=== PATIENT | male | born 1935 | race Caucasian/White ===

== ENCOUNTER 2018-03-28 13:15 | Inpatient (IN) | payer MEDICARE, BC, SELFPAY ==
[2018-03-28] VITALS (18 sets, daily range): BP systolic 99–141; BP diastolic 51–72; PULSE 57–84; RESP 14–21; TEMP 36.6–37; O2SAT 93–98; BMI 39.8; BMI 39.2
--- NOTE | 2018-03-28 13:38 | EKG12_ITS ---
Test Reason : Blood Pressure : / mmHG Vent. Rate : 065 BPM Atrial Rate : 065 BPM P-R Int : 202 ms QRS Dur : 102 ms QT Int : 420 ms P-R-T Axes : 031 -34 016 degrees QTc Int : 436 ms Normal sinus rhythm with sinus arrhythmia Left axis deviation Abnormal ECG Confirmed by STEVE PEOPLES, MINOR ([id number]), news editor ALEX LUCIO ([id number]) on 03/31/2018 2:48:25 PM Referred By: EMERALD Confirmed By:MINOR WILSON MD
--- NOTE | 2018-03-28 13:45 | RAD_ITS ---
STUDY: X-RAY CHEST REASON FOR EXAM: Male, 82 years old. Chest pain. Weakness. TECHNIQUE: Single AP portable view of the chest. COMPARISON: Comparison is made with prior study dated December 02, 2016. FINDINGS: Hyperinflation. Scattered calcified granulomas. There is no demonstrated pleural abnormality. There is mild cardiac enlargement. Normal mediastinum and joey. There is prominence of the pulmonary hilar arteries without peripheral pulmonary vascular congestion, suggesting pulmonary hypertension. There is atherosclerotic calcification of the aortic arch with tortuosity. There are diffuse degenerative changes of the visualized thoracic spine. Normal visualized ribs, clavicles, and shoulders. There is no demonstrated abnormality of the visualized soft tissue structures of the upper abdomen. RAD/Chest 1 View (Portable) IMPRESSION: Scattered calcified granulomas. Hyperinflation. Prominence of the pulmonary hilar arteries. Electronically Signed: Steve Wyatt MD at 13:59 EST Tel [phone], Service support ,
[2018-03-28] MEDS: Aspirin 81 MG TAB.CHEW 324 MG PO (13:55)
[2018-03-28 14:09] LABS: Hematocrit 24.3 % (40-54); Hemoglobin 7.6 g/dl (13.0-16.5); Mean Corp Hgb Conc 31.3 g/gl (32-36); Mean Corpuscular Hgb 31.9 pg (27.0-32.0); Mean Corpuscular Volume 102.1 fL (80-94); Mean Platelet Vol. 9.8 fl (6.2-12.0); Platelet Count 206 K/mm3 (150-450); RBC Distribution Width CV 16.1 % (11.6-14.6); RBC Distribution Width SD 57.4 fl (35.1-43.9); Red Blood Count 2.38 M/mm3 (4.6-6.2); White Blood Count 13.4 K/mm3 (4.4-11.0)
[2018-03-28 14:15] LABS: Differential Indicated MANUAL DIFF; POSITIVE COUNT YES; POSITIVE DIFFERENTIAL NO; POSITIVE MORPHOLOGY YES
[2018-03-28 14:17] LABS: Erythrocyte Sedimentation Rate 24 mm/hr (0-20)
[2018-03-28 14:24] LABS: Anion Gap 9 (5-15); BUN 54 mg/dL (7-18); BUN/Creat Ratio 31.8 RATIO (10-20); Calcium,Total 8.4 mg/dL (8.5-10.1); Chloride 113 mmol/L (98-107); EST Glomerular Filtration Rate 41 mL/min (>60); Est Glom Filt Rate - Afr Amer 50 mL/min (>60); Estimated Creatinine Clearance 39.62 ml/min; Glucose 134 mg/dL (74-106); Potassium 4.5 mmol/L (3.5-5.1); Sodium Level 141 mmol/L (136-145)
[2018-03-28 14:33] LABS: Eosinophil 2 % (0-5); Lymphocyte 13 % (19-41); Metamyelocyte 1 % (0-1); Monocyte 9 % (0-10); Neutrophil-Band 1 % (0-5); Neutrophil-Segmented 74 % (47-70); Total Cells Counted 100 (MANUAL DIFF)
[2018-03-28 14:34] LABS: Absolute Neutrophil Count 10.7 X10^3/uL (2.0-7.7); Hypochromasia 2+; Platelet Estimate ADEQUATE (ADEQ); Polychromasia RARE
[2018-03-28 14:35] LABS: Absolute Lymphocyte Count 1.74 X10^3/ul (0.83-4.51)
--- NOTE | 2018-03-28 15:04 | NURSING ---
DR CAMPBELL IN ER
--- NOTE | 2018-03-28 15:20 | NURSING ---
PCU ANEMIA, NSTEMI PAINTSIL
--- NOTE | 2018-03-28 15:25 | ED.VISSUMM ---
- ER Visit Summary Date of Service: 03/28/18 Chief Complaint: Chest pain History of Present Illness: The patient is a [address] Lovell. He reports that his chest pain that began 4 days ago. States that this only occurs at night when he lays down. Complains of a sharp pain to both sides of his chest that begins when he lays down. States pain is 7-10 at worst and is pain-free currently. States pain resolves when he gets up and sits in his recliner. Does report it makes him very short of breath. Patient does report that over the past 4 days he is also had dyspnea on exertion. However, he does not have chest pain with exertion. Patient states that this all began the day after he got a flu shot. States that since that time he has not felt well. He complains of generalized weakness. He reports that he had 2 days of diarrhea. He did not look at the stool. He does not know if it was black and tarry. He reports that he took Kaopectate and has not had diarrhea for the past 1-2 days. He reports he had a normal bowel movement today. Patient reports that his last colonoscopy was approximately [address] Saleh. States he gets colonoscopy every 5 years. He denies any source of blood loss. Is not had any nosebleeds or injuries. Does report he takes Advil twice a day for back pain. Physical Examination: Vitals: 98.1, 99/54, 84, 18, 93% room air which is not hypoxic. General: Well-nourished and well-developed. Head: Normocephalic atraumatic. Neck: Supple, no lymphadenopathy. No JVD. Nontender. Cardiovascular: Regular rate and rhythm. 2 out of 6 systolic murmur. Respiratory: No respiratory distress. Clear to auscultation bilaterally. No crackles. Abdominal: Soft, nontender, nondistended, normal bowel sounds. No guarding, rebound, or peritoneal signs. Back: Nontender. Extremities: Nontender, 1+ pitting edema of his lower extremity bilaterally. Skin: Normal color, no rash. Neurologic: Alert and oriented ?3. Cranial nerves II through XII are intact. Normal strength and sensation. Psych: Normal affect. Test Results: EKG is sinus at 65 with Q waves in leads III. Is essentially unchanged from November 2016. Troponin is 1.21. Chem-7 is more for chloride 113, CO2 of 19, BUN 54, creatinine 1.7, glucose 134, calcium 8.4. CBC is more for a white count of 13.4 with 74 segmented neutrophils and 13 lymphocytes. H&H is 7.6 and 24.3. His last hemoglobin was November 2016 at that time it was 12.4. ESR is 24. Chest x-ray shows chronic changes. Emergency Department Course and Treatment: Patient was initially treated with aspirin. When his labs returned I went in and talked with him about any source of blood loss and he does not know of any. Does report that his diarrhea was malodorous. He was given Protonix IV. Treatment Plan: Patient was discussed with Dr. Parker. At this time with the anemia as well as the atypical nature of this the patient will not be anticoagulated. He asked patient get an echocardiogram to rule out pericarditis/myocarditis and an effusion. The patient was also discussed with Dr. Kumar and Dr. Rodgers. He was typed and crossed for 2 units of packed red blood cells. He is resting comfortably. Disposition: Admitted in serious condition. Impression: 1. Anemia. 2. Non-ST elevation [place]. 3. Chronic renal insufficiency. 4. Critical care time 30 minutes. This note was generated with [employer] dictation software. It may contain incorrect words, spelling, and punctuation that were not noted in review of the chart prior to signing ED Disposition - Plan for ED Patient: Chief Complaint: Chest Pain Referrals: Alexandro Lovell MD [Primary Care Provider] -
--- NOTE | 2018-03-28 15:31 | ED.DCSUM_ITS ---
- ER Visit Summary Date of Service: 03/28/18 Chief Complaint: Chest pain History of Present Illness: The patient is a [address] Lovell. He reports that his chest pain that began 4 days ago. States that this only occurs at night when he lays down. Complains of a sharp pain to both sides of his chest that begins when he lays down. States pain is 7-10 at worst and is pain- free currently. States pain resolves when he gets up and sits in his recliner. Does report it makes him very short of breath. Patient does report that over the past 4 days he is also had dyspnea on exertion. However, he does not have chest pain with exertion. Patient states that this all began the day after he got a flu shot. States that since that time he has not felt well. He complains of generalized weakness. He reports that he had 2 days of diarrhea. He did not look at the stool. He does not know if it was black and tarry. He reports that he took Kaopectate and has not had diarrhea for the past 1-2 days. He reports he had a normal bowel movement today. Patient reports that his last colonoscopy was approximately [address] Saleh. States he gets colonoscopy every 5 years. He denies any source of blood loss. Is not had any nosebleeds or injuries. Does report he takes Advil twice a day for back pain. Physical Examination: Vitals: 98.1, 99/54, 84, 18, 93% room air which is not hypoxic. General: Well-nourished and well-developed. Head: Normocephalic atraumatic. Neck: Supple, no lymphadenopathy. No JVD. Nontender. Cardiovascular: Regular rate and rhythm. 2 out of 6 systolic murmur. Respiratory: No respiratory distress. Clear to auscultation bilaterally. No crackles. Abdominal: Soft, nontender, nondistended, normal bowel sounds. No guarding, rebound, or peritoneal signs. Back: Nontender. Extremities: Nontender, 1+ pitting edema of his lower extremity bilaterally. Skin: Normal color, no rash. Neurologic: Alert and oriented ?3. Cranial nerves II through XII are intact. Normal strength and sensation. Psych: Normal affect. Test Results: EKG is sinus at 65 with Q waves in leads III. Is essentially unchanged from November 2016. Troponin is 1.21. Chem-7 is more for chloride 113, CO2 of 19, BUN 54, creatinine 1.7, glucose 134, calcium 8.4. CBC is more for a white count of 13.4 with 74 segmented neutrophils and 13 lymphocytes. H&H is 7.6 and 24.3. His last hemoglobin was November 2016 at that time it was 12.4. ESR is 24. Chest x-ray shows chronic changes. Emergency Department Course and Treatment: Patient was initially treated with aspirin. When his labs returned I went in and talked with him about any source of blood loss and he does not know of any. Does report that his diarrhea was malodorous. He was given Protonix IV. Treatment Plan: Patient was discussed with Dr. Parker. At this time with the anemia as well as the atypical nature of this the patient will not be anticoagulated. He asked patient get an echocardiogram to rule out per icarditis/myocarditis and an effusion. The patient was also discussed with Dr. Kumar and Dr. Rodgers. He was typed and crossed for 2 units of packed red blood cells. He is resting comfortably. Disposition: Admitted in serious condition. Impression: 1. Anemia. 2. Non-ST elevation [place]. 3. Chronic renal insufficiency. 4. Critical care time 30 minutes. This note was generated with [employer] dictation software. It may contain incorrect words, spelling, and punctuation that were not noted in review of the chart prior to signing ED Disposition - Plan for ED Patient: Chief Complaint: Chest Pain Referrals: Alexandro Lovell MD [Primary Care Provider] -
--- NOTE | 2018-03-28 15:52 | HP.PCM_ITS ---
Problem List (1) GI bleed Status: Acute Qualifiers: GI bleed type/associated pathology: unspecified gastrointestinal hemorrhage type Qualified Code(s): K92.2 - Gastrointestinal hemorrhage, unspecified (2) Macrocytic anemia Status: Chronic (3) Osteoarthritis Status: Chronic Qualifiers: Osteoarthritis location: unspecified site Osteoarthritis type: unspecified Qualified Code(s): M19.90 - Unspecified osteoarthritis, unspecified site (4) Hypothyroidism Status: Chronic Qualifiers: Hypothyroidism type: unspecified Qualified Code(s): E03.9 - Hypothyroidism, unspecified (5) Gout Status: Chronic Qualifiers: Gout site: unspecified site Gout etiology: unspecified cause Chronicity: unspecified Qualified Code(s): M10.9 - Gout, unspecified (6) HTN (hypertension) Status: Chronic Qualifiers: Hypertension type: essential hypertension Qualified Code(s): I10 - Essential (primary) hypertension History of Present Illness Date of Admission: 03/28/18 Chief Complaint: Chest pain - 4 day. Fatigue - for some days The patient is a 82 year old M with past medical history of chronic back pain, on ibuprofen, hypothyroidism, hypertension who comes in with complaints of chest pain that has been going on for about 4 days. He attributes this to some flu shot today he had 4 days prior. He had generalized pain and diarrhea after the flu shot. Over the last 2 days, he has noticed melena stools. He admits to using ibuprofen 2 tablets 3 times a day for chronic back pain. He developed chest pain that started days ago, substernal, nonradiating, not associated with any symptom. He admits to feeling slightly lightheaded. He denied any history of cardiac conditions. No history of [place] or stents. Vitals in ED, temp 98.1F, HR 84, BP 99/54, RR 18, SpO2 98% on RA. Labs showed RBC count of 3.4, hemoglobin 7.6, MCV 102.1, platelet count 206, sodium 141, potassium 4.5, chloride 113, bicarbonate 19, BUN 54, creatinine 1.7, troponins were elevated at 1.210. EKG shows NSR, no acute ST-T changes. Cardiology consulted by ED. Past Medical History Past Medical History (Chronic Problems): Chronic Problems Macrocytic anemia (Chronic) Morbid obesity with BMI of 40.0-44.9, adult (Chronic) Osteoarthritis (Chronic) Hypothyroidism (Chronic) Gout (Chronic) HTN (hypertension) (Chronic) CKD (chronic kidney disease) stage 3, GFR 30-59 ml/min (Chronic) Allergies No Known Allergies Allergy (Verified 05/19/16 03:11) Home Medications: Ambulatory Orders Medication Instructions Recorded RX: Multivitamin [Daily Multiple 1 each PO DAILY 05/19/16 Vitamin] RX: Aspirin 650 mg PO DAILY 12/02/16 RX: Meclizine HCl [Antivert] 12.5 mg PO TID PRN PRN #30 tablet 12/03/16 Ibuprofen [Advil] 400 mg PO DAILY 03/28/18 Irbesartan 150 mg PO DAILY 03/28/18 Levothyroxine Sodium [Synthroid] 125 mcg PO DAILY 03/28/18 Oxaprozin [Daypro] 600 mg PO DAILY 03/28/18 RX: Allopurinol [Zyloprim] 300 mg PO DAILY 03/28/18 RX: Fluoxetine HCl 40 mg PO DAILY 03/28/18 Surgical History: - - Bilateral total hip repair, bilateral foot surgeries. Psychiatric History: No pertinent psych hx Smoking Status: Former smoker Tobacco Use: Non-smoker Alcohol: None Drugs: None - *Family History Maternal History Items: No pertinent history Paternal History Items: Cancer - Tobacco user, lung cancer diagnosis. Review of Systems Constitutional: Reports: Weakness. Denies: Anorexia, Chills, Fever, Malaise, Weight Change Eyes: Denies: Blurred vision, Conjunctivae Inflammation, Double vision, Pain, Redness HEENT: Denies: Difficulty Hearing, Difficulty Swallowing, Head Aches, Hearing Changes, Nasal bleeding, Nasal Congestion, Sinus Congestion, Sinus Drainage Cardiovascular: Reports: Chest Pain, Chest Pressure, Chest Tightness, Light Headedness. Denies: Orthopnea, Palpitations, Paroxysmal Noc. Dyspnea Respiratory: Reports: Shortness of Breath, Shortness of breath upon exertion. Denies: Cough, Shortness of breath at rest, Sputum production Gastrointestinal: Denies: Abdominal Pain, Constipation, Hematemesis, Hematochezia, Nausea, Melena, Vomiting Genitourinary: Denies: Dysuria, Frequency, Incontinence Musculoskeletal: Denies: Joint Pain, Joint stiffness, Joint swelling, Joint Tenderness Skin: Denies: Rash, Wounds Neurological: Denies: Difficulty swallowing, Focal weakness, Numbness, Tingling Psychiatric: Denies: Anxiety, Depression, Homicidal Ideations, Suicidal Ideations Hematologic/ Lymphatic: Denies: Easy Bruising, Easy Bleeding VTE Information - Inpt Only VTE Present on Admission: No VTE Pharm Prophylaxis ordered?: Yes Patient Problems: Active and Suspected Problems GI bleed (Acute) - Physical Exam General: Alert, Oriented x3, Cooperative, - - obese HEENT: Atraumatic, PERRLA, EOMI, Normocephalic Oral: Moist Mucosa Neck: Supple, No JVD, Negative Carotid Bruits Lungs: Clear to auscultation, Normal air movement Cardiovascular: Regular rate, Regular Rhythm, Normal S1, Normal S2, No murmurs Abdomen: Bowel Sounds Present, Soft, Non Tender, Non-Distended, No Hepato- splenomegaly Extremities: Edema - Trace bilateral edema Skin: No rashes, No breakdown Musculoskeletal: No Tenderness to Palpation of Joints or Extremities Lymphatic: No Cervical, Supraclavicular, or Inguinal Adenopathy Neurological: Cranial nerves II-XII grossly intact, Neuro grossly intact Psych/Mental Status: Normal Affect, Appropriate Vital Signs Temp Pulse Resp BP Pulse Ox 98.1 F 65 21 H 99/54 L 98 03/28/18 13:15 03/28/18 15:26 03/28/18 15:26 03/28/18 13:15 03/28/18 15:26 Oxygen Delivery Method Room Air Weight: 140.614 kg Body Mass Index (BMI) 39.8 Finger Stick Blood Glucose 119 Laboratory Tests Past 24 Hrs 03/28/18 03/28/18 03/28/18 13:50 13:50 15:00 WBC 13.4 H RBC 2.38 L Hgb 7.6 L Hct 24.3 L MCV 102.1 H MCH 31.9 MCHC 31.3 L RDW 16.1 H RDW Differential 57.4 H Plt Count 206 MPV 9.8 Neut % (Auto) Not Reportable Absolute Neuts (auto) 10.7 H Absolute Lymphs (auto) 1.74 Total Counted 100 Neutrophils % (Manual) 74 H Band Neutrophils % 1 Lymphocytes % (Manual) 13 L Monocytes % (Manual) 9 Eosinophils % (Manual) 2 Metamyelocytes % 1 Diff Path Review May foll Platelet Estimate ADEQUATE Polychromasia RARE Hypochromasia 2+ ESR 24 H Sodium 141 Potassium 4.5 Chloride 113 H Carbon Dioxide 19.0 L Anion Gap 9 BUN 54 H Creatinine 1.70 H Estim Creat Clear Calc 39.62 Est GFR (MDRD) Af Amer 50 L Est GFR (MDRD) Non-Af 41 L BUN/Creatinine Ratio 31.8 H Glucose 134 H Calcium 8.4 L Troponin I 1.210 H* Blood Type Pending Antibody Screen Pending Crossmatch See Detail Assessment/Plan All Active Problems GI bleed (Acute) Hyperkalemia (Acute) Sepsis (Acute) Cellulitis (Acute) 82 year old M with past medical history of chronic back pain, on ibuprofen, hypothyroidism, hypertension who comes in with complaints of chest pain that has been going on for days. 1. Acute chest pain/Acute NSTEMI, Type 2, no hx of cardiac disease, due to severe anemia, no acute ST-T changes Plan: Admit to PCU, monitor on telemetry, we will not anticoagulate or use aspirin or Plavix, cardiology consult, 2D echo, repeat EKG in a.m. 2. Severe symptomatic anemia, likely second to Acute GI bleed; patient admitted with hemoglobin of 7.6, last hemoglobin in [id number] 12.4, will transfuse 2 units of packed RBC, monitor H&H, general surgery consult 3. Acute GI bleed, likely secondary to upper GI, secondary to ibuprofen use, stable vitals,will continue on IV fluids, packed RBCs, IV PPI drip, general surgery consulted, EGD colonoscopy in a.m. 4. Chronic back pain, on ibuprofen, will continue on tylenol, oxycodone as needed for pain. 5. Hypertension, controlled, continue on home blood pressure medication with holding parameters 6. Hypothyroidism, on levothyroxine 7. Gout, on allopurinol 8. DVT prophylaxis with SCDs Code Visit Inpatient E&M: 68839 Init Hosp L3
--- NOTE | 2018-03-28 15:59 | ECHOCS_ITS ---
Reason For Study: CHEST PAIN Procedure This was a 2D Doppler, Color Flow transthoracic echocardiogram. Techncially difficult . Pt was unable to stay awake to work with breathing for improved imaging. Poor parasternal windows. The study was technically difficult. Contrast injection was performed. Exam performed portable in patient room. Left Ventricle Normal LV size. Mild concentric left ventricular hypertrophy. Segmental dysfunction with preserved ejection fraction (see wall motion). The estimated ejection fraction is 60 %. There is evidence of diastolic dysfunction. Infero-Basal: Hypokinetic. Right Ventricle Normal RV size. Normal systolic function. Atria The left atrium is mildly enlarged. Normal right atrium. No doppler evidence for ASD. Mitral Valve There is no mitral annular calcification. Normal mitral valve. Trivial mitral valve insufficiency. Tricuspid Valve Normal tricuspid valve. Mild tricuspid valve insufficiency. Right ventricular systolic pressure estimated to be 50 mmHg. Aortic Valve The aortic valve is not well visualized. Trisinus/trileaflet aortic valve. Mild focal aortic valve calcification. Aortic valve sclerosis / mild aortic valve stenosis. Trivial aortic valve insufficiency. Pulmonic Valve The pulmonic valve is not well visualized. Great Vessels The aortic root is not well visualized. Pericardium/Pleural No pericardial effusion. Medication Diluted definity 4ml given slow IV push to enhance endocardial definition. MMode/2D Measurements & Calculations LVIDd: 5.1 cm IVSd: 1.4 cm LVOT diam: 2.2 cm LVIDs: 3.7 cm LVPWd: 1.3 cm LVOT area: 3.9 cm2 RVDd: 4.3 cm FS: 28.7 % Ao root diam: 3.3 cm LAV(MOD-bp): 95.7 ml LVAd ap4: 50.9 cm2 LAV(MOD-bp) Indexed: 36.6 ml/m2 EDV(MOD-sp4): 195.8 ml LAV(MOD-sp2): 89.6 ml EDV(sp4-el): 215.2 ml LAV(MOD-sp4): 87.2 ml LVAs ap4: 26.3 cm2 ESV(MOD-sp4): 66.6 ml ESV(sp4-el): 72.8 ml EF(MOD-sp4): 66.0 % EF(sp4-el): 66.2 % SV(MOD-sp4): 129.2 ml SV(sp4-el): 142.4 ml LA A4 area: 27.8 cm2 LA dimension(2D): 4.3 cm RA A4 area: 20.7 cm2 Time Measurements MV dec time: 0.54 sec Doppler Measurements & Calculations MV E max lon: 49.1 cm/sec Lat Peak E' Lon: 9.9 cm/sec Med Peak E' Lon: 5.6 cm/sec MV A max lon: 95.2 cm/sec E/E' lat: 4.9 E/E' med: 8.8 MV E/A: 0.52 Ao V2 max: 234.2 cm/sec LV V1 max: 95.7 cm/sec SV(LVOT): 102.1 ml Ao max P.0 mmHg LV V1 max P.7 mmHg Ao V2 mean: 168.3 cm/sec LV V1 mean P.4 mmHg Ao mean P.5 mmHg LV V1 mean: 74.1 cm/sec Ao V2 VTI: 58.2 cm LV V1 VTI: 26.4 cm NAEEM(I,D): 1.8 cm2 NAEEM(V,D): 1.6 cm2 PA V2 max: 108.9 cm/sec TR max lon: 323.1 cm/sec TR max P.9 mmHg Interpretation Summary The study was technically difficult. Contrast injection was performed. Segmental dysfunction with preserved ejection fraction (see wall motion). The estimated ejection fraction is 60 %. Mild concentric left ventricular hypertrophy. The left atrium is mildly enlarged. Trivial mitral valve insufficiency. Mild tricuspid valve insufficiency. Aortic valve sclerosis / mild aortic valve stenosis. Trivial aortic valve insufficiency. Right ventricular systolic pressure estimated to be 50 mmHg. There is evidence of diastolic dysfunction. Ordering Physician: Nakita Kumar Referring Physician: ANTHONY GEORGE Performed By: Cierra Sosa, ERNESTINACS, RVT
--- NOTE | 2018-03-28 16:17 | EKG12_ITS ---
Test Reason : CP ADMISSION Blood Pressure : / mmHG Vent. Rate : 068 BPM Atrial Rate : 068 BPM P-R Int : 200 ms QRS Dur : 100 ms QT Int : 430 ms P-R-T Axes : 039 -34 005 degrees QTc Int : 457 ms Normal sinus rhythm Left axis deviation Low voltage QRS Abnormal ECG When compared with ECG of 28-MAR-2018 13:27, MANUAL COMPARISON REQUIRED, DATA IS UNCONFIRMED Confirmed by STEVE PEOPLES, MINOR ([id number]), make up editor ALEX LUCIO ([id number]) on 04/03/2018 2:06:49 PM Referred By: NURSE Confirmed By:MINOR WILSON MD
[2018-03-28] MEDS: 0.9% Normal Saline 1,000 ML 75 ML IV (17:06)
--- NOTE | 2018-03-28 17:29 | PCM.CONS.GEN ---
Reason for Consult Date of Consultation: 03/28/18 History of Present Illness: The patient is a 82 year old M presented to the ER due to chest pain. Patient states for the last 3-4 nights when he lays down he would have chest pain and last night was the worst. He got up and went to his recliner it lasted for about 15-20 minutes, patient also admits shortness of breath during this chest pain.. He has had a history of pleurisy which was greater than 10 years ago. Patient also admits that on Tuesday he had some diarrhea did take care of peptic x2 which resolved his diarrhea however he did have some black stool and his last bowel movement today was normal formed but black in color. Patient has been taking 2 ibuprofen with breakfast a total of 400 mg then Daypro which is another NSAID x2 at lunch and 2 extra strength aspirin at dinner for his back pain. Admit for the last 2 months he has had a decreased appetite but he does admit to eating 3 meals a day still just less at each meal. Patient denies ever having EGD in the past but admits to having a colonoscopy about 2-[address] Saleh and states it was negative. Denies any abdominal pain. Past Medical History Past Medical History (Chronic Problems): Chronic Problems Chronic renal insufficiency (Chronic) Morbid obesity with BMI of 40.0-44.9, adult (Chronic) Osteoarthritis (Chronic) Hypothyroidism (Chronic) Gout (Chronic) HTN (hypertension) (Chronic) CKD (chronic kidney disease) stage 3, GFR 30-59 ml/min (Chronic) Allergies No Known Allergies Allergy (Verified 05/19/16 03:11) Home Medications: Ambulatory Orders Medication Instructions Recorded RX: Multivitamin [Daily Multiple 1 each PO DAILY 05/19/16 Vitamin] RX: Aspirin 650 mg PO DAILY 12/02/16 RX: Meclizine HCl [Antivert] 12.5 mg PO TID PRN PRN #30 tablet 12/03/16 Ibuprofen [Advil] 400 mg PO DAILY 03/28/18 Irbesartan 150 mg PO DAILY 03/28/18 Levothyroxine Sodium [Synthroid] 125 mcg PO DAILY 03/28/18 Oxaprozin [Daypro] 600 mg PO DAILY 03/28/18 RX: Allopurinol [Zyloprim] 300 mg PO DAILY 03/28/18 RX: Fluoxetine HCl 40 mg PO DAILY 03/28/18 Surgical History: total hip arthroplasty, - - Bilateral total hip repair, bilateral foot surgeries. Psychiatric History: No pertinent psych hx Lives: Spouse/ Significant Other Smoking Status: Former smoker Tobacco Use: Cigarettes, Cigars, Pipe - *Family History Maternal History Items: No pertinent history Paternal History Items: Cancer - Tobacco user, lung cancer diagnosis. Review of Systems Constitutional: Denies: Anorexia, Chills, Fever HEENT: Denies: Difficulty Swallowing Cardiovascular: Denies: Chest Pain - Currently denies Respiratory: Denies: Shortness of Breath Gastrointestinal: Denies: Abdominal Pain, Nausea, Vomiting Musculoskeletal: Reports: Back Pain Psychiatric: Denies: Anxiety Hematologic/ Lymphatic: Denies: Easy Bruising, Easy Bleeding Patient Problems: Active and Suspected Problems GI bleed (Acute) NSTEMI (non-ST elevated myocardial infarction) (Acute) - Physical Exam General: Alert, Oriented x3, Cooperative, No apparent distress HEENT: Atraumatic Lungs: Normal air movement Cardiovascular: Regular rate Abdomen: Soft, Non Tender - No peritoneal signs, Non-Distended Extremities: No clubbing, No cyanosis Neurological: Cranial nerves II-XII grossly intact Psych/Mental Status: Normal Affect Vital Signs Temp Pulse Resp BP Pulse Ox 97.8 F 57 L 20 H 141/67 H 97 03/28/18 16:13 03/28/18 16:13 03/28/18 16:13 03/28/18 16:14 03/28/18 16:13 Oxygen Delivery Method Room Air Weight: 305 lb 5.443 oz Body Mass Index (BMI) 39.2 Finger Stick Blood Glucose 119 Laboratory Tests Past 24 Hrs 03/28/18 03/28/18 03/28/18 13:50 13:50 15:00 WBC 13.4 H RBC 2.38 L Hgb 7.6 L Hct 24.3 L MCV 102.1 H MCH 31.9 MCHC 31.3 L RDW 16.1 H RDW Differential 57.4 H Plt Count 206 MPV 9.8 Neut % (Auto) Not Reportable Absolute Neuts (auto) 10.7 H Absolute Lymphs (auto) 1.74 Total Counted 100 Neutrophils % (Manual) 74 H Band Neutrophils % 1 Lymphocytes % (Manual) 13 L Monocytes % (Manual) 9 Eosinophils % (Manual) 2 Metamyelocytes % 1 Diff Path Review May foll Platelet Estimate ADEQUATE Polychromasia RARE Hypochromasia 2+ ESR 24 H Sodium 141 Potassium 4.5 Chloride 113 H Carbon Dioxide 19.0 L Anion Gap 9 BUN 54 H Creatinine 1.70 H Estim Creat Clear Calc 39.62 Est GFR (MDRD) Af Amer 50 L Est GFR (MDRD) Non-Af 41 L BUN/Creatinine Ratio 31.8 H Glucose 134 H Calcium 8.4 L Troponin I 1.210 H* Blood Type A POSITIVE Antibody Screen NEGATIVE Crossmatch See Detail 03/28/18 16:38 WBC RBC Hgb Hct MCV MCH MCHC RDW RDW Differential Plt Count MPV Neut % (Auto) Absolute Neuts (auto) Absolute Lymphs (auto) Total Counted Neutrophils % (Manual) Band Neutrophils % Lymphocytes % (Manual) Monocytes % (Manual) Eosinophils % (Manual) Metamyelocytes % Diff Path Review Platelet Estimate Polychromasia Hypochromasia ESR Sodium Potassium Chloride Carbon Dioxide Anion Gap BUN Creatinine Estim Creat Clear Calc Est GFR (MDRD) Af Amer Est GFR (MDRD) Non-Af BUN/Creatinine Ratio Glucose Calcium Troponin I 1.180 H* Blood Type Antibody Screen Crossmatch Assessment/Plan All Active Problems GI bleed (Acute) NSTEMI (non-ST elevated myocardial infarction) (Acute) Macrocytic anemia (Acute) Hyperkalemia (Acute) Sepsis (Acute) Cellulitis (Acute) 82-year-old male with anemia, melena, elevated troponins 1. Patient is on clears until midnight and n.p.o., patient is getting 2 units packed red blood cells current hemoglobin was 7.6, continue PPI drip. I have offered the patient EGD for evaluation if anesthesia is okay with his elevated troponin which in talking to the hospitalist cardiology believes it may be a demand ischemia due to the anemia. I have explained the risks/benefits of the procedure and described the procedure. I have discussed the risks with the patient, including but not limited to: infection, bleeding, perforation of the GI tract requiring emergency surgery, inability to complete the procedure, injury to any internal organs, complications of anesthesia, etc. - the patient understands and agrees to proceed. I have answered all the patient's questions to the patient's satisfaction and the patient has no further questions. Nola Rodgers M.D. Pager: [phone] [facility] [address] [place] [address], Outpatient [place], [address] [place] [address] Office: [phone] Code Visit Inpatient E&M: 25975 Init Hosp L1
--- NOTE | 2018-03-28 17:33 | CON.PCM_ITS ---
Reason for Consult Date of Consultation: 03/28/18 History of Present Illness: The patient is a 82 year old M presented to the ER due to chest pain. Patient states for the last 3-4 nights when he lays down he would have chest pain and last night was the worst. He got up and went to his recliner it lasted for about 15-20 minutes, patient also admits shortness of breath during this chest pain.. He has had a history of pleurisy which was greater than 10 years ago. Patient also admits that on Tuesday he had some diarrhea did take care of peptic x2 which resolved his diarrhea however he did have some black stool and his last bowel movement today was normal formed but black in color. Patient has been erich ing 2 ibuprofen with breakfast a total of 400 mg then Daypro which is another NSAID x2 at lunch and 2 extra strength aspirin at dinner for his back pain. Admit for the last 2 months he has had a decreased appetite but he does admit to eating 3 meals a day still just less at each meal. Patient denies ever having EGD in the past but admits to having a colonoscopy about 2-[address] Saleh and states it was negative. Denies any abdominal pain. Past Medical History Past Medical History (Chronic Problems): Chronic Problems Chronic renal insufficiency (Chronic) Morbid obesity with BMI of 40.0-44.9, adult (Chronic) Osteoarthritis (Chronic) Hypothyroidism (Chronic) Gout (Chronic) HTN (hypertension) (Chronic) CKD (chronic kidney disease) stage 3, GFR 30-59 ml/min (Chronic) Allergies No Known Allergies Allergy (Verified 05/19/16 03:11) Home Medications: Ambulatory Orders Medication Instructions Recorded RX: Multivitamin [Daily Multiple 1 each PO DAILY 05/19/16 Vitamin] RX: Aspirin 650 mg PO DAILY 12/02/16 RX: Meclizine HCl [Antivert] 12.5 mg PO TID PRN PRN #30 tablet 12/03/16 Ibuprofen [Advil] 400 mg PO DAILY 03/28/18 Irbesartan 150 mg PO DAILY 03/28/18 Levothyroxine Sodium [Synthroid] 125 mcg PO DAILY 03/28/18 Oxaprozin [Daypro] 600 mg PO DAILY 03/28/18 RX: Allopurinol [Zyloprim] 300 mg PO DAILY 03/28/18 RX: Fluoxetine HCl 40 mg PO DAILY 03/28/18 Surgical History: total hip arthroplasty, - - Bilateral total hip repair, bilateral foot surgeries. Psychiatric History: No pertinent psych hx Lives: Spouse/ Significant Other Smoking Status: Former smoker Tobacco Use: Cigarettes, Cigars, Pipe - *Family History Maternal History Items: No pertinent history Paternal History Items: Cancer - Tobacco user, lung cancer diagnosis. Review of Systems Constitutional: Denies: Anorexia, Chills, Fever HEENT: Denies: Difficulty Swallowing Cardiovascular: Denies: Chest Pain - Currently denies Respiratory: Denies: Shortness of Breath Gastrointestinal: Denies: Abdominal Pain, Nausea, Vomiting Musculoskeletal: Reports: Back Pain Psychiatric: Denies: Anxiety Hematologic/ Lymphatic: Denies: Easy Bruising, Easy Bleeding Patient Problems: Active and Suspected Problems GI bleed (Acute) NSTEMI (non-ST elevated myocardial infarction) (Acute) - Physical Exam General: Alert, Oriented x3, Cooperative, No apparent distress HEENT: Atraumatic Lungs: Normal air movement Cardiovascular: Regular rate Abdomen: Soft, Non Tender - No peritoneal signs, Non-Distended Extremities: No clubbing, No cyanosis Neurological: Cranial nerves II-XII grossly intact Psych/Mental Status: Normal Affect Vital Signs Temp Pulse Resp BP Pulse Ox 97.8 F 57 L 20 H 141/67 H 97 03/28/18 16:13 03/28/18 16:13 03/28/18 16:13 03/28/18 16:14 03/28/18 16:13 Oxygen Delivery Method Room Air Weight: 305 lb 5.443 oz Body Mass Index (BMI) 39.2 Finger Stick Blood Glucose 119 Laboratory Tests Past 24 Hrs 03/28/18 03/28/18 03/28/18 13:50 13:50 15:00 WBC 13.4 H RBC 2.38 L Hgb 7.6 L Hct 24.3 L MCV 102.1 H MCH 31.9 MCHC 31.3 L RDW 16.1 H RDW Differential 57.4 H Plt Count 206 MPV 9.8 Neut % (Auto) Not Reportable Absolute Neuts (auto) 10.7 H Absolute Lymphs (auto) 1.74 Total Counted 100 Neutrophils % (Manual) 74 H Band Neutrophils % 1 Lymphocytes % (Manual) 13 L Monocytes % (Manual) 9 Eosinophils % (Manual) 2 Metamyelocytes % 1 Diff Path Review May foll Platelet Estimate ADEQUATE Polychromasia RARE Hypochromasia 2+ ESR 24 H Sodium 141 Potassium 4.5 Chloride 113 H Carbon Dioxide 19.0 L Anion Gap 9 BUN 54 H Creatinine 1.70 H Estim Creat Clear Calc 39.62 Est GFR (MDRD) Af Amer 50 L Est GFR (MDRD) Non-Af 41 L BUN/Creatinine Ratio 31.8 H Glucose 134 H Calcium 8.4 L Troponin I 1.210 H* Blood Type A POSITIVE Antibody Screen NEGATIVE Crossmatch See Detail 03/28/18 16:38 WBC RBC Hgb Hct MCV MCH MCHC RDW RDW Differential Plt Count MPV Neut % (Auto) Absolute Neuts (auto) Absolute Lymphs (auto) Total Counted Neutrophils % (Manual) Band Neutrophils % Lymphocytes % (Manual) Monocytes % (Manual) Eosinophils % (Manual) Metamyelocytes % Diff Path Review Platelet Estimate Polychromasia Hypochromasia ESR Sodium Potassium Chloride Carbon Dioxide Anion Gap BUN Creatinine Estim Creat Clear Calc Est GFR (MDRD) Af Amer Est GFR (MDRD) Non-Af BUN/Creatinine Ratio Glucose Calcium Troponin I 1.180 H* Blood Type Antibody Screen Crossmatch Assessment/Plan All Active Problems GI bleed (Acute) NSTEMI (non-ST elevated myocardial infarction) (Acute) Macrocytic anemia (Acute) Hyperkalemia (Acute) Sepsis (Acute) Cellulitis (Acute) 82-year-old male with anemia, melena, elevated troponins 1. Patient is on clears until midnight and n.p.o., patient is getting 2 units packed red blood cells current hemoglobin was 7.6, continue PPI drip. I have offered the patient EGD for evaluation if anesthesia is okay with his elevated troponin which in talking to the hospitalist cardiology believes it may be a demand ischemia due to the anemia. I have explained the risks/benefits of the procedure and described the procedure. I have discussed the risks with the patient, including but not limited to: infection, bleeding, perforation of the GI tract requiring emergency surgery, inability to complete the procedure, injury to any internal organs, complications of anesthesia, etc. - the patient understands and agrees to proceed. I have answered all the patient's questions to the patient's satisfaction and the patient has no further questions. Nola Rodgers M.D. Pager: [phone] [facility] [address] [place] [address], Outpatient [place], [address] [place] [address] Office: [phone] Code Visit Inpatient E&M: 16181 Init Hosp L1
--- NOTE | 2018-03-28 21:00 | CON.PCM_ITS ---
Problem List (1) NSTEMI (non-ST elevated myocardial infarction) Status: Acute (2) HTN (hypertension) Status: Chronic Qualifiers: Hypertension type: essential hypertension Qualified Code(s): I10 - Essential (primary) hypertension (3) Chronic renal insufficiency Status: Chronic (4) GI bleed Status: Acute Qualifiers: GI bleed type/associated pathology: unspecified gastrointestinal hemorrhage type Qualified Code(s): K92.2 - Gastrointestinal hemorrhage, unspecified (5) Macrocytic anemia Status: Acute Reason for Consult Date of Consultation: 03/28/18 History of Present Illness: The patient is a 82 year old white male who presents for evaluation of chest discomfort with subsequent findings of abnormal cardiac enzymes and anemia thought secondary to a GI bleed. The patient states he has a long-standing history of hypertension for which she has been medically treated. He notes he follows his blood pressures at home. He states they have been under good control. He also appears, based on his medical records, to have a history of chronic renal insufficiency. To the best of his knowledge she has no cardiovascular history. He states that recently he received his influenza a injection. Since that time he has not felt well. He states that he has developed chest discomfort which was more prominent when he was resting supine as opposed to sitting up. He notes he has become more short of breath and dyspneic. He has not had any obvious nausea, emesis, or diaphoresis. There is been no loss of consciousness. He denies any lower extremity peripheral pitting edema. He states [place] with his 2 sons. However, he notes recently he has become more short of breath and dyspneic when walking up an incline on his property. He states that it is not like him. He presented to the emergency department for further evaluation. He had an abnormal troponin I level. His ECG demonstrated sinus rhythm with borderline low voltage QRS and poor R wave progression. He was also noted to be anemic with a hemoglobin of 7.6. He states he does use nonsteroidal anti-inflammatory agents for his chronic back discomfort. He uses a combination of extra strength aspirin and ibuprofen multiple times a day. To the best of his knowledge she has had no cardiovascular testing in the past. At the present time he appears to be resting comfortably. He has had repeat troponin I levels which are decreasing. A repeat ECG demonstrated no significant change. He is receiving PRBCs. [] Past Medical History Allergies/Adverse Reactions: Allergies No Known Allergies Allergy (Verified 05/19/16 03:11) Home Medications: Ambulatory Orders Medication Instructions Recorded Multivitamin [Daily Multiple 1 each PO DAILY 05/19/16 Vitamin] Aspirin 650 mg PO DAILY 12/02/16 Meclizine HCl [Antivert] 12.5 mg PO TID PRN PRN #30 tablet 12/03/16 Allopurinol [Zyloprim] 300 mg PO DAILY 03/28/18 Fluoxetine HCl 40 mg PO DAILY 03/28/18 Ibuprofen [Advil] 400 mg PO DAILY 03/28/18 Irbesartan 150 mg PO DAILY 03/28/18 Levothyroxine Sodium [Synthroid] 125 mcg PO DAILY 03/28/18 Oxaprozin [Daypro] 600 mg PO DAILY 03/28/18 Past Medical History (Chronic Problems): Chronic Problems Chronic renal insufficiency (Chronic) Morbid obesity with BMI of 40.0-44.9, adult (Chronic) Osteoarthritis (Chronic) Hypothyroidism (Chronic) Gout (Chronic) HTN (hypertension) (Chronic) CKD (chronic kidney disease) stage 3, GFR 30-59 ml/min (Chronic) Surgical History: - - Bilateral total hip repair, bilateral foot surgeries. Psychiatric History: No pertinent psych hx - *Family History Maternal History Items: No pertinent history Paternal History Items: Cancer - Tobacco user, lung cancer diagnosis. Lives: Spouse/ Significant Other Smoking Status: Former smoker Tobacco Use: Non-smoker Alcohol: None Drugs: None Review of Systems - Review of Systems General: Denies: Fever, Night Sweats, Fatigue Cardiovascular: Reports: Chest Discomfort, Chest Discomfort at Rest, Shortness of Breath, Shortness of Breath with Exertion. Denies: Orthopnea, PND, Peripheral Edema, Palpitations, Lightheadedness, Dizziness, Near Syncope, Syncope Respiratory: Reports: Shortness of Breath. Denies: Cough, Sputum Production, Hemoptysis Gastrointestinal: Reports: Melena. Denies: Hematemesis, Hematochezia Genitourinary: Denies: Dysuria, Hematuria Skin: Denies: Rash Subjectve: This is an 82-year-old white male who appears to be resting comfortably at the moment in no acute distress. Objective: Vital Signs Temp Pulse Resp BP Pulse Ox 98 F 69 14 116/61 96 03/28/18 20:51 03/28/18 20:51 03/28/18 20:51 03/28/18 20:51 03/28/18 20:51 Oxygen Delivery Method Room Air Weight: 305 lb 5.443 oz Body Mass Index (BMI) 39.2 Finger Stick Blood Glucose 119 Intake and Output for Last 24 Hours 03/26/18 03/27/18 03/28/18 23:59 23:59 23:59 Intake Total 713 / 713 Balance 713 / 713 General: Awake, Alert, Oriented x 3, Cooperative, No Acute Distress, Obese HEENT: Atraumatic, Normocephalic, PERRL, EOMI, Sclera Non Icteric Oral: Moist Mucosa Neck: Supple, Good ROM, No JVD Lungs: Clear to auscultation Cardiovascular: Regular Rhythm, Normal S2 Vascular: No Carotid Bruits Abdomen: Bowel Sounds Present, Soft, Obese, - - Mild tenderness to palpation over the epigastric area Extremities: No Cyanosis, No Clubbing, No edema Neurological: No Focal Motor or Sensory Deficit Psych/Mental Status: Appropriate, Normal Affect 03/28/18 13:50: WBC 13.4 H, RBC 2.38 L, Hgb 7.6 L, Hct 24.3 L, MCV 102.1 H, MCH 31.9, MCHC 31.3 L, RDW 16.1 H, RDW Differential 57.4 H, Plt Count 206, MPV 9.8, Neut % (Auto) Not Reportable, Absolute Neuts (auto) 10.7 H, Total Counted 100, Neutrophils % (Manual) 74 H, Band Neutrophils % 1, Lymphocytes % (Manual) 13 L, Monocytes % (Manual) 9, Eosinophils % (Manual) 2, Metamyelocytes % 1 03/28/18 13:50: Sodium 141, Potassium 4.5, Chloride 113 H, Carbon Dioxide 19.0 L , Anion Gap 9, BUN 54 H, Creatinine 1.70 H, Est GFR (MDRD) Af Amer 50 L, Est GFR (MDRD) Non-Af 41 L, BUN/Creatinine Ratio 31.8 H, Glucose 134 H, Calcium 8.4 L, Troponin I 1.210 H* 03/28/18 16:38: Troponin I 1.180 H* 03/28/18 19:35: Troponin I 1.110 H* Rhythm: Sinus rhythm EKG: As noted above CXR: Preliminary evaluation: No acute cardiopulmonary disease process appreciated: Please see official report Assessment/Plan 1. Non-ST segment elevation LA The patient has chest discomfort. He has had abnormal troponin I levels. He has had no acute ECG changes. This is also in the setting of her recent influenza A vaccine as well as subsequent findings of anemia. The patient's chest discomfort has a positional component which may suggest a possible underlying pericarditis. On examination the patient does not have a pericardial friction rub at this time. He has had no acute ECG changes. At the same time the patient does need to be monitored for any obvious evidence of an acute coronary syndrome. However his cardiac enzymes, if not thought related to some underlying mild pericardial disease process, may be secondary to a type II event brought on by supply demand mismatch and myocardial ischemia secondary to his anemia. Thus at the present time he will continue to be monitored with cardiac telemetry monitoring, enzyme follow-up, and ECG follow-up. He will have an echocardiogram performed to evaluate his left ventricular wall motion and systolic function as well as his pericardial space. He may eventually need f urther evaluation for the possibility of underlying CAD with noninvasive or invasive studies. In the interim he will be treated medically as able. Ideally this would include agents such as aspirin in addition to nitrates as needed, beta-blockers, lipid- lowering agents, etc. However there is concern using agents such as aspirin and/or antiplatelet agents and her anticoagulants at this time secondary to concern of a GI bleed and subsequent anemia requiring PRBCs. Thus this would make it difficult to proceed with any invasive evaluation or care at this time barring some unforeseen urgent/emergent event. He will also received PRBCs which may benefit his oxygen carrying capacity and his cardiovascular status. 2. Hypertension The patient has a history of hypertension. He states it is been well controlled. His blood pressure will need to be followed. 3. Chronic renal insufficiency Patient has a history of chronic renal insufficiency. This may impact medical therapy and evaluation and care-especially if the patient required IV contrast mediated studies. 4. GI bleed There is concern based upon patient's symptoms and findings that he may have an underlying GI bleed. It is possible this could be an upper GI bleed secondary to his nonsteroidal anti-inflammatory use. 5. Anemia And the patient has anemia. This may be secondary to GI bleed. Based upon his symptoms, abnormal cardiac enzyme findings, etc. the patient is receiving PRBCs. Comment: The patient's case was discussed and reviewed with the patient, Dr. Kumar the [facility] staff, and Dr. Valdez of the [facility] emergency department staff. This note was generated with [employer] dictation software. It may contain incorrect words, spelling, and punctuation that were not noted in checking the note before signing.
[2018-03-28] MEDS: Metoprolol Tartrate 25 MG Tablet PO (22:22)
[2018-03-29] VITALS (21 sets, daily range): BP systolic 94–135; BP diastolic 49–75; PULSE 39–62; RESP 16–20; TEMP 36.4–37.6; O2SAT 91–95
--- NOTE | 2018-03-29 | IMM_PTH ---
PATIENT: HIRAM KRUEGER LOC: [facility] U#:[id number] AGE/SX: 82/M ROOM: [facility] RE03/28/[address]: Dr. Juan Das MD : [id number] BED: 1 DIS: 03/30/2018 SPEC #: [id number] RECD: 03/30/18 08:04 STATUS: YANG REMary #: [id number] ROSA: 03/29/18 00:[address]: Nola Rodgers DEPT: IMMUNOHISTOCHEMISTRY RECD BY: Anette Nix ENTERED: 03/30/18 08:04 SP TYPE: IMMUNO OTHR DR: MD Dr. Juan Galan MD Dr. Mark Elderbrock, MD Dr. Paul Moodispaw, MD Dr. Tamera Robotham, MD Tissues: Gastric mucous membrane Procedures: H Pylori (initial) Comments: @ Ordering doctor for H.PYLORI edited from to @ by FRANCISCO at 03/30/18 162 @ Submitting doctor edited from to @ by FRANCISCO at 03/30/18 1620 PHYSICIAN & [place] [id number] SPECIMEN INFORMATION: Tissue Source: A. Antral biopsy Clinical Info: Anemia, Melena Specimen Number: [id number] CPT code: 05551 METHODOLOGY: Deparaffinized sections of prefer/formalin-fixed tissue or PAP/DQ stained slides are incubated with monoclonal/polyclonal antibodies/oligonucleotide probes. Localization is made via biotin free immunoperoxidase method. Appropriate controls are performed and reacted as expected. Results on target cell population are indicated in the following table: RESULTS: ANTIBODY / CLONE RESULT H Pylori (polyclonal) negative These tests were developed and their performance characteristics determined by [facility]. They may not have been cleared or approved by the U.S. Food and Drug Administration. The FDA has determined that such clearance or approval is not necessary. INTERPRETATION: Antral biopsy: Negative for Helicobacter pylori. AM:librado 03/30/18
--- NOTE | 2018-03-29 01:53 | NURSING ---
Vitals that were documented at 0044 were done at 0144. Blood tubing flushing with normal saline now.
[2018-03-29 05:42] LABS: Hematocrit 27.1 % (40-54); Hemoglobin 8.7 g/dl (13.0-16.5); Mean Corp Hgb Conc 32.1 g/gl (32-36); Mean Corpuscular Hgb 31.8 pg (27.0-32.0); Mean Corpuscular Volume 98.9 fL (80-94); Platelet Count 176 K/mm3 (150-450); RBC Distribution Width CV 16.6 % (11.6-14.6); RBC Distribution Width SD 57.1 fl (35.1-43.9); Red Blood Count 2.74 M/mm3 (4.6-6.2); White Blood Count 9.1 K/mm3 (4.4-11.0)
[2018-03-29 05:44] LABS: Differential Indicated MANUAL DIFF; POSITIVE COUNT YES; POSITIVE DIFFERENTIAL NO; POSITIVE MORPHOLOGY YES
[2018-03-29 05:49] LABS: AST(SGOT) 23 U/L (15-37); Alanine Aminotransfer ALT/SGPT 17 U/L (16-61); Albumin, Serum 2.7 g/dL (3.2-5.0); Alkaline Phosphatase 40 U/L (45-117); Anion Gap 8 (5-15); BUN 44 mg/dL (7-18); BUN/Creat Ratio 27.5 RATIO (10-20); Bilirubin, Direct 0.12 mg/dL (0.00-0.30); Calcium,Total 8.2 mg/dL (8.5-10.1); Chloride 115 mmol/L (98-107); Cholesterol 203 mg/dL (200); EST Glomerular Filtration Rate 44 mL/min (>60); Est Glom Filt Rate - Afr Amer 54 mL/min (>60); Globulin 2.9 g/dL (2.2-4.2); Glucose 99 mg/dL (74-106); High Density Lipoprotein 31 mg/dL; Potassium 4.6 mmol/L (3.5-5.1); Protein, Total 5.6 g/dL (6.4-8.2); Sodium Level 143 mmol/L (136-145); Triglycerides 127 mg/dL; Very Low Density Lipoprotein 25 mg/dL (5-40)
--- NOTE | 2018-03-29 05:55 | EKG12_ITS ---
Test Reason : Blood Pressure : / mmHG Vent. Rate : 047 BPM Atrial Rate : 047 BPM P-R Int : 244 ms QRS Dur : 100 ms QT Int : 492 ms P-R-T Axes : 046 -29 017 degrees QTc Int : 435 ms Sinus bradycardia with 1st degree A-V block Otherwise normal ECG When compared with ECG of 28-MAR-2018 16:22, MANUAL COMPARISON REQUIRED, DATA IS UNCONFIRMED Confirmed by STEVE PEOPLES, MINOR ([id number]), makeup editor ALEX LUCIO ([id number]) on 04/03/2018 2:04:59 PM Referred By: Confirmed By:MINOR WILSON MD
--- NOTE | 2018-03-29 06:09 | NURSING ---
Report called to Rere in endoscopy at this time
[2018-03-29 06:29] LABS: Eosinophil 2 % (0-5); Lymphocyte 14 % (19-41); Monocyte 2 % (0-10); Neutrophil-Band 1 % (0-5); Neutrophil-Segmented 81 % (47-70); Platelet Estimate ADEQUATE (ADEQ); Red Cell Morphology NORM C+C NORMAL (NORM C&C); Total Cells Counted 100 (MANUAL DIFF)
[2018-03-29 06:30] LABS: Absolute Lymphocyte Count 1.27 X10^3/ul (0.83-4.51); Absolute Neutrophil Count 7.5 X10^3/uL (2.0-7.7); Lymphocyte # 1.27 X10^3/ul (4.0); Neutrophil # 7.46 X10^3/uL (2.7-7.7)
--- NOTE | 2018-03-29 07:30 | GASB_PTH ---
PATIENT: HIRAM KRUEGER LOC: [facility] U#:[id number] AGE/SX: 82/M ROOM: [facility] RE03/28/[address]: Dr. Juan Das MD : 1935 BED: 1 DIS: 03/30/2018 SPEC #: [id number] RECD: 03/29/18 11:33 STATUS: YANG REMary #: [id number] ROSA: 03/29/18 07:[address]: Nola Rodgers DEPT: SURGICAL PATHOLOGY RECD BY: Marlon Goldberg ENTERED: 03/29/18 12:51 SP TYPE: Gastric Bx OTHR DR: MD Dr. Juan Galan MD Dr. Mark Elderbrock, MD Dr. Paul Moodispaw, MD Dr. Tamera Robotham, MD Tissues: A - Gastric mucous membrane B - Stomach, NOS C - Gastric mucous membrane Procedures: Surgery Specimen Level IV Comments: @ Ordering doctor for SUNAMRATA edited from to @ by FRANCISCO at 03/30/181620 @ Submitting doctor edited from to @ by FRANCISCO at 03/30/181620 HEADER O[place] [place] DIAGNOSIS: Anemia, melena TISSUE SUBMITTED: A. Antral biopsy for H. Pylori, B. Body of the stomach biopsy, C. GE junction biopsy MICROSCOPIC DIAGNOSIS A. Gastric antrum, biopsy: Minimal chronic inflammation. B. Gastric body, biopsy: Minimal chronic inflammation. C. 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 No evidence of dysplasia. Mild chronic inflammation. AM:vibha 03/30/18 COMMENT The results of immunohistochemistry for Helicobacter pylori will be reported separately ([id number]). C. Alcian blue/PAS stain with matched control supports the above diagnosis. MICROSCOPIC DESCRIPTION Slides are reviewed. GROSS DESCRIPTION A. Received is one container labeled with the patient name and designated antral biopsy. The specimen consists of one irregular fragment of light evans soft tissue that measures 0.4 x 0.2 x 0.1 cm. The specimen is totally submitted in one cassette. B. Received is one container labeled with the patient name and designated body of the stomach biopsy. The specimen consists of one irregular fragment of light evans soft tissue that measures 0.5 x 0.2 x 0.1 cm. The specimen is totally submitted in one cassette. C. Received is one container labeled with the patient name and designated GE junction biopsy. The specimen consists of two irregular fragments of light evans soft tissue that in aggregate measure 0.4 x 0.2 x 0.1 cm. The specimen is totally submitted in one cassette. / SJ:sp 03/29/18 TC: 3 CPT: 83346x1, 30304d2
--- NOTE | 2018-03-29 07:58 | OP.ENDO_ITS ---
Patient Name: Nirmal Plaza Procedure Date: 03/29/2018 7:16 AM Date of : 1935 Age: 82 Procedure: Upper GI endoscopy Indications: Iron deficiency anemia due to suspected upper gastrointestinal bleeding, Melena Providers: Nola Rodgers MD Medicines: Monitored Anesthesia Care Patient Profile: This is an 82 year old male. Complications: No immediate complications. Procedure: Pre-Anesthesia Assessment: - Prior to the procedure, a History and Physical was performed, and patient medications and allergies were reviewed. The patient's tolerance of previous anesthesia was also reviewed. The risks and benefits of the procedure and the sedation options and risks were discussed with the patient. All questions were answered, and informed consent was obtained. Prior Anticoagulants: The patient has taken aspirin, last dose was 1 day prior to procedure. ASA Grade Assessment: II - A patient with mild systemic disease. After reviewing the risks and benefits, the patient was deemed in satisfactory condition to undergo the procedure. After obtaining informed consent, the endoscope was passed under direct vision. Throughout the procedure, the patient's blood pressure, pulse, and oxygen saturations were monitored continuously. The gastroscope was introduced through the mouth, and advanced to the second part of duodenum. The upper GI endoscopy was accomplished without difficulty. The patient tolerated the procedure well. Scope In: 7:40:06 AM Scope Out: 7:46:28 AM Total Procedure Duration Time 0 hours 6 minutes 22 seconds Findings: Multiple localized, diminutive non-bleeding erosions were found in the gastric body. There were no stigmata of recent bleeding. Biopsies were taken with a cold forceps for histology. Minimal inflammation characterized by erythema was found in the gastric antrum. Biopsies were taken with a cold forceps for Helicobacter pylori testing. Segmental mucosal changes characterized by erythema were found at the gastroesophageal junction. Biopsies were taken with a cold forceps for histology. The first portion of the duodenum and second portion of the duodenum were normal. No gross lesions were noted in the esophagus. Impression: - Non-bleeding erosive gastropathy. Biopsied. - Gastritis. Biopsied. - Erythematous mucosa in the gastroesophageal junction. Biopsied. - Normal first portion of the duodenum and second portion of the duodenum. - No gross lesions in esophagus. Recommendation: - Await pathology results. - [facility]. - Use sucralfate tablets 1 gram PO BID. -D/C with protonix 40 mg PO daily - Continue present medications. - No aspirin, ibuprofen, naproxen, or other non-steroidal anti-inflammatory drugs. Procedure Code(s): --- Professional --- 73099, Esophagogastroduodenoscopy, flexible, transoral; with biopsy, single or multiple Diagnosis Code(s): --- Professional --- K31.89, Other diseases of stomach and duodenum K29.70, Gastritis, unspecified, without bleeding D50.9, Iron deficiency anemia, unspecified K92.1, Melena (includes Hematochezia) CPT copyright 2017 [employer]. All rights reserved. The codes documented in this report are preliminary and upon inpatient coder review may be revised to meet current compliance requirements. MD Nola Junior MD 03/29/2018 7:57:48 AM This report has been signed electronically. Number of Addenda: 0 Note Initiated On: 03/29/2018 7:16 AM
[2018-03-29] MEDS: Multivitamins,Therapeutic Tablet 1 TABLET PO (09:56)
[2018-03-29] MEDS: Allopurinol 300 MG Tablet PO (09:56)
[2018-03-29] MEDS: Losartan Potassium 50 MG Tablet PO (09:56)
[2018-03-29] MEDS: Sucralfate 1 GM Tablet PO ×3 (09:56→22:26)
--- NOTE | 2018-03-29 11:29 | CASEMGMT ---
LÓPEZ BLACKWELL assessment: Face to Face with patient for initial transition planning/care coordination assessment. LÓPEZ BLACKWELL introduced self and role at [facility], pt voices understanding and consents to assessment at this time. Pt is sitting up in bed in no distress at this time. Pt is A/Ox4 at this time and answers all questions appropriately at this time. Care providers, pharmacy, and demographics verified/updated at this time. PCP: L[facility] Specialists: Pt states no current specialists. [facility]erred [facility]acy[facility] Insurance: [facility] A/B, [place] Prescription Benefit: MCR D Living Will/HPOA: Pt states has LW/HPOA and states , Clarissa Plaza, is HPOA. AD are not on file at [facility] at this time. LNOK: Clarissa Plaza, Living Arrangements: Pt states lives with in 1 story home and states no concerns at home at this time. Transportation: Pt states drives self and states no transportation concerns at this time. DME/HHC: Pt states does not have any current DME or need for any at this time. Pt states no hx of HHC or SNF in the past. 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 Pt states does not smoke or drink ETOH. Pt states no further concerns/needs at this time. CM to follow for any further discharge planning/needs. Advised pt to ask for CM if any further questions/concerns/needs arise, voices understanding. Plan: [place] L[place]PEZ BLACKWELL
--- NOTE | 2018-03-29 11:29 | PCM.PN.CARD ---
Subjectve: The patient states his chest discomfort is better. He appears comfortable lying supine. He has had no other acute symptoms that he admits to at this time. Objective: Vital Signs Temp Pulse Resp BP Pulse Ox 97.7 F L 58 L 18 118/54 L 95 03/29/18 09:44 03/29/18 10:59 03/29/18 09:44 03/29/18 09:44 03/29/18 09:44 Oxygen Delivery Method Room Air Weight: 308 lb 10.354 oz Body Mass Index (BMI) 39.2 Finger Stick Blood Glucose 119 Intake and Output for Last 24 Hours 03/27/18 03/28/18 03/29/18 23:59 23:59 23:59 Intake Total 713 / 713 2488.6 / 2488.6 Output Total 850 / 850 Balance 713 / 713 1638.6 / 1638.6 General: Awake, Alert, Oriented x 3, Cooperative, No Acute Distress, Obese HEENT: Atraumatic, Normocephalic, PERRL, EOMI, Sclera Non Icteric Neck: Supple, Good ROM, No JVD Lungs: Clear to auscultation Cardiovascular: Regular Rhythm, Normal S1, Normal S2 Murmur Murmur: Grade 2/6, Harsh, Mid Systolic, LLSB, [place] Vascular: No Carotid Bruits Abdomen: Bowel Sounds Present, Soft, Non Tender, Obese Extremities: No Cyanosis, No Clubbing, No edema Neurological: No Focal Motor or Sensory Deficit Psych/Mental Status: Appropriate, Normal Affect 03/28/18 13:50: WBC 13.4 H, RBC 2.38 L, Hgb 7.6 L, Hct 24.3 L, MCV 102.1 H, MCH 31.9, MCHC 31.3 L, RDW 16.1 H, RDW Differential 57.4 H, Plt Count 206, MPV 9.8, Neut % (Auto) Not Reportable, Absolute Neuts (auto) 10.7 H, Total Counted 100, Neutrophils % (Manual) 74 H, Band Neutrophils % 1, Lymphocytes % (Manual) 13 L, Monocytes % (Manual) 9, Eosinophils % (Manual) 2, Metamyelocytes % 1 03/28/18 13:50: Sodium 141, Potassium 4.5, Chloride 113 H, Carbon Dioxide 19.0 L, Anion Gap 9, BUN 54 H, Creatinine 1.70 H, Est GFR (MDRD) Af Amer 50 L, Est GFR (MDRD) Non-Af 41 L, BUN/Creatinine Ratio 31.8 H, Glucose 134 H, Calcium 8.4 L, Troponin I 1.210 H* 03/28/18 16:38: Troponin I 1.180 H* 03/28/18 19:35: Troponin I 1.110 H* 03/29/18 04:55: WBC 9.1, RBC 2.74 L, Hgb 8.7 L, Hct 27.1 L, MCV 98.9 H, MCH 31.8, MCHC 32.1, RDW 16.6 H, RDW Differential 57.1 H, Plt Count 176, MPV 10.0, Neut % (Auto) Not Reportable, Absolute Neuts (auto) 7.5, Total Counted 100, Neutrophils % (Manual) 81 H, Band Neutrophils % 1, Lymphocytes % (Manual) 14 L, Monocytes % (Manual) 2, Eosinophils % (Manual) 2 03/29/18 04:55: Sodium 143, Potassium 4.6, Chloride 115 H, Carbon Dioxide 20.0 L, Anion Gap 8, BUN 44 H, Creatinine 1.60 H, Est GFR (MDRD) Af Amer 54 L, Est GFR (MDRD) Non-Af 44 L, BUN/Creatinine Ratio 27.5 H, Glucose 99, Calcium 8.2 L, Total Bilirubin 0.30, Direct Bilirubin 0.12, Triglycerides 127, Cholesterol 203 H, LDL Cholesterol 147 H, VLDL Cholesterol 25, HDL Cholesterol 31 L Rhythm: Sinus rhythm EKG: Sinus rhythm; no acute ECG changes ECHO: Pending Medical Necessity - Tobacco Use Smoking Status: Former smoker Tobacco Use: Non-smoker Assessment/Plan 1. Non-ST segment elevation [place] The patient has chest discomfort. He has had abnormal troponin I levels. He has had no acute ECG changes. This is also in the setting of her recent influenza A vaccine as well as subsequent findings of anemia. The patient's chest discomfort has a positional component which may suggest a possible underlying pericarditis. At the same time the patient does need to be monitored for any obvious evidence of an acute coronary syndrome. However his cardiac enzymes, if not thought related to some underlying mild pericardial disease process, may be secondary to a type II event brought on by supply demand mismatch and myocardial ischemia secondary to his anemia. Thus at the present time he will continue to be monitored with cardiac telemetry monitoring, enzyme follow-up, and ECG follow-up. An echocardiogram to further evaluate his left ventricular wall motion and systolic function as well as his pericardial space is pending. In the interim he will be treated medically as able. Ideally this would include agents such as aspirin in addition to nitrates as needed, beta-blockers, lipid-lowering agents, etc. However there is concern using agents such as aspirin and/or antiplatelet agents and her anticoagulants at this time secondary to concern of a GI bleed and subsequent anemia requiring PRBCs. Thus this would make it difficult to proceed with any invasive evaluation or care at this time barring some unforeseen urgent/emergent event. He has received PRBCs. His hemoglobin has improved, however, it has not normalized. 2. Hypertension The patient has a history of hypertension. He states it is been well controlled. His blood pressure will need to be followed. 3. Chronic renal insufficiency Patient has a history of chronic renal insufficiency. This may impact medical therapy and evaluation and care-especially if the patient required IV contrast mediated studies. 4. GI bleed He did undergo EGD earlier this day. There were areas of erosions without active bleeding. At the present time an attempt is being made to avoid antiplatelet therapy/nonsteroidal anti-inflammatory therapy. 5. Anemia Again his anemia is concerning for an upper GI bleed. He has received PRBCs. His hemoglobin has improved but has not yet normalized. Comment: The patient's case was discussed and reviewed with the [facility] hospitalist staff. This note was generated with [employer] dictation software. It may contain incorrect words, spelling, and punctuation that were not noted in checking the note before signing.
--- NOTE | 2018-03-29 11:34 | PN.CARD_ITS ---
Subjectve: The patient states his chest discomfort is better. He appears comfortable lying supine. He has had no other acute symptoms that he admits to at this time. Objective: Vital Signs Temp Pulse Resp BP Pulse Ox 97.7 F L 58 L 18 118/54 L 95 03/29/18 09:44 03/29/18 10:59 03/29/18 09:44 03/29/18 09:44 03/29/18 09:44 Oxygen Delivery Method Room Air Weight: 308 lb 10.354 oz Body Mass Index (BMI) 39.2 Finger Stick Blood Glucose 119 Intake and Output for Last 24 Hours 03/27/18 03/28/18 03/29/18 23:59 23:59 23:59 Intake Total 713 / 713 2488.6 / 2488.6 Output Total 850 / 850 Balance 713 / 713 1638.6 / 1638.6 General: Awake, Alert, Oriented x 3, Cooperative, No Acute Distress, Obese HEENT: Atraumatic, Normocephalic, PERRL, EOMI, Sclera Non Icteric Neck: Supple, Good ROM, No JVD Lungs: Clear to auscultation Cardiovascular: Regular Rhythm, Normal S1, Normal S2 Murmur Murmur: Grade 2/6, Harsh, Mid Systolic, LLSB, [place] Vascular: No Carotid Bruits Abdomen: Bowel Sounds Present, Soft, Non Tender, Obese Extremities: No Cyanosis, No Clubbing, No edema Neurological: No Focal Motor or Sensory Deficit Psych/Mental Status: Appropriate, Normal Affect 03/28/18 13:50: WBC 13.4 H, RBC 2.38 L, Hgb 7.6 L, Hct 24.3 L, MCV 102.1 H, MCH 31.9, MCHC 31.3 L, RDW 16.1 H, RDW Differential 57.4 H, Plt Count 206, MPV 9.8, Neut % (Auto) Not Reportable, Absolute Neuts (auto) 10.7 H, Total Counted 100, Neutrophils % (Manual) 74 H, Band Neutrophils % 1, Lymphocytes % (Manual) 13 L, Monocytes % (Manual) 9, Eosinophils % (Manual) 2, Metamyelocytes % 1 03/28/18 13:50: Sodium 141, Potassium 4.5, Chloride 113 H, Carbon Dioxide 19.0 L , Anion Gap 9, BUN 54 H, Creatinine 1.70 H, Est GFR (MDRD) Af Amer 50 L, Est GFR (MDRD) Non-Af 41 L, BUN/Creatinine Ratio 31.8 H, Glucose 134 H, Calcium 8.4 L, Troponin I 1.210 H* 03/28/18 16:38: Troponin I 1.180 H* 03/28/18 19:35: Troponin I 1.110 H* 03/29/18 04:55: WBC 9.1, RBC 2.74 L, Hgb 8.7 L, Hct 27.1 L, MCV 98.9 H, MCH 31.8, MCHC 32.1, RDW 16.6 H, RDW Differential 57.1 H, Plt Count 176, MPV 10.0, Neut % (Auto) Not Reportable, Absolute Neuts (auto) 7.5, Total Counted 100, Neutrophils % (Manual) 81 H, Band Neutrophils % 1, Lymphocytes % (Manual) 14 L, Monocytes % (Manual) 2, Eosinophils % (Manual) 2 03/29/18 04:55: Sodium 143, Potassium 4.6, Chloride 115 H, Carbon Dioxide 20.0 L , Anion Gap 8, BUN 44 H, Creatinine 1.60 H, Est GFR (MDRD) Af Amer 54 L, Est GFR (MDRD) Non-Af 44 L, BUN/Creatinine Ratio 27.5 H, Glucose 99, Calcium 8.2 L, Total Bilirubin 0.30, Direct Bilirubin 0.12, Triglycerides 127, Cholesterol 203 H, LDL Cholesterol 147 H, VLDL Cholesterol 25, HDL Cholesterol 31 L Rhythm: Sinus rhythm EKG: Sinus rhythm; no acute ECG changes ECHO: Pending Medical Necessity - Tobacco Use Smoking Status: Former smoker Tobacco Use: Non-smoker Assessment/Plan 1. Non-ST segment elevation [place] The patient has chest discomfort. He has had abnormal troponin I levels. He has had no acute ECG changes. This is also in the setting of her recent influenza A vaccine as well as subsequent findings of anemia. The patient's chest discomfort has a positional component which may suggest a possible underlying pericarditis. At the same time the patient does need to be monitored for any obvious evidence of an acute coronary syndrome. However his cardiac enzymes, if not thought related to some underlying mild pericardial disease process, may be secondary to a type II event brought on by supply demand mismatch and myocardial ischemia secondary to his anemia. Thus at the present time he will continue to be monitored with cardiac telemetry monitoring, enzyme follow-up, and ECG follow-up. An echocardiogram to further evaluate his left ventricular wall motion and systolic function as well as his pericardial space is pending. In the interim he will be treated medically as able. Ideally this would include agents such as aspirin in addition to nitrates as needed, beta-blockers, lipid- lowering agents, etc. However there is concern using agents such as aspirin and/or antiplatelet agents and her anticoagulants at this time secondary to concern of a GI bleed and subsequent anemia requiring PRBCs. Thus this would make it difficult to proceed with any invasive evaluation or care at this time barring some unforeseen urgent/emergent event. He has received PRBCs. His hemoglobin has improved, however, it has not normalized. 2. Hypertension The patient has a history of hypertension. He states it is been well controlled. His blood pressure will need to be followed. 3. Chronic renal insufficiency Patient has a history of chronic renal insufficiency. This may impact medical therapy and evaluation and care-especially if the patient required IV contrast mediated studies. 4. GI bleed He did undergo EGD earlier this day. There were areas of erosions without active bleeding. At the present time an attempt is being made to avoid antiplatelet therapy/nonsteroidal anti-inflammatory therapy. 5. Anemia Again his anemia is concerning for an upper GI bleed. He has received PRBCs. His hemoglobin has improved but has not yet normalized. Comment: The patient's case was discussed and reviewed with the [facility] hospitalist staff. This note was generated with [employer] dictation software. It may contain incorrect words, spelling, and punctuation that were not noted in checking the note before signing.
--- NOTE | 2018-03-29 13:09 | PCM.PROGNOTE ---
<Katarzyna Falcon - Last Filed: 03/29/18 13:29> Patient Problems: Active and Suspected Problems GI bleed (Acute) NSTEMI (non-ST elevated myocardial infarction) (Acute) Subjective: Patient seen and examined. Denies further chest pain. Underwent EGD this morning which showed nonbleeding erosive gastropathy. Denies dizziness, lightheadedness. Denies shortness of breath. No current complaints. Wishes to return home as soon as possible. - Physical Exam General: Alert, Oriented x3, Cooperative, No apparent distress HEENT: Atraumatic, PERRLA, EOMI, Normocephalic Oral: Moist Mucosa Neck: Supple, No JVD, Negative Carotid Bruits Lungs: Clear to auscultation, Diminished Cardiovascular: Regular Rhythm, Normal S1, Normal S2, No murmurs, Bradycardic Abdomen: Bowel Sounds Present, Soft, Non Tender, Non-Distended, Obese Extremities: No clubbing, No cyanosis, No edema, Capillary Refill Less than 3 Seconds Skin: No rashes, No breakdown Musculoskeletal: No Tenderness to Palpation of Joints or Extremities Neurological: Cranial nerves II-XII grossly intact, Neuro grossly intact Psych/Mental Status: Normal Affect, Appropriate Vital Signs Temp Pulse Resp BP Pulse Ox 97.7 F L 58 L 18 118/54 L 95 03/29/18 09:44 03/29/18 10:59 03/29/18 09:44 03/29/18 09:44 03/29/18 09:44 Oxygen Delivery Method Room Air Weight: 308 lb 10.354 oz Body Mass Index (BMI) 39.2 Finger Stick Blood Glucose 119 Intake and Output for Last 24 Hours 03/27/18 03/28/18 03/29/18 23:59 23:59 23:59 Intake Total 713 / 713 3166.6 / 3166.6 Output Total 1200 / 1200 Balance 713 / 713 1966.6 / 1966.6 Laboratory Tests Past 24 Hrs 03/28/18 03/28/18 03/28/18 13:50 13:50 15:00 WBC 13.4 H RBC 2.38 L Hgb 7.6 L Hct 24.3 L MCV 102.1 H MCH 31.9 MCHC 31.3 L RDW 16.1 H RDW Differential 57.4 H Plt Count 206 MPV 9.8 Neut % (Auto) Not Reportable Absolute Neuts (auto) 10.7 H Absolute Lymphs (auto) 1.74 Total Counted 100 Neutrophils % (Manual) 74 H Band Neutrophils % 1 Lymphocytes % (Manual) 13 L Monocytes % (Manual) 9 Eosinophils % (Manual) 2 Metamyelocytes % 1 Diff Path Review May foll Platelet Estimate ADEQUATE RBC Morphology Polychromasia RARE Hypochromasia 2+ ESR 24 H Sodium 141 Potassium 4.5 Chloride 113 H Carbon Dioxide 19.0 L Anion Gap 9 BUN 54 H Creatinine 1.70 H Estim Creat Clear Calc 39.62 Est GFR (MDRD) Af Amer 50 L Est GFR (MDRD) Non-Af 41 L BUN/Creatinine Ratio 31.8 H Glucose 134 H Calcium 8.4 L Total Bilirubin Direct Bilirubin AST ALT Alkaline Phosphatase Troponin I 1.210 H* Total Protein Albumin Globulin Triglycerides Cholesterol LDL Cholesterol VLDL Cholesterol HDL Cholesterol Blood Type A POSITIVE Antibody Screen NEGATIVE Crossmatch See Detail 03/28/18 03/28/18 03/29/18 16:38 19:35 04:55 WBC 9.1 RBC 2.74 L Hgb 8.7 L Hct 27.1 L MCV 98.9 H MCH 31.8 MCHC 32.1 RDW 16.6 H RDW Differential 57.1 H Plt Count 176 MPV 10.0 Neut % (Auto) Not Reportable Absolute Neuts (auto) 7.5 Absolute Lymphs (auto) 1.27 Total Counted 100 Neutrophils % (Manual) 81 H Band Neutrophils % 1 Lymphocytes % (Manual) 14 L Monocytes % (Manual) 2 Eosinophils % (Manual) 2 Metamyelocytes % Diff Path Review May foll Platelet Estimate ADEQUATE RBC Morphology NORM C+C Polychromasia Hypochromasia ESR Sodium Potassium Chloride Carbon Dioxide Anion Gap BUN Creatinine Estim Creat Clear Calc Est GFR (MDRD) Af Amer Est GFR (MDRD) Non-Af BUN/Creatinine Ratio Glucose Calcium Total Bilirubin Direct Bilirubin AST ALT Alkaline Phosphatase Troponin I 1.180 H* 1.110 H* Total Protein Albumin Globulin Triglycerides Cholesterol LDL Cholesterol VLDL Cholesterol HDL Cholesterol Blood Type Antibody Screen Crossmatch 03/29/18 04:55 WBC RBC Hgb Hct MCV MCH MCHC RDW RDW Differential Plt Count MPV Neut % (Auto) Absolute Neuts (auto) Absolute Lymphs (auto) Total Counted Neutrophils % (Manual) Band Neutrophils % Lymphocytes % (Manual) Monocytes % (Manual) Eosinophils % (Manual) Metamyelocytes % Diff Path Review Platelet Estimate RBC Morphology Polychromasia Hypochromasia ESR Sodium 143 Potassium 4.6 Chloride 115 H Carbon Dioxide 20.0 L Anion Gap 8 BUN 44 H Creatinine 1.60 H Estim Creat Clear Calc 42.10 Est GFR (MDRD) Af Amer 54 L Est GFR (MDRD) Non-Af 44 L BUN/Creatinine Ratio 27.5 H Glucose 99 Calcium 8.2 L Total Bilirubin 0.30 Direct Bilirubin 0.12 AST 23 ALT 17 Alkaline Phosphatase 40 L Troponin I Total Protein 5.6 L Albumin 2.7 L Globulin 2.9 Triglycerides 127 Cholesterol 203 H LDL Cholesterol 147 H VLDL Cholesterol 25 HDL Cholesterol 31 L Blood Type Antibody Screen Crossmatch Medical Necessity - Tobacco Use Smoking Status: Former smoker Tobacco Use: Non-smoker Assessment/Plan All Active Problems GI bleed (Acute) NSTEMI (non-ST elevated myocardial infarction) (Acute) Macrocytic anemia (Acute) Hyperkalemia (Acute) Sepsis (Acute) Cellulitis (Acute) 1. NSTEMI-cardiology following. No EKG changes. Echocardiogram shows an EF of 60%, mild aortic valve stenosis, RVSP estimated to be 50 mmHg. No evidence of diastolic dysfunction. Begin statin. Started on metoprolol. Plan for stress test in a.m. NSTEMI possibly demand ischemia due to acute anemia, however rule out coronary disease. 2. Acute anemia suspected due to upper GI bleed-hemoglobin from PCP in 04.22. Hemoglobin on admission 7.6. Status post 2 units PRBC. Obtain iron studies. General surgery on consult. Patient underwent EGD which showed nonbleeding erosive gastropathy. Gastritis. Erythematous mucosa in the gastroesophageal junction. No gross lesions in esophagus. Biopsies sent for pathology. Surgery recommending sucralfate 1 g p.o. twice daily. Continue IV Protonix with plans for discharge on Protonix 40 mg p.o. daily. Although EGD showed no active bleed, suspect prior GI bleed from erosive gastritis given significant decline in hemoglobin compared to prior lab work. Patient instructed to discontinue aspirin, ibuprofen or other NSAIDS. Patient prior using daily NSAIDs for chronic back pain. Trend CBC. 3. Chronic kidney disease stage III-at baseline, trend BMP. 4. Hypertension-stable, continue losartan. 5. Chronic back pain-discussed with patient discontinuing NSAIDs. As needed Tylenol. Further pain management discussion with primary care physician. 6. Hypothyroidism-continue Synthroid regimen. 7. Gout-continue allopurinol regimen. 8. Morbid obesity-encourage diet and lifestyle modifications. Nutrition consult. DVT prophylaxis-SCDs. Pharmacologic prophylaxis contraindicated due to #2. This patient was seen by TATUM Fofana under the supervision of Dr. Das. <Juan Das E - Last Filed: 03/29/18 13:42> - Physical Exam Vital Signs Temp Pulse Resp BP Pulse Ox 97.7 F L 58 L 18 118/54 L 95 03/29/18 09:44 03/29/18 10:59 03/29/18 09:44 03/29/18 09:44 03/29/18 09:44 Oxygen Delivery Method Room Air Weight: 308 lb 10.354 oz Body Mass Index (BMI) 39.2 Finger Stick Blood Glucose 119 Intake and Output for Last 24 Hours 03/27/18 03/28/18 03/29/18 23:59 23:59 23:59 Intake Total 713 / 713 3166.6 / 3166.6 Output Total 1200 / 1200 Balance 713 / 713 1966.6 / 1966.6 Laboratory Tests Past 24 Hrs 03/28/18 03/28/18 03/28/18 13:50 13:50 15:00 WBC 13.4 H RBC 2.38 L Hgb 7.6 L Hct 24.3 L MCV 102.1 H MCH 31.9 MCHC 31.3 L RDW 16.1 H RDW Differential 57.4 H Plt Count 206 MPV 9.8 Neut % (Auto) Not Reportable Absolute Neuts (auto) 10.7 H Absolute Lymphs (auto) 1.74 Total Counted 100 Neutrophils % (Manual) 74 H Band Neutrophils % 1 Lymphocytes % (Manual) 13 L Monocytes % (Manual) 9 Eosinophils % (Manual) 2 Metamyelocytes % 1 Diff Path Review May foll Platelet Estimate ADEQUATE RBC Morphology Polychromasia RARE Hypochromasia 2+ ESR 24 H Sodium 141 Potassium 4.5 Chloride 113 H Carbon Dioxide 19.0 L Anion Gap 9 BUN 54 H Creatinine 1.70 H Estim Creat Clear Calc 39.62 Est GFR (MDRD) Af Amer 50 L Est GFR (MDRD) Non-Af 41 L BUN/Creatinine Ratio 31.8 H Glucose 134 H Calcium 8.4 L Total Bilirubin Direct Bilirubin AST ALT Alkaline Phosphatase Troponin I 1.210 H* Total Protein Albumin Globulin Triglycerides Cholesterol LDL Cholesterol VLDL Cholesterol HDL Cholesterol Blood Type A POSITIVE Antibody Screen NEGATIVE Crossmatch See Detail 03/28/18 03/28/18 03/29/18 16:38 19:35 04:55 WBC 9.1 RBC 2.74 L Hgb 8.7 L Hct 27.1 L MCV 98.9 H MCH 31.8 MCHC 32.1 RDW 16.6 H RDW Differential 57.1 H Plt Count 176 MPV 10.0 Neut % (Auto) Not Reportable Absolute Neuts (auto) 7.5 Absolute Lymphs (auto) 1.27 Total Counted 100 Neutrophils % (Manual) 81 H Band Neutrophils % 1 Lymphocytes % (Manual) 14 L Monocytes % (Manual) 2 Eosinophils % (Manual) 2 Metamyelocytes % Diff Path Review May foll Platelet Estimate ADEQUATE RBC Morphology NORM C+C Polychromasia Hypochromasia ESR Sodium Potassium Chloride Carbon Dioxide Anion Gap BUN Creatinine Estim Creat Clear Calc Est GFR (MDRD) Af Amer Est GFR (MDRD) Non-Af BUN/Creatinine Ratio Glucose Calcium Total Bilirubin Direct Bilirubin AST ALT Alkaline Phosphatase Troponin I 1.180 H* 1.110 H* Total Protein Albumin Globulin Triglycerides Cholesterol LDL Cholesterol VLDL Cholesterol HDL Cholesterol Blood Type Antibody Screen Crossmatch 03/29/18 04:55 WBC RBC Hgb Hct MCV MCH MCHC RDW RDW Differential Plt Count MPV Neut % (Auto) Absolute Neuts (auto) Absolute Lymphs (auto) Total Counted Neutrophils % (Manual) Band Neutrophils % Lymphocytes % (Manual) Monocytes % (Manual) Eosinophils % (Manual) Metamyelocytes % Diff Path Review Platelet Estimate RBC Morphology Polychromasia Hypochromasia ESR Sodium 143 Potassium 4.6 Chloride 115 H Carbon Dioxide 20.0 L Anion Gap 8 BUN 44 H Creatinine 1.60 H Estim Creat Clear Calc 42.10 Est GFR (MDRD) Af Amer 54 L Est GFR (MDRD) Non-Af 44 L BUN/Creatinine Ratio 27.5 H Glucose 99 Calcium 8.2 L Total Bilirubin 0.30 Direct Bilirubin 0.12 AST 23 ALT 17 Alkaline Phosphatase 40 L Troponin I Total Protein 5.6 L Albumin 2.7 L Globulin 2.9 Triglycerides 127 Cholesterol 203 H LDL Cholesterol 147 H VLDL Cholesterol 25 HDL Cholesterol 31 L Blood Type Antibody Screen Crossmatch Assessment/Plan Hospitalist note: I am seeing this patient in conjunction with Katarzyna Falcon. I independently seen and examined the patient. Progress note above, laboratory data and imaging studies reviewed and I concur with the above treatment and workup plan. Patient seen and examined. Reported mild abdominal discomfort after the upper EGD. Denied chest pain or shortness of breath. Denied nausea vomiting. Denies dizziness or lightheadedness. Apart from bradycardia, other vital signs are stable. - Physical Exam General: Alert, Oriented x3, Cooperative, No apparent distress. HEENT: Atraumatic, PERRLA, EOMI. Neck: Supple, No JVD, Negative Carotid Bruits, Trachea Midline, Thyroid Normal. Lungs: Clear to auscultation, Normal air movement, No rhonchi, No wheeze, No rales. Cardiovascular: Regular rate, Regular Rhythm, Normal S1, Normal S2, PMI Normal. Abdomen: Bowel Sounds Present, Soft, Non Tender, Non-Distended, No Hepato-splenomegaly. Extremities: No clubbing, No cyanosis, No edema Skin: No rashes, No breakdown Neurological: Neuro grossly intact Vital Signs are stable. Assessment and plan: #1 acute anemia: Attributed to possible upper GI bleed. Patient has been using Aleve and aspirin for arthritis for several months, high doses. Upper EGD revealed nonbleeding erosive gastropathy and gastritis. He received a total of 2 units of packed RBCs. Today's hemoglobin is 8.7 compensated. He is on IV Protonix drip. Iron studies are pending. Plan to continue same treatment, continue IV Protonix, transfuse if hemoglobin less than 8 g/dL. #2 acute non-ST elevation NE: Patient denies any more chest pain. EKG showed no acute ischemic changes. Troponin is elevated, trending down. 2D echocardiogram revealed normal ejection fraction. This could be due to demand ischemia secondary to anemia but underlying CAD cannot be ruled out. Cardiology on the case, recommended nuclear stress test tomorrow morning. He is on statins and beta-blockers as well as losartan. #3 other chronic medical problems: Stable, continue current medications. This note was generated with [employer] dictation software. It may contain incorrect words, spelling, and punctuation that were not noted in checking the note before signing. Code Visit Inpatient E&M: 47035 Subs Hosp L2
[2018-03-29 13:51] LABS: Ferritin 27 ng/mL (26-388); Iron 38 ug/dL (65-175); Iron Binding Capacity,Total 271 ug/dL (250-450)
--- NOTE | 2018-03-29 15:52 | CHAPLAIN ---
Type of Pastoral Visit _x__ Initial Visit ___ Follow-up Visit ___ On-call Visit ___ General Patient Visit ___ Spiritual Assessment ___ Family Conference ___ Bereavement ___ Rapid Response ___ Code Blue ___ Other (describe below) Pastoral Care Referral From _x__ Patient ___ Family ___ Nurse ___ Physician ___ Insurance Processor ___ Hassock Maker ___ Other (describe below) Sacrament/Intervention _x__ Active listening ___ Anointing ___ Restorationist ___ Bereavement ___ Communion _x__ Cristin exploration ___ _x__ Life review _x__ Prayer ___ Reconciliation ___ Sacrament of Sick ___ Supportive presence ___ Wedding ___ Other (describe below) Pastoral Comments
[2018-03-29] MEDS: Metoprolol Tartrate 25 MG Tablet 12.5 MG PO (22:26)
[2018-03-29] MEDS: Atorvastatin Calcium 40 MG Tablet PO (22:26)
[2018-03-29] MEDS: guaiFENesin 600 MG Tablet PO (22:27)
[2018-03-30] VITALS (8 sets, daily range): BP systolic 116–122; BP diastolic 57–70; PULSE 54–63; RESP 18; TEMP 36.8–37.3; O2SAT 94–97
[2018-03-30 05:52] LABS: Hematocrit 27.3 % (40-54); Hemoglobin 8.6 g/dl (13.0-16.5); Mean Corp Hgb Conc 31.5 g/gl (32-36); Mean Corpuscular Hgb 31.6 pg (27.0-32.0); Mean Corpuscular Volume 100.4 fL (80-94); Mean Platelet Vol. 9.8 fl (6.2-12.0); Platelet Count 166 K/mm3 (150-450); RBC Distribution Width CV 16.7 % (11.6-14.6); Red Blood Count 2.72 M/mm3 (4.6-6.2); White Blood Count 8.9 K/mm3 (4.4-11.0)
--- NOTE | 2018-03-30 05:55 | EKG12_ITS ---
Test Reason : AM EKG Blood Pressure : / mmHG Vent. Rate : 058 BPM Atrial Rate : 058 BPM P-R Int : 232 ms QRS Dur : 102 ms QT Int : 458 ms P-R-T Axes : 030 -37 029 degrees QTc Int : 449 ms Sinus bradycardia with 1st degree A-V block Left axis deviation Low voltage QRS Abnormal ECG No previous ECGs available Confirmed by STEVE PEOPLES, MINOR ([id number]), publishing editor ALEX LUCIO ([id number]) on 04/03/2018 1:46:47 PM Referred By: ADRIAN Confirmed By:MINOR WILSON MD
[2018-03-30 05:57] LABS: Anion Gap 9 (5-15); BUN 34 mg/dL (7-18); BUN/Creat Ratio 21.7 RATIO (10-20); Calcium,Total 8.5 mg/dL (8.5-10.1); Chloride 115 mmol/L (98-107); Creatinine, Serum 1.57 mg/dL (0.70-1.30); EST Glomerular Filtration Rate 45 mL/min (>60); Est Glom Filt Rate - Afr Amer 55 mL/min (>60); Glucose 104 mg/dL (74-106); Potassium 4.9 mmol/L (3.5-5.1); Sodium Level 143 mmol/L (136-145)
[2018-03-30 05:58] LABS: Differential Indicated MANUAL DIFF; POSITIVE COUNT YES; POSITIVE DIFFERENTIAL NO; POSITIVE MORPHOLOGY YES
[2018-03-30 06:15] LABS: International Normalized Ratio 1.2; Prothrombin Time (Protime)PT. 15.4 SECONDS (11.7-14.9)
[2018-03-30 06:16] LABS: Partial Thromboplast Time 29.2 Seconds (24.1-36.2)
[2018-03-30 06:34] LABS: Eosinophil 3 % (0-5); Lymphocyte 9 % (19-41); Metamyelocyte 1 % (0-1); Monocyte 4 % (0-10); Neutrophil-Band 1 % (0-5); Neutrophil-Segmented 81 % (47-70); Plasma Cell 1 %; Platelet Estimate ADEQUATE (ADEQ); Red Cell Morphology NORM C+C NORMAL (NORM C&C); Total Cells Counted 100 (MANUAL DIFF)
[2018-03-30 06:35] LABS: Absolute Neutrophil Count 7.2 X10^3/uL (2.0-7.7); Neutrophil # 7.23 X10^3/uL (2.7-7.7)
[2018-03-30] MEDS: Sucralfate 1 GM Tablet PO ×2 (06:50→11:16)
[2018-03-30] MEDS: Losartan Potassium 50 MG Tablet PO (06:50)
[2018-03-30] MEDS: Levothyroxine 125 MCG Tablet PO (06:50)
[2018-03-30 08:32] LABS: Pathologist Review Reviewed
[2018-03-30 08:51] LABS: Pathologist Review Reviewed
[2018-03-30] MEDS: Multivitamins,Therapeutic Tablet 1 TABLET PO (11:15)
[2018-03-30] MEDS: Metoprolol Tartrate 25 MG Tablet 12.5 MG PO (11:15)
[2018-03-30] MEDS: Allopurinol 300 MG Tablet PO (11:16)
[2018-03-30] MEDS: guaiFENesin 600 MG Tablet PO (11:17)
--- NOTE | 2018-03-30 11:30 | STRESSREP ---
Stress Test Report Date: 11/27/2017 Procedure: Pharmacologic stress nuclear imaging study Indications: Chest pain; abnormal cardiac enzymes; anemia secondary to GI bleed Consent: Per the patient Procedure: The patient underwent pharmacologic (Regadenoson) evaluation with a peak heart rate of 107 beats per minute (76 predicted maximal heart rate) and a peak blood pressure of 120/60 mmHg. The baseline ECG demonstrated sinus bradycardia; poor R wave progression. The peak pharmacologic ECG demonstrated no obvious ECG changes. There was a rare PVC during recovery. There was no complaint of chest discomfort during pharmacologic infusion or recovery. The examination was discontinued secondary to completion of protocol. Impression: 1. Pharmacologic (Regadenoson) evaluation 2. Peak pharmacologic ECG with no obvious ECG changes. 3. There was a rare PVC during recovery. 4. Nuclear images pending Myocardial perfusion imaging study: Technique: The patient was injected with 13.6 millicuries of technetium 99m Cardiolite and subsequently rest SPECT Cardiolite nuclear imaging was obtained in the horizontal long, vertical long, and short axis views. The patient underwent pharmacologic (Regadenoson) evaluation with a peak heart rate of 107 beats per minute (76 % percent predicted maximal heart rate) and a peak blood pressure of 120/60 mmHg. The patient was injected with 44.8 millicuries of technetium 99m Cardiolite and subsequently stress SPECT Cardiolite nuclear imaging was obtained in the horizontal long, vertical long, and short axis views. A gated Cardiolite study at peak stress was obtained. Interpretation: Rest and stress SPECT Cardiolite nuclear imaging status post realignment, normalization, re-attenuation correction, and used attenuation correction demonstrate the pre-attenuation correction images an area of diminished to absence of myocardial perfusion/tracer uptake in portions of the basal inferolateral segments which extend toward the mid inferolateral segments which appear to be somewhat more prominent following stress as opposed to rest as well as post-stress demonstrating extension of this area into the distal inferolateral segments. This post attenuation correction there is subtle diminished tracer uptake in the mid to distal lateral and lateral apical segments which appear to be either somewhat more prominent at rest as opposed to stress or without significant change between rest and stress. There are similar type changes on the resting and stress polar map images. There is end systolic thickening and brightening. The gated Cardiolite study demonstrates myocardial thickening and inward wall motion. The reported LVEF is 55 %. Impression: 1. Rest and stress SPECT currently nuclear imaging demonstrate pre-attenuation correction areas of diminished absence of tracer uptake in portions of the basal inferolateral segments which extend toward the mid inferolateral segments which appear to be somewhat more prominent following stress as opposed to rest as well as post stress demonstrating extension of this area into the distal inferolateral segments. However status post attenuation correction there is subtle decreased tracer uptake in portions of the mid to distal lateral and lateral apical segments which either appear to be somewhat more prominent at rest as opposed to stress or without significant change between rest and stress. The aforementioned findings are concerning for an area of possible previous myocardial injury/infarction involving portions of the inferior lateral segments as well as potentially an area of post stress associated myocardial ischemia. 2. The gated Cardiolite study reports an LVEF of 55 %. This note was generated with [employer] software. It may contain incorrect words, spelling, and punctuation that were not noted in checking the note before signing.
--- NOTE | 2018-03-30 12:31 | PCM.PN.SRG ---
Patient Problems: Active and Suspected Problems GI bleed (Acute) NSTEMI (non-ST elevated myocardial infarction) (Acute) Subjective: Patient's hemoglobin is 8.6 from 8.7., He has ordered lunch denies any abdominal pain still having some black stools. - Physical Exam General: Alert, Oriented x3, Cooperative, No apparent distress Lungs: Normal air movement Cardiovascular: Regular rate Abdomen: Soft, Non Tender, Non-Distended Extremities: No clubbing, No cyanosis, No edema Vital Signs Temp Pulse Resp BP Pulse Ox 98.2 F 62 18 116/62 97 03/30/18 11:12 03/30/18 11:27 03/30/18 11:12 03/30/18 11:15 03/30/18 11:12 Oxygen Delivery Method Room Air Weight: 310 lb 6.574 oz Body Mass Index (BMI) 39.2 Finger Stick Blood Glucose 119 Intake and Output for Last 24 Hours 03/28/18 03/29/18 03/30/18 23:59 23:59 23:59 Intake Total 713 / 713 3275.6 / 3275.6 240 / 240 Output Total 1950 / 1950 1125 / 1125 Balance 713 / 713 1325.6 / 1325.6 -885 / -885 Microbiology Past 72 Hours 03/29/18 16:00 Stool Occult Blood (SEBASTIEN) - Final Stool Occult Blood Positive Laboratory Tests Past 24 Hrs 03/28/18 03/29/18 03/29/18 13:50 04:55 04:55 WBC RBC Hgb Hct MCV MCH MCHC RDW RDW Differential Plt Count MPV Neut % (Auto) Absolute Neuts (auto) Absolute Lymphs (auto) Total Counted Neutrophils % (Manual) Band Neutrophils % Lymphocytes % (Manual) Monocytes % (Manual) Eosinophils % (Manual) Metamyelocytes % Plasma Cell % (Manual) Diff Path Review Reviewed Reviewed Platelet Estimate RBC Morphology PT INR APTT Sodium Potassium Chloride Carbon Dioxide Anion Gap BUN Creatinine Estim Creat Clear Calc Est GFR (MDRD) Af Amer Est GFR (MDRD) Non-Af BUN/Creatinine Ratio Glucose Calcium Iron 38 L TIBC 271 Iron Saturation 14.0 L Ferritin 27 03/30/18 03/30/18 03/30/18 05:10 05:10 05:10 WBC 8.9 RBC 2.72 L Hgb 8.6 L Hct 27.3 L MCV 100.4 H MCH 31.6 MCHC 31.5 L RDW 16.7 H RDW Differential 58.0 H Plt Count 166 MPV 9.8 Neut % (Auto) Not Reportable Absolute Neuts (auto) 7.2 Absolute Lymphs (auto) 0.80 L Total Counted 100 Neutrophils % (Manual) 81 H Band Neutrophils % 1 Lymphocytes % (Manual) 9 L Monocytes % (Manual) 4 Eosinophils % (Manual) 3 Metamyelocytes % 1 Plasma Cell % (Manual) 1 Diff Path Review May foll Platelet Estimate ADEQUATE RBC Morphology NORM C+C PT 15.4 H INR 1.2 APTT 29.2 Sodium 143 Potassium 4.9 Chloride 115 H Carbon Dioxide 19.0 L Anion Gap 9 BUN 34 H Creatinine 1.57 H Estim Creat Clear Calc 42.90 Est GFR (MDRD) Af Amer 55 L Est GFR (MDRD) Non-Af 45 L BUN/Creatinine Ratio 21.7 H Glucose 104 Calcium 8.5 Iron TIBC Iron Saturation Ferritin Medical Necessity - Tobacco Use Smoking Status: Former smoker Tobacco Use: Cigarettes, Cigars, Pipe Assessment/Plan All Active Problems GI bleed (Acute) NSTEMI (non-ST elevated myocardial infarction) (Acute) Macrocytic anemia (Acute) Hyperkalemia (Acute) Sepsis (Acute) Cellulitis (Acute) 82-year-old male with anemia, melena-punctate erosions seen in the body of the stomach on EGD nonbleeding, elevated troponins-secondary to demand ischemia 1. Okay to advance patient's diet. Recommend continuing Protonix for at least a month and the Carafate for at least 3 weeks after discharge. Also recommended avoiding aspirin or ibuprofen/Daypro. We will have the patient follow-up with me in office about 3 weeks. Patient is are agreeable with plan. Nola Rodgers M.D. Pager: [phone] [facility] [address] [place] [address], [facility], [address] [place] [id number] Office: [phone]
--- NOTE | 2018-03-30 12:34 | PN.SURG_ITS ---
Patient Problems: Active and Suspected Problems GI bleed (Acute) NSTEMI (non-ST elevated myocardial infarction) (Acute) Subjective: Patient's hemoglobin is 8.6 from 8.7., He has ordered lunch denies any abdominal pain still having some black stools. - Physical Exam General: Alert, Oriented x3, Cooperative, No apparent distress Lungs: Normal air movement Cardiovascular: Regular rate Abdomen: Soft, Non Tender, Non-Distended Extremities: No clubbing, No cyanosis, No edema Vital Signs Temp Pulse Resp BP Pulse Ox 98.2 F 62 18 116/62 97 03/30/18 11:12 03/30/18 11:27 03/30/18 11:12 03/30/18 11:15 03/30/18 11:12 Oxygen Delivery Method Room Air Weight: 310 lb 6.574 oz Body Mass Index (BMI) 39.2 Finger Stick Blood Glucose 119 Intake and Output for Last 24 Hours 03/28/18 03/29/18 03/30/18 23:59 23:59 23:59 Intake Total 713 / 713 3275.6 / 3275.6 240 / 240 Output Total 1950 / 1950 1125 / 1125 Balance 713 / 713 1325.6 / 1325.6 -885 / -885 Microbiology Past 72 Hours 03/29/18 16:00 Stool Occult Blood (SEBASTIEN) - Final Stool Occult Blood Positive Laboratory Tests Past 24 Hrs 03/28/18 03/29/18 03/29/18 13:50 04:55 04:55 WBC RBC Hgb Hct MCV MCH MCHC RDW RDW Differential Plt Count MPV Neut % (Auto) Absolute Neuts (auto) Absolute Lymphs (auto) Total Counted Neutrophils % (Manual) Band Neutrophils % Lymphocytes % (Manual) Monocytes % (Manual) Eosinophils % (Manual) Metamyelocytes % Plasma Cell % (Manual) Diff Path Review Reviewed Reviewed Platelet Estimate RBC Morphology PT INR APTT Sodium Potassium Chloride Carbon Dioxide Anion Gap BUN Creatinine Estim Creat Clear Calc Est GFR (MDRD) Af Amer Est GFR (MDRD) Non-Af BUN/Creatinine Ratio Glucose Calcium Iron 38 L TIBC 271 Iron Saturation 14.0 L Ferritin 27 03/30/18 03/30/18 03/30/18 05:10 05:10 05:10 WBC 8.9 RBC 2.72 L Hgb 8.6 L Hct 27.3 L MCV 100.4 H MCH 31.6 MCHC 31.5 L RDW 16.7 H RDW Differential 58.0 H Plt Count 166 MPV 9.8 Neut % (Auto) Not Reportable Absolute Neuts (auto) 7.2 Absolute Lymphs (auto) 0.80 L Total Counted 100 Neutrophils % (Manual) 81 H Band Neutrophils % 1 Lymphocytes % (Manual) 9 L Monocytes % (Manual) 4 Eosinophils % (Manual) 3 Metamyelocytes % 1 Plasma Cell % (Manual) 1 Diff Path Review May foll Platelet Estimate ADEQUATE RBC Morphology NORM C+C PT 15.4 H INR 1.2 APTT 29.2 Sodium 143 Potassium 4.9 Chloride 115 H Carbon Dioxide 19.0 L Anion Gap 9 BUN 34 H Creatinine 1.57 H Estim Creat Clear Calc 42.90 Est GFR (MDRD) Af Amer 55 L Est GFR (MDRD) Non-Af 45 L BUN/Creatinine Ratio 21.7 H Glucose 104 Calcium 8.5 Iron TIBC Iron Saturation Ferritin Medical Necessity - Tobacco Use Smoking Status: Former smoker Tobacco Use: Cigarettes, Cigars, Pipe Assessment/Plan All Active Problems GI bleed (Acute) NSTEMI (non-ST elevated myocardial infarction) (Acute) Macrocytic anemia (Acute) Hyperkalemia (Acute) Sepsis (Acute) Cellulitis (Acute) 82-year-old male with anemia, melena-punctate erosions seen in the body of the stomach on EGD nonbleeding, elevated troponins-secondary to demand ischemia 1. Okay to advance patient's diet. Recommend continuing Protonix for at least a month and the Carafate for at least 3 weeks after discharge. Also recommended avoiding aspirin or ibuprofen/Daypro. We will have the patient follow-up with me in office about 3 weeks. Patient is are agreeable with plan. Nola Rodgers M.D. Pager: [phone] [facility] [address] [place] [address], [facility], [address] [place] [id number] Office: [phone]
--- NOTE | 2018-03-30 13:40 | DCINST_ITS ---
- Discharge Diagnoses Current Active Problems: Current Active and Chronic Problems GI bleed (Acute) NSTEMI (non-ST elevated myocardial infarction) (Acute) Chronic renal insufficiency (Chronic) You will use the following diet at home:: Cardiac Your food should be the consistency of: Regular Your liquids should be the consistency of: Regular/Thin Discharge Activity: Return to Normal Activity Additional Instructions: No NSAIDS. Allergies/Adverse Reactions: Allergies No Known Allergies Allergy (Verified 05/19/16 03:11) Medications to take at Discharge Multivitamin [Daily Multiple Vitamin] 1 each PO DAILY 05/19/16 Meclizine HCl [Antivert] 12.5 mg PO TID PRN PRN #30 tablet 12/03/16 Allopurinol [Zyloprim] 300 mg PO DAILY 03/28/18 Fluoxetine HCl 40 mg PO DAILY 03/28/18 Levothyroxine Sodium [Synthroid] 125 mcg PO DAILY 03/28/18 Acetaminophen [Tylenol Tablet] 650 mg PO Q6H PRN PRN tablet 03/30/18 Atorvastatin Calcium [Lipitor] 40 mg PO QHS #30 tablet 03/30/18 Losartan Potassium [Cozaar] 50 mg PO DAILY #30 tablet 03/30/18 Metoprolol Tartrate [Lopressor (beta av)] 12.5 mg PO BID #60 tablet 03/30/18 Pantoprazole Sodium [Protonix] 40 mg PO BID #60 tablet 03/30/18 Pantoprazole Sodium [Protonix] 40 mg PO DAILY #30 tablet 03/30/18 Sucralfate [Carafate] 1 gm PO 1HR_ACHS #90 tablet 03/30/18 traMADol [Ultram] 50 mg PO TID PRN PRN #21 tablet 03/30/18 The following prescriptions were given: Atorvastatin Calcium [Lipitor] 40 mg PO QHS #30 tablet Losartan Potassium [Cozaar] 50 mg PO DAILY #30 tablet Metoprolol Tartrate [Lopressor (beta av)] 12.5 mg PO BID #60 tablet Pantoprazole Sodium [Protonix] 40 mg PO DAILY #30 tablet Sucralfate [Carafate] 1 gm PO 1HR_ACHS #90 tablet traMADol [Ultram] 50 mg PO TID PRN PRN #21 tablet PRN Reason: Moderate Pain (4-5/10) Orders to be completed after discharge: CBC-Complete Blood Cnt No Diff Time Frame: 1 Week, Location: Laboratory Primary Care Physician: Alexandro Lovell MD [Primary Care Provider] - Please follow up with your Primary Care Physician in: 1-2 weeks Test Results: Test results from this visit will be discussed in further detail at your follow- up appointment, if applicable. Please Follow Up With: Zac Parker MD When: 2 weeks Please Follow Up With: Nola Rodgers MD When: 3 weeks Proposed Discharge Date: 03/30/18
--- NOTE | 2018-03-30 14:12 | PCM.DC.SUM ---
<Fernie Booth - Last Filed: 03/30/18 14:14> Discharge Date and Diagnosis - Problem List Patient Problems: Active and Suspected Problems GI bleed (Acute) NSTEMI (non-ST elevated myocardial infarction) (Acute) Date of Admission: 03/28/18 Date of Discharge: 03/30/18 - Primary Discharge Diagnosis Active and Suspected Problems GI bleed (Acute) presumed upper 2/2 erosive gastritis NSTEMI (non-ST elevated myocardial infarction) (Acute) Acute blood loss anemia 2/2 GI bleed CKDIII HTN Chronic back pain Hypothyroidism Gout Morbid obesity - Secondary Discharge Diagnosis Chronic Problems Chronic renal insufficiency (Chronic) Morbid obesity with BMI of 40.0-44.9, adult (Chronic) Osteoarthritis (Chronic) Hypothyroidism (Chronic) Gout (Chronic) HTN (hypertension) (Chronic) CKD (chronic kidney disease) stage 3, GFR 30-59 ml/min (Chronic) Hospital Course and Treatment Imaging Results: 03/30/18 05:55 Nuclear Stress Test - Chemical [NM] AM (NON MEDS) Impression: 1. Rest and stress SPECT currently nuclear imaging demonstrate pre-attenuation correction areas of diminished absence of tracer uptake in portions of the basal inferolateral segments which extend toward the mid inferolateral segments which appear to be somewhat more prominent following stress as opposed to rest as well as post stress demonstrating extension of this area into the distal inferolateral segments. However status post attenuation correction there is subtle decreased tracer uptake in portions of the mid to distal lateral and lateral apical segments which either appear to be somewhat more prominent at rest as opposed to stress or without significant change between rest and stress. The aforementioned findings are concerning for an area of possible previous myocardial injury/infarction involving portions of the inferior lateral segments as well as potentially an area of post stress associated myocardial ischemia. 2. The gated Cardiolite study reports an LVEF of 55 %. RAD/Chest 1 View (Portable) IMPRESSION: Scattered calcified granulomas. Hyperinflation. Prominence of the pulmonary hilar arteries. Echo: Segmental dysfunction with preserved ejection fraction (see wall motion). The estimated ejection fraction is 60 %. Mild concentric left ventricular hypertrophy. The left atrium is mildly enlarged. Trivial mitral valve insufficiency. Mild tricuspid valve insufficiency. Aortic valve sclerosis / mild aortic valve stenosis. Trivial aortic valve insufficiency. Right ventricular systolic pressure estimated to be 50 mmHg. There is evidence of diastolic dysfunction. Consults: [place] - Gen Surg [place] - Cardiology Operations: None Procedures: 2-D Echocardiogram, EGD, Stress test Summary of Care Provided: Hospital course: The patient is a 82 year old M with past medical history of chronic back pain for which he is taking large doses of Daypro and ibuprofen and aspirin, history of hypothyroidism, gout, hyperlipidemia, who presented to the emergency room with fatigue, chest pain. He is found to have elevated troponin of 1.210 and significant anemia at 7.6. He had positive Hemoccult stool and was presumed to have a GI bleed. General surgery and cardiology were consulted for non-STEMI and acute blood loss anemia secondary to GI bleed. He underwent an EGD with Dr. Rodgers and was found to have erosive gastritis. This is felt to be secondary to his chronic NSAID use. Echocardiogram was obtained which demonstrated findings as above. Stress test was obtained and was equivocal. Cardiology felt that he would need to undergo a cardiac catheterization as an outpatient after he would be able to be started on antiplatelet agents. This is not an option at this time given his GI bleed. He was placed on Protonix 40 twice daily and Carafate. He will need to follow-up with Dr. mehran stafford in 3 weeks and will undergo a repeat EGD in 3-4 weeks. After that point he may be able to have a cardiac catheterization. He will follow up with Dr. Parker in 1-2 as an outpatient to arrange for this. He was discharged home in stable condition. He cannot have aspirin or Plavix, however he will be discharged on losartan, atorvastatin, and metoprolol. Please also follow-up with your PCP in 1-2 weeks. This patient was seen by Fernie Booth PA-C under the supervision of Doctor Das. [] Patient Problems: Active and Suspected Problems GI bleed (Acute) NSTEMI (non-ST elevated myocardial infarction) (Acute) - Physical Exam General: Alert, Oriented x3, Cooperative HEENT: Atraumatic, PERRLA, EOMI, Normocephalic Neck: Supple, No JVD, Negative Carotid Bruits Lungs: Clear to auscultation, Normal air movement Cardiovascular: Regular rate, No murmurs Abdomen: Bowel Sounds Present, Soft, Non Tender, Obese Extremities: No edema, Capillary Refill Less than 3 Seconds Skin: No rashes, No breakdown Musculoskeletal: No Tenderness to Palpation of Joints or Extremities Neurological: Cranial nerves II-XII grossly intact Psych/Mental Status: Normal Affect, Appropriate, Alert and oriented to time, place, person, mood and affect Vital Signs Temp Pulse Resp BP Pulse Ox 98.2 F 62 18 116/62 97 03/30/18 11:12 03/30/18 11:27 03/30/18 11:12 03/30/18 11:15 03/30/18 11:12 Oxygen Delivery Method Room Air Weight: 310 lb 6.574 oz Body Mass Index (BMI) 39.2 Finger Stick Blood Glucose 119 Intake and Output for Last 24 Hours 03/28/18 03/29/18 03/30/18 23:59 23:59 23:59 Intake Total 713 / 713 3275.6 / 3275.6 240 / 240 Output Total 1950 / 1950 1125 / 1125 Balance 713 / 713 1325.6 / 1325.6 -885 / -885 Microbiology Past 72 Hours 03/29/18 16:00 Stool Occult Blood (SEBASTIEN) - Final Stool Occult Blood Positive Laboratory Tests Past 24 Hrs 03/28/18 03/29/18 03/30/18 13:50 04:55 05:10 WBC 8.9 RBC 2.72 L Hgb 8.6 L Hct 27.3 L MCV 100.4 H MCH 31.6 MCHC 31.5 L RDW 16.7 H RDW Differential 58.0 H Plt Count 166 MPV 9.8 Neut % (Auto) Not Reportable Absolute Neuts (auto) 7.2 Absolute Lymphs (auto) 0.80 L Total Counted 100 Neutrophils % (Manual) 81 H Band Neutrophils % 1 Lymphocytes % (Manual) 9 L Monocytes % (Manual) 4 Eosinophils % (Manual) 3 Metamyelocytes % 1 Plasma Cell % (Manual) 1 Diff Path Review Reviewed Reviewed September foll Platelet Estimate ADEQUATE RBC Morphology NORM C+C PT INR APTT Sodium Potassium Chloride Carbon Dioxide Anion Gap BUN Creatinine Estim Creat Clear Calc Est GFR (MDRD) Af Amer Est GFR (MDRD) Non-Af BUN/Creatinine Ratio Glucose Calcium 03/30/18 03/30/18 05:10 05:10 WBC RBC Hgb Hct MCV MCH MCHC RDW RDW Differential Plt Count MPV Neut % (Auto) Absolute Neuts (auto) Absolute Lymphs (auto) Total Counted Neutrophils % (Manual) Band Neutrophils % Lymphocytes % (Manual) Monocytes % (Manual) Eosinophils % (Manual) Metamyelocytes % Plasma Cell % (Manual) Diff Path Review Platelet Estimate RBC Morphology PT 15.4 H INR 1.2 APTT 29.2 Sodium 143 Potassium 4.9 Chloride 115 H Carbon Dioxide 19.0 L Anion Gap 9 BUN 34 H Creatinine 1.57 H Estim Creat Clear Calc 42.90 Est GFR (MDRD) Af Amer 55 L Est GFR (MDRD) Non-Af 45 L BUN/Creatinine Ratio 21.7 H Glucose 104 Calcium 8.5 Discharge Diet: Low fat/ Low Cholesterol, 2000 mg Sodium Diet Discharge Activity: Return to Normal Activity Home Medications: Medications to take at Discharge Multivitamin [Daily Multiple Vitamin] 1 each PO DAILY 05/19/16 Meclizine HCl [Antivert] 12.5 mg PO TID PRN PRN #30 tablet 12/03/16 Allopurinol [Zyloprim] 300 mg PO DAILY 03/28/18 Fluoxetine HCl 40 mg PO DAILY 03/28/18 Levothyroxine Sodium [Synthroid] 125 mcg PO DAILY 03/28/18 Acetaminophen [Tylenol Tablet] 650 mg PO Q6H PRN PRN tablet 03/30/18 Atorvastatin Calcium [Lipitor] 40 mg PO QHS #30 tablet 03/30/18 Losartan Potassium [Cozaar] 50 mg PO DAILY #30 tablet 03/30/18 Metoprolol Tartrate [Lopressor (beta randa)] 12.5 mg PO BID #60 tablet 03/30/18 Pantoprazole Sodium [Protonix] 40 mg PO BID #60 tablet 03/30/18 Pantoprazole Sodium [Protonix] 40 mg PO DAILY #30 tablet 03/30/18 Sucralfate [Carafate] 1 gm PO 1HR_ACHS #90 tablet 03/30/18 traMADol [Ultram] 50 mg PO TID PRN PRN #21 tablet 03/30/18 Following Prescrptions Were Given to Patient: Atorvastatin Calcium [Lipitor] 40 mg PO QHS #30 tablet Losartan Potassium [Cozaar] 50 mg PO DAILY #30 tablet Metoprolol Tartrate [Lopressor (beta arnda)] 12.5 mg PO BID #60 tablet Pantoprazole Sodium [Protonix] 40 mg PO DAILY #30 tablet Pantoprazole Sodium [Protonix] 40 mg PO BID #60 tablet Sucralfate [Carafate] 1 gm PO 1HR_ACHS #90 tablet traMADol [Ultram] 50 mg PO TID PRN PRN #21 tablet PRN Reason: Moderate Pain (4-5/10) Other Amb Orders: CBC-Complete Blood Cnt No Diff Time Frame: 1 Week, Location: Laboratory Primary Care Physician: Alexandro Lovell MD [Primary Care Provider] - Please follow up with your Primary Care Physician in: 1-2 weeks Please Follow Up With: Zac Parker MD When: 2 weeks Please Follow Up With: Nola Rodgers MD When: 3 weeks Disposition: Home Minutes spent on discharge:: 40 Patient Condition:: Stable Medical Necessity - Tobacco Use Smoking Status: Former smoker Tobacco Use: Cigarettes, Cigars, Pipe Meaningful Use Info Meaningful Use Diagnoses (Choose all that apply): AMI - AMI Aspirin given w/in 24hrs of arrival?: No Reason no aspirin w/in 24hrs of arrival?: GI bleed ASA at discharge?: No Reason ASA not ordered:: Drug Interaction Statins at discharge?: Yes Dio/ARB at discharge?: Yes Beta Randa at discharge?: Yes Done w/ Acute TX measure.: Yes <PippaJuan E - Last Filed: 03/30/18 14:53> Discharge Date and Diagnosis - Primary Discharge Diagnosis Active and Suspected Problems GI bleed (Acute) NSTEMI (non-ST elevated myocardial infarction) (Acute) - Secondary Discharge Diagnosis Chronic Problems Chronic renal insufficiency (Chronic) Morbid obesity with BMI of 40.0-44.9, adult (Chronic) Osteoarthritis (Chronic) Hypothyroidism (Chronic) Gout (Chronic) HTN (hypertension) (Chronic) CKD (chronic kidney disease) stage 3, GFR 30-59 ml/min (Chronic) Hospital Course and Treatment Imaging Results: 03/30/18 05:55 Nuclear Stress Test - Chemical [NM] AM (NON MEDS) Summary of Care Provided: Hospitalist note: Discharge summary above reviewed and I agree with above discharge and treatment plan. Patient was admitted for weakness, fatigue and chest pain and he was found to have acute severe blood loss anemia secondary to GI bleed as well as acute non-ST elevation TX. On admission, patient was found to have hemoglobin of 7.6 g/dL. Patient stated that he has been using high-dose aspirin as well as multiple doses of ibuprofen every day for the last 3 months for arthritis and back pain. He received a total of 2 units of packed RBCs and his hemoglobin was 8.6 g/dL upon discharge. His platelet count, pro time and INR were normal. General surgery consulted and patient underwent upper EGD that revealed nonbleeding erosive gastropathy and gastritis, biopsies taken and were pending at the time of discharge. Patient was treated with IV Protonix drip and IV fluids as well as blood transfusion. On admission, patient complained of chest pain and he was found to have acute non-ST elevation TX. His troponin was elevated. 2D echocardiogram reviewed and revealed normal ejection fraction. Cardiology consulted and recommended nuclear stress test that was performed and revealed findings concerning for area of possible previous myocardial injury/infarction involving portions of the inferior lateral segment and potentially an area of stress associated myocardial ischemia. Cardiology recommended medical treatment at this time and cardiac catheterization in the near future after treatment for gastritis and erosive gastropathy that led to GI bleed and anemia. After blood transfusion, patient symptoms improved and he had no more weakness of dizzy spells. His vital signs remained stable. He was started on Protonix and Carafate. Patient discharged home in a stable medical condition, discharged on Protonix for 1 month, discharged on Carafate for 3 weeks, discharged on statins, losartan and metoprolol, no aspirin prescribed, order given to repeat CBC in 1 week, follow-up with PCP in 1-2 weeks, follow-up with cardiology in 2 weeks and follow-up with general surgery in 3 weeks for probable repeat upper EGD. Patient was started on tramadol for chronic back pain and arthritis, I recommended to avoid aspirin and NSAIDs at this time. - Physical Exam General: Alert, Oriented x3, Cooperative, No apparent distress. HEENT: Atraumatic, PERRLA, EOMI. Neck: Supple, No JVD, Negative Carotid Bruits, Trachea Midline, Thyroid Normal. Lungs: Clear to auscultation, Normal air movement, No rhonchi, No wheeze, No rales. Cardiovascular: Regular rate, Regular Rhythm, Normal S1, Normal S2, PMI Normal. Abdomen: Bowel Sounds Present, Soft, Non Tender, Non-Distended, No Hepato-splenomegaly. Extremities: No clubbing, No cyanosis, No edema Skin: No rashes, No breakdown Neurological: Neuro grossly intact Vital Signs stable. This note was generated with [employer] dictation software. It may contain incorrect words, spelling, and punctuation that were not noted in checking the note before signing. - Physical Exam Vital Signs Temp Pulse Resp BP Pulse Ox 98.2 F 62 18 116/62 97 03/30/18 11:12 03/30/18 11:27 03/30/18 11:12 03/30/18 11:15 03/30/18 11:12 Oxygen Delivery Method Room Air Weight: 310 lb 6.574 oz Body Mass Index (BMI) 39.2 Finger Stick Blood Glucose 119 Intake and Output for Last 24 Hours 03/28/18 03/29/18 03/30/18 23:59 23:59 23:59 Intake Total 713 / 713 3275.6 / 3275.6 240 / 240 Output Total 1950 / 1950 1125 / 1125 Balance 713 / 713 1325.6 / 1325.6 -885 / -885 Microbiology Past 72 Hours 03/29/18 16:00 Stool Occult Blood (SEBASTIEN) - Final Stool Occult Blood Positive Laboratory Tests Past 24 Hrs 03/28/18 03/29/18 03/30/18 13:50 04:55 05:10 WBC 8.9 RBC 2.72 L Hgb 8.6 L Hct 27.3 L MCV 100.4 H MCH 31.6 MCHC 31.5 L RDW 16.7 H RDW Differential 58.0 H Plt Count 166 MPV 9.8 Neut % (Auto) Not Reportable Absolute Neuts (auto) 7.2 Absolute Lymphs (auto) 0.80 L Total Counted 100 Neutrophils % (Manual) 81 H Band Neutrophils % 1 Lymphocytes % (Manual) 9 L Monocytes % (Manual) 4 Eosinophils % (Manual) 3 Metamyelocytes % 1 Plasma Cell % (Manual) 1 Diff Path Review Reviewed Reviewed May foll Platelet Estimate ADEQUATE RBC Morphology NORM C+C PT INR APTT Sodium Potassium Chloride Carbon Dioxide Anion Gap BUN Creatinine Estim Creat Clear Calc Est GFR (MDRD) Af Amer Est GFR (MDRD) Non-Af BUN/Creatinine Ratio Glucose Calcium 03/30/18 03/30/18 05:10 05:10 WBC RBC Hgb Hct MCV MCH MCHC RDW RDW Differential Plt Count MPV Neut % (Auto) Absolute Neuts (auto) Absolute Lymphs (auto) Total Counted Neutrophils % (Manual) Band Neutrophils % Lymphocytes % (Manual) Monocytes % (Manual) Eosinophils % (Manual) Metamyelocytes % Plasma Cell % (Manual) Diff Path Review Platelet Estimate RBC Morphology PT 15.4 H INR 1.2 APTT 29.2 Sodium 143 Potassium 4.9 Chloride 115 H Carbon Dioxide 19.0 L Anion Gap 9 BUN 34 H Creatinine 1.57 H Estim Creat Clear Calc 42.90 Est GFR (MDRD) Af Amer 55 L Est GFR (MDRD) Non-Af 45 L BUN/Creatinine Ratio 21.7 H Glucose 104 Calcium 8.5 Minutes spent on discharge:: 36 Patient Condition:: Stable Meaningful Use Info Meaningful Use Diagnoses (Choose all that apply): AMI - AMI Aspirin given w/in 24hrs of arrival?: No Reason no aspirin w/in 24hrs of arrival?: GI bleed ASA at discharge?: No Reason ASA not ordered:: Drug Interaction Statins at discharge?: Yes Dio/ARB at discharge?: Yes Beta Randa at discharge?: Yes Done w/ Acute TX measure.: Yes Code Visit Inpatient E&M: 53390 Disch Hosp
--- NOTE | 2018-03-30 20:00 | PN.CARD_ITS ---
Subjectve: The patient was evaluated earlier this day prior to and following his pharmacologic stress nuclear imaging study. He stated he was doing well with no recurrent chest discomfort or worsening shortness of breath/dyspnea. He noted overall he felt better compared to his arrival at the hospital. Objective: Vital Signs Temp Pulse Resp BP Pulse Ox 98.2 F 62 18 116/62 97 03/30/18 11:12 03/30/18 11:27 03/30/18 11:12 03/30/18 11:15 03/30/18 11:12 Oxygen Delivery Method Room Air Weight: 310 lb 6.574 oz Body Mass Index (BMI) 39.2 Finger Stick Blood Glucose 119 Intake and Output for Last 24 Hours 03/28/18 03/29/18 03/30/18 23:59 23:59 23:59 Intake Total 713 / 713 3275.6 / 3275.6 240 / 240 Output Total 1950 / 1950 1125 / 1125 Balance 713 / 713 1325.6 / 1325.6 -885 / -885 General: Awake, Alert, Oriented x 3, Cooperative, No Acute Distress, Ill Appearing, Obese HEENT: Atraumatic, Normocephalic, PERRL, EOMI, Sclera Non Icteric Oral: Moist Mucosa Neck: Supple, Good ROM, No JVD Lungs: Clear to auscultation Cardiovascular: Regular Rhythm, Normal S1, Normal S2 Vascular: No Carotid Bruits Abdomen: Bowel Sounds Present, Soft, Non Tender, Obese Extremities: No Cyanosis, No Clubbing Neurological: No Focal Motor or Sensory Deficit Psych/Mental Status: Appropriate, Normal Affect 03/30/18 05:10: WBC 8.9, RBC 2.72 L, Hgb 8.6 L, Hct 27.3 L, MCV 100.4 H, MCH 31.6, MCHC 31.5 L, RDW 16.7 H, RDW Differential 58.0 H, Plt Count 166, MPV 9.8, Neut % (Auto) Not Reportable, Absolute Neuts (auto) 7.2, Total Counted 100, Neutrophils % (Manual) 81 H, Band Neutrophils % 1, Lymphocytes % (Manual) 9 L, Monocytes % (Manual) 4, Eosinophils % (Manual) 3, Metamyelocytes % 1, Plasma Cell % (Manual) 1 03/30/18 05:10: Sodium 143, Potassium 4.9, Chloride 115 H, Carbon Dioxide 19.0 L , Anion Gap 9, BUN 34 H, Creatinine 1.57 H, Est GFR (MDRD) Af Amer 55 L, Est GFR (MDRD) Non-Af 45 L, BUN/Creatinine Ratio 21.7 H, Glucose 104, Calcium 8.5 03/30/18 05:10: PT 15.4 H, INR 1.2, APTT 29.2 Rhythm: Sinus rhythm Stress test: Please see official report Medical Necessity - Tobacco Use Smoking Status: Former smoker Tobacco Use: Cigarettes, Cigars, Pipe Assessment/Plan 1. Non-ST segment elevation [place] The patient has chest discomfort. He has had abnormal troponin I levels. He has had no acute ECG changes. This is also in the setting of her recent influenza A vaccine as well as subsequent findings of anemia. The patient's chest discomfort has a positional component which may suggest a possible underlying pericarditis. However the patient has not demonstrated an obvious pericardial friction rub or acute electrocardiographic findings. He has not required additional nonsteroidal or steroidal anti-inflammatory therapy and his symptoms have improved. He has undergone further evaluation with a pharmacologic stress nuclear imaging study. His nuclear images between his pre-attenuation and post attenuation images are concerning for potential area of previous myocardial injury with ass ociated myocardial ischemia. At the present time it was felt the patient would continue medical management. He is not an ideal candidate at this time based upon his GI bleeding process with additional agents such as aspirin, antiplatelet agents, or anticoagulants. He states he is to be reevaluated by general surgery with a repeat EGD prior to able to initiate such therapy. Once he is able to initiate such therapy then he should be considered for further evaluation with diagnostic cardiac catheterization barring unforeseen urgent/emergent events in the interim. 2. Hypertension The patient has a history of hypertension. He states it is been well controlled. His blood pressure will need to be followed. 3. Chronic renal insufficiency Patient has a history of chronic renal insufficiency. This may impact medical therapy and evaluation and care-especially if the patient required IV contrast mediated studies. 4. GI bleed He did undergo EGD earlier this day. There were areas of erosions without active bleeding. At the present time an attempt is being made to avoid antiplatelet therapy/nonsteroidal anti-inflammatory therapy. He is going to undergo future repeat EGD to reassess his GI bleeding status. 5. Anemia Again his anemia is concerning for an upper GI bleed. He has received PRBCs. His hemoglobin has improved but has not yet normalized. It would be beneficial if his hemoglobin improved prior to proceeding with additional invasive evaluation care from a cardiovascular standpoint. Comment: The patient's case was discussed and reviewed with the patient, his spouse, and the [facility] hospitalist staff. This note was generated with [employer] dictation software. It may contain incorrect words, spelling, and punctuation that were not noted in checking the note before signing.
[2018-03-31 10:07] LABS: Pathologist Review Reviewed
== END 2018-03-30 14:56 | disposition home or self-care (01) | DRG 377 ==
LOC: ED 15:13 → PCU 15:42
PROVIDERS: Internal Medicine Cardiovascular Disease; Nurse Practitioner Family; Surgery; Admitting Provider Internal Medicine; Emergency Provider Emergency Medicine; Family Provider Family Medicine; PCP Family Medicine; Visit Provider Hospitalist
PROC: 0DJ08ZZ Inspection of Upper Intestinal Tract, Via Natural or Artificial Opening Endoscopic (ICD-10-PCS; CPT 43235; principal; 2018-03-29 07:25)
DX: K29.61 Other gastritis with bleeding (principal); I21.4 Non-ST elevation (NSTEMI) myocardial infarction; D62 Acute posthemorrhagic anemia; E03.9 Hypothyroidism, unspecified; M10.9 Gout, unspecified; M54.9 Dorsalgia, unspecified; G89.29 Other chronic pain; E66.01 Morbid (severe) obesity due to excess calories; N18.3 Chronic kidney disease, stage 3 (moderate); I12.9 Hypertensive chronic kidney disease with stage 1 through stage 4 chronic kidney disease, or unspecified chronic kidney disease; Z68.39 Body mass index [BMI] 39.0-39.9, adult; M19.90 Unspecified osteoarthritis, unspecified site; Z87.891 Personal history of nicotine dependence; T39.315A Adverse effect of propionic acid derivatives, initial encounter
CPT/HCPCS: 36415; 71045; 78452; 80048; 80061; 80076; 82274; 82728; 83540; 83550; 84484; 85025; 85610; 85652; 85730; 86850; 86900; 86920; 86922; 88305; 88342; 93005; 93017; 93306; 97162; 97165; 97802; 99283; A9500; J7030; J7040; J7120; P9016; Q9957; A4216; C8929; J2785; J3490

== ENCOUNTER 2018-04-26 06:43 | Day surgery (SDC) | payer MEDICARE, BC, SELFPAY ==
[2018-04-21 09:18] VITALS: BMI 39.2
[2018-04-26 07:12] VITALS: BP 115/55; PULSE 65; RESP 18; TEMP 36.4; O2SAT 91; BMI 39.0
[2018-04-26 08:00] VITALS: BP 109/55; BP 115/55; PULSE 62; RESP 16; TEMP 36.4; O2SAT 96
--- NOTE | 2018-04-26 08:05 | OP.ENDO_ITS ---
04/26/2018 Zac Parker [address] [place], [place] [id number] Re : Upper GI endoscopy procedure for Nirmal Plaza Dear Dr. Parker This procedure was performed on Thursday, April 26, 2018. My impressions and recommendations are as follows: Impressions : - Normal examined duodenum. - Erythematous mucosa in the gastroesophageal junction. - No gross lesions in esophagus. - No specimens collected. Recommendations : - Discharge patient to home. - Continue present medications. - Use Protonix (pantoprazole) 40 mg PO daily. My findings are described in the full procedure note, which is enclosed. If I can be of further assistance, please feel free to contact me at Doctor phone number(s): , Work: . Sincerely, MD Nola Junior MD 04/26/2018 8:05:35 AM This report has been signed electronically.
[2018-04-26 08:10] VITALS: BP 104/55; BP 115/55; PULSE 65; RESP 16; O2SAT 93
[2018-04-26 08:15] VITALS: BP 115/55; BP 99/55; PULSE 70; RESP 16; O2SAT 93
[2018-04-26 08:20] VITALS: BP 115/51; BP 115/55; PULSE 62; RESP 16; TEMP 37.6; O2SAT 92
[2018-04-26 08:55] VITALS: BP 115/55
--- OUTSIDE RECORDS SUMMARY | 2018-06-12 02:14 | XMS RPT_ITS ---
:1935 Author Organization [facility] Support Name Relationship Address Phone S Unavailable Unavailable Unavailable KRUEGER, ULISES Unavailable [id number] + [place] [address] S Unavailable Unavailable Unavailable KRUEGER, ULISES Unavailable [address] + [place] [address] S Unavailable Unavailable Unavailable KRUEGER, ULISES Unavailable [address] + [place] [address] S Unavailable Unavailable Unavailable KRUEGER, ULISES Unavailable [address] + [place] [address] S Unavailable Unavailable Unavailable KRUEGER, ULISES Unavailable [address] + [place] [address] S Unavailable Unavailable Unavailable KRUEGER, ULISES Unavailable [address] + [place] [address] S Unavailable Unavailable Unavailable KRUEGER, ULISES Unavailable [address] + [place] [address] S Unavailable Unavailable Unavailable KRUEGER, ULISES Unavailable [address] + [place] [address] S Unavailable Unavailable Unavailable KRUEGER, ULISES Unavailable [address] + [place] [address] S Unavailable Unavailable Unavailable KRUEGER, ULISES Unavailable [address] + [place] [address] S Unavailable Unavailable Unavailable KRUEGER, ULISES Unavailable [address] + [place] [address] S Unavailable Unavailable Unavailable KRUEGER, ULISES Unavailable [address] + [place] [address] S Unavailable Unavailable Unavailable KRUEGER, ULISES Unavailable [address] + [place] [address] S Unavailable Unavailable Unavailable ULISES KRUEGER Unavailable [address] + [place] [address] S Unavailable Unavailable Unavailable ULISES KRUEGER Unavailable [address] + [place] [address] S Unavailable Unavailable Unavailable ULISES KRUEGER Unavailable [address] + [place] [address] NIRMAL KRUEGER Unavailable [address] + [place] [address] Care Team Providers Name Role Phone Robotham Nola Attending Unavailable Ashelfah, Ghasem Attending Unavailable [facility] Unavailable Paintsil, Luray Admitting Unavailable MoodispaZac stafford Consulting Unavailable Robotham, Nola Consulting Unavailable Pealr Valadez Attending Unavailable Anthony Lovell Referring Unavailable WillypaZac stafford Attending Unavailable Zac Parker Referring Unavailable [facility] Care Unavailable Zac Parker Attending Unavailable Zac Parker Referring Unavailable [facility] Unavailable Paintsil, Luray Admitting Unavailable Paintsil, Luray Attending Un[facility] Unavailable Zac Parker Consulting Unavailable Robotham, Nola Consulting Unavailable Paintsil, Luray Consulting Unavailable Paintsil, Luray Admitting Unavailable Zac Parker Attending Unavailable [facility] Care Unavailable Zac Parker Consulting Unavailable Robotham, Nola Consulting Unavailable Paintsil, Luray Consulting Unavailable Paintsil, Luray Admitting Unavailable [facility] Unavailable Zac Parker Consulting Unavailable Ashelfah, Ghasem Attending Unavailable Robotham, Nola Consulting Unavailable Ashelfah, Ghasem Consulting Unavailable Paintsil, Luray Admitting Unavailable Robotham, Nola Attending Unavailable [facility] Care Unavailable MoodZac rogers Consulting Unavailable Robotham, Nola Consulting Unavailable Ashelfah, Ghasem Consulting Unavailable Paintsil, Luray Admitting Unavailable Robotham, Nola Attending Unavailable [facility] Care Unavailable Zac Parker Consulting Unavailable Robotham, Nola Consulting Unavailable Ashelfah, Ghasem Consulting Unavailable Paintsil, Luray Admitting Unavailable Elderbrock, Anthony Primary Care Unavailable Moodispaw, Zac Consulting Unavailable Ashelfah, Ghasem Attending Unavailable Robotham, Nola Consulting Unavailable Ashelfah, Ghasem Consulting Unavailable Paintsil, Luray Admitting Unavailable Moodispaw, Zac Attending Unavailable Elderbrock, Anthony Primary Care Unavailable Moodispaw, Zac Consulting Unavailable Robotham, Nola Consulting Unavailable Ashelfah, Ghasem Consulting Unavailable Robotham, Nola Attending Unavailable Robotham, Nola Referring Unavailable Elderbrock, Anthony Primary Care Unavailable VickersPearl brooks Attending Unavailable Moodispaw, Zac Attending Unavailable Elderbrock, Anthony Referring Unavailable Moodispaw, Zac Attending Unavailable Ashelfah, Ghasem Referring Unavailable ELDERBROCK, ANTHONY Diamond Referring Unavailable ELDERBROCK, ANTHONY Diamond Attending Unavailable ELDERBROCK, ANTHONY Diamond Referring Unavailable ELDERBROCK, ANTHONY Diamond Attending Unavailable ELDERBROCK, ANTHONY Diamond Referring Unavailable TESTRAKE, TRINA Attending Unavailable ELDERBROCK, ANTHONY Diamond Referring Unavailable TESTRAKE, TRINA Referring Unavailable TESTRAKE, TRINA Attending Unavailable TESTRAKE, TRINA Referring Unavailable TESTRAKE, TRINA Referring Unavailable TESTRAKE, TRINA Referring Unavailable ELDERBROCK, ANTHONY Diamond Attending Unavailable ELDERBROCK, ANTHONY Diamond Referring Unavailable ELDERBROCK, ANTHONY Diamond Referring Unavailable JO, ZAC Naranjo Attending Unavailable ELDERBROCK, ANTHONY Diamond Referring Unavailable ELDERBROCK, ANTHONY Diamond Attending Unavailable ELDERBROCK, ANTHONY Diamond Referring Unavailable ELDERBROCK, ANTHONY Diamond Attending Unavailable ELDERBROCK, ANTHONY Diamond Referring Unavailable TESTRAKE, TRINA Attending Unavailable TESTRAKE, TRINA Referring Unavailable ELDERBROCK, ANTHONY Diamond Referring Unavailable TESTRAKE, TRINA Attending Unavailable TESTRAKE, TRINA Referring Unavailable LEESONANTHONY Attending Unavailable ELDERBROCK, ANTHONY Primary Care Unavailable LAHORRAADONAY Attending Unavailable Elderbrock, Anthony Diamond Referring Unavailable Elderbrock, Anthony Diamond Primary Care Unavailable LeesonAnthony Admitting Unavailable LeeAnthony dillon Attending Unavailable PROBLEMS PROBLEMS DATE TYPE CONDITION / CODE ATTENDING STATUS SOURCE Unknown R07.9 - Chest pain, Zac Parker Active [facility] 8 unspecified / Community R07.9(ICD-10) Hospital Repository Unknown I21.4 - Non-ST Zac Parker Active [place] 8 elevation (NSTEMI) Community myocardial infarction Hospital / I21.4(ICD-10) Repository Active Gastrointestinal NA Active [place] 8 hemorrhage, Clinic Main unspecified / [place] K92.2(ICD-10) Repository Active Adverse effect of NA Active [place] 8 other nonsteroidal Clinic Main anti-inflammatory [place] drugs (NSAID), Repository initial encounter / T39.395A(ICD-10) Active Pure NA Active [place] 8 hypercholesterolemia, Clinic Main unspecified / [place] E78.00(ICD-10) Repository Unknown I12.9 - Hypertensive Zac Parker Active [place] 8 chronic kidney Community disease with stage 1 Hospital through stage 4 Repository chronic kidney disease, or unspecified chronic kidney disease / I12.9(ICD-10) Unknown N18.3 - Chronic MoodisZac forrest Active [place] 8 kidney disease, stage Community 3 (moderate) / Hospital N18.3(ICD-10) Repository Active Morbid (severe) NA Active [place] 8 obesity due to excess Clinic Main calories / [place] E66.01(ICD-10) Repository Active Gout, unspecified / NA Active [place] 8 M10.9(ICD-10) Clinic Main [place] Repository Admitting Encounter for ANTHONY SERRATO Active [place] [address] diagnosis follow-up examination JHONOPHINGE Three after completed Repository treatment for conditions other than malignant neoplasm / Z09(ICD-10) Active Spinal stenosis, Active [place] 9 lumbar region without Clinic Main neurogenic [place] claudication / Repository M48.061(ICD-10) Active Non-pressure chronic NA Active [place] 8 ulcer of other part Clinic Main of left foot limited [place] to breakdown of skin Repository / L97.521(ICD-10) Active Anemia, unspecified / Active [place] 7 D64.9(ICD-10) Clinic Main [place] Repository Active Hypothyroidism, NA Active [place] 6 unspecified / Clinic Main E03.9(ICD-10) [place] Repository Active Other abnormal NA [facility] 5 glucose / Clinic Main R73.09(ICD-10) [place] Repository Active Essential (primary) NA Active [place] 8 hypertension / Clinic Main I10(ICD-10) [place] Repository PROCEDURES PROCEDURES No Procedure Records FoundRESULTS RESULTS CARDIOLOGY VISIT Observed: 05/11/2018 Status: F Source: [place] REPORT 4:22 PM [facility] REPOSITORY [facility] [address] [place] [address] OFFICE VISIT Date of Service: 05/10/18 MR#: [id number] Acct: [id number] Name: NIRMAL KRUEGER Rep #: [id number] : 1935 Provider: Pearl Valadez Age/Sex: 82/M Location: [facility] Status: Signed HPI HPI Chief Complaint: NSTEMI/Anemia Details: NIRMAL KRUEGER, is a 82 M who presents to the office today for an updated H AND P for a heart cath, this is scheduled for 05/30/18. The patient was evaluated in cardiovascular consultation on 03/28/2018 at [facility] for concerns of a non-ST segment elevation CO superimposed on hypertension, chronic renal insufficiency, a gastrointestinal bleeding process with associated anemia. He underwent noninvasive evaluation at that time which did include a transthoracic echocardiogram and a pharmacologic stress nuclear imaging study as he was not a candidate for diagnostic cardiac catheterization at that time based upon the inability to be placed on antiplatelet therapy/anticoagulant therapy based upon his gastrointestinal bleeding process and anemia pending further future follow-up GI evaluation/EGD results. He was released home from the hospital and presents today for outpatient cardiovascular follow-up. He underwent a f/u EGD which demonstrated an improved and he was cleared to undergo a heart cath. Pt sts that he does have intermediate episodes of SOB. This is not brought on any thing in particular. He does not have any chest pain/heaviness/tightness. He does sometimes have orthopnea. He does not have any near syncope/syncope. He does not have any palpitations. He does not have any edema. Intake Vital Signs05/10/18 Height 6 ft 2 in 05/10/18 Weight: 300 lb 05/10/18 Body Mass Index (BMI) 38.5 05/10/18 Blood Pressure 132/64 H H H 05/10/18 Blood Pressure Location Lt brachial Intake Visit Reasons: update H AND P Bus And Rail Operator Required: No Accompanied by: Is patient in pain?: No Allergies atorvastatin [From Lipitor] Adverse Reaction (Verified 05/10/18 09:52) MUSCLE PAIN Medications Multivitamin [Daily Multiple Vitamin] 1 ea PO DAILY 05/19/16 [History Confirmed 05/10/18] Meclizine HCl [Antivert] 12.5 mg PO TID PRN PRN #30 tab 12/03/16 [Rx Confirmed 05/10/18] Allopurinol [Zyloprim] 300 mg PO DAILY 03/28/18 [History Confirmed 05/10/18] Fluoxetine HCl 40 mg PO DAILY 03/28/18 [History Confirmed 05/10/18] Levothyroxine Sodium [Synthroid] 125 mcg PO DAILY 03/28/18 [History Confirmed 05/10/18] Metoprolol Tartrate [Lopressor (beta av)] 12.5 mg PO BID #60 tab 03/30/18 [Rx Confirmed 05/10/18] traMADol [Ultram] 50 mg PO TID PRN PRN #21 tab 03/30/18 [Rx Confirmed 05/10/18] losartan 50 mg tablet 50 mg PO DAILY #30 tab 04/21/18 [Rx Confirmed 05/10/18] pantoprazole 40 mg tablet,delayed release 40 mg PO DAILY #30 tab 04/21/18 [Rx Confirmed 05/10/18] aspirin 81 mg tablet,delayed release 81 mg PO DAILY #30 tab 05/10/18 [Rx Confirmed 05/10/18] clopidogrel 75 mg tablet 75 mg PO DAILY #30 tab 05/10/18 [Rx Confirmed 05/10/18] diclofenac epolamine 1.3 % transdermal 12 hour patch TRANSDERMAL 30 Days #30 ea 05/10/18 [History Confirmed 05/10/18] PFSH Medical History Essential hypertension (Chronic) GI bleed (Acute) NSTEMI (non-ST elevated myocardial infarction) (Acute) Chronic renal insufficiency (Chronic) Macrocytic anemia (Acute) Morbid obesity with BMI of 40.0-44.9, adult (Chronic) Osteoarthritis (Chronic) Hypothyroidism (Chronic) Gout (Chronic) Hyperkalemia (Acute) Sepsis (Acute) CKD (chronic kidney disease) stage 3, GFR 30-59 ml/min (Chronic) Cellulitis (Acute) HTN (hypertension) (Inactive) Surgical History History of bilateral hip replacements (Resolved) S/P bilateral foot surgery (Resolved) Family History Father Cancer Lung Social History Smoking Status: Former smoker alcohol intake: never substance use type: does not use ROS Const Const: Negative for weakness, fatigue, fever(s) or headache(s) Eyes Eyes: Negative for blind spots, loss of peripheral vision or transient loss of vision ENT ENT: Negative for headache(s), dizziness, tinnitus or Nosebleed/epistaxis Cardio Chest Pain: No Palpitations: No Edema: None Muscle aches with walking: None Resp Respiratory: Positive for SOB with activity; negative for SOB at rest, SOB orthopnea\SOB lying down or Cough GI GI: Negative nausea, vomiting, heartburn or vomiting blood/hematemesis : Negative for hematuria Musc Musc: Negative for muscle aches/ myalgia Neuro Neuro: Negative for weakness, headache(s), dizziness, near syncope, syncope, lightheadedness or orthostatic symptoms Saji Hematologic/Lymphatic: Negative for easy bleeding Endo Endo: Negative for fatigue Cardiology Exam Const Appearance: cooperative, healthy appearing, comfortable, no acute distress, well developed and well groomed Nutritional Appearance: obese Orientation: alert, awake and oriented x3 Head Head: normal to inspection, normocephalic and atraumatic Ears: hearing grossly normal bilaterally Nose: external nose normal Mouth: oral mucosae normal Teeth and gingiva: fair dentition Eyes Eyelids: eyelids normal Conjunctivae: conjunctivae normal Pupils: PERRL EOM: EOM intact bilaterally Neck Neck: normal visual inspection and full ROM Carotids: normal carotid upstroke Chest Chest inspection: normal inspection of the chest, symmetric chest movement and normal respiratory effort Auscultation: Bilateral: Clear to Auscultation Cardio Palpation: normal PMI Rhythm: regular rhythm Heart sounds: S1 normal and S2 normal GI GI: obese Neuro General: alert, awake and oriented x3 Skin Skin: no rashes or lesions noted Extremities Pulses: Normal: Right Radial Pulse, Left Radial Pulse Lower Extremity Edema: None: Bilateral Psych Psychological: normal affect Assessment AND Plan 1. NSTEMI (non-ST elevated myocardial infarction) I21.4 Plan Patient currently is not having any angina. It is okay for him now to start antiplatelet therapy. He will start this after his back injection. Patient was given instructions for his heart catheterization, he agrees with plan of care. The plan is to try a radial approach. For now patient will continue with aggressive medical management. We will follow up accordingly after his heart catheterization. 2. Essential hypertension I10 Plan Adequately controlled on current medications. Will not make any adjustments. Plan Detail Other Orders Orders: Other Medications New: Changed: To: clopidogrel take 4 pills on 05/24/18 then one a day af75 mg PO DAILY [address] that Additional Comments Thank you for allowing us to participate in patient's plan of care, if you have any questions please do not hesitate to call. This note was generated using a voice recognition system and there may be incorrect words, spelling or punctuation errors that were not noted when reviewing the office note prior to saving. Follow Up 05/10/18 (Keep as is) Coding Level of Care Code Off vis,est,level 3 Diagnoses NSTEMI (non-ST elevated myocardial infarction) I21.4 Essential hypertension I10 Coding Level of Care Code Off vis,est,level 3 Diagnoses NSTEMI (non-ST elevated myocardial infarction) I21.4 Essential hypertension I10 05/11/18 1622 <Electronically signed by Pearl WELSH> Date Pearl WELSH Cosign Signature: Date (if applicable) CC: Anthony Lovell MD CBC-COMPLETE BLOOD CNT Collected: 05/10/2018 Status: F Source: [place] NO DIFF 10:58 AM [facility] REPOSITORY TYPE CODE TESTS RESULT OUT OF RANGE REFERENCE UNITS LAB L100.1000 4.4-11.0 K/mm3 Normal WBC 8.5 LAB L100.1200 4.6-6.2 M/mm3 Low RBC 3.57 LAB L100.1300 13.0-16.5 g/dl Low HGB 10.5 LAB L100.1400 40-54 % Low HCT 34.3 LAB L100.1500 80-94 fL High MCV 96.1 LAB L100.1600 27.0-32.0 pg Normal MCH 29.4 LAB L100.1700 32-36 g/gl Low MCHC 30.6 LAB L100.1810 11.6-14.6 % High RDW CV 15.2 LAB L100.1820 35.1-43.9 fl High RDW SD 53.7 LAB L100.1900 150-450 K/mm3 Normal PLT 224 LAB L100.2000 6.2-12.0 fl Normal MPV 10.0 Performed By: #### L100.0500 #### [facility] [address] [place], [address] PROTHROMBIN TIME W/INR Collected: 05/10/2018 Status: F Source: [place] 10:58 AM [facility] REPOSITORY TYPE CODE TESTS RESULT OUT OF RANGE REFERENCE UNITS LAB L300.4150 11.7-14.9 SECONDS High PROTIME 15.1 LAB L300.4200 Normal INR 1.2 Performed By: #### L300.3900, L300.4310 #### [facility] [address] [facility] [address] PARTIAL THROMBOPLAST Collected: 05/10/2018 Status: F Source: [place] TIME 10:58 AM [facility] REPOSITORY TYPE CODE TESTS RESULT OUT OF RANGE REFERENCE UNITS LAB L300.4310 24.1-36.2 Seconds Normal PTT 28.2 Performed By: #### L300.3900, L300.4310 #### [facility] [address] [facility] [address] BASIC METABOLIC Collected: 05/10/2018 Status: F Source: [place] PROFILE (BMP) 10:58 AM [facility] REPOSITORY TYPE CODE TESTS RESULT OUT OF RANGE REFERENCE UNITS LAB L501.0100 74-106 mg/dL High GLU 123 Result Comment: Fasting Glucose result from 100 to 125 mg/dL suggests IMPAIRED HOMEOSTASIS per A.D.A. criteria. Please note revised GLUCOSE reference range effective 2017. LAB L501.1000 7-18 mg/dL High BUN 38 LAB L501.1100 0.70-1.30 mg/dL High CREAT,SERUM 1.40 Result Comment: The validity of the calculated GFR AND GFRAA in patients over 70 years has not been determined. Clinical correlation is essential. LAB L501.1110 >60 mL/min Low EST GFR 52 Result Comment: Non- GFR Calc LAB L501.1115 >60 mL/min Normal EST GFR - AA 63 Result Comment: GFR Calc LAB L501.1300 10-20 RATIO High BUN/CRE 27.1 LAB L501.2200 8.5-10.1 mg/dL CA Normal 9.0 LAB L501.5300 136-145 mmol/L NA Normal 144 LAB L501.5600 3.5-5.1 mmol/L K Normal 4.6 LAB L501.5900 98-107 mmol/L High CL 111 LAB L501.6100 21.0-32.0 mmol/L Normal CO2 25.0 LAB L501.6200 5-15 Normal GAP 8 Performed By: #### L500.2500 #### [facility] [address] [place], [address] 12 LEAD EKG PERFORMED Observed: 05/10/2018 Status: F Source: [place] [facility] 9:44 AM [facility] REPOSITORY [facility] [address] [place] [address] 12 Lead EKG performed by [facility] 05/10/18 0943 MR#: [id number] Acct: [id number] Name: NIRMAL KRUEGER Rep #: [id number] : 1935 82 From: Pearl WELSH Attending Dr: Pearl Valadez Status: DEP AMB Ordering Dr: Pearl Valadez Date: 05/10/18 Location: [facility] Sex: M C Admitted: [facility]/12 Lead EKG performed by [facility] ECG Report Interpretation Sinus Rhythm - occasional PAC Left axis deviationLeft anterior fascicular blockPoor R wave progression ABNORMAL Electronically signed on 05/11/2018 at 16:17 by Zac Parker Software Version [id number] 05/11/18 1620 Date Pearl WELSH CC: Anthony Lovell MD Date Dictated: 05/10/18942 Date Transcribed: 05/10/18942 Tap And Die Maker Technician: BERTHA Signed OPERATIVE REPORT - Observed: 04/26/2018 Status: F Source: [place] ENDOSCOPY 8:05 AM [facility] Medical Records Department [address] [place] [address] Operative Report - Endoscopy MR#: [id number] Acct: [id number] Name: NIRMAL KRUEGER Rep #: [id number] : 1935 82 From: Nola Rodgers MD PCP: Anthony Lovell MD Status: REG [facility] [place] 04/26/2018 Zac Parker [facility] [place] [id number] Re : Upper GI endoscopy procedure for Nirmal Krueger Dear Dr. Parker This procedure was performed on Thursday, April 26, 2018. My impressions and recommendations are as follows: Impressions : - Normal examined duodenum. - Erythematous mucosa in the gastroesophageal junction. - No gross lesions in esophagus. - No specimens collected. Recommendations : - Discharge patient to home. - Continue present medications. - Use Protonix (pantoprazole) 40 mg PO daily. My findings are described in the full procedure note, which is enclosed. If I can be of further assistance, please feel free to contact me at Doctor phone number(s): , Work: . Sincerely, MD Nola Junior MD 04/26/2018 8:05:35 AM This report has been signed electronically. 04/26/18804 Date Nola Rodgers MD Cosigner Signature: Date (if indicated) CC: Anthony Lovell MD; Zac Parker MD; Nola Rodgers MD Date Dictated: 04/26/18 0737 Date Transcribed: Tap And Die Maker Technician: DEE Signed KURTIS Observed: 04/24/2018 Status: COMPLETED Source: [place] 11:00 AM [facility] REPOSITORY Office Visit (PNMDNA) NIRMAL KRUEGER ([id number]) 1935 M Date Time Provider Department 04/24/18 11:00 AM ZAC JO PNPASCUAL During your visit today, we recorded the following information about you: Pulse Weight 69/minute 137.4 kg Zac Jo MD 04/24/2018 1:38 PM Signed [facility] Pain Management Department Date: April 24, 2018 - 10:55 AM Nirmal Krueger is seen in consultation requested by Dr. Anthony Lovell for an opinion regarding chronic lower back and bilateral lower extremity pain. My final recommendations will be communicated back to the requesting physician by way of shared medical record or via US mail. Chief Complaint: lower back pain and bilateral lower extremity pain SUBJECTIVE: Nirmal Krueger, is a 82 year old year old with no significant past medical history, who presents with lower back pain and bilateral lower extremity pain. The pain started 15 years ago, following with no precipitating event. The patient states that the pain is worsening. His pain is located in the bilateral and middle lumbar region and radiates down the posterior leg. The pain is described as aching. The pain intensity is rated 8. The pain is exacerbated by activity, standing, walking, arising from a sitting position, lifting and twisting and relieved by medications - NSAIDs. Symptoms interfere with physical activity, work, walking and lifting. Obtained by Selam Haider MA by interview I have reviewed, confirmed and edited the preliminary information with the patient: In addition the patient reports no additional concerns. Litigation: No. Prior pain treatment has included no specific interventions. He had relief from the following interventions: None. ALLERGIES Allergen Reactions - Lipitor [Atorvastat* Myalgia Caused Mental thoughts as well, per patient. - Nsaids (Non-Steroid* Other: See Comments GI bleed Current Medications: Pain medications reviewed and reconciled in the medication list: Yes. Current Outpatient Prescriptions: traMADol (ULTRAM) 50 mg tablet Take 1 tablet by mouth every 6 hours as needed for Pain for up to 30 days. tiZANidine (ZANAFLEX) 4 mg tablet Take 1 tablet by mouth every 8 hours as needed (back pain). losartan (COZAAR) 50 mg tablet Take 1 tablet by mouth once daily. metoprolol tartrate, short acting, (LOPRESSOR) 25 mg tablet Take 0.5 tablets by mouth twice daily. pantoprazole DR (PROTONIX) 40 mg tablet Take 1 tablet by mouth daily before breakfast. Take on empty stomach, 1/2 hr before meal. sucralfate (CARAFATE) 1 gram tablet Take 1 tablet by mouth before meals and at bedtime. atorvastatin (LIPITOR) 40 mg tablet Take 1 tablet by mouth daily at bedtime. For cholesterol. FLUoxetine HCl (PROZAC) 40 mg capsule Take 1 capsule by mouth once daily. levothyroxine (SYNTHROID) 125 mcg tablet Take 1 tablet by mouth once daily. colchicine (COLCRYS) 0.6 mg tablet Take 1 tablet by mouth once daily. allopurinol (ZYLOPRIM) 300 mg tablet Take 1 tablet by mouth once daily. irbesartan (AVAPRO) 150 mg tablet Take 1 tablet by mouth daily at bedtime. COMPOUNDED PRESCRIPTION Osteo Biflex COMPOUNDED PRESCRIPTION Vitamin B6 diclofenac (FLECTOR) 1.3 % topical patch Apply 1 Patch as directed once daily as needed. No current facility-administered medications for this visit. 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 Quit 06/24/1981. (cigars) Drug Use: Not on file Employer And Job Title: None on file Years Of Education Completed: Not specified Marital Status: REVIEW OF SYSTEMS: Constitutional: (-) Fever (-) Night Sweats (-) Weight Gain (-) Weight Loss (-) Fatigue Cardiovascular: (-) Chest Pain (-) Palpitations (-) Lightheadedness (-) Swelling of Ankles (-) Hx Heart Surgery Respiratory: (-) Shortness of Breath (-) Cough (-) Wheezing (-) Snoring Gastrointestinal: (-) Incontinence (-) Abdominal Pain (-) Diarrhea (-) Constipation (-) Nausea/Vomiting (-) Heart Burn Endocrine: (-) Thyroid Disorder (-) Diabetes Hematologic: (-) Prolonged Bleeding (-) Easy Bruising Genitourinary: (-) Incontinence (-) Frequency (-) Urinary Urgency Skin: (-) Rashes (-) Itching (-) Other Lesions Neurologic: (-) Headache (-) Double Vision (-) Confusion (-) Paralysis (-) Vertigo (-) Syncope Psychiatric: (-) Depression (-) Anxiety (-) Delusions (-) Hallucinations (-) Suicidal Thoughts Selam Haider MA OARRS Report reviewed: Yes Narcotic Agreement reviewed and signed?: N/A Baseline Urine Toxicology obtained: N/A Urine Panel: No results found for: UQCANN, UQBNZL, RYZ1IPC, UQAMPH, UQMAMP, UQBUPRE, UQNORBUP, UQMTHD, UQEDDP, UQTRAM, UQDTRM, UQFNTL, UQNFTL, UQCODE, UQMORP, UQDCDN, UQHCOD, UQOXYC, UQHMOR, UQOXYM, UQCREA, UQPH, UQSPGR, UQOXID, UQSPQ The pain panel was N/A I have reviewed, confirmed and edited the preliminary information with the patient: OBJECTIVE: PHYSICAL EXAMINATION: Pulse 69 Wt 303 lb (137.4kg) SpO2 90% Performed in conjunction with observation. The patient was alert and oriented x3. The patient was in no acute distress. Lungs: Clear to auscultation. CVR: Regular Rate. Neck: Supple. The range of motion was intact. Spurling's: negative Back: Range of motion of the trunk was limited. SLR: equivocal Facet Loading: positive with axial loading and extension. SI joint: bilateral PSIS tenderness. negative Sacral thrust. Extremities: no reported edema or erythema. Motor: 5/5 and symmetric Sensory: intact to light touch and sharp Gait: slow, intact. Medical record and diagnostic tests reviewed for today's visit: The [facility] EMR was reviewed during the visit IMAGING STUDIES: No new imaging studies were reviewed during this office visit., Plain radiographs were taken in the past and were reviewed with the patient during the visit. ASSESSMENT: (M51.36) DDD (degenerative disc disease), lumbar (primary encounter diagnosis) (M47.816) Lumbar spondylosis PLAN: 1. Had history of GI bleed due to NSAIDS. Recommend a trial of flector patch. 2. Pain interventional procedure recommended: lumbar L4-5 epidural injection 3. Has tried oral NSAIDS was effective but has had GI bleed and reduced absorption from Flector is safer alternative. Signed Prescriptions Disp Refills diclofenac (FLECTOR) 1.3 % topical patch 30 Patch 1 Sig: Apply 1 Patch as directed once daily as needed. 4. Counseled patient regarding the importance of activity modification and exercise. 5. Follow up:3 months The above plan and management options were discussed with patient. The patient is in agreement with the above and verbalized understanding. I have discussed and confirmed the above treatment plan with the patient. and I have reviewed the nurses notes and I am aware of the family/social history. Zac Jo MD April 24, 2018 cc: Anthony Lovell MD [address] [facility] [id number] Results of consultation to be transmitted via electronic medical record for those providers who practice within [facility] or with access to [employer] via MD Connect, or via letter. Referring Provider: ANTHONY LOVELL [[id number]] Allergies As of Date: 04/24/2018 Noted Allergy Reaction LIPITOR (ATORVASTATIN CALCIUM) 01/13/2017 17 - Myalgia Comments: Caused Mental thoughts as well, per patient. NSAIDS (NON-STEROIDAL ANTI-INFLAM*04/13/2018 14 - Other: See Comments Comments: GI bleed Date Reviewed: 04/24/2018 Reviewed by: Selam Haider MA - Fully Assessed Reason for Visit: New Patient [172] Low Back Pain [126] Bilateral Leg Pain [Other] Primary Visit Diagnosis:DDD (degenerative disc disease), lumbar [M51.36] Other Visit Diagnosis:Lumbar spondylosis [M47.816] Order(s):diclofenac (FLECTOR) 1.3 % topical patchApply 1 Patch as directed once daily as needed.Disp: 30 PatchRfl: 1 EPI LUMBAR OR SACRAL W/IMAGING [[id number]] Order #: [id number] FUTURE Prescriptions as of 04/24/2018 Sig: TRAMADOL 50 MG TABLET Take 1 tablet by mouth every * TIZANIDINE 4 MG TABLET Take 1 tablet by mouth every * LOSARTAN 50 MG TABLET Take 1 tablet by mouth once d* METOPROLOL TARTRATE 25 MG TAB* Take 0.5 tablets by mouth twi* PANTOPRAZOLE 40 MG TABLET,DEL* Take 1 tablet by mouth daily * SUCRALFATE 1 GRAM TABLET Take 1 tablet by mouth before* ATORVASTATIN 40 MG TABLET Take 1 tablet by mouth daily * FLUOXETINE 40 MG CAPSULE Take 1 capsule by mouth once * LEVOTHYROXINE 125 MCG TABLET Take 1 tablet by mouth once d* COLCHICINE 0.6 MG TABLET Take 1 tablet by mouth once d* ALLOPURINOL 300 MG TABLET Take 1 tablet by mouth once d* IRBESARTAN 150 MG TABLET Take 1 tablet by mouth daily * COMPOUNDED PRESCRIPTION Osteo Biflex COMPOUNDED PRESCRIPTION Vitamin B6 DICLOFENAC EPOLAMINE 1.3 % TR* Apply 1 Patch as directed onc* Problem List As Of Date 04/24/2018 Noted Resolved Hypothyroidism [E03.9] INVALID FOR* BENIGN HYPERTENSION [I10] INVALID FOR* GOUT NOS [M10.9] INVALID FOR* OSTEITIS DEFORMANS NOS [M88.9] INVALID FOR* PERIPH VASCULAR DIS NOS [I73.9] INVALID FOR* Spinal Stenosis of Lumbar Region [M48.061] INVALID FOR* Perirectal abscess [K61.1] INVALID FOR*02/08/2012 Cellulitis of buttock, left [L03.317] INVALID FOR*08/16/2016 Elevated glucose [R73.09] INVALID FOR* Anemia, unspecified [D64.9] INVALID FOR* CKD (chronic kidney disease) Stage 3, GFR 30-59*INVALID FOR* Obesity, Class III, BMI 40-49.9 (morbid obesity*INVALID FOR* Ulcer of toe of left foot, limited to breakdown*INVALID FOR* Prescriptions ordered this encounter Disp Refills Start End DICLOFENAC EPOLAMINE 1.3 % TRANSDERM* 30 P* 1 04/24/2018 05/24/2018 Route: TRANSDERM. Sig: Apply 1 Patch as directed once daily as needed. Encounter Status:Closed by ZAC JO MD on 04/24/18 PROGRESS Observed: 04/24/2018 Status: COMPLETED Source: [place] 10:55 AM [facility] REPOSITORY HNO ID: [id number] Author: Zac Jo Service: (none) Author Type: Physician Type: Progress Notes Filed: 04/24/2018 1:38 PM Note Text: [facility] Pain Management Department Date: April 24, 2018 - 10:55 AM Nirmal Krueger is seen in consultation requested by Dr. Anthony Lovell for an opinion regarding chronic lower back and bilateral lower extremity pain. My final recommendations will be communicated back to the requesting physician by way of shared medical record or via US mail. Chief Complaint: lower back pain and bilateral lower extremity pain SUBJECTIVE: Nirmal Krueger, is a 82 year old year old with no significant past medical history, who presents with lower back pain and bilateral lower extremity pain. The pain started 15 years ago, following with no precipitating event. The patient states that the pain is worsening. His pain is located in the bilateral and middle lumbar region and radiates down the posterior leg. The pain is described as aching. The pain intensity is rated 8. The pain is exacerbated by activity, standing, walking, arising from a sitting position, lifting and twisting and relieved by medications - NSAIDs. Symptoms interfere with physical activity, work, walking and lifting. Obtained by Selam Haider MA by interview I have reviewed, confirmed and edited the preliminary information with the patient: In addition the patient reports no additional concerns. Litigation: No. Prior pain treatment has included no specific interventions. He had relief from the following interventions: None. ALLERGIES Allergen Reactions - Lipitor [Atorvastat* Myalgia Caused Mental thoughts as well, per patient. - Nsaids (Non-Steroid* Other: See Comments GI bleed Current Medications: Pain medications reviewed and reconciled in the medication list: Yes. Current Outpatient Prescriptions: traMADol (ULTRAM) 50 mg tablet Take 1 tablet by mouth every 6 hours as needed for Pain for up to 30 days. tiZANidine (ZANAFLEX) 4 mg tablet Take 1 tablet by mouth every 8 hours as needed (back pain). losartan (COZAAR) 50 mg tablet Take 1 tablet by mouth once daily. metoprolol tartrate, short acting, (LOPRESSOR) 25 mg tablet Take 0.5 tablets by mouth twice daily. pantoprazole DR (PROTONIX) 40 mg tablet Take 1 tablet by mouth daily before breakfast. Take on empty stomach, 1/2 hr before meal. sucralfate (CARAFATE) 1 gram tablet Take 1 tablet by mouth before meals and at bedtime. atorvastatin (LIPITOR) 40 mg tablet Take 1 tablet by mouth daily at bedtime. For cholesterol. FLUoxetine HCl (PROZAC) 40 mg capsule Take 1 capsule by mouth once daily. levothyroxine (SYNTHROID) 125 mcg tablet Take 1 tablet by mouth once daily. colchicine (COLCRYS) 0.6 mg tablet Take 1 tablet by mouth once daily. allopurinol (ZYLOPRIM) 300 mg tablet Take 1 tablet by mouth once daily. irbesartan (AVAPRO) 150 mg tablet Take 1 tablet by mouth daily at bedtime. COMPOUNDED PRESCRIPTION Osteo Biflex COMPOUNDED PRESCRIPTION Vitamin B6 diclofenac (FLECTOR) 1.3 % topical patch Apply 1 Patch as directed once daily as needed. No current facility-administered medications for this visit. 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 Quit 06/24/1981. (cigars) Drug Use: Not on file Employer And Job Title: None on file Years Of Education Completed: Not specified Marital Status: REVIEW OF SYSTEMS: Constitutional: (-) Fever (-) Night Sweats (-) Weight Gain (-) Weight Loss (-) Fatigue Cardiovascular: (-) Chest Pain (-) Palpitations (-) Lightheadedness (-) Swelling of Ankles (-) Hx Heart Surgery Respiratory: (-) Shortness of Breath (-) Cough (-) Wheezing (-) Snoring Gastrointestinal: (-) Incontinence (-) Abdominal Pain (-) Diarrhea (-) Constipation (-) Nausea/Vomiting (-) Heart Burn Endocrine: (-) Thyroid Disorder (-) Diabetes Hematologic: (-) Prolonged Bleeding (-) Easy Bruising Genitourinary: (-) Incontinence (-) Frequency (-) Urinary Urgency Skin: (-) Rashes (-) Itching (-) Other Lesions Neurologic: (-) Headache (-) Double Vision (-) Confusion (-) Paralysis (-) Vertigo (-) Syncope Psychiatric: (-) Depression (-) Anxiety (-) Delusions (-) Hallucinations (-) Suicidal Thoughts Selam Haider MA OAS Report reviewed: Yes Narcotic Agreement reviewed and signed?: N/A Baseline Urine Toxicology obtained: N/A Urine Panel: No results found for: UQCANN, UQBNZL, QEL5HLG, UQAMPH, UQMAMP, UQBUPRE, UQNORBUP, UQMTHD, UQEDDP, UQTRAM, UQDTRM, UQFNTL, UQNFTL, UQCODE, UQMORP, UQDCDN, UQHCOD, UQOXYC, UQHMOR, UQOXYM, UQCREA, UQPH, UQSPGR, UQOXID, UQSPQ The pain panel was N/A I have reviewed, confirmed and edited the preliminary information with the patient: OBJECTIVE: PHYSICAL EXAMINATION: Pulse 69 Wt 303 lb (137.4kg) SpO2 90% Performed in conjunction with observation. The patient was alert and oriented x3. The patient was in no acute distress. Lungs: Clear to auscultation. CVR: Regular Rate. Neck: Supple. The range of motion was intact. Spurling's: negative Back: Range of motion of the trunk was limited. SLR: equivocal Facet Loading: positive with axial loading and extension. SI joint: bilateral PSIS tenderness. negative Sacral thrust. Extremities: no reported edema or erythema. Motor: 5/5 and symmetric Sensory: intact to light touch and sharp Gait: slow, intact. Medical record and diagnostic tests reviewed for today's visit: The [facility] EMR was reviewed during the visit IMAGING STUDIES: No new imaging studies were reviewed during this office visit., Plain radiographs were taken in the past and were reviewed with the patient during the visit. ASSESSMENT: (M51.36) DDD (degenerative disc disease), lumbar (primary encounter diagnosis) (M47.816) Lumbar spondylosis PLAN: 1. Had history of GI bleed due to NSAIDS. Recommend a trial of flector patch. 2. Pain interventional procedure recommended: lumbar L4-5 epidural injection 3. Has tried oral NSAIDS was effective but has had GI bleed and reduced absorption from Flector is safer alternative. Signed Prescriptions Disp Refills diclofenac (FLECTOR) 1.3 % topical patch 30 Patch 1 Sig: Apply 1 Patch as directed once daily as needed. 4. Counseled patient regarding the importance of activity modification and exercise. 5. Follow up:3 months The above plan and management options were discussed with patient. The patient is in agreement with the above and verbalized understanding. I have discussed and confirmed the above treatment plan with the patient. and I have reviewed the nurses notes and I am aware of the family/social history. Zac Jo MD April 24, 2018 cc: Anthony Lovell MD [address] [facility] [id number] Results of consultation to be transmitted via electronic medical record for those providers who practice within [facility] or with access to [employer] via MD Connect, or via letter. CARDIOLOGY VISIT Observed: 04/21/2018 Status: F Source: [place] [facility] 10:14 AM [facility] REPOSITORY [facility] [address] [place] [address]. [address] [place] [address] OFFICE VISIT Date of Service: 04/21/18 MR#: [id number] Acct: [id number] Name: NIRMAL KRUEGER Rep #: [id number] : 1935 Provider: Zac Parker MD Age/Sex: 82/M Location: [facility] Status: Signed HPI HPI Details: NIRMAL KUREGER, is a 82 M who presents to the office today for outpatient hospital follow-up. The patient was evaluated in cardiovascular consultation on 03/28/2018 at [facility] for concerns of a non-ST segment elevation CO superimposed on hypertension, chronic renal insufficiency, a gastrointestinal bleeding process with associated anemia. He underwent noninvasive evaluation at that time which did include a transthoracic echocardiogram and a pharmacologic stress nuclear imaging study as he was not a candidate for diagnostic cardiac catheterization at that time based upon the inability to be placed on antiplatelet therapy/anticoagulant therapy based upon his gastrointestinal bleeding process and anemia pending further future follow-up GI evaluation/EGD results. He was eventually released home from the hospital and presents today for outpatient cardiovascular follow-up. He notes overall that he has not been having ongoing chest discomfort. He has an element of chronic shortness of breath/dyspnea which he does not believe has significantly changed. He has had no obvious acute orthopnea or PND or worsening peripheral pitting edema. There has been no near syncope or syncope. He has not required additional cardiovascular therapy since discharge. He is pending upcoming EGD next week for reassessment of his gastrointestinal bleeding process and whether or not he can initiate antiplatelet/anticoagulant therapy if need be and proceed for further evaluation with diagnostic cardiac catheterization. Intake Vital Signs04/21/18 Height 6 ft 2 in 04/21/18 Weight: 306 lb 04/21/18 Body Mass Index (BMI) 39.2 04/21/18 Blood Pressure 132/64 H 04/21/18 Blood Pressure Location Lt brachial Intake Visit Reasons: NSTEMI [employer] Required: No Accompanied by: Is patient in pain?: No Allergies No Known Allergies Allergy (Verified 04/21/18 09:18) Medications Multivitamin [Daily Multiple Vitamin] 1 ea PO DAILY 05/19/16 [History Confirmed 04/21/18] Meclizine HCl [Antivert] 12.5 mg PO TID PRN PRN #30 tab 12/03/16 [Rx Confirmed 04/21/18] Allopurinol [Zyloprim] 300 mg PO DAILY 03/28/18 [History Confirmed 04/21/18] Fluoxetine HCl 40 mg PO DAILY 03/28/18 [History Confirmed 04/21/18] Levothyroxine Sodium [Synthroid] 125 mcg PO DAILY 03/28/18 [History Confirmed 04/21/18] Losartan Potassium [Cozaar] 50 mg PO DAILY #30 tab 03/30/18 [Rx Confirmed 04/21/18] Metoprolol Tartrate [Lopressor (beta av)] 12.5 mg PO BID #60 tab 03/30/18 [Rx Confirmed 04/21/18] Pantoprazole Sodium [Protonix] 40 mg PO DAILY #30 tab 03/30/18 [Rx Confirmed 04/21/18] Sucralfate [Carafate] 1 gm PO 1HR_ACHS #90 tab 03/30/18 [Rx Confirmed 04/21/18] traMADol [Ultram] 50 mg PO TID PRN PRN #21 tab 03/30/18 [Rx Confirmed 04/21/18] PFSH Medical History Essential hypertension (Chronic) GI bleed (Acute) NSTEMI (non-ST elevated myocardial infarction) (Acute) Chronic renal insufficiency (Chronic) Macrocytic anemia (Acute) Morbid obesity with BMI of 40.0-44.9, adult (Chronic) Osteoarthritis (Chronic) Hypothyroidism (Chronic) Gout (Chronic) Hyperkalemia (Acute) Sepsis (Acute) CKD (chronic kidney disease) stage 3, GFR 30-59 ml/min (Chronic) Cellulitis (Acute) HTN (hypertension) (Inactive) Surgical History History of bilateral hip replacements (Resolved) S/P bilateral foot surgery (Resolved) Family History Father Cancer Lung Social History Smoking Status: Former smoker alcohol intake: never substance use type: does not use ROS Const Const: Negative for fatigue, weakness, night sweats, excessive sweating, frequent falls, headache(s) or daytime sleepiness Eyes Eyes: Negative for loss of peripheral vision, transient loss of vision, blind spots, double vision or blurry vision ENT ENT: Negative for headache(s), dizziness, balance problems, Nosebleed/epistaxis, tongue swelling or lip swelling Cardio Chest Pain: No Palpitations: No Edema: None Muscle aches with walking: None Resp Respiratory: Positive for SOB at rest and SOB with activity; negative for SOB orthopnea\SOB lying down, Cough or paroxysmal nocturnal dyspnea GI GI: Negative nausea, vomiting, heartburn, black,tarry stools or bright, red blood in stools : Negative for hematuria Musc Musc: Negative for balance problems, muscle aches/ myalgia, muscle weakness or joint pain Skin Skin: Negative non-healing lesions, unusual bruising or rash Neuro Neuro: Negative for weakness, frequent falls, headache(s), double vision, dizziness, lightheadedness, orthostatic symptoms, blurry vision or lack of coordination Saji Hematologic/Lymphatic: Negative for easy bruising or easy bleeding Endo Endo: Negative for fatigue, excessive sweating, cold intolerance, heat intolerance, increased thirst/drinking or hair loss Psych Psych: Negative for anxiety or depression Allergy Allergy/Immunology: Negative for throat swelling, Negative for tongue swelling, Negative for hives, Negative for rash, Negative for lip swelling Cardiology Exam Const Appearance: cooperative, healthy appearing, comfortable, no acute distress, well developed and well groomed Nutritional Appearance: obese Orientation: alert, awake and oriented x3 Head Head: normal to inspection, normocephalic and atraumatic Ears: hearing grossly normal bilaterally Nose: external nose normal Mouth: oral mucosae normal Teeth and gingiva: fair dentition Eyes Eyelids: eyelids normal Conjunctivae: conjunctivae normal Pupils: PERRL EOM: EOM intact bilaterally Neck Neck: normal visual inspection and full ROM Carotids: normal carotid upstroke Chest Chest inspection: normal inspection of the chest, symmetric chest movement and normal respiratory effort Auscultation: Bilateral: Clear to Auscultation Cardio Palpation: normal PMI Rhythm: regular rhythm Heart sounds: S1 normal and S2 normal GI GI: obese, normal to inspection, soft and bowel sounds present Neuro General: alert, awake and oriented x3 Skin Skin: no rashes or lesions noted Extremities Pulses: Normal: Right Radial Pulse, Left Radial Pulse Lower Extremity Edema: None: Bilateral Psych Psychological: normal affect Supplemental Info Transthoracic echocardiogram: 1113 2018 Interpretation Summary The study was technically difficult. Contrast injection was performed. Segmental dysfunction with preserved ejection fraction (see wall motion). The estimated ejection fraction is 60 %. Mild concentric left ventricular hypertrophy. The left atrium is mildly enlarged. Trivial mitral valve insufficiency. Mild tricuspid valve insufficiency. Aortic valve sclerosis / mild aortic valve stenosis. Trivial aortic valve insufficiency. Right ventricular systolic pressure estimated to be 50 mmHg. There is evidence of diastolic dysfunction. Stress test: 03/30/2018 The patient underwent pharmacologic (Regadenoson) evaluation with a peak heart rate of 107 beats per minute (76 predicted maximal heart rate) and a peak blood pressure of 120/60 mmHg. The baseline ECG demonstrated sinus bradycardia; poor R wave progression. The peak pharmacologic ECG demonstrated no obvious ECG changes. There was a rare PVC during recovery. There was no complaint of chest discomfort during pharmacologic infusion or recovery. The examination was discontinued secondary to completion of protocol. Impression: 1. Pharmacologic (Regadenoson) evaluation 2. Peak pharmacologic ECG with no obvious ECG changes. 3. There was a rare PVC during recovery. 4. Nuclear images pending Myocardial perfusion imaging study: Technique: The patient was injected with 13.6 millicuries of technetium 99m Cardiolite and subsequently rest SPECT Cardiolite nuclear imaging was obtained in the horizontal long, vertical long, and short axis views. The patient underwent pharmacologic (Regadenoson) evaluation with a peak heart rate of 107 beats per minute (76 % percent predicted maximal heart rate) and a peak blood pressure of 120/60 mmHg. The patient was injected with 44.8 millicuries of technetium 99m Cardiolite and subsequently stress SPECT Cardiolite nuclear imaging was obtained in the horizontal long, vertical long, and short axis views. A gated Cardiolite study at peak stress was obtained. Interpretation: Rest and stress SPECT Cardiolite nuclear imaging status post realignment, normalization, re-attenuation correction, and used attenuation correction demonstrate the pre-attenuation correction images an area of diminished to absence of myocardial perfusion/tracer uptake in portions of the basal inferolateral segments which extend toward the mid inferolateral segments which appear to be somewhat more prominent following stress as opposed to rest as well as post-stress demonstrating extension of this area into the distal inferolateral segments. This post attenuation correction there is subtle diminished tracer uptake in the mid to distal lateral and lateral apical segments which appear to be either somewhat more prominent at rest as opposed to stress or without significant change between rest and stress. There are similar type changes on the resting and stress polar map images. There is end systolic thickening and brightening. The gated Cardiolite study demonstrates myocardial thickening and inward wall motion. The reported LVEF is 55 %. Impression: 1. Rest and stress SPECT currently nuclear imaging demonstrate pre-attenuation correction areas of diminished absence of tracer uptake in portions of the basal inferolateral segments which extend toward the mid inferolateral segments which appear to be somewhat more prominent following stress as opposed to rest as well as post stress demonstrating extension of this area into the distal inferolateral segments. However status post attenuation correction there is subtle decreased tracer uptake in portions of the mid to distal lateral and lateral apical segments which either appear to be somewhat more prominent at rest as opposed to stress or without significant change between rest and stress. The aforementioned findings are concerning for an area of possible previous myocardial injury/infarction involving portions of the inferior lateral segments as well as potentially an area of post stress associated myocardial ischemia. 2. The gated Cardiolite study reports an LVEF of 55 %. Assessment AND Plan 1. Non-ST elevation CO (NSTEMI) I21.4 Plan At the present time he appears to be without any new acute symptoms. He will continue his current medical management. Following his EGD consideration will be given, if he is stable from a gastrointestinal standpoint, to proceed with antiplatelet therapy and subsequent diagnostic cardiac catheterization. 2. Essential hypertension I10 Plan He has blood pressure appears to be recently well controlled. He will continue medical management and follow-up 3. Hyperlipidemia, unspecified hyperlipidemia type E78.5 Plan He does have a history of hyperlipidemia. He will continue medical management and follow-up as deemed appropriate. Ideally this would include statin therapy. However he states that he has been on statins twice and he cannot tolerate them based upon changes in his mental status and changes in his musculoskeletal discomfort levels. Thus he may need to be considered for non-statin therapy of his lipid profile Plan Detail Additional Comments Thank you for allowing me to participate in the care of your patient. Please don't hesitate to call if any issues arise. This note was generated using a voice recognition system and there may be incorrect words, spelling or punctuation that were not noted when reviewing the office note prior to saving. Follow Up 3 Months (PFM) Coding Level of Care Code Off vis,est,level 3 Diagnoses Non-ST elevation CO (NSTEMI) I21.4 Essential hypertension I10 Hyperlipidemia, unspecified hyperlipidemia type E78.5 Hyperlipidemia type: unspecified Coding Level of Care Code Off vis,est,level 3 Diagnoses Non-ST elevation CO (NSTEMI) I21.4 Essential hypertension I10 Hyperlipidemia, unspecified hyperlipidemia type E78.5 Hyperlipidemia type: unspecified 04/21/18 1014 <Electronically signed by Zac Parker MD> Date Zac Diop Signature: Date (if applicable) CC: Anthony Lovell MD; Nola Rodgers MD 12 LEAD ELECTROCARDIOGRAM Observed: 04/14/2018 Status: F Source: [place] 9:10 [facility] Cardiovascular Services [address] [place] [address] 12 Lead EKG 03/28/18 1622 MR#: [id number] Acct: [id number] Name: NIRMAL KRUEGER Rep #: [id number] : 1935 82 From: Rui Manzanares MD Attending Dr: Juan Das Status: DIS IN Ordering Dr: Nakita Kumar MD Date: 03/28/18 Location: [facility] Sex: M C Admitted: 03/28/18 Test Reason : CP ADMISSION Blood Pressure : / mmHG Vent. Rate : 068 BPM Atrial Rate : 068 BPM P-R Int : 200 ms QRS Dur : 100 ms QT Int : 430 ms P-R-T Axes : 039 -34 005 degrees QTc Int : 457 ms Normal sinus rhythm Left axis deviation Low voltage QRS Abnormal ECG When compared with ECG of 28-MAR-2018 13:27, MANUAL COMPARISON REQUIRED, DATA IS UNCONFIRMED Confirmed by RUI AMNZANARES MD ([id number]), film editor supervisor ALEX LUCIO ([id number]) on 04/03/2018 2:06:49 PM Referred By: NURSE Confirmed By:RUI MANZANARES MD 04/03/18 1406 Date Rui Manzanares MD CC: Nakita Kumar MD; Juan Das; Antohny Lovell MD Signed 12 LEAD ELECTROCARDIOGRAM Observed: 04/14/2018 Status: F Source: [place] 9:09 AM [facility] Cardiovascular Services [address] [place] [address] 12 Lead EKG 03/29/18 0506 MR#: [id number] Acct: [id number] Name: NIRMAL KRUEGER Rep #: [id number] : 1935 82 From: Rui Manzanares MD Attending Dr: Juan Das Status: DIS IN Ordering Dr: Zac Parker MD Date: 03/29/18 Location: [facility] Sex: M C Admitted: 03/28/18 Test Reason : Blood Pressure : / mmHG Vent. Rate : 047 BPM Atrial Rate : 047 BPM P-R Int : 244 ms QRS Dur : 100 ms QT Int : 492 ms P-R-T Axes : 046 -29 017 degrees QTc Int : 435 ms Sinus bradycardia with 1st degree A-V block Otherwise normal ECG When compared with ECG of 28-MAR-2018 16:22, MANUAL COMPARISON REQUIRED, DATA IS UNCONFIRMED Confirmed by RUI MANZANARES MD ([id number]), film editor supervisor ALEX LUCIO ([id number]) on 04/03/2018 2:04:59 PM Referred By: Confirmed By:RUI MANZANARES MD 04/03/18 1405 Date Rui Manzanares MD CC: Juan Das; Anthony Lovell MD; Zac Parker MD Signed 12 LEAD ELECTROCARDIOGRAM Observed: 04/14/2018 Status: F Source: [place] 9:08 AM [facility] Cardiovascular Services [address] [place] [address] 12 Lead EKG 03/30/18 0500 MR#: [id number] Acct: [id number] Name: NIRMAL KRUEGER Rep #: [id number] : 1935 82 From: Rui Manzanares MD Attending Dr: Juan Das Status: DIS IN Ordering Dr: Zac Parker MD Date: 03/30/18 Location: [facility] Sex: M C Admitted: 03/28/18 Test Reason : AM EKG Blood Pressure : / mmHG Vent. Rate : 058 BPM Atrial Rate : 058 BPM P-R Int : 232 ms QRS Dur : 102 ms QT Int : 458 ms P-R-T Axes : 030 -37 029 degrees QTc Int : 449 ms Sinus bradycardia with 1st degree A-V block Left axis deviation Low voltage QRS Abnormal ECG No previous ECGs available Confirmed by RUI MANZANARES MD ([id number]), film editor supervisor ALEX LUCIO ([id number]) on 04/03/2018 1:46:47 PM Referred By: ADRIAN Confirmed By:RUI MANZANARES MD 04/03/18 1346 Date Rui Manzanares MD CC: Juan Das; Anthony Lovell MD; Zac Parker MD Signed CBC AND DIFFERENTIAL Collected: 04/13/2018 Status: F Source: [place] 11:00 AM [facility] [place] REPOSITORY TYPE CODE TESTS RESULT OUT OF REFERENCE UNITS RANGE LAB WBC 3.70-11.00 k/uL WBC 8.01 LAB RBC 4.20-6.00 m/uL RBC 3.25 Low LAB HGB 13.0-17.0 g/dL Hemoglobin 10.3 Low LAB HCT 39.0-51.0 % Hematocrit 33.0 Low LAB MCV 80.0-100.0 fL MCV 101.5 High LAB MCH 26.0-34.0 pG MCH 31.7 LAB MCHC 30.5-36.0 g/dL MCHC 31.2 LAB RDWCV 11.5-15.0 % RDW-CV 14.9 LAB PLTCT 150-400 k/uL Platelet Count 213 LAB MPV 9.0-12.7 fL MPV 10.7 LAB ANEUT % Neut% 80.7 LAB AANEUT 1.45-7.50 k/uL Abs Neut 6.46 LAB ALYMP % Lymph% 9.6 LAB AALYMP 1.00-4.00 k/uL Abs Lymph 0.77 Low LAB AMONO % Surry% 2.6 LAB AAMONO <0.87 k/uL Abs Surry 0.21 LAB AEOS % Eosin% 3.5 LAB AAEOS <0.46 k/uL Abs Eosin 0.28 LAB ABASO % Baso% 0.9 LAB AABASO <0.11 k/uL Abs Baso 0.07 LAB AMETA % [place]% 0.9 LAB AMYELO % Myelo% 0.9 LAB APROMY % Promyl% 0.9 LAB LFTIMI Left Shift Present LAB GNTPLW Giant Platelets Occasional LAB POLIMI Polychromasia Slight LAB RBCMOR Red Cell Morph SEE COMMENT Result Comment: Unremarkable LAB PLTEST Platelet Platelet Estimate estimate adequate LAB DTYP DTYPE Manual Diff Performed By: #### CBCDIF #### [facility] [address] [place], [place] [address] PROGRESS Observed: 04/13/2018 Status: COMPLETED Source: [place] 10:07 AM [facility] REPOSITORY HNO ID: [id number] Author: Anthony Lovell Service: (none) Author Type: Physician Type: Progress Notes Filed: 04/14/2018 7:18 PM Note Text: TRANSITION CARE MANAGEMENT (TCM) INITIAL CONTACT Table Games Floor Supervisor Outreach ? Provider Action/FYI: While in [facility] patient was prescribed Tramadol.. Says he is taking 3 pills per day and has 11 pills left. He is requesting another prescription to get him through until 04/13 office visit. Samuel Joseph. Please call when addressed. Pt notified via [employer] that Tramadol has been called into [facility] in [place]. ? 14 day TCM: GI bleed, NSTEMI (Acute). Pt went to [facility] ER on 03/28/18 c/o chest pains that began 4 days prior, at night while lying down. Pain would resolve when he sat up in his recliner. Complained of generalized weakness, diarrhea for 2 days, not sure if stool was black and tarry, did not look at the stool. The diarrhea resolved after taking Kaopectate. Pt was given aspirin when he arrived at ER. Pt had EKG, CXR which showed chornic changes. Labs were done, showed abnormal troponin level and Hemoglobin was 7.6. Pt was asked if he had source of blood loss, but denied any that he was aware of. Pt was started on Protonix IV and was given 2 units of blood. Pt was admitted on 03/28/[address] Nola Rodgers, which showed multiple localized, diminutive non-bleeding erosions in gastric body, no stigmata of recent bleeding. Biopsies were taken to check for H-pylori. Pt was advised to used Sucralfate 1 gram tablets BID, and protonix 40 mg, avoid aspirin, ibuprofen, naproxen, or any other anti-inflammatory drugs. Pt was discharged on 03/30/18 with order to have CBC labs rechecked in 1 week and to follow up with PCP in 1-2 weeks, follow up with cardiology in 2 weeks and follow up with Gen. Surgeon in 3 weeks for probable repeat upper EGD. Pt was started on Carafate 1 gm, Protonix 40, Lipitor 40 mg, Cozaar 50 mg, Lopressor 25 mg, half tablet BID (12.5 mg), and Tramadol for chronic back pain and arthritis. ? ? Initial contact with patient post discharge, spoke to patient. Patient identified by name and . ? TRANSITION CARE MANAGEMENT INITIAL OUTREACH DOCUMENTATION: No flowsheet data found. ? SUMMARY: -Pt discharged from [facility] on 03/30/18. -Admitted for: GI Bleed; NSTEMI ? Do you have a hospital follow up appointment with your PCP? Appointment on 04/13/18 with PCP. Yes. Remind patient of appointment date, time, and location. If not within 14 calendar days of discharge - please reschedule accordingly. ? MEDICATIONS: Many patients have questions or concerns about their medications once they are home. Were you prescribed any new medications? Yes; losartan, metoprolol; pantoprazole; sucralfate; tramadol; atorvastatin ? Were you told to hold any medications? If yes, what are those medications? Daypro; NSAIDS, ASA Were any of your medications discontinued? If yes, what are those medications? Daypro; irbesartan and NSAIDS ? Do you have any questions about getting or taking your medications? No ? Your discharge instructions/After visit Summary (AVS) are important in guiding you through the recovery process. Is there anything I might help you understand? No ? Do you have all the necessary equipment and supplies at home? Yes ? Medical records from recent hospitalization: Records on PCP's desk to review for upcoming appt. Chief Complaint Patient presents with: Hospital Follow Up: TCM 14 day - [facility] admission HPI Nirmal Krueger is a 82 year old male who presents here today for a hospital follow up - 14 day TCM. Pt here today with his for a hospital follow up. Overall he reports that he is feeling better and stools are now back to normal. Will have another scope done by General Surgeon, Dr. Rodgers in the next week or so. Will be following up with Dr. Parker in the next few weeks as well. Denies any chest pain or dizziness. Does have sob which is normal for him. Back pain - With discontinuing NSAID's medications his back pain is not as well controlled. Pain mostly located on his left lower side. Was prescribed Tramadol 50 mg 1 tab po every 6 hours (4 per day) with some relief in symptoms. Has tried Tylenol OTC with no pain relief. Has been referred to Pain Management, no appt made at the time due to being in the hospital and addressing other issues. Lipids - Continuing to try and lose weight, since d/c has lost 4 lbs. Past medical history, appointments, medications, allergies reviewed. 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 - Unspecified hypothyroidism Previous Surgical History PAST SURGICAL HISTORY Procedure Laterality Date - COLONOSCOP W/ OR W/O [facility] SPEC 06/2003 Colonoscopy - COLONOSCOP W/ OR W/O [facility] SPEC 07/04/08 - COLONOSCOP W/ OR W/O [facility] SPEC 07/05/2013 Colonoscopy - PAST SURGICAL HISTORY OF foot times 2 - PAST SURGICAL HISTORY OF BIlateral hip surgery Family History FAMILY HISTORY Problem Relation Age of Onset - Colon Cancer Father Patient Allergies ALLERGIES Allergen Reactions - Lipitor [Atorvastat* Myalgia Caused Mental thoughts as well, per patient. - Nsaids (Non-Steroid* Other: See Comments GI bleed Current Medications Current Outpatient Prescriptions on File Prior to Visit: traMADol (ULTRAM) 50 mg tablet Take 1 tablet by mouth every 6 hours as needed for Pain for up to 15 days. losartan (COZAAR) 50 mg tablet Take 1 tablet by mouth once daily. metoprolol tartrate, short acting, (LOPRESSOR) 25 mg tablet Take 0.5 tablets by mouth twice daily. pantoprazole DR (PROTONIX) 40 mg tablet Take 1 tablet by mouth daily before breakfast. Take on empty stomach, 1/2 hr before meal. sucralfate (CARAFATE) 1 gram tablet Take 1 tablet by mouth before meals and at bedtime. atorvastatin (LIPITOR) 40 mg tablet Take 1 tablet by mouth daily at bedtime. For cholesterol. FLUoxetine HCl (PROZAC) 40 mg capsule Take 1 capsule by mouth once daily. levothyroxine (SYNTHROID) 125 mcg tablet Take 1 tablet by mouth once daily. colchicine (COLCRYS) 0.6 mg tablet Take 1 tablet by mouth once daily. allopurinol (ZYLOPRIM) 300 mg tablet Take 1 tablet by mouth once daily. irbesartan (AVAPRO) 150 mg tablet Take 1 tablet by mouth daily at bedtime. COMPOUNDED PRESCRIPTION Osteo Biflex COMPOUNDED PRESCRIPTION Vitamin B6 No current facility-administered medications on file prior to visit. 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 EXAM: BP 110/58 (BP Site: Left Arm, BP Position: Sitting, BP Cuff Size: Regular Adult) Pulse (!) 58 Resp 16 Wt (!) 137.9 kg (304 lb) BMI 39.03 kg/m? General Appearance: Well appearing, alert, in no acute distress, well-hydrated, well nourished. and Obese. Lungs: lungs clear to auscultation. No wheezing, rhonchi, rales. Heart: RRR without murmur, gallop, or rubs. No ectopy. Health Maintenance List DIABETES SCREEN due on 04/10/2021 DTAP,TDAP,TD(2 - Td) due on 05/25/2021 ADULT PREVNAR-13 Completed INFLUENZA Completed PNEUMOVAX AGE 65 AND OVER WITH 5YR LOOKBACK Completed Data reviewed [facility] Records ASSESSMENT/PLAN: 1. Hospital discharge follow-up - ICD9: V67.59, ICD10: Z09 (primary diagnosis) - 1 mo f/u 2. GI bleed due to NSAIDs - ICD9: 578.9, E935.8, ICD10: K92.2, T39.395A - D/c all NSAIDS, able to use Tylenol if needed. - Stable and doing well on regimen. 3. Anemia, unspecified type - ICD9: 285.9, ICD10: D64.9 - Check CBC today 4. Spinal stenosis, lumbar region, without neurogenic claudication - ICD9: 724.02, ICD10: M48.061 Chronic low back pain - Cont Tramadol 50 mg 1 tab po QID - Adding Flexeril 10 mg 1 tab po 1 mo f/u to check on Anemia and Back pain I agree with the Chief Complaint, ROS, and Past Histories independently gathered by the clinical biomedical equipment support specialist and the remaining scribed note accurately describes my personal service to the patient. Anthony Lovell MD The documentation for this note was completed by Suzanne Leblanc Ma acting as scribe for Anthony Lovell MD. April 13, 2018 10:18 AM. CNOV Observed: 04/13/2018 Status: COMPLETED Source: [place] 10:00 AM [facility] REPOSITORY Office Visit (FAMPWS) NIRMAL KRUEGER ([id number]) 1935 M Date Time Provider Department 04/13/18 10:00 AM ANTHONY LOVELLWS During your visit today, we recorded the following information about you: Pulse Respiration Blood pressure Weight 58/minute 16/minute 110/58 137.9 kg Anthony Lovell MD 04/14/2018 7:18 PM Signed TRANSITION CARE MANAGEMENT (TCM) INITIAL CONTACT Table Games Floor Supervisor Outreach ? Provider Action/FYI: While in [facility] patient was prescribed Tramadol.. Says he is taking 3 pills per day and has 11 pills left. He is requesting another prescription to get him through until 04/13 office visit. Samuel Joseph. Please call when addressed. Pt notified via eunice that Tramadol has been called into [facility] in [place]. ? 14 day TCM: GI bleed, NSTEMI (Acute). Pt went to [facility] ER on 03/28/18 c/o chest pains that began 4 days prior, at night while lying down. Pain would resolve when he sat up in his recliner. Complained of generalized weakness, diarrhea for 2 days, not sure if stool was black and tarry, did not look at the stool. The diarrhea resolved after taking Kaopectate. Pt was given aspirin when he arrived at ER. Pt had EKG, CXR which showed chornic changes. Labs were done, showed abnormal troponin level and Hemoglobin was 7.6. Pt was asked if he had source of blood loss, but denied any that he was aware of. Pt was started on Protonix IV and was given 2 units of blood. Pt was admitted on 03/28/[address] Nola Rodgers, which showed multiple localized, diminutive non-bleeding erosions in gastric body, no stigmata of recent bleeding. Biopsies were taken to check for H-pylori. Pt was advised to used Sucralfate 1 gram tablets BID, and protonix 40 mg, avoid aspirin, ibuprofen, naproxen, or any other anti-inflammatory drugs. Pt was discharged on 03/30/18 with order to have CBC labs rechecked in 1 week and to follow up with PCP in 1-2 weeks, follow up with cardiology in 2 weeks and follow up with Gen. Surgeon in 3 weeks for probable repeat upper EGD. Pt was started on Carafate 1 gm, Protonix 40, Lipitor 40 mg, Cozaar 50 mg, Lopressor 25 mg, half tablet BID (12.5 mg), and Tramadol for chronic back pain and arthritis. ? ? Initial contact with patient post discharge, spoke to patient. Patient identified by name and . ? TRANSITION CARE MANAGEMENT INITIAL OUTREACH DOCUMENTATION: No flowsheet data found. ? SUMMARY: -Pt discharged from [facility] on 03/30/18. -Admitted for: GI Bleed; NSTEMI ? Do you have a hospital follow up appointment with your PCP? Appointment on 04/13/18 with PCP. Yes. Remind patient of appointment date, time, and location. If not within 14 calendar days of discharge - please reschedule accordingly. ? MEDICATIONS: Many patients have questions or concerns about their medications once they are home. Were you prescribed any new medications? Yes; losartan, metoprolol; pantoprazole; sucralfate; tramadol; atorvastatin ? Were you told to hold any medications? If yes, what are those medications? Daypro; NSAIDS, ASA Were any of your medications discontinued? If yes, what are those medications? Daypro; irbesartan and NSAIDS ? Do you have any questions about getting or taking your medications? No ? Your discharge instructions/After visit Summary (AVS) are important in guiding you through the recovery process. Is there anything I might help you understand? No ? Do you have all the necessary equipment and supplies at home? Yes ? Medical records from recent hospitalization: Records on PCP's desk to review for upcoming appt. Chief Complaint Patient presents with: Hospital Follow Up: TCM 14 day - [facility] admission HPI Nirmal Krueger is a 82 year old male who presents here today for a hospital follow up - 14 day TCM. Pt here today with his for a hospital follow up. Overall he reports that he is feeling better and stools are now back to normal. Will have another scope done by General Surgeon, Dr. Rodgers in the next week or so. Will be following up with Dr. Parker in the next few weeks as well. Denies any chest pain or dizziness. Does have sob which is normal for him. Back pain - With discontinuing NSAID's medications his back pain is not as well controlled. Pain mostly located on his left lower side. Was prescribed Tramadol 50 mg 1 tab po every 6 hours (4 per day) with some relief in symptoms. Has tried Tylenol OTC with no pain relief. Has been referred to Pain Management, no appt made at the time due to being in the hospital and addressing other issues. Lipids - Continuing to try and lose weight, since d/c has lost 4 lbs. Past medical history, appointments, medications, allergies reviewed. 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 - Unspecified hypothyroidism Previous Surgical History PAST SURGICAL HISTORY Procedure Laterality Date - COLONOSCOP W/ OR W/O [facility] SPEC 06/2003 Colonoscopy - COLONOSCOP W/ OR W/O [facility] SPEC 07/04/08 - COLONOSCOP W/ OR W/O [facility] SPEC 07/05/2013 Colonoscopy - PAST SURGICAL HISTORY OF foot times 2 - PAST SURGICAL HISTORY OF BIlateral hip surgery Family History FAMILY HISTORY Problem Relation Age of Onset - Colon Cancer Father Patient Allergies ALLERGIES Allergen Reactions - Lipitor [Atorvastat* Myalgia Caused Mental thoughts as well, per patient. - Nsaids (Non-Steroid* Other: See Comments GI bleed Current Medications Current Outpatient Prescriptions on File Prior to Visit: traMADol (ULTRAM) 50 mg tablet Take 1 tablet by mouth every 6 hours as needed for Pain for up to 15 days. losartan (COZAAR) 50 mg tablet Take 1 tablet by mouth once daily. metoprolol tartrate, short acting, (LOPRESSOR) 25 mg tablet Take 0.5 tablets by mouth twice daily. pantoprazole DR (PROTONIX) 40 mg tablet Take 1 tablet by mouth daily before breakfast. Take on empty stomach, 1/2 hr before meal. sucralfate (CARAFATE) 1 gram tablet Take 1 tablet by mouth before meals and at bedtime. atorvastatin (LIPITOR) 40 mg tablet Take 1 tablet by mouth daily at bedtime. For cholesterol. FLUoxetine HCl (PROZAC) 40 mg capsule Take 1 capsule by mouth once daily. levothyroxine (SYNTHROID) 125 mcg tablet Take 1 tablet by mouth once daily. colchicine (COLCRYS) 0.6 mg tablet Take 1 tablet by mouth once daily. allopurinol (ZYLOPRIM) 300 mg tablet Take 1 tablet by mouth once daily. irbesartan (AVAPRO) 150 mg tablet Take 1 tablet by mouth daily at bedtime. COMPOUNDED PRESCRIPTION Osteo Biflex COMPOUNDED PRESCRIPTION Vitamin B6 No current facility-administered medications on file prior to visit. 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 EXAM: BP 110/58 (BP Site: Left Arm, BP Position: Sitting, BP Cuff Size: Regular Adult) Pulse (!) 58 Resp 16 Wt (!) 137.9 kg (304 lb) BMI 39.03 kg/m? General Appearance: Well appearing, alert, in no acute distress, well-hydrated, well nourished. and Obese. Lungs: lungs clear to auscultation. No wheezing, rhonchi, rales. Heart: RRR without murmur, gallop, or rubs. No ectopy. Health Maintenance List DIABETES SCREEN due on 04/10/2021 DTAP,TDAP,TD(2 - Td) due on 05/25/2021 ADULT PREVNAR-13 Completed INFLUENZA Completed PNEUMOVAX AGE 65 AND OVER WITH 5YR LOOKBACK Completed Data reviewed [facility] Records ASSESSMENT/PLAN: 1. Hospital discharge follow-up - ICD9: V67.59, ICD10: Z09 (primary diagnosis) - 1 mo f/u 2. GI bleed due to NSAIDs - ICD9: 578.9, E935.8, ICD10: K92.2, T39.395A - D/c all NSAIDS, able to use Tylenol if needed. - Stable and doing well on regimen. 3. Anemia, unspecified type - ICD9: 285.9, ICD10: D64.9 - Check CBC today 4. Spinal stenosis, lumbar region, without neurogenic claudication - ICD9: 724.02, ICD10: M48.061 Chronic low back pain - Cont Tramadol 50 mg 1 tab po QID - Adding Flexeril 10 mg 1 tab po 1 mo f/u to check on Anemia and Back pain I agree with the Chief Complaint, ROS, and Past Histories independently gathered by the clinical biomedical equipment support specialist and the remaining scribed note accurately describes my personal service to the patient. Anthony Lovell MD The documentation for this note was completed by Suzanne Leblanc Ma acting as scribe for Anthony Lovell MD. April 13, 2018 10:18 AM. Referring Provider: SELF [[id number]] Allergies As of Date: 04/13/2018 Noted Allergy Reaction LIPITOR (ATORVASTATIN CALCIUM) 01/13/2017 17 - Myalgia Comments: Caused Mental thoughts as well, per patient. NSAIDS (NON-STEROIDAL ANTI-INFLAM*04/13/2018 14 - Other: See Comments Comments: GI bleed Date Reviewed: 04/13/2018 Reviewed by: Suzanne Leblanc Ma - Fully Assessed Reason for Visit: Hospital Follow Up [177] Cmt: TCM 14 day - [facility] admission Reason For Visit History Recorded Primary Visit Diagnosis:Hospital discharge follow-up [Z09] Other Visit Diagnoses:GI bleed due to NSAIDs [K92.2, T39.395A] Anemia, unspecified type [D64.9] Spinal stenosis, lumbar region, without neurogenic claudication [M48.061] Order(s):CBC + DIFF [SQCBCDIF] Order #: [id number] FUTURE CONSULT TO PAIN MGT ANESTHESIA [19990821] Order #: [id number]: 1 traMADol (ULTRAM) 50 mg tabletTake 1 tablet by mouth every 6 hours as needed for Pain for up to 30 days.Disp: 120 tabletRfl: 0 tiZANidine (ZANAFLEX) 4 mg tabletTake 1 tablet by mouth every 8 hours as needed (back pain).Disp: 30 tabletRfl: 2 Prescriptions as of 04/13/2018 Sig: TRAMADOL 50 MG TABLET Take 1 tablet by mouth every * LOSARTAN 50 MG TABLET Take 1 tablet by mouth once d* METOPROLOL TARTRATE 25 MG TAB* Take 0.5 tablets by mouth twi* PANTOPRAZOLE 40 MG TABLET,DEL* Take 1 tablet by mouth daily * SUCRALFATE 1 GRAM TABLET Take 1 tablet by mouth before* ATORVASTATIN 40 MG TABLET Take 1 tablet by mouth daily * FLUOXETINE 40 MG CAPSULE Take 1 capsule by mouth once * LEVOTHYROXINE 125 MCG TABLET Take 1 tablet by mouth once d* COLCHICINE 0.6 MG TABLET Take 1 tablet by mouth once d* ALLOPURINOL 300 MG TABLET Take 1 tablet by mouth once d* IRBESARTAN 150 MG TABLET Take 1 tablet by mouth daily * COMPOUNDED PRESCRIPTION Osteo Biflex COMPOUNDED PRESCRIPTION Vitamin B6 TIZANIDINE 4 MG TABLET Take 1 tablet by mouth every * Medication notes this encounter OXAPROZIN 600 MG TABLET >> Suzanne Leblanc Ma 04/13/2018 10:03 AM discontinued due to GI bleed Problem List As Of Date 04/13/2018 Noted Resolved Hypothyroidism [E03.9] INVALID FOR* BENIGN HYPERTENSION [I10] INVALID FOR* GOUT NOS [M10.9] INVALID FOR* OSTEITIS DEFORMANS NOS [M88.9] INVALID FOR* PERIPH VASCULAR DIS NOS [I73.9] INVALID FOR* Spinal Stenosis of Lumbar Region [M48.061] INVALID FOR* Perirectal abscess [K61.1] INVALID FOR*02/08/2012 Cellulitis of buttock, left [L03.317] INVALID FOR*08/16/2016 Elevated glucose [R73.09] INVALID FOR* Anemia, unspecified [D64.9] INVALID FOR* CKD (chronic kidney disease) Stage 3, GFR 30-59*INVALID FOR* Obesity, Class III, BMI 40-49.9 (morbid obesity*INVALID FOR* Ulcer of toe of left foot, limited to breakdown*INVALID FOR* Prescriptions ordered this encounter Disp Refills Start End TRAMADOL 50 MG TABLET 120 * 0 04/13/2018 05/13/2018 Class: Print RX Route: ORAL Sig: Take 1 tablet by mouth every 6 hours as needed for Pain for up to 30 days. TIZANIDINE 4 MG TABLET 30 t* 2 04/13/2018 Route: ORAL Sig: Take 1 tablet by mouth every 8 hours as needed (back pain). Medications Discontinued During This Encounter oxaprozin (DAYPRO) 600 mg tablet 180 * 1 03/22/2018 04/13/2018 Route: ORAL Sig: Take 2 tablets by mouth once daily. Disc: Other traMADol (ULTRAM) 50 mg tablet 45 t* 0 04/03/2018 04/13/2018 Class: Call Rx Route: ORAL Sig: Take 1 tablet by mouth every 6 hours as needed for Pain for up to 15 days. Disc: Reason for discontinue is not on file. Disposition: Return in about 4 weeks (around 05/11/2018). Follow-up and Disposition History Recorded Encounter Status:Closed by ANTHONY LOVELL MD on 04/14/18 COMP METABOLIC PANEL Collected: 04/10/2018 Status: F Source: [place] 8:53 AM [facility] REPOSITORY TYPE CODE TESTS RESULT OUT OF REFERENCE UNITS RANGE LAB TP 6.3-8.0 g/dL Protein, Total 6.8 LAB ALB 3.9-4.9 g/dL Low Albumin 3.6 LAB CA 8.5-10.2 mg/dL Calcium, Total 9.6 LAB TBIL 0.2-1.3 mg/dL Bilirubin, Total 0.3 LAB ALKP 38-113 U/L Alkaline Phosphatase 61 LAB AST 14-40 U/L AST 24 LAB GLU 74-99 mg/dL Glucose High 133 Result Comment: The [place] Diabetes Association (ADA) provides guidance for cutoff values for fasting glucose and random glucose. The ADA defines fasting as no caloric intake for at least 8 hours. Fas ting plasma glucose results between 100 to 125 mg/dL indicate increased risk for diabetes (prediabetes). Fasting plasma glucose results greater than or equal to 126 mg/dL meet the criteria for diagnosis of diabetes. In the absence of unequivocal hyperglycemia, results should be confirmed by repeat testing. In a patient with classic symptoms of hyperglycemia or hyperglycemic crisis, random plasma glucose results greater than or equal to 200 mg/dL meet the criteria for diagnosis of diabetes. Reference: Standards of Medical Care in Diabetes 2016, [place] Diabetes Association. Diabetes Care. 2016.39(Suppl 1). LAB BUN 9-24 mg/dL BUN High 34 LAB CRET 0.73-1.22 mg/dL Creatinine High 1.70 LAB NA 136-144 mmol/L Sodium 141 LAB K 3.7-5.1 mmol/L Potassium 4.7 LAB CL 97-105 mmol/L Chloride High 107 LAB CO2 22-30 mmol/L Low CO2 20 LAB AGAP 9-18 mmol/L Anion Gap 14 LAB ALT 10-54 U/L ALT 18 LAB GFRAA eGFR- Amer. 47 LAB GFRNAA . eGFR-All Other Races 39 Result Comment: eGFR (Estimated GFR) Units of measure: mL/min/1.73 meters squared eGFR is derived from the reexpressed MDRD Study equation using the following parameters: serum creatinine, age, gender and race. The creatinine assay has been calibrated to be traceable to IDMS. An eGFR <60 mL/min/1.73m2 for >3 months is consistent with chronic kidney disease. Refer to KDOQI guidelines for clinical interpretation. In patients with unstable renal function, e.g. those with acute kidney injury, the eGFR may not accurately reflect actual GFR. Performed By: #### CMP, LIPB, TSH, HBA1C #### [facility] [address] [place], [place] [address] LIPID PANEL, BASIC Collected: 04/10/2018 Status: F Source: [place] 8:53 AM [facility] REPOSITORY TYPE CODE TESTS RESULT OUT OF REFERENCE UNITS RANGE LAB CHOL <200 mg/dL Cholesterol 184 Result Comment: <200 mg/dL, Desirable 200-239 mg/dL, Borderline high >239 mg/dL, High LAB TRIGLY <150 mg/dL Triglyceride 94 Result Comment: <150 mg/dL, Normal 150-199 mg/dL, Borderline high 200-499 mg/dL, High >499 mg/dL, Very high LAB HDL >39 mg/dL HDL-Cholesterol Low 36 Result Comment: 40-59 mg/dL, Acceptable >59 mg/dL, High: Negative risk factor for coronary heart disease <40 mg/dL, Low: Positive risk factor for coronary heart disease LAB LDL <100 mg/dL LDL-Cholesterol High 129 Result Comment: <100 mg/dL, Optimal 100-129 mg/dL, Near optimal/above optimal 130-159 mg/dL, Borderline high 160-189 mg/dL, High >189 mg/dL, Very high Secondary prevention optimal LDL Cholesterol levels are recommended to be < 70 mg/dL LAB NONHDL <130 mg/dL Non HDL High Cholesterol 148 Result Comment: <130 mg/dL, Optimal 130-159 mg/dL, Near optimal/above optimal 160-189 mg/dL, Borderline high 190-219 mg/dL, High >219 mg/dL, Very high Secondary prevention optimal non HDL Cholesterol levels are recommended to be < 100 mg/dL LAB FT hrs Fasting Time 10 LAB VLDL <30 mg/dL VLDL Cholesterol 19 LAB TCHDL <5.10 High TC:HDL Ratio 5.11 LAB LDLHDL <2.54 High LDL:HDL Ratio 3.58 Result Comment: Reference: 1. National Cholesterol Education Program ATP III Guideline At-A-Glance Quick Desk Reference: National Heart, Lung, and Blood [place]. National Institutes of Health. 2001: NIH Publication No. 01-3305. 2. An International Atherosclerosis Society position paper: global recommendations for the management of dyslipidemia: executive summary, Atherosclerosis. 2014: 232(2):410-413. Performed By: #### CMP, LIPB, TSH, HBA1C #### [facility] [address] [place] [address] TSH Collected: 04/10/2018 Status: F Source: [place] 8:53 AM [facility] REPOSITORY TYPE CODE TESTS RESULT OUT OF RANGE REFERENCE UNITS LAB TSH 0.400-5.500 uU/mL TSH 4.150 Performed By: #### CMP, LIPB, TSH, HBA1C #### [facility] [address] [address] HEMOGLOBIN A1C Collected: 04/10/2018 Status: F Source: [place] 8:53 AM [facility] REPOSITORY TYPE CODE TESTS RESULT OUT OF REFERENCE UNITS RANGE LAB HGBA1C 4.3-5.6 % Hemoglobin A1c 5.5 Result Comment: [place] Diabetes Association guidelines indicate that patients with HgbA1c in the range 5.7-6.4% are at increased risk for development of diabetes, and intervention by lifestyle modification may be beneficial. HgbA1c greater or equal to 6.5% is considered diagnostic of diabetes. LAB HBA0 mg/dL Est. Average Glucose 111 Result Comment: eAG: (Estimated average glucose) is a calculated value from HgbA1c and is merchandiser retail representative of the average blood glucose level in the last 2-3 month period. Performed By: #### CMP, LIPB, TSH, HBA1C #### [facility] [address] [address] PROGRESS Observed: 04/03/2018 Status: COMPLETED Source: [place] 12:15 PM [facility] REPOSITORY HNO ID: [id number] Author: Patricia Amos Ma Service: (none) Author Type: (none) Type: Progress Notes Filed: 04/03/2018 1:05 PM Note Text: The following prescriptions have been called to [facility] pharmacy 04/03/2018 at 12:15 PM by Patricia Amos Ma. I spoke with Mamadou in the pharmacy. Signed Prescriptions Disp Refills traMADol (ULTRAM) 50 mg tablet 45 tablet 0 Sig: Take 1 tablet by mouth every 6 hours as needed for Pain for up to 15 days. OSIEL Class: C-IV PROGRESS Observed: 04/03/2018 Status: COMPLETED Source: [place] 11:56 AM [facility] REPOSITORY HNO ID: [id number] Author: Anthony Lovell Service: (none) Author Type: Physician Type: Progress Notes Filed: 04/03/2018 1:05 PM Note Text: Noted OK for tramadol to call in as ordered Anthony Lovell MD PROGRESS Observed: 04/03/2018 Status: COMPLETED Source: [place] 11:21 AM [facility] REPOSITORY HNO ID: [id number] Author: Patricia Amos Ma Service: (none) Author Type: (none) Type: Progress Notes Filed: 04/03/2018 1:05 PM Note Text: TRANSITION CARE MANAGEMENT (TCM) INITIAL CONTACT Table Games Floor Supervisor Outreach Provider Action/FYI: While in [facility] patient was prescribed Tramadol.. Says he is taking 3 pills per day and has 11 pills left. He is requesting another prescription to get him through until 04/13 office visit. Samuel Anthonyeve. Please call when addressed. Pt notified via [employer] that Tramadol has been called into [facility] in [place]. 14 day TCM: GI bleed, NSTEMI (Acute). Pt went to [facility] ER on 03/28/18 c/o chest pains that began 4 days prior, at night while lying down. Pain would resolve when he sat up in his recliner. Complained of generalized weakness, diarrhea for 2 days, not sure if stool was black and tarry, did not look at the stool. The diarrhea resolved after taking Kaopectate. Pt was given aspirin when he arrived at ER. Pt had EKG, CXR which showed chornic changes. Labs were done, showed abnormal troponin level and Hemoglobin was 7.6. Pt was asked if he had source of blood loss, but denied any that he was aware of. Pt was started on Protonix IV and was given 2 units of blood. Pt was admitted on 03/28/[address] Nola Rodgers, which showed multiple localized, diminutive non-bleeding erosions in gastric body, no stigmata of recent bleeding. Biopsies were taken to check for H-pylori. Pt was advised to used Sucralfate 1 gram tablets BID, and protonix 40 mg, avoid aspirin, ibuprofen, naproxen, or any other anti-inflammatory drugs. Pt was discharged on 03/30/18 with order to have CBC labs rechecked in 1 week and to follow up with PCP in 1-2 weeks, follow up with cardiology in 2 weeks and follow up with Gen. Surgeon in 3 weeks for probable repeat upper EGD. Pt was started on Carafate 1 gm, Protonix 40, Lipitor 40 mg, Cozaar 50 mg, Lopressor 25 mg, half tablet BID (12.5 mg), and Tramadol for chronic back pain and arthritis. Initial contact with patient post discharge, spoke to patient. Patient identified by name and . TRANSITION CARE MANAGEMENT INITIAL OUTREACH DOCUMENTATION: No flowsheet data found. SUMMARY: -Pt discharged from [facility] on 03/30/18. -Admitted for: GI Bleed; NSTEMI Do you have a hospital follow up appointment with your PCP? Appointment on 04/13/18 with PCP. Yes. Remind patient of appointment date, time, and location. If not within 14 calendar days of discharge - please reschedule accordingly. MEDICATIONS: Many patients have questions or concerns about their medications once they are home. Were you prescribed any new medications? Yes; losartan, metoprolol; pantoprazole; sucralfate; tramadol; atorvastatin Were you told to hold any medications? If yes, what are those medications? Daypro; NSAIDS, ASA Were any of your medications discontinued? If yes, what are those medications? Daypro; irbesartan Do you have any questions about getting or taking your medications? No Your discharge instructions/After visit Summary (AVS) are important in guiding you through the recovery process. Is there anything I might help you understand? No Do you have all the necessary equipment and supplies at home? Yes Medical records from recent hospitalization: Records on PCP's desk to review for upcoming apptMeir LUNA Observed: 04/03/2018 Status: COMPLETED Source: [place] 12:00 AM [facility] REPOSITORY Patient Outreach (FAMPWS) NIRMAL KRUEGER ([id number]) 1935 M Date Time Provider Department 04/03/18 ANTHONY LOVELL FAMPWS During your visit today, we recorded the following information about you: Patricia Amos Ma 04/03/2018 1:05 PM Signed TRANSITION CARE MANAGEMENT (TCM) INITIAL CONTACT Table Games Floor Supervisor Outreach Provider Action/FYI: While in [facility] patient was prescribed Tramadol.. Says he is taking 3 pills per day and has 11 pills left. He is requesting another prescription to get him through until 04/13 office visit. Samuel Joseph. Please call when addressed. Pt notified via [employer] that Tramadol has been called into [facility] in [place]. 14 day TCM: GI bleed, NSTEMI (Acute). Pt went to [facility] ER on 03/28/18 c/o chest pains that began 4 days prior, at night while lying down. Pain would resolve when he sat up in his recliner. Complained of generalized weakness, diarrhea for 2 days, not sure if stool was black and tarry, did not look at the stool. The diarrhea resolved after taking Kaopectate. Pt was given aspirin when he arrived at ER. Pt had EKG, CXR which showed chornic changes. Labs were done, showed abnormal troponin level and Hemoglobin was 7.6. Pt was asked if he had source of blood loss, but denied any that he was aware of. Pt was started on Protonix IV and was given 2 units of blood. Pt was admitted on 03/28/[address] Nola Rodgers, which showed multiple localized, diminutive non-bleeding erosions in gastric body, no stigmata of recent bleeding. Biopsies were taken to check for H-pylori. Pt was advised to used Sucralfate 1 gram tablets BID, and protonix 40 mg, avoid aspirin, ibuprofen, naproxen, or any other anti-inflammatory drugs. Pt was discharged on 03/30/18 with order to have CBC labs rechecked in 1 week and to follow up with PCP in 1-2 weeks, follow up with cardiology in 2 weeks and follow up with Gen. Surgeon in 3 weeks for probable repeat upper EGD. Pt was started on Carafate 1 gm, Protonix 40, Lipitor 40 mg, Cozaar 50 mg, Lopressor 25 mg, half tablet BID (12.5 mg), and Tramadol for chronic back pain and arthritis. Initial contact with patient post discharge, spoke to patient. Patient identified by name and . TRANSITION CARE MANAGEMENT INITIAL OUTREACH DOCUMENTATION: No flowsheet data found. SUMMARY: -Pt discharged from [facility] on 03/30/18. -Admitted for: GI Bleed; NSTEMI Do you have a hospital follow up appointment with your PCP? Appointment on 04/13/18 with PCP. Yes. Remind patient of appointment date, time, and location. If not within 14 calendar days of discharge - please reschedule accordingly. MEDICATIONS: Many patients have questions or concerns about their medications once they are home. Were you prescribed any new medications? Yes; losartan, metoprolol; pantoprazole; sucralfate; tramadol; atorvastatin Were you told to hold any medications? If yes, what are those medications? Daypro; NSAIDS, ASA Were any of your medications discontinued? If yes, what are those medications? Daypro; irbesartan Do you have any questions about getting or taking your medications? No Your discharge instructions/After visit Summary (AVS) are important in guiding you through the recovery process. Is there anything I might help you understand? No Do you have all the necessary equipment and supplies at home? Yes Medical records from recent hospitalization: Records on PCP's desk to review for upcoming appt. Anthony Lovell MD 04/03/2018 1:05 PM Signed Noted OK for tramadol to call in as ordered MD Patricia Murillo Ma 04/03/2018 1:05 PM Signed The following prescriptions have been called to [facility] pharmacy 04/03/2018 at 12:15 PM by Patricia Amos Ma. I spoke with Mamadou in the pharmacy. Signed Prescriptions Disp Refills traMADol (ULTRAM) 50 mg tablet 45 tablet 0 Sig: Take 1 tablet by mouth every 6 hours as needed for Pain for up to 15 days. OSIEL Class: C-IV Allergies As of Date: 04/03/2018 Noted Allergy Reaction LIPITOR (ATORVASTATIN CALCIUM) 01/13/2017 17 - Myalgia Comments: Caused Mental thoughts as well, per patient. Date Reviewed: 03/22/2018 Reviewed by: Suzanne Leblanc Ma - Fully Assessed Reason for Visit: Transition Of Care [4074] Primary Visit Diagnosis:Spinal stenosis, lumbar region, without neurogenic claudication [M48.061] Order(s):traMADol (ULTRAM) 50 mg tabletTake 1 tablet by mouth every 6 hours as needed for Pain for up to 15 days.Disp: 45 tabletRfl: 0 Prescriptions as of 04/03/2018 Sig: TRAMADOL 50 MG TABLET Take 1 tablet by mouth every * LOSARTAN 50 MG TABLET Take 1 tablet by mouth once d* METOPROLOL TARTRATE 25 MG TAB* Take 0.5 tablets by mouth twi* PANTOPRAZOLE 40 MG TABLET,DEL* Take 1 tablet by mouth daily * SUCRALFATE 1 GRAM TABLET Take 1 tablet by mouth before* FLUOXETINE 40 MG CAPSULE Take 1 capsule by mouth once * LEVOTHYROXINE 125 MCG TABLET Take 1 tablet by mouth once d* ALLOPURINOL 300 MG TABLET Take 1 tablet by mouth once d* ATORVASTATIN 40 MG TABLET Take 1 tablet by mouth daily * OXAPROZIN 600 MG TABLET Take 2 tablets by mouth once * COLCHICINE 0.6 MG TABLET Take 1 tablet by mouth once d* IRBESARTAN 150 MG TABLET Take 1 tablet by mouth daily * COMPOUNDED PRESCRIPTION Osteo Biflex COMPOUNDED PRESCRIPTION Vitamin B6 Problem List As Of Date 04/03/2018 Noted Resolved Hypothyroidism [E03.9] INVALID FOR* BENIGN HYPERTENSION [I10] INVALID FOR* GOUT NOS [M10.9] INVALID FOR* OSTEITIS DEFORMANS NOS [M88.9] INVALID FOR* PERIPH VASCULAR DIS NOS [I73.9] INVALID FOR* Spinal Stenosis of Lumbar Region [M48.061] INVALID FOR* Perirectal abscess [K61.1] INVALID FOR*02/08/2012 Cellulitis of buttock, left [L03.317] INVALID FOR*08/16/2016 Elevated glucose [R73.09] INVALID FOR* Anemia, unspecified [D64.9] INVALID FOR* CKD (chronic kidney disease) Stage 3, GFR 30-59*INVALID FOR* Obesity, Class III, BMI 40-49.9 (morbid obesity*INVALID FOR* Ulcer of toe of left foot, limited to breakdown*INVALID FOR* Prescriptions ordered this encounter Disp Refills Start End TRAMADOL 50 MG TABLET 45 t* 0 04/03/2018 04/18/2018 Class: Call Rx Route: ORAL Sig: Take 1 tablet by mouth every 6 hours as needed for Pain for up to 15 days. Encounter Status:Closed by PATRICIA AMOS MA on 04/03/18 12 LEAD ELECTROCARDIOGRAM Observed: 03/31/2018 Status: F Source: [place] 2:48 PM [facility] Cardiovascular Services [address] [place] [address] 12 Lead EKG 03/28/18 1327 MR#: [id number] Acct: [id number] Name: NIRMAL KRUEGER Rep #: [id number] : 1935 82 From: Rui Manzanares MD Attending Dr: Juan Das Status: DIS IN Ordering Dr: Mehrdad Valdez MD Date: 03/28/18 Location: [facility] Sex: M C Admitted: 03/28/18 Test Reason : Blood Pressure : / mmHG Vent. Rate : 065 BPM Atrial Rate : 065 BPM P-R Int : 202 ms QRS Dur : 102 ms QT Int : 420 ms P-R-T Axes : 031 -34 016 degrees QTc Int : 436 ms Normal sinus rhythm with sinus arrhythmia Left axis deviation Abnormal ECG Confirmed by RUI MANZANARES MD ([id number]), film editor supervisor ALEX LUCIO ([id number]) on 03/31/2018 2:48:25 PM Referred By: EMERALD Confirmed By:RUI MANZANARES MD 03/31/18 1448 Date Rui Manzanares MD CC: Juan Das; Anthony Lovell MD; Mehrdad Valdez MD Signed DISCHARGE SUMMARY Observed: 03/30/2018 Status: F Source: [place] 2:53 PM [facility] Medical Records Department [address] [place] [id number] Discharge Summary 03/30/18 1412 MR#: [id number] Acct: [id number] Name: NIRMAL KRUEGER Rep #: [id number] : 1935 82 From: Fernie WELSH PCP: Anthony Lovell MD Status: ADM IN Y Location: [place] [id number] <Fernie Booth - Last Filed: 03/30/18 14:14> Discharge Date and Diagnosis - Problem List Patient Problems: Active and Suspected Problems GI bleed (Acute) NSTEMI (non-ST elevated myocardial infarction) (Acute) Date of Admission: 03/28/18 Date of Discharge: 03/30/18 - Primary Discharge Diagnosis Active and Suspected Problems GI bleed (Acute) presumed upper 2/2 erosive gastritis NSTEMI (non-ST elevated myocardial infarction) (Acute) Acute blood loss anemia 2/2 GI bleed CKDIII HTN Chronic back pain Hypothyroidism Gout Morbid obesity - Secondary Discharge Diagnosis Chronic Problems Chronic renal insufficiency (Chronic) Morbid obesity with BMI of 40.0-44.9, adult (Chronic) Osteoarthritis (Chronic) Hypothyroidism (Chronic) Gout (Chronic) HTN (hypertension) (Chronic) CKD (chronic kidney disease) stage 3, GFR 30-59 ml/min (Chronic) Hospital Course and Treatment Imaging Results: 03/30/18 05:55 Nuclear Stress Test - Chemical [NM] AM (NON MEDS) Impression: 1. Rest and stress SPECT currently nuclear imaging demonstrate pre-attenuation correction areas of diminished absence of tracer uptake in portions of the basal inferolateral segments which extend toward the mid inferolateral segments which appear to be somewhat more prominent following stress as opposed to rest as well as post stress demonstrating extension of this area into the distal inferolateral segments. However status post attenuation correction there is subtle decreased tracer uptake in portions of the mid to distal lateral and lateral apical segments which either appear to be somewhat more prominent at rest as opposed to stress or without significant change between rest and stress. The aforementioned findings are concerning for an area of possible previous myocardial injury/infarction involving portions of the inferior lateral segments as well as potentially an area of post stress associated myocardial ischemia. 2. The gated Cardiolite study reports an LVEF of 55 %. RAD/Chest 1 View (Portable) IMPRESSION: Scattered calcified granulomas. Hyperinflation. Prominence of the pulmonary hilar arteries. Echo: Segmental dysfunction with preserved ejection fraction (see wall motion). The estimated ejection fraction is 60 %. Mild concentric left ventricular hypertrophy. The left atrium is mildly enlarged. Trivial mitral valve insufficiency. Mild tricuspid valve insufficiency. Aortic valve sclerosis / mild aortic valve stenosis. Trivial aortic valve insufficiency. Right ventricular systolic pressure estimated to be 50 mmHg. There is evidence of diastolic dysfunction. Consults: [place] - Gen Surg [place] - Cardiology Operations: None Procedures: 2-D Echocardiogram, EGD, Stress test Summary of Care Provided: Hospital course: The patient is a 82 year old M with past medical history of chronic back pain for which he is taking large doses of Daypro and ibuprofen and aspirin, history of hypothyroidism, gout, hyperlipidemia, who presented to the emergency room with fatigue, chest pain. He is found to have elevated troponin of 1.210 and significant anemia at 7.6. He had positive Hemoccult stool and was presumed to have a GI bleed. General surgery and cardiology were consulted for non-STEMI and acute blood loss anemia secondary to GI bleed. He underwent an EGD with Dr. Rodgers and was found to have erosive gastritis. This is felt to be secondary to his chronic NSAID use. Echocardiogram was obtained which demonstrated findings as above. Stress test was obtained and was equivocal. Cardiology felt that he would need to undergo a cardiac catheterization as an outpatient after he would be able to be started on antiplatelet agents. This is not an option at this time given his GI bleed. He was placed on Protonix 40 twice daily and Carafate. He will need to follow-up with Dr. mehran stafford in 3 weeks and will undergo a repeat EGD in 3-4 weeks. After that point he may be able to have a cardiac catheterization. He will follow up with Dr. Parker in 1-2 as an outpatient to arrange for this. He was discharged home in stable condition. He cannot have aspirin or Plavix, however he will be discharged on losartan, atorvastatin, and metoprolol. Please also follow-up with your PCP in 1-2 weeks. This patient was seen by Fernie Booth PA-C under the supervision of Doctor Das. [] Patient Problems: Active and Suspected Problems GI bleed (Acute) NSTEMI (non-ST elevated myocardial infarction) (Acute) - Physical Exam General: Alert, Oriented x3, Cooperative HEENT: Atraumatic, PERRLA, EOMI, Normocephalic Neck: Supple, No JVD, Negative Carotid Bruits Lungs: Clear to auscultation, Normal air movement Cardiovascular: Regular rate, No murmurs Abdomen: Bowel Sounds Present, Soft, Non Tender, Obese Extremities: No edema, Capillary Refill Less than 3 Seconds Skin: No rashes, No breakdown Musculoskeletal: No Tenderness to Palpation of Joints or Extremities Neurological: Cranial nerves II-XII grossly intact Psych/Mental Status: Normal Affect, Appropriate, Alert and oriented to time, place, person, mood and affect Vital Signs Temp Pulse Resp BP Pulse Ox 98.2 F 62 18 116/62 97 03/30/18 11:12 03/30/18 11:27 03/30/18 11:12 03/30/18 11:15 03/30/18 11:12 Oxygen Delivery Method Room Air Weight: 310 lb 6.574 oz Body Mass Index (BMI) 39.2 Finger Stick Blood Glucose 119 Intake and Output for Last 24 Hours Intake Total 713 / 713 3275.6 / 3275.6 240 / 240 Output Total 1949 / 1949 1125 / 1125 Balance 713 / 713 1325.6 / 1325.6 -885 / -885 Microbiology Past 72 Hours 03/29/18 16:00 Stool Occult Blood (SEBASTIEN) - Final Stool Occult Blood Positive Laboratory Tests Past 24 Hrs WBC 8.9 RBC 2.72 L Hgb 8.6 L Hct 27.3 L MCV 100.4 H MCH 31.6 Discharge Diet: Low fat/ Low Cholesterol, 2000 mg Sodium Diet Discharge Activity: Return to Normal Activity Home Medications: Medications to take at Discharge Multivitamin [Daily Multiple Vitamin] 1 each PO DAILY 05/19/16 Meclizine HCl [Antivert] 12.5 mg PO TID PRN PRN #30 tablet 12/03/16 Allopurinol [Zyloprim] 300 mg PO DAILY 03/28/18 Fluoxetine HCl 40 mg PO DAILY 03/28/18 Levothyroxine Sodium [Synthroid] 125 mcg PO DAILY 03/28/18 Acetaminophen [Tylenol Tablet] 650 mg PO Q6H PRN PRN tablet 03/30/18 Atorvastatin Calcium [Lipitor] 40 mg PO QHS #30 tablet 03/30/18 Losartan Potassium [Cozaar] 50 mg PO DAILY #30 tablet 03/30/18 Metoprolol Tartrate [Lopressor (beta av)] 12.5 mg PO BID #60 tablet 03/30/18 Pantoprazole Sodium [Protonix] 40 mg PO BID #60 tablet 03/30/18 Pantoprazole Sodium [Protonix] 40 mg PO DAILY #30 tablet 03/30/18 Sucralfate [Carafate] 1 gm PO 1HR_ACHS #90 tablet 03/30/18 traMADol [Ultram] 50 mg PO TID PRN PRN #21 tablet 03/30/18 Following Prescrptions Were Given to Patient: Atorvastatin Calcium [Lipitor] 40 mg PO QHS #30 tablet Losartan Potassium [Cozaar] 50 mg PO DAILY #30 tablet Metoprolol Tartrate [Lopressor (beta av)] 12.5 mg PO BID #60 tablet Pantoprazole Sodium [Protonix] 40 mg PO DAILY #30 tablet Pantoprazole Sodium [Protonix] 40 mg PO BID #60 tablet Sucralfate [Carafate] 1 gm PO 1HR_ACHS #90 tablet traMADol [Ultram] 50 mg PO TID PRN PRN #21 tablet PRN Reason: Moderate Pain (4-5/10) Other Amb Orders: CBC-Complete Blood Cnt No Diff Time Frame: 1 Week, Location: Laboratory Primary Care Physician: Anthony Lovell MD [Primary Care Provider] - Please follow up with your Primary Care Physician in: 1-2 weeks Please Follow Up With: Zac Parker MD When: 2 weeks Please Follow Up With: Nola Rodgers MD When: 3 weeks Disposition: Home Minutes spent on discharge:: 40 Patient Condition:: Stable Medical Necessity - Tobacco Use Smoking Status: Former smoker Tobacco Use: Cigarettes, Cigars, Pipe Meaningful Use Info Meaningful Use Diagnoses (Choose all that apply): AMI - AMI Aspirin given w/in 24hrs of arrival?: No Reason no aspirin w/in 24hrs of arrival?: GI bleed ASA at discharge?: No Reason ASA not ordered:: Drug Interaction Statins at discharge?: Yes Dio/ARB at discharge?: Yes Beta Av at discharge?: Yes Done w/ Acute CO measure.: Yes <Juan Das E - Last Filed: 03/30/18 14:53> Discharge Date and Diagnosis - Primary Discharge Diagnosis Active and Suspected Problems GI bleed (Acute) NSTEMI (non-ST elevated myocardial infarction) (Acute) - Secondary Discharge Diagnosis Chronic Problems Chronic renal insufficiency (Chronic) Morbid obesity with BMI of 40.0-44.9, adult (Chronic) Osteoarthritis (Chronic) Hypothyroidism (Chronic) Gout (Chronic) HTN (hypertension) (Chronic) CKD (chronic kidney disease) stage 3, GFR 30-59 ml/min (Chronic) Hospital Course and Treatment Imaging Results: 03/30/18 05:55 Nuclear Stress Test - Chemical [NM] AM (NON MEDS) Summary of Care Provided: Hospitalist note: Discharge summary above reviewed and I agree with above discharge and treatment plan. Patient was admitted for weakness, fatigue and chest pain and he was found to have acute severe blood loss anemia secondary to GI bleed as well as acute non-ST elevation CO. On admission, patient was found to have hemoglobin of 7.6 g/dL. Patient stated that he has been using high-dose aspirin as well as multiple doses of ibuprofen every day for the last 3 months for arthritis and back pain. He received a total of 2 units of packed RBCs and his hemoglobin was 8.6 g/dL upon discharge. His platelet count, pro time and INR were normal. General surgery consulted and patient underwent upper EGD that revealed nonbleeding erosive gastropathy and gastritis, biopsies taken and were pending at the time of discharge. Patient was treated with IV Protonix drip and IV fluids as well as blood transfusion. On admission, patient complained of chest pain and he was found to have acute non-ST elevation CO. His troponin was elevated. 2D echocardiogram reviewed and revealed normal ejection fraction. Cardiology consulted and recommended nuclear stress test that was performed and revealed findings concerning for area of possible previous myocardial injury/infarction involving portions of the inferior lateral segment and potentially an area of stress associated myocardial ischemia. Cardiology recommended medical treatment at this time and cardiac catheterization in the near future after treatment for gastritis and erosive gastropathy that led to GI bleed and anemia. After blood transfusion, patient symptoms improved and he had no more weakness of dizzy spells. His vital signs remained stable. He was started on Protonix and Carafate. Patient discharged home in a stable medical condition, discharged on Protonix for 1 month, discharged on Carafate for 3 weeks, discharged on statins, losartan and metoprolol, no aspirin prescribed, order given to repeat CBC in 1 week, follow-up with PCP in 1-2 weeks, follow- up with cardiology in 2 weeks and follow-up with general surgery in 3 weeks for probable repeat upper EGD. Patient was started on tramadol for chronic back pain and arthritis, I recommended to avoid aspirin and NSAIDs at this time. - Physical Exam General: Alert, Oriented x3, Cooperative, No apparent distress. HEENT: Atraumatic, PERRLA, EOMI. Neck: Supple, No JVD, Negative Carotid Bruits, Trachea Midline, Thyroid Normal. Lungs: Clear to auscultation, Normal air movement, No rhonchi, No wheeze, No rales. Cardiovascular: Regular rate, Regular Rhythm, Normal S1, Normal S2, PMI Normal. Abdomen: Bowel Sounds Present, Soft, Non Tender, Non-Distended, No Hepato-splenomegaly. Extremities: No clubbing, No cyanosis, No edema Skin: No rashes, No breakdown Neurological: Neuro grossly intact Vital Signs stable. This note was generated with [email or web address] dictation software. It may contain incorrect words, spelling, and punctuation that were not noted in checking the note before signing. - Physical Exam Vital Signs Temp Pulse Resp BP Pulse Ox 98.2 F 62 18 116/62 97 03/30/18 11:12 03/30/18 11:27 03/30/18 11:12 03/30/18 11:15 03/30/18 11:12 Oxygen Delivery Method Room Air Weight: 310 lb 6.574 oz Body Mass Index (BMI) 39.2 Finger Stick Blood Glucose 119 Intake and Output for Last 24 Hours Intake Total 713 / 713 3275.6 / 3275.6 240 / 240 Output Total 1950 / 1950 1125 / 1125 Balance 713 / 713 1325.6 / 1325.6 -885 / -885 Microbiology Past 72 Hours 03/29/18 16:00 Stool Occult Blood (SEBASTIEN) - Final Stool Occult Blood Positive Laboratory Tests Past 24 Hrs WBC 8.9 RBC 2.72 L Hgb 8.6 L Hct 27.3 L MCV 100.4 H MCH 31.6 Minutes spent on discharge:: 36 Patient Condition:: Stable Meaningful Use Info Meaningful Use Diagnoses (Choose all that apply): AMI - AMI Aspirin given w/in 24hrs of arrival?: No Reason no aspirin w/in 24hrs of arrival?: GI bleed ASA at discharge?: No Reason ASA not ordered:: Drug Interaction Statins at discharge?: Yes Dio/ARB at discharge?: Yes Beta Av at discharge?: Yes Done w/ Acute CO measure.: Yes Code Visit Inpatient E AND M: [id number] Disch Hosp 03/30/18 1422 <Electronically signed by Fernie WELSH> Date Fernie WELSH 03/30/18 1453<Electronically signed by Juan Das MD> Cosigner Signature (if applicable): Date Juan Das MD CC: BLAISE Booth; Juan Das; Anthony Lovell MD; Zac Parker MD; Nola Rodgers MD Signed DISCHARGE INSTRUCTION Observed: 03/30/2018 Status: F Source: [place] 1:40 PM [facility] Medical Records Department [address] [place] [address] Instructions for Home/Discharge Instructions 03/30/18 1335 MR#: [id number] Acct: [id number] Name: NIRMAL KRUEGER Rep #: [id number] : 1935 82 From: Fernie WELSH PCP: Anthony Lovell MD Status: ADM IN - Discharge Diagnoses Current Active Problems: Current Active and Chronic Problems GI bleed (Acute) NSTEMI (non-ST elevated myocardial infarction) (Acute) Chronic renal insufficiency (Chronic) You will use the following diet at home:: Cardiac Your food should be the consistency of: Regular Your liquids should be the consistency of: Regular/Thin Discharge Activity: Return to Normal Activity Additional Instructions: No NSAIDS. Allergies/Adverse Reactions: Allergies No Known Allergies Allergy (Verified 05/19/16 03:11) Medications to take at Discharge Multivitamin [Daily Multiple Vitamin] 1 each PO DAILY 05/19/16 Meclizine HCl [Antivert] 12.5 mg PO TID PRN PRN #30 tablet 12/03/16 Allopurinol [Zyloprim] 300 mg PO DAILY 03/28/18 Fluoxetine HCl 40 mg PO DAILY 03/28/18 Levothyroxine Sodium [Synthroid] 125 mcg PO DAILY 03/28/18 Acetaminophen [Tylenol Tablet] 650 mg PO Q6H PRN PRN tablet 03/30/18 Atorvastatin Calcium [Lipitor] 40 mg PO QHS #30 tablet 03/30/18 Losartan Potassium [Cozaar] 50 mg PO DAILY #30 tablet 03/30/18 Metoprolol Tartrate [Lopressor (beta av)] 12.5 mg PO BID #60 tablet 03/30/18 Pantoprazole Sodium [Protonix] 40 mg PO BID #60 tablet 03/30/18 Pantoprazole Sodium [Protonix] 40 mg PO DAILY #30 tablet 03/30/18 Sucralfate [Carafate] 1 gm PO 1HR_ACHS #90 tablet 03/30/18 traMADol [Ultram] 50 mg PO TID PRN PRN #21 tablet 03/30/18 The following prescriptions were given: Atorvastatin Calcium [Lipitor] 40 mg PO QHS #30 tablet Losartan Potassium [Cozaar] 50 mg PO DAILY #30 tablet Metoprolol Tartrate [Lopressor (beta av)] 12.5 mg PO BID #60 tablet Pantoprazole Sodium [Protonix] 40 mg PO DAILY #30 tablet Sucralfate [Carafate] 1 gm PO 1HR_ACHS #90 tablet traMADol [Ultram] 50 mg PO TID PRN PRN #21 tablet PRN Reason: Moderate Pain (4-5/10) Orders to be completed after discharge: CBC-Complete Blood Cnt No Diff Time Frame: 1 Week, Location: Laboratory Primary Care Physician: Anthony Lovell MD [Primary Care Provider] - Please follow up with your Primary Care Physician in: 1-2 weeks Test Results: Test results from this visit will be discussed in further detail at your follow-up appointment, if applicable. Please Follow Up With: Zac Parker MD When: 2 weeks Please Follow Up With: Nola Rodgers MD When: 3 weeks Proposed Discharge Date: 03/30/18 03/30/18 1340 <Electronically signed by Fernie WELSH> Date Fernie WELSH CC: Anthony Lovell MD; Zac Parker MD; Nola Rodgers MD STRESS REPORT Observed: 03/30/2018 Status: F Source: [place] 11:43 AM [facility] [place] [address] MR#: [id number] Acct: [id number] Name: NIRMAL KRUEGER Rep #: [id number] : 1935 82 From: Zac Parker MD Primary Care: Anthony Lovell MD Status: ADM IN Ordering Dr: Sex: M C Stress Test Report Date: 11/27/2017 Procedure: Pharmacologic stress nuclear imaging study Indications: Chest pain; abnormal cardiac enzymes; anemia secondary to GI bleed Consent: Per the patient Procedure: The patient underwent pharmacologic (Regadenoson) evaluation with a peak heart rate of 107 beats per minute (76 predicted maximal heart rate) and a peak blood pressure of 120/60 mmHg. The baseline ECG demonstrated sinus bradycardia; poor R wave progression. The peak pharmacologic ECG demonstrated no obvious ECG changes. There was a rare PVC during recovery. There was no complaint of chest discomfort during pharmacologic infusion or recovery. The examination was discontinued secondary to completion of protocol. Impression: 1. Pharmacologic (Regadenoson) evaluation 2. Peak pharmacologic ECG with no obvious ECG changes. 3. There was a rare PVC during recovery. 4. Nuclear images pending Myocardial perfusion imaging study: Technique: The patient was injected with 13.6 millicuries of technetium 99m Cardiolite and subsequently rest SPECT Cardiolite nuclear imaging was obtained in the horizontal long, vertical long, and short axis views. The patient underwent pharmacologic (Regadenoson) evaluation with a peak heart rate of 107 beats per minute (76 % percent predicted maximal heart rate) and a peak blood pressure of 120/60 mmHg. The patient was injected with 44.8 millicuries of technetium 99m Cardiolite and subsequently stress SPECT Cardiolite nuclear imaging was obtained in the horizontal long, vertical long, and short axis views. A gated Cardiolite study at peak stress was obtained. Interpretation: Rest and stress SPECT Cardiolite nuclear imaging status post realignment, normalization, re-attenuation correction, and used attenuation correction demonstrate the pre-attenuation correction images an area of diminished to absence of myocardial perfusion/tracer uptake in portions of the basal inferolateral segments which extend toward the mid inferolateral segments which appear to be somewhat more prominent following stress as opposed to rest as well as post-stress demonstrating extension of this area into the distal inferolateral segments. This post attenuation correction there is subtle diminished tracer uptake in the mid to distal lateral and lateral apical segments which appear to be either somewhat more prominent at rest as opposed to stress or without significant change between rest and stress. There are similar type changes on the resting and stress polar map images. There is end systolic thickening and brightening. The gated Cardiolite study demonstrates myocardial thickening and inward wall motion. The reported LVEF is 55 %. Impression: 1. Rest and stress SPECT currently nuclear imaging demonstrate pre-attenuation correction areas of diminished absence of tracer uptake in portions of the basal inferolateral segments which extend toward the mid inferolateral segments which appear to be somewhat more prominent following stress as opposed to rest as well as post stress demonstrating extension of this area into the distal inferolateral segments. However status post attenuation correction there is subtle decreased tracer uptake in portions of the mid to distal lateral and lateral apical segments which either appear to be somewhat more prominent at rest as opposed to stress or without significant change between rest and stress. The aforementioned findings are concerning for an area of possible previous myocardial injury/infarction involving portions of the inferior lateral segments as well as potentially an area of post stress associated myocardial ischemia. 2. The gated Cardiolite study reports an LVEF of 55 %. This note was generated with [employer] software. It may contain incorrect words, spelling, and punctuation that were not noted in checking the note before signing. 03/30/18 1143 <Electronically signed by Zac Parker MD> Date Zac Parker MD CC: Juan Das; Anthony Lovell MD Date Dictated: 03/30/18 1130 Date Transcribed: 03/30/181129 Tap And Die Maker Technician: PM Signed BASIC METABOLIC Collected: 03/30/2018 Status: F Source: [place] PROFILE (BMP) 5:10 AM [facility] REPOSITORY TYPE CODE TESTS RESULT OUT OF RANGE REFERENCE UNITS LAB L501.0100 74-106 mg/dL Normal GLU 104 Result Comment: Fasting Glucose result from 100 to 125 mg/dL suggests IMPAIRED HOMEOSTASIS per A.D.A. criteria. Please note revised GLUCOSE reference range effective 2017. LAB L501.1000 7-18 mg/dL High BUN 34 LAB L501.1100 0.70-1.30 mg/dL High CREAT,SERUM 1.57 Result Comment: The validity of the calculated GFR AND GFRAA in patients over 70 years has not been determined. Clinical correlation is essential. LAB L501.1110 >60 mL/min Low EST GFR 45 Result Comment: Non- GFR Calc LAB L501.1115 >60 mL/min Low EST GFR - AA 55 Result Comment: GFR Calc LAB L501.1255 ml/min Normal Estimated CRCL 42.90 LAB L501.1300 10-20 RATIO High BUN/CRE 21.7 LAB L501.2200 8.5-10 mg/dL Normal .1 CA 8.5 LAB L501.5300 136-14 mmol/L Normal 5 NA 143 LAB L501.5600 3.5-5. mmol/L Normal 1 K 4.9 LAB L501.5900 98-107 mmol/L High CL 115 LAB L501.6100 21.0-3 mmol/L Low 2.0 CO2 19.0 LAB L501.6200 5-15 Normal GAP 9 Performed By: #### L500.2500 #### [facility] [address] [place], [address] CBC W/DIFF, AUTOMATED Collected: 03/30/2018 Status: C Source: [place] 5:10 AM [facility] REPOSITORY TYPE CODE TESTS RESULT OUT OF RANGE REFERENCE UNITS LAB L100.1000 4.4-11.0 K/mm3 Normal WBC 8.9 LAB L100.1200 4.6-6.2 M/mm3 Low RBC 2.72 LAB L100.1300 13.0-16.5 g/dl Low HGB 8.6 LAB L100.1400 40-54 % Low HCT 27.3 LAB L100.1500 80-94 fL High MCV 100.4 LAB L100.1600 27.0-32.0 pg Normal MCH 31.6 LAB L100.1700 32-36 g/gl Low MCHC 31.5 LAB L100.1810 11.6-14.6 % High RDW CV 16.7 LAB L100.1820 35.1-43.9 fl High RDW SD 58.0 LAB L100.1900 150-450 K/mm3 Normal PLT 166 LAB L100.2000 6.2-12.0 fl Normal MPV 9.8 LAB L100.3100 MANUAL DIFF Normal CELLS COUNTED 100 LAB L100.3200 47-70 % High 81 SEGS LAB L100.3300 0-5 % 1 Normal BAND LAB L100.3400 0-1 % 1 Normal META LAB L100.3800 19-41 % Low 9 LYMPH LAB L100.3900 0-10 % 4 Normal MONOCYTE LAB L100.4000 0-5 % 3 Normal EOS LAB L100.4200 % 1 Normal PLASMA CELL LAB L100.5500 ADEQ Normal PLT EST ADEQUATE LAB L100.7000 NORM C AND C NORMAL Normal RED CELL MORPH NORM C+C LAB L100.2620 2.0-7.7 X10 3/uL Normal Absolute Neut 7.2 LAB L100.2720 0.83-4.51 X10 3/ul Low Absolute Lymph 0.80 LAB L100.9900 Normal PATH REV Reviewed Result Comment: Neutrophilic left shift. Macrocytic anemia. Clinical correlation necessary. Loy Junior M.D. 03/31/18 Pathologist comment added AMENDED REPORT 03/31/18 1006 PATH REV previously reported as: September Performed By: #### L100.0100 #### [facility] [address] [place], [place], [address] PROTHROMBIN TIME W/INR Collected: 03/30/2018 Status: F Source: [place] 5:10 AM [facility] REPOSITORY TYPE CODE TESTS RESULT OUT OF RANGE REFERENCE UNITS LAB L300.4150 11.7-14.9 SECONDS High PROTIME 15.4 LAB L300.4200 Normal INR 1.2 Performed By: #### L300.3900, L300.4310 #### [facility] [address] [place], [address] PARTIAL THROMBOPLAST Collected: 03/30/2018 Status: F Source: [place] TIME 5:10 AM [facility] REPOSITORY TYPE CODE TESTS RESULT OUT OF RANGE REFERENCE UNITS LAB L300.4310 24.1-36.2 Seconds Normal PTT 29.2 Performed By: #### L300.3900, L300.4310 #### [facility] [address] [place], [address] Observed: 03/29/2018 Status: F Source: [place] STOOL OCCULT BLOOD 4:00 PM [facility] REPOSITORY STOB iFOB Normal Reference Range = Negative CRITICAL VALUE VERIFIED. CALLED TO AYDEN MERINO 03/29/18 Radha Vazquez. RESULTS READ BACK BY AYDEN . Occult Blood Positive ORGANISM 1: OCCULT BLOOD POSITIVE Performed By: #### M100.7900 #### [facility] [address] [place], [address] CONSULTATION Observed: 03/29/2018 Status: F Source: [place] 2:43 PM [facility] Medical Records Department [address] [place] [address] Consultation 03/28/18 1729 MR#: [id number] Acct: [id number] Name: NIRMAL KRUEGER Rep #: [id number] : 1935 82 From: Nola Rodgers MD PCP: Anthony Lovell MD Status: ADM IN Y Location: [place] [address] Reason for Consult Date of Consultation: 03/28/18 History of Present Illness: The patient is a 82 year old M presented to the ER due to chest pain. Patient states for the last 3-4 nights when he lays down he would have chest pain and last night was the worst. He got up and went to his recliner it lasted for about 15-20 minutes, patient also admits shortness of breath during this chest pain.. He has had a history of pleurisy which was greater than 10 years ago. Patient also admits that on Tuesday he had some diarrhea did take care of peptic x2 which resolved his diarrhea however he did have some black stool and his last bowel movement today was normal formed but black in color. Patient has been taking 2 ibuprofen with breakfast a total of 400 mg then Daypro which is another NSAID x2 at lunch and 2 extra strength aspirin at dinner for his back pain. Admit for the last 2 months he has had a decreased appetite but he does admit to eating 3 meals a day still just less at each meal. Patient denies ever having EGD in the past but admits to having a colonoscopy about 2-[address] Saleh and states it was negative. Denies any abdominal pain. Past Medical History Past Medical History (Chronic Problems): Chronic Problems Chronic renal insufficiency (Chronic) Morbid obesity with BMI of 40.0-44.9, adult (Chronic) Osteoarthritis (Chronic) Hypothyroidism (Chronic) Gout (Chronic) HTN (hypertension) (Chronic) CKD (chronic kidney disease) stage 3, GFR 30-59 ml/min (Chronic) Allergies No Known Allergies Allergy (Verified 05/19/16 03:11) Home Medications: Ambulatory Orders Medication Instructions Recorded RX: Multivitamin [Daily Multiple 1 each PO DAILY 05/19/16 Vitamin] RX: Aspirin 650 mg PO DAILY 12/02/16 Surgical History: total hip arthroplasty, - - Bilateral total hip repair, bilateral foot surgeries. Psychiatric History: No pertinent psych hx Lives: Spouse/ Significant Other Smoking Status: Former smoker Tobacco Use: Cigarettes, Cigars, Pipe - *Family History Maternal History Items: No pertinent history Paternal History Items: Cancer - Tobacco user, lung cancer diagnosis. Review of Systems Constitutional: Denies: Anorexia, Chills, Fever HEENT: Denies: Difficulty Swallowing Cardiovascular: Denies: Chest Pain - Currently denies Respiratory: Denies: Shortness of Breath Gastrointestinal: Denies: Abdominal Pain, Nausea, Vomiting Musculoskeletal: Reports: Back Pain Psychiatric: Denies: Anxiety Hematologic/ Lymphatic: Denies: Easy Bruising, Easy Bleeding Patient Problems: Active and Suspected Problems GI bleed (Acute) NSTEMI (non-ST elevated myocardial infarction) (Acute) - Physical Exam General: Alert, Oriented x3, Cooperative, No apparent distress HEENT: Atraumatic Lungs: Normal air movement Cardiovascular: Regular rate Abdomen: Soft, Non Tender - No peritoneal signs, Non-Distended Extremities: No clubbing, No cyanosis Neurological: Cranial nerves II-XII grossly intact Psych/Mental Status: Normal Affect Vital Signs Temp Pulse Resp BP Pulse Ox 97.8 F 57 L 20 H 141/67 H 97 03/28/18 16:13 03/28/18 16:13 03/28/18 16:13 03/28/18 16:14 03/28/18 16:13 Oxygen Delivery Method Room Air Weight: 305 lb 5.443 oz Body Mass Index (BMI) 39.2 Finger Stick Blood Glucose 119 Laboratory Tests Past 24 Hrs WBC 13.4 H RBC 2.38 L WBC RBC Hgb Hct MCV MCH MCHC RDW RDW Differential Plt Count Assessment/Plan All Active Problems GI bleed (Acute) NSTEMI (non-ST elevated myocardial infarction) (Acute) Macrocytic anemia (Acute) Hyperkalemia (Acute) Sepsis (Acute) Cellulitis (Acute) 82-year-old male with anemia, melena, elevated troponins 1. Patient is on clears until midnight and n.p.o., patient is getting 2 units packed red blood cells current hemoglobin was 7.6, continue PPI drip. I have offered the patient EGD for evaluation if anesthesia is okay with his elevated troponin which in talking to the hospitalist cardiology believes it may be a demand ischemia due to the anemia. I have explained the risks/benefits of the procedure and described the procedure. I have discussed the risks with the patient, including but not limited to: infection, bleeding, perforation of the GI tract requiring emergency surgery, inability to complete the procedure, injury to any internal organs, complications of anesthesia, etc. - the patient understands and agrees to proceed. I have answered all the patient's questions to the patient's satisfaction and the patient has no further questions. Nola Rodgers M.D. Pager: [phone] [facility] [address] [place] [address] [address] [place] [address] Office: [phone] Code Visit Inpatient E AND M: 48338 Init Hosp L1 03/29/18 1443 <Electronically signed by Nola Rodgers MD> Date Nola Rodgers MD Cosigner Signature (if applicable): Date CC: Anthony Lovell MD; Zac Parker MD; Nola Rodgers MD Signed ECHO, COMPLETE W/ Observed: 03/29/2018 Status: F Source: [place] CONTRAST 12:41 PM [facility] [address] [place] [address] Echo Complete W/ Contrast 03/29/18 0901 MR#: [id number] Acct: [id number] Name: NIRMAL KRUEGER Rep #: [id number] : 1935 82 From: Zac Parker MD Attending Dr: Juan Das Status: ADM IN Ordering Dr: Nakita Kumar MD Date: 03/28/18 Location: [facility] Sex: M C Admitted: 03/28/18 Reason For Study: CHEST PAIN Procedure This was a 2D Doppler, Color Flow transthoracic echocardiogram. Techncially difficult . Pt was unable to stay awake to work with breathing for improved imaging. Poor parasternal windows. The study was technically difficult. Contrast injection was performed. Exam performed portable in patient room. Left Ventricle Normal LV size. Mild concentric left ventricular hypertrophy. Segmental dysfunction with preserved ejection fraction (see wall motion). The estimated ejection fraction is 60 %. There is evidence of diastolic dysfunction. Infero-Basal: Hypokinetic. Right Ventricle Normal RV size. Normal systolic function. Atria The left atrium is mildly enlarged. Normal right atrium. No doppler evidence for ASD. Mitral Valve There is no mitral annular calcification. Normal mitral valve. Trivial mitral valve insufficiency. Tricuspid Valve Normal tricuspid valve. Mild tricuspid valve insufficiency. Right ventricular systolic pressure estimated to be 50 mmHg. Aortic Valve The aortic valve is not well visualized. Trisinus/trileaflet aortic valve. Mild focal aortic valve calcification. Aortic valve sclerosis / mild aortic valve stenosis. Trivial aortic valve insufficiency. Pulmonic Valve The pulmonic valve is not well visualized. Great Vessels The aortic root is not well visualized. Pericardium/Pleural No pericardial effusion. Medication Diluted definity 4ml given slow IV push to enhance endocardial definition. MMode/2D Measurements AND Calculations LVIDd: 5.1 cm IVSd: 1.4 cm LVOT diam: 2.2 cm LVIDs: 3.7 cm LVPWd: 1.3 cm LVOT area: 3.9 cm2 RVDd: 4.3 cm FS: 28.7 % Ao root diam: 3.3 cm LAV(MOD-bp): 95.7 ml LVAd ap4: 50.9 cm2 LAV(MOD-bp) Indexed: 36.6 ml/m2 EDV(MOD-sp4): 195.8 ml LAV(MOD-sp2): 89.6 ml EDV(sp4-el): 215.2 ml LAV(MOD-sp4): 87.2 ml LVAs ap4: 26.3 cm2 ESV(MOD-sp4): 66.6 ml ESV(sp4-el): 72.8 ml EF(MOD-sp4): 66.0 % EF(sp4-el): 66.2 % SV(MOD-sp4): 129.2 ml SV(sp4-el): 142.4 ml LA A4 area: 27.8 cm2 LA dimension(2D): 4.3 cm RA A4 area: 20.7 cm2 Time Measurements MV dec time: 0.54 sec Doppler Measurements AND Calculations MV E max hayder: 49.1 cm/sec Lat Peak E' Hayder: 9.9 cm/sec Med Peak E' Hayder: 5.6 cm/sec MV A max hayder: 95.2 cm/sec E/E' lat: 4.9 E/E' med: 8.8 MV E/A: 0.52 Ao V2 max: 234.2 cm/sec LV V1 max: 95.7 cm/sec SV(LVOT): 102.1 ml Ao max P.0 mmHg LV V1 max P.7 mmHg Ao V2 mean: 168.3 cm/sec LV V1 mean P.4 mmHg Ao mean P.5 mmHg LV V1 mean: 74.1 cm/sec Ao V2 VTI: 58.2 cm LV V1 VTI: 26.4 cm NAEEM(I,D): 1.8 cm2 NAEEM(V,D): 1.6 cm2 PA V2 max: 108.9 cm/sec TR max hayder: 323.1 cm/sec TR max P.9 mmHg Interpretation Summary The study was technically difficult. Contrast injection was performed. Segmental dysfunction with preserved ejection fraction (see wall motion). The estimated ejection fraction is 60 %. Mild concentric left ventricular hypertrophy. The left atrium is mildly enlarged. Trivial mitral valve insufficiency. Mild tricuspid valve insufficiency. Aortic valve sclerosis / mild aortic valve stenosis. Trivial aortic valve insufficiency. Right ventricular systolic pressure estimated to be 50 mmHg. There is evidence of diastolic dysfunction. Ordering Physician: Nakita Kumar Referring Physician: ANTHONY LOVELL Performed By: Cierra Sosa, ROXY, RVT 03/29/18 1240 Date Zac Parker MD CC: Nakita Kumar MD; Juan Das; Anthony Lovell MD Date Dictated: 03/29/18 0901 Date Transcribed: 03/29/18 1240 Tap And Die Maker Technician: Signed OPERATIVE REPORT - Observed: 03/29/2018 Status: F Source: [place] ENDOSCOPY 7:58 AM [facility] Medical Records Department [address] [place] [address] Operative Report - Endoscopy MR#: [id number] Acct: [id number] Name: NIRMAL KRUEGER Rep #: [id number] : 1935 82 From: Nola Rodgers MD PCP: Anthony Lovell MD Status: ADM IN Patient Name: Nirmal Krueger Procedure Date: 03/29/2018 7:16 AM Date of : 1935 Age: 82 Procedure: Upper GI endoscopy Indications: Iron deficiency anemia due to suspected upper gastrointestinal bleeding, Melena Providers: Nola Rodgers MD Medicines: Monitored Anesthesia Care Patient Profile: This is an 82 year old male. Complications: No immediate complications. Procedure: Pre-Anesthesia Assessment: - Prior to the procedure, a History and Physical was performed, and patient medications and allergies were reviewed. The patient's tolerance of previous anesthesia was also reviewed. The risks and benefits of the procedure and the sedation options and risks were discussed with the patient. All questions were answered, and informed consent was obtained. Prior Anticoagulants: The patient has taken aspirin, last dose was 1 day prior to procedure. ASA Grade Assessment: II - A patient with mild systemic disease. After reviewing the risks and benefits, the patient was deemed in satisfactory condition to undergo the procedure. After obtaining informed consent, the endoscope was passed under direct vision. Throughout the procedure, the patient's blood pressure, pulse, and oxygen saturations were monitored continuously. The gastroscope was introduced through the mouth, and advanced to the second part of duodenum. The upper GI endoscopy was accomplished without difficulty. The patient tolerated the procedure well. Scope In: 7:40:06 AM Scope Out: 7:46:28 AM Total Procedure Duration Time 0 hours 6 minutes 22 seconds Findings: Multiple localized, diminutive non-bleeding erosions were found in the gastric body. There were no stigmata of recent bleeding. Biopsies were taken with a cold forceps for histology. Minimal inflammation characterized by erythema was found in the gastric antrum. Biopsies were taken with a cold forceps for Helicobacter pylori testing. Segmental mucosal changes characterized by erythema were found at the gastroesophageal junction. Biopsies were taken with a cold forceps for histology. The first portion of the duodenum and second portion of the duodenum were normal. No gross lesions were noted in the esophagus. Impression: - Non-bleeding erosive gastropathy. Biopsied. - Gastritis. Biopsied. - Erythematous mucosa in the gastroesophageal junction. Biopsied. - Normal first portion of the duodenum and second portion of the duodenum. - No gross lesions in esophagus. Recommendation: - Await pathology results. - [facility]. - Use sucralfate tablets 1 gram PO BID. -D/C with protonix 40 mg PO daily - Continue present medications. - No aspirin, ibuprofen, naproxen, or other non-steroidal anti-inflammatory drugs. Procedure Code(s): --- Professional --- 92509, Esophagogastroduodenoscopy, flexible, transoral; with biopsy, single or multiple Diagnosis Code(s): --- Professional --- K31.89, Other diseases of stomach and duodenum K29.70, Gastritis, unspecified, without bleeding D50.9, Iron deficiency anemia, unspecified K92.1, Melena (includes Hematochezia) CPT copyright 2017 [employer]. All rights reserved. The codes documented in this report are preliminary and upon contact officer review may be revised to meet current compliance requirements. MD Nola Junior MD 03/29/2018 7:57:48 AM This report has been signed electronically. Number of Addenda: 0 Note Initiated On: 03/29/2018 7:16 AM 03/29/18 0757 Date Nola Rodriguez Signature: Date (if indicated) CC: Juan Das; Anthony Lovell MD; Zac Parker MD; Nola Rodgers MD Date Dictated: 03/29/18715 Date Transcribed: Tap And Die Maker Technician: DEE Signed GASTRIC BIOPSY Observed: 03/29/2018 Status: F Source: [place] 7:30 AM [facility] RE[facility] Patient: NIRMAL KRUEGER : 1935 (82/M) Acct Num: [id number] Phys: Juan Das Unit Num: [id number] Loc: [facility] [id number] Specimen: [id number] Received: 03/29/18 - 1133 Spec Type: Gastric Bx TISSUES 1 TISSUES: A. Gastric mucous membrane B. Stomach, NOS C. Gastric mucous membrane COMMENT The results of immunohistochemistry for Helicobacter pylori will be reported separately ([id number]). C. Alcian blue/PAS stain with matched control supports the above diagnosis. GROSS DESCRIPTION A. Received is one container labeled with the patient name and designated antral biopsy. The specimen consists of one irregular fragment of light evans soft tissue that measures 0.4 x 0.2 x 0.1 cm. The specimen is totally submitted in one cassette. B. Received is one container labeled with the patient name and designated body of the stomach biopsy. The specimen consists of one irregular fragment of light evans soft tissue that measures 0.5 x 0.2 x 0.1 cm. The specimen is totally submitted in one cassette. C. Received is one container labeled with the patient name and designated GE junction biopsy. The specimen consists of two irregular fragments of light evans soft tissue that in aggregate measure 0.4 x 0.2 x 0.1 cm. The specimen is totally submitted in one cassette. / SJ:sp 03/29/18 TC: 3 CPT: 24690q8, 42847i0 HEADER OPERATION: EGD ([facility] [place]) PRE-OP DIAGNOSIS: Anemia, melena TISSUE SUBMITTED: A. Antral biopsy for H. Pylori, B. Body of the stomach biopsy , C. GE junction biopsy MICROSCOPIC DESCRIPTION Slides are reviewed. MICROSCOPIC DIAGNOSIS A. Gastric antrum, biopsy: Minimal chronic inflammation. B. Gastric body, biopsy: Minimal chronic inflammation. C. 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 No evidence of dysplasia. Mild chronic inflammation. AM:sp 03/30/18 Signed Vik Sorto 03/30/18 <signature on file> Performed By: #### PGASB #### [facility] [address] [place], [address] CBC W/DIFF, AUTOMATED Collected: 03/29/2018 Status: C Source: [place] 4:55 AM [facility] REPOSITORY TYPE CODE TESTS RESULT OUT OF RANGE REFERENCE UNITS LAB L100.1000 4.4-11.0 K/mm3 Normal WBC 9.1 LAB L100.1200 4.6-6.2 M/mm3 Low RBC 2.74 LAB L100.1300 13.0-16.5 g/dl Low HGB 8.7 LAB L100.1400 40-54 % Low HCT 27.1 LAB L100.1500 80-94 fL High MCV 98.9 LAB L100.1600 27.0-32.0 pg Normal MCH 31.8 LAB L100.1700 32-36 g/gl Normal MCHC 32.1 LAB L100.1810 11.6-14.6 % High RDW CV 16.6 LAB L100.1820 35.1-43.9 fl High RDW SD 57.1 LAB L100.1900 150-450 K/mm3 Normal PLT 176 LAB L100.2000 6.2-12.0 fl Normal MPV 10.0 LAB L100.3100 MANUAL DIFF Normal CELLS COUNTED 100 LAB L100.3200 47-70 % High 81 SEGS LAB L100.3300 0-5 % 1 Normal BAND LAB L100.3800 19-41 % Low 14 LYMPH LAB L100.3900 0-10 % 2 Normal MONOCYTE LAB L100.4000 0-5 % 2 Normal EOS LAB L100.5500 ADEQ Normal PLT EST ADEQUATE LAB L100.7000 NORM C AND C NORMAL Normal RED CELL MORPH NORM C+C LAB L100.2620 2.0-7.7 X10 3/uL Normal Absolute Neut 7.5 LAB L100.2720 0.83-4.51 X10 3/ul Normal Absolute Lymph 1.27 LAB L100.9900 Normal PATH REV Reviewed Result Comment: Neutrophilic left shift. Macrocytic anemia. Clinical correlation necessary. Loy Junior M.D. 03/30/18 Pathologist comment added AMENDED REPORT 03/30/18 0850 PATH REV previously reported as: September Performed By: #### L100.0100 #### [facility] [address] [place], [place], [address] BASIC METABOLIC Collected: 03/29/2018 Status: F Source: [place] PROFILE (BMP) 4:55 AM [facility] REPOSITORY TYPE CODE TESTS RESULT OUT OF RANGE REFERENCE UNITS LAB L501.0100 74-106 mg/dL Normal GLU 99 Result Comment: Please note revised GLUCOSE reference range effective 2017. LAB L501.1000 7-18 mg/dL High BUN 44 LAB L501.1100 0.70-1.30 mg/dL High CREAT,SERUM 1.60 Result Comment: The validity of the calculated GFR AND GFRAA in patients over 70 years has not been determined. Clinical correlation is essential. LAB L501.1110 >60 mL/min Low EST GFR 44 Result Comment: Non- GFR Calc LAB L501.1115 >60 mL/min Low EST GFR - AA 54 Result Comment: GFR Calc LAB L501.1255 ml/min Normal Estimated CRCL 42.10 LAB L501.1300 10-20 RATIO High BUN/CRE 27.5 LAB L501.2200 8.5-10 mg/dL Low .1 CA 8.2 LAB L501.5300 136-14 mmol/L Normal 5 NA 143 LAB L501.5600 3.5-5. mmol/L Normal 1 K 4.6 LAB L501.5900 98-107 mmol/L High CL 115 LAB L501.6100 21.0-3 mmol/L Low 2.0 CO2 20.0 LAB L501.6200 5-15 Normal GAP 8 Performed By: #### L500.2500, L500.3400, L500.4100 #### [facility] [address] [place], [address] LIVER PROFILE Collected: 03/29/2018 Status: F Source: [place] 4:55 AM [facility] REPOSITORY TYPE CODE TESTS RESULT OUT OF RANGE REFERENCE UNITS LAB L501.1500 6.4-8.2 g/dL Low T PROT 5.6 LAB L501.1800 3.2-5.0 g/dL Low ALB 2.7 LAB L501.1950 2.2-4.2 g/dL Normal GLOB 2.9 LAB L501.4100 15-37 U/L Normal AST 23 LAB L501.4305 45-117 U/L Low ALK P 40 LAB L501.4405 16-61 U/L Normal ALT 17 LAB L501.4600 0.20-1.00 mg/dL Normal T BILI 0.30 LAB L501.4700 0.00-0.30 mg/dL Normal D BILI 0.12 Performed By: #### L500.2500, L500.3400, L500.4100 #### [facility] [address] [place], [address] LIPID PROFILE Collected: 03/29/2018 Status: F Source: [place] 4:55 [facility] TYPE CODE TESTS RESULT OUT OF RANGE REFERENCE UNITS LAB L501.4900 200 mg/dL High CHOL 203 Result Comment: <200 mg/dL Desirable 200-240 mg/dL Borderline >240 mg/dL High Risk LAB L501.5000 mg/dL Normal TRIG 127 Result Comment: The drugs N-Acetylcysteine and Metamizole may falsely depress this assay. Serum Triglycerides Reference Interval Normal <150 mg/dL Borderline high 150 - 199 mg/dL High 200 - 499 mg/dL Very High > or = 500 mg/dL LAB L501.6400 mg/dL Low HDL 31 Result Comment: The drugs N-Acetylcysteine and Metamizole may falsely depress this assay. Reference Range HDL <40 mg/dL Low HDL Cholesterol HDL >or= 60 mg/dL High HDL Cholesterol LAB L501.6500 0-130 mg/dL High LDL 147 LAB L501.6600 5-40 mg/dL Normal VLDL 25 Performed By: #### L500.2500, L500.3400, L500.4100 #### [facility] [address] [place], [address] IRON+IRON BINDING Collected: 03/29/2018 Status: F Source: [place] CAPACITY 4:55 AM [facility] REPOSITORY Order Comment: Comments: Add to this morning's labs Comments: add to this mornings labs TYPE CODE TESTS RESULT OUT OF RANGE REFERENCE UNITS LAB L503.6075 250-450 ug/dL TIBC Normal 271 LAB L503.6150 65-175 ug/dL Low IRON 38 LAB L503.6250 15.0-55.0 % Low IRON SATURATION 14.0 Performed By: #### L503.6030, L503.6550 #### [facility] [address] [place], [place], [address] FERRITIN Collected: 03/29/2018 Status: F Source: [place] 4:55 AM [facility] REPOSITORY Order Comment: Comments: Add to this morning's labs Comments: add to this mornings labs TYPE CODE TESTS RESULT OUT OF RANGE REFERENCE UNITS LAB L503.6550 26-388 ng/mL Normal FERRITIN 27 Performed By: #### L503.6030, L503.6550 #### [facility] [address] [place], [address] IMMUNOHISTOCHEMISTRY Observed: 03/29/2018 Status: F Source: [place] 12:00 AM [facility] REPOSITORY Patient: NIRMAL KRUEGER : 1935 (82/M) Acct Num: [id number] Phys: ShericesydneeJuan Unit Num: [id number] Loc: [facility] [id number] Specimen: [id number] Received: 03/30/18803 Spec Type: IMMUNO TISSUES 1 TISSUES: Gastric mucous membrane SPECIMEN INFORMATION: Tissue Source: A. Antral biopsy Clinical Info: Anemia, Melena Specimen Number: [id number] CPT code: 97389 METHODOLOGY: Deparaffinized sections of prefer/formalin-fixed tissue or PAP/DQ stained slides are incubated with monoclonal/polyclonal antibodies/oligonucleotide probes. Localization is made via biotin free immunoperoxidase method. Appropriate controls are performed and reacted as expected. Results on target cell population are indicated in the following table: RESULTS: ANTIBODY / CLONE RESULT H Pylori (polyclonal) negative These tests were developed and their performance characteristics determined by [facility]. They may not have been cleared or approved by the U.S. Food and Drug Administration. The FDA has determined that such clearance or approval is not necessary. INTERPRETATION: Antral biopsy: Negative for Helicobacter pylori. AM:librado 03/30/18 PHYSICIAN AND INSTITUTION [address] [address] Signed Vik Macario 03/30/18 <signature on file> Performed By: #### PIMM #### [facility] [address] [place] [address]. [place], [address] CONSULTATION Observed: 03/28/2018 Status: F Source: [place] 9:07 PM [facility] Medical Records Department [address] [place] [address] Consultation 03/28/182054 MR#: [id number] Acct: [id number] Name: NIRMAL KRUEGER Dara Rep #: [id number] : 1935 82 From: Zac Parker MD PCP: Anthony Lovell MD Status: ADM IN Location: [place] [address] Problem List (1) NSTEMI (non-ST elevated myocardial infarction) Status: Acute (2) HTN (hypertension) Status: Chronic Qualifiers: Hypertension type: essential hypertension Qualified Code(s): I10 - Essential (primary) hypertension (3) Chronic renal insufficiency Status: Chronic (4) GI bleed Status: Acute Qualifiers: GI bleed type/associated pathology: unspecified gastrointestinal hemorrhage type Qualified Code(s): K92.2 - Gastrointestinal hemorrhage, unspecified (5) Macrocytic anemia Status: Acute Reason for Consult Date of Consultation: 03/28/18 History of Present Illness: The patient is a 82 year old white male who presents for evaluation of chest discomfort with subsequent findings of abnormal cardiac enzymes and anemia thought secondary to a GI bleed. The patient states he has a long-standing history of hypertension for which she has been medically treated. He notes he follows his blood pressures at home. He states they have been under good control. He also appears, based on his medical records, to have a history of chronic renal insufficiency. To the best of his knowledge she has no cardiovascular history. He states that recently he received his influenza a injection. Since that time he has not felt well. He states that he has developed chest discomfort which was more prominent when he was resting supine as opposed to sitting up. He notes he has become more short of breath and dyspneic. He has not had any obvious nausea, emesis, or diaphoresis. There is been no loss of consciousness. He denies any lower extremity peripheral pitting edema. He states he is very [place] with his 2 sons. However, he notes recently he has become more short of breath and dyspneic when walking up an incline on his property. He states that it is not like him. He presented to the emergency department for further evaluation. He had an abnormal troponin I level. His ECG demonstrated sinus rhythm with borderline low voltage QRS and poor R wave progression. He was also noted to be anemic with a hemoglobin of 7.6. He states he does use nonsteroidal anti-inflammatory agents for his chronic back discomfort. He uses a combination of extra strength aspirin and ibuprofen multiple times a day. To the best of his knowledge she has had no cardiovascular testing in the past. At the present time he appears to be resting comfortably. He has had repeat troponin I levels which are decreasing. A repeat ECG demonstrated no significant change. He is receiving PRBCs. [] Past Medical History Allergies/Adverse Reactions: Allergies No Known Allergies Allergy (Verified 05/19/16 03:11) Home Medications: Ambulatory Orders Medication Instructions Recorded Multivitamin [Daily Multiple 1 each PO DAILY 05/19/16 Past Medical History (Chronic Problems): Chronic Problems Chronic renal insufficiency (Chronic) Morbid obesity with BMI of 40.0-44.9, adult (Chronic) Osteoarthritis (Chronic) Hypothyroidism (Chronic) Gout (Chronic) HTN (hypertension) (Chronic) CKD (chronic kidney disease) stage 3, GFR 30-59 ml/min (Chronic) Surgical History: - - Bilateral total hip repair, bilateral foot surgeries. Psychiatric History: No pertinent psych hx - *Family History Maternal History Items: No pertinent history Paternal History Items: Cancer - Tobacco user, lung cancer diagnosis. Lives: Spouse/ Significant Other Smoking Status: Former smoker Tobacco Use: Non-smoker Alcohol: None Drugs: None Review of Systems - Review of Systems General: Denies: Fever, Night Sweats, Fatigue Cardiovascular: Reports: Chest Discomfort, Chest Discomfort at Rest, Shortness of Breath, Shortness of Breath with Exertion. Denies: Orthopnea, PND, Peripheral Edema, Palpitations, Lightheadedness, Dizziness, Near Syncope, Syncope Respiratory: Reports: Shortness of Breath. Denies: Cough, Sputum Production, Hemoptysis Gastrointestinal: Reports: Melena. Denies: Hematemesis, Hematochezia Genitourinary: Denies: Dysuria, Hematuria Skin: Denies: Rash Subjectve: This is an 82-year-old white male who appears to be resting comfortably at the moment in no acute distress. Objective: Vital Signs Temp Pulse Resp BP Pulse Ox 98 F 69 14 116/61 96 03/28/18 20:51 03/28/18 20:51 03/28/18 20:51 03/28/18 20:51 03/28/18 20:51 Oxygen Delivery Method Room Air Weight: 305 lb 5.443 oz Body Mass Index (BMI) 39.2 Finger Stick Blood Glucose 119 Intake and Output for Last 24 Hours Intake Total 713 / 713 Balance 713 / 713 General: Awake, Alert, Oriented x 3, Cooperative, No Acute Distress, Obese HEENT: Atraumatic, Normocephalic, PERRL, EOMI, Sclera Non Icteric Oral: Moist Mucosa Neck: Supple, Good ROM, No JVD Lungs: Clear to auscultation Cardiovascular: Regular Rhythm, Normal S2 Vascular: No Carotid Bruits Abdomen: Bowel Sounds Present, Soft, Obese, - - Mild tenderness to palpation over the epigastric area Extremities: No Cyanosis, No Clubbing, No edema Neurological: No Focal Motor or Sensory Deficit Psych/Mental Status: Appropriate, Normal Affect 03/28/18 13:50: WBC 13.4 H, RBC 2.38 L, Hgb 7.6 L, Hct 24.3 L, MCV 102.1 H, MCH 31.9, MCHC 31.3 L, RDW 16.1 H, RDW Differential 57.4 H, Plt Count 206, MPV 9.8, Neut % (Auto) Not Reportable, Absolute Neuts (auto) 10.7 H, Total Counted 100, Neutrophils % (Manual) 74 H, Band Neutrophils % 1, Lymphocytes % (Manual) 13 L, Monocytes % (Manual) 9, Eosinophils % (Manual) 2, Metamyelocytes % 1 03/28/18 13:50: Sodium 141, Potassium 4.5, Chloride 113 H, Carbon Dioxide 19.0 L, Anion Gap 9, BUN 54 H, Creatinine 1.70 H, Est GFR (MDRD) Af Amer 50 L, Est GFR (MDRD) Non-Af 41 L, BUN/Creatinine Ratio 31.8 H, Glucose 134 H, Calcium 8.4 L, Troponin I 1.210 H* 03/28/18 16:38: Troponin I 1.180 H* 03/28/18 19:35: Troponin I 1.110 H* Rhythm: Sinus rhythm EKG: As noted above CXR: Preliminary evaluation: No acute cardiopulmonary disease process appreciated: Please see official report Assessment/Plan 1. Non-ST segment elevation CO The patient has chest discomfort. He has had abnormal troponin I levels. He has had no acute ECG changes. This is also in the setting of her recent influenza A vaccine as well as subsequent findings of anemia. The patient's chest discomfort has a positional component which may suggest a possible underlying pericarditis. On examination the patient does not have a pericardial friction rub at this time. He has had no acute ECG changes. At the same time the patient does need to be monitored for any obvious evidence of an acute coronary syndrome. However his cardiac enzymes, if not thought related to some underlying mild pericardial disease process, may be secondary to a type II event brought on by supply demand mismatch and myocardial ischemia secondary to his anemia. Thus at the present time he will continue to be monitored with cardiac telemetry monitoring, enzyme follow-up, and ECG follow-up. He will have an echocardiogram performed to evaluate his left ventricular wall motion and systolic function as well as his pericardial space. He may eventually need further evaluation for the possibility of underlying CAD with noninvasive or invasive studies. In the interim he will be treated medically as able. Ideally this would include agents such as aspirin in addition to nitrates as needed, beta-blockers, lipid-lowering agents, etc. However there is concern using agents such as aspirin and/or antiplatelet agents and her anticoagulants at this time secondary to concern of a GI bleed and subsequent anemia requiring PRBCs. Thus this would make it difficult to proceed with any invasive evaluation or care at this time barring some unforeseen urgent/emergent event. He will also received PRBCs which may benefit his oxygen carrying capacity and his cardiovascular status. 2. Hypertension The patient has a history of hypertension. He states it is been well controlled. His blood pressure will need to be followed. 3. Chronic renal insufficiency Patient has a history of chronic renal insufficiency. This may impact medical therapy and evaluation and care-especially if the patient required IV contrast mediated studies. 4. GI bleed There is concern based upon patient's symptoms and findings that he may have an underlying GI bleed. It is possible this could be an upper GI bleed secondary to his nonsteroidal anti-inflammatory use. 5. Anemia And the patient has anemia. This may be secondary to GI bleed. Based upon his symptoms, abnormal cardiac enzyme findings, etc. the patient is receiving PRBCs. Comment: The patient's case was discussed and reviewed with the patient, Dr. Kumar the [facility] staff, and Dr. Valdez of the [facility] emergency department staff. This note was generated with [employer]ist[employer] software. It may contain incorrect words, spelling, and punctuation that were not noted in checking the note before signing. 03/28/182106 <Electronically signed by Zac Parker MD> Date Zac Parker MD Cosigner Signature (if applicable): Date CC: Anthony Lovell MD; Zac Parker MD; Nola Rodgers MD Signed TROPONIN-I Collected: 03/28/2018 Status: F Source: [place] 7:35 PM [facility] REPOSITORY Order Comment: 'TROP' Serial specimen #1, #2 or #3: 3 TYPE CODE TESTS RESULT OUT OF RANGE REFERENCE UNITS LAB L501.4010 <0.045 ng/mL High alert 1.110 TROPONIN-I Result Comment: Critical Result(s) Called at: 20:37:17 03/28/2018 by: ALIA ABARCA RN IN U TROPONIN-I EXPECTED VALUES <0.045 Negative 0.045 - 0.590 Consistent with Cardiac Damage > OR = 0.600 Critical Value Not every elevated troponin is indicative of CO. These values should be used with clinical judgement in examining the patient's clinical picture for diagnosis. To establish a diagnosis of CO versus myocardial injury, there must be a demonstrated rise and/or fall in the troponin values, in addition to ischemic symptoms, EKG changes, new regional wall motion abnormality, and/or angiographical evidence. PLEASE NOTE: REFERENCE RANGES EDITED 17 Performed By: #### L501.4010 #### [facility] [address] [place], [address] HISTORY AND PHYSICAL Observed: 03/28/2018 Status: F Source: [place] EXAM 6:18 PM [facility] Medical Records Department [address] [place] [address] History and Physical 03/28/18 1552 MR#: [id number] Acct: [id number] Name: NIRMAL KRUEGER Rep #: [id number] : 1935 82 From: Nakita Kumar MD PCP: Liliya PEOPLES,Anthony Status: ADM IN Y Location: [place] [address] ADDENDUM by Nakita Kumar MD on 03/28/18 at 1818 Code Visit CODE STATUS: Full code Patient and the at the bedside with asked about his CODE STATUS. He said he had a paperwork and he was a DNR. I explained the differences between DNR CCA and DNR CC. He did not want to be kept alive if it was going to help. I explained that that was not how it works otherwise he would be full code. Patient upon discussion with his asked for further clarification - I simplified the meaning of DNR CCA and DNR CC and he wished to be DNR CCA. Paperwork was signed, DNR CCA was added in the orders. Patient later communicated to the nurse that he had thought about it further and discussed with the family and prefers to be a full code. This status was changed. 20 minutes was spent discussing patient's CODE STATUS. Procedures: 23848 Advncd Care Plan 30 Min 03/28/18 1818 <Electronically signed by Nakita Kumar MD> Date Nakita Kumar MD cc: Nakita Kumar MD; Anthony Lovell MD * Signed Problem List (1) GI bleed Status: Acute Qualifiers: GI bleed type/associated pathology: unspecified gastrointestinal hemorrhage type Qualified Code(s): K92.2 - Gastrointestinal hemorrhage, unspecified (2) Macrocytic anemia Status: Chronic (3) Osteoarthritis Status: Chronic Qualifiers: Osteoarthritis location: unspecified site Osteoarthritis type: unspecified Qualified Code(s): M19.90 - Unspecified osteoarthritis, unspecified site (4) Hypothyroidism Status: Chronic Qualifiers: Hypothyroidism type: unspecified Qualified Code(s): E03.9 - Hypothyroidism, unspecified (5) Gout Status: Chronic Qualifiers: Gout site: unspecified site Gout etiology: unspecified cause Chronicity: unspecified Qualified Code(s): M10.9 - Gout, unspecified (6) HTN (hypertension) Status: Chronic Qualifiers: Hypertension type: essential hypertension Qualified Code(s): I10 - Essential (primary) hypertension History of Present Illness Date of Admission: 03/28/18 Chief Complaint: Chest pain - 4 day. Fatigue - for some days The patient is a 82 year old M with past medical history of chronic back pain, on ibuprofen, hypothyroidism, hypertension who comes in with complaints of chest pain that has been going on for about 4 days. He attributes this to some flu shot today he had 4 days prior. He had generalized pain and diarrhea after the flu shot. Over the last 2 days, he has noticed melena stools. He admits to using ibuprofen 2 tablets 3 times a day for chronic back pain. He developed chest pain that started days ago, substernal, nonradiating, not associated with any symptom. He admits to feeling slightly lightheaded. He denied any history of cardiac conditions. No history of CO or stents. Vitals in ED, temp 98.1F, HR 84, BP 99/54, RR 18, SpO2 98% on RA. Labs showed RBC count of 3.4, hemoglobin 7.6, MCV 102.1, platelet count 206, sodium 141, potassium 4.5, chloride 113, bicarbonate 19, BUN 54, creatinine 1.7, troponins were elevated at 1.210. EKG shows NSR, no acute ST-T changes. Cardiology consulted by ED. Past Medical History Past Medical History (Chronic Problems): Chronic Problems Macrocytic anemia (Chronic) Morbid obesity with BMI of 40.0-44.9, adult (Chronic) Osteoarthritis (Chronic) Hypothyroidism (Chronic) Gout (Chronic) HTN (hypertension) (Chronic) CKD (chronic kidney disease) stage 3, GFR 30-59 ml/min (Chronic) Allergies No Known Allergies Allergy (Verified 05/19/16 03:11) Home Medications: Ambulatory Orders Medication Instructions Recorded RX: Multivitamin [Daily Multiple 1 each PO DAILY 05/19/16 Vitamin] RX: Aspirin 650 mg PO DAILY 12/02/16 Surgical History: - - Bilateral total hip repair, bilateral foot surgeries. Psychiatric History: No pertinent psych hx Smoking Status: Former smoker Tobacco Use: Non-smoker Alcohol: None Drugs: None - *Family History Maternal History Items: No pertinent history Paternal History Items: Cancer - Tobacco user, lung cancer diagnosis. Review of Systems Constitutional: Reports: Weakness. Denies: Anorexia, Chills, Fever, Malaise, Weight Change Eyes: Denies: Blurred vision, Conjunctivae Inflammation, Double vision, Pain, Redness HEENT: Denies: Difficulty Hearing, Difficulty Swallowing, Head Aches, Hearing Changes, Nasal bleeding, Nasal Congestion, Sinus Congestion, Sinus Drainage Cardiovascular: Reports: Chest Pain, Chest Pressure, Chest Tightness, Light Headedness. Denies: Orthopnea, Palpitations, Paroxysmal Noc. Dyspnea Respiratory: Reports: Shortness of Breath, Shortness of breath upon exertion. Denies: Cough, Shortness of breath at rest, Sputum production Gastrointestinal: Denies: Abdominal Pain, Constipation, Hematemesis, Hematochezia, Nausea, Melena, Vomiting Genitourinary: Denies: Dysuria, Frequency, Incontinence Musculoskeletal: Denies: Joint Pain, Joint stiffness, Joint swelling, Joint Tenderness Skin: Denies: Rash, Wounds Neurological: Denies: Difficulty swallowing, Focal weakness, Numbness, Tingling Psychiatric: Denies: Anxiety, Depression, Homicidal Ideations, Suicidal Ideations Hematologic/ Lymphatic: Denies: Easy Bruising, Easy Bleeding VTE Information - Inpt Only VTE Present on Admission: No VTE Pharm Prophylaxis ordered?: Yes Patient Problems: Active and Suspected Problems GI bleed (Acute) - Physical Exam General: Alert, Oriented x3, Cooperative, - - obese HEENT: Atraumatic, PERRLA, EOMI, Normocephalic Oral: Moist Mucosa Neck: Supple, No JVD, Negative Carotid Bruits Lungs: Clear to auscultation, Normal air movement Cardiovascular: Regular rate, Regular Rhythm, Normal S1, Normal S2, No murmurs Abdomen: Bowel Sounds Present, Soft, Non Tender, Non-Distended, No Hepato-splenomegaly Extremities: Edema - Trace bilateral edema Skin: No rashes, No breakdown Musculoskeletal: No Tenderness to Palpation of Joints or Extremities Lymphatic: No Cervical, Supraclavicular, or Inguinal Adenopathy Neurological: Cranial nerves II-XII grossly intact, Neuro grossly intact Psych/Mental Status: Normal Affect, Appropriate Vital Signs Temp Pulse Resp BP Pulse Ox 98.1 F 65 21 H 99/54 L 98 03/28/18 13:15 03/28/18 15:26 03/28/18 15:26 03/28/18 13:15 03/28/18 15:26 Oxygen Delivery Method Room Air Weight: 140.614 kg Body Mass Index (BMI) 39.8 Finger Stick Blood Glucose 119 Laboratory Tests Past 24 Hrs WBC 13.4 H RBC 2.38 L Assessment/Plan All Active Problems GI bleed (Acute) Hyperkalemia (Acute) Sepsis (Acute) Cellulitis (Acute) 82 year old M with past medical history of chronic back pain, on ibuprofen, hypothyroidism, hypertension who comes in with complaints of chest pain that has been going on for days. 1. Acute chest pain/Acute NSTEMI, Type 2, no hx of cardiac disease, due to severe anemia, no acute ST-T changes Plan: Admit to PCU, monitor on telemetry, we will not anticoagulate or use aspirin or Plavix, cardiology consult, 2D echo, repeat EKG in a.m. 2. Severe symptomatic anemia, likely second to Acute GI bleed; patient admitted with hemoglobin of 7.6, last hemoglobin in [id number] 12.4, will transfuse 2 units of packed RBC, monitor H AND H, general surgery consult 3. Acute GI bleed, likely secondary to upper GI, secondary to ibuprofen use, stable vitals,will continue on IV fluids, packed RBCs, IV PPI drip, general surgery consulted, EGD colonoscopy in a.m. 4. Chronic back pain, on ibuprofen, will continue on tylenol, oxycodone as needed for pain. 5. Hypertension, controlled, continue on home blood pressure medication with holding parameters 6. Hypothyroidism, on levothyroxine 7. Gout, on allopurinol 8. DVT prophylaxis with SCDs Code Visit Inpatient Rohan AND M: [id number] Init Hosp L3 03/28/18 1802 <Electronically signed by Nakita Kumar MD> Date Nakita Kumar MD Cosigner Signature: Date (if applicable) CC: Nakita Kumar MD; Anthony Lovell MD Signed EMERGENCY DEPARTMENT Observed: 03/28/2018 Status: F Source: [place] SUMMARY 4:46 PM [facility] Medical Records Department [address] [place] [address] Emergency Department Summary 03/28/18 1525 MR#: [id number] Acct: [id number] Name: NIRMAL KRUEGER Rep #: [id number] : 1935 82 From: Mehrdad Valdez MD PCP: Anthony Lovell MD Status: ADM IN - ER Visit Summary Date of Service: 03/28/18 Chief Complaint: Chest pain History of Present Illness: The patient is a [address] Lovell. He reports that his chest pain that began 4 days ago. States that this only occurs at night when he lays down. Complains of a sharp pain to both sides of his chest that begins when he lays down. States pain is 7-10 at worst and is pain-free currently. States pain resolves when he gets up and sits in his recliner. Does report it makes him very short of breath. Patient does report that over the past 4 days he is also had dyspnea on exertion. However, he does not have chest pain with exertion. Patient states that this all began the day after he got a flu shot. States that since that time he has not felt well. He complains of generalized weakness. He reports that he had 2 days of diarrhea. He did not look at the stool. He does not know if it was black and tarry. He reports that he took Kaopectate and has not had diarrhea for the past 1-2 days. He reports he had a normal bowel movement today. Patient reports that his last colonoscopy was approximately [address] Saleh. States he gets colonoscopy every 5 years. He denies any source of blood loss. Is not had any nosebleeds or injuries. Does report he takes Advil twice a day for back pain. Physical Examination: Vitals: 98.1, 99/54, 84, 18, 93% room air which is not hypoxic. General: Well-nourished and well-developed. Head: Normocephalic atraumatic. Neck: Supple, no lymphadenopathy. No JVD. Nontender. Cardiovascular: Regular rate and rhythm. 2 out of 6 systolic murmur. Respiratory: No respiratory distress. Clear to auscultation bilaterally. No crackles. Abdominal: Soft, nontender, nondistended, normal bowel sounds. No guarding, rebound, or peritoneal signs. Back: Nontender. Extremities: Nontender, 1+ pitting edema of his lower extremity bilaterally. Skin: Normal color, no rash. Neurologic: Alert and oriented 3. Cranial nerves II through XII are intact. Normal strength and sensation. Psych: Normal affect. Test Results: EKG is sinus at 65 with Q waves in leads III. Is essentially unchanged from November 2016. Troponin is 1.21. Chem-7 is more for chloride 113, CO2 of 19, BUN 54, creatinine 1.7, glucose 134, calcium 8.4. CBC is more for a white count of 13.4 with 74 segmented neutrophils and 13 lymphocytes. H AND H is 7.6 and 24.3. His last hemoglobin was November 2016 at that time it was 12.4. ESR is 24. Chest x-ray shows chronic changes. Emergency Department Course and Treatment: Patient was initially treated with aspirin. When his labs returned I went in and talked with him about any source of blood loss and he does not know of any. Does report that his diarrhea was malodorous. He was given Protonix IV. Treatment Plan: Patient was discussed with Dr. Parker. At this time with the anemia as well as the atypical nature of this the patient will not be anticoagulated. He asked patient get an echocardiogram to rule out pericarditis/myocarditis and an effusion. The patient was also discussed with Dr. Kumar and Dr. Rodgers. He was typed and crossed for 2 units of packed red blood cells. He is resting comfortably. Disposition: Admitted in serious condition. Impression: 1. Anemia. 2. Non-ST elevation CO. 3. Chronic renal insufficiency. 4. Critical care time 30 minutes. This note was generated with CrowdTwist[employer] software. It may contain incorrect words, spelling, and punctuation that were not noted in review of the chart prior to signing ED Disposition - Plan for ED Patient: Chief Complaint: Chest Pain Referrals: Anthony Lovell MD [Primary Care Provider] - What to do if you have Problems For any increased pain, shortness of breath, bleeding, nausea or vomiting, chest pain, or any unexpected problems, contact your Primary Care Provider. Call [facility] ([phone]) or report to the closest Emergency Room. Call 911 if necessary. 03/28/18 1646 <Electronically signed by Mehrdad Valdez MD> Date Mehrdad Valdez MD Cosigner Signature (If Indicated): Date CC: Anthony Lovell MD TROPONIN-I Collected: 03/28/2018 Status: F Source: [place] 4:38 PM [facility] REPOSITORY Order Comment: 'TROP' Serial specimen #1, #2 or #3: 2 TYPE CODE TESTS RESULT OUT OF RANGE REFERENCE UNITS LAB L501.4010 <0.045 ng/mL High alert 1.180 TROPONIN-I Result Comment: Critical Result(s) Called at: 17:20:58 03/28/2018 by: ALIA SY RN IN U TROPONIN-I EXPECTED VALUES <0.045 Negative 0.045 - 0.590 Consistent with Cardiac Damage > OR = 0.600 Critical Value Not every elevated troponin is indicative of CO. These values should be used with clinical judgement in examining the patient's clinical picture for diagnosis. To establish a diagnosis of CO versus myocardial injury, there must be a demonstrated rise and/or fall in the troponin values, in addition to ischemic symptoms, EKG changes, new regional wall motion abnormality, and/or angiographical evidence. PLEASE NOTE: REFERENCE RANGES EDITED 17 Performed By: #### L501.4010 #### [facility] [address] [place], [address] TYPE AND SCREEN Collected: 03/28/2018 Status: F Source: [place] 3:00 PM [facility] REPOSITORY Order Comment: CMV NEG? N Number of units to transfuse: 2 Reason for Ordering Blood: Chronic Is there symptomatic anemia? Y Are the blood/blood products to be transfused? Y Is the patient having/had surgery? N Has pt arrived? Y CMV NEG?* N Give When? When Ready Irradiated? N Leukodepleted? Y Reason for Type AND Screen/Red Cells: ANEMIA TYPE CODE TESTS RESULT OUT OF RANGE REFERENCE UNITS LAB B10.0800 A Normal BLOOD TYPE GEL POSITIVE LAB B100.4000 Normal Antibody NEGATIVE Screen Performed By: #### B101.7450 #### [facility] [address] [place], [address] RC Collected: 03/28/2018 Status: F Source: [place] 3:00 PM [facility] REPOSITORY TYPE CODE TESTS RESULT OUT OF REFERENCE UNITS RANGE LAB U100.0000 [id number] TRANSFUSED PRODUCT: T AND S with Crossmatch, Red Cells COUNT: 2 Performed By: #### U100.0000 #### [facility] - refer to report for specific site CBC W/DIFF, AUTOMATED Collected: 03/28/2018 Status: C Source: [place] 1:50 PM [facility] REPOS[facility]ORY TYPE CODE TESTS RESULT OUT OF REFERENCE UNITS RANGE LAB L100.1000 4.4-11.0 K/mm3 WBC High 13.4 LAB L100.1200 4.6-6.2 M/mm3 Low RBC 2.38 LAB L100.1300 13.0-16.5 g/dl Low HGB 7.6 LAB L100.1400 40-54 % Low HCT 24.3 LAB L100.1500 80-94 fL MCV High 102.1 LAB L100.1600 27.0-32.0 pg MCH Normal 31.9 LAB L100.1700 32-36 g/gl Low MCHC 31.3 LAB L100.1810 11.6-14.6 % RDW CV High 16.1 LAB L100.1820 35.1-43.9 fl RDW SD High 57.4 LAB L100.1900 150-450 K/mm3 PLT Normal 206 LAB L100.2000 6.2-12.0 fl MPV Normal 9.8 LAB L100.3100 MANUAL DIFF CELLS COUNTED Normal 100 LAB L100.3200 47-70 % SEGS High 74 LAB L100.3300 0-5 % BAND Normal 1 LAB L100.3400 0-1 % META Normal 1 LAB L100.3800 19-41 % Low LYMPH 13 LAB L100.3900 0-10 % MONOCYTE Normal 9 LAB L100.4000 0-5 % EOS Normal 2 LAB L100.5500 ADEQ PLT EST Normal ADEQUATE LAB L100.7500 POLYCHROMASIA Normal RARE LAB L100.7600 HYPOCHROMASIA Normal 2+ LAB L100.2620 2.0-7.7 X10 3/uL Absolute Neut High 10.7 LAB L100.2720 0.83-4.51 X10 3/ul Absolute Lymph Normal 1.74 LAB L100.9900 PATH REV Normal Reviewed Result Comment: Neutrophilic leukocytosis with left shift. Macrocytic anemia. Clinical correlation necessary. Loy Junior M.D. 03/30/18 Pathologist comment added AMENDED REPORT 03/30/18 0831 PATH REV previously reported as: September Performed By: #### L100.0100, L101.9900 #### [facility] [address] [place], [place], [address] ERYTHROCYTE SED RATE Collected: 03/28/2018 Status: F Source: [place] 1:50 PM [facility] TYPE CODE TESTS RESULT OUT OF RANGE REFERENCE UNITS LAB L102.0000 0-20 mm/hr High SED RATE 24 Performed By: #### L100.0100, L101.9900 #### [facility] [address] [place], [place], [address] BASIC METABOLIC Collected: 03/28/2018 Status: F Source: [place] PROFILE (BMP) 1:50 PM [facility]POS[facility] TYPE CODE TESTS RESULT OUT OF RANGE REFERENCE UNITS LAB L501.0100 74-106 mg/dL High GLU 134 Result Comment: Fasting Glucose result greater than or equal to 126 mg/dL suggests DIABETES MELLITUS per A.D.A. criteria. Please note revised GLUCOSE reference range effective 2017. LAB L501.1000 7-18 mg/dL High BUN 54 LAB L501.1100 0.70-1.30 mg/dL High CREAT,SERUM 1.70 Result Comment: The validity of the calculated GFR AND GFRAA in patients over 70 years has not been determined. Clinical correlation is essential. LAB L501.1110 >60 mL/min Low EST GFR 41 Result Comment: Non- GFR Calc LAB L501.1115 >60 mL/min Low EST GFR - AA 50 Result Comment: GFR Calc LAB L501.1255 ml/min Normal Estimated CRCL 39.62 LAB L501.1300 10-20 RATIO High BUN/CRE 31.8 LAB L501.2200 8.5-10 mg/dL Low .1 CA 8.4 LAB L501.5300 136-14 mmol/L Normal 5 NA 141 LAB L501.5600 3.5-5. mmol/L Normal 1 K 4.5 LAB L501.5900 98-107 mmol/L High CL 113 LAB L501.6100 21.0-3 mmol/L Low 2.0 CO2 19.0 LAB L501.6200 5-15 Normal GAP 9 Performed By: #### L500.2500, L501.4010 #### [facility] [address] [place], [address] TROPONIN-I Collected: 03/28/2018 Status: F Source: [place] 1:50 PM [facility] REPOSITORY TYPE CODE TESTS RESULT OUT OF RANGE REFERENCE UNITS LAB L501.4010 <0.045 ng/mL High alert 1.210 TROPONIN-I Result Comment: Critical Result(s) Called at: 14:24:52 03/28/2018 by: Susan Holguin TROPONIN-I EXPECTED VALUES <0.045 Negative 0.045 - 0.590 Consistent with Cardiac Damage > OR = 0.600 Critical Value Not every elevated troponin is indicative of CO. These values should be used with clinical judgement in examining the patient's clinical picture for diagnosis. To establish a diagnosis of CO versus myocardial injury, there must be a demonstrated rise and/or fall in the troponin values, in addition to ischemic symptoms, EKG changes, new regional wall motion abnormality, and/or angiographical evidence. PLEASE NOTE: REFERENCE RANGES EDITED 17 Performed By: #### L500.2500, L501.4010 #### [facility] [address] [place], [address] CHEST 1 VIEW Observed: 03/28/2018 Status: F Source: [place] (PORTABLE) 1:39 PM [facility] REPOSITORY [facility] Imaging Services [address] [place] [id number] Chest 1 View (Portable) MR#: [id number] Acct: [id number] Name: NIRMAL KRUEGER Rep #: [id number] : 1935 M 82 From: Steve Wyatt MD PCP: Anthony Lovell MD Status: PRE ER Study: Chest 1 View (Portable) Date of Exam: 03/28/18 Exam# [id number] Ordering Dr: Mehrdad Valdez MD STUDY: X-RAY CHEST REASON FOR EXAM: Male, 82 years old. Chest pain. Weakness. TECHNIQUE: Single AP portable view of the chest. COMPARISON: Comparison is made with prior study dated December 02, 2016. FINDINGS: Hyperinflation. Scattered calcified granulomas. There is no demonstrated pleural abnormality. There is mild cardiac enlargement. Normal mediastinum and joey. There is prominence of the pulmonary hilar arteries without peripheral pulmonary vascular congestion, suggesting pulmonary hypertension. There is atherosclerotic calcification of the aortic arch with tortuosity. There are diffuse degenerative changes of the visualized thoracic spine. Normal visualized ribs, clavicles, and shoulders. There is no demonstrated abnormality of the visualized soft tissue structures of the upper abdomen. RAD/Chest 1 View (Portable) IMPRESSION: Scattered calcified granulomas. Hyperinflation. Prominence of the pulmonary hilar arteries. Electronically Signed: Steve Wyatt MD at 13:59 EST Tel [phone], Service support , CC: Anthony Lovell MD; Mehrdad Valdez MD Tap And Die Maker Technician: Signed PROGRESS Observed: 03/22/2018 Status: COMPLETED Source: [place] 12:00 PM [facility] REPOSITORY HNO ID: [id number] Author: Anthony Lovell Service: (none) Author Type: Physician Type: Progress Notes Filed: 03/23/2018 2:39 PM Note Text: Chief Complaint Patient presents with: F/U 3 Month: Thyroid, Depression, Gout HPI Nirmal Krueger is a 82 year old male who presents here today for a 3 mo f/u. Pt here today for a 3 mo f/u and to review labs. Requests handicap placard today to use when he needs it. Depression - Doing well with current regimen of medication. Notes that he seems to get tired easily and not sure if its due to boredom. Currently taking Prozac 40 mg once daily. Gout - Stable with use of medication and having no flare-ups in quite some time. Currently taking Allopurinol 300 mg 1 tab po once daily and Colchicine prn for flare ups. Derm - has concern about spots on his arms and if they are anything to be worried about. Back - Chronic lower back pain with x-ray on 12/13/17 showing severe DJD and facet disease, but seeming to get worse. Pain gets worse when he has to walk for a little while or standing for a prolonged period the pain will radiate down into his legs. Has never f/u with pain management and doesn't want to start seeing one to get put on narcotics and getting high on them. Does at home exercises to help with balance. Wants to know if his current regimen is ok or if it will start effecting his kidneys. Currently taking Ibuprofen 2 tabs in the am, Daypro 600 mg 2 tabs at lunch and 2 extra strength Aspirin, but admits that 3 work better to control symptoms. Obese - Continues to try to lose weight. Has lost 15 lbs since November. Will try to reduce his ice cream cone intake at night, food choices and continue exercising as tolerated. Thyroid - Stable on dosage, tolerating well and denies knowing if it makes any difference. Currently taking Levothyroxine 125 mcg once daily. Ears - Pt would like to have ear lavage done today, stating his left is the worst in was buildup. Notes that he knows there is nothing in his ears on exam but it makes a world of difference every 3 mo to get his ears cleaned. He can hear a lot better. Questions labs today asking if he needs to do anything different due to elevated Potassium. He drinks a lot of cranberry juice for kidney protection and wants to make sure this is ok. For his cholesterol he knows the reason why its elevated, he's been eating too many ice cream cones. Past medical history, appointments, medications, allergies reviewed. 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 - Unspecified hypothyroidism Previous Surgical History PAST SURGICAL HISTORY Procedure Laterality Date - COLONOSCOP W/ OR W/O [facility] SPE[facility] 06/2003 Colonoscopy - COLONOSCOP W/ OR W/O [facility] SPEC 07/04/08 - COLONOSCOP W/ OR W/O [facility] SPEC 07/05/2013 Colonoscopy - PAST SURGICAL HISTORY OF foot times 2 - PAST SURGICAL HISTORY OF BIlateral hip surgery Family History FAMILY HISTORY Problem Relation Age of Onset - Colon Cancer Father Patient Allergies ALLERGIES Allergen Reactions - Lipitor [Atorvastat* Myalgia Caused Mental thoughts as well, per patient. Current Medications Current Outpatient Prescriptions on File Prior to Visit: FLUoxetine HCl (PROZAC) 40 mg capsule Take 1 capsule by mouth once daily. oxaprozin (DAYPRO) 600 mg tablet Take 2 tablets by mouth once daily. levothyroxine (SYNTHROID) 125 mcg tablet Take 1 tablet by mouth once daily. colchicine (COLCRYS) 0.6 mg tablet Take 1 tablet by mouth once daily. allopurinol (ZYLOPRIM) 300 mg tablet Take 1 tablet by mouth once daily. irbesartan (AVAPRO) 150 mg tablet Take 1 tablet by mouth daily at bedtime. COMPOUNDED PRESCRIPTION Osteo Biflex COMPOUNDED PRESCRIPTION Vitamin B6 meclizine (ANTIVERT) 12.5 mg tab Take 1 tablet by mouth three times daily as needed (dizziness). Tadalafil (CIALIS) 5 mg tablet Take 5 mg by mouth. 1 hour prior to anticipated intercourse. No current facility-administered medications on file prior to visit. 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 EXAM: BP 114/72 (BP Site: Left Arm, BP Position: Sitting, BP Cuff Size: Regular Adult) Pulse 64 Resp 16 Wt (!) 139.7 kg (308 lb) BMI 39.54 kg/m? General Appearance: Well appearing, alert, in no acute distress, well-hydrated, well nourished. and Morbidly obese. Skin: Normal age spots on skin. Ears: External ears normal, canals clear. Back: Chronic pain due to severe djd, facet disease Lungs: lungs clear to auscultation. No wheezing, rhonchi, rales. Heart: RRR without murmur, gallop, or rubs. No ectopy. Health Maintenance List INFLUENZA(1) due on 01/14/2018 DIABETES SCREEN due on 03/13/2021 DTAP,TDAP,TD(2 - Td) due on 05/25/2021 LIPID SCREEN due on 03/13/2023 ADULT PREVNAR-13 Completed PNEUMOVAX AGE 65 AND OVER WITH 5YR LOOKBACK Completed Data reviewed Appointment on 03/13/2018 Component Date Value - TSH 03/13/2018 5.000 - Cholesterol, Total 03/13/2018 298* - Triglyceride 03/13/2018 70 - HDL Cholesterol 03/13/2018 38* - LDL Cholesterol 03/13/2018 246* - Non HDL Cholesterol 03/13/2018 260* - Fasting Time 03/13/2018 10 - VLDL Cholesterol 03/13/2018 14 - TC:HDL Ratio 03/13/2018 7.84* - LDL:HDL Ratio 03/13/2018 6.47* - Protein, Total 03/13/2018 6.9 - Albumin 03/13/2018 3.7* - Calcium 03/13/2018 9.5 - Bilirubin, Total 03/13/2018 0.3 - Alkaline Phosphatase 03/13/2018 48 - AST 03/13/2018 23 - Glucose 03/13/2018 116* - BUN 03/13/2018 35* - Creatinine 03/13/2018 1.63* - Sodium 03/13/2018 139 - Potassium 03/13/2018 5.2* - Chloride 03/13/2018 104 - CO2 03/13/2018 19* - Anion Gap 03/13/2018 16 - ALT 03/13/2018 11 - eGFR- 03/13/2018 49 - eGFR-All Other Races 03/13/2018 41 - Uric Acid 03/13/2018 5.9 ASSESSMENT/PLAN: 1. Spinal stenosis, lumbar region, without neurogenic claudication - ICD9: 724.02, ICD10: M48.061 (primary diagnosis) Chronic low back pain - Continue current medication regimen. - Suggested PT/Pain Management. Will talk to a friend about options - OXAPROZIN 600 MG TABLET 2. Other osteoarthritis of spine, lumbar region - ICD9: 721.3, ICD10: M47.896 - Continue current medication regimen. 3. Hypothyroidism, unspecified type - ICD9: 244.9, ICD10: E03.9 - Instructed patient on importance of taking on an empty stomach either first thing in the morning or at bedtime. - Continue current medication regimen. 4. Essential hypertension, benign - ICD9: 401.1, ICD10: I10 - good control - Continue current medication(s) - Recommended regular aerobic exercise. - Recommend home blood pressure monitoring, to bring results in on next visit - Goal of BP <130/80 5. Elevated cholesterol - ICD9: 272.0, ICD10: E78.00 - suboptimal control - D/C eating ice cream cone at night 6. Idiopathic gout, unspecified chronicity, unspecified site - ICD9: 274.9, ICD10: M10.00 - Continue current medication regimen. 7. Bilateral hearing loss, unspecified hearing loss type - ICD9: 389.9, ICD10: H91.93 - B/L ear lavage today 8. Need for vaccination - ICD9: V05.9, ICD10: Z23 - INFLUENZA SEASONAL HIGH DOSE AGE 65+ Follow up end of July before season gets busy, with labs. I agree with the Chief Complaint, ROS, and Past Histories independently gathered by the clinical biomedical equipment support specialist and the remaining scribed note accurately describes my personal service to the patient. Anthony Lovell MD The documentation for this note was completed by Suzanne Leblanc Ma acting as scribe for Anthony Lovell MD. March 22, 2018 12:03 PM. 82 year old male here for INACTIVATED INFLUENZA VACCINE. 1955-2105 Season Patient is identified by name and date of : Yes [] CONTRAINDICATIONS color enhanced section Age less than 6 months? No Allergy to eggs, chicken, chicken feathers, or chicken dander? No Allergy to thimerosal (a preservative) or formaldehyde, gelatin? No History of severe reaction to any vaccine component or a previous dose of influenza vaccination? No History of Guillain-Atkinson Syndrome within 6 weeks after a previous influenza vaccine? No Patient is not moderately or severely ill? No Current temperature greater or equal to 100.4F? No History of Bone Marrow Transplant prior 6 months or solid organ transplant in the past 3 months ? No History of fainting after a prior injection or medical procedure? No- ? If patient has fainted in the past, the CDC recommends sitting or lying down for 15 minutes after the vaccination. [] VERIFICATION color enhanced section Was the answer Yes for any of the above contraindications? No contraindications present. Acceptable to proceed with vaccine. Patient/guardian agrees the above answers are true to the best of their knowledge? Yes Flu vaccine information sheet given? Yes See immunization activity in [facility] for details of immunizations adminstered today. Patient age: [age] year old For The 5523-9070 Flu Season 6-35 months old: Fluzone 0.25 ml - IM (Preservative Free) 3 years of age: Fluzone 0.5 ml - IM (Preservative Free) 3 years and older: Fluzone 0.5 ml- IM-(with Preservatives) 65+ years old: 2-49 years old Fluzone High-Dose 0.5 ml - IM (Preservative Free) FLUMIST- intranasal REMEMBER: If patient is less than 9 years of age and this is the first vaccine of Influenza to be received in any flu season, they should receive a second dose in one months time. CNOV Observed: 03/22/2018 Status: COMPLETED Source: [place] 12:00 PM [facility] REPOSITORY Office Visit (FAMPWS) KRUEGERNIRMAL ([id number]) 1935 M Date Time Provider Department 03/22/18 12:00 PM [facility] During your visit today, we recorded the following information about you: Pulse Respiration Blood pressure Weight 64/minute 16/minute 114/72 139.7 kg Anthony Lovell MD 03/23/2018 2:39 PM Signed Chief Complaint Patient presents with: F/U 3 Month: Thyroid, Depression, Gout HPI Nirmal Diamond Bola is a 82 year old male who presents here today for a 3 mo f/u. Pt here today for a 3 mo f/u and to review labs. Requests handicap placard today to use when he needs it. Depression - Doing well with current regimen of medication. Notes that he seems to get tired easily and not sure if its due to boredom. Currently taking Prozac 40 mg once daily. Gout - Stable with use of medication and having no flare-ups in quite some time. Currently taking Allopurinol 300 mg 1 tab po once daily and Colchicine prn for flare ups. Derm - has concern about spots on his arms and if they are anything to be worried about. Back - Chronic lower back pain with x-ray on 12/13/17 showing severe DJD and facet disease, but seeming to get worse. Pain gets worse when he has to walk for a little while or standing for a prolonged period the pain will radiate down into his legs. Has never f/u with pain management and doesn't want to start seeing one to get put on narcotics and getting high on them. Does at home exercises to help with balance. Wants to know if his current regimen is ok or if it will start effecting his kidneys. Currently taking Ibuprofen 2 tabs in the am, Daypro 600 mg 2 tabs at lunch and 2 extra strength Aspirin, but admits that 3 work better to control symptoms. Obese - Continues to try to lose weight. Has lost 15 lbs since November. Will try to reduce his ice cream cone intake at night, food choices and continue exercising as tolerated. Thyroid - Stable on dosage, tolerating well and denies knowing if it makes any difference. Currently taking Levothyroxine 125 mcg once daily. Ears - Pt would like to have ear lavage done today, stating his left is the worst in was buildup. Notes that he knows there is nothing in his ears on exam but it makes a world of difference every 3 mo to get his ears cleaned. He can hear a lot better. Questions labs today asking if he needs to do anything different due to elevated Potassium. He drinks a lot of cranberry juice for kidney protection and wants to make sure this is ok. For his cholesterol he knows the reason why its elevated, he's been eating too many ice cream cones. Past medical history, appointments, medications, allergies reviewed. 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 - Unspecified hypothyroidism Previous Surgical History PAST SURGICAL HISTORY Procedure Laterality Date - COLONOSCOP W/ OR W/O [facility] SPEC 06/2003 Colonoscopy - COLONOSCOP W/ OR W/O [facility] SPE[facility] 07/04/08 - COLONOSCOP W/ OR W/O [facility] SPE[facility] 07/05/2013 Colonoscopy - PAST SURGICAL HISTORY OF foot times 2 - PAST SURGICAL HISTORY OF BIlateral hip surgery Family History FAMILY HISTORY Problem Relation Age of Onset - Colon Cancer Father Patient Allergies ALLERGIES Allergen Reactions - Lipitor [Atorvastat* Myalgia Caused Mental thoughts as well, per patient. Current Medications Current Outpatient Prescriptions on File Prior to Visit: FLUoxetine HCl (PROZAC) 40 mg capsule Take 1 capsule by mouth once daily. oxaprozin (DAYPRO) 600 mg tablet Take 2 tablets by mouth once daily. levothyroxine (SYNTHROID) 125 mcg tablet Take 1 tablet by mouth once daily. colchicine (COLCRYS) 0.6 mg tablet Take 1 tablet by mouth once daily. allopurinol (ZYLOPRIM) 300 mg tablet Take 1 tablet by mouth once daily. irbesartan (AVAPRO) 150 mg tablet Take 1 tablet by mouth daily at bedtime. COMPOUNDED PRESCRIPTION Osteo Biflex COMPOUNDED PRESCRIPTION Vitamin B6 meclizine (ANTIVERT) 12.5 mg tab Take 1 tablet by mouth three times daily as needed (dizziness). Tadalafil (CIALIS) 5 mg tablet Take 5 mg by mouth. 1 hour prior to anticipated intercourse. No current facility-administered medications on file prior to visit. 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 EXAM: BP 114/72 (BP Site: Left Arm, BP Position: Sitting, BP Cuff Size: Regular Adult) Pulse 64 Resp 16 Wt (!) 139.7 kg (308 lb) BMI 39.54 kg/m? General Appearance: Well appearing, alert, in no acute distress, well-hydrated, well nourished. and Morbidly obese. Skin: Normal age spots on skin. Ears: External ears normal, canals clear. Back: Chronic pain due to severe djd, facet disease Lungs: lungs clear to auscultation. No wheezing, rhonchi, rales. Heart: RRR without murmur, gallop, or rubs. No ectopy. Health Maintenance List INFLUENZA(1) due on 01/14/2018 DIABETES SCREEN due on 03/13/2021 DTAP,TDAP,TD(2 - Td) due on 05/25/2021 LIPID SCREEN due on 03/13/2023 ADULT PREVNAR-13 Completed PNEUMOVAX AGE 65 AND OVER WITH 5YR LOOKBACK Completed Data reviewed Appointment on 03/13/2018 Component Date Value - TSH 03/13/2018 5.000 - Cholesterol, Total 03/13/2018 298* - Triglyceride 03/13/2018 70 - HDL Cholesterol 03/13/2018 38* - LDL Cholesterol 03/13/2018 246* - Non HDL Cholesterol 03/13/2018 260* - Fasting Time 03/13/2018 10 - VLDL Cholesterol 03/13/2018 14 - TC:HDL Ratio 03/13/2018 7.84* - LDL:HDL Ratio 03/13/2018 6.47* - Protein, Total 03/13/2018 6.9 - Albumin 03/13/2018 3.7* - Calcium 03/13/2018 9.5 - Bilirubin, Total 03/13/2018 0.3 - Alkaline Phosphatase 03/13/2018 48 - AST 03/13/2018 23 - Glucose 03/13/2018 116* - BUN 03/13/2018 35* - Creatinine 03/13/2018 1.63* - Sodium 03/13/2018 139 - Potassium 03/13/2018 5.2* - Chloride 03/13/2018 104 - CO2 03/13/2018 19* - Anion Gap 03/13/2018 16 - ALT 03/13/2018 11 - eGFR- 03/13/2018 49 - eGFR-All Other Races 03/13/2018 41 - Uric Acid 03/13/2018 5.9 ASSESSMENT/PLAN: 1. Spinal stenosis, lumbar region, without neurogenic claudication - ICD9: 724.02, ICD10: M48.061 (primary diagnosis) Chronic low back pain - Continue current medication regimen. - Suggested PT/Pain Management. Will talk to a friend about options - OXAPROZIN 600 MG TABLET 2. Other osteoarthritis of spine, lumbar region - ICD9: 721.3, ICD10: M47.896 - Continue current medication regimen. 3. Hypothyroidism, unspecified type - ICD9: 244.9, ICD10: E03.9 - Instructed patient on importance of taking on an empty stomach either first thing in the morning or at bedtime. - Continue current medication regimen. 4. Essential hypertension, benign - ICD9: 401.1, ICD10: I10 - good control - Continue current medication(s) - Recommended regular aerobic exercise. - Recommend home blood pressure monitoring, to bring results in on next visit - Goal of BP <130/80 5. Elevated cholesterol - ICD9: 272.0, ICD10: E78.00 - suboptimal control - D/C eating ice cream cone at night 6. Idiopathic gout, unspecified chronicity, unspecified site - ICD9: 274.9, ICD10: M10.00 - Continue current medication regimen. 7. Bilateral hearing loss, unspecified hearing loss type - ICD9: 389.9, ICD10: H91.93 - B/L ear lavage today 8. Need for vaccination - ICD9: V05.9, ICD10: Z23 - INFLUENZA SEASONAL HIGH DOSE AGE 65+ Follow up end of July before season gets busy, with labs. I agree with the Chief Complaint, ROS, and Past Histories independently gathered by the clinical biomedical equipment support specialist and the remaining scribed note accurately describes my personal service to the patient. Anthony Lovell MD The documentation for this note was completed by Suzanne Leblanc Ma acting as scribe for Anthony Lovell MD. March 22, 2018 12:03 PM. 82 year old male here for INACTIVATED INFLUENZA VACCINE. 3087-0860 Season Patient is identified by name and date of : Yes [] CONTRAINDICATIONS color enhanced section Age less than 6 months? No Allergy to eggs, chicken, chicken feathers, or chicken dander? No Allergy to thimerosal (a preservative) or formaldehyde, gelatin? No History of severe reaction to any vaccine component or a previous dose of influenza vaccination? No History of Guillain-Atkinson Syndrome within 6 weeks after a previous influenza vaccine? No Patient is not moderately or severely ill? No Current temperature greater or equal to 100.4F? No History of Bone Marrow Transplant prior 6 months or solid organ transplant in the past 3 months ? No History of fainting after a prior injection or medical procedure? No- ? If patient has fainted in the past, the CDC recommends sitting or lying down for 15 minutes after the vaccination. [] VERIFICATION color enhanced section Was the answer Yes for any of the above contraindications? No contraindications present. Acceptable to proceed with vaccine. Patient/guardian agrees the above answers are true to the best of their knowledge? Yes Flu vaccine information sheet given? Yes See immunization activity in [facility] for details of immunizations adminstered today. Patient age: [age] year old For The 7377-7549 Flu Season 6-35 months old: Fluzone 0.25 ml - IM (Preservative Free) 3 years of age: Fluzone 0.5 ml - IM (Preservative Free) 3 years and older: Fluzone 0.5 ml- IM-(with Preservatives) 65+ years old: 2-49 years old Fluzone High-Dose 0.5 ml - IM (Preservative Free) FLUMIST- intranasal REMEMBER: If patient is less than 9 years of age and this is the first vaccine of Influenza to be received in any flu season, they should receive a second dose in one months time. Referring Provider: SELF [200] Allergies As of Date: 03/22/2018 Noted Allergy Reaction LIPITOR (ATORVASTATIN CALCIUM) 01/13/2017 17 - Myalgia Comments: Caused Mental thoughts as well, per patient. Date Reviewed: 03/22/2018 Reviewed by: Suzanne Leblanc Ma - Fully Assessed Reason for Visit: F/U 3 Month [443] Cmt: Thyroid, Depression, Gout Imm/Inj [58] Cmt: Flu Vaccine Reason For Visit History Recorded Primary Visit Diagnosis:Spinal stenosis, lumbar region, without neurogenic claudication [M48.061] Other Visit Diagnoses:Other osteoarthritis of spine, lumbar region [M47.896] Hypothyroidism, unspecified type [E03.9] Essential hypertension, benign [I10] Elevated cholesterol [E78.00] Idiopathic gout, unspecified chronicity, unspecified site [M10.00] Bilateral hearing loss, unspecified hearing loss type [H91.93] Need for vaccination [Z23] Elevated glucose [R73.09] Order(s):oxaprozin (DAYPRO) 600 mg tabletTake 2 tablets by mouth once daily.Disp: 180 tabletRfl: 1 INFLUENZA SEASONAL HIGH DOSE AGE 65+ [[id number]] Order #: [id number] COMP METABOLIC PANEL [SQCMP] Order #: [id number] FUTURE LIPID PANEL BASIC [SQLIPB] Order #: [id number] FUTURE TSH BLD [SQTSH] Order #: [id number] FUTURE HGB A1C [[id number]] Order #: [id number] FUTURE Prescriptions as of 03/22/2018 Sig: OXAPROZIN 600 MG TABLET Take 2 tablets by mouth once * FLUOXETINE 40 MG CAPSULE Take 1 capsule by mouth once * LEVOTHYROXINE 125 MCG TABLET Take 1 tablet by mouth once d* COLCHICINE 0.6 MG TABLET Take 1 tablet by mouth once d* ALLOPURINOL 300 MG TABLET Take 1 tablet by mouth once d* IRBESARTAN 150 MG TABLET Take 1 tablet by mouth daily * COMPOUNDED PRESCRIPTION Osteo Biflex COMPOUNDED PRESCRIPTION Vitamin B6 Problem List As Of Date 03/22/2018 Noted Resolved Hypothyroidism [E03.9] INVALID FOR* BENIGN HYPERTENSION [I10] INVALID FOR* GOUT NOS [M10.9] INVALID FOR* OSTEITIS DEFORMANS NOS [M88.9] INVALID FOR* PERIPH VASCULAR DIS NOS [I73.9] INVALID FOR* Spinal Stenosis of Lumbar Region [M48.061] INVALID FOR* Perirectal abscess [K61.1] INVALID FOR*02/08/2012 Cellulitis of buttock, left [L03.317] INVALID FOR*08/16/2016 Elevated glucose [R73.09] INVALID FOR* Anemia, unspecified [D64.9] INVALID FOR* CKD (chronic kidney disease) Stage 3, GFR 30-59*INVALID FOR* Obesity, Class III, BMI 40-49.9 (morbid obesity*INVALID FOR* Ulcer of toe of left foot, limited to breakdown*INVALID FOR* Prescriptions ordered this encounter Disp Refills Start End OXAPROZIN 600 MG TABLET 180 * 1 03/22/2018 Route: ORAL Sig: Take 2 tablets by mouth once daily. Medications Discontinued During This Encounter meclizine (ANTIVERT) 12.5 mg tab 20 t* 2 05/02/2017 03/22/2018 Route: ORAL Sig: Take 1 tablet by mouth three times daily as needed (dizziness). Disc: Reason for discontinue is not on file. Tadalafil (CIALIS) 5 mg tablet 30 t* 2 12/31/2015 03/22/2018 Sig: Take 5 mg by mouth. 1 hour prior to anticipated intercourse. Disc: Reason for discontinue is not on file. oxaprozin (DAYPRO) 600 mg tablet 180 * 1 12/08/2017 03/22/2018 Route: ORAL Sig: Take 2 tablets by mouth once daily. Disc: Reason for discontinue is not on file. Disposition: Return in about 5 months (around 08/20/2018). Follow-up and Disposition History Recorded Letter Text [facility] [address] [place] [address] 03/22/2018 THIS IS A PRESCRIPTION FOR HANDICAPPED PARKING PERMIT Re: Nirmal Dara Krueger [address] [place] [address] The above named person requires a disability parking placard. DURATION: LIFETIME EXPIRATION: DATE + 5 YEARS Sincerely, Dr. Anthony Lovell MD Encounter Status:Closed by ANTHONY LOVELL MD on 03/23/18 COMP METABOLIC PANEL Collected: 03/13/2018 Status: F Source: [place] 8:52 AM [facility] REPOS[facility]ORY TYPE CODE TESTS RESULT OUT OF REFERENCE UNITS RANGE LAB TP 6.3-8.0 g/dL Protein, Total 6.9 LAB ALB 3.9-4.9 g/dL Low Albumin 3.7 LAB CA 8.5-10.2 mg/dL Calcium, Total 9.5 LAB TBIL 0.2-1.3 mg/dL Bilirubin, Total 0.3 LAB ALKP 38-113 U/L Alkaline Phosphatase 48 LAB AST 14-40 U/L AST 23 LAB GLU 74-99 mg/dL Glucose High 116 Result Comment: The [place] Diabetes Association (ADA) provides guidance for cutoff values for fasting glucose and random glucose. The ADA defines fasting as no caloric intake for at least 8 hours. Fas ting plasma glucose results between 100 to 125 mg/dL indicate increased risk for diabetes (prediabetes). Fasting plasma glucose results greater than or equal to 126 mg/dL meet the criteria for diagnosis of diabetes. In the absence of unequivocal hyperglycemia, results should be confirmed by repeat testing. In a patient with classic symptoms of hyperglycemia or hyperglycemic crisis, random plasma glucose results greater than or equal to 200 mg/dL meet the criteria for diagnosis of diabetes. Reference: Standards of Medical Care in Diabetes 2016, [place] [employer] Association. Diabetes Care. 2016.39(Suppl 1). LAB BUN 9-24 mg/dL BUN High 35 LAB CRET 0.73-1.22 mg/dL Creatinine High 1.63 LAB NA 136-144 mmol/L Sodium 139 LAB K 3.7-5.1 mmol/L Potassium High 5.2 LAB CL 97-105 mmol/L Chloride 104 LAB CO2 22-30 mmol/L Low CO2 19 LAB AGAP 9-18 mmol/L Anion Gap 16 LAB ALT 10-54 U/L ALT 11 LAB GFRAA eGFR- Amer. 49 LAB GFRNAA . eGFR-All Other Races 41 Result Comment: eGFR (Estimated GFR) Units of measure: mL/min/1.73 meters squared eGFR is derived from the reexpressed MDRD Study equation using the following parameters: serum creatinine, age, gender and race. The creatinine assay has been calibrated to be traceable to IDMS. An eGFR <60 mL/min/1.73m2 for >3 months is consistent with chronic kidney disease. Refer to KDOQI guidelines for clinical interpretation. In patients with unstable renal function, e.g. those with acute kidney injury, the eGFR may not accurately reflect actual GFR. Performed By: #### CMP, LIPB, URIC, TSH #### [facility] [address] [place], [place] [address] LIPID PANEL, BASIC Collected: 03/13/2018 Status: F Source: [place] 8:52 AM [facility] REPOSITORY TYPE CODE TESTS RESULT OUT OF REFERENCE UNITS RANGE LAB CHOL <200 mg/dL Cholesterol High 298 Result Comment: <200 mg/dL, Desirable 200-239 mg/dL, Borderline high >239 mg/dL, High LAB TRIGLY <150 mg/dL Triglyceride 70 Result Comment: <150 mg/dL, Normal 150-199 mg/dL, Borderline high 200-499 mg/dL, High >499 mg/dL, Very high LAB HDL >39 mg/dL HDL-Cholesterol Low 38 Result Comment: 40-59 mg/dL, Acceptable >59 mg/dL, High: Negative risk factor for coronary heart disease <40 mg/dL, Low: Positive risk factor for coronary heart disease LAB LDL <100 mg/dL LDL-Cholesterol High 246 Result Comment: <100 mg/dL, Optimal 100-129 mg/dL, Near optimal/above optimal 130-159 mg/dL, Borderline high 160-189 mg/dL, High >189 mg/dL, Very high Secondary prevention optimal LDL Cholesterol levels are recommended to be < 70 mg/dL LAB NONHDL <130 mg/dL Non HDL High Cholesterol 260 Result Comment: <130 mg/dL, Optimal 130-159 mg/dL, Near optimal/above optimal 160-189 mg/dL, Borderline high 190-219 mg/dL, High >219 mg/dL, Very high Secondary prevention optimal non HDL Cholesterol levels are recommended to be < 100 mg/dL LAB FT hrs Fasting Time 10 LAB VLDL <30 mg/dL VLDL Cholesterol 14 LAB TCHDL <5.10 High TC:HDL Ratio 7.84 LAB LDLHDL <2.54 High LDL:HDL Ratio 6.47 Result Comment: Reference: 1. National Cholesterol Education Program ATP III Guideline At-A-Glance Quick Desk Reference: National Heart, Lung, and Blood [place]. National Institutes of Health. 2001: NIH Publication No. 01-3305. 2. An International Atherosclerosis Society position paper: global recommendations for the management of dyslipidemia: executive summary, Atherosclerosis. 2014: 232(2):410-413. Performed By: #### CMP, LIPB, URIC, TSH #### [facility] [address] [place] [id number] URIC ACID Collected: 03/13/2018 Status: F Source: [place] 8:52 AM [facility] REPOSITORY TYPE CODE TESTS RESULT OUT OF RANGE REFERENCE UNITS LAB URIC 4.0-8.1 mg/dL Uric Acid 5.9 Performed By: #### CMP, LIPB, URIC, TSH #### [facility] [address] [place] [address] TSH Collected: 03/13/2018 Status: F Source: [place] 8:52 AM [facility] REPOSITORY TYPE CODE TESTS RESULT OUT OF RANGE REFERENCE UNITS LAB TSH 0.400-5.500 uU/mL TSH 5.000 Performed By: #### CMP, LIPB, URIC, TSH #### [facility] [address] [place], [place] [address] HIP Observed: 02/27/2018 Status: F Source: [facility] 2:49 PM [facility] REPOSITORY Final Report Accession No: [id number] Performed: Feb 27 2018 2:49PM Examination: LEFT HIP EXAM: HIP RIGHT 2 VIEW, HIP LEFT 2 VIEW: REASON FOR EXAM: Pain/Tenderness. TECHNIQUE: AP and external rotation views of both hips. COMPARISON: None. FINDINGS: No fracture or dislocation is seen. 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 No evidence of prosthetic loosening is suggested. There is prominent bilateral inguinal and femoral vascular calcification. Portion of the left pelvic osseous structures included reveal the trabecular marking thickening and mild expansile appearance which would question Paget's disease finding. Slight similar appearance seen in the right inferior pubic ramus laterally. IMPRESSION: No acute fracture or dislocation. Bilateral hip replacements which appear intact. Prominent bilateral vascular calcifications. 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 Clinical and historical correlation as well as comparison with any old studies would be warranted. Interpreting Physician: MIKY ARAUJO M.D. Trans: gvanho : cc: HIP Observed: 02/27/2018 Status: F Source: [facility] 2:49 PM [facility] REPOSITORY Final Report Accession No: [id number] Performed: Feb 27 2018 2:49PM Examination: RIGHT HIP EXAM: HIP RIGHT 2 VIEW, HIP LEFT 2 VIEW: REASON FOR EXAM: Pain/Tenderness. TECHNIQUE: AP and external rotation views of both hips. COMPARISON: None. FINDINGS: No fracture or dislocation is seen. 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 No evidence of prosthetic loosening is suggested. There is prominent bilateral inguinal and femoral vascular calcification. Portion of the left pelvic osseous structures included reveal the trabecular marking thickening and mild expansile appearance which would question Paget's disease finding. Slight similar appearance seen in the right inferior pubic ramus laterally. IMPRESSION: No acute fracture or dislocation. Bilateral hip replacements which appear intact. Prominent bilateral vascular calcifications. 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 Clinical and historical correlation as well as comparison with any old studies would be warranted. Interpreting Physician: MIKY ARAUJO M.D. Trans: gvanho : cc: CNOV Observed: 12/27/2017 Status: COMPLETED Source: [place] 8:55 AM [facility] REPOSITORY Office Visit (PODIWS) NIRMAL KRUEGER ([id number]) 1935 M Date Time Provider Department 12/27/17 8:55 AM TRINA CAMPOVERDE PODBESSY During your visit today, we recorded the following information about you: Trina Campoverde DPM 12/27/2017 9:03 AM Signed ? Trina Campoverde DPM Department of Podiatry [address] [place] [address] Dept: [phone] Dept 12/27/2017 Follow Up Podiatric Office Visit: HPI: Nirmal Dara Bola is a 82 year old male. Patient presents for follow up for 5 weeks post matrixectomy, L medial hallux. Patient has no complaints of pain. He states his toe is healed now. 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 EYES: No diplopia or blurry vision. CARDIOVASCULAR: No chest pain, dyspnea, palpitations, orthopnea, PND, ankle edema. PULM: No dyspnea, unexplained cough. GI: No dysphagia/odynophagia, problematic reflux, constipation, diarrhea, changes in stool habits, hematochezia, melena. : No new urinary complaints, including dysuria, gross hematuria or pyuria. NEURO: No new balance problems, peripheral weakness/paresthesias or numbness of concern. MUSC-SKEL: No new joint pain, swelling, or erythema. PSY: No concerns regarding depression, anxiety or panic. INTEGUMENTARY: No new skin changes (rash, new or changing mole, new growth);l Physical Exam: Constitutional: Pt is a well developed 82 year old male who is alert, oriented and cooperative Eyes: Following during examination. No redness or drainage. Respiratory: RR normal and nonlabored. Even breathing. No evidence of distress or shortness of breath. Psychology: Patient is engaged during conversation. Normal affect and mood. Does not appear depressed or anxious during encounter. Vascular: Dorsalis pedis and posterior tibial pulses faintly palpable left Capillary Fill time < 5 seconds to digits 1-5 left Skin temperature warm to warm proximal to distal left Hair growth present to digits Neurological: diminished light touch/epicritic sensation Dermatological: Skin appears well hydrated and supple. good color, texture, turgor. Left hallux medial nail border is healed. There are no signs of infection. No ulceration or signs of infection to left hallux or left first metatarsal Musculoskeletal/Orthopaedic: Patient has no pain to palpation of left foot Foot type is neutral structurally AJ ROM is decreased with knee extended and flexed 1st MPJ is decreased when loaded and no pain or crepitus are noted with ROM. MTJ, STJ are full and free of pain and crepitus. +5/5 muscle strength dorsiflexion, plantarflexion, inversion, eversion left Moderate bunion is present to left foot ASSESSMENT: (S91.109A) Open wound of toe, initial encounter (primary encounter diagnosis) (M20.12) Acquired hallux valgus of left foot (L97.521) Ulcer of toe of left foot, limited to breakdown of skin (HCC) PLAN: 1. History and physical examination performed. 2. Discussed ingrowing toenail of left hallux medial border. Wound is now healed without signs of infection. Patient understands risk of recurrence. He is satisfied. He wants to be released at this time as he feels he is healed 3. Discussed large bunion of left foot as potential source of ulceration formation. No ulceration on exam. Discussed past xrays. No bone infection. He wishes to monitor with no further imaging. Offered bunion splint/gel padding but he declined. 4. He can f/u prn. Trina Campoverde DPM Referring Provider: TRINA CAMPOVERDE [[id number]] Allergies As of Date: 12/27/2017 Noted Allergy Reaction LIPITOR (ATORVASTATIN CALCIUM) 01/13/2017 17 - Myalgia Comments: Caused Mental thoughts as well, per patient. Date Reviewed: 12/27/2017 Reviewed by: Ginger Diana RN - Fully Assessed Reason for Visit: Follow Up [171] Primary Visit Diagnosis:Open wound of toe, initial encounter [S91.109A] Other Visit Diagnoses:Acquired hallux valgus of left foot [M20.12] Ulcer of toe of left foot, limited to breakdown of skin (HCC) [L97.521] Prescriptions as of 12/27/2017 Sig: OXAPROZIN 600 MG TABLET Take 2 tablets by mouth once * FLUOXETINE 40 MG CAPSULE Take 1 capsule by mouth once * LEVOTHYROXINE 125 MCG TABLET Take 1 tablet by mouth once d* COLCHICINE 0.6 MG TABLET Take 1 tablet by mouth once d* ALLOPURINOL 300 MG TABLET Take 1 tablet by mouth once d* IRBESARTAN 150 MG TABLET Take 1 tablet by mouth daily * MECLIZINE 12.5 MG TABLET Take 1 tablet by mouth three * TADALAFIL 5 MG TABLET Take 5 mg by mouth. 1 hour pr* COMPOUNDED PRESCRIPTION Osteo Biflex COMPOUNDED PRESCRIPTION Vitamin B6 Problem List As Of Date 12/27/2017 Noted Resolved Hypothyroidism [E03.9] INVALID FOR* BENIGN HYPERTENSION [I10] INVALID FOR* GOUT NOS [M10.9] INVALID FOR* OSTEITIS DEFORMANS NOS [M88.9] INVALID FOR* PERIPH VASCULAR DIS NOS [I73.9] INVALID FOR* Spinal Stenosis of Lumbar Region [M48.061] INVALID FOR* Perirectal abscess [K61.1] INVALID FOR*02/08/2012 Cellulitis of buttock, left [L03.317] INVALID FOR*08/16/2016 Elevated glucose [R73.09] INVALID FOR* Anemia, unspecified [D64.9] INVALID FOR* CKD (chronic kidney disease) Stage 3, GFR 30-59*INVALID FOR* Obesity, Class III, BMI 40-49.9 (morbid obesity*INVALID FOR* Ulcer of toe of left foot, limited to breakdown*INVALID FOR* Disposition: Return if symptoms worsen or fail to improve. Follow-up and Disposition History Recorded Encounter Status:Closed by TRINA CAMPOVERDE DPM on 12/27/17 PROGRESS Observed: 12/27/2017 Status: COMPLETED Source: [place] 8:52 AM [facility] REPOSITORY HNO ID: [id number] Author: Trina Campoverde Service: (none) Author Type: Physician Type: Progress Notes Filed: 12/27/2017 9:03 AM Note Text: ? Trina Campoverde DPM Department of Podiatry [address] [facility] [address] Dept: [phone] Dept 12/27/2017 Follow Up Podiatric Office Visit: HPI: Nirmal Krueger is a 82 year old male. Patient presents for follow up for 5 weeks post matrixectomy, L medial hallux. Patient has no complaints of pain. He states his toe is healed now. 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 EYES: No diplopia or blurry vision. CARDIOVASCULAR: No chest pain, dyspnea, palpitations, orthopnea, PND, ankle edema. PULM: No dyspnea, unexplained cough. GI: No dysphagia/odynophagia, problematic reflux, constipation, diarrhea, changes in stool habits, hematochezia, melena. : No new urinary complaints, including dysuria, gross hematuria or pyuria. NEURO: No new balance problems, peripheral weakness/paresthesias or numbness of concern. MUSC-SKEL: No new joint pain, swelling, or erythema. PSY: No concerns regarding depression, anxiety or panic. INTEGUMENTARY: No new skin changes (rash, new or changing mole, new growth);l Physical Exam: Constitutional: Pt is a well developed 82 year old male who is alert, oriented and cooperative Eyes: Following during examination. No redness or drainage. Respiratory: RR normal and nonlabored. Even breathing. No evidence of distress or shortness of breath. Psychology: Patient is engaged during conversation. Normal affect and mood. Does not appear depressed or anxious during encounter. Vascular: Dorsalis pedis and posterior tibial pulses faintly palpable left Capillary Fill time < 5 seconds to digits 1-5 left Skin temperature warm to warm proximal to distal left Hair growth present to digits Neurological: diminished light touch/epicritic sensation Dermatological: Skin appears well hydrated and supple. good color, texture, turgor. Left hallux medial nail border is healed. There are no signs of infection. No ulceration or signs of infection to left hallux or left first metatarsal Musculoskeletal/Orthopaedic: Patient has no pain to palpation of left foot Foot type is neutral structurally AJ ROM is decreased with knee extended and flexed 1st MPJ is decreased when loaded and no pain or crepitus are noted with ROM. MTJ, STJ are full and free of pain and crepitus. +5/5 muscle strength dorsiflexion, plantarflexion, inversion, eversion left Moderate bunion is present to left foot ASSESSMENT: (S91.109A) Open wound of toe, initial encounter (primary encounter diagnosis) (M20.12) Acquired hallux valgus of left foot (L97.521) Ulcer of toe of left foot, limited to breakdown of skin (HCC) PLAN: 1. History and physical examination performed. 2. Discussed ingrowing toenail of left hallux medial border. Wound is now healed without signs of infection. Patient understands risk of recurrence. He is satisfied. He wants to be released at this time as he feels he is healed 3. Discussed large bunion of left foot as potential source of ulceration formation. No ulceration on exam. Discussed past xrays. No bone infection. He wishes to monitor with no further imaging. Offered bunion splint/gel padding but he declined. 4. He can f/u prn. Trina Campoverde, DPM XR LUMBAR 3V Observed: 12/13/2017 Status: F Source: [place] AP/LAT/L5-S1 10:10 AM [facility] REPOSITORY * * *Final Report* * * DATE OF EXAM: Dec 13 2017 10:10AM [id number] [id number] - XR LUMBAR 3V AP/LAT/L5-S1 / PROCEDURE REASON: Spinal stenosis, lumbar region without neurogenic claudication * * * * Physician Interpretation * * * * EXAM: LUMBAR SPINE, 3 VIEWS CLINICAL: 82-year-old male with spinal stenosis and claudication TECHNIQUE: AP, lateral coned down lateral COMPARISON: 10/08/2008 RESULTS: Counting reference: The iliac crest level is considered L4.L5 or the first vertebrae proximal to the sacrum is considered L5. Mild curve convex right centered at L3. Severe disc space narrowing in the visualized thoracic and throughout the lumbar spine with osteophytes anteriorly throughout the lumbar spine mild retrolisthesis of L2 in relation L3 and of L3 in relation L4. 14 mm anterolisthesis of L5 relation S1. Facet degenerative changes throughout the lumbar spine with hypertrophic changes at L4/L5 and L5/S1. Vertebral bodies and pedicles are intact. Extensive abdominal aortic calcifications are present. IMPRESSION: SEVERE DEGENERATIVE DISC AND FACET DISEASE PROGRESSED SINCE THE PREVIOUS EXAMINATION WITH INCREASE IN ANTEROLISTHESIS OF L5 RELATION S1 SINCE THE PREVIOUS EXAM. Tap And Die Maker Technician: JAMES Transcribe Date/Time: Dec 13 2017 11:54A Dictated by : SHERIF LINDSAY MD This examination was interpreted and the report reviewed and electronically signed by: SHERIF LINDSAY MD on Dec 13 2017 11:57AM EST [id number] Observed: 12/13/2017 Status: COMPLETED Source: [place] 9:55 AM [facility] REPOSITORY HNO ID: [id number] Author: Jailyn Smith (Rt) Danielito Martinez Service: (none) Author Type: Applications Systems Analyst Type: Progress Notes Filed: 12/13/2017 10:09 AM Note Text: Radiology Service Progress Note PATIENT NAME: Nirmal Krueger DATE OF SERVICE: December 13, 2017 TIME: 9:55 AM PATIENT IDENTITY VERIFICATION COMPLETED USING TWO (2) METHODS: Patient confirmed name verbally and Date of . PATIENT GENDER DATA: Male PATIENT RELEVANT IMPLANT DATA REVIEWED: Not Applicable RADIOLOGY DEPARTMENT: General X-ray: Exam(s) Completed: Spine X-Ray(s): Lumbar AP / LAT / L5-S1 PERIPHERAL IV DATA: Not applicable SIGNED BY: RT Alda December 13, 2017 9:55 AM PROGRESS Observed: 12/13/2017 Status: COMPLETED Source: [place] 9:23 AM [facility] REPOSITORY HNO ID: [id number] Author: Trina Campoverde Service: (none) Author Type: Physician Type: Progress Notes Filed: 12/13/2017 9:54 PM Note Text: ? Trina Campoverde DPM Department of Podiatry [address] [facility] [address] Dept: [phone] Dept 12/13/2017 Follow Up Podiatric Office Visit: HPI: Nirmal Krueger is a 82 year old male. Patient presents for follow up for matrixectomy, L hallux medial border. He is 22 days post procedure. Patient denies pain. He states there is still some drainage and redness. He denies n/v/f/c. 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 EYES: No diplopia or blurry vision. CARDIOVASCULAR: No chest pain, dyspnea, palpitations, orthopnea, PND, ankle edema. PULM: No dyspnea, unexplained cough. GI: No dysphagia/odynophagia, problematic reflux, constipation, diarrhea, changes in stool habits, hematochezia, melena. : No new urinary complaints, including dysuria, gross hematuria or pyuria. NEURO: No new balance problems, peripheral weakness/paresthesias or numbness of concern. MUSC-SKEL: No new joint pain, swelling, or erythema. PSY: No concerns regarding depression, anxiety or panic. INTEGUMENTARY: Matrixectomy of left hallux medial border Physical Exam: Constitutional: Pt is a well developed 82 year old male who is alert, oriented and cooperative Eyes: Following during examination. No redness or drainage. Respiratory: RR normal and nonlabored. Even breathing. No evidence of distress or shortness of breath. Psychology: Patient is engaged during conversation. Normal affect and mood. Does not appear depressed or anxious during encounter. Vascular: Dorsalis pedis and posterior tibial pulses faintly palpable as left Capillary Fill time < 5 seconds to digits 1-5 left Skin temperature warm to warm proximal to distal left Hair growth present to digits Neurological: intact light touch/epicritic sensation Dermatological: Skin appears well hydrated and supple. good color, texture, turgor. Ulcer of left 1st metatarsal remains healed. .Left hallux medial nail border appears to be healing without any signs of infection. The left hallux toenail has very minimal pain. Musculoskeletal/Orthopaedic: Patient has no pain to palpation of left foot Foot type is neutral structurally AJ ROM is full with knee extended and flexed 1st MPJ is full when loaded and no pain or crepitus are noted with ROM. MTJ, STJ are full and free of pain and crepitus. +5/5 muscle strength dorsiflexion, plantarflexion, inversion, eversion left There is moderate bunion present to left foot ASSESSMENT: (S91.109A) Open wound of toe, initial encounter (primary encounter diagnosis) (L97.521) Ulcer of toe of left foot, limited to breakdown of skin (HCC) (M20.12) Acquired hallux valgus of left foot PLAN: 1. History and physical examination performed. 2. Patient was examined and informed of current findings 3. His ulceration is fully healed without signs of infection. Reviewed xrays from last week. There is moderate bunion but no plain film evidence of osteomyelitis. Reviewed blood work from November 29. Mild elevation of inflammatory markers. Discussed repeat labs but patient elected to monitor. 4. Medial nail border s/p matrixectomy continues to heal without infection. There is very small area of tenderness and the nail was debrided in this location and no further pain. 5. Patient very pleased with outcome. 6. f/u in 2 weeks to check progress on matrixectomy. 7. Patient to continue with wider shoes for bunion Trina Campoverde DPM CNOV Observed: 12/13/2017 Status: COMPLETED Source: [place] 9:10 AM [facility] REPOSITORY Office Visit (PODIWS) NIRMAL KRUEGER ([id number]) 1935 M Date Time Provider Department 12/13/17 9:10 AM TRINA CAMPOVERDE During your visit today, we recorded the following information about you: Trina Campoverde DPM 12/13/2017 9:54 PM Signed ? Trina Campoverde DPM Department of Podiatry [address] [place] [id number] Dept: [phone] Dept 12/13/2017 Follow Up Podiatric Office Visit: HPI: Nirmla Diamond Bola is a 82 year old male. Patient presents for follow up for matrixectomy, L hallux medial border. He is 22 days post procedure. Patient denies pain. He states there is still some drainage and redness. He denies n/v/f/c. 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 EYES: No diplopia or blurry vision. CARDIOVASCULAR: No chest pain, dyspnea, palpitations, orthopnea, PND, ankle edema. PULM: No dyspnea, unexplained cough. GI: No dysphagia/odynophagia, problematic reflux, constipation, diarrhea, changes in stool habits, hematochezia, melena. : No new urinary complaints, including dysuria, gross hematuria or pyuria. NEURO: No new balance problems, peripheral weakness/paresthesias or numbness of concern. MUSC-SKEL: No new joint pain, swelling, or erythema. PSY: No concerns regarding depression, anxiety or panic. INTEGUMENTARY: Matrixectomy of left hallux medial border Physical Exam: Constitutional: Pt is a well developed 82 year old male who is alert, oriented and cooperative Eyes: Following during examination. No redness or drainage. Respiratory: RR normal and nonlabored. Even breathing. No evidence of distress or shortness of breath. Psychology: Patient is engaged during conversation. Normal affect and mood. Does not appear depressed or anxious during encounter. Vascular: Dorsalis pedis and posterior tibial pulses faintly palpable as left Capillary Fill time < 5 seconds to digits 1-5 left Skin temperature warm to warm proximal to distal left Hair growth present to digits Neurological: intact light touch/epicritic sensation Dermatological: Skin appears well hydrated and supple. good color, texture, turgor. Ulcer of left 1st metatarsal remains healed. .Left hallux medial nail border appears to be healing without any signs of infection. The left hallux toenail has very minimal pain. Musculoskeletal/Orthopaedic: Patient has no pain to palpation of left foot Foot type is neutral structurally AJ ROM is full with knee extended and flexed 1st MPJ is full when loaded and no pain or crepitus are noted with ROM. MTJ, STJ are full and free of pain and crepitus. +5/5 muscle strength dorsiflexion, plantarflexion, inversion, eversion left There is moderate bunion present to left foot ASSESSMENT: (S91.109A) Open wound of toe, initial encounter (primary encounter diagnosis) (L97.521) Ulcer of toe of left foot, limited to breakdown of skin ([facility]) (M20.12) Acquired hallux valgus of left foot PLAN: 1. History and physical examination performed. 2. Patient was examined and informed of current findings 3. His ulceration is fully healed without signs of infection. Reviewed xrays from last week. There is moderate bunion but no plain film evidence of osteomyelitis. Reviewed blood work from November 29. Mild elevation of inflammatory markers. Discussed repeat labs but patient elected to monitor. 4. Medial nail border s/p matrixectomy continues to heal without infection. There is very small area of tenderness and the nail was debrided in this location and no further pain. 5. Patient very pleased with outcome. 6. f/u in 2 weeks to check progress on matrixectomy. 7. Patient to continue with wider shoes for bunion Trina Campoverde DPM Referring Provider: TRINA CAMPOVERDE [[id number]] Allergies As of Date: 12/13/2017 Noted Allergy Reaction LIPITOR (ATORVASTATIN CALCIUM) 01/13/2017 17 - Myalgia Comments: Caused Mental thoughts as well, per patient. Date Reviewed: 12/13/2017 Reviewed by: Ginger Diana RN - Fully Assessed Reason for Visit: Recheck [92] Primary Visit Diagnosis:Open wound of toe, initial encounter [S91.109A] Other Visit Diagnoses:Ulcer of toe of left foot, limited to breakdown of skin (HCC) [L97.521] Acquired hallux valgus of left foot [M20.12] Prescriptions as of 12/13/2017 Sig: OXAPROZIN 600 MG TABLET Take 2 tablets by mouth once * FLUOXETINE 40 MG CAPSULE Take 1 capsule by mouth once * LEVOTHYROXINE 125 MCG TABLET Take 1 tablet by mouth once d* COLCHICINE 0.6 MG TABLET Take 1 tablet by mouth once d* ALLOPURINOL 300 MG TABLET Take 1 tablet by mouth once d* IRBESARTAN 150 MG TABLET Take 1 tablet by mouth daily * MECLIZINE 12.5 MG TABLET Take 1 tablet by mouth three * TADALAFIL 5 MG TABLET Take 5 mg by mouth. 1 hour pr* COMPOUNDED PRESCRIPTION Osteo Biflex COMPOUNDED PRESCRIPTION Vitamin B6 Problem List As Of Date 12/13/2017 Noted Resolved Hypothyroidism [E03.9] INVALID FOR* BENIGN HYPERTENSION [I10] INVALID FOR* GOUT NOS [M10.9] INVALID FOR* OSTEITIS DEFORMANS NOS [M88.9] INVALID FOR* PERIPH VASCULAR DIS NOS [I73.9] INVALID FOR* Spinal Stenosis of Lumbar Region [M48.061] INVALID FOR* Perirectal abscess [K61.1] INVALID FOR*02/08/2012 Cellulitis of buttock, left [L03.317] INVALID FOR*08/16/2016 Elevated glucose [R73.09] INVALID FOR* Anemia, unspecified [D64.9] INVALID FOR* CKD (chronic kidney disease) Stage 3, GFR 30-59*INVALID FOR* Obesity, Class III, BMI 40-49.9 (morbid obesity*INVALID FOR* Ulcer of toe of left foot, limited to breakdown*INVALID FOR* Disposition: Return in about 2 weeks (around 12/27/2017) for check L hallux. Follow-up and Disposition History Recorded Encounter Status:Closed by TRINA CAMPOVERDE DPM on 12/13/17 PROGRESS Observed: 12/08/2017 Status: COMPLETED Source: [place] 9:21 AM [facility] [place] REPOSITORY HNO ID: [id number] Author: Anthony Lovell Service: (none) Author Type: Physician Type: Progress Notes Filed: 12/09/2017 3:29 PM Note Text: Chief Complaint Patient presents with: F/U 3 Month HPI Nirmal Krueger is a 82 year old male who presents here today for 3 month. Thyroid: is taking Synthroid 125 mcg daily. Gout: uses Colchicine 0.6 mg as needed and Allopurinol 300 mg daily. Gout is mostly in the hands. HTN: Is taking Avapro 150 mg daily. Dizziness: Feels this is controlled with Prozac 40 mg daily. No longer using the Meclizine. Uses Daypro for pain, 2 tablets a day for pain. Follows with Dr. Campoverde, Eligibility Worker. Uses orthotic shoes. CKD: pt has stage 3 kidney failure. Back: pain for over 10 years, last evaluated 10 years ago. He states that he can walk 100 yards without pain, does not keep him up at night, no pain with sitting and driving. 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 He states standing for about 3 minutes does cause him discomfort. No Physical Therapy ever done. Takes 2 Aspirin every other day and ibuprofen every other day which helps some. Not interested in surgery. Not interested in MRI, but if that is needed he would consider it. Occ pain down the legs that started over the last month or two. He is not interested in doing PT, states that he does some exercises and stretches before getting out of bed and before bed every day. Cough: has had a cough for several years, no getting any worse. Is not bothersome. Past medical history, appointments, medications, allergies reviewed. 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 - Unspecified hypothyroidism Previous Surgical History PAST SURGICAL HISTORY Procedure Laterality Date - COLONOSCOP W/ OR W/O [facility] SPEC 06/2003 Colonoscopy - COLONOSCOP W/ OR W/O [facility] SPEC 07/04/08 - COLONOSCOP W/ OR W/O [facility] SPEC 07/05/2013 Colonoscopy - PAST SURGICAL HISTORY OF foot times 2 - PAST SURGICAL HISTORY OF BIlateral hip surgery Family History FAMILY HISTORY Problem Relation Age of Onset - Colon Cancer Father Patient Allergies ALLERGIES Allergen Reactions - Lipitor [Atorvastat* Myalgia Caused Mental thoughts as well, per patient. Current Medications Current Outpatient Prescriptions on File Prior to Visit: FLUoxetine HCl (PROZAC) 40 mg capsule Take 1 capsule by mouth once daily. levothyroxine (SYNTHROID) 125 mcg tablet Take 1 tablet by mouth once daily. colchicine (COLCRYS) 0.6 mg tablet Take 1 tablet by mouth once daily. allopurinol (ZYLOPRIM) 300 mg tablet Take 1 tablet by mouth once daily. irbesartan (AVAPRO) 150 mg tablet Take 1 tablet by mouth daily at bedtime. oxaprozin (DAYPRO) 600 mg tablet Take 2 tablets by mouth once daily. COMPOUNDED PRESCRIPTION Osteo Biflex COMPOUNDED PRESCRIPTION Vitamin B6 meclizine (ANTIVERT) 12.5 mg tab Take 1 tablet by mouth three times daily as needed (dizziness). Tadalafil (CIALIS) 5 mg tablet Take 5 mg by mouth. 1 hour prior to anticipated intercourse. No current facility-administered medications on file prior to visit. 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 EXAM: BP 128/78 Pulse 66 Resp 18 Wt (!) 142 kg (313 lb) BMI 40.19 kg/m? General Appearance: Well appearing, alert, in no acute distress, well-hydrated, well nourished. and Obese. Back: pain on palpation to lower lumbar Lungs: Lungs clear to auscultation. No wheezing, rhonchi, rales. Heart: RRR without murmur, gallop, or rubs. No ectopy. Health Maintenance List INFLUENZA(1) due on 01/14/2018 DIABETES SCREEN due on 07/25/2020 DTAP,TDAP,TD(2 - Td) due on 05/25/2021 LIPID SCREEN due on 07/25/2022 ADULT PREVNAR-13 Completed PNEUMOVAX AGE 65 AND OVER WITH 5YR LOOKBACK Completed Data reviewed Appointment on 11/29/2017 Component Date Value - WBC 11/29/2017 9.12 - RBC 11/29/2017 4.05* - Hemoglobin 11/29/2017 12.8* - Hematocrit 11/29/2017 41.7 - MCV 11/29/2017 103.0* - MCH 11/29/2017 31.6 - MCHC 11/29/2017 30.7 - RDW-CV 11/29/2017 16.3* - Platelet Count 11/29/2017 205 - MPV 11/29/2017 10.5 - Neut% 11/29/2017 67.0 - Abs Neut (ANC) 11/29/2017 6.11 - Lymph% 11/29/2017 17.0 - Abs Lymph 11/29/2017 1.55 - [place]% 11/29/2017 8.0 - Abs Surry 11/29/2017 0.73 - Eosin% 11/29/2017 2.0 - Abs Eosin 11/29/2017 0.18 - Baso% 11/29/2017 1.0 - Abs Baso 11/29/2017 0.09 - ANC(includeSEG+BAND) 11/29/2017 6.11 - [place]% 11/29/2017 3.0 - Myelo% 11/29/2017 2.0 - Anisocytosis 11/29/2017 Present - Left Shift 11/29/2017 Present - Ovalocytes 11/29/2017 Few - Platelet Estimate 11/29/2017 Platelet estimate adequate - Diff Type 11/29/2017 Manual Diff - WSR 11/29/2017 29* - CRP 11/29/2017 0.3 ASSESSMENT/PLAN: 1. Hypothyroidism, unspecified type - ICD9: 244.9, ICD10: E03.9 (primary diagnosis) - Instructed patient on importance of taking on an empty stomach either first thing in the morning or at bedtime. Continue current medications. Check labs in 6 months 2. Essential hypertension, benign - ICD9: 401.1, ICD10: I10 - good control - Continue current medication(s) - Recommended regular aerobic exercise. - Recommend home blood pressure monitoring, to bring results in on next visit - Goal of BP <140/90 3. Gout of hand, unspecified cause, unspecified chronicity, unspecified laterality - ICD9: 274.9, ICD10: M10.9 Continue current medications. 4. CKD (chronic kidney disease) Stage 3, GFR 30-59 ml/min - ICD9: 585.3, ICD10: N18.3 Continue to watch kidney function with labs 5. Obesity, Class III, BMI 40-49.9 (morbid obesity) (HCC) - ICD9: 278.01, ICD10: E66.01 Recommend healthy eating and regular exercise 6. Spinal stenosis, lumbar region, without neurogenic claudication - ICD9: 724.02, ICD10: M48.061 Check xray today - OXAPROZIN 600 MG TABLET Follow up in 3 months with fasting labs prior. Will call with xray results Anthony Lovell MD The documentation for this note was completed by Patricia Amos Ma acting as scribe for Anthony Lovell MD. December 08, 2017 9:21 AM. CNOV Observed: 12/08/2017 Status: COMPLETED Source: [place] 9:20 AM [facility] REPOSITORY Office Visit (FAMPWS) NIRMAL KRUEGER ([id number]) 1935 M Date Time Provider Department 12/08/17 9:20 AM ANTHONY LOVELL During your visit today, we recorded the following information about you: Pulse Respiration Blood pressure Weight 66/minute 18/minute 128/78 142 kg Anthony Lovell MD 12/09/2017 3:29 PM Signed Chief Complaint Patient presents with: F/U 3 Month HPI Nirmal Krueger is a 82 year old male who presents here today for 3 month. Thyroid: is taking Synthroid 125 mcg daily. Gout: uses Colchicine 0.6 mg as needed and Allopurinol 300 mg daily. Gout is mostly in the hands. HTN: Is taking Avapro 150 mg daily. Dizziness: Feels this is controlled with Prozac 40 mg daily. No longer using the Meclizine. Uses Daypro for pain, 2 tablets a day for pain. Follows with Dr. Campoverde, Eligibility Worker. Uses orthotic shoes. CKD: pt has stage 3 kidney failure. Back: pain for over 10 years, last evaluated 10 years ago. He states that he can walk 100 yards without pain, does not keep him up at night, no pain with sitting and driving. 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 He states standing for about 3 minutes does cause him discomfort. No Physical Therapy ever done. Takes 2 Aspirin every other day and ibuprofen every other day which helps some. Not interested in surgery. Not interested in MRI, but if that is needed he would consider it. Occ pain down the legs that started over the last month or two. He is not interested in doing PT, states that he does some exercises and stretches before getting out of bed and before bed every day. Cough: has had a cough for several years, no getting any worse. Is not bothersome. Past medical history, appointments, medications, allergies reviewed. 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 - Unspecified hypothyroidism Previous Surgical History PAST SURGICAL HISTORY Procedure Laterality Date - COLONOSCOP W/ OR W/O [facility] SPEC 06/2003 Colonoscopy - COLONOSCOP W/ OR W/O [facility] SPEC 07/04/08 - COLONOSCOP W/ OR W/O [facility] SPEC 07/05/2013 Colonoscopy - PAST SURGICAL HISTORY OF foot times 2 - PAST SURGICAL HISTORY OF BIlateral hip surgery Family History FAMILY HISTORY Problem Relation Age of Onset - Colon Cancer Father Patient Allergies ALLERGIES Allergen Reactions - Lipitor [Atorvastat* Myalgia Caused Mental thoughts as well, per patient. Current Medications Current Outpatient Prescriptions on File Prior to Visit: FLUoxetine HCl (PROZAC) 40 mg capsule Take 1 capsule by mouth once daily. levothyroxine (SYNTHROID) 125 mcg tablet Take 1 tablet by mouth once daily. colchicine (COLCRYS) 0.6 mg tablet Take 1 tablet by mouth once daily. allopurinol (ZYLOPRIM) 300 mg tablet Take 1 tablet by mouth once daily. irbesartan (AVAPRO) 150 mg tablet Take 1 tablet by mouth daily at bedtime. oxaprozin (DAYPRO) 600 mg tablet Take 2 tablets by mouth once daily. COMPOUNDED PRESCRIPTION Osteo Biflex COMPOUNDED PRESCRIPTION Vitamin B6 meclizine (ANTIVERT) 12.5 mg tab Take 1 tablet by mouth three times daily as needed (dizziness). Tadalafil (CIALIS) 5 mg tablet Take 5 mg by mouth. 1 hour prior to anticipated intercourse. No current facility-administered medications on file prior to visit. 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 EXAM: BP 128/78 Pulse 66 Resp 18 Wt (!) 142 kg (313 lb) BMI 40.19 kg/m? General Appearance: Well appearing, alert, in no acute distress, well-hydrated, well nourished. and Obese. Back: pain on palpation to lower lumbar Lungs: Lungs clear to auscultation. No wheezing, rhonchi, rales. Heart: RRR without murmur, gallop, or rubs. No ectopy. Health Maintenance List INFLUENZA(1) due on 01/14/2018 DIABETES SCREEN due on 07/25/2020 DTAP,TDAP,TD(2 - Td) due on 05/25/2021 LIPID SCREEN due on 07/25/2022 ADULT PREVNAR-13 Completed PNEUMOVAX AGE 65 AND OVER WITH 5YR LOOKBACK Completed Data reviewed Appointment on 11/29/2017 Component Date Value - WBC 11/29/2017 9.12 - RBC 11/29/2017 4.05* - Hemoglobin 11/29/2017 12.8* - Hematocrit 11/29/2017 41.7 - MCV 11/29/2017 103.0* - MCH 11/29/2017 31.6 - MCHC 11/29/2017 30.7 - RDW-CV 11/29/2017 16.3* - Platelet Count 11/29/2017 205 - MPV 11/29/2017 10.5 - Neut% 11/29/2017 67.0 - Abs Neut (ANC) 11/29/2017 6.11 - Lymph% 11/29/2017 17.0 - Abs Lymph 11/29/2017 1.55 - [place]% 11/29/2017 8.0 - Abs [place] 11/29/2017 0.73 - Eosin% 11/29/2017 2.0 - Abs Eosin 11/29/2017 0.18 - Baso% 11/29/2017 1.0 - Abs Baso 11/29/2017 0.09 - ANC(includeSEG+BAND) 11/29/2017 6.11 - [place]% 11/29/2017 3.0 - Myelo% 11/29/2017 2.0 - Anisocytosis 11/29/2017 Present - Left Shift 11/29/2017 Present - Ovalocytes 11/29/2017 Few - Platelet Estimate 11/29/2017 Platelet estimate adequate - Diff Type 11/29/2017 Manual Diff - WSR 11/29/2017 29* - CRP 11/29/2017 0.3 ASSESSMENT/PLAN: 1. Hypothyroidism, unspecified type - ICD9: 244.9, ICD10: E03.9 (primary diagnosis) - Instructed patient on importance of taking on an empty stomach either first thing in the morning or at bedtime. Continue current medications. Check labs in 6 months 2. Essential hypertension, benign - ICD9: 401.1, ICD10: I10 - good control - Continue current medication(s) - Recommended regular aerobic exercise. - Recommend home blood pressure monitoring, to bring results in on next visit - Goal of BP <140/90 3. Gout of hand, unspecified cause, unspecified chronicity, unspecified laterality - ICD9: 274.9, ICD10: M10.9 Continue current medications. 4. CKD (chronic kidney disease) Stage 3, GFR 30-59 ml/min - ICD9: 585.3, ICD10: N18.3 Continue to watch kidney function with labs 5. Obesity, Class III, BMI 40-49.9 (morbid obesity) ([facility]) - ICD9: 278.01, ICD10: E66.01 Recommend healthy eating and regular exercise 6. Spinal stenosis, lumbar region, without neurogenic claudication - ICD9: 724.02, ICD10: M48.061 Check xray today - OXAPROZIN 600 MG TABLET Follow up in 3 months with fasting labs prior. Will call with xray results Anthony Lovell MD The documentation for this note was completed by Patricia Amos Ma acting as scribe for Anthony Lovell MD. December 08, 2017 9:21 AM. Referring Provider: ANTHONY LOVELL [[id number]] Allergies As of Date: 12/08/2017 Noted Allergy Reaction LIPITOR (ATORVASTATIN CALCIUM) 01/13/2017 17 - Myalgia Comments: Caused Mental thoughts as well, per patient. Date Reviewed: 12/08/2017 Reviewed by: Patricia Amos Ma - Fully Assessed Reason for Visit: F/U 3 Month [443] Primary Visit Diagnosis:Hypothyroidism, unspecified type [E03.9] Other Visit Diagnoses:Essential hypertension, benign [I10] Gout of hand, unspecified cause, unspecified chronicity, unspecified laterality [M10.9] CKD (chronic kidney disease) Stage 3, GFR 30-59 ml/min [N18.3] Obesity, Class III, BMI 40-49.9 (morbid obesity) ([facility]) [E66.01] Spinal stenosis, lumbar region, without neurogenic claudication [M48.061] Order(s):oxaprozin (DAYPRO) 600 mg tabletTake 2 tablets by mouth once daily.Disp: 180 tabletRfl: 1 XR LUMBAR GENERAL 3V AP/LAT/L5-S1 [[id number]] Order #: [id number] FUTURE TSH BLD [SQTSH] Order #: [id number] FUTURE LIPID PANEL BASIC [SQLIPB] Order #: [id number] FUTURE COMP METABOLIC PANEL [SQCMP] Order #: [id number] FUTURE URIC ACID BLOOD [SQURIC] Order #: [id number] FUTURE Prescriptions as of 12/08/2017 Sig: OXAPROZIN 600 MG TABLET Take 2 tablets by mouth once * FLUOXETINE 40 MG CAPSULE Take 1 capsule by mouth once * LEVOTHYROXINE 125 MCG TABLET Take 1 tablet by mouth once d* COLCHICINE 0.6 MG TABLET Take 1 tablet by mouth once d* ALLOPURINOL 300 MG TABLET Take 1 tablet by mouth once d* IRBESARTAN 150 MG TABLET Take 1 tablet by mouth daily * COMPOUNDED PRESCRIPTION Osteo Biflex COMPOUNDED PRESCRIPTION Vitamin B6 MECLIZINE 12.5 MG TABLET Take 1 tablet by mouth three * TADALAFIL 5 MG TABLET Take 5 mg by mouth. 1 hour pr* Problem List As Of Date 12/08/2017 Noted Resolved Hypothyroidism [E03.9] INVALID FOR* BENIGN HYPERTENSION [I10] INVALID FOR* GOUT NOS [M10.9] INVALID FOR* OSTEITIS DEFORMANS NOS [M88.9] INVALID FOR* PERIPH VASCULAR DIS NOS [I73.9] INVALID FOR* Spinal Stenosis of Lumbar Region [M48.061] INVALID FOR* Perirectal abscess [K61.1] INVALID FOR*02/08/2012 Cellulitis of buttock, left [L03.317] INVALID FOR*08/16/2016 Elevated glucose [R73.09] INVALID FOR* Anemia, unspecified [D64.9] INVALID FOR* CKD (chronic kidney disease) Stage 3, GFR 30-59*INVALID FOR* Obesity, Class III, BMI 40-49.9 (morbid obesity*INVALID FOR* Ulcer of toe of left foot, limited to breakdown*INVALID FOR* Prescriptions ordered this encounter Disp Refills Start End OXAPROZIN 600 MG TABLET 180 * 1 12/08/2017 Route: ORAL Sig: Take 2 tablets by mouth once daily. Medications Discontinued During This Encounter oxaprozin (DAYPRO) 600 mg tablet 180 * 1 06/13/2017 12/08/2017 Route: ORAL Sig: Take 2 tablets by mouth once daily. Disc: Reason for discontinue is not on file. Disposition: Return in about 3 months (around 03/10/2018). Follow-up and Disposition History Recorded Encounter Status:Closed by ANTHONY LOVELL MD on 12/09/17 SED RATE WESTERGREN Collected: 11/29/2017 Status: F Source: [place] 10:18 AM [facility] REPOSITORY TYPE CODE TESTS RESULT OUT OF REFERENCE UNITS RANGE LAB WSR 0-15 mm/hr Sed Rate High [place] 29 Performed By: #### WSR, CRP, CBCDIF #### [facility] [address] [place], [place] [address] C-REACTIVE PROTEIN Collected: 11/29/2017 Status: F Source: [place] 10:18 AM [facility] REPOSITORY TYPE CODE TESTS RESULT OUT OF REFERENCE UNITS RANGE LAB CRP <0.9 mg/dL C-Reactive 0.3 Protein Performed By: #### WSR, CRP, CBCDIF #### [facility] [address] [place], [place] [address] CBC AND DIFFERENTIAL Collected: 11/29/2017 Status: F Source: [place] 10:18 AM [facility] REPOSITORY TYPE CODE TESTS RESULT OUT OF REFERENCE UNITS RANGE LAB WBC 3.70-11.00 k/uL WBC 9.12 LAB RBC 4.20-6.00 m/uL RBC Low 4.05 LAB HGB 13.0-17.0 g/dL Hemoglobin Low 12.8 LAB HCT 39.0-51.0 % Hematocrit 41.7 LAB MCV 80.0-100.0 fL MCV High 103.0 LAB MCH 26.0-34.0 pG MCH 31.6 LAB MCHC 30.5-36.0 g/dL MCHC 30.7 LAB RDWCV 11.5-15.0 % RDW-CV High 16.3 LAB PLTCT 150-400 k/uL Platelet Count 205 LAB MPV 9.0-12.7 fL MPV 10.5 LAB ANEUT % Neut% 67.0 LAB AANEUT 1.45-7.50 k/uL Abs Neut 6.11 LAB ALYMP % Lymph% 17.0 LAB AALYMP 1.00-4.00 k/uL Abs Lymph 1.55 LAB AMONO % Surry% 8.0 LAB AAMONO <0.87 k/uL Abs Surry 0.73 LAB AEOS % Eosin% 2.0 LAB AAEOS <0.46 k/uL Abs Eosin 0.18 LAB ABASO % Baso% 1.0 LAB AABASO <0.11 k/uL Abs Baso 0.09 LAB ABIMMG k/uL ANC(includeSEG+BA 6.11 ND) LAB AMETA % [place]% 3.0 LAB AMYELO % Myelo% 2.0 LAB ANIIMI Anisocytosis Present LAB LFTIMI Left Shift Present LAB OVAIMI Ovalocytes Few LAB PLTEST Platelet Estimate Platelet estimate adequate LAB DTYP DTYPE Manual Diff Performed By: #### WSR, CRP, CBCDIF #### [facility] [address] [place], [place] [address] PROGRESS Observed: 11/29/2017 Status: COMPLETED Source: [place] 10:09 AM [facility] REPOSITORY HNO ID: [id number] Author: Mari (Rt) Danielito Lucio Service: (none) Author Type: Applications Systems Analyst Type: Progress Notes Filed: 11/29/2017 10:09 AM Note Text: Radiology Service Progress Note PATIENT NAME: Nirmal Krueger DATE OF SERVICE: November 29, 2017 TIME: 10:09 AM PATIENT IDENTITY VERIFICATION COMPLETED USING TWO (2) METHODS: Patient confirmed name verbally and Date of . PATIENT GENDER DATA: Male PATIENT RELEVANT IMPLANT DATA REVIEWED: Not Applicable RADIOLOGY DEPARTMENT: General X-ray: Exam(s) Completed: Lower Extremity X-Ray(s): Foot, Left and Wt. 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 follow up to left foot bunion of the 1st digit with ulceration. TECHNIQUE: XR FOOT 3V AP/LAT/OBL LT Laterality: LEFT Number of different views (projections): 3 COMPARISON: RESULT: Narrowing the first MTP joint with osteophytes. Hallux valgus with bunion deformity. Bones are osteopenic. Smooth area of periosteal thickening in the medial mid diaphysis of the proximal phalanx of the great toe. No definite erosive changes are identified. No significant periostitis. No fracture. Midfoot degenerative changes related to talonavicular joint. IMPRESSION: NO CHANGE COMPARED TO PREVIOUS EXAMINATION. NO DEFINITE RADIOGRAPHIC EVIDENCE OF OSTEOMYELITIS. Tap And Die Maker Technician: PSCAlyce Transcribe Date/Time: Nov 29 2017 2:15P Dictated by : SHERIF LINDSAY MD This examination was interpreted and the report reviewed and electronically signed by: SHERIF LINDSAY MD on Nov 29 2017 2:20PM EST [id number] PROGRESS Observed: 11/29/2017 Status: COMPLETED Source: [place] 8:46 AM [facility] REPOSITORY HNO ID: [id number] Author: Trina Campoverde Service: (none) Author Type: Physician Type: Progress Notes Filed: 11/29/2017 10:31 PM Note Text: ? Trina Campoverde DPM Department of Podiatry [address] [facility] [address] Dept: [phone] Dept 11/29/2017 Follow Up Podiatric Office Visit: HPI: Nirmal Krueger is a 82 year old male. Patient presents for follow up for ulcer, L hallux. He is also 1 week post matrixectomy of L hallux, medial border. Patient has no complaints of pain. He is no longer wearing band aid on toe, he has left open to air. His ulcer is much better. Denies n/v/f/c. 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 EYES: No diplopia or blurry vision. CARDIOVASCULAR: No chest pain, dyspnea, palpitations, orthopnea, PND, ankle edema. PULM: No dyspnea, unexplained cough. GI: No dysphagia/odynophagia, problematic reflux, constipation, diarrhea, changes in stool habits, hematochezia, melena. : No new urinary complaints, including dysuria, gross hematuria or pyuria. NEURO: No new balance problems, peripheral weakness/paresthesias or numbness of concern. MUSC-SKEL: No new joint pain, swelling, or erythema. PSY: No concerns regarding depression, anxiety or panic. INTEGUMENTARY: Ulceration of left hallux and open wound of left great toe Physical Exam: Constitutional: Pt is a well developed 82 year old male who is alert, oriented and cooperative Eyes: Following during examination. No redness or drainage. Respiratory: RR normal and nonlabored. Even breathing. No evidence of distress or shortness of breath. Psychology: Patient is engaged during conversation. Normal affect and mood. Does not appear depressed or anxious during encounter. Vascular: Dorsalis pedis and posterior tibial pulses palpable as b/l Capillary Fill time < 5 seconds to digits 1-5 b/l Skin temperature warm to warm proximal to distal b/l Hair growth present to digits Neurological: intact light touch/epicritic sensation Dermatological: Skin appears well hydrated and supple. good color, texture, turgor. Ulceration of left hallux is now healed without signs of infection. Medial nail border of left hallux s/p matrixectomy healing without infection. Musculoskeletal/Orthopaedic: Patient has no pain to palpation of left foot Foot type is neutral structurally AJ ROM is full with knee extended and flexed 1st MPJ is full when loaded and no pain or crepitus are noted with ROM. Moderate bunion is present to left foot MTJ, STJ are full and free of pain and crepitus. +5/5 muscle strength dorsiflexion, plantarflexion, inversion, eversion b/l Radiographs: past xrays reviewed. There is decreased bone density. There is moderate bunion present. ASSESSMENT: (S91.109A) Open wound of toe, initial encounter (primary encounter diagnosis) (L97.521) Ulcer of toe of left foot, limited to breakdown of skin (HCC) Hallux valgus. PLAN: 1. History and physical examination performed. 2. Patient was examined and informed of current findings. Discussed ulceration of left hallux along medial eminence of bunion. Ulceration is now healed without infection. Reviewed xrays. Per report from radiologist, there Is concern for osteomyelitis and mri is recommended. I did discuss xrays and reviewed myself. 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 Softening of bone certainly risk due to patient age and medical co-morbidities. Discussed getting mri. Patient not interested in mri at this time. Recommend repeat xray and lab work and if any changes, recommend mri. 3. Toenail s/p matrixectomy appears to be healing nicely without signs of infection. Continue with local wound care until all drainage subsides. 4. Discussed bunion. Recommend shoe modification for another 3-4 days and then return to wider shoes. Discussed surgical correction. For now, he wants to pursue conservative care. Mr..e HULL Observed: 11/29/2017 Status: COMPLETED Source: [place] 8:40 AM [facility] REPOSITORY Office Visit (PODIWS) NIRMAL KRUEGER ([id number]) 1935 M Date Time Provider Department 11/29/17 8:40 AM TRINA CAMPOVERDE During your visit today, we recorded the following information about you: Trina Campoverde DPM 11/29/2017 10:31 PM Signed ? Trina Campoverde DPM Department of Podiatry [address] [facility] [address] Dept: [phone] Dept 11/29/2017 Follow Up Podiatric Office Visit: HPI: Nirmal Collinse is a 82 year old male. Patient presents for follow up for ulcer, L hallux. He is also 1 week post matrixectomy of L hallux, medial border. Patient has no complaints of pain. He is no longer wearing band aid on toe, he has left open to air. His ulcer is much better. Denies n/v/f/c. 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 EYES: No diplopia or blurry vision. CARDIOVASCULAR: No chest pain, dyspnea, palpitations, orthopnea, PND, ankle edema. PULM: No dyspnea, unexplained cough. GI: No dysphagia/odynophagia, problematic reflux, constipation, diarrhea, changes in stool habits, hematochezia, melena. : No new urinary complaints, including dysuria, gross hematuria or pyuria. NEURO: No new balance problems, peripheral weakness/paresthesias or numbness of concern. MUSC-SKEL: No new joint pain, swelling, or erythema. PSY: No concerns regarding depression, anxiety or panic. INTEGUMENTARY: Ulceration of left hallux and open wound of left great toe Physical Exam: Constitutional: Pt is a well developed 82 year old male who is alert, oriented and cooperative Eyes: Following during examination. No redness or drainage. Respiratory: RR normal and nonlabored. Even breathing. No evidence of distress or shortness of breath. Psychology: Patient is engaged during conversation. Normal affect and mood. Does not appear depressed or anxious during encounter. Vascular: Dorsalis pedis and posterior tibial pulses palpable as b/l Capillary Fill time < 5 seconds to digits 1-5 b/l Skin temperature warm to warm proximal to distal b/l Hair growth present to digits Neurological: intact light touch/epicritic sensation Dermatological: Skin appears well hydrated and supple. good color, texture, turgor. Ulceration of left hallux is now healed without signs of infection. Medial nail border of left hallux s/p matrixectomy healing without infection. Musculoskeletal/Orthopaedic: Patient has no pain to palpation of left foot Foot type is neutral structurally AJ ROM is full with knee extended and flexed 1st MPJ is full when loaded and no pain or crepitus are noted with ROM. Moderate bunion is present to left foot MTJ, STJ are full and free of pain and crepitus. +5/5 muscle strength dorsiflexion, plantarflexion, inversion, eversion b/l Radiographs: past xrays reviewed. There is decreased bone density. There is moderate bunion present. ASSESSMENT: (S91.109A) Open wound of toe, initial encounter (primary encounter diagnosis) (L97521) Ulcer of toe of left foot, limited to breakdown of skin (HCC) Hallux valgus. PLAN: 1. History and physical examination performed. 2. Patient was examined and informed of current findings. Discussed ulceration of left hallux along medial eminence of bunion. Ulceration is now healed without infection. Reviewed xrays. Per report from radiologist, there Is concern for osteomyelitis and mri is recommended. I did discuss xrays and reviewed myself. 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 Softening of bone certainly risk due to patient age and medical co-morbidities. Discussed getting mri. Patient not interested in mri at this time. Recommend repeat xray and lab work and if any changes, recommend mri. 3. Toenail s/p matrixectomy appears to be healing nicely without signs of infection. Continue with local wound care until all drainage subsides. 4. Discussed bunion. Recommend shoe modification for another 3-4 days and then return to wider shoes. Discussed surgical correction. For now, he wants to pursue conservative care. Mr..e Key Gutierrez Quintin 11/29/2017 9:08 AM Signed Have labs and XR done today - we will call with results Referring Provider: TRINA CAMPOVERDE [[id number]] Allergies As of Date: 11/29/2017 Noted Allergy Reaction LIPITOR (ATORVASTATIN CALCIUM) 01/13/2017 17 - Myalgia Comments: Caused Mental thoughts as well, per patient. Date Reviewed: 11/29/2017 Reviewed by: Ginger Diana RN - Fully Assessed Reason for Visit: Recheck [92] Primary Visit Diagnosis:Open wound of toe, initial encounter [S91.109A] Other Visit Diagnosis:Ulcer of toe of left foot, limited to breakdown of skin (HCC) [L97.521] Order(s):XR FOOT GENERAL 3V AP/LAT/OBL LT [[id number]] Order #: [id number] FUTURE CBC + DIFF [SQCBCDIF] Order #: [id number] FUTURE SED RATE WESTERGREN [SQWSR] Order #: [id number] FUTURE C-REACTIVE PROTEIN (CRP) [SQCRP] Order #: [id number] FUTURE Prescriptions as of 11/29/2017 Sig: FLUOXETINE 40 MG CAPSULE Take 1 capsule by mouth once * LEVOTHYROXINE 125 MCG TABLET Take 1 tablet by mouth once d* COLCHICINE 0.6 MG TABLET Take 1 tablet by mouth once d* ALLOPURINOL 300 MG TABLET Take 1 tablet by mouth once d* IRBESARTAN 150 MG TABLET Take 1 tablet by mouth daily * OXAPROZIN 600 MG TABLET Take 2 tablets by mouth once * MECLIZINE 12.5 MG TABLET Take 1 tablet by mouth three * TADALAFIL 5 MG TABLET Take 5 mg by mouth. 1 hour pr* COMPOUNDED PRESCRIPTION Osteo Biflex COMPOUNDED PRESCRIPTION Vitamin B6 Problem List As Of Date 11/29/2017 Noted Resolved Hypothyroidism [E03.9] INVALID FOR* BENIGN HYPERTENSION [I10] INVALID FOR* GOUT NOS [M10.9] INVALID FOR* OSTEITIS DEFORMANS NOS [M88.9] INVALID FOR* PERIPH VASCULAR DIS NOS [I73.9] INVALID FOR* Spinal Stenosis of Lumbar Region [M48.061] INVALID FOR* Perirectal abscess [K61.1] INVALID FOR*02/08/2012 Cellulitis of buttock, left [L03.317] INVALID FOR*08/16/2016 Elevated glucose [R73.09] INVALID FOR* Anemia, unspecified [D64.9] INVALID FOR* CKD (chronic kidney disease) Stage 3, GFR 30-59*INVALID FOR* Obesity, Class III, BMI 40-49.9 (morbid obesity*INVALID FOR* Ulcer of toe of left foot, limited to breakdown*INVALID FOR* Other instructions from your clinician: Have labs and XR done today - we will call with results Disposition: Return in about 2 weeks (around 12/13/2017). Follow-up and Disposition History Recorded Encounter Status:Closed by TRINA CAMPOVERDE DPM on 11/29/17 XR FOOT 3V AP/LAT/OBL Observed: 11/21/2017 Status: F Source: [facility] 11:17 AM [facility] REPOSITORY * * *Final Report* * * DATE OF EXAM: Nov 21 2017 11:17AM [id number] [id number] - XR FOOT 3V AP/LAT/OBL LT / PROCEDURE REASON: Non-pressure chronic ulcer of other part of left foot limited to breakdown of sk * * * * Physician Interpretation * * * * EXAMINATION: XR FOOT 3V AP/LAT/OBL LT CLINICAL HISTORY: boil on left foot and ingrown toe nail Non-pressure chronic ulcer of other part of left foot limited to breakdown of skin Technique: XR FOOT 3V AP/LAT/OBL LT -- LEFT foot with 3 views on 3 images Comparison: None RESULT: No fracture or dislocation. There is hallux valgus. Degenerative changes of the first MTP joint with joint space narrowing, subchondral sclerosis and small cysts. Mild erosive changes along the medial aspect of the first metatarsal head subjacent to a soft tissue defect concerning for osteomyelitis. Soft tissue defect and swelling at the distal toe; there is slightly increased sclerosis of the distal phalanx with subtle bony changes along the medial tuft subjacent to the soft tissue defect, concerning for osteomyelitis. IMPRESSION: Soft tissue defects in the great toe with underlying bony changes concerning for osteomyelitis. Recommend MRI for further evaluation. Tap And Die Maker Technician: JAMES Transcribe Date/Time: Nov 21 2017 5:38P Dictated by : HOMER ART MD This examination was interpreted and the report reviewed and electronically signed by: HOMER ART MD on Nov 21 2017 5:44PM EST [id number] PROGRESS Observed: 11/21/2017 Status: COMPLETED Source: [place] 11:16 AM [facility] REPOSITORY HNO ID: [id number] Author: NEREIDA Hernandez (Ct) Service: (none) Author Type: Clinical Applications Systems Analyst Type: Progress Notes Filed: 11/21/2017 11:16 AM Note Text: Radiology Service Progress Note PATIENT NAME: Nirmal Krueger DATE OF SERVICE: November 21, 2017 TIME: 11:16 AM PATIENT IDENTITY VERIFICATION COMPLETED USING TWO (2) METHODS: Patient confirmed name verbally and Date of . PATIENT GENDER DATA: Male PATIENT RELEVANT IMPLANT DATA REVIEWED: Not Applicable RADIOLOGY DEPARTMENT: General X-ray: Exam(s) Completed: Lower Extremity X-Ray(s): Foot, Left and Wt. Bearing: PERIPHERAL IV DATA: Not applicable SIGNED BY: NEREIDA Hernandez November 21, 2017 11:16 AM PROGRESS Observed: 11/21/2017 Status: COMPLETED Source: [place] 10:32 AM [facility] REPOSITORY HNO ID: [id number] Author: Key Gutierrez Ma Service: (none) Author Type: (none) Type: Progress Notes Filed: 11/22/2017 10:21 PM Note Text: UNIVERSAL PROTOCOL / SAFETY CHECKLIST Procedure to be performed: matrixectomy, L medial hallux Sign in Communication: Completed Time Out: Team Confirms the Correct Patient, Correct Procedure, Correct Site and Site Marking, Correct Position (if applicable), Prep and Dry Time (if applicable). Time: 1033 Affirmation of Time Out: YES Sign Out Discussion: Completed Key Gutierrez Ma PROGRESS Observed: 11/21/2017 Status: COMPLETED Source: [place] 9:44 AM [facility] [place] REPOSITORY O ID: [id number] Author: Trina Campoverde Service: (none) Author Type: Physician Type: Progress Notes Filed: 11/22/2017 10:21 PM Note Text: ? Trina Campoverde DPM Department of Podiatry [address] [facility] [address] Dept: [phone] Dept 11/21/2017 Initial Podiatric Office Visit: HPI: Nirmal Krueger is a 82 year old male. Patient presents with L 1st MTPJ lesion/redness and ingrown toenail. L 1st MTPJ - patient reports that x3 weeks ago, area became red, painful, and swollen. Patient states that area looks better today than it has the past 3 weeks. Patient has cut a hole of L medial tennis shoe to prevent rubbing and pain. States that he was told [facility] would not treat foot issues while waiting for this appointment. L ingrown - L medial toenail ingrown. Patient reports history of ingrown toenails and has had multiple avulsions for this. Patient reports history of bilateral foot surgery, reports hx of OS removal in [address] Gill at [facility]. Patient declines being diabetic and he is not a smoker. 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 levothyroxine (SYNTHROID) 125 mcg tablet Take 1 tablet by mouth once daily. colchicine (COLCRYS) 0.6 mg tablet Take 1 tablet by mouth once daily. allopurinol (ZYLOPRIM) 300 mg tablet Take 1 tablet by mouth once daily. irbesartan (AVAPRO) 150 mg tablet Take 1 tablet by mouth daily at bedtime. oxaprozin (DAYPRO) 600 mg tablet Take 2 tablets by mouth once daily. meclizine (ANTIVERT) 12.5 mg tab Take 1 tablet by mouth three times daily as needed (dizziness). Tadalafil (CIALIS) 5 mg tablet Take 5 mg by mouth. 1 hour prior to anticipated intercourse. COMPOUNDED PRESCRIPTION Osteo Biflex COMPOUNDED PRESCRIPTION Vitamin B6 No current facility-administered medications for this visit. ALLERGIES Allergen Reactions - Lipitor [Atorvastat* Myalgia Caused Mental thoughts as well, per patient. PAST SURGICAL HISTORY Procedure Laterality Date - COLONOSCOP W/ OR W/O [facility] SPEC 06/2003 Colonoscopy - COLONOSCOP W/ OR W/O [facility] SPE[facility] 07/04/08 - COLONOSCOP W/ OR W/O [facility] SPEC 07/05/2013 Colonoscopy - PAST SURGICAL HISTORY OF foot times 2 - PAST SURGICAL HISTORY OF BIlateral hip surgery FAMILY HISTORY Problem Relation Age of Onset - Colon Cancer Father Social History Marital status: Spouse name: Years of education: Number of children: Social History Main Topics Smoking status: Former Smoker Packs/day: 0.00 Years: 20.00 Quit date: 06/24/1981 Smokeless tobacco: Never Used Comment: cigars Alcohol use: No Social History Narrative 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 REVIEW OF SYSTEMS: CONSTITUTIONAL: No fevers, chills, nightsweats, unintended weight loss HEENT: Denies frequent or severe heaches, nasal congestion/sinus symptoms, problematic allergy problems. EYES: No diplopia or blurry vision. CARDIOVASCULAR: No chest pain, dyspnea, palpitations, orthopnea, PND, ankle edema. PULM: No dyspnea, unexplained cough. GI: No dysphagia/odynophagia, problematic reflux, constipation, diarrhea, changes in stool habits, hematochezia, melena. : No new urinary complaints, including dysuria, gross hematuria or pyuria. NEURO: No new balance problems, peripheral weakness/paresthesias or numbness of concern. MUSC-SKEL: No new joint pain, swelling, or erythema. PSY: No concerns regarding depression, anxiety or panic. INTEGUMENTARY: No new skin changes (rash, new or changing mole, new growth) Physical Exam: Constitutional: Pt is a well developed 82 year old male who is alert, oriented and cooperative Eyes: Following during examination. No redness or drainage. Respiratory: RR normal and nonlabored. Even breathing. No evidence of distress or shortness of breath. Psychology: Patient is engaged during conversation. Normal affect and mood. Does not appear depressed or anxious during encounter. Vascular: Dorsalis pedis and posterior tibial pulses faintly palpable but audible b/l Capillary Fill time < 5 seconds to digits 1-5 b/l Skin temperature warm to warm proximal to distal b/l Hair growth present to digits Neurological: intact light touch/epicritic sensation Vibratory sensation diminished to hallux b/l Dermatological: Left hallux medial border is ingrowing with pain, no drainage, no signs of infection. Left medial 1st metatarsal has ulceration that measures about 4 mm in diameter with luci-wound hyperkeratosis. Webspaces clean and dry 1-4 b/l. Skin appears well hydrated and supple. good color, texture, turgor. Musculoskeletal/Orthopaedic: Patient has pain to palpation of left hallux medial nail border Foot type is neutral full structurally AJ ROM is full with knee extended and flexed 1st MPJ is full when loaded and no pain or crepitus are noted with ROM. MTJ, STJ are full and free of pain and crepitus. +5/5 muscle strength dorsiflexion, plantarflexion, inversion, eversion b/l ASSESSMENT: (L97.521) Ulcer of toe of left foot, limited to breakdown of skin (HCC) (primary encounter diagnosis) (M20.12) Acquired hallux valgus of left foot (L60.0) Ingrowing toenail PLAN: Patient was examined and informed of findings Discussed ulceration of left foot. Etiology of ulceration was discussed. Informed patient that large bunion and rubbing in narrow shoes is likely cause. Today, debridement of left 1st metatarsal ulceration was performed with tissue nippers thru dermis and epidermis. All nonviable tissue was debrided. Recommend surgical shoe for offloading of bunion/ulceration. Recommend neosporin and band aid. Will order baseline xrays. Discussed ingrowing toenail of left hallux. Discussed plan for matrixectomy. Today, recommended performing pvr prior to any planned nail procedure. Informed patient that if circulation is poor, he may be at risk of nonhealing matrixectomy. Patient understands risk of doing procedure if circulation is not adequate could risk loss of toe. He wants to proceed with nail procedure today. Discussed risk of procedure not limited to infection, pain, swelling, bleeding, recurrent nail formation, slow wound healing and loss of toe. Patient consents to proceed. Discussed risks of toenail procedure not limited to infection, pain, swelling, bleeding, painful scarring, recurrence, need for revised procedure. Patient consented to proceed. Patient was properly identified by name and procedure. The left hallux hallux was then injected with 3 cc of 50/50 mixture of 2% lidocaine plain and 0.5% marcaine plain The toe was then prepped and draped in the usual aseptic technique. A digital tournicot was applied to the toe. The medial nail border was then freed and removed. Careful inspection was performed to assure no remaining spicule present. 3 applications of phenol were then administered x 30 seconds each followed by alcohol rinse. Sterile dressing was then applied consisting of amerigel, guaze, anita and coban. Tournicot was removed and hyperemic response was noted. Patient tolerated well. Patient will f/u in 1 weeks. Trina Campoverde DPM CNOV Observed: 11/21/2017 Status: COMPLETED Source: [place] 9:25 AM [facility] REPOSITORY Office Visit (PODIWS) NIRMAL KRUEGER ([id number]) 1935 M Date Time Provider Department 11/21/17 9:25 AM TRINA CAMPOVERDE PODIWS During your visit today, we recorded the following information about you: Trina Campoverde DPM 11/22/2017 10:21 PM Signed ? Trina Campoverde DPM Department of Podiatry [facility] [id number] Dept: [phone] Dept 11/21/2017 Initial Podiatric Office Visit: HPI: Nirmal Krueger is a 82 year old male. Patient presents with L 1st MTPJ lesion/redness and ingrown toenail. L 1st MTPJ - patient reports that x3 weeks ago, area became red, painful, and swollen. Patient states that area looks better today than it has the past 3 weeks. Patient has cut a hole of L medial tennis shoe to prevent rubbing and pain. States that he was told [facility] would not treat foot issues while waiting for this appointment. L ingrown - L medial toenail ingrown. Patient reports history of ingrown toenails and has had multiple avulsions for this. Patient reports history of bilateral foot surgery, reports hx of OS removal in [address] Gill at [facility]. Patient declines being diabetic and he is not a smoker. 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 levothyroxine (SYNTHROID) 125 mcg tablet Take 1 tablet by mouth once daily. colchicine (COLCRYS) 0.6 mg tablet Take 1 tablet by mouth once daily. allopurinol (ZYLOPRIM) 300 mg tablet Take 1 tablet by mouth once daily. irbesartan (AVAPRO) 150 mg tablet Take 1 tablet by mouth daily at bedtime. oxaprozin (DAYPRO) 600 mg tablet Take 2 tablets by mouth once daily. meclizine (ANTIVERT) 12.5 mg tab Take 1 tablet by mouth three times daily as needed (dizziness). Tadalafil (CIALIS) 5 mg tablet Take 5 mg by mouth. 1 hour prior to anticipated intercourse. COMPOUNDED PRESCRIPTION Osteo Biflex COMPOUNDED PRESCRIPTION Vitamin B6 No current facility-administered medications for this visit. ALLERGIES Allergen Reactions - Lipitor [Atorvastat* Myalgia Caused Mental thoughts as well, per patient. PAST SURGICAL HISTORY Procedure Laterality Date - COLONOSCOP W/ OR W/O [facility] SPEC 06/2003 Colonoscopy - COLONOSCOP W/ OR W/O [facility] SPEC 07/04/08 - COLONOSCOP W/ OR W/O [facility] SPEC 07/05/2013 Colonoscopy - PAST SURGICAL HISTORY OF foot times 2 - PAST SURGICAL HISTORY OF BIlateral hip surgery FAMILY HISTORY Problem Relation Age of Onset - Colon Cancer Father Social History Marital status: Spouse name: Years of education: Number of children: Social History Main Topics Smoking status: Former Smoker Packs/day: 0.00 Years: 20.00 Quit date: 06/24/1981 Smokeless tobacco: Never Used Comment: cigars Alcohol use: No Social History Narrative 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 REVIEW OF SYSTEMS: CONSTITUTIONAL: No fevers, chills, nightsweats, unintended weight loss HEENT: Denies frequent or severe heaches, nasal congestion/sinus symptoms, problematic allergy problems. EYES: No diplopia or blurry vision. CARDIOVASCULAR: No chest pain, dyspnea, palpitations, orthopnea, PND, ankle edema. PULM: No dyspnea, unexplained cough. GI: No dysphagia/odynophagia, problematic reflux, constipation, diarrhea, changes in stool habits, hematochezia, melena. : No new urinary complaints, including dysuria, gross hematuria or pyuria. NEURO: No new balance problems, peripheral weakness/paresthesias or numbness of concern. MUSC-SKEL: No new joint pain, swelling, or erythema. PSY: No concerns regarding depression, anxiety or panic. INTEGUMENTARY: No new skin changes (rash, new or changing mole, new growth) Physical Exam: Constitutional: Pt is a well developed 82 year old male who is alert, oriented and cooperative Eyes: Following during examination. No redness or drainage. Respiratory: RR normal and nonlabored. Even breathing. No evidence of distress or shortness of breath. Psychology: Patient is engaged during conversation. Normal affect and mood. Does not appear depressed or anxious during encounter. Vascular: Dorsalis pedis and posterior tibial pulses faintly palpable but audible b/l Capillary Fill time < 5 seconds to digits 1-5 b/l Skin temperature warm to warm proximal to distal b/l Hair growth present to digits Neurological: intact light touch/epicritic sensation Vibratory sensation diminished to hallux b/l Dermatological: Left hallux medial border is ingrowing with pain, no drainage, no signs of infection. Left medial 1st metatarsal has ulceration that measures about 4 mm in diameter with luci-wound hyperkeratosis. Webspaces clean and dry 1-4 b/l. Skin appears well hydrated and supple. good color, texture, turgor. Musculoskeletal/Orthopaedic: Patient has pain to palpation of left hallux medial nail border Foot type is neutral full structurally AJ ROM is full with knee extended and flexed 1st MPJ is full when loaded and no pain or crepitus are noted with ROM. MTJ, STJ are full and free of pain and crepitus. +5/5 muscle strength dorsiflexion, plantarflexion, inversion, eversion b/l ASSESSMENT: (L97.521) Ulcer of toe of left foot, limited to breakdown of skin (HCC) (primary encounter diagnosis) (M20.12) Acquired hallux valgus of left foot (L60.0) Ingrowing toenail PLAN: Patient was examined and informed of findings Discussed ulceration of left foot. Etiology of ulceration was discussed. Informed patient that large bunion and rubbing in narrow shoes is likely cause. Today, debridement of left 1st metatarsal ulceration was performed with tissue nippers thru dermis and epidermis. All nonviable tissue was debrided. Recommend surgical shoe for offloading of bunion/ulceration. Recommend neosporin and band aid. Will order baseline xrays. Discussed ingrowing toenail of left hallux. Discussed plan for matrixectomy. Today, recommended performing pvr prior to any planned nail procedure. Informed patient that if circulation is poor, he may be at risk of nonhealing matrixectomy. Patient understands risk of doing procedure if circulation is not adequate could risk loss of toe. He wants to proceed with nail procedure today. Discussed risk of procedure not limited to infection, pain, swelling, bleeding, recurrent nail formation, slow wound healing and loss of toe. Patient consents to proceed. Discussed risks of toenail procedure not limited to infection, pain, swelling, bleeding, painful scarring, recurrence, need for revised procedure. Patient consented to proceed. Patient was properly identified by name and procedure. The left hallux hallux was then injected with 3 cc of 50/50 mixture of 2% lidocaine plain and 0.5% marcaine plain The toe was then prepped and draped in the usual aseptic technique. A digital tournicot was applied to the toe. The medial nail border was then freed and removed. Careful inspection was performed to assure no remaining spicule present. 3 applications of phenol were then administered x 30 seconds each followed by alcohol rinse. Sterile dressing was then applied consisting of amerigel, guaze, anita and coban. Tournicot was removed and hyperemic response was noted. Patient tolerated well. Patient will f/u in 1 weeks. THEODORE Boo Ma 11/22/2017 10:21 PM Signed UNIVERSAL PROTOCOL / SAFETY CHECKLIST Procedure to be performed: matrixectomy, L medial hallux Sign in Communication: Completed Time Out: Team Confirms the Correct Patient, Correct Procedure, Correct Site and Site Marking, Correct Position (if applicable), Prep and Dry Time (if applicable). Time: 1033 Affirmation of Time Out: YES Sign Out Discussion: Completed Key Gutierrez Ma 11/21/2017 10:45 AM Signed Post-Op Nail Instructions Minimize activity until the anesthesia wears off (about 2- 8 hours). Increase activity to tolerance Remove bandage tomorrow Soak affected toe/foot in epsom salts for 15-20 minutes twice daily After soaking, apply antibiotic ointment (OTC Neosporin) to affected toe and re bandage OTC Ibuprofen if having pain, provided you have no allergies or intolerance to NSAIDS Mild drainage, redness, and blood is expected, but if you expeirence severe pain, increase in drainage, swelling, or red streaking please contact our office immediately Feel free to contact office as well if you have any questions/concerns [phone], ask for Podiatry Nurse Sore on L foot - neosporin and band aide daily Referring Provider: ANTHONY LOVELL [[id number]] Allergies As of Date: 11/21/2017 Noted Allergy Reaction LIPITOR (ATORVASTATIN CALCIUM) 01/13/2017 17 - Myalgia Comments: Caused Mental thoughts as well, per patient. Date Reviewed: 11/21/2017 Reviewed by: Key Gutierrez Ma - Fully Assessed Reason for Visit: Ingrown Nail [765] Primary Visit Diagnosis:Ulcer of toe of left foot, limited to breakdown of skin (HCC) [L97.521] Other Visit Diagnoses:Acquired hallux valgus of left foot [M20.12] Ingrowing toenail [L60.0] Order(s):XR FOOT GENERAL 3V AP/LAT/OBL LT [[id number]] Order #: [id number] FUTURE Prescriptions as of 11/21/2017 Sig: FLUOXETINE 40 MG CAPSULE Take 1 capsule by mouth once * LEVOTHYROXINE 125 MCG TABLET Take 1 tablet by mouth once d* COLCHICINE 0.6 MG TABLET Take 1 tablet by mouth once d* ALLOPURINOL 300 MG TABLET Take 1 tablet by mouth once d* IRBESARTAN 150 MG TABLET Take 1 tablet by mouth daily * OXAPROZIN 600 MG TABLET Take 2 tablets by mouth once * MECLIZINE 12.5 MG TABLET Take 1 tablet by mouth three * TADALAFIL 5 MG TABLET Take 5 mg by mouth. 1 hour pr* COMPOUNDED PRESCRIPTION Osteo Biflex COMPOUNDED PRESCRIPTION Vitamin B6 Problem List As Of Date 11/21/2017 Noted Resolved Hypothyroidism [E03.9] INVALID FOR* BENIGN HYPERTENSION [I10] INVALID FOR* GOUT NOS [M10.9] INVALID FOR* OSTEITIS DEFORMANS NOS [M88.9] INVALID FOR* PERIPH VASCULAR DIS NOS [I73.9] INVALID FOR* Spinal Stenosis of Lumbar Region [M48.061] INVALID FOR* Perirectal abscess [K61.1] INVALID FOR*02/08/2012 Cellulitis of buttock, left [L03.317] INVALID FOR*08/16/2016 Elevated glucose [R73.09] INVALID FOR* Anemia, unspecified [D64.9] INVALID FOR* CKD (chronic kidney disease) Stage 3, GFR 30-59*INVALID FOR* Obesity, Class III, BMI 40-49.9 (morbid obesity*INVALID FOR* Other instructions from your clinician: Post-Op Nail Instructions Minimize activity until the anesthesia wears off (about 2-8 hours). Increase activity to tolerance Remove bandage tomorrow Soak affected toe/foot in epsom salts for 15-20 minutes twice daily After soaking, apply antibiotic ointment (OTC Neosporin) to affected toe and re bandage OTC Ibuprofen if having pain, provided you have no allergies or intolerance to NSAIDS Mild drainage, redness, and blood is expected, but if you expeirence severe pain, increase in drainage, swelling, or red streaking please contact our office immediately Feel free to contact office as well if you have any questions/concerns [phone], ask for Podiatry Nurse Sore on L foot - neosporin and band aide daily Disposition: Return in about 1 week (around 11/28/2017) for matrixectomy, L medial hallux follow up and ulcer follow up. Follow-up and Disposition History Recorded Encounter Status:Closed by TRINA CAMPOVERDE DPM on 11/22/17 CNOV Observed: 09/08/2017 Status: COMPLETED Source: [place] 10:00 AM [facility] REPOSITORY Office Visit (FAMPWS) KRUEGERNIRMAL ([id number]) 1935 M Date Time Provider Department 09/08/17 10:00 AM [facility] During your visit today, we recorded the following information about you: Pulse Respiration Blood pressure Weight 66/minute 16/minute 138/80 144.2 kg Anthony Lovell MD 09/08/2017 1:48 PM Signed Chief Complaint Patient presents with: F/U 1 month HPI Nirmal Diamond Bola is a 81 year old male who presents here today for 1 month follow up. Pt is has lost 8 lbs like he said he would at his last visit. He stated he has been eating less. Depression: is taking Prozac 20 mg daily, he felt the best the first 2 weeks he was on it. He feels he would like to stay on the medication. Denies any side effects or problems with the Prozac. Ears: would like to have ears checked for wax. Past medical history, appointments, medications, allergies reviewed. 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 - Unspecified hypothyroidism Previous Surgical History PAST SURGICAL HISTORY Procedure Laterality Date - COLONOSCOP W/ OR W/O [facility] SPEC 06/2003 Colonoscopy - COLONOSCOP W/ OR W/O [facility] SPEC 07/04/08 - COLONOSCOP W/ OR W/O [facility] SPEC 07/05/2013 Colonoscopy - PAST SURGICAL HISTORY OF foot times 2 - PAST SURGICAL HISTORY OF BIlateral hip surgery Family History FAMILY HISTORY Problem Relation Age of Onset - Colon Cancer Father Patient Allergies ALLERGIES Allergen Reactions - Lipitor [Atorvastat* Myalgia Caused Mental thoughts as well, per patient. Current Medications Current Outpatient Prescriptions on File Prior to Visit: levothyroxine (SYNTHROID) 125 mcg tablet Take 1 tablet by mouth once daily. colchicine (COLCRYS) 0.6 mg tablet Take 1 tablet by mouth once daily. allopurinol (ZYLOPRIM) 300 mg tablet Take 1 tablet by mouth once daily. irbesartan (AVAPRO) 150 mg tablet Take 1 tablet by mouth daily at bedtime. FLUoxetine (PROZAC) 20 mg capsule Take 1 capsule by mouth once daily. oxaprozin (DAYPRO) 600 mg tablet Take 2 tablets by mouth once daily. meclizine (ANTIVERT) 12.5 mg tab Take 1 tablet by mouth three times daily as needed (dizziness). Tadalafil (CIALIS) 5 mg tablet Take 5 mg by mouth. 1 hour prior to anticipated intercourse. COMPOUNDED PRESCRIPTION Osteo Biflex COMPOUNDED PRESCRIPTION Vitamin B6 No current facility-administered medications on file prior to visit. 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 EXAM: BP 138/80 Pulse 66 Resp 16 Wt (!) 144.2 kg (318 lb) BMI 40.83 kg/m2 General Appearance: Well appearing, alert, in no acute distress, well-hydrated, well nourished., Obese. Ears: External ears normal, canals clear. Lungs: Lungs clear to auscultation. No wheezing, rhonchi, rales. Heart: RRR without murmur, gallop, or rubs. No ectopy. Health Maintenance List DIABETES SCREEN due on 07/25/2020 TETANUS due on 05/25/2021 ADULT PREVNAR-13 Completed INFLUENZA Completed PNEUMOVAX AGE 65 AND OVER WITH 5YR LOOKBACK Completed Data reviewed Appointment on 07/25/2017 Protein, Total Value: 6.7(g/dL) Date: 07/25/2017 Albumin Value: 3.9(g/dL) Date: 07/25/2017 Calcium Value: 9.2(mg/dL) Date: 07/25/2017 Bilirubin, Total Value: 0.3(mg/dL) Date: 07/25/2017 Alkaline Phosphatase Value: 45(U/L) Date: 07/25/2017 AST Value: 27(U/L) Date: 07/25/2017 Glucose Value: 118(mg/dL)* Date: 07/25/2017 BUN Value: 34(mg/dL)* Date: 07/25/2017 Creatinine Value: 1.73(mg/dL)* Date: 07/25/2017 Sodium Value: 142(mmol/L) Date: 07/25/2017 Potassium Value: 5.0(mmol/L) Date: 07/25/2017 Chloride Value: 108(mmol/L)* Date: 07/25/2017 CO2 Value: 20(mmol/L)* Date: 07/25/2017 Anion Gap Value: 14(mmol/L) Date: 07/25/2017 ALT Value: 15(U/L) Date: 07/25/2017 eGFR- Value: 46 Date: 07/25/2017 eGFR-All Other Races Value: 38(.) Date: 07/25/2017 Cholesterol, Total Value: 223(mg/dL)* Date: 07/25/2017 Triglyceride Value: 61(mg/dL) Date: 07/25/2017 HDL Cholesterol Value: 42(mg/dL) Date: 07/25/2017 LDL Cholesterol Value: 169(mg/dL)* Date: 07/25/2017 Non HDL Cholesterol Value: 181(mg/dL)* Date: 07/25/2017 Fasting Time Value: 14(hrs) Date: 07/25/2017 VLDL Cholesterol Value: 12(mg/dL) Date: 07/25/2017 TC:HDL Ratio Value: 5.31* Date: 07/25/2017 LDL:HDL Ratio Value: 4.02* Date: 07/25/2017 TSH Value: 5.140(uU/mL) Date: 07/25/2017 Hemoglobin A1C Value: 5.8(%)* Date: 07/25/2017 Estimated Average Glucose Value: 120(mg/dL) Date: 07/25/2017 WBC Value: 7.30(k/uL) Date: 07/25/2017 RBC Value: 3.90(m/uL)* Date: 07/25/2017 Hemoglobin Value: 12.6(g/dL)* Date: 07/25/2017 Hematocrit Value: 40.2(%) Date: 07/25/2017 MCV Value: 103.1(fL)* Date: 07/25/2017 MCH Value: 32.3(pG) Date: 07/25/2017 MCHC Value: 31.3(g/dL) Date: 07/25/2017 RDW-CV Value: 14.9(%) Date: 07/25/2017 Platelet Count Value: 167(k/uL) Date: 07/25/2017 MPV Value: 11.4(fL) Date: 07/25/2017 Absolute nRBC Value: ANDlt;0.01(k/uL) Date: 07/25/2017 ASSESSMENT/PLAN: 1. Depression, unspecified depression type - ICD9: 311, ICD10: F32.9 (primary diagnosis) Increase Prozac to 40 mg daily 2. GOPAL (generalized anxiety disorder) - ICD9: 300.02, ICD10: F41.1 Increase Prozac to 40 mg daily 3. Wax in ear - ICD9: 380.4, ICD10: H61.20 Lavage of both ears Follow up in 2 months. Anthony Lovell MD The documentation for this note was completed by Patricia Amos Ma acting as scribe for Anthony Lovell MD. September 08, 2017 9:48 AM. Patricia Amos Ma 09/08/2017 10:09 AM Signed Increased prozac to 40 mg daily. May take 2 of the 20 mg Prozac till those run out. Referring Provider: ANTHONY LOVELL [[id number]] Allergies As of Date: 09/08/2017 Noted Allergy Reaction LIPITOR (ATORVASTATIN CALCIUM) 01/13/2017 17 - Myalgia Comments: Caused Mental thoughts as well, per patient. Date Reviewed: 09/08/2017 Reviewed by: Patricia Amos Ma - Fully Assessed Reason for Visit: F/U 1 month [1175] Primary Visit Diagnosis:Depression, unspecified depression type [F32.9] Other Visit Diagnoses:GOPAL (generalized anxiety disorder) [F41.1] Wax in ear [H61.20] Order(s):FLUoxetine HCl (PROZAC) 40 mg capsuleTake 1 capsule by mouth once daily.Disp: 90 capsuleRfl: 1 Prescriptions as of 09/08/2017 Sig: LEVOTHYROXINE 125 MCG TABLET Take 1 tablet by mouth once d* COLCHICINE 0.6 MG TABLET Take 1 tablet by mouth once d* ALLOPURINOL 300 MG TABLET Take 1 tablet by mouth once d* IRBESARTAN 150 MG TABLET Take 1 tablet by mouth daily * OXAPROZIN 600 MG TABLET Take 2 tablets by mouth once * MECLIZINE 12.5 MG TABLET Take 1 tablet by mouth three * TADALAFIL 5 MG TABLET Take 5 mg by mouth. 1 hour pr* COMPOUNDED PRESCRIPTION Osteo Biflex COMPOUNDED PRESCRIPTION Vitamin B6 FLUOXETINE 40 MG CAPSULE Take 1 capsule by mouth once * Problem List As Of Date 09/08/2017 Noted Resolved Hypothyroidism [E03.9] INVALID FOR* BENIGN HYPERTENSION [I10] INVALID FOR* GOUT NOS [M10.9] INVALID FOR* OSTEITIS DEFORMANS NOS [M88.9] INVALID FOR* PERIPH VASCULAR DIS NOS [I73.9] INVALID FOR* Spinal Stenosis of Lumbar Region [M48.061] INVALID FOR* Perirectal abscess [K61.1] INVALID FOR*02/08/2012 Cellulitis of buttock, left [L03.317] INVALID FOR*08/16/2016 Elevated glucose [R73.09] INVALID FOR* Anemia, unspecified [D64.9] INVALID FOR* CKD (chronic kidney disease) Stage 3, GFR 30-59*INVALID FOR* Other instructions from your clinician: Increased prozac to 40 mg daily. May take 2 of the 20 mg Prozac till those run out. Prescriptions ordered this encounter Disp Refills Start End FLUOXETINE 40 MG CAPSULE 90 c* 1 09/08/2017 Route: ORAL Sig: Take 1 capsule by mouth once daily. Medications Discontinued During This Encounter FLUoxetine (PROZAC) 20 mg capsule 30 c* 2 08/04/2017 09/08/2017 Route: ORAL Sig: Take 1 capsule by mouth once daily. Disc: Reason for discontinue is not on file. Disposition: Return in about 2 months (around 11/08/2017). Follow-up and Disposition History Recorded Encounter Status:Closed by ANTHONY LOVELL MD on 09/08/17 PROGRESS Observed: 09/08/2017 Status: COMPLETED Source: [place] 9:48 AM [facility] REPOSITORY HNO ID: [id number] Author: Anthony Lovell Service: (none) Author Type: Physician Type: Progress Notes Filed: 09/08/2017 1:48 PM Note Text: Chief Complaint Patient presents with: F/U 1 month HPI Nirmal Krueger is a 81 year old male who presents here today for 1 month follow up. Pt is has lost 8 lbs like he said he would at his last visit. He stated he has been eating less. Depression: is taking Prozac 20 mg daily, he felt the best the first 2 weeks he was on it. He feels he would like to stay on the medication. Denies any side effects or problems with the Prozac. Ears: would like to have ears checked for wax. Past medical history, appointments, medications, allergies reviewed. 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 - Unspecified hypothyroidism Previous Surgical History PAST SURGICAL HISTORY Procedure Laterality Date - COLONOSCOP W/ OR W/O [facility] SPEC 06/2003 Colonoscopy - COLONOSCOP W/ OR W/O [facility] SPEC 07/04/08 - COLONOSCOP W/ OR W/O [facility] SPEC 07/05/2013 Colonoscopy - PAST SURGICAL HISTORY OF foot times 2 - PAST SURGICAL HISTORY OF BIlateral hip surgery Family History FAMILY HISTORY Problem Relation Age of Onset - Colon Cancer Father Patient Allergies ALLERGIES Allergen Reactions - Lipitor [Atorvastat* Myalgia Caused Mental thoughts as well, per patient. Current Medications Current Outpatient Prescriptions on File Prior to Visit: levothyroxine (SYNTHROID) 125 mcg tablet Take 1 tablet by mouth once daily. colchicine (COLCRYS) 0.6 mg tablet Take 1 tablet by mouth once daily. allopurinol (ZYLOPRIM) 300 mg tablet Take 1 tablet by mouth once daily. irbesartan (AVAPRO) 150 mg tablet Take 1 tablet by mouth daily at bedtime. FLUoxetine (PROZAC) 20 mg capsule Take 1 capsule by mouth once daily. oxaprozin (DAYPRO) 600 mg tablet Take 2 tablets by mouth once daily. meclizine (ANTIVERT) 12.5 mg tab Take 1 tablet by mouth three times daily as needed (dizziness). Tadalafil (CIALIS) 5 mg tablet Take 5 mg by mouth. 1 hour prior to anticipated intercourse. COMPOUNDED PRESCRIPTION Osteo Biflex COMPOUNDED PRESCRIPTION Vitamin B6 No current facility-administered medications on file prior to visit. 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 EXAM: BP 138/80 Pulse 66 Resp 16 Wt (!) 144.2 kg (318 lb) BMI 40.83 kg/m2 General Appearance: Well appearing, alert, in no acute distress, well-hydrated, well nourished., Obese. Ears: External ears normal, canals clear. Lungs: Lungs clear to auscultation. No wheezing, rhonchi, rales. Heart: RRR without murmur, gallop, or rubs. No ectopy. Health Maintenance List DIABETES SCREEN due on 07/25/2020 TETANUS due on 05/25/2021 ADULT PREVNAR-13 Completed INFLUENZA Completed PNEUMOVAX AGE 65 AND OVER WITH 5YR LOOKBACK Completed Data reviewed Appointment on 07/25/2017 Protein, Total Value: 6.7(g/dL) Date: 07/25/2017 Albumin Value: 3.9(g/dL) Date: 07/25/2017 Calcium Value: 9.2(mg/dL) Date: 07/25/2017 Bilirubin, Total Value: 0.3(mg/dL) Date: 07/25/2017 Alkaline Phosphatase Value: 45(U/L) Date: 07/25/2017 AST Value: 27(U/L) Date: 07/25/2017 Glucose Value: 118(mg/dL)* Date: 07/25/2017 BUN Value: 34(mg/dL)* Date: 07/25/2017 Creatinine Value: 1.73(mg/dL)* Date: 07/25/2017 Sodium Value: 142(mmol/L) Date: 07/25/2017 Potassium Value: 5.0(mmol/L) Date: 07/25/2017 Chloride Value: 108(mmol/L)* Date: 07/25/2017 CO2 Value: 20(mmol/L)* Date: 07/25/2017 Anion Gap Value: 14(mmol/L) Date: 07/25/2017 ALT Value: 15(U/L) Date: 07/25/2017 eGFR- Value: 46 Date: 07/25/2017 eGFR-All Other Races Value: 38(.) Date: 07/25/2017 Cholesterol, Total Value: 223(mg/dL)* Date: 07/25/2017 Triglyceride Value: 61(mg/dL) Date: 07/25/2017 HDL Cholesterol Value: 42(mg/dL) Date: 07/25/2017 LDL Cholesterol Value: 169(mg/dL)* Date: 07/25/2017 Non HDL Cholesterol Value: 181(mg/dL)* Date: 07/25/2017 Fasting Time Value: 14(hrs) Date: 07/25/2017 VLDL Cholesterol Value: 12(mg/dL) Date: 07/25/2017 TC:HDL Ratio Value: 5.31* Date: 07/25/2017 LDL:HDL Ratio Value: 4.02* Date: 07/25/2017 TSH Value: 5.140(uU/mL) Date: 07/25/2017 Hemoglobin A1C Value: 5.8(%)* Date: 07/25/2017 Estimated Average Glucose Value: 120(mg/dL) Date: 07/25/2017 WBC Value: 7.30(k/uL) Date: 07/25/2017 RBC Value: 3.90(m/uL)* Date: 07/25/2017 Hemoglobin Value: 12.6(g/dL)* Date: 07/25/2017 Hematocrit Value: 40.2(%) Date: 07/25/2017 MCV Value: 103.1(fL)* Date: 07/25/2017 MCH Value: 32.3(pG) Date: 07/25/2017 MCHC Value: 31.3(g/dL) Date: 07/25/2017 RDW-CV Value: 14.9(%) Date: 07/25/2017 Platelet Count Value: 167(k/uL) Date: 07/25/2017 MPV Value: 11.4(fL) Date: 07/25/2017 Absolute nRBC Value: <0.01(k/uL) Date: 07/25/2017 ASSESSMENT/PLAN: 1. Depression, unspecified depression type - ICD9: 311, ICD10: F32.9 (primary diagnosis) Increase Prozac to 40 mg daily 2. GOPAL (generalized anxiety disorder) - ICD9: 300.02, ICD10: F41.1 Increase Prozac to 40 mg daily 3. Wax in ear - ICD9: 380.4, ICD10: H61.20 Lavage of both ears Follow up in 2 months. Anthony Lovell MD The documentation for this note was completed by Patricia Amos Ma acting as scribe for Anthony Lovell MD. September 08, 2017 9:48 AM. CNOV Observed: 08/04/2017 Status: COMPLETED Source: [place] 10:40 AM [facility] REPOSITORY Office Visit (FAMPWS) KRUEGERASHLEIGH MadrigalNIRMAL D ([id number]) 1935 M Date Time Provider Department 08/04/17 10:40 AM ANTHONY LOVELLWS During your visit today, we recorded the following information about you: Pulse Respiration Blood pressure Weight 68/minute 16/minute 130/82 148.1 kg Anthony Lovell MD 08/04/2017 1:30 PM Signed Chief Complaint Patient presents with: F/U 6 Month: HTN, Gout, Hypothyroidism HPI Nirmal Diamond Bola is a 81 year old male who presents here today for a 6 mo f/u. takes care of all his medications and sets up medications in pill boxes for him. Hypertnesion - Checks BP few times a week with BP ranging from 106-130/57-70. Denies any chest pain. Admits to sob with exertion and dizziness due to vertigo, which is controlled with medication regimen of Meclizine 25 mg prn. Currently taking Avapro 150 mg once daily. Gout - Doing well on current dosage. States that he will get flare up's if he eats too much of the wrong type of foods. Currently taking Allopurinol 300 mg once daily and Colcrys 0.6 mg prn. Thyroid - Stable on current dosage. Unsure how is suppose to feel, but takes it regularly. Currently taking Levothyroxine 125 mcg one daily. Arthritis - Uses Daypro 600 mg 2 tabs once daily along with other NSAIDS. Helps him get around and do daily tasks. Unable to stand for prolonged periods. Hearing - Would like to have ears cleaned even though, wax can't be seen. He is able to hear better for 6 months after the cleaning. His ENT doesn't clean his ears nearly as well, and he ANDquot;mine as well pour water over his head.ANDquot; Depressed - Feels that he is a little more edgy. Reacting quicker then usual if someone says something wrong. 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 Has never been on medication for this type of issue, but he would like to try something to help Past medical history, appointments, medications, allergies reviewed. 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 - Unspecified hypothyroidism Previous Surgical History PAST SURGICAL HISTORY Procedure Laterality Date - COLONOSCOP W/ OR W/O [facility] SPEC 06/2003 Colonoscopy - COLONOSCOP W/ OR W/O [facility] SPEC 07/04/08 - COLONOSCOP W/ OR W/O [facility] SPEC 07/05/2013 Colonoscopy - PAST SURGICAL HISTORY OF foot times 2 - PAST SURGICAL HISTORY OF BIlateral hip surgery Family History FAMILY HISTORY Problem Relation Age of Onset - Colon Cancer Father Patient Allergies ALLERGIES Allergen Reactions - Lipitor [Atorvastat* Myalgia Caused Mental thoughts as well, per patient. Current Medications Current Outpatient Prescriptions on File Prior to Visit: oxaprozin (DAYPRO) 600 mg tablet Take 2 tablets by mouth once daily. levothyroxine (SYNTHROID) 125 mcg tablet Take 1 tablet by mouth once daily. meclizine (ANTIVERT) 12.5 mg tab Take 1 tablet by mouth three times daily as needed (dizziness). irbesartan (AVAPRO) 150 mg tablet Take 1 tablet by mouth daily at bedtime. allopurinol (ZYLOPRIM) 300 mg tablet Take 1 tablet by mouth once daily. Tadalafil (CIALIS) 5 mg tablet Take 5 mg by mouth. 1 hour prior to anticipated intercourse. colchicine (COLCRYS) 0.6 mg tablet Take 1 tablet by mouth once daily. COMPOUNDED PRESCRIPTION Osteo Biflex COMPOUNDED PRESCRIPTION Vitamin B6 No current facility-administered medications on file prior to visit. 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 EXAM: BP 130/82 (BP Site: Left Arm, BP Position: Sitting, BP Cuff Size: Regular Adult) Pulse 68 Resp 16 Wt (!) 148.1 kg (326 lb 6.4 oz) BMI 41.91 kg/m2 General Appearance: Well appearing, alert, in no acute distress, well-hydrated, well nourished., Obese. Ears: External ears normal, canals clear. Lungs: Lungs clear to auscultation. No wheezing, rhonchi, rales. Heart: RRR without murmur, gallop, or rubs. No ectopy. Health Maintenance List DIABETES SCREEN due on 07/25/2020 TETANUS due on 05/25/2021 ADULT PREVNAR-13 Completed INFLUENZA Completed PNEUMOVAX AGE 65 AND OVER WITH 5YR LOOKBACK Completed Data reviewed Appointment on 07/25/2017 Protein, Total Value: 6.7(g/dL) Date: 07/25/2017 Albumin Value: 3.9(g/dL) Date: 07/25/2017 Calcium Value: 9.2(mg/dL) Date: 07/25/2017 Bilirubin, Total Value: 0.3(mg/dL) Date: 07/25/2017 Alkaline Phosphatase Value: 45(U/L) Date: 07/25/2017 AST Value: 27(U/L) Date: 07/25/2017 Glucose Value: 118(mg/dL)* Date: 07/25/2017 BUN Value: 34(mg/dL)* Date: 07/25/2017 Creatinine Value: 1.73(mg/dL)* Date: 07/25/2017 Sodium Value: 142(mmol/L) Date: 07/25/2017 Potassium Value: 5.0(mmol/L) Date: 07/25/2017 Chloride Value: 108(mmol/L)* Date: 07/25/2017 CO2 Value: 20(mmol/L)* Date: 07/25/2017 Anion Gap Value: 14(mmol/L) Date: 07/25/2017 ALT Value: 15(U/L) Date: 07/25/2017 eGFR- Value: 46 Date: 07/25/2017 eGFR-All Other Races Value: 38(.) Date: 07/25/2017 Cholesterol, Total Value: 223(mg/dL)* Date: 07/25/2017 Triglyceride Value: 61(mg/dL) Date: 07/25/2017 HDL Cholesterol Value: 42(mg/dL) Date: 07/25/2017 LDL Cholesterol Value: 169(mg/dL)* Date: 07/25/2017 Non HDL Cholesterol Value: 181(mg/dL)* Date: 07/25/2017 Fasting Time Value: 14(hrs) Date: 07/25/2017 VLDL Cholesterol Value: 12(mg/dL) Date: 07/25/2017 TC:HDL Ratio Value: 5.31* Date: 07/25/2017 LDL:HDL Ratio Value: 4.02* Date: 07/25/2017 TSH Value: 5.140(uU/mL) Date: 07/25/2017 Hemoglobin A1C Value: 5.8(%)* Date: 07/25/2017 Estimated Average Glucose Value: 120(mg/dL) Date: 07/25/2017 WBC Value: 7.30(k/uL) Date: 07/25/2017 RBC Value: 3.90(m/uL)* Date: 07/25/2017 Hemoglobin Value: 12.6(g/dL)* Date: 07/25/2017 Hematocrit Value: 40.2(%) Date: 07/25/2017 MCV Value: 103.1(fL)* Date: 07/25/2017 MCH Value: 32.3(pG) Date: 07/25/2017 MCHC Value: 31.3(g/dL) Date: 07/25/2017 RDW-CV Value: 14.9(%) Date: 07/25/2017 Platelet Count Value: 167(k/uL) Date: 07/25/2017 MPV Value: 11.4(fL) Date: 07/25/2017 Absolute nRBC Value: ANDlt;0.01(k/uL) Date: 07/25/2017 ASSESSMENT/PLAN: 1. BENIGN HYPERTENSION - ICD9: 401.1, ICD10: I10 (primary diagnosis) - good control - Continue current medication(s) - Recommended regular aerobic exercise. - Goal of BP ANDlt;130/80 - IRBESARTAN 150 MG TABLET 2. Hypothyroidism, unspecified type - ICD9: 244.9, ICD10: E03.9 - Continue current medication regimen. - LEVOTHYROXINE 125 MCG TABLET 3. Idiopathic gout, unspecified chronicity, unspecified site - ICD9: 274.9, ICD10: M10.00 -Continue current medication regimen. - COLCHICINE 0.6 MG TABLET - ALLOPURINOL 300 MG TABLET 4. Spinal stenosis, lumbar region, without neurogenic claudication - ICD9: 724.02, ICD10: M48.061 Chronic low back pain Continue current medication regimen. 5. Primary osteoarthritis involving multiple joints - ICD9: 715.09, ICD10: M15.0 - Continue current medication regimen. 6. Depression, unspecified depression type - ICD9: 311, ICD10: F32.9 - Start Prozac 20 mg once daily 7. Bilateral hearing loss, unspecified hearing loss type - ICD9: 389.9, ICD10: H91.93 - No syringes in office at that time, currently being ordered. - 1 mo f/u and complete ear lavage at that time. 1 mo f/u to check up on Prozac medication and ear lavage Anthony Lovell MD The documentation for this note was completed by Suzanne Leblanc Ma acting as scribe for Anthony Lovell MD. August 04, 2017 10:39 AM. Referring Provider: ANTHONY LOVELL [[id number]] Allergies As of Date: 08/04/2017 Noted Allergy Reaction LIPITOR (ATORVASTATIN CALCIUM) 01/13/2017 17 - Myalgia Comments: Caused Mental thoughts as well, per patient. Date Reviewed: 08/04/2017 Reviewed by: Suzanne Leblanc Ma - Fully Assessed Reason for Visit: F/U 6 Month [444] Cmt: HTN, Gout, Hypothyroidism, Arthritis and Vertigo Reason For Visit History Recorded Primary Visit Diagnosis:BENIGN HYPERTENSION [I10] Other Visit Diagnoses:Hypothyroidism, unspecified type [E03.9] Idiopathic gout, unspecified chronicity, unspecified site [M10.00] Spinal stenosis, lumbar region, without neurogenic claudication [M48.061] Primary osteoarthritis involving multiple joints [M15.0] Depression, unspecified depression type [F32.9] Bilateral hearing loss, unspecified hearing loss type [H91.93] Chronic kidney disease (CKD), stage III (moderate) [N18.3] Order(s):levothyroxine (SYNTHROID) 125 mcg tabletTake 1 tablet by mouth once daily.Disp: 90 tabletRfl: 3 colchicine (COLCRYS) 0.6 mg tabletTake 1 tablet by mouth once daily.Disp: 30 tabletRfl: 2 allopurinol (ZYLOPRIM) 300 mg tabletTake 1 tablet by mouth once daily.Disp: 90 tabletRfl: 3 irbesartan (AVAPRO) 150 mg tabletTake 1 tablet by mouth daily at bedtime.Disp: 90 tabletRfl: 3 FLUoxetine (PROZAC) 20 mg capsuleTake 1 capsule by mouth once daily.Disp: 30 capsuleRfl: 2 Prescriptions as of 08/04/2017 Sig: LEVOTHYROXINE 125 MCG TABLET Take 1 tablet by mouth once d* COLCHICINE 0.6 MG TABLET Take 1 tablet by mouth once d* ALLOPURINOL 300 MG TABLET Take 1 tablet by mouth once d* IRBESARTAN 150 MG TABLET Take 1 tablet by mouth daily * OXAPROZIN 600 MG TABLET Take 2 tablets by mouth once * MECLIZINE 12.5 MG TABLET Take 1 tablet by mouth three * TADALAFIL 5 MG TABLET Take 5 mg by mouth. 1 hour pr* COMPOUNDED PRESCRIPTION Osteo Biflex COMPOUNDED PRESCRIPTION Vitamin B6 FLUOXETINE 20 MG CAPSULE Take 1 capsule by mouth once * Problem List As Of Date 08/04/2017 Noted Resolved Hypothyroidism [E03.9] INVALID FOR* BENIGN HYPERTENSION [I10] INVALID FOR* GOUT NOS [M10.9] INVALID FOR* OSTEITIS DEFORMANS NOS [M88.9] INVALID FOR* PERIPH VASCULAR DIS NOS [I73.9] INVALID FOR* Spinal Stenosis of Lumbar Region [M48.061] INVALID FOR* Perirectal abscess [K61.1] INVALID FOR*02/08/2012 Cellulitis of buttock, left [L03.317] INVALID FOR*08/16/2016 Elevated glucose [R73.09] INVALID FOR* Anemia, unspecified [D64.9] INVALID FOR* CKD (chronic kidney disease) Stage 3, GFR 30-59*INVALID FOR* Prescriptions ordered this encounter Disp Refills Start End LEVOTHYROXINE 125 MCG TABLET 90 t* 3 08/04/2017 Route: ORAL Sig: Take 1 tablet by mouth once daily. COLCHICINE 0.6 MG TABLET 30 t* 2 08/04/2017 Route: ORAL Sig: Take 1 tablet by mouth once daily. ALLOPURINOL 300 MG TABLET 90 t* 3 08/04/2017 Route: ORAL Sig: Take 1 tablet by mouth once daily. IRBESARTAN 150 MG TABLET 90 t* 3 08/04/2017 Route: ORAL Sig: Take 1 tablet by mouth daily at bedtime. FLUOXETINE 20 MG CAPSULE 30 c* 2 08/04/2017 Route: ORAL Sig: Take 1 capsule by mouth once daily. Medications Discontinued During This Encounter levothyroxine (SYNTHROID) 125 mcg ta* 90 t* 3 05/19/2017 08/04/2017 Route: ORAL Sig: Take 1 tablet by mouth once daily. Disc: Reason for discontinue is not on file. colchicine (COLCRYS) 0.6 mg tablet 30 t* 2 01/16/2015 08/04/2017 Route: ORAL Sig: Take 1 tablet by mouth once daily. Disc: Reason for discontinue is not on file. allopurinol (ZYLOPRIM) 300 mg tablet 90 t* 3 07/22/2016 08/04/2017 Route: ORAL Sig: Take 1 tablet by mouth once daily. Disc: Reason for discontinue is not on file. irbesartan (AVAPRO) 150 mg tablet 90 t* 3 07/22/2016 08/04/2017 Route: ORAL Sig: Take 1 tablet by mouth daily at bedtime. Disc: Reason for discontinue is not on file. Disposition: Return in about 4 weeks (around 09/01/2017). Follow-up and Disposition History Recorded Encounter Status:Closed by ANTHONY LOVELL MD on 08/04/17 PROGRESS Observed: 08/04/2017 Status: COMPLETED Source: [place] 10:39 AM [facility] REPOSITORY O ID: [id number] Author: Anthony Lovell Service: (none) Author Type: Physician Type: Progress Notes Filed: 08/04/2017 1:30 PM Note Text: Chief Complaint Patient presents with: F/U 6 Month: HTN, Gout, Hypothyroidism HPI Nirmal Krueger is a 81 year old male who presents here today for a 6 mo f/u. takes care of all his medications and sets up medications in pill boxes for him. Hypertnesion - Checks BP few times a week with BP ranging from 106-130/57-70. Denies any chest pain. Admits to sob with exertion and dizziness due to vertigo, which is controlled with medication regimen of Meclizine 25 mg prn. Currently taking Avapro 150 mg once daily. Gout - Doing well on current dosage. States that he will get flare up's if he eats too much of the wrong type of foods. Currently taking Allopurinol 300 mg once daily and Colcrys 0.6 mg prn. Thyroid - Stable on current dosage. Unsure how is suppose to feel, but takes it regularly. Currently taking Levothyroxine 125 mcg one daily. Arthritis - Uses Daypro 600 mg 2 tabs once daily along with other NSAIDS. Helps him get around and do daily tasks. Unable to stand for prolonged periods. Hearing - Would like to have ears cleaned even though, wax can't be seen. He is able to hear better for 6 months after the cleaning. His ENT doesn't clean his ears nearly as well, and he mine as well pour water over his head. Depressed - Feels that he is a little more edgy. Reacting quicker then usual if someone says something wrong. 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 Has never been on medication for this type of issue, but he would like to try something to help Past medical history, appointments, medications, allergies reviewed. 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 - Unspecified hypothyroidism Previous Surgical History PAST SURGICAL HISTORY Procedure Laterality Date - COLONOSCOP W/ OR W/O [facility] SPEC 06/2003 Colonoscopy - COLONOSCOP W/ OR W/O [facility] SPEC 07/04/08 - COLONOSCOP W/ OR W/O [facility] SPEC 07/05/2013 Colonoscopy - PAST SURGICAL HISTORY OF foot times 2 - PAST SURGICAL HISTORY OF BIlateral hip surgery Family History FAMILY HISTORY Problem Relation Age of Onset - Colon Cancer Father Patient Allergies ALLERGIES Allergen Reactions - Lipitor [Atorvastat* Myalgia Caused Mental thoughts as well, per patient. Current Medications Current Outpatient Prescriptions on File Prior to Visit: oxaprozin (DAYPRO) 600 mg tablet Take 2 tablets by mouth once daily. levothyroxine (SYNTHROID) 125 mcg tablet Take 1 tablet by mouth once daily. meclizine (ANTIVERT) 12.5 mg tab Take 1 tablet by mouth three times daily as needed (dizziness). irbesartan (AVAPRO) 150 mg tablet Take 1 tablet by mouth daily at bedtime. allopurinol (ZYLOPRIM) 300 mg tablet Take 1 tablet by mouth once daily. Tadalafil (CIALIS) 5 mg tablet Take 5 mg by mouth. 1 hour prior to anticipated intercourse. colchicine (COLCRYS) 0.6 mg tablet Take 1 tablet by mouth once daily. COMPOUNDED PRESCRIPTION Osteo Biflex COMPOUNDED PRESCRIPTION Vitamin B6 No current facility-administered medications on file prior to visit. 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 EXAM: BP 130/82 (BP Site: Left Arm, BP Position: Sitting, BP Cuff Size: Regular Adult) Pulse 68 Resp 16 Wt (!) 148.1 kg (326 lb 6.4 oz) BMI 41.91 kg/m2 General Appearance: Well appearing, alert, in no acute distress, well-hydrated, well nourished., Obese. Ears: External ears normal, canals clear. Lungs: Lungs clear to auscultation. No wheezing, rhonchi, rales. Heart: RRR without murmur, gallop, or rubs. No ectopy. Health Maintenance List DIABETES SCREEN due on 07/25/2020 TETANUS due on 05/25/2021 ADULT PREVNAR-13 Completed INFLUENZA Completed PNEUMOVAX AGE 65 AND OVER WITH 5YR LOOKBACK Completed Data reviewed Appointment on 07/25/2017 Protein, Total Value: 6.7(g/dL) Date: 07/25/2017 Albumin Value: 3.9(g/dL) Date: 07/25/2017 Calcium Value: 9.2(mg/dL) Date: 07/25/2017 Bilirubin, Total Value: 0.3(mg/dL) Date: 07/25/2017 Alkaline Phosphatase Value: 45(U/L) Date: 07/25/2017 AST Value: 27(U/L) Date: 07/25/2017 Glucose Value: 118(mg/dL)* Date: 07/25/2017 BUN Value: 34(mg/dL)* Date: 07/25/2017 Creatinine Value: 1.73(mg/dL)* Date: 07/25/2017 Sodium Value: 142(mmol/L) Date: 07/25/2017 Potassium Value: 5.0(mmol/L) Date: 07/25/2017 Chloride Value: 108(mmol/L)* Date: 07/25/2017 CO2 Value: 20(mmol/L)* Date: 07/25/2017 Anion Gap Value: 14(mmol/L) Date: 07/25/2017 ALT Value: 15(U/L) Date: 07/25/2017 eGFR- Value: 46 Date: 07/25/2017 eGFR-All Other Races Value: 38(.) Date: 07/25/2017 Cholesterol, Total Value: 223(mg/dL)* Date: 07/25/2017 Triglyceride Value: 61(mg/dL) Date: 07/25/2017 HDL Cholesterol Value: 42(mg/dL) Date: 07/25/2017 LDL Cholesterol Value: 169(mg/dL)* Date: 07/25/2017 Non HDL Cholesterol Value: 181(mg/dL)* Date: 07/25/2017 Fasting Time Value: 14(hrs) Date: 07/25/2017 VLDL Cholesterol Value: 12(mg/dL) Date: 07/25/2017 TC:HDL Ratio Value: 5.31* Date: 07/25/2017 LDL:HDL Ratio Value: 4.02* Date: 07/25/2017 TSH Value: 5.140(uU/mL) Date: 07/25/2017 Hemoglobin A1C Value: 5.8(%)* Date: 07/25/2017 Estimated Average Glucose Value: 120(mg/dL) Date: 07/25/2017 WBC Value: 7.30(k/uL) Date: 07/25/2017 RBC Value: 3.90(m/uL)* Date: 07/25/2017 Hemoglobin Value: 12.6(g/dL)* Date: 07/25/2017 Hematocrit Value: 40.2(%) Date: 07/25/2017 MCV Value: 103.1(fL)* Date: 07/25/2017 MCH Value: 32.3(pG) Date: 07/25/2017 MCHC Value: 31.3(g/dL) Date: 07/25/2017 RDW-CV Value: 14.9(%) Date: 07/25/2017 Platelet Count Value: 167(k/uL) Date: 07/25/2017 MPV Value: 11.4(fL) Date: 07/25/2017 Absolute nRBC Value: <0.01(k/uL) Date: 07/25/2017 ASSESSMENT/PLAN: 1. BENIGN HYPERTENSION - ICD9: 401.1, ICD10: I10 (primary diagnosis) - good control - Continue current medication(s) - Recommended regular aerobic exercise. - Goal of BP <130/80 - IRBESARTAN 150 MG TABLET 2. Hypothyroidism, unspecified type - ICD9: 244.9, ICD10: E03.9 - Continue current medication regimen. - LEVOTHYROXINE 125 MCG TABLET 3. Idiopathic gout, unspecified chronicity, unspecified site - ICD9: 274.9, ICD10: M10.00 -Continue current medication regimen. - COLCHICINE 0.6 MG TABLET - ALLOPURINOL 300 MG TABLET 4. Spinal stenosis, lumbar region, without neurogenic claudication - ICD9: 724.02, ICD10: M48.061 Chronic low back pain Continue current medication regimen. 5. Primary osteoarthritis involving multiple joints - ICD9: 715.09, ICD10: M15.0 - Continue current medication regimen. 6. Depression, unspecified depression type - ICD9: 311, ICD10: F32.9 - Start Prozac 20 mg once daily 7. Bilateral hearing loss, unspecified hearing loss type - ICD9: 389.9, ICD10: H91.93 - No syringes in office at that time, currently being ordered. - 1 mo f/u and complete ear lavage at that time. 1 mo f/u to check up on Prozac medication and ear lavage Anthony Lovell MD The documentation for this note was completed by Suzanne Leblanc Ma acting as scribe for Anthony Lovell MD. August 04, 2017 10:39 AM. CBC Collected: 07/25/2017 Status: F Source: [place] 8:50 AM [facility] REPOSITORY TYPE CODE TESTS RESULT OUT OF REFERENCE UNITS RANGE LAB WBC 3.70-11.00 k/uL WBC 7.30 LAB RBC 4.20-6.00 m/uL Low RBC 3.90 LAB HGB 13.0-17.0 g/dL Low Hemoglobin 12.6 LAB HCT 39.0-51.0 % Hematocrit 40.2 LAB MCV 80.0-100.0 fL MCV High 103.1 LAB MCH 26.0-34.0 pG MCH 32.3 LAB MCHC 30.5-36.0 g/dL MCHC 31.3 LAB RDWCV 11.5-15.0 % RDW-CV 14.9 LAB PLTCT 150-400 k/uL Platelet Count 167 LAB MPV 9.0-12.7 fL MPV 11.4 LAB ABSNUC <0.01 k/uL Absolute nRBC <0.01 Performed By: #### CBC, CMP, LIPB, TSH, HBA1C #### [facility] [address] [place], [place] [address] COMP METABOLIC PANEL Collected: 07/25/2017 Status: F Source: [place] 8:50 AM [facility] REPOSITORY TYPE CODE TESTS RESULT OUT OF REFERENCE UNITS RANGE LAB TP 6.3-8.0 g/dL Protein, Total 6.7 LAB ALB 3.9-4.9 g/dL Albumin 3.9 LAB CA 8.5-10.2 mg/dL Calcium, Total 9.2 LAB TBIL 0.2-1.3 mg/dL Bilirubin, Total 0.3 LAB ALKP 36-108 U/L Alkaline Phosphatase 45 LAB AST 14-40 U/L AST 27 LAB GLU 74-99 mg/dL Glucose High 118 Result Comment: The [place] Diabetes Association (ADA) provides guidance for cutoff values for fasting glucose and random glucose. The ADA defines fasting as no caloric intake for at least 8 hours. Fas ting plasma glucose results between 100 to 125 mg/dL indicate increased risk for diabetes (prediabetes). Fasting plasma glucose results greater than or equal to 126 mg/dL meet the criteria for diagnosis of diabetes. In the absence of unequivocal hyperglycemia, results should be confirmed by repeat testing. In a patient with classic symptoms of hyperglycemia or hyperglycemic crisis, random plasma glucose results greater than or equal to 200 mg/dL meet the criteria for diagnosis of diabetes. Reference: Standards of Medical Care in Diabetes 2016, [place] Diabetes Association. Diabetes Care. 2016.39(Suppl 1). LAB BUN 9-24 mg/dL BUN High 34 LAB CRET 0.73-1.22 mg/dL Creatinine High 1.73 LAB NA 136-144 mmol/L Sodium 142 LAB K 3.7-5.1 mmol/L Potassium 5.0 LAB CL 97-105 mmol/L Chloride High 108 LAB CO2 22-30 mmol/L Low CO2 20 LAB AGAP 9-18 mmol/L Anion Gap 14 LAB ALT 10-54 U/L ALT 15 LAB GFRAA eGFR- Amer. 46 LAB GFRNAA . eGFR-All Other Races 38 Result Comment: eGFR (Estimated GFR) Units of measure: mL/min/1.73 meters squared eGFR is derived from the reexpressed MDRD Study equation using the following parameters: serum creatinine, age, gender and race. The creatinine assay has been calibrated to be traceable to IDMS. An eGFR <60 mL/min/1.73m2 for >3 months is consistent with chronic kidney disease. Refer to KDOQI guidelines for clinical interpretation. In patients with unstable renal function, e.g. those with acute kidney injury, the eGFR may not accurately reflect actual GFR. Performed By: #### CBC, CMP, LIPB, TSH, HBA1C #### [facility] [address] [place], [place] [address] LIPID PANEL, BASIC Collected: 07/25/2017 Status: F Source: [place] 8:50 AM [facility] REPOSITORY TYPE CODE TESTS RESULT OUT OF REFERENCE UNITS RANGE LAB CHOL <200 mg/dL Cholesterol High 223 Result Comment: <200 mg/dL, Desirable 200-239 mg/dL, Borderline high >239 mg/dL, High LAB TRIGLY <150 mg/dL Triglyceride 61 Result Comment: <150 mg/dL, Normal 150-199 mg/dL, Borderline high 200-499 mg/dL, High >499 mg/dL, Very high LAB HDL >39 mg/dL HDL-Cholesterol 42 Result Comment: 40-59 mg/dL, Acceptable >59 mg/dL, High: Negative risk factor for coronary heart disease <40 mg/dL, Low: Positive risk factor for coronary heart disease LAB LDL <100 mg/dL LDL-Cholesterol High 169 Result Comment: <100 mg/dL, Optimal 100-129 mg/dL, Near optimal/above optimal 130-159 mg/dL, Borderline high 160-189 mg/dL, High >189 mg/dL, Very high Secondary prevention optimal LDL Cholesterol levels are recommended to be < 70 mg/dL LAB NONHDL <130 mg/dL Non HDL High Cholesterol 181 Result Comment: <130 mg/dL, Optimal 130-159 mg/dL, Near optimal/above optimal 160-189 mg/dL, Borderline high 190-219 mg/dL, High >219 mg/dL, Very high Secondary prevention optimal non HDL Cholesterol levels are recommended to be < 100 mg/dL LAB FT hrs Fasting Time 14 LAB VLDL <30 mg/dL VLDL Cholesterol 12 LAB TCHDL <5.10 High TC:HDL Ratio 5.31 LAB LDLHDL <2.54 High LDL:HDL Ratio 4.02 Result Comment: Reference: 1. National Cholesterol Education Program ATP III Guideline At-A-Glance Quick Desk Reference: National Heart, Lung, and Blood Pearblossom. National Institutes of Health. 2001: NIH Publication No. 01-3305. 2. An International Atherosclerosis Society position paper: global recommendations for the management of dyslipidemia: executive summary, Atherosclerosis. 2014: 232(2):410-413. Performed By: #### CBC, CMP, LIPB, TSH, HBA1C #### [facility] [address] [place] [address] TSH Collected: 07/25/2017 Status: F Source: [place] 8:50 AM [facility] REPOSITORY TYPE CODE TESTS RESULT OUT OF RANGE REFERENCE UNITS LAB TSH 0.400-5.500 uU/mL TSH 5.140 Performed By: #### CBC, CMP, LIPB, TSH, HBA1C #### [facility] [address] [place] [id number] HEMOGLOBIN A1C Collected: 07/25/2017 Status: F Source: [place] 8:50 AM [facility] REPOSITORY TYPE CODE TESTS RESULT OUT OF REFERENCE UNITS RANGE LAB HGBA1C 4.3-5.6 % High Hemoglobin A1c 5.8 LAB HBA0 mg/dL Est. Average Glucose 120 Result Comment: eAG: (Estimated average glucose) is a calculated value from HgbA1c and is merchandiser retail representative of the average blood glucose level in the last 2-3 month period. Performed By: #### CBC, CMP, LIPB, TSH, HBA1C #### [facility] [address] [place], [place] [address] ALLERGIES ALLERGIES DATE TYPE / CODE NAME / CODE REACTION SEVERITY SOURCE 05/10/2018 Drug atorvastatin/F38524 MUSCLE PAIN Unknown [place] Allergy/416 6321(RXNORM) [facility] 730974([facility] ED [facility]) Repository 04/21/2018 Drug No Known Unknown [place] Allergy/416 Allergies/[id number] [facility] 562254([facility](RXNO) [facility] ED CT) Repository 04/13/2018 Drug NSAIDS OTHER: SEE C [facility] Class/61672 (NON-STEROIDAL [place] 1003(SNOMED ANTI-INFLAMMATORY Repository CT) DRUG) 01/13/2017 DRUG ATORVASTATIN [facility] INGREDI/419 CALCIUM Three Repository 687976(SNOM ED CT) 01/13/2017 DRUG ATORVASTATIN Myalgia [facility] INGREDI/419 CALCIUM [place] 215086(SN Repository ED CT) NG/[id number] ATORVASTATIN [facility] 6(SNOMED CALCIUM [facility]) Repository NG/[id number] NSAIDS [facility] 6(SNOMED (NON-STEROIDAL Health [facility] CT) ANTI-INFLAMMATORY Repository DRUG) ENCOUNTERS ENCOUNTERS ADMIT/DISCHARGE ACCOUNT NUMBER ADMITTING ENCOUNTER LOCATION SOURCE CLASS 06/07/2018 [id number] Ambulatory [facility] MEDICAL Repository CENTERBuildi ng:AGVASACC 05/30/2018/05/30/19 [id number] Ambulatory [place] 19 [facility] ding:CLSP Repository 05/10/2018 [id number] [facility]ulatory [facility] ding:LAB Repository 05/10/2018/05/10/20 [id number] Ambulatory BMSBuilding: [place] 18 [facility] Repository 04/26/2018/04/26/20 [id number] Ambulatory BMSBuilding: [place] 18 BMS.CF.[facility] Repository 04/26/2018/04/26/20 [id number] Ambulatory [address] ding:ENRoom: Repository AC11 04/24/2018/04/24/20 [id number] Ambulatory [address] Repository 04/21/2018/04/21/20 [id number] Ambulatory BMSBuilding: [place] 18 BMS.[facility] Repository 04/20/2018 [id number] Ambulatory BMSBuilding: [place] BMS.[facility] Repository 04/13/2018/04/13/20 [id number] Ambulatory [address] Repository 04/13/2018/04/17/20 [id number] Ambulatory [address] Repository 04/10/2018/04/10/20 [id number] Ambulatory [address] Repository 03/28/2018/03/30/20 [id number] [place] Inpatient [address] ding:PCURoom Repository : HOV455Glj: 1 03/28/2018 [id number] [place] Ambulatory BMSBuilding: [place] BMS.Pending [facility] to [facility] Repository 03/28/2018 [id number] [place] Ambulatory BMSBuilding: [place] BMS.CF.[facility] Repository 03/28/2018 [id number] [place] Ambulatory BMSBuilding: [place] BMS.Pending sale to [facility] Repository 03/28/2018 [id number] [place] Ambulatory BMSBuilding: [place] BMS.CF.[facility] Repository 03/28/2018 [id number] [place] Ambulatory BMSBuilding: [place] BMS.CF.[facility] Repository 03/28/2018 [id number] [place] Ambulatory BMSBuilding: [place] BMS.WIP [facility] Repository 03/28/2018 [id number] [place] Ambulatory BMSBuilding: [place] BMS.CF.[facility] Repository 03/28/2018/03/30/20 [id number] Ambulatory BMSBuilding: [place] 18 [facility] Repository 03/22/2018/03/24/20 [id number] Ambulatory [place] 18 [facility] [place] Repository 03/13/2018/03/13/20 [id number] Ambulatory [place] 18 [facility] [place] Repository 02/27/2018 [id number] Anthony Serrato Ambulatory [facility] Repository 02/27/2018/02/28/20 [id number] Ambulatory Building:[place] [address] ORTHOMORRISR [facility] Repository 12/27/2017/12/28/19 [id number] Ambulatory [address] [place] Repository 12/13/2017/12/14/19 [id number] Ambulatory [place] [address] [facility] [place] Repository 12/13/2017/12/14/19 [id number] Ambulatory [place] [address] [facility] [place] Repository 12/08/2017/12/13/19 [id number] Ambulatory [place] 18 [facility] [place] Repository 11/29/2017/11/30/19 [id number] Ambulatory [place] 18 [facility] [place] Repository 11/29/2017/11/30/19 [id number] Ambulatory [place] 18 [facility] [place] Repository 11/29/2017/12/06/19 [id number] Ambulatory [place] 18 [facility] [place] Repository 11/21/2017/11/22/19 [id number] Ambulatory [place] 18 [facility] [place] Repository 11/21/2017/11/29/19 [id number] Ambulatory [place] 18 [facility] [place] Repository 09/08/2017/09/13/19 [id number] Ambulatory [place] 18 [facility] [place] Repository 08/04/2017/08/06/19 [id number] Ambulatory [place] 18 [facility] [place] Repository 07/25/2017/07/26/19 [id number] Ambulatory [place] 18 [facility] [place] Repository PAYERS PAYERS ENCOUNTER GUARANTOR PAYER SUBSCRIBER SOURCE 06/07/2018 NIRMAL [place] TATEDOB: Insurance:MEDICARE A TATEDOB: Health System [id number] AND BPolicy Number: [id number] Repository [facility] [id number] [place] Date: [address]Hvb: () 06/07/2018 Secondary NIRMAL D [facility] Insurance:ANTHEM TATEDOB: Health System MEDICARE [id number] Repository SUPPLEMENTPolicy Number: [id number] Date: 05/30/2018 NIRMAL D Primary NIRMAL D [place] [id number] TR Insurance:MEDICARE TATEDOB: Community [place] PART A BPolicy Number: [id number] Hospital 11623Jib: (011) [id number] Repository [phone] () Date:2018-04-27 05/30/2018 Secondary NIRMAL D [place] Insurance:ANTHEMPolicy TATEDOB: Community Number: [id number] Hospital [id number] Repository Date:6878-44-45IF [address] [place] [address] 30877KU: 05/30/2018 Tertiary NOT GIVENUNK [place] Insurance:SELF PAY [facility]: Effective Repository Date:2018-04-27 05/10/2018 NIRMAL D Primary NIRMAL D [place] [id number] TR Insurance:MEDICARE TATEDOB: [address] [place] PART A BPolicy Number: [id number] Hospital 26055Mfn: (160) [id number] Repository [phone] () Date:2018-05-10 05/10/2018 Secondary NIRMAL D [place] Insurance:ANTHEMPolicy TATEDOB: Community Number: [id number] Hospital [id number] Repository Date:4315-26-00KB [address] [place] [address] 06284SH: 05/10/2018 Tertiary NOT GIVENUNK [place] Insurance:SELF PAY [facility] Number: Effective Repository Date:2018-05-10 05/10/2018 NIRMAL D Primary NIRMAL D [place] [id number] TR Insurance:MEDICARE TATEDOB: [facility] [place] PART A BPolicy Number: [id number] Hospital 24564Mst: 330 [id number] Repository [phone] () Date:2018-04-27 05/10/2018 Secondary NIRMAL D [place] Insurance:ANTHEMPolicy TATEDOB: Community Number: [id number] Hospital [id number] Repository Date:3040-91-42IV [address] [place] [address] 04625CQ: 05/10/2018 Tertiary NOT GIVENUNK [place] Insurance:SELF PAY [facility] Number: Effective Repository Date:2018-05-10 04/26/2018 NIRMAL D Primary NIRMAL D [place] [id number] TR Insurance:MEDICARE TATEDOB: Community [address] [place] [address], [place] PART A BPolicy Number: [id number] Hospital 17875Jyj: 330 [id number] Repository [phone] () Date:2018-04-03 04/26/2018 Secondary NIRMAL D [place] Insurance:ANTHEMPolicy TATEDOB: Community Number: [id number] Hospital [id number] Repository Date:8793-58-83[address], [place] [address]UZ: 04/26/2018 Tertiary NOT GIVENUNK [place] Insurance:SELF PAY [facility] Number: Effective Repository Date:2018-04-26 04/26/2018 NIRMAL D Primary NIRMAL D [place] [id number] TR Insurance:MEDICARE TATEDOB: Community [facility] [place] PART A BPolicy Number: [id number] Hospital 88160Chu: 330 [id number] Repository [phone] () Date:2018-04-03 04/26/2018 Secondary NIRMAL D [place] Insurance:ANTHEMPolicy TATEDOB: Community Number: [id number] Hospital [id number] Repository Date:3903-59-32[address], [place] [address]NY: 04/26/2018 Tertiary NOT GIVENUNK [place] Insurance:SELF PAY [facility] Number: Effective Repository Date:2018-04-03 04/21/2018 NIRMAL D Primary NIRMAL D [place] [id number] TR Insurance:MEDICARE TATEDOB: Community [place] PART A BPolicy Number: [id number] Hospital 66091Ddg: 330 [id number] Repository [phone] () Date:2018-03-31 04/21/2018 Secondary NIRMAL D [place] Insurance:ANTHEMPolicy TATEDOB: Community Number: [id number] Hospital [id number] Repository Date:4988-25-48[id number] [place] [address] 228[address]HE: 04/21/2018 Tertiary NOT GIVENUNK [place] Insurance:SELF PAY [facility] Number: Effective Repository Date:2018-04-21 04/20/2018 NIRMAL D Primary NIRMAL D [place] [id number] TR Insurance:MEDICARE TATEDOB: [place] PART A BPolicy Number: [id number] Hospital 50980Rva: (552) [id number] Repository [phone] () Date:2018-04-20 04/20/2018 Secondary NIRMAL D [place] Insurance:ANTHEMPolicy TATEDOB: Community Number: [id number] Hospital [id number] Repository Date:1542-81-60CU [address] [place] [address] 69[address]ZQ: 04/20/2018 Tertiary NOT GIVENUNK [place] Insurance:SELF PAY [facility] Number: Effective Repository Date:2018-04-20 03/28/2018 NIRMAL D Primary NIRMAL D [place] [id number] TR Insurance:MEDICARE TATEDOB: Community [place] PART A BPolicy Number: [id number] Hospital 26581Hod: 330 [id number] Repository [phone] () Date:2018-03-28 03/28/2018 Secondary NIRMAL D [place] Insurance:ANTHEMPolicy TATEDOB: Community Number: [id number] Hospital [id number] Repository Date:4044-75-66WW [address] [place] [address] 65852JV: 03/28/2018 Tertiary NOT GIVENUNK [place] Insurance:SELF PAY [facility] Number: Effective Repository Date:2018-03-28 03/28/2018 NIRMAL D Primary NIRMAL D [place] [id number] TR Insurance:MEDICARE TATEDOB: Community [address] [place] [address], [place] PART A BPolicy Number: [id number] Hospital 25655Lvm: 330 [id number] Repository [phone] () Date:2018-03-28 03/28/2018 Secondary NIRMAL D [place] Insurance:ANTHEMPolicy TATEDOB: Community Number: [id number] Hospital [id number] Repository Date:2645-38-35KC [address] [place] [address] 69776TA: 03/28/2018 Tertiary NOT GIVENUNK [place] Insurance:SELF PAY [facility] Number: Effective Repository Date:2018-03-28 03/28/2018 NIRMAL D Primary NIRMAL D [place] [id number] TR Insurance:MEDICARE TATEDOB: Community [address] [place] [address], [place] PART A BPolicy Number: [id number] Hospital 16232Zhp: 330 [id number] Repository [phone] () Date:2018-03-28 03/28/2018 Secondary NIRMAL D [place] Insurance:ANTHEMPolicy TATEDOB: Community Number: [id number] Hospital [id number] Repository Date:3901-65-37EN [address] [place] [address] 42572ZI: 03/28/2018 Tertiary NOT GIVENUNK [place] Insurance:SELF PAY [facility] Number: Effective Repository Date:2018-03-28 03/28/2018 NIRMAL D Primary NIRMAL D [place] [id number] TR Insurance:MEDICARE TATEDOB: Community [address] [place] [address], [place] PART A BPolicy Number: [id number] Hospital 476[address]Sgj: 330 [id number] Repository [phone] () Date:2018-03-28 03/28/2018 Secondary NIRMAL D [place] Insurance:ANTHEMPolicy TATEDOB: Community Number: [id number] Hospital [id number] Repository Date:8634-68-64EF [address] [place] [address] 83004DI: 03/28/2018 Tertiary NOT GIVENUNK [place] Insurance:SELF PAY [facility] Number: Effective Repository Date:2018-03-28 03/28/2018 NIRMAL D Primary NIRMAL D [place] [id number] TR Insurance:MEDICARE TATEDOB: Community [address] [place] [address] PART A BPolicy Number: [id number] Hospital 96584Tby: 330 [id number] Repository [phone] () Date:2018-03-28 03/28/2018 Secondary NIRMAL D [place] Insurance:ANTHEMPolicy TATEDOB: Community Number: [id number] Hospital [id number] Repository Date:9313-88-49FA [address] [place] [address] 75614DY: 03/28/2018 Tertiary NOT GIVENUNK [place] Insurance:SELF PAY [facility] Number: Effective Repository Date:2018-03-28 03/28/2018 NIRMAL D Primary NIRMAL D [place] [id number] TR Insurance:MEDICARE TATEDOB: Community [address] [place] [address], [place] PART A BPolicy Number: [id number] Hospital 71812Oau: 330 [id number] Repository [phone] () Date:2018-03-28 03/28/2018 Secondary NIRMAL D [place] Insurance:ANTHEMPolicy TATEDOB: Community Number: [id number] Hospital [id number] Repository Date:0091-26-62OO [address] [place] [address] 97135EO: 03/28/2018 Tertiary NOT GIVENUNK [place] Insurance:SELF PAY [facility] Number: Effective Repository Date:2018-03-28 03/28/2018 NIRMAL D Primary NIRMAL D [place] [id number] TR Insurance:MEDICARE TATEDOB: Community [place] PART A BPolicy Number: [id number] Hospital 41866Tdr: (770) [id number] Repository [phone] () Date:2018-03-28 03/28/2018 Secondary NIRMAL D [place] Insurance:ANTHEMPolicy TATEDOB: Community Number: [id number] Hospital [id number] Repository Date:4259-23-68NT [address] [address]KN: 03/28/2018 Tertiary NOT GIVENUNK [place] Insurance:SELF PAY [facility] Number: Effective Repository Date:2018-03-28 03/28/2018 NIRMAL D Primary NIRMAL D [place] [id number] TR Insurance:MEDICARE TATEDOB: Community [place] PART A BPolicy Number: [id number] Hospital 75371Oyl: (410) [id number] Repository [phone] () Date:2018-03-28 03/28/2018 Secondary NIRMAL D [place] Insurance:ANTHEMPolicy TATEDOB: Community Number: [id number] Hospital [id number] Repository Date:9605-67-72XB [address] [place] [address] 49277LG: 03/28/2018 Tertiary NOT GIVENUNK [place] Insurance:SELF PAY [facility] Number: Effective Repository Date:2018-03-28 03/28/2018 NIRMAL D Primary NIRMAL D [place] [id number] TR Insurance:MEDICARE TATEDOB: Community [place] PART A BPolicy Number: [id number] Hospital 11997Qjc: (413) [id number] Repository [phone] () Date:2018-03-28 03/28/2018 Secondary NIRMAL D [place] Insurance:ANTHEMPolicy TATEDOB: Community Number: [id number] Hospital [id number] Repository Date:0763-59-98[address], [place] [address]EU: 03/28/2018 Tertiary NOT GIVENUNK [place] Insurance:SELF PAY [facility] Number: Effective Repository Date:2018-03-28 02/27/2018 Primary NIRMAL D [facility] Insurance:MedicarePoli TATEDOB: [place] Number: [id number] [facility] [id number] [address] Repository Date:1609-52-65Gjna [address] [place] [address] Name:Jo Ann Kwon 49234Ghz: () 02/27/2018 Secondary NIRMAL D [facility] Insurance:MedicarePoli TATEDOB: [place] Number: [id number] [facility] [id number] [address] Repository Date:9979-12-16Batu [address] [place] [address] Name:Jo Ann Mead 439[address]Ahd: (HP) 02/27/2018 Tertiary NIRMAL D [facility] Insurance:[employer] TATEDOB: [facility] Number: [id number] [facility] [id number] [address] Repository Date:Plan Name:Health [facility] [place] [address]Qcy: (HP) 02/27/2018 NIRMAL TATEDOB: Primary NIRMAL TATEDOB: [facility] Insurance:MEDICAREPoli [id number] [address] cy Number: [address] [place] [id number] [address] [place] [address] 87079Vib: 330) Date:6646-48-72AIN J15 33296Cnc: () PART A CLAIMSPO [phone] () [address], [place] [address]RC: 02/27/2018 Secondary NIRMAL RLDIVYAOB: [facility] Insurance:ANTHEMPolicy [id number] Three Repository Number: [address] [place] [address] [id number] [address] Date:5212-86-19EF [address] [place], [place] [address]JK:
== END 2018-04-26 08:55 | disposition home or self-care (01) ==
LOC: EN 06:44 → AC 06:45
PROVIDERS: Family Provider Family Medicine; PCP Family Medicine; Referring Provider Surgery; Visit Provider Surgery
PROC: 0DJ08ZZ Inspection of Upper Intestinal Tract, Via Natural or Artificial Opening Endoscopic (ICD-10-PCS; CPT 43235; principal; 2018-04-26 07:55)
DX: K31.89 Other diseases of stomach and duodenum (principal); K29.01 Acute gastritis with bleeding; K21.9 Gastro-esophageal reflux disease without esophagitis; I12.9 Hypertensive chronic kidney disease with stage 1 through stage 4 chronic kidney disease, or unspecified chronic kidney disease; N18.3 Chronic kidney disease, stage 3 (moderate); E66.01 Morbid (severe) obesity due to excess calories; Z68.41 Body mass index [BMI] 40.0-44.9, adult; M10.9 Gout, unspecified; M19.90 Unspecified osteoarthritis, unspecified site; E03.9 Hypothyroidism, unspecified; I25.2 Old myocardial infarction; E78.00 Pure hypercholesterolemia, unspecified; F32.9 Major depressive disorder, single episode, unspecified; Z86.2 Personal history of diseases of the blood and blood-forming organs and certain disorders involving the immune mechanism; Z87.19 Personal history of other diseases of the digestive system; Z86.19 Personal history of other infectious and parasitic diseases; Z79.82 Long term (current) use of aspirin; Z79.899 Other long term (current) drug therapy; Z87.891 Personal history of nicotine dependence
CPT/HCPCS: 43235; J7120

== ENCOUNTER → 2018-05-10 10:50 | Outpatient (CLI) | payer MEDICARE, BC, SELFPAY ==
[2018-05-10 09:50] VITALS: BMI 38.5
[2018-05-10 11:48] LABS: Hematocrit 34.3 % (40-54); Hemoglobin 10.5 g/dl (13.0-16.5); Mean Corp Hgb Conc 30.6 g/gl (32-36); Mean Corpuscular Hgb 29.4 pg (27.0-32.0); Mean Corpuscular Volume 96.1 fL (80-94); Platelet Count 224 K/mm3 (150-450); RBC Distribution Width CV 15.2 % (11.6-14.6); RBC Distribution Width SD 53.7 fl (35.1-43.9); Red Blood Count 3.57 M/mm3 (4.6-6.2); White Blood Count 8.5 K/mm3 (4.4-11.0)
[2018-05-10 11:49] LABS: Scan Indicated on CBC? Y/N NO
[2018-05-10 12:01] LABS: International Normalized Ratio 1.2; Prothrombin Time (Protime)PT. 15.1 SECONDS (11.7-14.9)
[2018-05-10 12:02] LABS: Partial Thromboplast Time 28.2 Seconds (24.1-36.2)
[2018-05-10 12:21] LABS: Anion Gap 8 (5-15); BUN 38 mg/dL (7-18); BUN/Creat Ratio 27.1 RATIO (10-20); Chloride 111 mmol/L (98-107); EST Glomerular Filtration Rate 52 mL/min (>60); Est Glom Filt Rate - Afr Amer 63 mL/min (>60); Glucose 123 mg/dL (74-106); Potassium 4.6 mmol/L (3.5-5.1); Sodium Level 144 mmol/L (136-145)
== END ==
PROVIDERS: Family Provider Family Medicine; PCP Family Medicine; Referring Provider Internal Medicine Cardiovascular Disease; Visit Provider Internal Medicine Cardiovascular Disease
DX: R07.9 Chest pain, unspecified (principal); I21.4 Non-ST elevation (NSTEMI) myocardial infarction
CPT/HCPCS: 36415; 80048; 85027; 85610; 85730

== ENCOUNTER 2018-05-30 07:49 | Day surgery (SDC) | payer MEDICARE, BC, SELFPAY ==
[2018-05-10 09:50] VITALS: BMI 38.5
[2018-05-29 10:33] VITALS: BMI 38.5
--- NOTE | 2018-05-30 14:42 | CL.D_ITS ---
Patient Name: HIRAM KRUEGER Study Date: 05/30/2018 Performing: Zac Parker MD Ht: 74.01 inches 188 cm : 1935 Wt: 299.83 lbs 136 kg Age: 82 Gender: male BSA: 2.58 PROCEDURE(S) PERFORMED ST75-ELR/COR CLINICAL PROFILE AND INDICATIONS Indications: Suspected CAD Heart Failure: None Stress/Imaging Stress Test w/SPECT MPI: Yes Result: PositiveStress Test with SPECT MPI: Positive Angina Classification Anginal Classification w/in 2 Weeks: CCS II CAD Presentations: Other: Dyspnea on Exertion / Angina Pectoris Equivalent CONCLUSIONS [place] Multivessel CAD RECOMMENDATIONS Risk factor modification Medical therapy Surgery consult for coronary revascularization DESCRIPTION OF PROCEDURE The patient arrived to the procedure lab. The risks and benefits of the procedure as well as a full d escription of our services here and current unavailability of surgical backup were fully explained to the patient and/or their significant other prior to the catheterization. The Timeout was completed, verifying the correct patient and procedure. The patient's procedural site was prepped and draped in the usual fashion. Local anesthetic was given subcutaneously to right radial region with Lidocaine 2% . Local anesthetic was given subcutaneously to right groin region with Lidocaine 2%. Using a modified Seldinger technique, arterial access was obtained via the right femoral artery, a 4Fr sheath was ins erted Left Coronary Artery selective angiography was performed in multiple views using a 4 Fr. JL5 c atheter. Right Coronary Artery selective angiography was then performed in multiple views using a 4 F r. JR4 catheter.The arterial sheath was pulled and manual compression applied until hemostasis is achieved. CORONARY ANGIOGRAPHY DOMINANCE: Right Dominant LEFT HEART ASSESSMENT Left Ventricular Ejection Fraction: Not assessed LEFT MAIN: Mild calcification, Distal: Eccentric: 50 % Stenosis LEFT ANTERIOR DECENDING ARTERY: Mild luminal irregularities PROX LAD: Moderate calcification MID LAD: 85 % Stenosis DIAGONAL 1: Ostial - 50 % Stenosis, Proximal - Mild luminal irregularities CIRCUMFLEX ARTERY: PROX CIRC: Moderate calcification, Diffuse: Irregular: 75 % Stenosis OM 1: Ostial - 95 % Stenosis RIGHT CORONARY ARTERY: Diffuse: Eccentic: 25 % Stenosis COLLATERAL FLOW: Collateral flow from Right to Left COMPLICATIONS No Complications PROCEDURE MEDICATIONS Fentanyl 50 mcg IV Oxygen: 2 L/min via nasal cannula SUMMARY OF HEMODYNAMIC DATA Time AIR REST ECG 08:33:32 AO 131/62 (89) SA 10:12:23 Signed By Zac Parker MD On 05/30/2018 14:42:13 Zac Parker MD
== END 2018-05-30 15:20 | disposition home or self-care (01) ==
LOC: CLSP 07:53
PROVIDERS: Family Provider Family Medicine; PCP Family Medicine; Referring Provider Internal Medicine Cardiovascular Disease; Visit Provider Internal Medicine Cardiovascular Disease
DX: I25.10 Atherosclerotic heart disease of native coronary artery without angina pectoris (principal); I12.9 Hypertensive chronic kidney disease with stage 1 through stage 4 chronic kidney disease, or unspecified chronic kidney disease; N18.3 Chronic kidney disease, stage 3 (moderate); I25.2 Old myocardial infarction; E66.01 Morbid (severe) obesity due to excess calories; Z68.41 Body mass index [BMI] 40.0-44.9, adult; M19.90 Unspecified osteoarthritis, unspecified site; M10.9 Gout, unspecified; Z86.19 Personal history of other infectious and parasitic diseases; Z87.19 Personal history of other diseases of the digestive system; Z79.82 Long term (current) use of aspirin; Z79.899 Other long term (current) drug therapy; Z87.891 Personal history of nicotine dependence
CPT/HCPCS: 93454; 99152; 99153; J7040; Q9967; C1769; C1894

== ENCOUNTER 2018-07-08 18:00 | Inpatient (IN) | payer MEDICARE, BC, SELFPAY ==
[2018-05-29 10:33] VITALS: BMI 38.5
[2018-07-08 18:14] VITALS: BP 115/74; PULSE 95; RESP 18; TEMP 37.2; O2SAT 93
--- NOTE | 2018-07-08 18:15 | NURSING ---
Pt admitted to room 11 from [facility] via wheelchair at 1800. Oriented to room and call light explained.
--- NOTE | 2018-07-08 18:53 | PCM.HP.STD ---
Problem List (1) Healthcare associated bacterial pneumonia Status: Acute (2) Atrial flutter Status: Acute (3) NSTEMI (non-ST elevated myocardial infarction) Status: Chronic (4) Coronary artery disease Status: Chronic (5) Acute blood loss anemia Status: Acute (6) Dizziness Status: Chronic (7) Depression Status: Chronic (8) GERD (gastroesophageal reflux disease) Status: Chronic (9) Chronic kidney disease Status: Chronic (10) Hypertension Status: Chronic (11) Osteoarthritis Status: Chronic Qualifiers: (12) Hypothyroidism Status: Chronic Qualifiers: (13) Gout Status: Chronic Qualifiers: History of Present Illness Date of Admission: 07/08/18 Chief Complaint: Here for rehabilitation, strengthening, prior to discharge home with spouse. The patient is a 82 year old Male with below past medical history with following: March,. Patient admitted to [facility] for GI bleeding secondary to NSAID use for low back pain. His anemia required transfusion. He also suffered NSTEMI. Stress testing abnormal suggesting possible previous lateral infarction, stress ischemia with ejection fraction 55%. Repeat upper endoscopy showed resolution of GI bleeding. 05/30/2018 Dr. Parker performed heart catheterization showed severe multivessel coronary disease. Patient was referred for surgical consultation for CABG. 06/23/2018 Patient underwent CABG x 2 at [facility]. Transfused 2 units PRBC postoperatively. 06/25/2018 Extubated. 06/28/2018 Developed paroxysmal atrial flutter, started on oral anticoagulant. 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 Polymicrobial pneumonia E. Coli, H. Flu, Klebsiella treated with Ceftriaxone 2GM IV. Carotid doppler ultrasound showed right ICA 60-79% stenosis, left ICA 40-59% stenosis. Acute kidney injury improved with medical management. 07/08/2018 Admit to TCU with debility, here for rehabilitation, strengthening, prior to discharge home with spouse. Past Medical History Past Medical History (Chronic Problems): Chronic Problems (Last Updated 04/20/18 @ 08:39 by Pearl Vickers) NSTEMI (non-ST elevated myocardial infarction) (Chronic) Coronary artery disease (Chronic) Dizziness (Chronic) Depression (Chronic) GERD (gastroesophageal reflux disease) (Chronic) Chronic kidney disease (Chronic) Hypertension (Chronic) Atherosclerotic heart disease of [place] coronary artery without angina pectoris (Chronic) Essential hypertension (Chronic) Chronic renal insufficiency (Chronic) Morbid obesity with BMI of 40.0-44.9, adult (Chronic) Osteoarthritis (Chronic) Hypothyroidism (Chronic) Gout (Chronic) CKD (chronic kidney disease) stage 3, GFR 30-59 ml/min (Chronic) Medical History: Medical History (Last Updated 04/20/18 @ 08:39 by Pearl Vickers) Essential hypertension (Chronic) I10 GI bleed (Acute) K92.2 NSTEMI (non-ST elevated myocardial infarction) (Acute) I21.4 Chronic renal insufficiency (Chronic) N18.9 Macrocytic anemia (Acute) D53.9 Morbid obesity with BMI of 40.0-44.9, adult (Chronic) E66.01, Z68.41 Osteoarthritis (Chronic) M19.90 Hypothyroidism (Chronic) E03.9 Gout (Chronic) M10.9 Hyperkalemia (Acute) E87.5 Sepsis (Acute) A41.9 CKD (chronic kidney disease) stage 3, GFR 30-59 ml/min (Chronic) N18.3 Cellulitis (Acute) L03.90 HTN (hypertension) (Inactive) I10 Allergies atorvastatin [From Lipitor] Adverse Reaction (Verified 05/10/18 09:52) MUSCLE PAIN Home Medications: Ambulatory Orders Medication Instructions Recorded Allopurinol [Zyloprim] 300 mg PO DAILY 03/28/18 Fluoxetine HCl 40 mg PO DAILY 03/28/18 Levothyroxine Sodium [Synthroid] 125 mcg PO DAILY 03/28/18 Acetaminophen [Tylenol] 650 mg PO Q6H PRN PRN 07/08/18 Albuterol Aerosols [Ventolin 2.5 mg INHALATION Q2H PRN PRN 07/08/18 Aerosols] Apixaban [Eliquis] 5 mg PO BID 07/08/18 Ascorbic Acid 500 mg PO BID 07/08/18 Aspirin E.C. [Ecotrin] 81 mg PO DAILY 07/08/18 Atorvastatin Calcium [Lipitor] 40 mg PO QHS 07/08/18 Bisacodyl 10 mg RC DAILY PRN 07/08/18 Colchicine 0.6 mg PO DAILY 07/08/18 Ferrous Sulfate 325 mg PO BID 07/08/18 Furosemide 40 mg PO DAILY 07/08/18 Gabapentin [Neurontin] 300 mg PO TID 07/08/18 Ipratropium/Albuterol Sulfate 3 ml IH 5X/DAY 07/08/18 [Iprat-Albut 0.5-3(2.5) mg/3 ml] Lactobacillus Acidophilus 1 tablet PO BID 07/08/18 [Acidophilus] Melatonin 3 mg PO QHS PRN 07/08/18 Metoprolol Tartrate [Lopressor 12.5 mg PO TID 07/08/18 (beta av)] Oxycodone HCl/Acetaminophen 1 each PO Q6H PRN 07/08/18 [Oxycodone-Acetaminophen 5-325] Pantoprazole Sodium [Protonix] 40 mg PO DAILY 07/08/18 Polyethylene Glycol 3350 [Miralax] 17 gm PO DAILY PRN 07/08/18 Senna/Docusate Sodium [Senokot-S, 1 tablet PO DAILY PRN 07/08/18 Kimi-Colace] Tamsulosin HCl 0.4 mg PO DAILY 07/08/18 Surgical History: Surgical History (Last Updated 04/20/18 @ 08:41 by Pearl Vickers) History of bilateral hip replacements Z96.643 S/P bilateral foot surgery Z98.890 Surgical History: coronary bypass surgery - x 2., total hip arthroplasty - Bilateral., - - bilateral foot surgeries. Psychiatric History: Depression Lives: Spouse/ Significant Other Smoking Status: Former smoker Tobacco Use: Non-smoker Alcohol: None Drugs: None - *Family History Maternal Family History: Family History (Last Updated 04/20/18 @ 08:41 by Pearl Vickers) Father Cancer History Items: No pertinent history Paternal Family History: Family History (Last Updated 04/20/18 @ 08:41 by Pearl Vickers) Father Cancer History Items: Cancer - Tobacco user, lung cancer diagnosis. Review of Systems Constitutional: Denies: Chills, Fever, Weight Change HEENT: Denies: Head Aches, Sinus Congestion, Sinus Drainage Cardiovascular: Denies: Chest Pain, Palpitations Respiratory: Denies: Cough, Shortness of breath at rest, Sputum production Gastrointestinal: Denies: Abdominal Pain, Nausea, Vomiting Genitourinary: Denies: Dysuria Musculoskeletal: Denies: Joint Pain, Joint Tenderness Skin: Denies: Rash, Wounds Neurological: Denies: Numbness, Tingling, Focal weakness Psychiatric: Denies: Anxiety, Depression, Homicidal Ideations, Suicidal Ideations Hematologic/ Lymphatic: Denies: Easy Bruising, Easy Bleeding VTE Information - Inpt Only VTE Present on Admission: No VTE Mechan Device Prophylaxis: Knee High KHARI Hose VTE Pharm Prophylaxis ordered?: No Reason prophylaxis not ordered:: Treatment Not Indicated Patient Problems: Active and Suspected Problems (Last Updated 04/20/18 @ 08:39 by Pearl Vickers) Healthcare associated bacterial pneumonia (Acute) Atrial flutter (Acute) Acute blood loss anemia (Acute) - Physical Exam General: Alert, Oriented x3, Cooperative HEENT: Atraumatic, PERRLA, EOMI, Normocephalic Neck: Supple, No JVD, Negative Carotid Bruits Lungs: Clear to auscultation, Normal air movement Cardiovascular: Regular rate, No murmurs Abdomen: Bowel Sounds Present, Soft, Non Tender Extremities: No edema, Capillary Refill Less than 3 Seconds Skin: No rashes, No breakdown Musculoskeletal: No Tenderness to Palpation of Joints or Extremities Neurological: Cranial nerves II-XII grossly intact Psych/Mental Status: Normal Affect, Appropriate Vital Signs Temp Pulse Resp BP Pulse Ox 99 F 95 18 115/74 93 07/08/18 18:14 07/08/18 18:14 07/08/18 18:14 07/08/18 18:14 07/08/18 18:14 Oxygen Flow Rate (L/min) 3 Oxygen Delivery Method Nasal Cannula Weight: 140.856 kg Body Mass Index (BMI) 38.5 Finger Stick Blood Glucose 119 Assessment/Plan All Active Problems (Last Updated 04/20/18 @ 08:39 by Pearl Vickers) Healthcare associated bacterial pneumonia (Acute) Atrial flutter (Acute) Acute blood loss anemia (Acute) Chest pain (Acute) GI bleed (Acute) NSTEMI (non-ST elevated myocardial infarction) (Acute) Macrocytic anemia (Acute) Hyperkalemia (Acute) Sepsis (Acute) Cellulitis (Acute) 82 year old male with below past medical history hospitalized at [facility], 06/23/2018, underwent CABG x 2, post-operative course complicated by polymicrobial pneumonia, anemia requiring transfusion, paroxysmal atrial flutter, acute kidney injury, admitted to TCU with debility, here for rehabilitation, strengthening, prior to discharge home with spouse. Debility - PT/OT. Pain - Tylenol 1000MG Q6H PRN mild pain, Oxycodone 5MG Q4H PRN moderate pain. Bowel - Miralax 17GM daily, Senna/colace 2 tablets BID, Dulcolax 10MG [place] daily PRN. Pneumonia vaccination - Administer Prevnar 13 and/or Pneumovax 23 as necessary. DVT prophylaxis - not necessary, already on Eliquis. COPD - Duoneb 3ML Q6HRT, Albuterol 2.5MG Q2H PRN. Gout - Allopurinol 300MG daily, Colchicine 0.6MG daily. Atrial Fibrillation - Metoprolol 12.5MG BID, Eliquis 5MG BID. Vitamin C deficiency - Vitamin C 500MG BID. Coronary artery disease status post CABG x 2 - Metoprolol 12.5MG BID, Aspirin 81MG daily. Hyperlipidemia - Atorvastatin 40MG QHS. Iron deficiency anemia - Ferrex 150MG twice daily. Depression - Fluoxetine 40MG daily, resident doing well with chronic jail use, GDR clinically contraindicated. Fluid overload - Furosemide 40MG daily. Neuropathic pain - Gabapentin 300MG TID. GI prophylaxis - Lactobacillus 1 tablet BID. Hypothyroidism - Levothyroxine 125MCG daily. Insomnia - Melatonin 3MG QHS PRN. GERD - Pantoprazole 40MG daily. BPH/Urinary retention - Tamsulosin 0.4MG daily.
--- NOTE | 2018-07-08 18:59 | HP.PCM_ITS ---
Problem List (1) Healthcare associated bacterial pneumonia Status: Acute (2) Atrial flutter Status: Acute (3) NSTEMI (non-ST elevated myocardial infarction) Status: Chronic (4) Coronary artery disease Status: Chronic (5) Acute blood loss anemia Status: Acute (6) Dizziness Status: Chronic (7) Depression Status: Chronic (8) GERD (gastroesophageal reflux disease) Status: Chronic (9) Chronic kidney disease Status: Chronic (10) Hypertension Status: Chronic (11) Osteoarthritis Status: Chronic Qualifiers: (12) Hypothyroidism Status: Chronic Qualifiers: (13) Gout Status: Chronic Qualifiers: History of Present Illness Date of Admission: 07/08/18 Chief Complaint: Here for rehabilitation, strengthening, prior to discharge home with spouse. The patient is a 82 year old Male with below past medical history with following: March,. Patient admitted to [facility] for GI bleeding secondary to NSAID use for low back pain. His anemia required transfusion. He also suffered NSTEMI. Stress testing abnormal suggesting possible previous lateral infarction, stress ischemia with ejection fraction 55%. Repeat upper endoscopy showed resolution of GI bleeding. 05/30/2018 Dr. Parker performed heart catheterization showed severe multivessel coronary disease. Patient was referred for surgical consultation for CABG. 06/23/2018 Patient underwent CABG x 2 at [facility]. Transfused 2 units PRBC postoperatively. 06/25/2018 Extubated. 06/28/2018 Developed paroxysmal atrial flutter, started on oral anticoagulant. 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 Polymicrobial pneumonia E. Coli, H. Flu, Klebsiella treated with Ceftriaxone 2GM IV. Carotid doppler ultrasound showed right ICA 60-79% stenosis, left ICA 40-59% stenosis. Acute kidney injury improved with medical management. 07/08/2018 Admit to TCU with debility, here for rehabilitation, strengthening, prior to discharge home with spouse. Past Medical History Past Medical History (Chronic Problems): Chronic Problems (Last Updated 04/20/18 @ 08:39 by Pearl Vickers) NSTEMI (non-ST elevated myocardial infarction) (Chronic) Coronary artery disease (Chronic) Dizziness (Chronic) Depression (Chronic) GERD (gastroesophageal reflux disease) (Chronic) Chronic kidney disease (Chronic) Hypertension (Chronic) Atherosclerotic heart disease of [place] coronary artery without angina pectoris (Chronic) Essential hypertension (Chronic) Chronic renal insufficiency (Chronic) Morbid obesity with BMI of 40.0-44.9, adult (Chronic) Osteoarthritis (Chronic) Hypothyroidism (Chronic) Gout (Chronic) CKD (chronic kidney disease) stage 3, GFR 30-59 ml/min (Chronic) Medical History: Medical History (Last Updated 04/20/18 @ 08:39 by Pearl Vickers) Essential hypertension (Chronic) I10 GI bleed (Acute) K92.2 NSTEMI (non-ST elevated myocardial infarction) (Acute) I21.4 Chronic renal insufficiency (Chronic) N18.9 Macrocytic anemia (Acute) D53.9 Morbid obesity with BMI of 40.0-44.9, adult (Chronic) E66.01, Z68.41 Osteoarthritis (Chronic) M19.90 Hypothyroidism (Chronic) E03.9 Gout (Chronic) M10.9 Hyperkalemia (Acute) E87.5 Sepsis (Acute) A41.9 CKD (chronic kidney disease) stage 3, GFR 30-59 ml/min (Chronic) N18.3 Cellulitis (Acute) L03.90 HTN (hypertension) (Inactive) I10 Allergies atorvastatin [From Lipitor] Adverse Reaction (Verified 05/10/18 09:52) MUSCLE PAIN Home Medications: Ambulatory Orders Medication Instructions Recorded Allopurinol [Zyloprim] 300 mg PO DAILY 03/28/18 Fluoxetine HCl 40 mg PO DAILY 03/28/18 Levothyroxine Sodium [Synthroid] 125 mcg PO DAILY 03/28/18 Acetaminophen [Tylenol] 650 mg PO Q6H PRN PRN 07/08/18 Albuterol Aerosols [Ventolin 2.5 mg INHALATION Q2H PRN PRN 07/08/18 Aerosols] Apixaban [Eliquis] 5 mg PO BID 07/08/18 Ascorbic Acid 500 mg PO BID 07/08/18 Aspirin E.C. [Ecotrin] 81 mg PO DAILY 07/08/18 Atorvastatin Calcium [Lipitor] 40 mg PO QHS 07/08/18 Bisacodyl 10 mg RC DAILY PRN 07/08/18 Colchicine 0.6 mg PO DAILY 07/08/18 Ferrous Sulfate 325 mg PO BID 07/08/18 Furosemide 40 mg PO DAILY 07/08/18 Gabapentin [Neurontin] 300 mg PO TID 07/08/18 Ipratropium/Albuterol Sulfate 3 ml IH 5X/DAY 07/08/18 [Iprat-Albut 0.5-3(2.5) mg/3 ml] Lactobacillus Acidophilus 1 tablet PO BID 07/08/18 [Acidophilus] Melatonin 3 mg PO QHS PRN 07/08/18 Metoprolol Tartrate [Lopressor 12.5 mg PO TID 07/08/18 (beta av)] Oxycodone HCl/Acetaminophen 1 each PO Q6H PRN 07/08/18 [Oxycodone-Acetaminophen 5-325] Pantoprazole Sodium [Protonix] 40 mg PO DAILY 07/08/18 Polyethylene Glycol 3350 [Miralax] 17 gm PO DAILY PRN 07/08/18 Senna/Docusate Sodium [Senokot-S, 1 tablet PO DAILY PRN 07/08/18 Kimi-Colace] Tamsulosin HCl 0.4 mg PO DAILY 07/08/18 Surgical History: Surgical History (Last Updated 04/20/18 @ 08:41 by Pearl Vickers) History of bilateral hip replacements Z96.643 S/P bilateral foot surgery Z98.890 Surgical History: coronary bypass surgery - x 2., total hip arthroplasty - Bilateral., - - bilateral foot surgeries. Psychiatric History: Depression Lives: Spouse/ Significant Other Smoking Status: Former smoker Tobacco Use: Non-smoker Alcohol: None Drugs: None - *Family History Maternal Family History: Family History (Last Updated 04/20/18 @ 08:41 by Pearl Vickers) Father Cancer History Items: No pertinent history Paternal Family History: Family History (Last Updated 04/20/18 @ 08:41 by Pearl Vickers) Father Cancer History Items: Cancer - Tobacco user, lung cancer diagnosis. Review of Systems Constitutional: Denies: Chills, Fever, Weight Change HEENT: Denies: Head Aches, Sinus Congestion, Sinus Drainage Cardiovascular: Denies: Chest Pain, Palpitations Respiratory: Denies: Cough, Shortness of breath at rest, Sputum production Gastrointestinal: Denies: Abdominal Pain, Nausea, Vomiting Genitourinary: Denies: Dysuria Musculoskeletal: Denies: Joint Pain, Joint Tenderness Skin: Denies: Rash, Wounds Neurological: Denies: Numbness, Tingling, Focal weakness Psychiatric: Denies: Anxiety, Depression, Homicidal Ideations, Suicidal Ideations Hematologic/ Lymphatic: Denies: Easy Bruising, Easy Bleeding VTE Information - Inpt Only VTE Present on Admission: No VTE Mechan Device Prophylaxis: Knee High KHARI Hose VTE Pharm Prophylaxis ordered?: No Reason prophylaxis not ordered:: Treatment Not Indicated Patient Problems: Active and Suspected Problems (Last Updated 04/20/18 @ 08:39 by Pearl Vickers) Healthcare associated bacterial pneumonia (Acute) Atrial flutter (Acute) Acute blood loss anemia (Acute) - Physical Exam General: Alert, Oriented x3, Cooperative HEENT: Atraumatic, PERRLA, EOMI, Normocephalic Neck: Supple, No JVD, Negative Carotid Bruits Lungs: Clear to auscultation, Normal air movement Cardiovascular: Regular rate, No murmurs Abdomen: Bowel Sounds Present, Soft, Non Tender Extremities: No edema, Capillary Refill Less than 3 Seconds Skin: No rashes, No breakdown Musculoskeletal: No Tenderness to Palpation of Joints or Extremities Neurological: Cranial nerves II-XII grossly intact Psych/Mental Status: Normal Affect, Appropriate Vital Signs Temp Pulse Resp BP Pulse Ox 99 F 95 18 115/74 93 07/08/18 18:14 07/08/18 18:14 07/08/18 18:14 07/08/18 18:14 07/08/18 18:14 Oxygen Flow Rate (L/min) 3 Oxygen Delivery Method Nasal Cannula Weight: 140.856 kg Body Mass Index (BMI) 38.5 Finger Stick Blood Glucose 119 Assessment/Plan All Active Problems (Last Updated 04/20/18 @ 08:39 by Pearl Vickers) Healthcare associated bacterial pneumonia (Acute) Atrial flutter (Acute) Acute blood loss anemia (Acute) Chest pain (Acute) GI bleed (Acute) NSTEMI (non-ST elevated myocardial infarction) (Acute) Macrocytic anemia (Acute) Hyperkalemia (Acute) Sepsis (Acute) Cellulitis (Acute) 82 year old male with below past medical history hospitalized at [facility], 06/23/2018, underwent CABG x 2, post-operative course complicated by polymicrobial pneumonia, anemia requiring transfusion, paroxysmal atrial flutter, acute kidney injury, admitted to TCU with debility, here for rehabilitation, strengthening, prior to discharge home with spouse. * Debility - PT/OT. * Pain - Tylenol 1000MG Q6H PRN mild pain, Oxycodone 5MG Q4H PRN moderate pain. * Bowel - Miralax 17GM daily, Senna/colace 2 tablets BID, Dulcolax 10MG [place] daily PRN. * Pneumonia vaccination - Administer Prevnar 13 and/or Pneumovax 23 as necessary. * DVT prophylaxis - not necessary, already on Eliquis. * COPD - Duoneb 3ML Q6HRT, Albuterol 2.5MG Q2H PRN. * Gout - Allopurinol 300MG daily, Colchicine 0.6MG daily. * Atrial Fibrillation - Metoprolol 12.5MG BID, Eliquis 5MG BID. * Vitamin C deficiency - Vitamin C 500MG BID. * Coronary artery disease status post CABG x 2 - Metoprolol 12.5MG BID, Aspirin 81MG daily. * Hyperlipidemia - Atorvastatin 40MG QHS. * Iron deficiency anemia - Ferrex 150MG twice daily. 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 * Fluid overload - Furosemide 40MG daily. * Neuropathic pain - Gabapentin 300MG TID. * GI prophylaxis - Lactobacillus 1 tablet BID. * Hypothyroidism - Levothyroxine 125MCG daily. * Insomnia - Melatonin 3MG QHS PRN. * GERD - Pantoprazole 40MG daily. * BPH/Urinary retention - Tamsulosin 0.4MG daily.
[2018-07-08 19:59] VITALS: BMI 45.8
[2018-07-08 20:10] VITALS: BMI 45.8
[2018-07-08 20:20] VITALS: BP 115/74; PULSE 95
[2018-07-08] MEDS: Metoprolol Tartrate 25 MG Tablet 12.5 MG PO (20:20)
[2018-07-08] MEDS: Atorvastatin Calcium 40 MG Tablet PO (20:20)
[2018-07-08] MEDS: oxyCODONE 5 MG Tablet PO (20:20)
[2018-07-08] MEDS: Gabapentin 300 MG Capsule PO (20:21)
[2018-07-08 20:28] VITALS: PULSE 89; RESP 20; O2SAT 94
[2018-07-08] MEDS: Ipratropium/Albuterol Sulfate 3 ML AMPUL.NEB INHALATION (20:28)
[2018-07-08 21:00] VITALS: O2SAT 95
[2018-07-09] VITALS (8 sets, daily range): BP systolic 90–101; BP diastolic 54–61; PULSE 82–90; RESP 18; TEMP 36.9; O2SAT 91–93
[2018-07-09] MEDS: Ipratropium/Albuterol Sulfate 3 ML AMPUL.NEB INHALATION ×3 (06:50→19:23)
[2018-07-09] MEDS: Levothyroxine 125 MCG Tablet PO (06:58)
[2018-07-09] MEDS: oxyCODONE 5 MG Tablet PO ×3 (07:00→17:37)
[2018-07-09 08:35] LABS: Hematocrit 28.9 % (40-54); Hemoglobin 8.3 g/dl (13.0-16.5); Mean Corp Hgb Conc 28.7 g/gl (32-36); Mean Corpuscular Hgb 28.4 pg (27.0-32.0); Mean Platelet Vol. 9.2 fl (6.2-12.0); Platelet Count 210 K/mm3 (150-450); RBC Distribution Width CV 18.1 % (11.6-14.6); RBC Distribution Width SD 58.7 fl (35.1-43.9); Red Blood Count 2.92 M/mm3 (4.6-6.2); White Blood Count 7.7 K/mm3 (4.4-11.0)
[2018-07-09 08:41] LABS: Differential Indicated MANUAL DIFF; POSITIVE COUNT YES; POSITIVE DIFFERENTIAL NO; POSITIVE MORPHOLOGY YES
[2018-07-09 08:51] LABS: Anion Gap 9 (5-15); BUN 39 mg/dL (7-18); BUN/Creat Ratio 24.8 RATIO (10-20); Calcium,Total 8.6 mg/dL (8.5-10.1); Chloride 104 mmol/L (98-107); Creatinine, Serum 1.57 mg/dL (0.70-1.30); EST Glomerular Filtration Rate 45 mL/min (>60); Est Glom Filt Rate - Afr Amer 55 mL/min (>60); Glucose 135 mg/dL (74-106); Potassium 4.3 mmol/L (3.5-5.1); Sodium Level 140 mmol/L (136-145)
[2018-07-09] MEDS: Aspirin E.C. 81 MG Tablet PO (09:08)
[2018-07-09] MEDS: Gabapentin 300 MG Capsule PO ×3 (09:08→17:34)
[2018-07-09] MEDS: Allopurinol 300 MG Tablet PO (09:08)
[2018-07-09] MEDS: APIXABAN 5 MG TABLET PO ×2 (09:09→21:30)
[2018-07-09 09:10] LABS: Anisocytosis 1+; Hypochromasia 2+; Lymphocyte 10 % (19-41); Metamyelocyte 6 % (0-1); Monocyte 3 % (0-10); Myelocyte 1 (0-0); Neutrophil-Segmented 80 % (47-70); Platelet Estimate ADEQUATE (ADEQ); Total Cells Counted 100 (MANUAL DIFF)
[2018-07-09] MEDS: Iron Polysaccharide Complex 150 MG CAPSULE PO ×2 (09:10→17:34)
[2018-07-09] MEDS: Furosemide 40 MG Tablet PO (09:10)
[2018-07-09] MEDS: FLUoxetine 20 MG Capsule 40 MG PO (09:11)
[2018-07-09] MEDS: Ascorbic Acid 500 MG Tablet PO ×2 (09:11→17:34)
[2018-07-09] MEDS: Pantoprazole Sodium 40 MG Tablet PO (09:11)
[2018-07-09] MEDS: Senna/Docusate Sodium 1 Tablet 2 TABLET PO (09:12)
[2018-07-09] MEDS: Metoprolol Tartrate 25 MG Tablet 12.5 MG PO ×2 (09:14→13:40)
[2018-07-09] MEDS: Tuberculin,Purif.prot.deriv. 50 TU/ML Vial 5 ML ID (12:21)
[2018-07-09] MEDS: Acetaminophen 500 MG Tablet 1000 MG PO (14:48)
[2018-07-09] MEDS: Tamsulosin HCl 0.4 MG Capsule PO (17:34)
[2018-07-09] MEDS: Atorvastatin Calcium 40 MG Tablet PO (21:30)
--- NOTE | 2018-07-09 21:54 | NURSING ---
Pt BP 93/[address] West, hold Lopressor dose this evening.
[2018-07-10] VITALS (8 sets, daily range): BP systolic 100–122; BP diastolic 53–68; PULSE 70–90; RESP 16–20; TEMP 36.6; O2SAT 90–92
[2018-07-10] MEDS: Levothyroxine 125 MCG Tablet PO (06:21)
[2018-07-10] MEDS: oxyCODONE 5 MG Tablet PO ×3 (06:25→20:01)
[2018-07-10] MEDS: Ipratropium/Albuterol Sulfate 3 ML AMPUL.NEB INHALATION ×3 (07:15→19:53)
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
[2018-07-10] MEDS: Gabapentin 300 MG Capsule PO ×3 (09:05→16:42)
[2018-07-10] MEDS: Aspirin E.C. 81 MG Tablet PO (09:07)
[2018-07-10] MEDS: Iron Polysaccharide Complex 150 MG CAPSULE PO ×2 (09:08→16:42)
[2018-07-10] MEDS: APIXABAN 5 MG TABLET PO ×2 (09:08→20:51)
[2018-07-10] MEDS: Furosemide 40 MG Tablet PO (09:08)
[2018-07-10] MEDS: Pantoprazole Sodium 40 MG Tablet PO (09:09)
[2018-07-10] MEDS: FLUoxetine 20 MG Capsule 40 MG PO (09:09)
[2018-07-10] MEDS: Ascorbic Acid 500 MG Tablet PO ×2 (09:10→16:42)
[2018-07-10] MEDS: Allopurinol 300 MG Tablet PO (09:10)
[2018-07-10] MEDS: Metoprolol Tartrate 25 MG Tablet 12.5 MG PO ×3 (09:11→20:50)
[2018-07-10 12:15] LABS: Pathologist Review Reviewed
--- NOTE | 2018-07-10 14:04 | NURSING ---
pt's voiced concerns that pt may not be doing IS and pickle enough, please monitor and encourage
[2018-07-10] MEDS: Tamsulosin HCl 0.4 MG Capsule PO (16:42)
[2018-07-10] MEDS: Atorvastatin Calcium 40 MG Tablet PO (20:50)
[2018-07-11] VITALS (14 sets, daily range): BP systolic 89–106; BP diastolic 47–53; PULSE 84–89; RESP 16–20; TEMP 36.9–37.1; O2SAT 87–92
[2018-07-11] MEDS: Levothyroxine 125 MCG Tablet PO (05:31)
[2018-07-11] MEDS: Ipratropium/Albuterol Sulfate 3 ML AMPUL.NEB INHALATION ×3 (05:55→18:26)
[2018-07-11] MEDS: FLUoxetine 20 MG Capsule 40 MG PO (07:57)
[2018-07-11] MEDS: Senna/Docusate Sodium 1 Tablet 2 TABLET PO (07:57)
[2018-07-11] MEDS: Allopurinol 300 MG Tablet PO (07:57)
[2018-07-11] MEDS: Ascorbic Acid 500 MG Tablet PO ×2 (07:57→17:09)
[2018-07-11] MEDS: Iron Polysaccharide Complex 150 MG CAPSULE PO ×2 (07:58→17:09)
[2018-07-11] MEDS: Gabapentin 300 MG Capsule PO ×3 (07:58→17:09)
[2018-07-11] MEDS: APIXABAN 5 MG TABLET PO ×2 (07:58→21:22)
[2018-07-11] MEDS: Aspirin E.C. 81 MG Tablet PO (07:58)
[2018-07-11] MEDS: Pantoprazole Sodium 40 MG Tablet PO (07:58)
[2018-07-11] MEDS: Furosemide 40 MG Tablet PO (07:58)
[2018-07-11] MEDS: Metoprolol Tartrate 25 MG Tablet 12.5 MG PO (07:59)
[2018-07-11] MEDS: oxyCODONE 5 MG Tablet PO ×2 (09:11→21:21)
--- NOTE | 2018-07-11 14:29 | NURSING ---
Pt hypotensive 89/47 HR 89. asymptomatic, up moving around wiht therapy. Dr West notified, new order to hold lopressor at this time.
--- NOTE | 2018-07-11 14:31 | NURSING ---
1400 LOPRESSOR HELD DUE TO LOW BP,PER .
--- NOTE | 2018-07-11 15:03 | CHAPLAIN ---
Type of Pastoral Visit _x__ Initial Visit ___ Follow-up Visit ___ On-call Visit ___ General Patient Visit ___ Spiritual Assessment ___ Family Conference ___ Bereavement ___ Rapid Response ___ Code Blue ___ Other (describe below) Pastoral Care Referral From _x__ Patient ___ Family ___ Nurse ___ Physician ___ Station Mechanic Apprentice ___ Broker Associate ___ Other (describe below) Sacrament/Intervention _x__ Active listening ___ Anointing ___ Adventism ___ Bereavement ___ Communion ___ Cristin exploration ___ ___ Life review ___ Prayer ___ Reconciliation ___ Sacrament of Sick ___ Supportive presence ___ Wedding ___ Other (describe below) Pastoral Comments patient was sleeping but had a conversation with spouse; offered future spiritual care as desired
[2018-07-11] MEDS: Albuterol 2.5 MG/3 ML VIAL.NEB. INHALATION ×2 (15:54→22:55)
[2018-07-11] MEDS: Tamsulosin HCl 0.4 MG Capsule PO (17:09)
--- NOTE | 2018-07-11 20:19 | RAD_ITS ---
STUDY: X-RAY - ABDOMEN/PELVIS REASON FOR EXAM: Male, 82 years old. Abdominal pain. TECHNIQUE: Two AP supine views of the abdomen and pelvis. COMPARISON: None. FINDINGS: The lung bases are not included. There is an unremarkable bowel gas pattern. There are mildly distended loops of colon enteric air and feces. There is air in nondilated small bowel loops. There is no demonstrated free abdominal air. The visualized liver, spleen and kidneys are grossly normal in size and morphology. Vascular calcifications in the pelvis. There are diffuse degenerative changes of the visualized lumbar spine. There are bilateral artificial hips. RAD/Abdomen Single View IMPRESSION: Nonspecific bowel gas pattern. Electronically Signed: Samir Baldwin DO at 21:20 EST Tel [phone], Service support ,
--- NOTE | 2018-07-11 20:19 | RAD_ITS ---
STUDY: X-RAY CHEST REASON FOR EXAM: Male, 82 years old. Shortness of breath. Dyspnea. TECHNIQUE: PA and lateral views of the chest. COMPARISON: March 28, 2018. FINDINGS: The lungs are hypoexpanded. There is bibasilar atelectasis. There is no demonstrated pleural abnormality. Sternal cerclage wires are present from a prior sternotomy. Heart appears mildly enlarged. Normal mediastinum and joey. Normal visualized pulmonary arteries. There is atherosclerotic calcification of the aortic arch with tortuosity. There are diffuse degenerative changes of the visualized thoracic spine. There is degenerative osteoarthritis of the bilateral shoulders. There is no demonstrated abnormality of the visualized soft tissue structures of the upper abdomen. RAD/Chest PA and Lateral IMPRESSION: 1. Limited inspiration with bibasilar atelectasis. 2. Cardiomegaly with evidence of median sternotomy. Electronically Signed: Samir Baldwin DO at 21:21 EST Tel [phone], Service support ,
--- NOTE | 2018-07-11 20:23 | NURSING ---
Addendum entered by Mary Forman 07/12/18 07:03: called back, notified of patient's new orders. Original Note: Addendum entered by Mary Forman 07/12/18 06:52: Left voice mail to infusion center about patient getting 2 units of blood. Original Note: Addendum entered by Mary Forman 07/12/18 06:51: Message left for Patient's Clarissa to have her call back. Original Note: Addendum entered by Mary Forman 07/11/18 23:51: Dr. West aware of KUB, Chest xray, and blood work results. See new orders entered by Dr. West. Original Note: This Nurse in to assess patient. Patient noted to have Rhonchi through lung bases. Patient unable to cough up secretions. Patient was previously on 3 liter of O2 and has had to be bumped up to 4.5 liters due to patient's O2 stating in the low 80s. Patient currently at 92 on 4.5 Liters of O2. Patient BP 104/53 P 88 and regular R 20 O2 92 on 4.5 L, T 98.[address] West notified of this. New orders given. Patient aware of new orders.
[2018-07-11] MEDS: Atorvastatin Calcium 40 MG Tablet PO (21:22)
[2018-07-11 21:28] LABS: Absolute Lymphocyte Count 1.07 X10^3/ul (0.83-4.51); Absolute Neutrophil Count 4.9 X10^3/uL (2.0-7.7); Basophil# 0.02 X10^3/uL; Basophil% 0.3 % (0-1); Eosinophil# 0.22 X10^3/uL; Eosinophils% 3.2 % (0-5); Hematocrit 26.1 % (40-54); Hemoglobin 7.5 g/dl (13.0-16.5); Lymphocyte # 1.07 X10^3/ul (4.0); Lymphocyte % 15.8 % (19-41); Mean Corp Hgb Conc 28.7 g/gl (32-36); Mean Corpuscular Hgb 27.8 pg (27.0-32.0); Mean Corpuscular Volume 96.7 fL (80-94); Monocyte# 0.38 X10^3/uL; Monocyte% 5.6 % (0-10); Neutrophil # 4.92 X10^3/uL (2.7-7.7); Neutrophil % 72.4 % (47-70); Platelet Count 150 K/mm3 (150-450); RBC Distribution Width CV 18.3 % (11.6-14.6); RBC Distribution Width SD 62.1 fl (35.1-43.9); White Blood Count 6.8 K/mm3 (4.4-11.0)
[2018-07-11 21:29] LABS: Differential Indicated SCAN CRITERIA MET; POSITIVE COUNT YES; POSITIVE DIFFERENTIAL NO; POSITIVE MORPHOLOGY YES
[2018-07-11 21:36] LABS: Anion Gap 6 (5-15); BUN 42 mg/dL (7-18); Calcium,Total 8.2 mg/dL (8.5-10.1); Chloride 103 mmol/L (98-107); Creatinine, Serum 1.75 mg/dL (0.70-1.30); EST Glomerular Filtration Rate 40 mL/min (>60); Est Glom Filt Rate - Afr Amer 48 mL/min (>60); Estimated Creatinine Clearance 33.11 ml/min; Glucose 132 mg/dL (74-106); Potassium 4.1 mmol/L (3.5-5.1); Sodium Level 137 mmol/L (136-145)
[2018-07-11 21:47] LABS: BNP,B-Type NATRIURETIC PEPTIDE 275.8 pg/mL (0-100)
[2018-07-11 21:49] LABS: Anisocytosis RARE; Hypochromasia RARE; Macrocytosis RARE; Ovalocyte RARE; Target Cells RARE
[2018-07-11] MEDS: Furosemide 100 MG/10 ML Vial 80 MG IV (21:51)
[2018-07-11] MEDS: MethylPREDNISolone 125 MG/2 ML Vial IV (21:52)
[2018-07-11] MEDS: 0.9% NaCl Peripheral Flush Adult/Peds IV (22:03)
[2018-07-11] MEDS: 0.9% NaCl IVPB Med Flush (250 mL) 15 ML IV (22:03)
[2018-07-11 22:35] LABS: Bacteria 0 SEEN /hpf (None Seen); Mucous, Urine 0 SEEN /hpf (<or=2+); Red Blood Cells-Urine 0 SEEN /hpf (0-5); Squamous Epithelial Cells - UA 0 SEEN /hpf (0-5); White Blood Cells 0 SEEN /hpf (0-5)
[2018-07-11] MEDS: Electrolyte Solution/Peg's 4000 ML 1000 ML PO (22:45)
--- NOTE | 2018-07-11 23:15 | CPS ---
Addendum entered by Shirley Drew 07/11/18 23:21: vest not started on pt due to CABG incision and protective vest that he's wearing. Original Note: pt brought pep from home
[2018-07-11 23:23] LABS: Color, Urine Yellow (Yellow); Glucose, Dipstick Normal (Normal); Ketone-Dipstick Negative (Negative); Leukocyte Esterase-Dipstick Negative /ul (Negative); Nitrite-Dipstick Negative (Negative); Occult Blood-Urine Negative /ul (Negative); Protein-Dipstick Negative (Negative); Urine Bilirubin Dipstick Negative (Negative); Urine Clarity Clear (Clear); Urine Urobilinogen Normal (Normal)
[2018-07-11] MEDS: 0.9% Normal Saline 1,000 ML 999 ML IV (23:31)
[2018-07-12] VITALS (7 sets, daily range): BP systolic 105–121; BP diastolic 43–68; PULSE 71–89; RESP 18–20; TEMP 36.8–37.3; O2SAT 92–99
[2018-07-12 01:45] LABS: Bedside Glucose 167 mg/dL (70-110)
[2018-07-12] MEDS: Furosemide 40 MG Tablet PO (04:46)
[2018-07-12] MEDS: Levothyroxine 125 MCG Tablet PO (04:47)
[2018-07-12] MEDS: Metoprolol Tartrate 25 MG Tablet 6.25 MG PO ×2 (04:47→17:48)
[2018-07-12] MEDS: 0.9% NaCl Peripheral Flush Adult/Peds IV ×5 (04:53→19:59)
[2018-07-12 06:27] LABS: Anion Gap 10 (5-15); BUN 43 mg/dL (7-18); BUN/Creat Ratio 26.5 RATIO (10-20); Calcium,Total 8.5 mg/dL (8.5-10.1); Chloride 102 mmol/L (98-107); Creatinine, Serum 1.62 mg/dL (0.70-1.30); EST Glomerular Filtration Rate 44 mL/min (>60); Est Glom Filt Rate - Afr Amer 53 mL/min (>60); Estimated Creatinine Clearance 35.76 ml/min; Glucose 186 mg/dL (74-106); Potassium 4.1 mmol/L (3.5-5.1); Sodium Level 141 mmol/L (136-145)
[2018-07-12] MEDS: Ipratropium/Albuterol Sulfate 3 ML AMPUL.NEB INHALATION ×2 (06:30→19:50)
--- NOTE | 2018-07-12 08:21 | PCM.TCUNOT ---
Subjective: Resident hypotensive yesterday, increasing oxygen requirement, did not feel well. Vitals/I&O's: Vital Signs Temp Pulse Resp BP Pulse Ox 98.8 F 89 20 H 121/68 H 92 07/12/18 04:57 07/12/18 06:30 07/12/18 06:30 07/12/18 04:47 07/12/18 06:30 Oxygen Flow Rate (L/min) 4.5 Oxygen Delivery Method Nasal Cannula Weight: 142.145 kg Body Mass Index (BMI) 45.8 Finger Stick Blood Glucose 119 Intake and Output for Last 24 Hours 07/10/18 07/11/18 07/12/18 23:59 23:59 23:59 Intake Total 1080 / 1080 2790 / 2790 1600 / 1600 Output Total 350 / 350 2500 / 2500 2300 / 2300 Balance 730 / 730 290 / 290 -700 / -700 Microbiology Past 72 Hours 07/11/18 21:22 Mucosa - Nasopharyngeal Respiratory Panel (PCR) - Final Laboratory Results 07/11/18 21:18: WBC 6.8, RBC 2.70 L, Hgb 7.5 L, Hct 26.1 L, MCV 96.7 H, MCH 27.8, MCHC 28.7 L, RDW 18.3 H, RDW Differential 62.1 H, Plt Count 150, MPV 9.0, Immature Gran % (Auto) 2.700 H, Neut % (Auto) 72.4 H, Lymph % (Auto) 15.8 L, [place] % (Auto) 5.6, Eos % (Auto) 3.2, Baso % (Auto) 0.3, Absolute Neuts (auto) 4.9, Absolute Lymphs (auto) 1.07, Total Counted Not Reportable, Diff Path Review May foll, Hypochromasia RARE, Anisocytosis RARE, Macrocytosis RARE, Target Cells RARE, Ovalocytes RARE 07/11/18 21:18: Sodium 137, Potassium 4.1, Chloride 103, Carbon Dioxide 28.0, Anion Gap 6, BUN 42 H, Creatinine 1.75 H, Estim Creat Clear Calc 33.11, Est GFR (MDRD) Af Amer 48 L, Est GFR (MDRD) Non-Af 40 L, BUN/Creatinine Ratio 24.0 H, Glucose 132 H, Calcium 8.2 L 07/11/18 21:18: B-Natriuretic Peptide 275.8 H 07/11/18 22:20: Urine Color Yellow, Urine Clarity Clear, Urine pH 6.0, Ur Specific [place] 1.010, Urine Protein Negative, Urine Glucose (UA) Normal, Urine Ketones Negative, Urine Occult Blood Negative, Urine Nitrite Negative, Urine Bilirubin Negative, Urine Urobilinogen Normal, Ur Leukocyte Esterase Negative, Urine RBC 0 SEEN, Urine WBC 0 SEEN, Ur Squamous Epith Cells 0 SEEN, Urine Bacteria 0 SEEN, Urine Mucus 0 SEEN 07/12/18 01:42: POC Glucose 167 H 07/12/18 05:10: Sodium 141, Potassium 4.1, Chloride 102, Carbon Dioxide 29.0, Anion Gap 10, BUN 43 H, Creatinine 1.62 H, Estim Creat Clear Calc 35.76, Est GFR (MDRD) Af Amer 53 L, Est GFR (MDRD) Non-Af 44 L, BUN/Creatinine Ratio 26.5 H, Glucose 186 H, Calcium 8.5 07/12/18 05:10: Hgb Pending, Hct Pending 07/12/18 06:40: Blood Type Pending, Antibody Screen Pending, Crossmatch See Detail Past Medical History Past Medical History (Chronic Problems): Chronic Problems (Last Updated 04/20/18 @ 08:39 by Pearl Vickers) NSTEMI (non-ST elevated myocardial infarction) (Chronic) Coronary artery disease (Chronic) Dizziness (Chronic) Depression (Chronic) GERD (gastroesophageal reflux disease) (Chronic) Chronic kidney disease (Chronic) Hypertension (Chronic) Atherosclerotic heart disease of [place] coronary artery without angina pectoris (Chronic) Essential hypertension (Chronic) Chronic renal insufficiency (Chronic) Morbid obesity with BMI of 40.0-44.9, adult (Chronic) Osteoarthritis (Chronic) Hypothyroidism (Chronic) Gout (Chronic) CKD (chronic kidney disease) stage 3, GFR 30-59 ml/min (Chronic) Medical History: Medical History (Last Updated 04/20/18 @ 08:39 by Pearl Vickers) Essential hypertension (Chronic) I10 GI bleed (Acute) K92.2 NSTEMI (non-ST elevated myocardial infarction) (Acute) I21.4 Chronic renal insufficiency (Chronic) N18.9 Macrocytic anemia (Acute) D53.9 Morbid obesity with BMI of 40.0-44.9, adult (Chronic) E66.01, Z68.41 Osteoarthritis (Chronic) M19.90 Hypothyroidism (Chronic) E03.9 Gout (Chronic) M10.9 Hyperkalemia (Acute) E87.5 Sepsis (Acute) A41.9 CKD (chronic kidney disease) stage 3, GFR 30-59 ml/min (Chronic) N18.3 Cellulitis (Acute) L03.90 HTN (hypertension) (Inactive) I10 Allergies atorvastatin [From Lipitor] Adverse Reaction (Verified 05/10/18 09:52) MUSCLE PAIN Home Medications: Ambulatory Orders Medication Instructions Recorded Allopurinol [Zyloprim] 300 mg PO DAILY 03/28/18 Fluoxetine HCl 40 mg PO DAILY 03/28/18 Levothyroxine Sodium [Synthroid] 125 mcg PO DAILY 03/28/18 Acetaminophen [Tylenol] 650 mg PO Q6H PRN PRN 07/08/18 Albuterol Aerosols [Ventolin 2.5 mg INHALATION Q2H PRN PRN 07/08/18 Aerosols] Apixaban [Eliquis] 5 mg PO BID 07/08/18 Ascorbic Acid 500 mg PO BID 07/08/18 Aspirin E.C. [Ecotrin] 81 mg PO DAILY 07/08/18 Atorvastatin Calcium [Lipitor] 40 mg PO QHS 07/08/18 Bisacodyl 10 mg RC DAILY PRN 07/08/18 Colchicine 0.6 mg PO DAILY 07/08/18 Ferrous Sulfate 325 mg PO BID 07/08/18 Furosemide 40 mg PO DAILY 07/08/18 Gabapentin [Neurontin] 300 mg PO TID 07/08/18 Ipratropium/Albuterol Sulfate 3 ml IH 5X/DAY 07/08/18 [Iprat-Albut 0.5-3(2.5) mg/3 ml] Lactobacillus Acidophilus 1 tablet PO BID 07/08/18 [Acidophilus] Melatonin 3 mg PO QHS PRN 07/08/18 Metoprolol Tartrate [Lopressor 12.5 mg PO TID 07/08/18 (beta av)] Oxycodone HCl/Acetaminophen 1 each PO Q6H PRN 07/08/18 [Oxycodone-Acetaminophen 5-325] Pantoprazole Sodium [Protonix] 40 mg PO DAILY 07/08/18 Polyethylene Glycol 3350 [Miralax] 17 gm PO DAILY PRN 07/08/18 Senna/Docusate Sodium [Senokot-S, 1 tablet PO DAILY PRN 07/08/18 Kimi-Colace] Tamsulosin HCl 0.4 mg PO DAILY 07/08/18 Surgical History: Surgical History (Last Updated 04/20/18 @ 08:41 by Pearl Vickers) History of bilateral hip replacements Z96.643 S/P bilateral foot surgery Z98.890 Surgical History: coronary bypass surgery - x 2., total hip arthroplasty - Bilateral., - - bilateral foot surgeries. Psychiatric History: Depression Lives: Spouse/ Significant Other Smoking Status: Former smoker Tobacco Use: Non-smoker Alcohol: None Drugs: None - *Family History Maternal Family History: Family History (Last Updated 04/20/18 @ 08:41 by Pearl Vickers) Father Cancer History Items: No pertinent history Paternal Family History: Family History (Last Updated 04/20/18 @ 08:41 by Pearl Vickers) Father Cancer History Items: Cancer - Tobacco user, lung cancer diagnosis. Capacity - Capacity Assessment Tool Can the patient make a choice & communicate that choice?: Yes Can the patient understand benefits, risks and alternatives?: Yes Can the patient make a logical, rational choice?: Yes Is the choice the patient makes consistent w/ their values?: Yes Is there an impending, emergent risk to the patient?: Yes Does the patient have an Advance Directive?: No Is there a Surrogate Available?: No i.e. HCPOA: No i.e. close relative (spouse, child, parent, sibling)?: No Review of Systems Constitutional: Denies: Chills, Fever, Weight Change HEENT: Denies: Head Aches, Sinus Congestion, Sinus Drainage Cardiovascular: Denies: Chest Pain, Palpitations Respiratory: Denies: Cough, Shortness of breath at rest, Sputum production Gastrointestinal: Denies: Abdominal Pain, Nausea, Vomiting Genitourinary: Denies: Dysuria Musculoskeletal: Denies: Joint Pain, Joint Tenderness Skin: Denies: Rash, Wounds Neurological: Denies: Numbness, Tingling, Focal weakness Psychiatric: Denies: Anxiety, Depression, Homicidal Ideations, Suicidal Ideations Hematologic/ Lymphatic: Denies: Easy Bruising, Easy Bleeding Patient Problems: Active and Suspected Problems (Last Updated 04/20/18 @ 08:39 by Pearl Vickers) Healthcare associated bacterial pneumonia (Acute) Atrial flutter (Acute) Acute blood loss anemia (Acute) - Physical Exam General: Alert, Oriented x3, Cooperative HEENT: Atraumatic, PERRLA, EOMI, Normocephalic Neck: Supple, No JVD, Negative Carotid Bruits Lungs: Rhonchi - Diffuse. Cardiovascular: Regular rate, No murmurs Abdomen: Bowel Sounds Present, Soft, Non Tender Extremities: No edema, Capillary Refill Less than 3 Seconds Skin: No rashes, No breakdown Musculoskeletal: No Tenderness to Palpation of Joints or Extremities Neurological: Cranial nerves II-XII grossly intact Psych/Mental Status: Normal Affect, Appropriate Vital Signs Temp Pulse Resp BP Pulse Ox 98.8 F 89 20 H 121/68 H 92 07/12/18 04:57 07/12/18 06:30 07/12/18 06:30 07/12/18 04:47 07/12/18 06:30 Oxygen Flow Rate (L/min) 4.5 Oxygen Delivery Method Nasal Cannula Weight: 142.145 kg Body Mass Index (BMI) 45.8 Finger Stick Blood Glucose 119 Intake and Output for Last 24 Hours 07/10/18 07/11/18 07/12/18 23:59 23:59 23:59 Intake Total 1080 / 1080 2790 / 2790 1600 / 1600 Output Total 350 / 350 2500 / 2500 2300 / 2300 Balance 730 / 730 290 / 290 -700 / -700 Microbiology Past 72 Hours 07/11/18 21:22 Respiratory Panel (PCR) - Final Mucosa - Nasopharyngeal Laboratory Tests Past 24 Hrs 07/11/18 07/11/18 07/11/18 21:18 21:18 21:18 WBC 6.8 RBC 2.70 L Hgb 7.5 L Hct 26.1 L MCV 96.7 H MCH 27.8 MCHC 28.7 L RDW 18.3 H RDW Differential 62.1 H Plt Count 150 MPV 9.0 Immature Gran % (Auto) 2.700 H Neut % (Auto) 72.4 H Lymph % (Auto) 15.8 L [place] % (Auto) 5.6 Eos % (Auto) 3.2 Baso % (Auto) 0.3 Absolute Neuts (auto) 4.9 Absolute Lymphs (auto) 1.07 Total Counted Not Reportable Diff Path Review May foll Hypochromasia RARE Anisocytosis RARE Macrocytosis RARE Target Cells RARE Ovalocytes RARE Sodium 137 Potassium 4.1 Chloride 103 Carbon Dioxide 28.0 Anion Gap 6 BUN 42 H Creatinine 1.75 H Estim Creat Clear Calc 33.11 Est GFR (MDRD) Af Amer 48 L Est GFR (MDRD) Non-Af 40 L BUN/Creatinine Ratio 24.0 H Glucose 132 H Calcium 8.2 L B-Natriuretic Peptide 275.8 H Urine Color Urine Clarity Urine pH Ur Specific [place] Urine Protein Urine Glucose (UA) Urine Ketones Urine Occult Blood Urine Nitrite Urine Bilirubin Urine Urobilinogen Ur Leukocyte Esterase Urine RBC Urine WBC Ur Squamous Epith Cells Urine Bacteria Urine Mucus Blood Type Antibody Screen Crossmatch 07/11/18 07/12/18 07/12/18 22:20 05:10 05:10 WBC RBC Hgb Pending Hct Pending MCV MCH MCHC RDW RDW Differential Plt Count MPV Immature Gran % (Auto) Neut % (Auto) Lymph % (Auto) [place] % (Auto) Eos % (Auto) Baso % (Auto) Absolute Neuts (auto) Absolute Lymphs (auto) Total Counted Diff Path Review Hypochromasia Anisocytosis Macrocytosis Target Cells Ovalocytes Sodium 141 Potassium 4.1 Chloride 102 Carbon Dioxide 29.0 Anion Gap 10 BUN 43 H Creatinine 1.62 H Estim Creat Clear Calc 35.76 Est GFR (MDRD) Af Amer 53 L Est GFR (MDRD) Non-Af 44 L BUN/Creatinine Ratio 26.5 H Glucose 186 H Calcium 8.5 B-Natriuretic Peptide Urine Color Yellow Urine Clarity Clear Urine pH 6.0 Ur Specific [place] 1.010 Urine Protein Negative Urine Glucose (UA) Normal Urine Ketones Negative Urine Occult Blood Negative Urine Nitrite Negative Urine Bilirubin Negative Urine Urobilinogen Normal Ur Leukocyte Esterase Negative Urine RBC 0 SEEN Urine WBC 0 SEEN Ur Squamous Epith Cells 0 SEEN Urine Bacteria 0 SEEN Urine Mucus 0 SEEN Blood Type Antibody Screen Crossmatch 07/12/18 06:40 WBC RBC Hgb Hct MCV MCH MCHC RDW RDW Differential Plt Count MPV Immature Gran % (Auto) Neut % (Auto) Lymph % (Auto) [place] % (Auto) Eos % (Auto) Baso % (Auto) Absolute Neuts (auto) Absolute Lymphs (auto) Total Counted Diff Path Review Hypochromasia Anisocytosis Macrocytosis Target Cells Ovalocytes Sodium Potassium Chloride Carbon Dioxide Anion Gap BUN Creatinine Estim Creat Clear Calc Est GFR (MDRD) Af Amer Est GFR (MDRD) Non-Af BUN/Creatinine Ratio Glucose Calcium B-Natriuretic Peptide Urine Color Urine Clarity Urine pH Ur Specific [place] Urine Protein Urine Glucose (UA) Urine Ketones Urine Occult Blood Urine Nitrite Urine Bilirubin Urine Urobilinogen Ur Leukocyte Esterase Urine RBC Urine WBC Ur Squamous Epith Cells Urine Bacteria Urine Mucus Blood Type Pending Antibody Screen Pending Crossmatch See Detail POC Glucose 07/12/18 01:42 POC Glucose 167 H Assessment/Plan All Active Problems (Last Updated 04/20/18 @ 08:39 by Pearl Vickers) Healthcare associated bacterial pneumonia (Acute) Atrial flutter (Acute) Acute blood loss anemia (Acute) Chest pain (Acute) GI bleed (Acute) NSTEMI (non-ST elevated myocardial infarction) (Acute) Macrocytic anemia (Acute) Hyperkalemia (Acute) Sepsis (Acute) Cellulitis (Acute) 82 year old male with below past medical history hospitalized at [facility], 06/23/2018, underwent CABG x 2, post-operative course complicated by polymicrobial pneumonia, anemia requiring transfusion, paroxysmal atrial flutter, acute kidney injury, admitted to TCU with debility, here for rehabilitation, strengthening, prior to discharge home with spouse. Fecal impaction of colon - Miralax 17GM daily, Senna/colace 2 tablets BID, Dulcolax 10MG NC daily PRN, residual stool on KUB, Golytely 1 liter PO x 1 dose, good results this AM. COPD - Duoneb 3ML Q6HRT, Albuterol 2.5MG Q2H PRN, Solu-Medrol 125MG IV x 1 dose. Gout - Allopurinol 300MG daily, Stop Colchicine 0.6MG daily, can irritate stomach. Atrial Fibrillation - Decrease Metoprolol 6.25MG BID, Eliquis 5MG BID held, restart Eliquis 2.5MG BID 07/17/2018. Vitamin C deficiency - Stop Vitamin C 500MG BID, will acidify stomach more. Coronary artery disease status post CABG x 2 - Metoprolol 6.25MG BID, Aspirin 81MG daily. Hyperlipidemia - Atorvastatin 40MG QHS. Iron deficiency anemia - Ferrex 150MG twice daily, Hemoglobin dropped from 8.3 to 7.5, Transfuse 2 units PRBC per protocol, Lasix 40MG IV between units. Hypotension - NS 1 liter IV bolus, blood pressure improved. Depression - Fluoxetine 40MG daily, resident doing well with chronic prison use, GDR clinically contraindicated. Fluid overload - Furosemide 40MG daily. GERD - Pantoprazole 80MG IV push, then Pantoprazole 40MG IV twice daily, history of GI bleed, check stool guaiac, if positive, consider EGD/colonoscopy as outpatient, recent CABG, high risk for further procedures. BPH/Urinary retention - Tamsulosin 0.4MG daily. Hospital Acquired pneumonia - Chest X-ray showed bibasilar atelectasis, Cefepime 2GM IV Q8H x 7 days.
--- NOTE | 2018-07-12 08:27 | PN_ITS ---
Subjective: Resident hypotensive yesterday, increasing oxygen requirement, did not feel well. Vitals/I&O's: Vital Signs Temp Pulse Resp BP Pulse Ox 98.8 F 89 20 H 121/68 H 92 07/12/18 04:57 07/12/18 06:30 07/12/18 06:30 07/12/18 04:47 07/12/18 06:30 Oxygen Flow Rate (L/min) 4.5 Oxygen Delivery Method Nasal Cannula Weight: 142.145 kg Body Mass Index (BMI) 45.8 Finger Stick Blood Glucose 119 Intake and Output for Last 24 Hours 07/10/18 07/11/18 07/12/18 23:59 23:59 23:59 Intake Total 1080 / 1080 2790 / 2790 1600 / 1600 Output Total 350 / 350 2500 / 2500 2300 / 2300 Balance 730 / 730 290 / 290 -700 / -700 Microbiology Past 72 Hours 07/11/18 21:22 Mucosa - Nasopharyngeal Respiratory Panel (PCR) - Final Laboratory Results 07/11/18 21:18: WBC 6.8, RBC 2.70 L, Hgb 7.5 L, Hct 26.1 L, MCV 96.7 H, MCH 27.8, MCHC 28.7 L, RDW 18.3 H, RDW Differential 62.1 H, Plt Count 150, MPV 9.0, Immature Gran % (Auto) 2.700 H, Neut % (Auto) 72.4 H, Lymph % (Auto) 15.8 L, [place] % (Auto) 5.6, Eos % (Auto) 3.2, Baso % (Auto) 0.3, Absolute Neuts (auto) 4.9, Absolute Lymphs (auto) 1.07, Total Counted Not Reportable, Diff Path Review May foll, Hypochromasia RARE, Anisocytosis RARE, Macrocytosis RARE, Target Cells RARE, Ovalocytes RARE 07/11/18 21:18: Sodium 137, Potassium 4.1, Chloride 103, Carbon Dioxide 28.0, Anion Gap 6, BUN 42 H, Creatinine 1.75 H, Estim Creat Clear Calc 33.11, Est GFR (MDRD) Af Amer 48 L, Est GFR (MDRD) Non-Af 40 L, BUN/Creatinine Ratio 24.0 H, Glucose 132 H, Calcium 8.2 L 07/11/18 21:18: B-Natriuretic Peptide 275.8 H 07/11/18 22:20: Urine Color Yellow, Urine Clarity Clear, Urine pH 6.0, Ur Specific [place] 1.010, Urine Protein Negative, Urine Glucose (UA) Normal, Urine Ketones Negative, Urine Occult Blood Negative, Urine Nitrite Negative, Urine Bilirubin Negative, Urine Urobilinogen Normal, Ur Leukocyte Esterase Negative, Urine RBC 0 SEEN, Urine WBC 0 SEEN, Ur Squamous Epith Cells 0 SEEN, Urine Bacteria 0 SEEN, Urine Mucus 0 SEEN 07/12/18 01:42: POC Glucose 167 H 07/12/18 05:10: Sodium 141, Potassium 4.1, Chloride 102, Carbon Dioxide 29.0, Anion Gap 10, BUN 43 H, Creatinine 1.62 H, Estim Creat Clear Calc 35.76, Est GFR (MDRD) Af Amer 53 L, Est GFR (MDRD) Non-Af 44 L, BUN/Creatinine Ratio 26.5 H, Glucose 186 H, Calcium 8.5 07/12/18 05:10: Hgb Pending, Hct Pending 07/12/18 06:40: Blood Type Pending, Antibody Screen Pending, Crossmatch See Detail Past Medical History Past Medical History (Chronic Problems): Chronic Problems (Last Updated 04/20/18 @ 08:39 by Pearl Vickers) NSTEMI (non-ST elevated myocardial infarction) (Chronic) Coronary artery disease (Chronic) Dizziness (Chronic) Depression (Chronic) GERD (gastroesophageal reflux disease) (Chronic) Chronic kidney disease (Chronic) Hypertension (Chronic) Atherosclerotic heart disease of [place] coronary artery without angina pectoris (Chronic) Essential hypertension (Chronic) Chronic renal insufficiency (Chronic) Morbid obesity with BMI of 40.0-44.9, adult (Chronic) Osteoarthritis (Chronic) Hypothyroidism (Chronic) Gout (Chronic) CKD (chronic kidney disease) stage 3, GFR 30-59 ml/min (Chronic) Medical History: Medical History (Last Updated 04/20/18 @ 08:39 by Pearl Vickers) Essential hypertension (Chronic) I10 GI bleed (Acute) K92.2 NSTEMI (non-ST elevated myocardial infarction) (Acute) I21.4 Chronic renal insufficiency (Chronic) N18.9 Macrocytic anemia (Acute) D53.9 Morbid obesity with BMI of 40.0-44.9, adult (Chronic) E66.01, Z68.41 Osteoarthritis (Chronic) M19.90 Hypothyroidism (Chronic) E03.9 Gout (Chronic) M10.9 Hyperkalemia (Acute) E87.5 Sepsis (Acute) A41.9 CKD (chronic kidney disease) stage 3, GFR 30-59 ml/min (Chronic) N18.3 Cellulitis (Acute) L03.90 HTN (hypertension) (Inactive) I10 Allergies atorvastatin [From Lipitor] Adverse Reaction (Verified 05/10/18 09:52) MUSCLE PAIN Home Medications: Ambulatory Orders Medication Instructions Recorded Allopurinol [Zyloprim] 300 mg PO DAILY 03/28/18 Fluoxetine HCl 40 mg PO DAILY 03/28/18 Levothyroxine Sodium [Synthroid] 125 mcg PO DAILY 03/28/18 Acetaminophen [Tylenol] 650 mg PO Q6H PRN PRN 07/08/18 Albuterol Aerosols [Ventolin 2.5 mg INHALATION Q2H PRN PRN 07/08/18 Aerosols] Apixaban [Eliquis] 5 mg PO BID 07/08/18 Ascorbic Acid 500 mg PO BID 07/08/18 Aspirin E.C. [Ecotrin] 81 mg PO DAILY 07/08/18 Atorvastatin Calcium [Lipitor] 40 mg PO QHS 07/08/18 Bisacodyl 10 mg RC DAILY PRN 07/08/18 Colchicine 0.6 mg PO DAILY 07/08/18 Ferrous Sulfate 325 mg PO BID 07/08/18 Furosemide 40 mg PO DAILY 07/08/18 Gabapentin [Neurontin] 300 mg PO TID 07/08/18 Ipratropium/Albuterol Sulfate 3 ml IH 5X/DAY 07/08/18 [Iprat-Albut 0.5-3(2.5) mg/3 ml] Lactobacillus Acidophilus 1 tablet PO BID 07/08/18 [Acidophilus] Melatonin 3 mg PO QHS PRN 07/08/18 Metoprolol Tartrate [Lopressor 12.5 mg PO TID 07/08/18 (beta av)] Oxycodone HCl/Acetaminophen 1 each PO Q6H PRN 07/08/18 [Oxycodone-Acetaminophen 5-325] Pantoprazole Sodium [Protonix] 40 mg PO DAILY 07/08/18 Polyethylene Glycol 3350 [Miralax] 17 gm PO DAILY PRN 07/08/18 Senna/Docusate Sodium [Senokot-S, 1 tablet PO DAILY PRN 07/08/18 Kimi-Colace] Tamsulosin HCl 0.4 mg PO DAILY 07/08/18 Surgical History: Surgical History (Last Updated 04/20/18 @ 08:41 by Pearl Vickers) History of bilateral hip replacements Z96.643 S/P bilateral foot surgery Z98.890 Surgical History: coronary bypass surgery - x 2., total hip arthroplasty - Bilateral., - - bilateral foot surgeries. Psychiatric History: Depression Lives: Spouse/ Significant Other Smoking Status: Former smoker Tobacco Use: Non-smoker Alcohol: None Drugs: None - *Family History Maternal Family History: Family History (Last Updated 04/20/18 @ 08:41 by Pearl Vickers) Father Cancer History Items: No pertinent history Paternal Family History: Family History (Last Updated 04/20/18 @ 08:41 by Pearl Vickers) Father Cancer History Items: Cancer - Tobacco user, lung cancer diagnosis. Capacity - Capacity Assessment Tool Can the patient make a choice & communicate that choice?: Yes Can the patient understand benefits, risks and alternatives?: Yes Can the patient make a logical, rational choice?: Yes Is the choice the patient makes consistent w/ their values?: Yes Is there an impending, emergent risk to the patient?: Yes Does the patient have an Advance Directive?: No Is there a Surrogate Available?: No i.e. HCPOA: No i.e. close relative (spouse, child, parent, sibling)?: No Review of Systems Constitutional: Denies: Chills, Fever, Weight Change HEENT: Denies: Head Aches, Sinus Congestion, Sinus Drainage Cardiovascular: Denies: Chest Pain, Palpitations Respiratory: Denies: Cough, Shortness of breath at rest, Sputum production Gastrointestinal: Denies: Abdominal Pain, Nausea, Vomiting Genitourinary: Denies: Dysuria Musculoskeletal: Denies: Joint Pain, Joint Tenderness Skin: Denies: Rash, Wounds Neurological: Denies: Numbness, Tingling, Focal weakness Psychiatric: Denies: Anxiety, Depression, Homicidal Ideations, Suicidal Ideations Hematologic/ Lymphatic: Denies: Easy Bruising, Easy Bleeding Patient Problems: Active and Suspected Problems (Last Updated 04/20/18 @ 08:39 by Pearl Vickers) Healthcare associated bacterial pneumonia (Acute) Atrial flutter (Acute) Acute blood loss anemia (Acute) - Physical Exam General: Alert, Oriented x3, Cooperative HEENT: Atraumatic, PERRLA, EOMI, Normocephalic Neck: Supple, No JVD, Negative Carotid Bruits Lungs: Rhonchi - Diffuse. Cardiovascular: Regular rate, No murmurs Abdomen: Bowel Sounds Present, Soft, Non Tender Extremities: No edema, Capillary Refill Less than 3 Seconds Skin: No rashes, No breakdown Musculoskeletal: No Tenderness to Palpation of Joints or Extremities Neurological: Cranial nerves II-XII grossly intact Psych/Mental Status: Normal Affect, Appropriate Vital Signs Temp Pulse Resp BP Pulse Ox 98.8 F 89 20 H 121/68 H 92 07/12/18 04:57 07/12/18 06:30 07/12/18 06:30 07/12/18 04:47 07/12/18 06:30 Oxygen Flow Rate (L/min) 4.5 Oxygen Delivery Method Nasal Cannula Weight: 142.145 kg Body Mass Index (BMI) 45.8 Finger Stick Blood Glucose 119 Intake and Output for Last 24 Hours 07/10/18 07/11/18 07/12/18 23:59 23:59 23:59 Intake Total 1080 / 1080 2790 / 2790 1600 / 1600 Output Total 350 / 350 2500 / 2500 2300 / 2300 Balance 730 / 730 290 / 290 -700 / -700 Microbiology Past 72 Hours 07/11/18 21:22 Respiratory Panel (PCR) - Final Mucosa - Nasopharyngeal Laboratory Tests Past 24 Hrs 07/11/18 07/11/18 07/11/18 21:18 21:18 21:18 WBC 6.8 RBC 2.70 L Hgb 7.5 L Hct 26.1 L MCV 96.7 H MCH 27.8 MCHC 28.7 L RDW 18.3 H RDW Differential 62.1 H Plt Count 150 MPV 9.0 Immature Gran % (Auto) 2.700 H Neut % (Auto) 72.4 H Lymph % (Auto) 15.8 L [place] % (Auto) 5.6 Eos % (Auto) 3.2 Baso % (Auto) 0.3 Absolute Neuts (auto) 4.9 Absolute Lymphs (auto) 1.07 Total Counted Not Reportable Diff Path Review May foll Hypochromasia RARE Anisocytosis RARE Macrocytosis RARE Target Cells RARE Ovalocytes RARE Sodium 137 Potassium 4.1 Chloride 103 Carbon Dioxide 28.0 Anion Gap 6 BUN 42 H Creatinine 1.75 H Estim Creat Clear Calc 33.11 Est GFR (MDRD) Af Amer 48 L Est GFR (MDRD) Non-Af 40 L BUN/Creatinine Ratio 24.0 H Glucose 132 H Calcium 8.2 L B-Natriuretic Peptide 275.8 H Urine Color Urine Clarity Urine pH Ur Specific [place] Urine Protein Urine Glucose (UA) Urine Ketones Urine Occult Blood Urine Nitrite Urine Bilirubin Urine Urobilinogen Ur Leukocyte Esterase Urine RBC Urine WBC Ur Squamous Epith Cells Urine Bacteria Urine Mucus Blood Type Antibody Screen Crossmatch 07/11/18 07/12/18 07/12/18 22:20 05:10 05:10 WBC RBC Hgb Pending Hct Pending MCV MCH MCHC RDW RDW Differential Plt Count MPV Immature Gran % (Auto) Neut % (Auto) Lymph % (Auto) [place] % (Auto) Eos % (Auto) Baso % (Auto) Absolute Neuts (auto) Absolute Lymphs (auto) Total Counted Diff Path Review Hypochromasia Anisocytosis Macrocytosis Target Cells Ovalocytes Sodium 141 Potassium 4.1 Chloride 102 Carbon Dioxide 29.0 Anion Gap 10 BUN 43 H Creatinine 1.62 H Estim Creat Clear Calc 35.76 Est GFR (MDRD) Af Amer 53 L Est GFR (MDRD) Non-Af 44 L BUN/Creatinine Ratio 26.5 H Glucose 186 H Calcium 8.5 B-Natriuretic Peptide Urine Color Yellow Urine Clarity Clear Urine pH 6.0 Ur Specific [place] 1.010 Urine Protein Negative Urine Glucose (UA) Normal Urine Ketones Negative Urine Occult Blood Negative Urine Nitrite Negative Urine Bilirubin Negative Urine Urobilinogen Normal Ur Leukocyte Esterase Negative Urine RBC 0 SEEN Urine WBC 0 SEEN Ur Squamous Epith Cells 0 SEEN Urine Bacteria 0 SEEN Urine Mucus 0 SEEN Blood Type Antibody Screen Crossmatch 07/12/18 06:40 WBC RBC Hgb Hct MCV MCH MCHC RDW RDW Differential Plt Count MPV Immature Gran % (Auto) Neut % (Auto) Lymph % (Auto) [place] % (Auto) Eos % (Auto) Baso % (Auto) Absolute Neuts (auto) Absolute Lymphs (auto) Total Counted Diff Path Review Hypochromasia Anisocytosis Macrocytosis Target Cells Ovalocytes Sodium Potassium Chloride Carbon Dioxide Anion Gap BUN Creatinine Estim Creat Clear Calc Est GFR (MDRD) Af Amer Est GFR (MDRD) Non-Af BUN/Creatinine Ratio Glucose Calcium B-Natriuretic Peptide Urine Color Urine Clarity Urine pH Ur Specific [place] Urine Protein Urine Glucose (UA) Urine Ketones Urine Occult Blood Urine Nitrite Urine Bilirubin Urine Urobilinogen Ur Leukocyte Esterase Urine RBC Urine WBC Ur Squamous Epith Cells Urine Bacteria Urine Mucus Blood Type Pending Antibody Screen Pending Crossmatch See Detail POC Glucose 07/12/18 01:42 POC Glucose 167 H Assessment/Plan All Active Problems (Last Updated 04/20/18 @ 08:39 by Pearl Vickers) Healthcare associated bacterial pneumonia (Acute) Atrial flutter (Acute) Acute blood loss anemia (Acute) Chest pain (Acute) GI bleed (Acute) NSTEMI (non-ST elevated myocardial infarction) (Acute) Macrocytic anemia (Acute) Hyperkalemia (Acute) Sepsis (Acute) Cellulitis (Acute) 82 year old male with below past medical history hospitalized at [facility], 06/23/2018, underwent CABG x 2, post-operative course complicated by polymicrobial pneumonia, anemia requiring transfusion, paroxysmal atrial flutter, acute kidney injury, admitted to TCU with debility, here for rehabilitation, strengthening, prior to discharge home with spouse. * Fecal impaction of colon - Miralax 17GM daily, Senna/colace 2 tablets BID, Dulcolax 10MG ND daily PRN, residual stool on KUB, Golytely 1 liter PO x 1 dose, good results this AM. * COPD - Duoneb 3ML Q6HRT, Albuterol 2.5MG Q2H PRN, Solu-Medrol 125MG IV x 1 dose. * Gout - Allopurinol 300MG daily, Stop Colchicine 0.6MG daily, can irritate stomach. * Atrial Fibrillation - Decrease Metoprolol 6.25MG BID, Eliquis 5MG BID held, restart Eliquis 2.5MG BID 07/17/2018. * Vitamin C deficiency - Stop Vitamin C 500MG BID, will acidify stomach more. * Coronary artery disease status post CABG x 2 - Metoprolol 6.25MG BID, Aspirin 81MG daily. * Hyperlipidemia - Atorvastatin 40MG QHS. * Iron deficiency anemia - Ferrex 150MG twice daily, Hemoglobin dropped from 8.3 to 7.5, Transfuse 2 units PRBC per protocol, Lasix 40MG IV between units. * Hypotension - NS 1 liter IV bolus, blood pressure improved. 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 * Fluid overload - Furosemide 40MG daily. * GERD - Pantoprazole 80MG IV push, then Pantoprazole 40MG IV twice daily, history of GI bleed, check stool guaiac, if positive, consider EGD/colonoscopy as outpatient, recent CABG, high risk for further procedures. * BPH/Urinary retention - Tamsulosin 0.4MG daily. * Hospital Acquired pneumonia - Chest X-ray showed bibasilar atelectasis, Cefepime 2GM IV Q8H x 7 days.
[2018-07-12] MEDS: Aspirin E.C. 81 MG Tablet PO (08:37)
[2018-07-12] MEDS: Allopurinol 300 MG Tablet PO (08:38)
[2018-07-12] MEDS: FLUoxetine 20 MG Capsule 40 MG PO (08:38)
[2018-07-12] MEDS: Senna/Docusate Sodium 1 Tablet 2 TABLET PO ×2 (08:38→17:48)
[2018-07-12] MEDS: Iron Polysaccharide Complex 150 MG CAPSULE PO ×2 (08:38→17:48)
--- NOTE | 2018-07-12 09:19 | NURSING ---
Pt left unit at 0855 to go for blood transfusion (2units) at the infusion center. Dr. West reviewed report for CXR and KUB, NNO.
[2018-07-12] MEDS: oxyCODONE 5 MG Tablet PO ×2 (16:08→20:09)
[2018-07-12] MEDS: Tamsulosin HCl 0.4 MG Capsule PO (17:48)
--- NOTE | 2018-07-12 18:17 | NURSING ---
Pt with pitting edema to legs/feet/hands. Dr West updated, new order to start IV lasix x5 days then back to PO. recheck BMP tuesday. elevate scrotum
[2018-07-12] MEDS: Furosemide 40 MG/4 ML Vial IV (19:54)
[2018-07-12] MEDS: Atorvastatin Calcium 40 MG Tablet PO (19:58)
[2018-07-12] MEDS: 0.9% NaCl IVPB Med Flush (250 mL) 15 ML IV (20:58)
[2018-07-13 05:09] VITALS: BP 135/74; PULSE 88; O2SAT 95
[2018-07-13] MEDS: Furosemide 40 MG/4 ML Vial IV (05:17)
[2018-07-13 05:22] VITALS: BP 135/74; PULSE 88
[2018-07-13] MEDS: Metoprolol Tartrate 25 MG Tablet 6.25 MG PO ×2 (05:22→16:48)
[2018-07-13] MEDS: Levothyroxine 125 MCG Tablet PO (05:23)
[2018-07-13] MEDS: Acetaminophen 500 MG Tablet 1000 MG PO (05:28)
[2018-07-13] MEDS: 0.9% NaCl Peripheral Flush Adult/Peds IV ×3 (05:29→14:29)
[2018-07-13 06:31] VITALS: O2SAT 95
[2018-07-13 08:48] LABS: Pathologist Review Reviewed
[2018-07-13] MEDS: Aspirin E.C. 81 MG Tablet PO (08:59)
[2018-07-13] MEDS: FLUoxetine 20 MG Capsule 40 MG PO (08:59)
[2018-07-13] MEDS: Iron Polysaccharide Complex 150 MG CAPSULE PO ×2 (08:59→16:47)
[2018-07-13] MEDS: Allopurinol 300 MG Tablet PO (09:13)
--- NOTE | 2018-07-13 09:23 | NURSING ---
Pt had small episode of epitaxis this morning, Bleeding was easily controlled. Pt stated he scratched the inside of his nose. Coy DAWN aware
--- NOTE | 2018-07-13 11:49 | CASEMGMT ---
Plan of care meeting held. Resident present as well as resident family. No discharge date set at this time. Resident to discharge to home with spouse when it is time of discharge. Resident to continue with further care and treatment on the Transitional Care Unit. Support given. Will continue to follow. Kenton CHAUDHARI, STEPHEN
[2018-07-13 13:17] VITALS: PULSE 82; RESP 20
[2018-07-13] MEDS: Ipratropium/Albuterol Sulfate 3 ML AMPUL.NEB INHALATION ×2 (13:17→19:50)
[2018-07-13 15:31] VITALS: BP 118/67; PULSE 97; RESP 18; TEMP 37; O2SAT 87
--- NOTE | 2018-07-13 16:16 | CHAPLAIN ---
Type of Pastoral Visit ___ Initial Visit _x__ Follow-up Visit ___ On-call Visit ___ General Patient Visit ___ Spiritual Assessment ___ Family Conference ___ Bereavement ___ Rapid Response ___ Code Blue ___ Other (describe below) Pastoral Care Referral From _x__ Patient ___ Family ___ Nurse ___ Physician ___ Mounting Inspector ___ Drapery Hand ___ Other (describe below) Sacrament/Intervention _x__ Active listening ___ Anointing ___ Judaism ___ Bereavement ___ Communion _x__ Cristin exploration ___ _x__ Life review _x__ Prayer ___ Reconciliation ___ Sacrament of Sick _x__ Supportive presence ___ Wedding ___ Other (describe below) Pastoral Comments
[2018-07-13] MEDS: Tamsulosin HCl 0.4 MG Capsule PO (16:47)
[2018-07-13 16:48] VITALS: BP 118/67; PULSE 97
[2018-07-13] MEDS: oxyCODONE 5 MG Tablet PO (16:52)
[2018-07-13] MEDS: Pantoprazole Sodium 40 MG Tablet PO (16:52)
[2018-07-13 17:33] LABS: Hematocrit 34.1 % (40-54); Hemoglobin 10.3 g/dl (13.0-16.5)
--- NOTE | 2018-07-13 17:41 | NURSING ---
Talked with ENROLLMENT NURSE at Dr. Fabian's office, requested labs be faxed over once H&H is resulted. [phone]
[2018-07-13] MEDS: Atorvastatin Calcium 40 MG Tablet PO (21:13)
[2018-07-14] VITALS (7 sets, daily range): BP systolic 139–153; BP diastolic 74–84; PULSE 90–99; RESP 16–20; TEMP 36.6; O2SAT 92
[2018-07-14] MEDS: 0.9% NaCl Peripheral Flush Adult/Peds IV (05:29)
[2018-07-14] MEDS: 0.9% NaCl IVPB Med Flush (250 mL) 15 ML IV (05:32)
[2018-07-14] MEDS: Furosemide 40 MG/4 ML Vial IV (05:39)
[2018-07-14] MEDS: Pantoprazole Sodium 40 MG Tablet PO ×2 (05:53→17:31)
[2018-07-14] MEDS: Levothyroxine 125 MCG Tablet PO (05:53)
[2018-07-14] MEDS: Metoprolol Tartrate 25 MG Tablet 6.25 MG PO ×2 (05:54→17:31)
[2018-07-14 06:27] LABS: Anion Gap 7 (5-15); BUN 50 mg/dL (7-18); BUN/Creat Ratio 28.9 RATIO (10-20); Calcium,Total 8.6 mg/dL (8.5-10.1); Chloride 106 mmol/L (98-107); Creatinine, Serum 1.73 mg/dL (0.70-1.30); EST Glomerular Filtration Rate 40 mL/min (>60); Est Glom Filt Rate - Afr Amer 49 mL/min (>60); Estimated Creatinine Clearance 33.49 ml/min; Glucose 118 mg/dL (74-106); Potassium 3.8 mmol/L (3.5-5.1); Sodium Level 142 mmol/L (136-145)
[2018-07-14] MEDS: Ipratropium/Albuterol Sulfate 3 ML AMPUL.NEB INHALATION ×3 (07:25→18:50)
[2018-07-14] MEDS: Allopurinol 300 MG Tablet PO (09:33)
[2018-07-14] MEDS: Iron Polysaccharide Complex 150 MG CAPSULE PO ×2 (09:34→17:30)
[2018-07-14] MEDS: Aspirin E.C. 81 MG Tablet PO (09:34)
[2018-07-14] MEDS: Senna/Docusate Sodium 1 Tablet 2 TABLET PO (09:34)
[2018-07-14] MEDS: FLUoxetine 20 MG Capsule 40 MG PO (09:34)
[2018-07-14] MEDS: oxyCODONE 5 MG Tablet PO ×2 (09:40→17:38)
--- NOTE | 2018-07-14 13:08 | CASEMGMT ---
BIMS and PHQ9 interviews completed on this date for MDS assessment. PHQ9 score 06/11, BIMS 04/29 BAY Glass
--- NOTE | 2018-07-14 13:35 | MDS.RN ---
Pain interview for evelyn 07/15/18 completed.
[2018-07-14] MEDS: Tamsulosin HCl 0.4 MG Capsule PO (17:30)
[2018-07-14] MEDS: Atorvastatin Calcium 40 MG Tablet PO (22:09)
[2018-07-15] VITALS (7 sets, daily range): BP systolic 106–136; BP diastolic 70–81; PULSE 88–100; RESP 20; TEMP 36.5–36.9; O2SAT 92–93
[2018-07-15] MEDS: Furosemide 40 MG/4 ML Vial IV (05:51)
[2018-07-15] MEDS: Pantoprazole Sodium 40 MG Tablet PO ×2 (05:51→17:31)
[2018-07-15] MEDS: Levothyroxine 125 MCG Tablet PO (05:52)
[2018-07-15] MEDS: Metoprolol Tartrate 25 MG Tablet 6.25 MG PO ×2 (05:53→17:30)
[2018-07-15] MEDS: Ipratropium/Albuterol Sulfate 3 ML AMPUL.NEB INHALATION ×3 (06:32→19:55)
[2018-07-15] MEDS: Aspirin E.C. 81 MG Tablet PO (07:50)
[2018-07-15] MEDS: Iron Polysaccharide Complex 150 MG CAPSULE PO ×2 (07:50→17:31)
[2018-07-15] MEDS: Senna/Docusate Sodium 1 Tablet 2 TABLET PO ×2 (07:51→17:31)
[2018-07-15] MEDS: Allopurinol 300 MG Tablet PO (07:51)
[2018-07-15] MEDS: FLUoxetine 20 MG Capsule 40 MG PO (07:51)
[2018-07-15] MEDS: oxyCODONE 5 MG Tablet PO ×3 (07:57→19:53)
[2018-07-15] MEDS: Polyethylene Glycol 3350 17 GM PACKET PO (07:59)
[2018-07-15] MEDS: Acetaminophen 500 MG Tablet 1000 MG PO (09:41)
[2018-07-15] MEDS: 0.9% NaCl Peripheral Flush Adult/Peds IV (14:04)
[2018-07-15] MEDS: Tamsulosin HCl 0.4 MG Capsule PO (17:31)
[2018-07-15] MEDS: Atorvastatin Calcium 40 MG Tablet PO (19:54)
[2018-07-15] MEDS: 0.9% NaCl IVPB Med Flush (250 mL) 15 ML IV (22:01)
[2018-07-16] MEDS: Furosemide 40 MG/4 ML Vial IV (06:08)
[2018-07-16] MEDS: Pantoprazole Sodium 40 MG Tablet PO (06:08)
[2018-07-16] MEDS: Levothyroxine 125 MCG Tablet PO (06:08)
[2018-07-16 06:09] VITALS: BP 130/74; PULSE 79
[2018-07-16] MEDS: Metoprolol Tartrate 25 MG Tablet 6.25 MG PO ×2 (06:09→17:18)
[2018-07-16 06:27] VITALS: PULSE 85; RESP 20; O2SAT 94
[2018-07-16] MEDS: Ipratropium/Albuterol Sulfate 3 ML AMPUL.NEB INHALATION (06:27)
[2018-07-16 07:24] LABS: Anion Gap 8 (5-15); BUN 36 mg/dL (7-18); BUN/Creat Ratio 23.4 RATIO (10-20); Calcium,Total 8.7 mg/dL (8.5-10.1); Chloride 103 mmol/L (98-107); Creatinine, Serum 1.54 mg/dL (0.70-1.30); EST Glomerular Filtration Rate 46 mL/min (>60); Est Glom Filt Rate - Afr Amer 56 mL/min (>60); Estimated Creatinine Clearance 37.62 ml/min; Glucose 131 mg/dL (74-106); Potassium 3.9 mmol/L (3.5-5.1); Sodium Level 142 mmol/L (136-145)
[2018-07-16] MEDS: Polyethylene Glycol 3350 17 GM PACKET PO (07:48)
[2018-07-16] MEDS: Aspirin E.C. 81 MG Tablet PO (07:48)
[2018-07-16] MEDS: Iron Polysaccharide Complex 150 MG CAPSULE PO ×2 (07:48→17:14)
[2018-07-16] MEDS: Allopurinol 300 MG Tablet PO (07:49)
[2018-07-16] MEDS: FLUoxetine 20 MG Capsule 40 MG PO (07:49)
[2018-07-16] MEDS: Senna/Docusate Sodium 1 Tablet 2 TABLET PO ×2 (07:49→17:14)
[2018-07-16] MEDS: oxyCODONE 5 MG Tablet PO ×3 (07:54→19:44)
[2018-07-16 07:55] LABS: Absolute Neutrophil Count 5.1 X10^3/uL (2.0-7.7); Basophil# 0.02 X10^3/uL; Basophil% 0.3 % (0-1); Eosinophil# 0.47 X10^3/uL; Eosinophils% 6.7 % (0-5); Hematocrit 35.8 % (40-54); Hemoglobin 10.4 g/dl (13.0-16.5); Lymphocyte % 9.9 % (19-41); Mean Corp Hgb Conc 29.1 g/gl (32-36); Mean Corpuscular Hgb 28.1 pg (27.0-32.0); Mean Corpuscular Volume 96.8 fL (80-94); Monocyte# 0.56 X10^3/uL; Monocyte% 7.9 % (0-10); Neutrophil # 5.12 X10^3/uL (2.7-7.7); Neutrophil % 72.6 % (47-70); Platelet Count 150 K/mm3 (150-450); RBC Distribution Width CV 17.8 % (11.6-14.6); RBC Distribution Width SD 62.3 fl (35.1-43.9); White Blood Count 7.1 K/mm3 (4.4-11.0)
[2018-07-16 07:56] LABS: POSITIVE COUNT YES; POSITIVE DIFFERENTIAL NO; POSITIVE MORPHOLOGY YES
[2018-07-16] MEDS: Tuberculin,Purif.prot.deriv. 50 TU/ML Vial 5 ML ID (10:55)
[2018-07-16] MEDS: 0.9% NaCl Peripheral Flush Adult/Peds IV ×2 (13:19→21:25)
[2018-07-16 15:46] VITALS: BP 113/66; PULSE 70; RESP 20; TEMP 36.8; O2SAT 95
[2018-07-16] MEDS: Tamsulosin HCl 0.4 MG Capsule PO (17:14)
[2018-07-16 17:18] VITALS: BP 113/66; PULSE 70
[2018-07-16] MEDS: Atorvastatin Calcium 40 MG Tablet PO (19:38)
[2018-07-16 19:44] VITALS: PULSE 84; O2SAT 93
[2018-07-16] MEDS: 0.9% NaCl IVPB Med Flush (250 mL) 15 ML IV (21:25)
--- NOTE | 2018-07-16 23:43 | NURSING ---
Pt stating to this nurse that he had lots of visitors in room today and it wore him out. Pt requesting visitors only stay a maximum of 20 minutes per visit. Sign posted on door.
[2018-07-17] MEDS: Furosemide 40 MG/4 ML Vial IV (05:38)
[2018-07-17] MEDS: 0.9% NaCl Peripheral Flush Adult/Peds IV ×3 (05:39→21:31)
[2018-07-17 05:51] VITALS: BP 142/78; PULSE 97
[2018-07-17] MEDS: Pantoprazole Sodium 40 MG Tablet PO (05:51)
[2018-07-17] MEDS: Levothyroxine 125 MCG Tablet PO (05:51)
[2018-07-17] MEDS: Metoprolol Tartrate 25 MG Tablet 6.25 MG PO ×2 (05:51→17:54)
[2018-07-17] MEDS: oxyCODONE 5 MG Tablet PO ×3 (05:55→14:33)
[2018-07-17] MEDS: Ipratropium/Albuterol Sulfate 3 ML AMPUL.NEB INHALATION (07:08)
[2018-07-17 07:39] VITALS: PULSE 98; RESP 20; O2SAT 96
[2018-07-17] MEDS: FLUoxetine 20 MG Capsule 40 MG PO (08:43)
[2018-07-17] MEDS: Senna/Docusate Sodium 1 Tablet 2 TABLET PO ×2 (08:44→17:54)
[2018-07-17] MEDS: Acetaminophen 500 MG Tablet 1000 MG PO (08:44)
[2018-07-17] MEDS: Iron Polysaccharide Complex 150 MG CAPSULE PO ×2 (08:45→17:52)
[2018-07-17] MEDS: Allopurinol 300 MG Tablet PO (08:45)
[2018-07-17] MEDS: Aspirin E.C. 81 MG Tablet PO (08:45)
[2018-07-17] MEDS: Polyethylene Glycol 3350 17 GM PACKET PO (08:45)
[2018-07-17] MEDS: 0.9% NaCl IVPB Med Flush (250 mL) 15 ML IV ×2 (14:17→21:31)
[2018-07-17 14:20] LABS: Pathologist Review Reviewed
[2018-07-17 15:15] VITALS: BP 101/57; PULSE 99; RESP 18; TEMP 37.1; O2SAT 90
--- NOTE | 2018-07-17 16:03 | CASEMGMT ---
Social Work Spoke with resident and resident family in room. Resident inquiring about setting a discharge date for this Tuesday, spoke with team. Team recommending for resident to continue with services at this time for further strengthening and medical management. Resident voicing understanding and agreeable to not setting a date at this time but wanting a adoption social worker to follow up with resident on to see if resident status has changed and if resident would in fact be able to discharge on Tuesday. Resident aware that resident is able to make choice in regards to discharge date as well. Support given. Will continue to follow. Kenton CHAUDHARI, STEPHEN
[2018-07-17] MEDS: APIXABAN 2.5 MG TABLET PO (17:53)
[2018-07-17] MEDS: Tamsulosin HCl 0.4 MG Capsule PO (17:53)
[2018-07-17 17:54] VITALS: BP 101/57; PULSE 99
[2018-07-17] MEDS: Menthol/Lanolin/Calamine/Znox 113 GM Tube 1 APPLIC TOPICAL (18:09)
[2018-07-17] MEDS: Atorvastatin Calcium 40 MG Tablet PO (21:28)
[2018-07-18] MEDS: Menthol/Lanolin/Calamine/Znox 113 GM Tube 1 APPLIC TOPICAL ×2 (06:35→17:37)
[2018-07-18] MEDS: 0.9% NaCl Peripheral Flush Adult/Peds IV ×3 (06:35→21:22)
[2018-07-18 06:43] VITALS: BP 132/76; PULSE 93
[2018-07-18] MEDS: Ipratropium/Albuterol Sulfate 3 ML AMPUL.NEB INHALATION ×2 (06:43→13:48)
[2018-07-18] MEDS: Metoprolol Tartrate 25 MG Tablet 6.25 MG PO ×2 (06:43→17:35)
[2018-07-18] MEDS: Levothyroxine 125 MCG Tablet PO (06:43)
[2018-07-18] MEDS: Pantoprazole Sodium 40 MG Tablet PO (06:44)
[2018-07-18] MEDS: APIXABAN 2.5 MG TABLET PO ×2 (06:44→17:35)
[2018-07-18] MEDS: Furosemide 40 MG/4 ML Vial IV (06:44)
[2018-07-18] MEDS: Aspirin E.C. 81 MG Tablet PO (08:18)
[2018-07-18] MEDS: Polyethylene Glycol 3350 17 GM PACKET PO (08:18)
[2018-07-18] MEDS: Allopurinol 300 MG Tablet PO (08:18)
[2018-07-18] MEDS: FLUoxetine 20 MG Capsule 40 MG PO (08:18)
[2018-07-18] MEDS: Iron Polysaccharide Complex 150 MG CAPSULE PO ×2 (08:18→17:34)
[2018-07-18] MEDS: Senna/Docusate Sodium 1 Tablet 2 TABLET PO ×2 (08:18→17:35)
[2018-07-18 08:20] VITALS: PULSE 88; RESP 20; O2SAT 92
[2018-07-18] MEDS: Acetaminophen 500 MG Tablet 1000 MG PO (09:52)
[2018-07-18] MEDS: oxyCODONE 5 MG Tablet PO ×2 (11:28→20:45)
--- NOTE | 2018-07-18 12:15 | PCM.PN.RX ---
<PaulaJb alvares D - Last Filed: 07/18/18 12:15> Progress Note - Pharmacy Subjective: TCU Admission Objective: Allergies atorvastatin [From Lipitor] Adverse Reaction (Verified 05/10/18 09:52) MUSCLE PAIN Current Medications Generic Name Dose Route Start Last Admin Trade Name Freq PRN Reason Stop Dose Admin Acetaminophen 1,000 mg 07/08/18 19:26 07/18/18 09:52 Tylenol PO 1,000 mg Q6H PRN Administration MILD PAIN (1-07/23) Albuterol Sulfate 2.5 mg 07/08/18 18:34 07/11/18 22:55 Ventolin Aerosols INHALATION 2.5 mg Q2H PRN PRN Administration SOB &/OR WHEEZING Albuterol/Ipratropium 3 ml 07/08/18 19:30 07/18/18 06:43 Duoneb INHALATION 3 ml Q6HWA.RT FRENCH Administration Allopurinol 300 mg 07/09/18 08:00 07/18/18 08:18 Zyloprim PO 300 mg DAILYCM FRENCH Administration Apixaban 2.5 mg 07/17/18 18:00 07/18/18 06:44 Eliquis PO 2.5 mg BID FRENCH Administration Aspirin 81 mg 07/09/18 08:00 07/18/18 08:18 Ecotrin PO 81 mg DAILYCM FRENCH Administration Atorvastatin Calcium 40 mg 07/08/18 22:00 07/17/18 21:28 Lipitor PO 40 mg QHS FRENCH Administration Bisacodyl 10 mg 07/08/18 18:34 Dulcolax RECTAL DAILY PRN Constipation Calamine/Phenol 1 applic 07/17/18 18:00 07/18/18 06:35 Calmoseptine Ointment TOPICAL 1 applicatio BID FRENCH Administration Protocol Fluoxetine HCl 40 mg 07/09/18 08:00 07/18/18 08:18 Prozac PO 40 mg DAILY@0800 FRENCH Administration Furosemide 40 mg 07/12/18 06:00 07/12/18 04:46 Lasix PO 40 mg DAILY FRENCH Administration Cefepime HCl 2 gm/ Sodium 100 mls @ 200 mls/hr 07/12/18 06:00 07/18/18 06:35 Chloride IV 07/18/18 22:01 200 mls/hr Q8 FRENCH Administration Sodium Chloride 250 mls @ 15 mls/hr 07/11/18 21:40 07/17/18 21:31 IV 15 mls/hr .[id number] PRN Administration SALINE FLUSH Lactobacillus Acidophilus 1 tablet 07/09/18 08:00 07/18/18 08:18 Acidophilus PO 1 tablet BID@0800,1800 FRENCH Administration Levothyroxine Sodium 125 mcg 07/09/18 06:00 07/18/18 06:43 Synthroid PO 125 mcg DAILY@0600 FRENCH Administration Melatonin 3 mg 07/08/18 22:00 Melatonin PO QHS PRN insomnia Metoprolol Tartrate 6.25 mg 07/12/18 06:00 07/18/18 06:43 Lopressor (Beta Randa) PO 6.25 mg BID FRENCH Administration Oxycodone HCl 5 mg 07/08/18 19:27 07/18/18 11:28 Oxyir PO 5 mg Q4H PRN Administration MODERATE PAIN (4-5/10) Pantoprazole Sodium 40 mg 07/17/18 06:00 07/18/18 06:44 Protonix PO 40 mg DAILY FRENCH Administration Polyethylene Glycol 17 gm 07/09/18 08:00 07/18/18 08:18 Miralax PO 17 gm DAILY@0800 FRENCH Administration Polysaccharide Iron Complex 150 mg 07/09/18 08:00 07/18/18 08:18 Ferrex 150 PO 150 mg BIDCM FRENCH Administration Senna/Docusate Sodium 2 tablet 07/09/18 08:00 07/18/18 08:18 Senokot-S, Kimi-Colace PO 2 tablet BID@0800,1800 FRENCH Administration Sodium Chloride 5 - 15 ml 07/11/18 21:40 07/18/18 06:35 IV 10 ml UD PRN Administration SALINE FLUSH Tamsulosin HCl 0.4 mg 07/09/18 17:30 07/17/18 17:53 Flomax PO 0.4 mg DAILY@1730 FRENCH Administration Problem List (Last Updated 04/20/18 @ 08:39 by Pearl Vickers) Healthcare associated bacterial pneumonia (Acute) Atrial flutter (Acute) NSTEMI (non-ST elevated myocardial infarction) (Chronic) Coronary artery disease (Chronic) Acute blood loss anemia (Acute) Dizziness (Chronic) Depression (Chronic) GERD (gastroesophageal reflux disease) (Chronic) Chronic kidney disease (Chronic) Hypertension (Chronic) Vital Signs Temp Pulse Resp BP Pulse Ox 98.7 F 88 20 H 132/76 H 92 07/17/18 15:15 07/18/18 08:20 07/18/18 08:20 07/18/18 06:43 07/18/18 08:20 Oxygen Flow Rate (L/min) 3 Oxygen Delivery Method Nasal Cannula Weight: 132.194 kg Body Mass Index (BMI) 45.8 Finger Stick Blood Glucose 119 Sodium 142 mmol/L (136-145) 07/16/18 06:45 Potassium 3.9 mmol/L (3.5-5.1) 07/16/18 06:45 Chloride 103 mmol/L (98-107) 07/16/18 06:45 Carbon Dioxide 31.0 mmol/L (21.0-32.0) 07/16/18 06:45 Anion Gap 8 (5-15) 07/16/18 06:45 BUN 36 mg/dL (7-18) H 07/16/18 06:45 Creatinine 1.54 mg/dL (0.70-1.30) H 07/16/18 06:45 Est GFR (MDRD) Af Amer 56 mL/min (>60) L 07/16/18 06:45 Est GFR (MDRD) Non-Af 46 mL/min (>60) L 07/16/18 06:45 BUN/Creatinine Ratio 23.4 RATIO (10-20) H 07/16/18 06:45 Glucose 131 mg/dL (74-106) H 07/16/18 06:45 Assessment/Plan: 1) Pain APAP for mild pain, oxycodone for moderate pain. Continue to monitor daily pain scores, prn medication use. 2) Pulm Duoneb aerosols scheduled, prn albuterol. Continue to monitor prn medication use, for shortness of breath. 3) AFib/CAD Apixaban, metoprolol, ASA, atorvastatin. Continue to monitor BP/HR, renal function, s/s bleeding/clot, lipids. 4) ID Cefepime for PNA thru 07/18. Continue to monitor s/s infection. 5) Fluid Overload Furosemide daily (currently on hold). Continue to monitor swelling, renal function, electrolytes. 6) Hypothyroidism Levothyroxine daily. Continue to monitor s/s hyper/hypothyroidism. 7) GI Pantoprazole, lactobacillus. Continue to monitor for s/s GI distress. 8) Sleep Melatonin at HS prn. Continue to monitor prn medication use, for insomnia. 9) Gout Allopurinol daily. Continue to monitor s/s gout. 10) BPH Tamsulosin. Continue to monitor for symptoms. Psychotropic Medications: 11) Depression Fluoxetine daily. Continue to monitor s/s depression. Unnecessary Medications: None Bowel Regimen: 12) Senna/s, PEG, prn bisacodyl. Continue to monitor prn medication use, for constipation/diarrhea. Date of Note:: 07/18/18 - Provider Comments Provider responsibility: Provider responsible to enter orders to implement recommendations <Álvaro West Chi - Last Filed: 07/18/18 17:50> Progress Note - Pharmacy Subjective: [] Objective: Allergies atorvastatin [From Lipitor] Adverse Reaction (Verified 05/10/18 09:52) MUSCLE PAIN Current Medications Generic Name Dose Route Start Last Admin Trade Name Freq PRN Reason Stop Dose Admin Acetaminophen 1,000 mg 07/08/18 19:26 07/18/18 09:52 Tylenol PO 1,000 mg Q6H PRN Administration MILD PAIN (1-3/10) Albuterol Sulfate 2.5 mg 07/08/18 18:34 07/11/18 22:55 Ventolin Aerosols INHALATION 2.5 mg Q2H PRN PRN Administration SOB &/OR WHEEZING Albuterol/Ipratropium 3 ml 07/08/18 19:30 07/18/18 13:48 Duoneb INHALATION 3 ml Q6HWA.RT FRENCH Administration Allopurinol 300 mg 07/09/18 08:00 07/18/18 08:18 Zyloprim PO 300 mg DAILYCM FRENCH Administration Apixaban 2.5 mg 07/17/18 18:00 07/18/18 17:35 Eliquis PO 2.5 mg BID FRENCH Administration Aspirin 81 mg 07/09/18 08:00 07/18/18 08:18 Ecotrin PO 81 mg DAILYCM FRENCH Administration Atorvastatin Calcium 40 mg 07/08/18 22:00 07/17/18 21:28 Lipitor PO 40 mg QHS FRENCH Administration Bisacodyl 10 mg 07/08/18 18:34 Dulcolax RECTAL DAILY PRN Constipation Calamine/Phenol 1 applic 07/17/18 18:00 07/18/18 17:37 Calmoseptine Ointment TOPICAL 1 applicatio BID FRENCH Administration Protocol Fluoxetine HCl 40 mg 07/09/18 08:00 07/18/18 08:18 Prozac PO 40 mg DAILY@0800 FRENCH Administration Furosemide 40 mg 07/12/18 06:00 07/12/18 04:46 Lasix PO 40 mg DAILY FRENCH Administration Cefepime HCl 2 gm/ Sodium 100 mls @ 200 mls/hr 07/12/18 06:00 07/18/18 13:44 Chloride IV 07/18/18 22:01 200 mls/hr Q8 FRENCH Administration Sodium Chloride 250 mls @ 15 mls/hr 07/11/18 21:40 07/17/18 21:31 IV 15 mls/hr .[id number] PRN Administration SALINE FLUSH Lactobacillus Acidophilus 1 tablet 07/09/18 08:00 07/18/18 17:34 Acidophilus PO 1 tablet BID@0800,1800 FRENCH Administration Levothyroxine Sodium 125 mcg 07/09/18 06:00 07/18/18 06:43 Synthroid PO 125 mcg DAILY@0600 FRENCH Administration Melatonin 3 mg 07/08/18 22:00 Melatonin PO QHS PRN insomnia Metoprolol Tartrate 6.25 mg 07/12/18 06:00 07/18/18 17:35 Lopressor (Beta Randa) PO 6.25 mg BID FRENCH Administration Oxycodone HCl 5 mg 07/08/18 19:27 07/18/18 11:28 Oxyir PO 5 mg Q4H PRN Administration MODERATE PAIN (4-5/10) Pantoprazole Sodium 40 mg 07/17/18 06:00 07/18/18 06:44 Protonix PO 40 mg DAILY FRENCH Administration Polyethylene Glycol 17 gm 07/09/18 08:00 07/18/18 08:18 Miralax PO 17 gm DAILY@0800 FRENCH Administration Polysaccharide Iron Complex 150 mg 07/09/18 08:00 07/18/18 17:34 Ferrex 150 PO 150 mg BIDCM FRENCH Administration Senna/Docusate Sodium 2 tablet 07/09/18 08:00 07/18/18 17:35 Senokot-S, Kimi-Colace PO 2 tablet BID@0800,1800 FRENCH Administration Sodium Chloride 5 - 15 ml 07/11/18 21:40 07/18/18 13:42 IV 10 ml UD PRN Administration SALINE FLUSH Tamsulosin HCl 0.4 mg 07/09/18 17:30 07/18/18 17:34 Flomax PO 0.4 mg DAILY@1730 [facility] Administration Problem List (Last Updated 04/20/18 @ 08:39 by Pearl Vickers) Healthcare associated bacterial pneumonia (Acute) Atrial flutter (Acute) NSTEMI (non-ST elevated myocardial infarction) (Chronic) Coronary artery disease (Chronic) Acute blood loss anemia (Acute) Dizziness (Chronic) Depression (Chronic) GERD (gastroesophageal reflux disease) (Chronic) Chronic kidney disease (Chronic) Hypertension (Chronic) Vital Signs Temp Pulse Resp BP Pulse Ox 98.9 F 93 20 H 106/63 92 07/18/18 16:00 07/18/18 17:35 07/18/18 16:00 07/18/18 17:35 07/18/18 16:00 Oxygen Flow Rate (L/min) 3 Oxygen Delivery Method Nasal Cannula Weight: 132.194 kg Body Mass Index (BMI) 45.8 Finger Stick Blood Glucose 119 Sodium 142 mmol/L (136-145) 07/16/18 06:45 Potassium 3.9 mmol/L (3.5-5.1) 07/16/18 06:45 Chloride 103 mmol/L (98-107) 07/16/18 06:45 Carbon Dioxide 31.0 mmol/L (21.0-32.0) 07/16/18 06:45 Anion Gap 8 (5-15) 07/16/18 06:45 BUN 36 mg/dL (7-18) H 07/16/18 06:45 Creatinine 1.54 mg/dL (0.70-1.30) H 07/16/18 06:45 Est GFR (MDRD) Af Amer 56 mL/min (>60) L 07/16/18 06:45 Est GFR (MDRD) Non-Af 46 mL/min (>60) L 07/16/18 06:45 BUN/Creatinine Ratio 23.4 RATIO (10-20) H 07/16/18 06:45 Glucose 131 mg/dL (74-106) H 07/16/18 06:45 Assessment/Plan: Psychotropic Medications: Unnecessary Medications: Bowel Regimen: - Provider Comments Provider responsibility: Provider responsible to enter orders to implement recommendations Provider Comments to Recommendations by Pharmacy: Agree
[2018-07-18 13:49] VITALS: PULSE 95; RESP 18
[2018-07-18 16:00] VITALS: BP 106/63; PULSE 93; RESP 20; TEMP 37.2; O2SAT 92
--- NOTE | 2018-07-18 16:26 | NURSING ---
LÓPEZ RICHEY WOUND NURSE IN TO SEE PT. LÓPEZ RICHEY STATED NO MEPILEX TO BOTTOM JUST CALMOSEPTINE AT THIS TIME. PT HAS MOISTURE AND SHEARING. ROSSI STATED PT AND STATED TO HER THAT PT DOES SCOOT ALOT IN BED AND CHAIR. REPORTED TO LÓPEZ FERGUSON
--- NOTE | 2018-07-18 16:30 | NURSING ---
NELSON LAINEZ STATED TO THIS NURSE THAT HE HAD TO TURN PT 02 UP TO 3L DUE TO OXYGEN FELL TO 86% WITH ACTIVITY. HE THEN TURNED UP TO 4L AND OXYGEN WENT TO 87%. PT RESTED A FEW MINUTES AND OXYGEN WENT INTO THE LOW 90S. PT AT REST NOW AT 3L AT 92%. REPORTED TO LÓPEZ FERGUSON
[2018-07-18] MEDS: Tamsulosin HCl 0.4 MG Capsule PO (17:34)
[2018-07-18 17:35] VITALS: BP 106/63; PULSE 93
--- NOTE | 2018-07-18 18:01 | RAD_ITS ---
STUDY: X-RAY CHEST REASON FOR EXAM: Male, 82 years old. Cough. TECHNIQUE: PA and lateral views of the chest. COMPARISON: June 10, 2018 FINDINGS: There are bibasilar streaky opacities. There are stable prominent interstitial markings. Sternal cerclage wires are present from a prior sternotomy. The cardiac silhouette is stable. Normal mediastinum and joey. Normal visualized pulmonary arteries. There is atherosclerotic calcification of the aortic arch with tortuosity. Normal visualized thoracic spine. Normal visualized ribs, clavicles, and shoulders. There is no demonstrated abnormality of the visualized soft tissue structures of the upper abdomen. RAD/Chest PA and Lateral IMPRESSION: Bibasilar streaky opacities likely secondary to underlying atelectasis, cannot exclude associated with pneumonia. Electronically Signed: Danika Joyner MD at 19:20 EST Tel , Service support ,
[2018-07-18] MEDS: Atorvastatin Calcium 40 MG Tablet PO (20:43)
--- NOTE | 2018-07-18 22:16 | NURSING ---
Dr. West notified of chest xray results. No new orders given. Patient needs to continue using incentive spirometer to help with coughing up secretions.
[2018-07-19] VITALS (7 sets, daily range): BP systolic 117–136; BP diastolic 62–79; PULSE 74–94; RESP 18–26; TEMP 36.7; O2SAT 90–92
[2018-07-19] MEDS: Metoprolol Tartrate 25 MG Tablet 6.25 MG PO ×2 (05:35→18:39)
[2018-07-19] MEDS: APIXABAN 2.5 MG TABLET PO ×2 (05:36→18:39)
[2018-07-19] MEDS: Levothyroxine 125 MCG Tablet PO (05:37)
[2018-07-19] MEDS: Pantoprazole Sodium 40 MG Tablet PO (05:37)
[2018-07-19] MEDS: Furosemide 40 MG Tablet PO (05:39)
[2018-07-19] MEDS: Menthol/Lanolin/Calamine/Znox 113 GM Tube 1 APPLIC TOPICAL ×2 (05:41→18:39)
[2018-07-19] MEDS: Ipratropium/Albuterol Sulfate 3 ML AMPUL.NEB INHALATION ×3 (06:57→19:01)
[2018-07-19] MEDS: Aspirin E.C. 81 MG Tablet PO (08:30)
[2018-07-19] MEDS: Allopurinol 300 MG Tablet PO (08:30)
[2018-07-19] MEDS: FLUoxetine 20 MG Capsule 40 MG PO (08:30)
[2018-07-19] MEDS: Senna/Docusate Sodium 1 Tablet 2 TABLET PO (08:30)
[2018-07-19] MEDS: Iron Polysaccharide Complex 150 MG CAPSULE PO ×2 (08:30→18:39)
[2018-07-19] MEDS: Polyethylene Glycol 3350 17 GM PACKET PO (08:30)
[2018-07-19] MEDS: oxyCODONE 5 MG Tablet PO ×2 (08:36→18:42)
--- NOTE | 2018-07-19 10:28 | NURSING ---
Dr West reviewed xrays of LT FA & chest. new order for mucomyst aerosals and started on medrol dose juan. Pt instructed that he needs to do deep breathing exercises frequently.
[2018-07-19] MEDS: Acetylcysteine 800 MG/4 ML VIAL.NEB. INHALATION ×2 (12:43→23:11)
--- NOTE | 2018-07-19 16:49 | CASEMGMT ---
Brief interview for mental status (BIMS) and resident mood interview (PHQ-9) completed on this day. BIMS score 13/15. PHQ-9 score
[2018-07-19] MEDS: Tamsulosin HCl 0.4 MG Capsule PO (18:39)
--- NOTE | 2018-07-19 20:01 | PN_ITS ---
Subjective: Resident seen in room, sitting in chair. He finished 7 day course of IV Cefepime for hospital acquired pneumonia. He continues to have crackles, rh onchi, wheezing on lung exam. Vitals/I&O's: Vital Signs Temp Pulse Resp BP Pulse Ox 98.1 F 74 20 H 117/62 90 07/19/18 15:58 07/19/18 18:39 07/19/18 15:58 07/19/18 18:39 07/19/18 15:58 Oxygen Flow Rate (L/min) 3 Oxygen Delivery Method Nasal Cannula Weight: 130.238 kg Body Mass Index (BMI) 45.8 Finger Stick Blood Glucose 119 Intake and Output for Last 24 Hours 07/17/18 07/18/18 07/19/18 23:59 23:59 23:59 Intake Total 1249 / 1249 1440 / 1440 720 / 720 Output Total 140 / 140 Balance 1249 / 1249 1300 / 1300 720 / 720 Past Medical History Past Medical History (Chronic Problems): Chronic Problems (Last Updated 04/20/18 @ 08:39 by Pearl Vickers) NSTEMI (non-ST elevated myocardial infarction) (Chronic) Coronary artery disease (Chronic) Dizziness (Chronic) Depression (Chronic) GERD (gastroesophageal reflux disease) (Chronic) Chronic kidney disease (Chronic) Hypertension (Chronic) Atherosclerotic heart disease of [place] coronary artery without angina pectoris (Chronic) Essential hypertension (Chronic) Chronic renal insufficiency (Chronic) Morbid obesity with BMI of 40.0-44.9, adult (Chronic) Osteoarthritis (Chronic) Hypothyroidism (Chronic) Gout (Chronic) CKD (chronic kidney disease) stage 3, GFR 30-59 ml/min (Chronic) Medical History: Medical History (Last Updated 04/20/18 @ 08:39 by Pearl Vickers) Essential hypertension (Chronic) I10 GI bleed (Acute) K92.2 NSTEMI (non-ST elevated myocardial infarction) (Acute) I21.4 Chronic renal insufficiency (Chronic) N18.9 Macrocytic anemia (Acute) D53.9 Morbid obesity with BMI of 40.0-44.9, adult (Chronic) E66.01, Z68.41 Osteoarthritis (Chronic) M19.90 Hypothyroidism (Chronic) E03.9 Gout (Chronic) M10.9 Hyperkalemia (Acute) E87.5 Sepsis (Acute) A41.9 CKD (chronic kidney disease) stage 3, GFR 30-59 ml/min (Chronic) N18.3 Cellulitis (Acute) L03.90 HTN (hypertension) (Inactive) I10 Allergies atorvastatin [From Lipitor] Adverse Reaction (Verified 05/10/18 09:52) MUSCLE PAIN Home Medications: Ambulatory Orders Medication Instructions Recorded Allopurinol [Zyloprim] 300 mg PO DAILY 03/28/18 Fluoxetine HCl 40 mg PO DAILY 03/28/18 Levothyroxine Sodium [Synthroid] 125 mcg PO DAILY 03/28/18 Acetaminophen [Tylenol] 650 mg PO Q6H PRN PRN 07/08/18 Albuterol Aerosols [Ventolin 2.5 mg INHALATION Q2H PRN PRN 07/08/18 Aerosols] Apixaban [Eliquis] 5 mg PO BID 07/08/18 Ascorbic Acid 500 mg PO BID 07/08/18 Aspirin E.C. [Ecotrin] 81 mg PO DAILY 07/08/18 Atorvastatin Calcium [Lipitor] 40 mg PO QHS 07/08/18 Bisacodyl 10 mg RC DAILY PRN 07/08/18 Colchicine 0.6 mg PO DAILY 07/08/18 Ferrous Sulfate 325 mg PO BID 07/08/18 Furosemide 40 mg PO DAILY 07/08/18 Gabapentin [Neurontin] 300 mg PO TID 07/08/18 Ipratropium/Albuterol Sulfate 3 ml IH 5X/DAY 07/08/18 [Iprat-Albut 0.5-3(2.5) mg/3 ml] Lactobacillus Acidophilus 1 tablet PO BID 07/08/18 [Acidophilus] Melatonin 3 mg PO QHS PRN 07/08/18 Metoprolol Tartrate [Lopressor 12.5 mg PO TID 07/08/18 (beta av)] Oxycodone HCl/Acetaminophen 1 each PO Q6H PRN 07/08/18 [Oxycodone-Acetaminophen 5-325] Pantoprazole Sodium [Protonix] 40 mg PO DAILY 07/08/18 Polyethylene Glycol 3350 [Miralax] 17 gm PO DAILY PRN 07/08/18 Senna/Docusate Sodium [Senokot-S, 1 tablet PO DAILY PRN 07/08/18 Kimi-Colace] Tamsulosin HCl 0.4 mg PO DAILY 07/08/18 Furosemide 40 mg PO BIDCM #60 tablet 07/18/18 Oxycodone [Oxyfast] 5 mg PO DAILY PRN #30 ml 07/18/18 Oxycodone [Oxyir] 5 mg PO DAILY PRN #30 tab 07/18/18 Surgical History: Surgical History (Last Updated 04/20/18 @ 08:41 by Pearl Vickers) History of bilateral hip replacements Z96.643 S/P bilateral foot surgery Z98.890 Surgical History: coronary bypass surgery - x 2., total hip arthroplasty - Bilateral., - - bilateral foot surgeries. Psychiatric History: Depression Lives: Spouse/ Significant Other Smoking Status: Former smoker Tobacco Use: Non-smoker Alcohol: None Drugs: None - *Family History Maternal Family History: Family History (Last Updated 04/20/18 @ 08:41 by Pearl Vickers) Father Cancer History Items: No pertinent history Paternal Family History: Family History (Last Updated 04/20/18 @ 08:41 by Pearl Vickers) Father Cancer History Items: Cancer - Tobacco user, lung cancer diagnosis. Capacity - Capacity Assessment Tool Can the patient make a choice & communicate that choice?: Yes Can the patient understand benefits, risks and alternatives?: Yes Can the patient make a logical, rational choice?: Yes Is the choice the patient makes consistent w/ their values?: Yes Is there an impending, emergent risk to the patient?: No Does the patient have an Advance Directive?: No Is there a Surrogate Available?: Yes i.e. HCPOA: Yes i.e. close relative (spouse, child, parent, sibling)?: Yes Review of Systems Constitutional: Denies: Chills, Fever, Weight Change HEENT: Denies: Head Aches, Sinus Congestion, Sinus Drainage Cardiovascular: Denies: Chest Pain, Palpitations Respiratory: Reports: Cough, Shortness of Breath, Shortness of breath upon exertion, Sputum production, Wheezing. Denies: Shortness of breath at rest Gastrointestinal: Denies: Abdominal Pain, Nausea, Vomiting Genitourinary: Denies: Dysuria Musculoskeletal: Denies: Joint Pain, Joint Tenderness Skin: Denies: Rash, Wounds Neurological: Denies: Numbness, Tingling, Focal weakness Psychiatric: Denies: Anxiety, Depression, Homicidal Ideations, Suicidal Ideations Hematologic/ Lymphatic: Denies: Easy Bruising, Easy Bleeding Patient Problems: Active and Suspected Problems (Last Updated 04/20/18 @ 08:39 by Pearl Vickers) Healthcare associated bacterial pneumonia (Acute) Atrial flutter (Acute) Acute blood loss anemia (Acute) - Physical Exam General: Alert, Oriented x3, Cooperative HEENT: Atraumatic, PERRLA, EOMI, Normocephalic Neck: Supple, No JVD, Negative Carotid Bruits Lungs: Diminished, Rales, Rhonchi, Wheezes Cardiovascular: Regular rate, No murmurs Abdomen: Bowel Sounds Present, Soft, Non Tender Extremities: No edema, Capillary Refill Less than 3 Seconds Skin: No rashes, No breakdown Musculoskeletal: No Tenderness to Palpation of Joints or Extremities Neurological: Cranial nerves II-XII grossly intact Psych/Mental Status: Normal Affect, Appropriate Vital Signs Temp Pulse Resp BP Pulse Ox 98.1 F 74 20 H 117/62 90 07/19/18 15:58 07/19/18 18:39 07/19/18 15:58 07/19/18 18:39 07/19/18 15:58 Oxygen Flow Rate (L/min) 3 Oxygen Delivery Method Nasal Cannula Weight: 130.238 kg Body Mass Index (BMI) 45.8 Finger Stick Blood Glucose 119 Intake and Output for Last 24 Hours 07/17/18 07/18/18 07/19/18 23:59 23:59 23:59 Intake Total 1249 / 1249 1440 / 1440 720 / 720 Output Total 140 / 140 Balance 1249 / 1249 1300 / 1300 720 / 720 Assessment/Plan All Active Problems (Last Updated 04/20/18 @ 08:39 by Pearl Vickers) Healthcare associated bacterial pneumonia (Acute) Atrial flutter (Acute) Acute blood loss anemia (Acute) Chest pain (Acute) GI bleed (Acute) NSTEMI (non-ST elevated myocardial infarction) (Acute) Macrocytic anemia (Acute) Hyperkalemia (Acute) Sepsis (Acute) Cellulitis (Acute) 82 year old male with below past medical history hospitalized at [facility], 06/23/2018, underwent CABG x 2, post-operative course complicated by polymicrobial pneumonia, anemia requiring transfusion, paroxysmal atrial flutter, acute kidney injury, admitted to TCU with debility, here for rehabilitation, strengthening, prior to discharge home with spouse. * Hospital Acquired pneumonia - Chest X-ray showed bibasilar atelectasis, Finished Cefepime 2GM IV Q8H x 7 days. * Bibasilar atelectasis - Albuterol 2.5MG Q2H PRN, Duoneb nebulized Q6H, Incentive Spirometry, VEST therapy, Mucomyst 800MG nebulized Q8H added. I told resident he needs to take deep breaths, cough up sputum, reexpand his lungs, to prevent further lung issues. * Bronchiectasis - Resident states he was coughing up sputum prior to CABG, in which case he may have chronic bronchiectasis, treatment same as above.
[2018-07-19] MEDS: Atorvastatin Calcium 40 MG Tablet PO (20:49)
[2018-07-19] MEDS: Albuterol 2.5 MG/3 ML VIAL.NEB. INHALATION (23:11)
[2018-07-20] VITALS (7 sets, daily range): BP systolic 109–131; BP diastolic 61–80; PULSE 86–94; RESP 18–20; TEMP 36.3; O2SAT 86–96
[2018-07-20] MEDS: APIXABAN 2.5 MG TABLET PO ×2 (05:32→17:47)
[2018-07-20] MEDS: Metoprolol Tartrate 25 MG Tablet 6.25 MG PO ×2 (05:32→17:47)
[2018-07-20] MEDS: Levothyroxine 125 MCG Tablet PO (05:33)
[2018-07-20] MEDS: Pantoprazole Sodium 40 MG Tablet PO (05:33)
[2018-07-20] MEDS: Furosemide 40 MG Tablet PO (05:33)
[2018-07-20] MEDS: Menthol/Lanolin/Calamine/Znox 113 GM Tube 1 APPLIC TOPICAL ×2 (05:36→14:30)
[2018-07-20] MEDS: oxyCODONE 5 MG Tablet PO ×3 (05:38→17:50)
[2018-07-20] MEDS: Ipratropium/Albuterol Sulfate 3 ML AMPUL.NEB INHALATION ×3 (07:13→19:15)
[2018-07-20] MEDS: Senna/Docusate Sodium 1 Tablet 2 TABLET PO (08:53)
[2018-07-20] MEDS: FLUoxetine 20 MG Capsule 40 MG PO (08:53)
[2018-07-20] MEDS: Iron Polysaccharide Complex 150 MG CAPSULE PO ×2 (08:54→17:47)
[2018-07-20] MEDS: Acetaminophen 500 MG Tablet 1000 MG PO (08:54)
[2018-07-20] MEDS: Aspirin E.C. 81 MG Tablet PO (08:54)
[2018-07-20] MEDS: Allopurinol 300 MG Tablet PO (08:59)
--- NOTE | 2018-07-20 13:31 | MDS.RN ---
Information for the mds was obtained from review of the clinical record, interview of resident, staff, and direct observation of resident's care.
--- NOTE | 2018-07-20 13:34 | MDS.RN ---
Pain interview for evelyn 07/22/18 completed.
[2018-07-20] MEDS: Acetylcysteine 800 MG/4 ML VIAL.NEB. INHALATION (14:32)
[2018-07-20] MEDS: Tamsulosin HCl 0.4 MG Capsule PO (17:47)
[2018-07-20] MEDS: Atorvastatin Calcium 40 MG Tablet PO (19:58)
[2018-07-21 05:45] VITALS: BP 123/76; PULSE 90
[2018-07-21] MEDS: Metoprolol Tartrate 25 MG Tablet 6.25 MG PO ×2 (05:45→17:01)
[2018-07-21] MEDS: Menthol/Lanolin/Calamine/Znox 113 GM Tube 1 APPLIC TOPICAL ×2 (05:45→17:01)
[2018-07-21] MEDS: Pantoprazole Sodium 40 MG Tablet PO (05:45)
[2018-07-21] MEDS: Levothyroxine 125 MCG Tablet PO (05:45)
[2018-07-21] MEDS: APIXABAN 2.5 MG TABLET PO ×2 (05:45→17:00)
[2018-07-21] MEDS: Furosemide 40 MG Tablet PO (05:45)
[2018-07-21 06:28] VITALS: PULSE 89; RESP 20; O2SAT 93
[2018-07-21] MEDS: Ipratropium/Albuterol Sulfate 3 ML AMPUL.NEB INHALATION ×2 (06:28→19:44)
[2018-07-21] MEDS: Polyethylene Glycol 3350 17 GM PACKET PO (08:10)
[2018-07-21] MEDS: FLUoxetine 20 MG Capsule 40 MG PO (08:11)
[2018-07-21] MEDS: Senna/Docusate Sodium 1 Tablet 2 TABLET PO (08:11)
[2018-07-21] MEDS: Allopurinol 300 MG Tablet PO (08:11)
[2018-07-21] MEDS: Iron Polysaccharide Complex 150 MG CAPSULE PO ×2 (08:11→17:00)
[2018-07-21] MEDS: Aspirin E.C. 81 MG Tablet PO (08:11)
[2018-07-21] MEDS: oxyCODONE 5 MG Tablet PO ×3 (08:15→21:29)
[2018-07-21 15:14] VITALS: BP 118/66; PULSE 93; RESP 20; TEMP 37.1; O2SAT 93
[2018-07-21 16:43] VITALS: PULSE 83; RESP 20; O2SAT 94
[2018-07-21] MEDS: Tamsulosin HCl 0.4 MG Capsule PO (17:00)
[2018-07-21 17:01] VITALS: PULSE 93
[2018-07-21 19:44] VITALS: PULSE 89; RESP 18
[2018-07-21] MEDS: Atorvastatin Calcium 40 MG Tablet PO (21:29)
[2018-07-22] MEDS: Menthol/Lanolin/Calamine/Znox 113 GM Tube 1 APPLIC TOPICAL ×2 (05:20→16:50)
[2018-07-22] MEDS: oxyCODONE 5 MG Tablet PO (05:20)
--- NOTE | 2018-07-22 05:20 | NURSING ---
PT C/O LEFT WRIST/KNUCKLE PAIN. PT'S WRIST NOTED TO APPEAR STIFF PT WAS ATTEMPTING TO BEND IT, KNUCKLES HAD ERYTHEMA NOTED AND SWOLLEN. PT STATED IT FEELS LIKE GOUT PAIN THAT I GET EVERY NOW AND THEN, BUT I DON'T HAVE MY MEDICINE FOR IT. WILL UPDATE DR CARBALLO.
[2018-07-22 05:21] VITALS: BP 137/84; PULSE 87
[2018-07-22] MEDS: Furosemide 40 MG Tablet PO (05:21)
[2018-07-22] MEDS: Metoprolol Tartrate 25 MG Tablet 6.25 MG PO ×2 (05:21→16:48)
[2018-07-22] MEDS: Pantoprazole Sodium 40 MG Tablet PO (05:21)
[2018-07-22] MEDS: APIXABAN 2.5 MG TABLET PO ×2 (05:21→16:49)
[2018-07-22] MEDS: Levothyroxine 125 MCG Tablet PO (05:21)
--- NOTE | 2018-07-22 06:00 | RAD_ITS ---
STUDY: X-RAY CHEST REASON FOR EXAM: Male, 82 years old. Post CABG TECHNIQUE: Frontal and lateral views COMPARISON: July 18, 2018 FINDINGS: Stable sternotomy wires. The lungs are expanded. Bibasilar atelectasis. Stable left calcified granuloma. Trace effusion or pleural thickening blunting the left costophrenic angle. Normal size heart. Normal mediastinum and joey. Normal visualized pulmonary arteries. Calcified tortuous aortic arch and descending thoracic aorta. Degenerative changes of the thoracic spine. Normal visualized ribs, clavicles, and shoulders. There is no demonstrated abnormality of the visualized soft tissue structures of the upper abdomen. RAD/Chest PA and Lateral IMPRESSION: Bibasilar atelectasis. Left calcified granuloma. Trace effusion or pleural thickening at the left costophrenic angle. Electronically Signed: Case Talamantes DO at 9:33 EST Tel [phone], Service support ,
[2018-07-22] MEDS: Allopurinol 300 MG Tablet PO (07:49)
[2018-07-22] MEDS: FLUoxetine 20 MG Capsule 40 MG PO (07:49)
[2018-07-22] MEDS: Aspirin E.C. 81 MG Tablet PO (07:49)
[2018-07-22] MEDS: Iron Polysaccharide Complex 150 MG CAPSULE PO ×2 (07:49→16:49)
[2018-07-22 08:03] VITALS: PULSE 90; RESP 18; O2SAT 88
[2018-07-22] MEDS: Ipratropium/Albuterol Sulfate 3 ML AMPUL.NEB INHALATION ×2 (08:03→19:23)
[2018-07-22 08:16] VITALS: O2SAT 94
--- NOTE | 2018-07-22 11:43 | NURSING ---
medication ordered for pt's gout flare up
[2018-07-22] MEDS: MethylPREDNISolone DosePak 4 MG BOX PO ×3 (11:57→20:16)
[2018-07-22 15:38] VITALS: BP 121/63; PULSE 86; RESP 18; TEMP 37.3; O2SAT 94
[2018-07-22 16:48] VITALS: BP 121/63; PULSE 86
[2018-07-22] MEDS: Tamsulosin HCl 0.4 MG Capsule PO (16:49)
[2018-07-22 19:23] VITALS: PULSE 83; RESP 18
[2018-07-22] MEDS: Atorvastatin Calcium 40 MG Tablet PO (20:16)
[2018-07-23] VITALS (7 sets, daily range): BP systolic 109–141; BP diastolic 50–81; PULSE 86–96; RESP 16–20; TEMP 36.7; O2SAT 93–96
[2018-07-23] MEDS: Furosemide 40 MG Tablet PO (05:52)
[2018-07-23] MEDS: Levothyroxine 125 MCG Tablet PO (05:52)
[2018-07-23] MEDS: APIXABAN 2.5 MG TABLET PO ×2 (05:53→17:29)
[2018-07-23] MEDS: Metoprolol Tartrate 25 MG Tablet 6.25 MG PO ×2 (05:53→17:29)
[2018-07-23] MEDS: Pantoprazole Sodium 40 MG Tablet PO (05:54)
[2018-07-23] MEDS: Menthol/Lanolin/Calamine/Znox 113 GM Tube 1 APPLIC TOPICAL ×2 (05:59→17:34)
[2018-07-23] MEDS: Ipratropium/Albuterol Sulfate 3 ML AMPUL.NEB INHALATION ×3 (07:35→19:55)
[2018-07-23 07:38] LABS: Absolute Lymphocyte Count 0.75 X10^3/ul (0.83-4.51); Absolute Neutrophil Count 8.1 X10^3/uL (2.0-7.7); Basophil# 0.04 X10^3/uL; Basophil% 0.4 % (0-1); Eosinophil# 0.02 X10^3/uL; Eosinophils% 0.2 % (0-5); Hematocrit 35.9 % (40-54); Hemoglobin 10.9 g/dl (13.0-16.5); Lymphocyte # 0.75 X10^3/ul (4.0); Lymphocyte % 7.8 % (19-41); Mean Corp Hgb Conc 30.4 g/gl (32-36); Mean Corpuscular Hgb 29.6 pg (27.0-32.0); Mean Corpuscular Volume 97.6 fL (80-94); Mean Platelet Vol. 11.1 fl (6.2-12.0); Monocyte# 0.54 X10^3/uL; Monocyte% 5.6 % (0-10); Neutrophil # 8.07 X10^3/uL (2.7-7.7); Neutrophil % 83.6 % (47-70); Platelet Count 171 K/mm3 (150-450); RBC Distribution Width CV 17.1 % (11.6-14.6); RBC Distribution Width SD 57.7 fl (35.1-43.9); Red Blood Count 3.68 M/mm3 (4.6-6.2); White Blood Count 9.7 K/mm3 (4.4-11.0)
[2018-07-23 07:39] LABS: POSITIVE COUNT YES; POSITIVE DIFFERENTIAL NO; POSITIVE MORPHOLOGY YES
[2018-07-23 07:44] LABS: Anion Gap 8 (5-15); BUN 44 mg/dL (7-18); BUN/Creat Ratio 30.8 RATIO (10-20); Chloride 103 mmol/L (98-107); Creatinine, Serum 1.43 mg/dL (0.70-1.30); EST Glomerular Filtration Rate 50 mL/min (>60); Est Glom Filt Rate - Afr Amer 61 mL/min (>60); Estimated Creatinine Clearance 40.51 ml/min; Glucose 150 mg/dL (74-106); Potassium 4.2 mmol/L (3.5-5.1); Sodium Level 140 mmol/L (136-145)
[2018-07-23] MEDS: Aspirin E.C. 81 MG Tablet PO (07:46)
[2018-07-23] MEDS: FLUoxetine 20 MG Capsule 40 MG PO (07:46)
[2018-07-23] MEDS: MethylPREDNISolone DosePak 4 MG BOX PO ×4 (07:47→20:08)
[2018-07-23] MEDS: Iron Polysaccharide Complex 150 MG CAPSULE PO ×2 (07:47→17:29)
[2018-07-23] MEDS: Allopurinol 300 MG Tablet PO (07:48)
[2018-07-23] MEDS: oxyCODONE 5 MG Tablet PO ×2 (11:20→21:50)
[2018-07-23] MEDS: Tamsulosin HCl 0.4 MG Capsule PO (17:29)
[2018-07-23] MEDS: Atorvastatin Calcium 40 MG Tablet PO (20:09)
[2018-07-24] MEDS: Menthol/Lanolin/Calamine/Znox 113 GM Tube 1 APPLIC TOPICAL ×2 (06:22→16:59)
[2018-07-24 06:23] VITALS: BP 128/78; PULSE 93
[2018-07-24] MEDS: APIXABAN 2.5 MG TABLET PO ×2 (06:23→16:59)
[2018-07-24] MEDS: Metoprolol Tartrate 25 MG Tablet 6.25 MG PO ×2 (06:23→17:00)
[2018-07-24] MEDS: Levothyroxine 125 MCG Tablet PO (06:23)
[2018-07-24] MEDS: Furosemide 40 MG Tablet PO (06:23)
[2018-07-24] MEDS: Pantoprazole Sodium 40 MG Tablet PO (06:23)
[2018-07-24 06:32] VITALS: PULSE 98; RESP 20; O2SAT 97
[2018-07-24] MEDS: Ipratropium/Albuterol Sulfate 3 ML AMPUL.NEB INHALATION (06:32)
[2018-07-24] MEDS: oxyCODONE 5 MG Tablet PO (08:37)
[2018-07-24] MEDS: Iron Polysaccharide Complex 150 MG CAPSULE PO ×2 (08:38→16:59)
[2018-07-24] MEDS: MethylPREDNISolone DosePak 4 MG BOX PO ×4 (08:38→22:42)
[2018-07-24] MEDS: Aspirin E.C. 81 MG Tablet PO (08:39)
[2018-07-24] MEDS: FLUoxetine 20 MG Capsule 40 MG PO (08:39)
[2018-07-24] MEDS: Allopurinol 300 MG Tablet PO (08:40)
--- NOTE | 2018-07-24 12:11 | NURSING ---
Addendum entered by Neva Washburn 07/24/18 15:45: pt returned from appt, orders to cont monitoring daily weight, make sure to wear stockings & vest during day, off at hs. Return in 2-3 wks with CXR prior, continue lasix daily. Notfi[facility] Dr Wilkes office when pt to be DC'd. Original Note: 1030 pt left for appt in [place] with & son.
[2018-07-24 15:42] VITALS: BP 151/84; PULSE 81; RESP 18; TEMP 36.8; O2SAT 95
[2018-07-24] MEDS: Tamsulosin HCl 0.4 MG Capsule PO (16:59)
[2018-07-24 17:00] VITALS: PULSE 81
[2018-07-24] MEDS: Atorvastatin Calcium 40 MG Tablet PO (19:45)
[2018-07-25] MEDS: Menthol/Lanolin/Calamine/Znox 113 GM Tube 1 APPLIC TOPICAL ×2 (05:26→17:19)
[2018-07-25] MEDS: Levothyroxine 125 MCG Tablet PO (05:26)
[2018-07-25 05:27] VITALS: BP 118/57; PULSE 89
[2018-07-25] MEDS: Metoprolol Tartrate 25 MG Tablet 6.25 MG PO ×2 (05:27→17:22)
[2018-07-25] MEDS: APIXABAN 2.5 MG TABLET PO ×2 (05:27→17:45)
[2018-07-25] MEDS: Furosemide 40 MG Tablet PO (05:27)
[2018-07-25] MEDS: Pantoprazole Sodium 40 MG Tablet PO (05:28)
[2018-07-25 06:40] VITALS: PULSE 84; RESP 18; O2SAT 94
[2018-07-25] MEDS: Ipratropium/Albuterol Sulfate 3 ML AMPUL.NEB INHALATION (06:40)
[2018-07-25] MEDS: Iron Polysaccharide Complex 150 MG CAPSULE PO ×2 (07:53→17:19)
[2018-07-25] MEDS: Aspirin E.C. 81 MG Tablet PO (07:53)
[2018-07-25] MEDS: Allopurinol 300 MG Tablet PO (07:53)
[2018-07-25] MEDS: MethylPREDNISolone DosePak 4 MG BOX PO ×3 (07:54→20:43)
[2018-07-25] MEDS: FLUoxetine 20 MG Capsule 40 MG PO (07:55)
[2018-07-25] MEDS: oxyCODONE 5 MG Tablet PO ×2 (07:58→20:43)
--- NOTE | 2018-07-25 10:34 | NURSING ---
NO to D/C mucomyst and duoneb nebs.
[2018-07-25 11:00] VITALS: PULSE 93; RESP 18; O2SAT 93
[2018-07-25 13:17] LABS: Pathologist Review Reviewed
--- NOTE | 2018-07-25 14:09 | NURSING ---
In to reassess the shearing to the buttocks. pt is currently in therapy.
[2018-07-25 15:30] VITALS: BP 118/66; PULSE 90; RESP 20; TEMP 36.8; O2SAT 93
--- NOTE | 2018-07-25 17:02 | CASEMGMT ---
Social Work Spoke with resident in room. Resident requesting to discharge to home on 07/28/18. Team is agreeable to discharge date. Resident plans to discharge to home with spouse. This social service manager communicating that physical and occupational therapy along with nursing are recommending for resident to have continued services within the home. Resident agreeable to recommendation and reporting that [facility] already has a referral from resident surgeon and that resident spouse will contact to ensure that [facility] is aware of discharge date. Resident reporting to need a walker at time of discharge. Resident does not have a preference of [employer] equipment [employer], [email or web address] to be utilized. Resident family plans to provide transportation home for resident at time of discharge. Resident voicing no further needs. Per nursing technician is now down to 1L of oxygen and will not need home oxygen. Support given. Will fax order for walker to [email or web address] when obtained. Proposed discharge date: 07/28/18 PLAN: Discharge to home with spouse and home health care. Kenton CHAUDHARI, STEPHEN
[2018-07-25] MEDS: Tamsulosin HCl 0.4 MG Capsule PO (17:19)
[2018-07-25 17:22] VITALS: PULSE 80
--- NOTE | 2018-07-25 17:34 | CASEMGMT ---
Social Work Order for walker faxed to [facility] [place], [place] along with supportive documentation. [facility] [place] [place] to deliver walker to resident room prior to discharge. Proposed discharge date: 07/28/18 PLAN: Discharge to home with spouse and home health care. Kenton CHAUDHARI, STEPHEN
--- NOTE | 2018-07-25 18:23 | NURSING ---
Dr. Fabian sent fax to notify Dr. West of elevated WBC, Dr. West reviewed, NNO.
[2018-07-25] MEDS: Atorvastatin Calcium 40 MG Tablet PO (20:43)
--- NOTE | 2018-07-25 21:40 | PCM.DC ---
- Discharge Diagnoses Current Active Problems: Current Active and Chronic Problems (Last Updated 04/20/18 @ 08:39 by Pearl Vickers) Healthcare associated bacterial pneumonia (Acute) Atrial flutter (Acute) NSTEMI (non-ST elevated myocardial infarction) (Chronic) Coronary artery disease (Chronic) Acute blood loss anemia (Acute) Dizziness (Chronic) Depression (Chronic) GERD (gastroesophageal reflux disease) (Chronic) Chronic kidney disease (Chronic) Hypertension (Chronic) You will use the following diet at home:: No restrictions, Regular Your food should be the consistency of: Regular Your liquids should be the consistency of: Regular/Thin Discharge Activity: Return to Normal Activity, May Shower, Use Walker May resume sexual activity in: 6 weeks Weight Bearing Status: Weight bearing as tolerated Call your doctor if you observe: Fever of 101 or Higher, Inability to urinate, Inability to have a bowel movement, Shortness of breath, Chest pain, Uncontrolled pain Allergies/Adverse Reactions: Allergies atorvastatin [From Lipitor] Adverse Reaction (Verified 05/10/18 09:52) MUSCLE PAIN Medications to take at Discharge Allopurinol [Zyloprim] 300 mg PO DAILY 03/28/18 Fluoxetine HCl 40 mg PO DAILY 03/28/18 Levothyroxine Sodium [Synthroid] 125 mcg PO DAILY 03/28/18 Aspirin E.C. [Ecotrin] 81 mg PO DAILY 07/08/18 Furosemide 40 mg PO DAILY 07/08/18 Lactobacillus Acidophilus [Acidophilus] 1 tab PO BID 07/08/18 Pantoprazole Sodium [Protonix] 40 mg PO DAILY 07/08/18 Acetaminophen [Tylenol] 1,000 mg PO Q6H PRN tablet 07/25/18 Albuterol Aerosols [Ventolin Aerosols] 2.5 mg INHALATION Q2H PRN PRN #100 vial.neb. 07/25/18 Apixaban [Eliquis] 2.5 mg PO BID #60 tablet 07/25/18 Atorvastatin Calcium [Lipitor] 40 mg PO QHS #30 tablet 07/25/18 Furosemide [Lasix] 40 mg PO DAILY #30 tablet 07/25/18 Iron Polysaccharide Complex [Ferrex 150] 150 mg PO BIDCM #60 capsule 07/25/18 Melatonin 3 mg PO QHS PRN #30 tablet 07/25/18 Menthol/Lanolin/Calamine/Znox [Calmoseptine Ointment] 1 applic TOPICAL BID tube 07/25/18 Metoprolol Tartrate [Lopressor (beta va)] 12.5 mg PO TID #60 tablet 07/25/18 Oxycodone [Oxyir] 5 mg PO Q4H PRN 7 Days #30 tab 07/25/18 Pantoprazole Sodium [Protonix] 40 mg PO DAILY #30 tablet 07/25/18 Polyethylene Glycol 3350 [Miralax] 17 gm PO DAILY PRN #30 packet 07/25/18 Tamsulosin HCl [Flomax] 0.4 mg PO DAILY@1730 #30 capsule 07/25/18 The following prescriptions were given: Albuterol Aerosols [Ventolin Aerosols] 2.5 mg INHALATION Q2H PRN PRN #100 vial.neb. PRN Reason: Sob &/Or Wheezing Atorvastatin Calcium [Lipitor] 40 mg PO QHS #30 tablet Furosemide [Lasix] 40 mg PO DAILY #30 tablet Melatonin 3 mg PO QHS PRN #30 tablet PRN Reason: Insomnia Oxycodone [Oxyir] 5 mg PO Q4H PRN 7 Days #30 tab PRN Reason: Moderate Pain (4-5/10) Pantoprazole Sodium [Protonix] 40 mg PO DAILY #30 tablet Polyethylene Glycol 3350 [Miralax] 17 gm PO DAILY PRN #30 packet PRN Reason: Constipation Tamsulosin HCl [Flomax] 0.4 mg PO DAILY@1730 #30 capsule Apixaban [Eliquis] 2.5 mg PO BID #60 tablet Iron Polysaccharide Complex [Ferrex 150] 150 mg PO BIDCM #60 capsule Metoprolol Tartrate [Lopressor (beta av)] 12.5 mg PO TID #60 tablet Primary Care Physician: Alexandro Lovell MD [Primary Care Provider] - Please follow up with your Primary Care Physician in: 1 week. Test Results: Test results from this visit will be discussed in further detail at your follow-up appointment, if applicable. Please Follow Up With: [facility] vascular dept When: [place] Location Please Follow Up With: Dr Lovell When: 1 week. 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
--- NOTE | 2018-07-25 21:42 | PCM.DC.SUM ---
Discharge Date and Diagnosis - Problem List Patient Problems: Active and Suspected Problems (Last Updated 04/20/18 @ 08:39 by Pearl Vickers) Healthcare associated bacterial pneumonia (Acute) Atrial flutter (Acute) Acute blood loss anemia (Acute) Date of Admission: 07/08/18 Date of Discharge: 07/28/18 - Primary Discharge Diagnosis Active and Suspected Problems (Last Updated 04/20/18 @ 08:39 by Pearl Vickers) Healthcare associated bacterial pneumonia (Acute) Atrial flutter (Acute) Acute blood loss anemia (Acute) - Secondary Discharge Diagnosis Chronic Problems (Last Updated 04/20/18 @ 08:39 by Pearl Vickers) 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) TANNER to LAD, SVG to OM @ [facility] 06/23/18 NSTEMI (non-ST elevated myocardial infarction) (Chronic) Coronary artery disease (Chronic) Dizziness (Chronic) Depression (Chronic) GERD (gastroesophageal reflux disease) (Chronic) Chronic kidney disease (Chronic) Hypertension (Chronic) Atherosclerotic heart disease of [place] coronary artery without angina pectoris (Chronic) Essential hypertension (Chronic) Chronic renal insufficiency (Chronic) Morbid obesity with BMI of 40.0-44.9, adult (Chronic) Osteoarthritis (Chronic) Hypothyroidism (Chronic) Gout (Chronic) CKD (chronic kidney disease) stage 3, GFR 30-59 ml/min (Chronic) Hospital Course and Treatment Imaging Results: 07/08/18 18:37 Diet: Cardiac/Low Cholesterol Dietary Modifications:: Fluid Restricted Diet Diet Comments: 2000ml, Low Sodium Clinical Impression(s) from Imaging Studies KUB X-Ray 07/11/18 20:19 IMPRESSION: Nonspecific bowel gas pattern. Electronically Signed: Samir Baldwin DO at 21:20 EST Tel [phone], Service support , Chest X-Ray 07/22/18 06:00 IMPRESSION: Bibasilar atelectasis. Left calcified granuloma. Trace effusion or pleural thickening at the left costophrenic angle. Electronically Signed: Case Talamantes DO at 9:33 EST Tel [phone], Service support , Labs (Last 48 Hours) 07/23/18 07:05 Diff Path Review Reviewed Consultations 07/16/18 20:07 Consult: Onc/Wound/day care director Routine Comment: Reason for Consult:: Coccyx Comments:: Exoriated moisture related area Operations: None Procedures: None Summary of Care Provided: The patient is a 82 year old Male with below past medical history hospitalized at [facility], 06/23/2018, underwent CABG x 2, post-operative course complicated by polymicrobial pneumonia, anemia requiring transfusion, paroxysmal atrial flutter, acute kidney injury, admitted to TCU with debility, here for rehabilitation, strengthening, prior to discharge home with spouse. Discharge home with spouse, and Home Health Care. Patient Problems: Active and Suspected Problems (Last Updated 04/20/18 @ 08:39 by Pearl Vickers) Healthcare associated bacterial pneumonia (Acute) Atrial flutter (Acute) Acute blood loss anemia (Acute) - Physical Exam Vital Signs Temp Pulse Resp BP Pulse Ox 98.3 F 80 20 H 118/66 93 07/25/18 15:30 07/25/18 17:22 07/25/18 15:30 07/25/18 15:30 07/25/18 15:30 Oxygen Flow Rate (L/min) 1 Oxygen Delivery Method Room Air Weight: 126.694 kg Body Mass Index (BMI) 45.8 Finger Stick Blood Glucose 119 Orthostatic Vital Signs Start: 07/20/18 13:32 Freq: q24h Status: Active Protocol: Activity Type Activity Date Activity User E-Sign Co-Sign Detail Recorded Client Recorded Date Recorded By Document 07/20/18 13:32 MJM [id number] 07/20/18 13:33 MJM 07/20/18 13:32 Orthostatic Vitals Standing -Blood Pressure (90/60-120/80) 109/80 -Extremity Use Left Arm -Pulse Rate (60-100) 93 Sitting -Blood Pressure (90/60-120/80) 121/75 H -Extremity Use Left Arm -Pulse Rate (60-100) 92 Lying -Blood Pressure (90/60-120/80) 113/65 -Extremity Use Left Arm -Pulse Rate (60-100) 90 Intake and Output for Last 24 Hours 07/23/18 07/24/18 07/25/18 23:59 23:59 23:59 Intake Total 880 / 880 480 / 480 Output Total 1050 / 1050 600 / 600 Balance -170 / -170 -120 / -120 Laboratory Tests Past 24 Hrs 07/23/18 07:05 Diff Path Review Reviewed Discharge Diet: No Restrictions Discharge Activity: Return to Normal Activity, May Shower, Use Walker May resume sexual activity in: 6 weeks Weight Bearing Status: Weight bearing as tolerated Call your doctor if you observe: Fever of 101 or Higher, Inability to urinate, Inability to have a bowel movement, Shortness of breath, Chest pain, Uncontrolled pain Home Medications: Medications to take at Discharge Allopurinol [Zyloprim] 300 mg PO DAILY 03/28/18 Fluoxetine HCl 40 mg PO DAILY 03/28/18 Levothyroxine Sodium [Synthroid] 125 mcg PO DAILY 03/28/18 Aspirin E.C. [Ecotrin] 81 mg PO DAILY 07/08/18 Furosemide 40 mg PO DAILY 07/08/18 Lactobacillus Acidophilus [Acidophilus] 1 tab PO BID 07/08/18 Pantoprazole Sodium [Protonix] 40 mg PO DAILY 07/08/18 Acetaminophen [Tylenol] 1,000 mg PO Q6H PRN tablet 07/25/18 Albuterol Aerosols [Ventolin Aerosols] 2.5 mg INHALATION Q2H PRN PRN #100 vial.neb. 07/25/18 Apixaban [Eliquis] 2.5 mg PO BID #60 tablet 07/25/18 Atorvastatin Calcium [Lipitor] 40 mg PO QHS #30 tablet 07/25/18 Furosemide [Lasix] 40 mg PO DAILY #30 tablet 07/25/18 Iron Polysaccharide Complex [Ferrex 150] 150 mg PO BIDCM #60 capsule 07/25/18 Melatonin 3 mg PO QHS PRN #30 tablet 07/25/18 Menthol/Lanolin/Calamine/Znox [Calmoseptine Ointment] 1 applic TOPICAL BID tube 07/25/18 Metoprolol Tartrate [Lopressor (beta av)] 12.5 mg PO TID #60 tablet 07/25/18 Oxycodone [Oxyir] 5 mg PO Q4H PRN 7 Days #30 tab 07/25/18 Pantoprazole Sodium [Protonix] 40 mg PO DAILY #30 tablet 07/25/18 Polyethylene Glycol 3350 [Miralax] 17 gm PO DAILY PRN #30 packet 07/25/18 Tamsulosin HCl [Flomax] 0.4 mg PO DAILY@1730 #30 capsule 07/25/18 Following Prescrptions Were Given to Patient: Albuterol Aerosols [Ventolin Aerosols] 2.5 mg INHALATION Q2H PRN PRN #100 vial.neb. PRN Reason: Sob &/Or Wheezing Atorvastatin Calcium [Lipitor] 40 mg PO QHS #30 tablet Furosemide [Lasix] 40 mg PO DAILY #30 tablet Melatonin 3 mg PO QHS PRN #30 tablet PRN Reason: Insomnia Oxycodone [Oxyir] 5 mg PO Q4H PRN 7 Days #30 tab PRN Reason: Moderate Pain (4-09/22) Pantoprazole Sodium [Protonix] 40 mg PO DAILY #30 tablet Polyethylene Glycol 3350 [Miralax] 17 gm PO DAILY PRN #30 packet PRN Reason: Constipation Tamsulosin HCl [Flomax] 0.4 mg PO DAILY@1730 #30 capsule Apixaban [Eliquis] 2.5 mg PO BID #60 tablet Iron Polysaccharide Complex [Ferrex 150] 150 mg PO BIDCM #60 capsule Metoprolol Tartrate [Lopressor (beta av)] 12.5 mg PO TID #60 tablet Primary Care Physician: Alexandro Lovell MD [Primary Care Provider] - Please follow up with your Primary Care Physician in: 1 week. Please Follow Up With: [facility] vascular dept When: [place] Location Please Follow Up With: Dr Lovell When: 1 week. 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
--- NOTE | 2018-07-25 21:45 | HHNOTE_ITS ---
Home Health Note - Plan Overview of reason of hospitalization: The patient is a 82 year old Male with below past medical history hospitalized at [facility], 06/23/2018, underwent CABG x 2, post-operative course complicated by polymicrobial pneumonia, anemia requiring transfusion, paroxysmal atrial flutter, acute kidney injury, admitted to TCU with debility, here for rehabilitation, strengthening, prior to discharge home with spouse. Discharge home with spouse, and Home Health Care. 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) Healthcare associated bacterial pneumonia (Acute) Atrial flutter (Acute) NSTEMI (non-ST elevated myocardial infarction) (Chronic) Coronary artery disease (Chronic) Acute blood loss anemia (Acute) Dizziness (Chronic) Depression (Chronic) GERD (gastroesophageal reflux disease) (Chronic) Chronic kidney disease (Chronic) Hypertension (Chronic) Atherosclerotic heart disease of [place] coronary artery without angina pectoris (Chronic) Chest pain (Acute) Essential hypertension (Chronic) GI bleed (Acute) NSTEMI (non-ST elevated myocardial infarction) (Acute) Chronic renal insufficiency (Chronic) Macrocytic anemia (Acute) Morbid obesity with BMI of 40.0-44.9, adult (Chronic) Osteoarthritis (Chronic) Hypothyroidism (Chronic) Gout (Chronic) Hyperkalemia (Acute) Sepsis (Acute) CKD (chronic kidney disease) stage 3, GFR 30-59 ml/min (Chronic) Cellulitis (Acute) - Requirements and Reasons Disciplines Needed/Ordered: Nursing Home, Physical Therapy Reason for Disciplines: Disease Specific Monitoring/education, Medication Management/Knowledge Deficit, Gait Training, Stair Training, Fall Prevention, Home Safety/Equipment Instruction, Balance and/or Posture Training, Transfer Training Related To: Change in Medical Treatment Plan, Limited/Poor Endurance, Shortness of Breath with Activity, Physical Impairments, Fall Risk Patient is unable to leave the home: Without Aid of Supportive Devices (crutches, cane, wheelchair, walker), Without the assistance of another person - Additional Disciplines Additional Disciplines Needed/Ordered: Occupational Therapy
[2018-07-26] MEDS: Menthol/Lanolin/Calamine/Znox 113 GM Tube 1 APPLIC TOPICAL ×2 (05:26→17:23)
[2018-07-26] MEDS: APIXABAN 2.5 MG TABLET PO ×2 (05:26→17:18)
[2018-07-26 05:27] VITALS: BP 136/81; PULSE 92
[2018-07-26] MEDS: Pantoprazole Sodium 40 MG Tablet PO (05:27)
[2018-07-26] MEDS: Levothyroxine 125 MCG Tablet PO (05:27)
[2018-07-26] MEDS: Furosemide 40 MG Tablet PO (05:27)
[2018-07-26] MEDS: Metoprolol Tartrate 25 MG Tablet 6.25 MG PO ×2 (05:27→17:18)
[2018-07-26] MEDS: Acetaminophen 500 MG Tablet 1000 MG PO (05:33)
[2018-07-26] MEDS: MethylPREDNISolone DosePak 4 MG BOX PO ×2 (07:56→19:47)
[2018-07-26] MEDS: FLUoxetine 20 MG Capsule 40 MG PO (07:57)
[2018-07-26] MEDS: Allopurinol 300 MG Tablet PO (07:57)
[2018-07-26] MEDS: Iron Polysaccharide Complex 150 MG CAPSULE PO ×2 (07:57→17:18)
[2018-07-26] MEDS: Aspirin E.C. 81 MG Tablet PO (07:57)
--- NOTE | 2018-07-26 08:07 | NURSING ---
Has been refusing miralax and senna, advised about the dangers of getting constipated, he states he is having normal bowel movements and does'nt need them. Is taking OxyIR regularly during daytime.
[2018-07-26 08:50] VITALS: O2SAT 93
[2018-07-26] MEDS: oxyCODONE 5 MG Tablet PO ×2 (10:21→17:21)
--- NOTE | 2018-07-26 15:04 | CASEMGMT ---
Social Work Telephone call from Lisa at resident's surgeon's office. Lisa reporting that [facility] are unable to provided services for resident due to resident living in [place], [place]. Spoke with resident in room. This social services coordinator communicating above information. Resident requesting for home health care to be set up through [facility] ([facility]). Telephone call to [facility], Pearl. This social services coordinator making referral for physical and occupational therapy as well as snf. Order completed. Proposed discharge date: 07/28/18 PLAN: Discharge to home with spouse and home health care. Kenton CHAUDHARI, STEPHEN
[2018-07-26 15:44] VITALS: BP 112/68; PULSE 91; RESP 20; TEMP 36.3; O2SAT 98
[2018-07-26 17:18] VITALS: BP 112/68; PULSE 91
[2018-07-26] MEDS: Tamsulosin HCl 0.4 MG Capsule PO (17:18)
--- NOTE | 2018-07-26 18:40 | NURSING ---
SPO2 is 93% on RA.
[2018-07-26] MEDS: Atorvastatin Calcium 40 MG Tablet PO (19:48)
[2018-07-26 19:52] VITALS: O2SAT 94
--- NOTE | 2018-07-27 02:40 | NURSING ---
Pulse ox placed on pt at this time- 85% on RA. 2L oxygen NC placed at this time- pulse ox up to 93%.
[2018-07-27] MEDS: Acetaminophen 500 MG Tablet 1000 MG PO (04:29)
[2018-07-27 04:55] VITALS: BP 124/70; PULSE 95
[2018-07-27] MEDS: Levothyroxine 125 MCG Tablet PO (04:55)
[2018-07-27] MEDS: Pantoprazole Sodium 40 MG Tablet PO (04:55)
[2018-07-27] MEDS: Furosemide 40 MG Tablet PO (04:55)
[2018-07-27] MEDS: Metoprolol Tartrate 25 MG Tablet 6.25 MG PO ×2 (04:55→16:55)
[2018-07-27] MEDS: Menthol/Lanolin/Calamine/Znox 113 GM Tube 1 APPLIC TOPICAL ×2 (04:56→16:59)
[2018-07-27] MEDS: APIXABAN 2.5 MG TABLET PO ×2 (04:56→16:54)
[2018-07-27] MEDS: Allopurinol 300 MG Tablet PO (08:01)
[2018-07-27] MEDS: Senna/Docusate Sodium 1 Tablet 2 TABLET PO (08:01)
[2018-07-27] MEDS: Iron Polysaccharide Complex 150 MG CAPSULE PO ×2 (08:01→16:54)
[2018-07-27] MEDS: FLUoxetine 20 MG Capsule 40 MG PO (08:01)
[2018-07-27] MEDS: Aspirin E.C. 81 MG Tablet PO (08:02)
--- NOTE | 2018-07-27 08:17 | NURSING ---
CXR ordered by Dr. West for low SPO2 with activity and HS
--- NOTE | 2018-07-27 10:29 | NURSING ---
Pt saw Dr. Parker today, NNO.
[2018-07-27] MEDS: oxyCODONE 5 MG Tablet PO ×2 (10:49→19:43)
[2018-07-27 11:09] VITALS: BP 137/69; PULSE 73; RESP 18; TEMP 37.2; O2SAT 100
--- NOTE | 2018-07-27 12:05 | RAD_ITS ---
STUDY: X-RAY CHEST REASON FOR EXAM: Male, 82 years old. Chest pain and cough TECHNIQUE: 2 PA and lateral views of the chest. COMPARISON: 07/22/2018 FINDINGS: Stable sternotomy wires. The lungs are expanded. Bibasilar atelectasis. Stable left calcified granuloma. Trace effusion or pleural thickening blunting the left costophrenic angle. Normal size heart. Normal mediastinum and joey. Normal visualized pulmonary arteries. Calcified tortuous aortic arch and descending thoracic aorta. Degenerative changes of the thoracic spine. Normal visualized ribs, clavicles, and shoulders. There is no demonstrated abnormality of the visualized soft tissue structures of the upper abdomen. RAD/Chest PA and Lateral IMPRESSION: Bibasilar atelectasis. Left calcified granuloma. Trace effusion or pleural thickening at the left costophrenic angle. No interval change since the previous study Electronically Signed: Juan Hensley MD at 15:34 EDT , Service support ,
[2018-07-27 13:16] VITALS: O2SAT 93; O2SAT 94
[2018-07-27 15:11] VITALS: BP 118/74; PULSE 85; RESP 16; TEMP 37; O2SAT 90
[2018-07-27] MEDS: Tamsulosin HCl 0.4 MG Capsule PO (16:54)
[2018-07-27 16:55] VITALS: BP 118/74; PULSE 85
--- NOTE | 2018-07-27 17:52 | NURSING ---
Dr. West reviewed CXR and gave NNO.
[2018-07-27] MEDS: Atorvastatin Calcium 40 MG Tablet PO (19:43)
[2018-07-27 20:00] VITALS: O2SAT 93
--- NOTE | 2018-07-27 21:22 | NURSING ---
Pt's pulse ox 85% on RA while sleeping, placed on 1L O2 NC at this time, pulse ox now 92%. Continuing to monitor.
[2018-07-28 06:20] VITALS: BP 140/86; PULSE 75
[2018-07-28] MEDS: Metoprolol Tartrate 25 MG Tablet 6.25 MG PO (06:20)
[2018-07-28] MEDS: APIXABAN 2.5 MG TABLET PO (06:20)
[2018-07-28] MEDS: Levothyroxine 125 MCG Tablet PO (06:22)
[2018-07-28] MEDS: Furosemide 40 MG Tablet PO (06:22)
[2018-07-28] MEDS: Pantoprazole Sodium 40 MG Tablet PO (06:22)
[2018-07-28 06:43] VITALS: O2SAT 95
[2018-07-28] MEDS: FLUoxetine 20 MG Capsule 40 MG PO (07:59)
[2018-07-28] MEDS: Aspirin E.C. 81 MG Tablet PO (07:59)
[2018-07-28] MEDS: Iron Polysaccharide Complex 150 MG CAPSULE PO (07:59)
[2018-07-28] MEDS: Allopurinol 300 MG Tablet PO (07:59)
[2018-07-28] MEDS: oxyCODONE 5 MG Tablet PO (09:40)
[2018-07-28 10:28] VITALS: PULSE 95; RESP 18; O2SAT 94
[2018-07-28 11:46] VITALS: BP 104/64; PULSE 86; RESP 20; TEMP 36.7; O2SAT 92
--- NOTE | 2018-08-03 12:30 | MDS.RN ---
Information for the mds was obtained from review of the clinical record, interview of resident, staff, and direct observation of resident's care.
== END 2018-07-28 10:15 | disposition home health service (06) | DRG 947 ==
PROVIDERS: Admitting Provider Family Medicine Geriatric Medicine; Family Provider Family Medicine; PCP Family Medicine; Visit Provider Family Medicine Geriatric Medicine
DX: R53.81 Other malaise (principal); J18.9 Pneumonia, unspecified organism; Z68.41 Body mass index [BMI] 40.0-44.9, adult; D62 Acute posthemorrhagic anemia; N40.1 Benign prostatic hyperplasia with lower urinary tract symptoms; R33.8 Other retention of urine; K21.9 Gastro-esophageal reflux disease without esophagitis; E03.9 Hypothyroidism, unspecified; F32.9 Major depressive disorder, single episode, unspecified; E78.5 Hyperlipidemia, unspecified; I25.10 Atherosclerotic heart disease of native coronary artery without angina pectoris; I48.91 Unspecified atrial fibrillation; M10.9 Gout, unspecified; E54 Ascorbic acid deficiency; J44.9 Chronic obstructive pulmonary disease, unspecified; D50.9 Iron deficiency anemia, unspecified; I12.9 Hypertensive chronic kidney disease with stage 1 through stage 4 chronic kidney disease, or unspecified chronic kidney disease; N18.3 Chronic kidney disease, stage 3 (moderate); M19.90 Unspecified osteoarthritis, unspecified site; E66.01 Morbid (severe) obesity due to excess calories; Z95.1 Presence of aortocoronary bypass graft; I25.2 Old myocardial infarction; Z71.3 Dietary counseling and surveillance; Z87.01 Personal history of pneumonia (recurrent); Z87.891 Personal history of nicotine dependence; Y95 Nosocomial condition
CPT/HCPCS: 31720; 36415; 71046; 74018; 80048; 81001; 82274; 82962; 83880; 85014; 85018; 85025; 86920; 86922; 87086; 87088; 87633; 94640; 94668; 97110; 97116; 97162; 97166; 97530; 97535; 97802; J7030; J7050; A4216; J1940

== ENCOUNTER → 2018-07-12 09:03 | Outpatient (CLI) | payer MEDICARE, BC, SELFPAY ==
[2018-07-08 19:59] VITALS: BMI 45.8
[2018-07-12] VITALS (7 sets, daily range): BP systolic 101–136; BP diastolic 59–73; PULSE 84–89; RESP 16–20; TEMP 36.1–36.8; O2SAT 90–92; BMI 37.8
[2018-07-12] MEDS: Furosemide 40 MG/4 ML Vial IV (12:32)
== END ==
PROVIDERS: Family Provider Family Medicine; PCP Family Medicine; Visit Provider Family Medicine Geriatric Medicine
DX: D50.9 Iron deficiency anemia, unspecified (principal)
CPT/HCPCS: 36430; 86850; 86900; 86920; 86921; 86922; J7040; P9016; A4216; J1940

== ENCOUNTER → 2018-08-28 10:22 | Outpatient (CLI) | payer MEDICARE, BC, SELFPAY ==
[2018-08-16 10:26] VITALS: BMI 35.8
--- NOTE | 2018-08-28 10:34 | CR.HP_ITS ---
CR - History & Physical - General Arrival date:: 08/28/18 Arrival time:: 10:30 Date of Referral:: 08/16/18 Date of CR Evaluation:: 08/28/18 Referring Physician: Dr. Zac Parker Primary Diagnosis: CABG - History of Present Cardiac Event Onset Date: Enter Onset Date of cardiac illnesses in Comment field below Current stable Angina Pectoris:: No Acute Myocardial Infarction within 12 months:: Yes Coronary Artery Bypass Graft:: Yes Heart valve replacement or repair:: No PTCA or coronary stenting:: No Heart or Heart-Lung Transplant:: No Heart Failure EF <35%:: No Interventions with present event:: 08/19/2018 Were there any complications?: pneumonia - Medications Home Medications: Ambulatory Orders Medication Instructions Recorded Fluoxetine HCl 40 mg PO DAILY 03/28/18 Levothyroxine Sodium [Synthroid] 125 mcg PO DAILY 03/28/18 Aspirin E.C. [Ecotrin] 81 mg PO DAILY 07/08/18 Lactobacillus Acidophilus 1 tab PO BID 07/08/18 [Acidophilus] Acetaminophen [Tylenol] 1,000 mg PO Q6H PRN tab 07/25/18 Albuterol Aerosols [Ventolin 2.5 mg INHALATION Q2H PRN PRN #100 07/25/18 Aerosols] vial.neb. Tamsulosin HCl [Flomax] 0.4 mg PO DAILY@1730 #30 cap 07/25/18 allopurinol 300 mg tablet 300 mg PO DAILY 07/27/18 apixaban 5 mg tablet 5 mg PO BID 07/27/18 meclizine 12.5 mg tablet 12.5 mg PO TID PRN 07/27/18 ferrous sulfate 325 mg (65 mg 325 mg PO BID tab 08/08/18 iron) tablet atorvastatin 40 mg tablet 40 mg PO QHS #30 tab 08/16/18 colchicine 0.6 mg tablet 0.6 mg PO DAILY PRN 08/16/18 furosemide 40 mg tablet 40 mg PO DAILY #30 tab 08/16/18 metoprolol tartrate 25 mg tablet 12.5 mg PO BID tab 08/16/18 pantoprazole 40 mg tablet,delayed 40 mg PO DAILY 08/16/18 release - Allergies Allergies/Adverse Reactions: Allergies atorvastatin [From Lipitor] Adverse Reaction (Verified 08/16/18 10:26) MUSCLE PAIN - Sleep Disorder Evaluation Hx of Sleep Apnea: No Do you snore loudly (louder than talking or can be heard through closed doors)?: No Do you often feel tired/ fatigued/ sleepy during daytime?: No Has anyone observed you stop breathing during sleep?: No History of Hypertension (for STOP score): Yes STOP Results: Negative Advanced Directives - Advanced Directives 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 Living Will: Yes Advance Directives Information Provided: Yes Advance Directives on File: Yes DNR Order?:: No Past Medical History - Past Medical Illness Medical History: Past Medical History (Last Reviewed 08/16/18 @ 10:36 by Pearl Vickers) Essential hypertension (Chronic) I10 GI bleed (Acute) K92.2 NSTEMI (non-ST elevated myocardial infarction) (Acute) I21.4 Chronic renal insufficiency (Chronic) N18.9 Macrocytic anemia (Acute) D53.9 Morbid obesity with BMI of 40.0-44.9, adult (Chronic) E66.01, Z68.41 Osteoarthritis (Chronic) M19.90 Hypothyroidism (Chronic) E03.9 Gout (Chronic) M10.9 Hyperkalemia (Acute) E87.5 Sepsis (Acute) A41.9 CKD (chronic kidney disease) stage 3, GFR 30-59 ml/min (Chronic) N18.3 Cellulitis (Acute) L03.90 HTN (hypertension) (Inactive) I10 - Past Surgical History Surgical History: Past Surgical History (Last Reviewed 08/16/18 @ 10:36 by Pearl Vickers) History of bilateral hip replacements Z96.643 S/P bilateral foot surgery Z98.890 Surgical History: coronary bypass surgery - x 2., total hip arthroplasty - Bilateral., - - bilateral foot surgeries. - Family History Summary Family History: Family History (Last Reviewed 08/16/18 @ 10:36 by Pearl Vickers) Father Cancer Lung Social History - Smoking History Smoking Status: Former smoker - stopped 40 years ago - Occupation Occupation (List type of work in comments):: Employed - [employer] Hours worked per day:: 9 - Hobbies, Recreation, Social Activities Hobbies: Sports, Farm Recreational Activities: I am able to engage in most, but not all activities Social Environment - Status Marital Status: - Current Living Arrangements Living Environment:: Spouse - Children How many children do you have?: 3 Do any of your children live nearby?: Yes - Safety Do you feel safe in your surroundings?: Yes - Assistance Do you need any assistance at home?: none Review of Systems - Review of Systems Hints: Right click = Denies ([place]). Left click = Reports ([place]) Review of Present Symptoms: Reports: Operative Discomfort, Heart Arrhythmia/Irregularities - A-fib, Appetite - Normal, Appetite - Special Diet, Sleep - Normal. Denies: Shortness of Breath at Rest, Shortness of Breath with Exertion, PVD, Angina, Wound Healing, Dizziness/Lightheadedness, Fatigue, Sexual Changes - Pain Is Patient Pain Free?: No Pain Location: chest - incisional pain when he coughs Pain Level: 07/23 Risk Factor Assessment - Chief Complaint Chief Complaint: CABG - Vital Signs Pulse Ox: 93 Blood Pressure: 90/60 - Pulse Pulse Rate: 85 Pulse Rhythm: Regular - Hypertension How long have you been treated?: 5 years Blood Pressure Sitting - Left Arm: 90/60 - Diabetes Nutrition Referral for Diabetes: No - Obesity Height: 1.88 m Weight:: 126.552 kg Weight in Pounds: 279.0 lbs Body Mass Index (BMI): 35.8 Nutritional Referral for Obesity: No - Physical Inactivity Physical Inactivity: Reg Exercise 30 min/day, Physically demanding job, Recreational activity - Risk Stratification Risk Guidelines: Lowest Risk: Risk Factor for Sedentary Lifestyle, Moderate Risk: Risk Factor for Smoking, Risk Factor for Dyslipidemia, Risk Factor for Diabetes, Risk Factor for Depression, Highest Risk: Risk Factor for Obesity, Risk Factor for Hypertension - For Smoking Smoking Risk Guidelines: Smoking Low Risk: None or quit greater than 6 months ago. Smoking Moderate Risk: Smoker or quit 6 months or less ago. Smoking High Risk: Smoker - For Dyslipidemia Dyslipidemia Risk Guidelines: Low Risk: Moderate Risk: High Risk: 15-25% fat 25.1-29% fat >/= 30% fat. <7% sat fat 7-9% sat fat >9% sat fat. <150 mg chol 150-299 mg chol >/= 300 mg chol. LDL <100 LDL 100-129 LDL >/= 130. Chol/HDL ratio <5.0 Chol/HDL ratio 5.0-6.0 Chol/HDL ratio >6.0. Triglycerides <100 Triglycerides 100-149 Triglycerides >/= 150 - For Diabetes Mellitus Diabetes Risk Guidelines: Diabetes Low Risk: HgA1c <6.5% and/or FBG <120. Diabetes Moderate Risk: HgA1c 6.6-7.9% and/or FBG 120-180. Diabetes High Risk: HgA1c >/= 8% and/or FBG >180 - For Obesity/Overweight Obesity/Overweight Risk Guidelines: Obesity Low Risk: BMI <25.0. Obesity Moderate Risk: BMI 25-29.9. Obesity High Risk: BMI >/= 30.0 - For Hypertension Hypertension Risk Guidelines: Hypertension Low Risk: Systolic <120 and Diastolic <80. Hypertension Moderate Risk: Systolic 120-139 and Diastolic 80-89. Hypertension High Risk: Systolic >/= 140 and Diastolic >/= 90 - For Sedentary Lifestyle Sedentary Lifestyle Risk Guidelines: Sedentary Lifestyle Low Risk: >/= 1,500 kcal/week. Sedentary Lifestyle Moderate Risk: 700-1,499 kcal/week. Sedentary Lifestyle High Risk: < 700 kcal/week - For Depression Depression Risk Guidelines: Depression Low Risk: Not clinically depressed. Depression Moderate Risk: Mildly depressed. 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
--- NOTE | 2018-08-28 10:41 | CR.ITP_ITS ---
General Information - General Information Admitting Diagnosis: CABG - Education/Goals Cardiac Rehabilitation Goals: 1. Maintain the individual as the primary focus of care. 2. To improve the patient's quality of life. 3. Identification of cardiac risk factors and provide cardiac risk factor management. 4. Enhance the psychosocial status of the patient. 5. Reconditioning enough to allow the patient to resume customary activities. 6. Control symptoms of cardiac disease Scale for measuring improvement of personal goals: Enter appropriate number in Comments. 2 = Unchanged. 3 = Slightly Better. 4 = Moderate Improvement. 5 = Met my Goal Personal Goals: Initial Assessment: Participate in home exercise program, Get back to work, or to resume activities faster, Improve knowledge of cardiac disease, Improve muscle strength and endurance Exercise - Initial Assessment - Visit Date of Eval: 08/28/18 - initial eval - Stages of Change Stages of Change:: Contemplate - Physician Prescribed Exercise Modalities: Biodyne, Airdyne, NuStep, SciFit Frequency (days/week): 3x/week for 12 weeks [36 sessions] Duration (Minutes):: 30-45 METs - Progression: 0.5-1.0 MET, RPE 11-14 WEEK: 2.5 - Hypertension Do any of the following apply?: Yes Resting Blood Pressure:: 90/60 - Intervention Home Exercise/Activity Goal:: Moderate Exercise 30 min/day x 5 days/wk - Education Goals:: Warm-up, RPE CHIKA Scale, S/S, Safe Exercise, Self-Monitoring - Exercise Program Goals Exercise Program Goals: Aerobic Activity >30 min, B/P <130/80 Nutrition - Initial Assessment - Program Goals Nutrition Program Goals: LDL <70. Total Cholesterol <200. HDL >45. Triglycerides <150. HgbA1C <7%. BMI <25 - Visit Date of Assessment:: 08/28/18 - Stages of Change Stages of Change:: Contemplate - Diabetes Diabetes:: No - Weight Management Height: 1.88 m Weight:: 126.552 kg Total Score:: 1 - Intervention Referral to dietitian:: No Referral to Diabetic Clinic:: No Will attend diet classes:: Yes - Education Gave educational materials for:: Signs & symptoms of hypoglycemia, Signs & symptoms of hyperglycemia, Relate diabetes to coronary artery disease, Healthy eating Tobacco - Initial Assessment - Program Goals Tobacco Program Goals: Complete smoking cessation. Attend education classes. Improve Knowledge Test score - Stage of Change Stages of Change:: Contemplate - Learning Barriers Total Score:: 17 - Family Support Do you have family support?: Yes - Tobacco Use Tobacco Use: Non-smoker - stopped 40 years ago How long ago did you quit using tobacco products?: Greater than or equal to 6 months ago Do you use smokeless tobacco?: No - Intervention Smoking Cessation Referral:: No Individual Education/Counseling:: No Education Schedule Given:: Yes - Education Gave educational material for:: Tobacco triggers, Coronary artery disease, Risk factors, Sexuality, Medical compliance, Cardiac A&P, Angina signs & symptoms Psychosocial - Initial Assess - Target Goals Target Goals: Assess presence or absence of depression. Using a valid screening tool, maximizes coping skills. Positive support system - Stages of Change Stages of Change:: Contemplate - Psychosocial Test Tool Used:: HANDS Depression Questionnaire Total Mood Screening Score:: 2 Self-Efficacy Score:: 10 - Intervention PS - Interventions: Yes Attend Stress Management Classes, Yes Uses Stress Management Skills, No Referral to Mental Health, No Referral to [facility] Case Management, No Referral to Physician - Education Gave educational materials for:: Coping techniques, Signs & symptoms of depression, Stress management, Relaxation techniques - Assistive Devices Assistive Devices:: Walker, Wheelchair Fall Risk Assessed:: Yes - pt uses a wheelchair or walker Patient Health Questionnaire Initial Assessment 1. Little interest or pleasure in doing things: Not at all 2. Feeling down, depressed, or hopeless: Not at all 3. Trouble falling or staying asleep, or sleeping too much: Not at all 4. Feeling tired or having little energy: Several days 5. Poor appetite or overeating: Several days 6. Feeling bad about yourself -- or that you are a failure or have let yourself or your family down: Not at all 7. Trouble concentrating on things, such as reading the newspaper or watching television: Not at all 8. Moving or speaking so slowly that other people could have noticed. Or the opposite - being so fidgety or restless that you have been moving around a lot more than usual: Not at all 9. Thoughts that you would be better off , or of hurting yourself in some way: Not at all How difficult have these problems made it for you to do your work, take care of things at home, or get along with other people?: Not difficult at all Total Score: 2 WINDY-Q SV Test - Statements CAD is a disease of the arteries in the heart: False Examples of risk factors for heart disease: True Angina is chest pain or discomfort: I Don't Know The benefits of resistance training include: True Eating more meat and dairy products: False Anti-platelet medications such as aspirin are important: True The only effective way to manage stress: False An exercise warm-up slowly increases heart rate: True Prepared, processed foods usually have high sodium: True Depression is common after a heart attack: True The statin medications lower cholesterol: True To control blood pressure, lower the amount of sodium: True If someone gets chest discomfort during walking: False Transfats are partially hydrogenated vegetable oils: I Don't Know Sleep apnea that is not treated increases the risk: I Don't Know To control cholesterol, one should become a vegetarian: False Someone knows if he/she is exercising at the right level: True Diabetes cannot be prevented with exercise & health eating: False Stress is a large risk for heart attack: True A diet that can help lower blood pressure is rich in: True - Total Score Total Correct Responses: 17 Self-Efficacy Initial Assessment We would like to know how confident you are in doing certain activities. Please select your confidence level for:: Select your confidence level for the following using the scale 1-10 where 1 is not at all confident and 10 is totally confident. Your score is the average of all 6 responses. Fatigue: How confident are you that you can keep the fatigue caused by your disease from interfering with the things you want to do? Select Number: 10 Physical Discomfort or Pain: How confident are you that you can keep the physical discomfort or pain of your disease from interfering with the things you want to do? Select Number: 10 Emotional Distress: How confident are you that you can keep the emotional distress caused by your disease from interfering with the things you want to do? Select Number: 10 Other Symptoms or Health Problems: How confident are you that you can keep other symptoms or health problems from interfering with the things you want to do? Select Number: 10 Different Tasks and Activities: How confident are you that you can do the different tasks and activities needed to manage your health condition so as to reduce your need to see a doctor? Select Number: 10 Medication: How confident are you that you can do things other than just taking medication to reduce how much your illness affects your everyday life? Select Number: 10 Total Score:: 10 Nutrition Survey - Nutrition Survey Instructions Scoring Instructions: Scoring is as follows: Yes = 1 points. No = 0 point. Patient score that is >/=12 is considered to be at potential nutritional risk and could benefit from a referral to a registered dietitian. - Nutrition Survey Initial Have you lost >10 lbs over the past 2 months without trying?: Yes Are you following a special diet at home for diabetes, low fat, or low salt?: No Are you interested in meeting with a dietitian for help understanding your diet?: No Do you eat less than 3 meals a day?: No Do you eat fatty meats (chambers, sausage, ribs, etc), fried foods, desserts, large amounts of salad dressings, margarine, butter, or cheese most days?: No Do you have food allergies? [Enter types in comment field]: No Do you eat in restaurants more than 3 times a week?: No Do you season food with salt, seasoning salt, or garlic salt?: No Do you used canned, boxed, frozen meals, or soups, seasoning packets?: No Total Score:: 1
[2018-08-28 11:37] VITALS: BP 90/60
[2018-08-28 11:38] VITALS: BP 90/60; PULSE 85; O2SAT 93; BMI 35.8
== END ==
PROVIDERS: Family Provider Family Medicine; PCP Family Medicine; Referring Provider Internal Medicine Cardiovascular Disease; Visit Provider Internal Medicine Cardiovascular Disease
DX: Z95.1 Presence of aortocoronary bypass graft (principal)

== ENCOUNTER 2018-09-11 09:15 | Outpatient (RCR) | payer MEDICARE, BC, SELFPAY ==
[2018-08-28 11:38] VITALS: BMI 35.8
== END 2018-09-12 23:59 ==
LOC: CR 09:15
PROVIDERS: Family Provider Family Medicine; PCP Family Medicine; Referring Provider Internal Medicine Cardiovascular Disease; Visit Provider Internal Medicine Cardiovascular Disease
DX: I48.0 Paroxysmal atrial fibrillation (principal); I25.10 Atherosclerotic heart disease of native coronary artery without angina pectoris; I21.4 Non-ST elevation (NSTEMI) myocardial infarction; Z95.1 Presence of aortocoronary bypass graft
CPT/HCPCS: 93798

== ENCOUNTER 2018-10-13 09:15 | Outpatient (RCR) | payer MEDICARE, BC, SELFPAY ==
[2018-08-28 11:38] VITALS: BMI 35.8
--- NOTE | 2018-09-27 08:08 | PCM.CR.ITP ---
Exercise - 30-day Assessment - Visit Date of Eval: 09/27/18 Session #:: 10 - Stages of Change Stages of Change:: Action - Physician Prescribed Exercise Modalities: Treadmill, Rower, Airdyne, NuStep Frequency (days/week): 3 Duration (Minutes):: 30-45 Intensity: 60-80% age predicted maximum heart rate reserve METs - Progression: 0.5-1.0 MET, RPE 11-14 WEEK: 3 Target Heart Rate:: 83-97 - Hypertension Resting Blood Pressure:: 98/50 Peak Exercise Blood Pressure:: 122/60 Medication Changes:: Yes - Intervention Home Exercise/Activity Goal:: Sitting Time <3 hrs/day - Education Goals:: Warm-up, RPE CHIKA Scale, S/S, Safe Exercise, Self-Monitoring - Exercise Program Goals Exercise Program Goals: Aerobic Activity >30 min Nutrition - 30-Day Assessment - Program Goals Nutrition Program Goals: LDL <70. Total Cholesterol <200. HDL >45. Triglycerides <150. HgbA1C <7%. BMI <25 - Visit Date of Eval: 09/27/18 - Stages of Change Stages of Change:: Action - Diabetes Diabetes:: No Insulin: No Non-Insulin Dependent?: No - Weight Management Weight:: 280 lb 8 oz - Intervention Referral to dietitian:: No Referral to Diabetic Clinic:: No Will attend diet classes:: Yes - Education Attended class for:: Healthy eating Tobacco - 30-Day Assessment - Program Goals Tobacco Program Goals: Complete smoking cessation. Attend education classes. Improve Knowledge Test score - Stage of Change Stages of Change:: Action - Learning Barriers Learning Barriers: Participates in education - Family Support Do you have family support?: Yes - Tobacco Use Tobacco Use: Non-smoker Do you use smokeless tobacco?: No - Intervention Smoking Cessation Referral:: No Individual Education/Counseling:: No Education Schedule Given:: Yes - Education Attended class for:: Coronary artery disease, Risk factors, Sexuality, Medical compliance, Cardiac A&P, Angina signs & symptoms Psychosocial - Initial Assess - Target Goals Target Goals: Assess presence or absence of depression. Using a valid screening tool, maximizes coping skills. Positive support system - Psychosocial Test Tool Used:: HANDS Depression Questionnaire - Assistive Devices Fall Risk Assessed:: Yes - pt uses a wheelchair or walker Psychosocial - 30-Day Assess - Target Goals Target Goals: Assess presence or absence of depression. Using a valid screening tool, maximizes coping skills. Positive support system - Stages of Change Stages of Change:: Action - Psychosocial Test Tool Used:: HANDS Depression Questionnaire - Intervention PS - Interventions: Yes Attend Stress Management Classes, Yes Uses Stress Management Skills, No Referral to Mental Health, No Referral to [facility] Case Management, No Referral to Physician - Education Attended classes for:: Coping techniques, Signs & symptoms of depression, Stress management, Relaxation techniques - Patient/Program Goal Preventative Medication(s):: Aspirin, Clopidogrel, Beta av, Statin/lipid - Assistive Devices Assistive Devices:: None Fall Risk Assessed:: Yes Patient Health Questionnaire 30-Day Re-eval Assessment 1. Little interest or pleasure in doing things: Several days 2. Feeling down, depressed, or hopeless: Not at all 3. Trouble falling or staying asleep, or sleeping too much: Several days 4. Feeling tired or having little energy: Not at all 5. Poor appetite or overeating: Not at all 6. Feeling bad about yourself -- or that you are a failure or have let yourself or your family down: Not at all 7. Trouble concentrating on things, such as reading the newspaper or watching television: Several days 8. Moving or speaking so slowly that other people could have noticed. Or the opposite - being so fidgety or restless that you have been moving around a lot more than usual: Not at all 9. Thoughts that you would be better off , or of hurting yourself in some way: Not at all How difficult have these problems made it for you to do your work, take care of things at home, or get along with other people?: Somewhat difficult Total Score: 3 Self-Efficacy 30-Day Re-eval Assessment We would like to know how confident you are in doing certain activities. Please select your confidence level for:: Select your confidence level for the following using the scale 1-10 where 1 is not at all confident and 10 is totally confident. Your score is the average of all 6 responses. Fatigue: How confident are you that you can keep the fatigue caused by your disease from interfering with the things you want to do? Select Number: 5 Physical Discomfort or Pain: How confident are you that you can keep the physical discomfort or pain of your disease from interfering with the things you want to do? Select Number: 6 Emotional Distress: How confident are you that you can keep the emotional distress caused by your disease from interfering with the things you want to do? Select Number: 7 Other Symptoms or Health Problems: How confident are you that you can keep other symptoms or health problems from interfering with the things you want to do? Select Number: 7 Different Tasks and Activities: How confident are you that you can do the different tasks and activities needed to manage your health condition so as to reduce your need to see a doctor? Select Number: 6 Medication: How confident are you that you can do things other than just taking medication to reduce how much your illness affects your everyday life? Select Number: 8 Total Score:: 6
[2018-09-27 08:16] VITALS: BP 122/60; BP 98/50
== END 2018-10-13 23:59 ==
LOC: CR 09:15
PROVIDERS: Family Provider Family Medicine; PCP Family Medicine; Referring Provider Internal Medicine Cardiovascular Disease; Visit Provider Internal Medicine Cardiovascular Disease
DX: I48.0 Paroxysmal atrial fibrillation (principal); I25.10 Atherosclerotic heart disease of native coronary artery without angina pectoris; I21.4 Non-ST elevation (NSTEMI) myocardial infarction; Z95.1 Presence of aortocoronary bypass graft
CPT/HCPCS: 93798

== ENCOUNTER 2018-11-08 09:15 | Outpatient (RCR) | payer MEDICARE, BC, SELFPAY ==
[2018-08-28 11:38] VITALS: BMI 35.8
[2018-10-14 01:09] VITALS: BP 122/60; BP 98/50
--- NOTE | 2018-10-27 08:28 | PCM.CR.ITP ---
Exercise - 60-Day Assessment - Visit Date of Eval: 10/27/18 Session #:: 23 - Stages of Change Stages of Change:: Action - Physician Prescribed Exercise Modalities: Treadmill, Airdyne, NuStep Frequency (days/week): 3 Duration (Minutes):: 30-45 Intensity: 60-80% age predicted maximum heart rate reserve METs - Progression: 0.5-1.0 MET, RPE 11-14 WEEK: 4.0 Target Heart Rate:: 90-118 W/Mx HR 73 - Hypertension Resting Blood Pressure:: 102/58 Peak Exercise Blood Pressure:: 120/62 Medication Changes:: Yes - Intervention Home Exercise/Activity Goal:: Moderate Exercise 30 min/day x 5 days/wk - Education Goals:: Warm-up, RPE CHIKA Scale, S/S, Safe Exercise, Self-Monitoring - Exercise Program Goals Exercise Program Goals: Aerobic Activity >30 min Nutrition - 60-Day Assessment - Program Goals Nutrition Program Goals: LDL <70. Total Cholesterol <200. HDL >45. Triglycerides <150. HgbA1C <7%. BMI <25 - Visit Date of Eval: 10/27/18 - Stages of Change Stages of Change:: Action - Lipids Has the patient seen the dietitian?: No - Diabetes Diabetes:: No Insulin: No Non-Insulin Dependent?: No - Weight Management Weight:: 279 lb - down 2.5 pounds - Intervention Referral to dietitian:: No Referral to Diabetic Clinic:: No Will attend diet classes:: Yes - Education Attended class for:: Healthy eating Tobacco - 60-Day Assessment - Program Goals Tobacco Program Goals: Complete smoking cessation. Attend education classes. Improve Knowledge Test score - Stage of Change Stages of Change:: Action - Learning Barriers Learning Barriers: Participates in education - Family Support Do you have family support?: Yes - Tobacco Use Tobacco Use: Non-smoker Do you use smokeless tobacco?: No - Intervention Smoking Cessation Referral:: No Individual Education/Counseling:: No Education Schedule Given:: Yes - Education Attended class for:: Coronary artery disease, Risk factors, Sexuality, Medical compliance, Cardiac A&P, Angina signs & symptoms Psychosocial - Initial Assess - Target Goals Target Goals: Assess presence or absence of depression. Using a valid screening tool, maximizes coping skills. Positive support system - Psychosocial Test Tool Used:: HANDS Depression Questionnaire - Assistive Devices Fall Risk Assessed:: Yes Psychosocial - 60-Day Assess - Target Goals Target Goals: Assess presence or absence of depression. Using a valid screening tool, maximizes coping skills. Positive support system - Stages of Change Stages of Change:: Action - Psychosocial Test Tool Used:: HANDS Depression Questionnaire - Intervention PS - Interventions: Yes Attend Stress Management Classes, Yes Uses Stress Management Skills, No Referral to Mental Health, No Referral to [facility] Case Management, No Referral to Physician - Education Attended classes for:: Coping techniques, Signs & symptoms of depression, Stress management, Relaxation techniques - Patient/Program Goal Preventative Medication(s):: Aspirin, Clopidogrel, Beta av, Statin/lipid - Assistive Devices Assistive Devices:: None Fall Risk Assessed:: Yes Patient Health Questionnaire 60-Day Re-eval Assessment 1. Little interest or pleasure in doing things: Not at all 2. Feeling down, depressed, or hopeless: Not at all 3. Trouble falling or staying asleep, or sleeping too much: Not at all 4. Feeling tired or having little energy: Not at all 5. Poor appetite or overeating: Several days 6. Feeling bad about yourself -- or that you are a failure or have let yourself or your family down: Not at all 7. Trouble concentrating on things, such as reading the newspaper or watching television: Not at all 8. Moving or speaking so slowly that other people could have noticed. Or the opposite - being so fidgety or restless that you have been moving around a lot more than usual: Not at all 9. Thoughts that you would be better off , or of hurting yourself in some way: Not at all Total Score: 1 Self-Efficacy 60-Day Re-eval Assessment We would like to know how confident you are in doing certain activities. Please select your confidence level for:: Select your confidence level for the following using the scale 1-10 where 1 is not at all confident and 10 is totally confident. Your score is the average of all 6 responses. Fatigue: How confident are you that you can keep the fatigue caused by your disease from interfering with the things you want to do? Select Number: 10 Physical Discomfort or Pain: How confident are you that you can keep the physical discomfort or pain of your disease from interfering with the things you want to do? Select Number: 10 Emotional Distress: How confident are you that you can keep the emotional distress caused by your disease from interfering with the things you want to do? Select Number: 10 Other Symptoms or Health Problems: How confident are you that you can keep other symptoms or health problems from interfering with the things you want to do? Select Number: 10 Different Tasks and Activities: How confident are you that you can do the different tasks and activities needed to manage your health condition so as to reduce your need to see a doctor? Select Number: 10 Medication: How confident are you that you can do things other than just taking medication to reduce how much your illness affects your everyday life? Select Number: 10 Total Score:: 10
[2018-10-27 08:32] VITALS: BP 102/58; BP 120/62
== END 2018-11-12 23:59 ==
LOC: CR 09:15
PROVIDERS: Family Provider Family Medicine; PCP Family Medicine; Referring Provider Internal Medicine Cardiovascular Disease; Visit Provider Internal Medicine Cardiovascular Disease
DX: I48.0 Paroxysmal atrial fibrillation (principal); I25.10 Atherosclerotic heart disease of native coronary artery without angina pectoris; I21.4 Non-ST elevation (NSTEMI) myocardial infarction; Z95.1 Presence of aortocoronary bypass graft
CPT/HCPCS: 93798

== ENCOUNTER 2018-11-29 09:15 | Outpatient (RCR) | payer MEDICARE, BC, SELFPAY ==
[2018-11-09 10:29] VITALS: BMI 35.6
[2018-11-13 00:47] VITALS: BP 102/58; BP 120/62
--- NOTE | 2018-11-27 06:55 | CR.ITP_ITS ---
Exercise - Final/Discharge - Visit Date of Eval: 11/27/18 Session #:: 35 - Stages of Change Stages of Change:: Action - Physician Prescribed Exercise Modalities: Treadmill, Airdyne, NuStep Frequency (days/week): 3 Duration (Minutes):: 30-45 Intensity: 60-80% age predicted maximum heart rate reserve METs - Progression: 0.5-1.0 MET, RPE 11-14 WEEK: 4.0 Target Heart Rate:: 90-118 with max HR 96 - Hypertension Do any of the following apply?: Yes, Medication Resting Blood Pressure:: 104/54 Peak Exercise Blood Pressure:: 116/62 - Intervention Home Exercise/Activity Goal:: Moderate Exercise 30 min/day x 5 days/wk - Education Goal Progress: Goal Met - Exercise Program Goals Exercise Program Goals: Aerobic Activity >30 min Nutrition - Final Assessment - Program Goals Nutrition Program Goals: LDL <70. Total Cholesterol <200. HDL >45. Triglycerides <150. HgbA1C <7%. BMI <25 - Visit Date of Eval: 11/27/18 - Stages of Change Stages of Change:: Action - Diabetes Diabetes:: No - Weight Management Height: 6 ft 2 in Weight:: 279 lb - weight been stable - Intervention Referral to dietitian:: No Referral to Diabetic Clinic:: No Will attend diet classes:: Yes - Education Education Goal Reached?: Yes Tobacco - Final Assessment - Program Goals Tobacco Program Goals: Complete smoking cessation. Attend education classes. Improve Knowledge Test score - Stage of Change Stages of Change:: Action - Family Support Do you have family support?: Yes - Tobacco Use Tobacco Use: Non-smoker Do you use smokeless tobacco?: No - Intervention Smoking Cessation Referral:: No Education Schedule Given:: Yes - Education Education Goal Reached?: Yes Psychosocial - Initial Assess - Target Goals Target Goals: Assess presence or absence of depression. Using a valid screening tool, maximizes coping skills. Positive support system - Psychosocial Test Tool Used:: HANDS Depression Questionnaire - Assistive Devices Fall Risk Assessed:: Yes Psychosocial - Final Assessmen - Target Goals Target Goals: Assess presence or absence of depression. Using a valid screening tool, maximizes coping skills. Positive support system - Stages of Change Stages of Change:: Action - Psychosocial Test Tool Used:: HANDS Depression Questionnaire - Intervention PS - Interventions: Yes Attend Stress Management Classes, Yes Uses Stress Management Skills, No Referral to Mental Health, No Referral to [facility] Case Management, No Referral to Physician - Education Education Goal Reached?: Yes - Patient/Program Goal Preventative Medication(s):: Aspirin, CELY inhibitor, Clopidogrel, Beta av, Statin/lipid - Assistive Devices Assistive Devices:: None Fall Risk Assessed:: Yes Patient Health Questionnaire Discharge Assessment 1. Little interest or pleasure in doing things: Not at all 2. Feeling down, depressed, or hopeless: Not at all 3. Trouble falling or staying asleep, or sleeping too much: Not at all 4. Feeling tired or having little energy: Not at all 5. Poor appetite or overeating: Not at all 6. Feeling bad about yourself -- or that you are a failure or have let yourself or your family down: Not at all 7. Trouble concentrating on things, such as reading the newspaper or watching television: Not at all 8. Moving or speaking so slowly that other people could have noticed. Or the opposite - being so fidgety or restless that you have been moving around a lot more than usual: Not at all 9. Thoughts that you would be better off , or of hurting yourself in some way: Not at all How difficult have these problems made it for you to do your work, take care of things at home, or get along with other people?: Not difficult at all Total Score: 0 WINDY-Q SV Test - Statements CAD is a disease of the arteries in the heart: False Examples of risk factors for heart disease: True Angina is chest pain or discomfort: True The benefits of resistance training include: True Eating more meat and dairy products: False Anti-platelet medications such as aspirin are important: True The only effective way to manage stress: False An exercise warm-up slowly increases heart rate: True Prepared, processed foods usually have high sodium: True Depression is common after a heart attack: True The statin medications lower cholesterol: True To control blood pressure, lower the amount of sodium: True If someone gets chest discomfort during walking: True Transfats are partially hydrogenated vegetable oils: True Sleep apnea that is not treated increases the risk: False To control cholesterol, one should become a vegetarian: False Someone knows if he/she is exercising at the right level: True Diabetes cannot be prevented with exercise & health eating: False Stress is a large risk for heart attack: True A diet that can help lower blood pressure is rich in: True - Total Score Total Correct Responses: 19 Self-Efficacy Discharge Assessment We would like to know how confident you are in doing certain activities. Please select your confidence level for:: Select your confidence level for the following using the scale 1-10 where 1 is not at all confident and 10 is totally confident. Your score is the average of all 6 responses. Fatigue: How confident are you that you can keep the fatigue caused by your disease from interfering with the things you want to do? Select Number: 10 Physical Discomfort or Pain: How confident are you that you can keep the physical discomfort or pain of your disease from interfering with the things you want to do? Select Number: 10 Emotional Distress: How confident are you that you can keep the emotional distress caused by your disease from interfering with the things you want to do? Select Number: 10 Other Symptoms or Health Problems: How confident are you that you can keep other symptoms or health problems from interfering with the things you want to do? Select Number: 10 Different Tasks and Activities: How confident are you that you can do the different tasks and activities needed to manage your health condition so as to reduce your need to see a doctor? Select Number: 10 Medication: How confident are you that you can do things other than just taking medication to reduce how much your illness affects your everyday life? Select Number: 10 Total Score:: 10 Nutrition Survey - Nutrition Survey Instructions Scoring Instructions: Scoring is as follows: Yes = 1 points. No = 0 point. Patient score that is >/=12 is considered to be at potential nutritional risk and could benefit from a referral to a registered dietitian. - Nutrition Survey Discharge Have you lost >10 lbs over the past 2 months without trying?: No Are you following a special diet at home for diabetes, low fat, or low salt?: Yes Are you interested in meeting with a dietitian for help understanding your diet?: No Do you eat less than 3 meals a day?: No Do you eat fatty meats (chambers, sausage, ribs, etc), fried foods, desserts, large amounts of salad dressings, margarine, butter, or cheese most days?: No Do you have food allergies? [Enter types in comment field]: No Do you eat in restaurants more than 3 times a week?: No Do you season food with salt, seasoning salt, or garlic salt?: No Do you used canned, boxed, frozen meals, or soups, seasoning packets?: No Total Score:: 1
[2018-11-27 06:59] VITALS: BP 104/54; BP 116/62
== END 2018-12-13 23:59 ==
LOC: CR 09:15
PROVIDERS: Family Provider Family Medicine; PCP Family Medicine; Referring Provider Internal Medicine Cardiovascular Disease; Visit Provider Internal Medicine Cardiovascular Disease
DX: I48.0 Paroxysmal atrial fibrillation (principal); I25.10 Atherosclerotic heart disease of native coronary artery without angina pectoris; I21.4 Non-ST elevation (NSTEMI) myocardial infarction; Z95.1 Presence of aortocoronary bypass graft
CPT/HCPCS: 93798

== ENCOUNTER → 2019-10-17 07:36 | Outpatient (CLI) | payer MEDICARE, BC, SELFPAY ==
[2019-08-24 10:32] VITALS: BMI 36.1
--- NOTE | 2019-10-17 07:40 | CDU_ITS ---
Reason For Study: RETINAL ARTERY OCCLUSION Rt. Velocities/BP Lt. Velocities/BP Prox CCA 132/17 cm/sec. Prox CCA 124/23 cm/sec. Mid CCA 140/19 cm/sec. Mid CCA 114/21 cm/sec. Dist CCA 82/14 cm/sec. Dist CCA 122/21 cm/sec. Prox ICA 163/30 cm/sec. Prox ICA 160/57 cm/sec. Mid ICA 131/23 cm/sec. Mid ICA 160/39 cm/sec. Dist ICA 107/28 cm/sec. Dist ICA 114/26 cm/sec. Rt. ICA/CCA = 1.2. Lt. ICA/CCA = 1.3. Prox ECA 124/0 cm/sec. Prox ECA 189/13 cm/sec. Rt. Vert. 31/17 cm/sec. Lt. Vert. 32/17 cm/sec. Right Extracranial There is heterogeneous, irregular atherosclerotic plaque noted in the right common carotid artery. There is heterogeneous, irregular atherosclerotic plaque noted in the right internal carotid artery. There is heterogeneous, irregular atherosclerotic plaque noted in the right external carotid artery. Antegrade flow is noted in the right vertebral artery. There is heterogeneous, irregular atherosclerotic plaque noted in the right bulb. Left Extracranial There is heterogeneous, irregular atherosclerotic plaque noted in the left common carotid artery. There is heterogeneous, irregular atherosclerotic plaque noted in the left internal carotid artery. There is heterogeneous, irregular atherosclerotic plaque noted in the left external carotid artery. Antegrade flow is noted in the left vertebral artery. There is heterogeneous, irregular atherosclerotic plaque noted in the left bulb. Procedure Carotid Duplex 30977. Technically difficult due to pt respiration/body habitus- velocities may be underestimated. Exam performed in department. 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 Moderate (50-69%) stenosis left extracranial internal carotid. Flow within the vertebral arteries is antegrade bilaterally. Ordering Physician: Abel Cobb Referring Physician: ANTHONY GEORGE Performed By: Cierra Sosa, ROXY, RVT
== END ==
PROVIDERS: PCP Family Medicine; Referring Provider Ophthalmology; Visit Provider Ophthalmology
DX: H34.232 Retinal artery branch occlusion, left eye (principal)
CPT/HCPCS: 93880

== ENCOUNTER → 2019-10-23 13:45 | Outpatient (CLI) | payer MEDICARE, BC, SELFPAY ==
[2019-08-24 10:32] VITALS: BMI 36.1
--- NOTE | 2019-10-23 13:47 | ECHOCS_ITS ---
Reason For Study: CAD Procedure This was a 2D Doppler, Color Flow transthoracic echocardiogram. The study was technically difficult. Contrast injection was performed. Exam performed in department. Left Ventricle Normal LV size. Left ventricular systolic function is normal. The estimated ejection fraction is 55 %. Post operative septal motion. Diastolic function is indeterminate. No regional wall motion abnormalities noted. Right Ventricle Normal RV size. Normal systolic function. Atria Normal left atrium. Normal right atrium. No doppler evidence for ASD. Mitral Valve There is mild mitral annular calcification. Normal mitral valve. Trivial mitral valve insufficiency. Tricuspid Valve Normal tricuspid valve. Trivial tricuspid valve insufficiency. Unable to estimate RV systolic pressure/pulmonary artery pressure due to technically difficult study. Aortic Valve The aortic valve is not well visualized. Mild focal aortic valve calcification. Mild aortic stenosis. Pulmonic Valve The pulmonic valve is not well visualized. Great Vessels The aortic root is not well visualized. Pericardium/Pleural No pericardial effusion. Medication 22 gauge I.V. with prn adaptor inserted into left arm. Diluted definity 3ml given slow IV push to enhance endocardial definition. MMode/2D Measurements & Calculations LVIDd: 5.0 cm IVSd: 0.97 cm LVOT diam: 2.3 cm LVIDs: 2.9 cm LVPWd: 0.94 cm RVDd: 4.5 cm FS: 42.1 % LVOT area: 4.1 cm2 LAV(MOD-bp): 51.5 ml LA A4 area: 21.4 cm2 LA dimension(2D): 4.5 cm LAV(MOD-bp) Indexed: 21.9 ml/m2 LAV(MOD-sp2): 47.9 ml LAV(MOD-sp4): 54.9 ml RA A4 area: 17.0 cm2 Doppler Measurements & Calculations MV E max lon: 54.2 cm/sec Lat Peak E' Lon: 8.1 cm/sec Med Peak E' Lon: 6.2 cm/sec MV A max lon: 53.4 cm/sec E/E' lat: 6.7 E/E' med: 8.7 MV E/A: 1.0 Ao V2 max: 197.1 cm/sec LV V1 max: 83.7 cm/sec SV(LVOT): 78.0 ml Ao max P.6 mmHg LV V1 max P.8 mmHg Ao V2 mean: 134.0 cm/sec LV V1 mean P.4 mmHg Ao mean P.1 mmHg LV V1 mean: 55.4 cm/sec Ao V2 VTI: 40.4 cm LV V1 VTI: 19.1 cm NAEEM(I,D): 1.9 cm2 NAEEM(V,D): 1.7 cm2 PA V2 max: 108.6 cm/sec Interpretation Summary The study was technically difficult. Contrast injection was performed. Left ventricular systolic function is normal. The estimated ejection fraction is 55 %. Post operative septal motion. There is mild mitral annular calcification. Trivial mitral valve insufficiency. Trivial tricuspid valve insufficiency. Mild focal aortic valve calcification. Mild aortic stenosis. Unable to estimate RV systolic pressure/pulmonary artery pressure due to technically difficult study. Diastolic function is indeterminate. Ordering Physician: Zac Parker Referring Physician: MD Liliya Alexandro Performed By: Jolie Madison RDCS
== END ==
PROVIDERS: PCP Family Medicine; Referring Provider Internal Medicine Cardiovascular Disease; Visit Provider Internal Medicine Cardiovascular Disease
DX: I25.10 Atherosclerotic heart disease of native coronary artery without angina pectoris (principal); Z95.1 Presence of aortocoronary bypass graft; I48.0 Paroxysmal atrial fibrillation
CPT/HCPCS: 93306; Q9957; A4216; C8929

== ENCOUNTER 2020-02-18 11:22 | Day surgery (SDC) | payer MEDICARE, BC, SELFPAY ==
[2020-02-11 08:25] VITALS: BMI 38.5
--- NOTE | 2020-02-11 09:28 | RAD_ITS ---
STUDY: X-RAY CHEST REASON FOR EXAM: Male, 84 years old. Pre-PPM implant. TECHNIQUE: PA and lateral views of the chest. COMPARISON: 07/27/2018. FINDINGS: There is mildly decreased inspiratory effort with no new mass or infiltrate. Again seen is a large calcified granuloma in the left lung. There is no demonstrated pleural abnormality. Stable cardiac size. Again seen is median sternotomy. Normal mediastinum and joey. Normal visualized pulmonary arteries. There is atherosclerotic calcification of the aortic arch with tortuosity. There are diffuse degenerative changes of the visualized thoracic spine. There is degenerative osteoarthritis of the bilateral shoulders. There is no demonstrated abnormality of the visualized soft tissue structures of the upper abdomen. RAD/Chest PA and Lateral IMPRESSION: No acute cardiopulmonary disease or interval change. Electronically Signed: Samir Baldwin DO at 22:34 EDT Tel [phone], Service support ,
[2020-02-11 09:40] LABS: Bacteria 0 SEEN /hpf (None Seen); Mucous, Urine 0 SEEN /hpf (<or=2+); Red Blood Cells-Urine 0 SEEN /hpf (0-5); White Blood Cells 0 SEEN /hpf (0-5)
[2020-02-11 10:10] LABS: Hematocrit 42.6 % (40-54); Hemoglobin 13.2 g/dL (13.0-16.5); Mean Corpuscular Hgb 29.5 pg (27.0-32.0); Mean Corpuscular Volume 95.1 fL (80-94); Mean Platelet Vol. 9.8 fl (6.2-12.0); Platelet Count 151 K/mm3 (150-450); RBC Distribution Width CV 14.6 % (11.6-14.6); RBC Distribution Width SD 50.9 fl (35.1-43.9); Red Blood Count 4.48 M/mm3 (4.6-6.2); White Blood Count 8.2 K/mm3 (4.4-11.0)
[2020-02-11 10:21] LABS: Anion Gap 5 (5-15); BUN 47 mg/dL (7-18); BUN/Creat Ratio 32.2 RATIO (10-20); Calcium,Total 8.9 mg/dL (8.5-10.1); Chloride 110 mmol/L (98-107); Creatinine, Serum 1.46 mg/dL (0.70-1.30); EST Glomerular Filtration Rate 49 mL/min (>60); Est Glom Filt Rate - Afr Amer 59 mL/min (>60); Glucose 116 mg/dL (74-106); International Normalized Ratio 1.2; Potassium 4.4 mmol/L (3.5-5.1); Prothrombin Time (Protime)PT. 14.6 SECONDS (11.7-14.9); Sodium Level 140 mmol/L (136-145)
[2020-02-11 10:25] LABS: Color, Urine Yellow (Yellow); Glucose, Dipstick Normal (Normal); Ketone-Dipstick Negative (Negative); Leukocyte Esterase-Dipstick Negative /ul (Negative); Nitrite-Dipstick Negative (Negative); Occult Blood-Urine Negative /ul (Negative); Protein-Dipstick Negative (Negative); Urine Bilirubin Dipstick Negative (Negative); Urine Clarity Clear (Clear); Urine Urobilinogen Normal (Normal)
[2020-02-11 10:32] LABS: Squamous Epithelial Cells - UA 0-5 SEEN /hpf (0-5)
[2020-02-15 08:17] VITALS: BMI 38.5
[2020-02-18] VITALS (11 sets, daily range): BP systolic 120–153; BP diastolic 56–80; PULSE 60–68; RESP 16–18; TEMP 36.2–36.6; O2SAT 92–96; BMI 38.0
--- NOTE | 2020-02-18 01:00 | HP_ITS ---
HPI HPI History of Present Illness Surgical H&P: Yes Details: HIRAM KRUEGER, is a 84 M who presents to the office today to discuss a pacemaker placement. He has a history of non-ST elevated myocardial infarction in March 2018, hypertension, chronic renal insufficiency, and gastrointestinal bleeding associated with anemia. He underwent a heart catheterization in May 2018 after recovering from GI bleed during hospitalization in March 2018 that showed multivessel CAD with left main with 50% stenosis, mid LAD with 85% stenosis, ostial diagonal with 50% stenosis, OM1 with 95% stenosis, LCx with 75% stenosis, and RCA with 25% stenosis. He was referred to [facility] and he underwent CABG x2 with Dr. Wilkes on 06/23/2018 with a TANNER to the LAD and SVG to OM1. His post operative course was complicated by polymicrobial pneumonia, anemia requiring transfusion, paroxysmal atrial fibrillation, and acute kidney injury. In September, He presented to his eye doctor for vision loss. We obtained an echo and carotid u/s. Carotid u/s demonstrated moderate disease. He established with Dr. Milligan for this. This will be monitored. Patient called our office at the beginning of the month with concerns over palpitations. He felt that these were different than what he had previously with his atrial fibrillation. 30-day event monitor was obtained. 30-day event monitor is noting pauses of 3 to 3.2 seconds ventricular standstill. He is also had episodes of second-degree AV block type I. 30-day event monitor is not completed yet. Because of the pauses he was brought in today to discuss pacemaker placement. He has not had any syncopal events. He has not had any further stoke like symptoms. He does occasionally have dizzy spells. He is aware of the pauses that he is having. He sts that he can not describe it it just feels like something different in his chest. He does occasionally have SOB, this is not worse then what it was previous. He does not have any orthopnea. He does not have any edema. He does still try to keep [place]. Intake Vital Signs 02/11/20 Height 6 ft 02/11/20 Weight: 284 lb 02/11/20 BMI 38.5 02/11/20 BP 121/80 H 02/11/20 Blood Pressure Location Rt brachial 02/11/20 Position Sitting 02/11/20 Respiration 18 02/11/20 Pulse 72 02/11/20 Pulse Source Monitor 02/11/20 Pulse Oximetry (%) 88 Intake Visit Reasons: Update H & P/Jackie 9:00 Chief Console Operator Required: No Is patient in pain?: No Allergies atorvastatin [From Lipitor] Adverse Reaction (Verified 02/11/20 08:25) MUSCLE PAIN Medications Fluoxetine HCl 40 mg PO DAILY 03/28/18 [History Confirmed 02/11/20] Levothyroxine Sodium [Synthroid] 125 mcg PO DAILY 03/28/18 [History Confirmed 02/11/20] Acetaminophen [Tylenol] 1,000 mg PO Q6H PRN tab 07/25/18 [Rx Confirmed 02/11/20] Tamsulosin HCl [Flomax] 0.4 mg PO DAILY@1730 #30 cap 07/25/18 [Rx Confirmed 02/11/20] allopurinol 300 mg tablet 300 mg PO DAILY 07/27/18 [History Confirmed 02/11/20] pantoprazole 40 mg tablet,delayed release 40 mg PO DAILY 08/16/18 [History Confirmed 02/11/20] furosemide 20 mg tablet 20 mg PO DAILY #30 tab 11/09/18 [Rx Confirmed 02/11/20] aspirin 81 mg tablet,delayed release 81 mg PO DAILY #90 tab 04/15/19 [Rx Confirmed 02/11/20] meclizine 12.5 mg tablet 12.5 mg PO DAILY 08/24/19 [History Confirmed 02/11/20] apixaban 2.5 mg tablet 2.5 mg PO BID #180 tab 02/11/20 [Rx Confirmed 02/11/20] rosuvastatin 10 mg tablet mg PO DAILY tab 02/11/20 [History Confirmed 02/11/20] [facility] Medical History Sick sinus syndrome (Chronic) Retinal artery occlusion (Acute) Hyperkalemia (Resolved) GI bleed (Resolved) NSTEMI (non-ST elevated myocardial infarction) (Acute) Healthcare associated bacterial pneumonia (Resolved) Atrial flutter (Acute) Acute blood loss anemia (Chronic) Old myocardial infarction (Chronic) Hyperlipidemia (Chronic) Paroxysmal atrial fibrillation (Chronic) Dizziness (Chronic) Depression (Chronic) GERD (gastroesophageal reflux disease) (Chronic) Atherosclerotic heart disease of ruby coronary artery without angina pectoris (Chronic) Chest pain (Acute) Essential hypertension (Chronic) Chronic renal insufficiency (Chronic) Macrocytic anemia (Acute) Morbid obesity with BMI of 40.0-44.9, adult (Chronic) Osteoarthritis (Chronic) Hypothyroidism (Chronic) Gout (Chronic) CKD (chronic kidney disease) stage 3, GFR 30-59 ml/min (Chronic) Cellulitis (Resolved) Sepsis (Resolved) HTN (hypertension) (Inactive) Surgical History History of bilateral hip replacements (Resolved) S/P bilateral foot surgery (Resolved) 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) Family History Father Cancer Lung Heart disease Myocardial infarction Social History (Updated 02/11/20 @ 09:05 by Pearl WELSH, PA) Smoking Status: Former smoker how long ago did patient quit smokin years ago alcohol intake: never substance use type: does not use caffeine: No what type of physical activity do you participate in: walking frequency: daily ROS Const Const: Positive for fatigue; negative for weakness, fever(s) or headache(s) Eyes Eyes: Negative for blind spots, loss of peripheral vision or transient loss of vision ENT ENT: Negative for headache(s) Cardio Chest Pain: No Palpitations: No Edema: None Muscle aches with walking: None Resp Respiratory: Positive for SOB with activity; negative for SOB at rest, SOB orthopnea\SOB lying down or Cough GI GI: Negative nausea, vomiting, heartburn or vomiting blood/hematemesis : Negative for hematuria Musc Musc: Negative for muscle aches/ myalgia Neuro Neuro: Negative for headache(s) or weakness Saji Hematologic/Lymphatic: Negative for easy bleeding Endo Endo: Positive for fatigue Cardiology Exam Const Appearance: cooperative, healthy appearing, comfortable, no acute distress, well developed and well groomed Nutritional Appearance: well nourished and obese Orientation: alert, awake and oriented x3 Head Head: normal to inspection, normocephalic and atraumatic Ears: hearing grossly normal bilaterally Nose: external nose normal Face and Sinus: face symmetric Mouth: oral mucosae normal Eyes Eyelids: eyelids normal Conjunctivae: conjunctivae normal Pupils: PERRL EOM: EOM intact bilaterally Neck Neck: normal visual inspection, full ROM and no JVD Carotids: normal carotid upstroke Chest Chest inspection: normal inspection of the chest, symmetric chest movement, midline sternotomy incision and normal respiratory effort; negative cough Auscultation: Bilateral: Inspiratory Wheezes (Faint upper airway inspiratory wheeze bilateral) Cardio Rate: regular rate Rhythm: regular rhythm Heart sounds: S1 normal and S2 normal; negative rub, gallop or murmur GI GI: obese Neuro General: alert, awake, oriented x3 and moves all extremities Skin Skin: no rashes or lesions noted Extremities Pulses: Normal: Right Posterior Tibial Pulse, Left Posterior Tibial Pulse, Right Radial Pulse, Left Radial Pulse Lower Extremity Edema: None: Bilateral Psych Psychological: normal affect Assessment & Plan 1. Sick sinus syndrome I49.5 Plan Patient is noted to have pauses greater than 3 seconds on his 30-day event monitor. He is symptomatic with this. Reviewed with Dr. Parker and Dr. Manzanares. Patient will undergo a pacemaker placement. Orders Orders: 12 Lead EKG performed by [facility] Today 2. Atherosclerosis of ruby coronary artery of ruby heart without angina pectoris I25.10 TANNER to LAD, SVG to OM @ [facility] 06/23/18 Plan Stable, from a cardiac standpoint patient does not have any symptoms of angina. We recommend that they continue with current aggressive medical management and risk factor modification. 3. Essential hypertension I10 Plan Blood pressure is well controlled on current medications, we do not recommend any changes at this time. 4. Paroxysmal atrial fibrillation I48.0 Plan Patient currently is not on any rate limiting medications. He was taking his Eliquis only once a day, with his history of his retinal artery occlusion strongly encouraged him to increase his back to twice a day. He is agreeable to do so. We will also be able to monitor his atrial fibrillation through his pacemaker interrogations. He does have a history of anemia to recommend also close monitoring of his hemoglobin. Orders Orders: 12 Lead EKG performed by [facility] Today 5. Hyperlipidemia E78.5 Plan Patient will continue with low intensity statin. This is managed by his primary care doctor. Plan Detail Other Orders Orders: 12 Lead EKG performed by [facility] Today I48.92 Other Medications Changed: From: apixaban (Eliquis) 2.5 mg PO BID To: apixaban 2.5 mg PO BID 180 tabs 3RF Follow Up 02/11/20 (keep as is) Coding Level of Care Code Off vis,est,level 4 Diagnoses Sick sinus syndrome I49.5 Atherosclerosis of ruby coronary artery of ruby heart without angina pectoris I25.10 ??[place] vs. transplanted heart: ruby heart Essential hypertension I10 Paroxysmal atrial fibrillation I48.0 Hyperlipidemia E78.5 Coding Level of Care Code Off vis,est,level 4 Diagnoses Sick sinus syndrome I49.5 Atherosclerosis of ruby coronary artery of ruby heart without angina pectoris I25.10 ??[place] vs. transplanted heart: ruby heart Essential hypertension I10 Paroxysmal atrial fibrillation I48.0 Hyperlipidemia E78.5 Supplemental Info Supplemental Information Echocardiogram from 03/28/18: Interpretation Summary The study was technically difficult. Contrast injection was performed. Segmental dysfunction with preserved ejection fraction (see wall motion). The estimated ejection fraction is 60 %. Mild concentric left ventricular hypertrophy. The left atrium is mildly enlarged. Trivial mitral valve insufficiency. Mild tricuspid valve insufficiency. Aortic valve sclerosis / mild aortic valve stenosis. Trivial aortic valve insufficiency. Right ventricular systolic pressure estimated to be 50 mmHg. There is evidence of diastolic dysfunction. Echocardiogram 10/2019: Left ventricular systolic function is normal. The estimated ejection fraction is 55 %. Post operative septal motion. There is mild mitral annular calcification. Trivial mitral valve insufficiency. Trivial tricuspid valve insufficiency. Mild focal aortic valve calcification. Mild aortic stenosis. Unable to estimate RV systolic pressure/pulmonary artery pressure due to technically difficult study. Diastolic function is indeterminate. Heart catheterization from 05/30/18: CORONARY ANGIOGRAPHY DOMINANCE: Right Dominant LEFT HEART ASSESSMENT Left Ventricular Ejection Fraction: Not assessed LEFT MAIN: Mild calcification, Distal: Eccentric: 50 % Stenosis LEFT ANTERIOR DESCENDING ARTERY: Mild luminal irregularities PROX LAD: Moderate calcification MID LAD: 85 % Stenosis DIAGONAL 1: Ostial - 50 % Stenosis, Proximal - Mild luminal irregularities CIRCUMFLEX ARTERY: PROX CIRC: Moderate calcification, Diffuse: Irregular: 75 % Stenosis OM 1: Ostial - 95 % Stenosis RIGHT CORONARY ARTERY: Diffuse: Eccentric: 25 % Stenosis COLLATERAL FLOW: Collateral flow from Right to Left Diagnostics Electrocardiogram 02/11/20 Echocardiogram 10/23/19 COVID (Procedure Consent) Procedure Criteria Procedure Criteria: Yes Elective The surgeon/proceduralist and patient have discussed in detail the risk of exposure to and/or potential harm posed by the COVID-19 virus with having a surgery/procedure at this time versus the risk of? delaying the surgery/procedure. It is not possible to know either the risk of delaying the surgery or procedure or chance of getting an infection with perfect accuracy, but a joint decision was made between the patient and the surgeon/proceduralist ?to proceed at this time with the scheduled surgery/procedure as indicated on the consent form.
--- NOTE | 2020-02-18 14:01 | CL.IE_ITS ---
Patient: HIRAM KRUEGER Study Date: 02/18/2020 Performing: Rui Manzanares MD : [id number] Age: 84 Gender: male PROCEDURES PERFORMED [id number] PACER INSERT+DUAL LEADS INDICATIONS Sinoatrial node dysfunction/Sick sinus syndrome PROCEDURE DETAILS The patient was brought to the Catheterization Lab in the postabsorptive nonsedated state. Infor med consent was obtained prior to the procedure. Local anesthetic was given subcutaneously to the le ft upper chest area with Lidocaine 2%. Incision was made to the left upper chest. Access was achieved and a guidewire was advanced into the left subclavian vein. A peel-away sheath was inserted into the left subclavian vein. PPM ventricular lead was inserted / positioned to right ventricular apex. PPM ventricular lead testing performed. PPM ventricular lead testing performed. A peel-away sheath was in serted into the left subclavian vein. PPM atrial lead was inserted / positioned to the right atrial a ppendage. PPM atrial lead testing performed. The Atrial lead sutured in place with 2-0 Silk. The Vent ricular PM lead sutured in place with 2-0 Silk. Device pocket was irrigated with antibiotic. PPM gene rator was attached to the lead(s) and inserted into the pocket. PPM generator was then interrogated by the senior application programmer. Subcutaneous closure was completed with 3-0 Vicryl. Skin closure was completed with 4-0 Vicryl. Steri-strips applied to Lt chest area. Pressure dressing applied to left c hest. The patient tolerated the procedure well. Estimated Blood Loss: 6 ml's IMPLANTED / EX-PLANTED DEVICES IMPLANTED DEVICE(S): PPM Ventricular lead - Ammonia Print Operator: [employer], Model # 7842 , Serial # [id number] PPM Atrial lead - Ammonia Print Operator: [employer], Model # 7841 , Serial # [id number] PPM Generator - Ammonia Print Operator: [employer], Model # [id number] , Serial # [id number] DEVICE PARAMETERS ATRIAL LEAD PARAMETERS: P wave (mV) - 0.5 P wave (mV) - 3.8 Current (mA) - 1.2 threshold (V) - .7 impedence (OHMS) - 596 VENTRICULAR LEAD PARAMETERS: R wave (mV) - 9.2 current (mA) - 1.6 impedence (OHMS) - 632 threshold (V) - 1.0 DEVICE PARAMETERS: rate response off Mode - ddd lower rate - 60 upper rate - 120 CONCLUSIONS / RECOMMENDATIONS Device Conclusions: Successful implantation of a dual chamber pacemaker Device Recommendations: Follow up with Primary Care Physician PROCEDURE MEDICATIONS Versed 1 mg IV Fentanyl 50 mcg IV Oxygen: 2 L/min via nasal cannula Ancef 2 Gm IV @ 02/18/2020 12:45:07 Signed By Rui Manzanares MD On 02/18/2020 13:59:44 Rui Manzanares MD
[2020-02-18] MEDS: Tamsulosin HCl 0.4 MG Capsule PO (18:36)
[2020-02-18] MEDS: Acetaminophen 500 MG Tablet 1000 MG PO (22:15)
[2020-02-19 02:30] VITALS: BP 138/74; PULSE 70; RESP 18; TEMP 36.7; O2SAT 92
[2020-02-19 03:00] VITALS: PULSE 73
[2020-02-19] MEDS: Levothyroxine 125 MCG Tablet PO (05:41)
[2020-02-19] MEDS: Acetaminophen 500 MG Tablet 1000 MG PO (05:41)
[2020-02-19 05:50] VITALS: BP 127/77; PULSE 63; RESP 16; TEMP 36.4; O2SAT 93
--- NOTE | 2020-02-19 05:55 | RAD_ITS ---
STUDY: X-RAY CHEST REASON FOR EXAM: Male, 84 years old patient with recent pacemaker placement presents for evaluation of pneumothorax. TECHNIQUE: AP and lateral views of the chest. COMPARISON: Chest radiograph dated 02/11/2020. FINDINGS: Left-sided intracardiac pacemaker is present. Patient has had a sternotomy. The lungs are hyperexpanded there are prominent bronchovascular markings present in both lungs. There is a calcification within the mid left lung that may represent a granuloma. This is unchanged since the previous radiograph.. There is no demonstrated pleural abnormality. There is mild cardiac enlargement. There is prominence of bilateral hilar areas which may be result of enlarged pulmonary arteries. The appearance is similar to previous study. Lymphadenopathy cannot be excluded. There is prominence of the pulmonary hilar arteries without peripheral pulmonary vascular congestion. There is atherosclerotic calcification of the aortic arch with tortuosity. There is demineralization of the osseous structures. Normal visualized ribs, clavicles, and shoulders. There is no demonstrated abnormality of the visualized soft tissue structures of the upper abdomen. RAD/Chest 3 View IMPRESSION: 1. No radiographic evidence for pneumothorax after placement of left-sided pacemaker. 2. Persistent enlargement apparently of the pulmonary arteries. Lymphadenopathy cannot be excluded. Follow-up CT may be helpful further evaluation. Electronically Signed: Laurita Horner MD at 7:48 EDT , Service support ,
[2020-02-19 07:14] VITALS: PULSE 67
--- NOTE | 2020-02-19 08:50 | PCM.PN.CARD ---
Subjectve: Patient seen and evaluated Objective: Vital Signs Temp Pulse Resp BP Pulse Ox 97.6 F L 67 16 127/77 H 93 02/19/20 05:50 02/19/20 07:14 02/19/20 05:50 02/19/20 05:50 02/19/20 05:50 Oxygen Flow Rate (L/min) 2 Oxygen Delivery Method Room Air Weight: 280 lb Body Mass Index (BMI) 38.0 Finger Stick Blood Glucose 119 Intake and Output for Last 24 Hours 02/17/20 02/18/20 02/19/20 23:59 23:59 23:59 Intake Total 340 / 340 240 / 240 Output Total 1075 / 1075 300 / 300 Balance -735 / -735 -60 / -60 General: Awake, Alert, Oriented x 3 HEENT: PERRL, EOMI, Sclera Non Icteric Neck: Supple, Good ROM, No Lymph Node Enlargement Lungs: Clear to auscultation Cardiovascular: Regular Rhythm, Normal S1, Normal S2, No Murmurs, No Rubs, No Gallops Rhythm: EKG: ECHO: Stress Test: Cardiac Cath: PCI: CT Surgery: Holter monitor: EPS: PPM: CXR: Chest CT Scan: Medical Necessity - Tobacco Use Smoking Status: Former smoker Assessment/Plan 1 status post permanent pacemaker implantation. Patient appears to be doing well. X-ray findings unremarkable. Pacemaker interrogated well. Will be followed up as an outpatient.
--- NOTE | 2020-02-19 08:52 | DCINST_ITS ---
Discharge Diet: No Restrictions Discharge Activity: May Not Drive Call your doctor if your incision/area has: Continuous Slow Oozing, Sudden Increased Bleeding, Increased Pain/ Swelling, Increased Redness, Foul Smelling Discharge, Swelling at the incision site Call your doctor if you observe: Fever of 101 or Higher, Shortness of breath, Dizziness, Fainting spells, Swelling in the ankles, Chest pain, Prolonged hiccoughing, Increased palpitations (irregular heartbeat) Suture Line Care: Avoid Pulling/Pushing, Avoid Pinching/Bending Cleanse incision/area with: Keep Dressing Clean & Dry Additional Dressing/Incision Instructions:: When dressing is removed, wash and dry incision. Keep covered with a light bandage if it is rubbing against your clothing. Do not cover the incision with an airtight bandage. Change the bandage daily. Do not remove steri strips. The strips will fall off on their own. Additional Instructions: Signs and Symptoms to Report to Your Doctor at Once - call your doctor's office or Doctor's Registry ([phone]) Call 911 or go to the nearest Emergency Department if you feel you need urgent care. *Infection (fever, increased redness or swelling at the incision site, drainage from the incision increased pain at the pacemaker site) *Shortness of breath *Dizziness *Fainting spells *Swelling in the ankles *Chest pain *Prolonged hiccoughing *Increased palpitaitons (irregular heartbeat) Medications: Take your pain medication as directed. Refer to your discharge instruction sheet for a list of medications you are to take. Allergies/Adverse Reactions: Allergies atorvastatin [From Lipitor] Adverse Reaction (Verified 02/11/20 08:25) MUSCLE PAIN Medications to take at Discharge Fluoxetine HCl 40 mg PO DAILY 03/28/18 Levothyroxine Sodium [Synthroid] 125 mcg PO DAILY 03/28/18 Acetaminophen [Tylenol] 1,000 mg PO Q6H PRN tab 07/25/18 Tamsulosin HCl [Flomax] 0.4 mg PO DAILY@1730 #30 cap 07/25/18 allopurinol 300 mg tablet 300 mg PO DAILY 07/27/18 pantoprazole 40 mg tablet,delayed release 40 mg PO DAILY 08/16/18 furosemide 20 mg tablet 20 mg PO DAILY #30 tab 11/09/18 aspirin 81 mg tablet,delayed release 81 mg PO DAILY #90 tab 04/15/19 meclizine 12.5 mg tablet 12.5 mg PO DAILY 08/24/19 rosuvastatin 10 mg tablet 10 mg PO QHS tab 02/11/20 Dutasteride 0.5 mg PO DAILY 02/18/20 Tizanidine HCl 4 mg PO QHS 02/18/20 Primary Care Physician: Alexandro Lovell MD [Primary Care Provider] - Test Results: Test results from this visit will be discussed in further detail at your follow- up appointment, if applicable. When: 06 march at 11am pacer Proposed Discharge Date: 02/19/20
[2020-02-19 09:23] VITALS: BP 135/51; PULSE 64; RESP 17; TEMP 36.7; O2SAT 95
[2020-02-19] MEDS: Aspirin E.C. 81 MG Tablet PO (09:35)
[2020-02-19] MEDS: Allopurinol 300 MG Tablet PO (09:35)
[2020-02-19] MEDS: Pantoprazole Sodium 40 MG Tablet PO (09:36)
[2020-02-19] MEDS: Meclizine 12.5 MG Tablet PO (09:36)
[2020-02-19] MEDS: Furosemide 20 MG Tablet PO (09:36)
[2020-02-19] MEDS: Rosuvastatin 20 MG Tablet 10 MG PO (09:36)
[2020-02-19] MEDS: FLUoxetine 20 MG Capsule 40 MG PO (09:36)
[2020-02-19 11:05] VITALS: BP 136/59; PULSE 67; RESP 16; TEMP 36.8; O2SAT 92
== END 2020-02-19 08:53 | disposition home or self-care (01) ==
LOC: CLSP 11:23 → PCU 14:28
PROVIDERS: Physician Assistant Medical; PCP Family Medicine; Referring Provider Internal Medicine Cardiovascular Disease; Visit Provider Internal Medicine Cardiovascular Disease
DX: I49.5 Sick sinus syndrome (principal); I25.10 Atherosclerotic heart disease of native coronary artery without angina pectoris; I12.9 Hypertensive chronic kidney disease with stage 1 through stage 4 chronic kidney disease, or unspecified chronic kidney disease; N18.30 Chronic kidney disease, stage 3 unspecified; I48.0 Paroxysmal atrial fibrillation; E78.5 Hyperlipidemia, unspecified; I48.92 Unspecified atrial flutter; I25.2 Old myocardial infarction; F32.9 Major depressive disorder, single episode, unspecified; K21.9 Gastro-esophageal reflux disease without esophagitis; E66.01 Morbid (severe) obesity due to excess calories; Z68.41 Body mass index [BMI] 40.0-44.9, adult; M19.90 Unspecified osteoarthritis, unspecified site; E03.9 Hypothyroidism, unspecified; M10.9 Gout, unspecified; Z86.2 Personal history of diseases of the blood and blood-forming organs and certain disorders involving the immune mechanism; Z87.19 Personal history of other diseases of the digestive system; Z86.19 Personal history of other infectious and parasitic diseases; Z79.82 Long term (current) use of aspirin; Z79.899 Other long term (current) drug therapy
CPT/HCPCS: 33208; 36415; 71046; 71047; 80048; 81001; 85027; 85610; 99152; 99153; J7040; J7050; C1894

== ENCOUNTER → 2020-03-28 13:41 | Outpatient (CLI) | payer MEDICARE, BC, SELFPAY ==
[2020-02-18 14:41] VITALS: BMI 38.0
--- NOTE | 2020-03-28 13:43 | CT_ITS ---
STUDY: CT CHEST WITH CONTRAST REASON FOR EXAM: Male, 84 years old. LYMPHADENOPATHY RADIATION DOSAGE (If Supplied By Facility): CTDIvol = ( 17.71 ) mGy, DLP = ( 883.70 ) mGycm TECHNIQUE: Transaxial imaging was performed following intravenous administration of IV 100ML ISOVUE 300. Multiplanar coronal and sagittal images were reformatted. Individualized dose optimization techniques were used for this CT. COMPARISON: None. FINDINGS: A left-sided dual-chamber pacemaker is seen. Small benign appearing bilateral axillary lymph nodes. 8.3 mm calcified granuloma in the posterior aspect of the left upper lobe. There is evidence of a subpleural scarring with the honeycombing at the lung bases. There is mild degree of peripheral scarring and some pleural cystic changes in the upper lobes. There are calcifications of the coronary arteries. Sternal cerclage wires and vascular clips are present from a prior sternotomy and coronary artery bypass graft procedure (CABG). There are multiple small lymph nodes within the mediastinum, which are normal in size and morphology most compatible with reactive lymph hyperplasia. Normal hilar regions. Normal enhanced pulmonary arteries. There is atherosclerotic calcification of the aortic arch with tortuosity and elongation of the aortic arch and descending thoracic aorta. There are multi-level degenerative changes of the thoracic spine. There is no demonstrated abnormality of the visualized upper abdomen. CT/Chest WITH Contrast IMPRESSION: Scarring at the lung bases. Electronically Signed: Steve Wyatt, at 14:49 EST , Service support ,
[2020-03-28 14:21] LABS: CREATININE FINGERSTICK 1.2 mg/dL (0.70-1.30)
== END ==
PROVIDERS: PCP Family Medicine; Referring Provider Physician Assistant Medical; Visit Provider Physician Assistant Medical
DX: R93.89 Abnormal findings on diagnostic imaging of other specified body structures (principal)
CPT/HCPCS: 71260; Q9967

== ENCOUNTER 2020-11-24 17:11 | Observation (INO) | payer MEDICARE, BC, SELFPAY ==
[2020-04-24 12:56] VITALS: BMI 36.6
[2020-11-24] VITALS (11 sets, daily range): BP systolic 130–149; BP diastolic 63–70; PULSE 60–67; RESP 17–20; TEMP 35.9–36.7; O2SAT 86–96; BMI 35.3; BMI 37.0
--- NOTE | 2020-11-24 17:23 | EKG12_ITS ---
Test Reason : SOB Blood Pressure : / mmHG Vent. Rate : 061 BPM Atrial Rate : 061 BPM P-R Int : 226 ms QRS Dur : 124 ms QT Int : 444 ms P-R-T Axes : -19 -33 189 degrees QTc Int : 446 ms Sinus rhythm with 1st degree A-V block Left axis deviation Non-specific intra-ventricular conduction delay Nonspecific T wave abnormality Abnormal ECG Confirmed by RENE PEOPLES, SARAVANAN ([id number]), fan mail editor ZULY PRAKASH ([id number]) on 11/26/2020 11:50:57 AM Referred By: FIDEL Confirmed By:SARAVANAN LÓPEZ MD
--- NOTE | 2020-11-24 18:18 | RAD_ITS ---
STUDY: X-RAY CHEST REASON FOR EXAM: Male, 85 years old. SOB, cough TECHNIQUE: Frontal and lateral views of the chest. COMPARISON: 02/19/2020. FINDINGS: The lungs are hyperexpanded. There are coarsened interstitial markings suggestive of mild chronic fibrosis. No gross focal infiltrates. Calcified granuloma of the mid left lung. No gross effusions. There is mild cardiac enlargement. Previous CABG. Pacer Normal mediastinum and joey. There is prominence of the pulmonary hilar arteries without peripheral pulmonary vascular congestion, suggesting pulmonary hypertension. There is atherosclerotic calcification of the aortic arch with tortuosity. There are diffuse degenerative changes of the visualized thoracic spine. There is degenerative osteoarthritis of the bilateral shoulders. There is no demonstrated abnormality of the visualized soft tissue structures of the upper abdomen. RAD/Chest PA and Lateral IMPRESSION: There are findings consistent with COPD. There is no evidence of acute chest disease. Electronically Signed: Giorgio Diallo MD at 18:53 EDT , Service support ,
--- NOTE | 2020-11-24 18:21 | EX.ED.DYSGE1 ---
HPI History of Present Illness Chief Complaint: Shortness of Breath Informant: patient Narrative Narrative: Patient is an 85-year-old male with a past medical history of CAD, atrial fibrillation, bypass who presents to the emergency department for cough and shortness of breath. He states that he had a pneumonia at the same time he was found to have his heart attack 2 years ago. He has had this cough and shortness of breath since then. He feels like it has been worsening lately. His physician gave him a referral to see pulmonology but cannot get in to him until next month. He gets some palpitations whenever he lies flat. He does not feel like lying flat makes his shortness of breath worse. He does bring up a sputum occasionally. He does have breathing exercises he does at home in the morning in the evenings. He denies any fevers but does sometimes get chills intermittently. Denies any abdominal pain or nausea/vomiting/diarrhea. No leg swelling or calf pain. He has a distant smoking history [facility] Medical History (Updated 11/24/20 @ 21:[address] Jamarcus Meneses, ) Acute blood loss anemia Atherosclerotic heart disease of [place] coronary artery without angina pectoris Atrial flutter Cellulitis Chest pain Chronic renal insufficiency CKD (chronic kidney disease) stage 3, GFR 30-59 ml/min Depression Dizziness Essential hypertension GERD (gastroesophageal reflux disease) GI bleed Gout Healthcare associated bacterial pneumonia HTN (hypertension) Hyperkalemia Hyperlipidemia Hypothyroidism Macrocytic anemia Morbid obesity with BMI of 40.0-44.9, adult NSTEMI (non-ST elevated myocardial infarction) Old myocardial infarction Osteoarthritis Paroxysmal atrial fibrillation Retinal artery occlusion Sepsis Sick sinus syndrome Home Medications fluoxetine 40 mg PO DAILY 03/28/18 [History Last Taken 02/18/20] levothyroxine 125 mcg PO DAILY 03/28/18 [History Last Taken 02/18/20] acetaminophen 1,000 mg PO Q6H PRN tab 07/25/18 [Rx Last Taken 02/17/20] tamsulosin 0.4 mg PO DAILY@1730 #30 cap 07/25/18 [Rx Last Taken 02/17/20] allopurinol 300 mg tablet 300 mg PO DAILY 07/27/18 [History Last Taken 02/17/20] pantoprazole 40 mg tablet,delayed release 40 mg PO DAILY 08/16/18 [History Last Taken 02/18/20] meclizine 12.5 mg tablet 12.5 mg PO DAILY 08/24/19 [History Last Taken 02/17/20] rosuvastatin 10 mg tablet 10 mg PO QHS tab 02/11/20 [History Last Taken 02/17/20] dutasteride 0.5 mg PO DAILY 02/18/20 [History Last Taken 02/17/20] apixaban 5 mg tablet 2.5 mg PO BID #180 tab 03/06/20 [Rx Last Taken Unknown] furosemide 20 mg tablet 40 mg PO DAILY tab 04/24/20 [History Last Taken Unknown] aspirin 81 mg tablet,delayed release See Rx Instructions .ROUTE .COMPLEX #90 tab 06/30/20 [Rx Last Taken Unknown] Allergy/AdvReac Type Severity Reaction Status Date / Time atorvastatin [From Lipitor] AdvReac MUSCLE PAIN Verified 11/24/20 17:13 Family History Father Cancer Lung Heart disease Myocardial infarction Surgical History History of bilateral hip replacements History of permanent cardiac pacemaker placement (02/18/20) S/P bilateral foot surgery S/P coronary artery bypass graft x 2 (~06/23/18) Social History Smoking Status: Former smoker how long ago did patient quit smokin years ago alcohol intake: never substance use type: does not use caffeine: No what type of physical activity do you participate in: walking frequency: daily ROS ROS ED Constitutional Constitutional ED: Denies chills or fever(s) Eyes Eyes: Denies change in vision ENT ENT ED: Denies epistaxis or rhinorrhea Cardiovascular Cardiovascular: Reports palpitations; Denies chest pain Respiratory/Chest Respiratory/Chest: Reports cough, dyspnea and sputum Gastrointestinal Gastrointestinal: Denies abdominal pain, diarrhea, nausea or vomiting Genitourinary Genitourinary ED: Denies dysuria, hematuria or urinary frequency Musculoskeletal Musculoskeletal: Denies back pain or neck pain Integumentary Denies rash Neurologic Neurologic: Denies dizziness, headache(s) or weakness EXAM Physical Exam Const Vital Signs: 11/24/20 17:13 11/24/20 17:20 11/24/20 17:29 Temperature 96.6 F L Temperature Source Temporal Pulse Rate 62 60 Respiratory Rate 18 17 Respiratory Effort Respiratory Depth Respiratory Pattern Blood Pressure 138/64 H 137/64 H Blood Pressure Mean 88 88 Pulse Ox 86 87 93 Oxygen Delivery Method Room Air Room Air Nasal Cannula Oxygen Flow Rate (L/min) 2 11/24/20 17:30 11/24/20 18:05 11/24/20 18:27 Temperature Temperature Source Pulse Rate 60 Respiratory Rate 18 Respiratory Effort Normal Non-Labored Respiratory Depth Normal Respiratory Pattern Normal Blood Pressure 130/63 H Blood Pressure Mean 85 Pulse Ox 92 Oxygen Delivery Method Nasal Cannula Nasal Cannula Nasal Cannula Oxygen Flow Rate (L/min) 2 2 2 11/24/20 19:26 11/24/20 20:23 Temperature Temperature Source Pulse Rate 67 61 Respiratory Rate 20 H 18 Respiratory Effort Normal Respiratory Depth Normal Respiratory Pattern Normal Blood Pressure 149/70 H Blood Pressure Mean 96 Pulse Ox 95 94 Oxygen Delivery Method Nasal Cannula Nasal Cannula Oxygen Flow Rate (L/min) 2 2 Positive well nourished and well developed General Appearance ED: well developed and NAD HEENT Reports normocephalic and head/scalp atraumatic Eyes PERRL and EOMs intact bilaterally Neck supple Chest Wall inspection of chest normal Resp normal respiratory effort Resp Narrative: Coarse breath sounds heard throughout. No significant increased work of breathing. Able speak in full sentences. Cardio regular rate, regular rhythm and no murmurs GI normal to inspection, nondistended, normoactive bowel sounds and non-tender Palpation: soft; Negative for guarding or rebound tenderness present Back/Spine no CVA tenderness Extremity normal to inspection General Extremety ED: Negative for edema or tenderness General Extremity: Negative for edema Neuro CN's II-XII intact bilaterally and no sensory deficits noted Sensorium / Orientation: alert Motor Exam: strength 5/5 throughout Psych mental status grossly normal Skin no rashes or lesions noted MDM MDM MDM Narrative Medical decision making narrative: Patient presents the ED for chronic cough and shortness of breath which she believes is worsening. On arrival to the emergency department he satting 86% on room air. He is started on supplemental oxygen. The rest of his vital signs within normal limits. Chest x-ray, basic lab work and EKG being obtained. Patient's lab work does not reveal him to be anemic or have a high white blood cell count. His creatinine is mildly elevated at 1.61. His BNP is mildly elevated but does not show any fluid overload on the chest x-ray. His troponin is well within normal limits. CT angio is being performed. Started on IV fluids as well. This did not show any evidence of PE. There is some fibrosis as well as emphysematous changes. After breathing treatment patient attempted to ambulate and desatted quickly to the high 70s on room air. He does not have supplemental oxygen at home. Will require hospitalization as he is not stable for discharge. He is given a dose of Solu-Medrol given his cough, COPD and sputum production. Will bring into the hospital for further evaluation and management this time. He understands and is agreeable with this plan. Lab Data Labs: Laboratory Results - last 24 hr 11/24/20 11/24/20 11/24/20 17:25 17:25 17:25 WBC 9.2 RBC 4.70 Hgb 13.6 Hct 44.0 MCV 93.6 MCH 28.9 MCHC 30.9 L RDW Std Deviation 51.3 H RDW Coeff of Thang 15.1 H Plt Count 179 MPV 10.2 Immature Gran % (Auto) 1.200 H Neut % (Auto) 70.6 H Lymph % (Auto) 17.1 L [place] % (Auto) 7.2 Eos % (Auto) 3.4 Baso % (Auto) 0.5 Absolute Neuts (auto) 6.5 Absolute Lymphs (auto) 1.57 Nucleated RBC % 0 Sodium 139 Potassium 4.2 Chloride 104 Carbon Dioxide 29.0 Anion Gap 6 BUN 44 H Creatinine 1.61 H Estim Creat Clear Calc 39.71 Est GFR (MDRD) Af Amer 53 L Est GFR (MDRD) Non-Af 44 L BUN/Creatinine Ratio 27.3 H Glucose 140 H Calcium 8.9 Troponin I High Sens 40.6 B-Natriuretic Peptide 138.6 H Radiography Diagnostic Testing: Radiology Impression Chest X-Ray 11/24/20 18:18 IMPRESSION: There are findings consistent with COPD. There is no evidence of acute chest disease. Electronically Signed: Giorgio Diallo MD at 18:53 EDT , Service support , Chest CTA 11/24/20 19:58 IMPRESSION: Normal CTA chest examination, without a demonstrated pulmonary embolism or arterial dissection. Fibrotic chronic pulmonary disease. Electronically Signed: Giorgio Diallo MD at 21:19 EDT , Service support , EKG Initial EKG: Attestation: I personally reviewed and interpreted this EKG as follows: (Rate of 61 bpm and normal sinus rhythm. Prolonged AL interval with first-degree AV block. Borderline prolonged QRS. Left axis deviation. No significant ST elevations or depressions.) Discharge Plan Triage Chief Complaint: Shortness of Breath Other Complaint: Cough ED Provider: Jamarcus Meneses Dx/Rx/DC Orders Clinical Impression: Hypoxia, Cough, Pulmonary fibrosis, COPD (chronic obstructive pulmonary disease) Prescriptions: No Action allopurinol 300 mg tablet 300 mg PO DAILY RF: 0 meclizine 12.5 mg tablet 12.5 mg PO DAILY RF: 0 pantoprazole 40 mg tablet,delayed release (DR/EC) 40 mg PO DAILY RF: 0 furosemide 20 mg tablet 40 mg PO DAILY RF: 0 rosuvastatin 10 mg tablet 10 mg PO QHS RF: 0 Eliquis 5 mg tablet 2.5 mg PO BID Qty: 180 RF: 3 fluoxetine 40 MG capsule 40 mg PO DAILY RF: 0 levothyroxine 125 MCG tablet 125 mcg PO DAILY RF: 0 acetaminophen 500 MG tablet 1,000 mg PO Q6H PRN (Reason: Mild Pain (-07/23)) RF: 0 tamsulosin 0.4 MG capsule 0.4 mg PO DAILY@1730 Qty: 30 RF: 0 dutasteride 0.5 MG capsule 0.5 mg PO DAILY RF: 0 aspirin 81 mg tablet,delayed release (DR/EC) See Rx Instructions .ROUTE .COMPLEX Qty: 90 RF: 4 Primary Care Provider: Alexandro Lovell Referrals: Alexandro Lovell MD [Primary Care Provider] - Disposition Disposition: Home, Self Care
[2020-11-24 18:24] LABS: Absolute Lymphocyte Count 1.57 X10^3/uL (0.83-4.51); Absolute Neutrophil Count 6.5 X10^3/uL (2.0-7.7); Basophil# 0.05 X10^3/uL; Basophil% 0.5 % (0-1); Eosinophil# 0.31 X10^3/uL; Eosinophils% 3.4 % (0-5); Hemoglobin 13.6 g/dL (13.0-16.5); Lymphocyte # 1.57 X10^3/ul (0.83-4.51); Lymphocyte % 17.1 % (19-41); Mean Corp Hgb Conc 30.9 g/dL (32-36); Mean Corpuscular Hgb 28.9 pg (27.0-32.0); Mean Corpuscular Volume 93.6 fL (80-94); Mean Platelet Vol. 10.2 fl (6.2-12.0); Monocyte# 0.66 X10^3/uL; Monocyte% 7.2 % (0-10); NRBC Flagged by Analyzer 0 % (0-5); Neutrophil # 6.48 X10^3/uL (2.7-7.7); Neutrophil % 70.6 % (47-70); Platelet Count 179 K/mm3 (150-450); RBC Distribution Width CV 15.1 % (11.6-14.6); RBC Distribution Width SD 51.3 fl (35.1-43.9); White Blood Count 9.2 K/mm3 (4.4-11.0)
[2020-11-24 18:45] LABS: Anion Gap 6 (5-15); BUN 44 mg/dL (7-18); BUN/Creat Ratio 27.3 RATIO (10-20); Calcium,Total 8.9 mg/dL (8.5-10.1); Chloride 104 mmol/L (98-107); Creatinine, Serum 1.61 mg/dL (0.70-1.30); EST Glomerular Filtration Rate 44 mL/min (>60); Est Glom Filt Rate - Afr Amer 53 mL/min (>60); Estimated Creatinine Clearance 39.71 ml/min; Glucose 140 mg/dL (74-106); Potassium 4.2 mmol/L (3.5-5.1); Sodium Level 139 mmol/L (136-145); Troponin-I HS 40.6 pg/mL (3.0-78.5)
[2020-11-24 18:46] LABS: BNP,B-Type NATRIURETIC PEPTIDE 138.6 pg/mL (0-100)
[2020-11-24] MEDS: Ipratropium/Albuterol Sulfate 3 ML AMPUL.NEB INHALATION ×2 (19:26→23:09)
--- NOTE | 2020-11-24 19:53 | ED.RN ---
SPO2 84% ON ROOM AIR WHILE STANDING BESIDE BED TO USE URINAL.
--- NOTE | 2020-11-24 19:58 | CT_ITS ---
STUDY: CTA CHEST REASON FOR EXAM: Male, 85 years old. Hypoxia RADIATION DOSAGE (If Supplied By Facility): CTDIvol = ( 21.05 ) mGy, DLP = ( 579.52 ) mGycm TECHNIQUE: The examination was performed with the intravenous administration of IV 100mL Isovue-370. Post-processing of the angiographic images was performed, with multiplanar reformation and 3D reconstruction. Individualized dose optimization techniques were used for this CT. COMPARISON: None. FINDINGS: Normal enhancement of the main pulmonary artery and right and left pulmonary arteries. Normal enhancement of the bilateral peripheral pulmonary arteries. There is no demonstrated pulmonary embolism. Normal thoracic aorta and visualized great vessels. There is no demonstrated aortic dissection. Sternal cerclage wires and vascular clips are present from a prior sternotomy and coronary artery bypass graft procedure (CABG). There are calcifications of the coronary arteries. Normal mediastinum. Normal hilar regions. Normal visualized trachea and bronchi. The lungs are hyper expanded, with flattening of the hemidiaphragms. Chronic fibrotic changes are seen throughout both lungs. No infiltrates. No effusions. There are degenerative changes of thoracic spine. Normal visualized upper abdomen. CT/CTA Chest W/WO Contrast IMPRESSION: Normal CTA chest examination, without a demonstrated pulmonary embolism or arterial dissection. Fibrotic chronic pulmonary disease. Electronically Signed: Giorgio Diallo MD at 21:19 EDT , Service support ,
--- NOTE | 2020-11-24 20:34 | RAD.NOTE ---
While pt was receiving IV Isovue 370, pt's 20g IV in the Right AC extravasated. Contrast injection was stopped, 10 ml syringe attached, and fluid was aspirated. IV was removed. Swelling had completely gone away. Warm Compress was applied and extremity was elevated. IV contrast extravasation worksheet was completed and given to pt's primary nurse Lucy, copy made and given to Imaging nurse for follow up. Exam was completed using 20 g IV in left distal forearm.
[2020-11-24] MEDS: MethylPREDNISolone 125 MG/2 ML Vial IV (21:43)
--- NOTE | 2020-11-24 22:16 | HP.PCM_ITS ---
Documented by User: Ashtyn Bo NP-C 11/24/20 22:44 HPI - General General Date of Admission: 11/24/20 Date of Service: 11/24/20 Chief Complaint: Cough, shortness of breath HPI Narrative HIRAM KRUEGER, is a 85 M who presents with increasing cough. Patient states that he had open heart and pneumonia approximately 2 years ago and since then he has had increased cough which leads to shortness of breath. Patient states that lately this cough has become worse and he feels like he has junk stuck in his chest which he is unable to bring up. Patient states that he has been getting worked up by PCP and was recently referred to pulmonology however his appointment is not for another month. Upon presentation to the ER patient's pulse ox was 86% on room air, not currently on home oxygen. Patient denies fever, chills, chest pain, nausea, vomiting. [facility] Medical History (Updated 11/24/20 @ 22:28 by Ashtyn Bo NP-C) Acute blood loss anemia Atherosclerotic heart disease of [place] coronary artery without angina pectoris Atrial flutter Cellulitis Chest pain Chronic renal insufficiency CKD (chronic kidney disease) stage 3, GFR 30-59 ml/min Depression Dizziness Essential hypertension GERD (gastroesophageal reflux disease) GI bleed Gout Healthcare associated bacterial pneumonia (Unknown) HTN (hypertension) Hyperkalemia Hyperlipidemia Hypothyroidism Macrocytic anemia Morbid obesity with BMI of 40.0-44.9, adult NSTEMI (non-ST elevated myocardial infarction) Old myocardial infarction Osteoarthritis Paroxysmal atrial fibrillation Retinal artery occlusion Sepsis Sick sinus syndrome Home Medications fluoxetine 40 mg PO DAILY 03/28/18 [History Last Taken 02/18/20] levothyroxine 125 mcg PO DAILY 03/28/18 [History Last Taken 02/18/20] acetaminophen 1,000 mg PO Q6H PRN tab 07/25/18 [Rx Last Taken 02/17/20] tamsulosin 0.4 mg PO DAILY@1730 #30 cap 07/25/18 [Rx Last Taken 02/17/20] allopurinol 300 mg tablet 300 mg PO DAILY 07/27/18 [History Last Taken 02/17/20] pantoprazole 40 mg tablet,delayed release 40 mg PO DAILY 08/16/18 [History Last Taken 02/18/20] meclizine 12.5 mg tablet 12.5 mg PO DAILY 08/24/19 [History Last Taken 02/17/20] rosuvastatin 10 mg tablet 10 mg PO QHS tab 02/11/20 [History Last Taken 02/17/20] dutasteride 0.5 mg PO DAILY 02/18/20 [History Last Taken 02/17/20] apixaban 5 mg tablet 2.5 mg PO BID #180 tab 03/06/20 [Rx Last Taken Unknown] furosemide 20 mg tablet 40 mg PO DAILY tab 04/24/20 [History Last Taken Unknown] aspirin 81 mg tablet,delayed release See Rx Instructions .ROUTE .COMPLEX #90 tab 06/30/20 [Rx Last Taken Unknown] Allergy/AdvReac Type Severity Reaction Status Date / Time atorvastatin [From Lipitor] AdvReac MUSCLE PAIN Verified 11/24/20 17:13 Family History Father Cancer Lung Heart disease Myocardial infarction Surgical History (Updated 11/24/20 @ 22:27 by GREGORIO RamirezC) History of bilateral hip replacements History of permanent cardiac pacemaker placement (02/18/20) S/P coronary artery bypass graft x 2 (~06/23/18) Social History Smoking Status: Former smoker how long ago did patient quit smokin years ago alcohol intake: never substance use type: does not use caffeine: No what type of physical activity do you participate in: walking frequency: daily ROS Constitutional Constitutional: Reports fatigue; Denies anorexia, chills, fever(s) or weakness Cardiovascular Cardiovascular: Denies chest pain, edema or palpitations Respiratory/Chest Respiratory/Chest: Reports chest congestion, cough, shortness of breath with exertion and tachypnea Gastrointestinal Gastrointestinal: Denies abdominal pain, constipation, diarrhea, nausea or vomiting Genitourinary Genitourinary: Denies dysuria Musculoskeletal Musculoskeletal: Denies back pain, extremity pain, joint pain or joint stiffness Integumentary Integumentary: Denies dry skin Neurologic Neurologic: Denies abnormal gait, abnormal speech, confusion or dizziness Psychiatric Psychiatric: Denies anxiety or depression Endocrine Endocrinology: Denies change in body appearance Hematologic/Lymphatic Hematologic/Lymphatic: Denies easy bleeding or easy bruising Vital Signs Vital Signs Vital Signs: 11/24/20 17:13 11/24/20 17:20 11/24/20 17:29 Temperature 96.6 F L Temperature Source Temporal Pulse Rate 62 60 Respiratory Rate 18 17 Respiratory Effort Respiratory Depth Respiratory Pattern Blood Pressure 138/64 H 137/64 H Blood Pressure Mean 88 88 Pulse Ox 86 87 93 Oxygen Delivery Method Room Air Room Air Nasal Cannula Oxygen Flow Rate (L/min) 2 11/24/20 17:30 11/24/20 18:05 11/24/20 18:27 Temperature Temperature Source Pulse Rate 60 Respiratory Rate 18 Respiratory Effort Normal Non-Labored Respiratory Depth Normal Respiratory Pattern Normal Blood Pressure 130/63 H Blood Pressure Mean 85 Pulse Ox 92 Oxygen Delivery Method Nasal Cannula Nasal Cannula Nasal Cannula Oxygen Flow Rate (L/min) 2 2 2 11/24/20 19:26 11/24/20 20:23 11/24/20 21:52 Temperature 98.1 F Temperature Source Temporal Pulse Rate 67 61 67 Respiratory Rate 20 H 18 20 H Respiratory Effort Normal Respiratory Depth Normal Respiratory Pattern Normal Blood Pressure 149/70 H 140/69 H Blood Pressure Mean 96 92 Pulse Ox 95 94 96 Oxygen Delivery Method Nasal Cannula Nasal Cannula Nasal Cannula Oxygen Flow Rate (L/min) 2 2 2 Weight Weight: 275 lb 0.012 oz Body Mass Index (BMI) 35.3 Physical Exam Const alert, oriented x3 and no apparent distress General Appearance: cooperative HEENT normocephalic and head/scalp atraumatic Eyes conjunctivae normal and no scleral icterus Neck supple and no JVD General: trachea midline Resp Effort and Inspection: tachypneic Auscultation: rhonchi left lower and right lower and wheezes expiratory wheezes, left upper and right upper Cardio regular rate, regular rhythm, S1 normal heart sound, S2 normal heart sound and peripheral pulses 2+ throughout GI normal to inspection, nondistended, normoactive bowel sounds, soft to palpation and non-tender Extremity normal capillary refill and no clubbing, cyanosis or edema General Extremity: no tenderness to palpation of joints or extremities Skin General Skin Exam: no breakdown and turgor normal Lesions: no lesions Rashes: no rashes Neuro no focal motor deficits and no sensory deficits noted Speech: speech normal Motor Exam: general weakness Psych thought process normal, cooperative and affect normal Appearance: appropriate Results Lab / Micro Data Result Diagrams: 11/24/20 17:25 11/24/20 17:25 Labs: Laboratory Results - last 24 hr 11/24/20 17:25: WBC 9.2, RBC 4.70, Hgb 13.6, Hct 44.0, MCV 93.6, MCH 28.9, MCHC 30.9 L, RDW Std Deviation 51.3 H, RDW Coeff of Thang 15.1 H, Plt Count 179, MPV 10.2, Immature Gran % (Auto) 1.200 H, Neut % (Auto) 70.6 H, Lymph % (Auto) 17.1 L, [place] % (Auto) 7.2, Eos % (Auto) 3.4, Baso % (Auto) 0.5, Absolute Neuts (auto) 6.5, Absolute Lymphs (auto) 1.57, Nucleated RBC % 0 11/24/20 17:25: Sodium 139, Potassium 4.2, Chloride 104, Carbon Dioxide 29.0, Anion Gap 6, BUN 44 H, Creatinine 1.61 H, Estim Creat Clear Calc 39.71, Est GFR (MDRD) Af Amer 53 L, Est GFR (MDRD) Non-Af 44 L, BUN/Creatinine Ratio 27.3 H, Glucose 140 H, Calcium 8.9, Troponin I High Sens 40.6 11/24/20 17:25: B-Natriuretic Peptide 138.6 H Micro: Microbiology 11/24/20 21:45 Nasal Secretion SARS-CoV-2 Antigen (Rapid) - Final Radiology Impression Chest X-Ray 11/24/20 18:18 IMPRESSION: There are findings consistent with COPD. There is no evidence of acute chest disease. Electronically Signed: Giorgio Diallo MD at 18:53 EDT , Service support , Chest CTA 11/24/20 19:58 IMPRESSION: Normal CTA chest examination, without a demonstrated pulmonary embolism or arterial dissection. Fibrotic chronic pulmonary disease. Electronically Signed: Giorgio Diallo MD at 21:19 EDT , Service support , Assessment & Plan Assessment/Plan (1) COPD (chronic obstructive pulmonary disease): QUALIFIERS: COPD type: unspecified COPD Qualified Code(s): J44.9 - Chronic obstructive pulmonary disease, unspecified PLAN: 1. COPD exacerbation -Admit to [facility] for observation, chest x-ray and CTA negative for acute findings, findings consistent with COPD -Encourage incentive spirometry and Pep therapy -Oxygen per protocol, currently on 2 L nasal cannula, no oxygen use at home -Sputum culture ordered -Scheduled DuoNeb nebulizer treatments with as needed albuterol ordered -IV Solu-Medrol ordered, first dose given in ER -PO Mucinex initiated -Procalcitonin stat -CBC and BMP ordered daily, currently white count is not elevated, trend daily -Consult pulmonology 2. Paroxysmal A. fib -Patient currently normal sinus rhythm heart rate 61, continue Eliquis. 3. Hypertension -Current BP mildly elevated, continue furosemide -Vital signs per protocol, trend BP and heart rate 4. Hypothyroidism -Continue current dose of levothyroxine 5. Chronic kidney disease stage III, GFR 30-59 mils per minute -BUN, creatinine, GFR consistent with patient baseline -BMP ordered daily, trend 6. BPH -Currently well controlled per patient, continue dutasteride and tamsulosin -Check intake and output 7. Depression -Continue fluoxetine 8. Obesity BMI 35.0-39.9 -Encourage lifestyle modification including diet and exercise -BMI improved from previous admission DVT prophylaxis-SCDs, chronically anticoagulated with Eliquis This patient was seen by GREGORIO RamirezC under the supervision of Dr. Georges. Documented by User: Dr. Jamarcus Georges MD 11/24/20 22:48 HPI - General General Date of Admission: 11/24/20 [facility] Medical History (Updated 11/24/20 @ 22:28 by Ashtyn Bo NP-C) Acute blood loss anemia Atherosclerotic heart disease of [place] coronary artery without angina pectoris Atrial flutter Cellulitis Chest pain Chronic renal insufficiency CKD (chronic kidney disease) stage 3, GFR 30-59 ml/min Depression Dizziness Essential hypertension GERD (gastroesophageal reflux disease) GI bleed Gout Healthcare associated bacterial pneumonia (Unknown) HTN (hypertension) Hyperkalemia Hyperlipidemia Hypothyroidism Macrocytic anemia Morbid obesity with BMI of 40.0-44.9, adult NSTEMI (non-ST elevated myocardial infarction) Old myocardial infarction Osteoarthritis Paroxysmal atrial fibrillation Retinal artery occlusion Sepsis Sick sinus syndrome Home Medications fluoxetine 40 mg PO DAILY 03/28/18 [History Last Taken 02/18/20] levothyroxine 125 mcg PO DAILY 03/28/18 [History Last Taken 02/18/20] acetaminophen 1,000 mg PO Q6H PRN tab 07/25/18 [Rx Last Taken 02/17/20] tamsulosin 0.4 mg PO DAILY@1730 #30 cap 07/25/18 [Rx Last Taken 02/17/20] allopurinol 300 mg tablet 300 mg PO DAILY 07/27/18 [History Last Taken 02/17/20] pantoprazole 40 mg tablet,delayed release 40 mg PO DAILY 08/16/18 [History Last Taken 02/18/20] meclizine 12.5 mg tablet 12.5 mg PO DAILY 08/24/19 [History Last Taken 02/17/20] rosuvastatin 10 mg tablet 10 mg PO QHS tab 02/11/20 [History Last Taken 02/17/20] dutasteride 0.5 mg PO DAILY 02/18/20 [History Last Taken 02/17/20] apixaban 5 mg tablet 2.5 mg PO BID #180 tab 03/06/20 [Rx Last Taken Unknown] furosemide 20 mg tablet 40 mg PO DAILY tab 04/24/20 [History Last Taken Unknown] aspirin 81 mg tablet,delayed release See Rx Instructions .ROUTE .COMPLEX #90 tab 06/30/20 [Rx Last Taken Unknown] Allergy/AdvReac Type Severity Reaction Status Date / Time atorvastatin [From Lipitor] AdvReac MUSCLE PAIN Verified 11/24/20 17:13 Family History Father Cancer Lung Heart disease Myocardial infarction Surgical History (Updated 11/24/20 @ 22:27 by TATUM Ramirez) History of bilateral hip replacements History of permanent cardiac pacemaker placement (02/18/20) S/P coronary artery bypass graft x 2 (~06/23/18) Social History Smoking Status: Former smoker how long ago did patient quit smokin years ago alcohol intake: never substance use type: does not use caffeine: No what type of physical activity do you participate in: walking frequency: daily Results Lab / Micro Data Result Diagrams: 11/24/20 17:25 11/24/20 17:25 Charges/Coding Addendum Addendum: Patient was seen and examined independently. I agree with assessment and plan by GREGORIO RamirezC Patient is an 85-year-old male with a significant history of pulmonary fibrosis; CABG; COPD; sick sinus syndrome; and permanent pacemaker who presents to the emergency department with progressively worsening productive cough. The color of the sputum is yellow. In the past months his symptoms has worsened. He saw somebody on the day of presentation who thought that he (patient) should seek medical care so he followed through with the advice. His shortness of breath began 2 years ago after a double CABG where he had pneumonia at the same time. He denies or chills. He reports orthopnea. He denies paroxysmal nocturnal dyspnea. He reports history of exposure to dust. In the past he was told that he may be having chronic laryngitis. On this presentation patient was found to be hypoxic with oxygen saturation in the 70s while at the emergent department so a decision was made for patient to stay in the hospital. Reportedly he is scheduled to see Dr. Aj, lieutenant ballistics in December 2020. Physical exam: General: Well-nourished, well-developed with raspy voice. Head: Normocephalic, atraumatic, no tenderness Eyes: PERRLA, EOMI ENT, no trauma, moist mucous membranes, no rhinorrhea Neck: Nontender, full range of motion, no spinal tenderness, deformities, step- off CVS: Regular rate and rhythm Respiratory: Wheezing; rhonchi; rales Abdomen: Soft, nontender, nondistended, normal bowel sounds, no masses : Deferred Extremities: Nontender full range of motion, no trauma Skin: Normal color, no trauma, abrasions Neuro: Alert, oriented, cranial nerves II through XII grossly intact; raspy voice. Progressively worsening COPD/pulmonary fibrosis Impression of chest x-ray by radiology: Findings consistent COPD. There is no evidence of acute chest disease. Actual chest x-ray image was independently interpreted and I agree radiologist interpretation. Chest CTA without dissection or embolism. With fibrotic chronic pulmonary disease. Schedule [id number] breathing treatment. Received Solu-Medrol at emergent department continued. Continue supplemental oxygen started at the emergency department. Mucinex ordered. Incentive spirometer and Acapella ordered. Patient may be a candidate of supplemental oxygen on discharge. Pulmonology consult. DVT prophylaxis: Subcutaneous Lovenox. Visit Charges OBSV E&M: 61992 Initial observation care L3
[2020-11-25] VITALS (8 sets, daily range): BP systolic 118–143; BP diastolic 62–68; PULSE 69–82; RESP 18–24; TEMP 36.6; O2SAT 86–95
[2020-11-25] MEDS: Ipratropium/Albuterol Sulfate 3 ML AMPUL.NEB INHALATION ×3 (03:27→10:34)
[2020-11-25] MEDS: Levothyroxine 125 MCG Tablet PO (05:49)
[2020-11-25 06:12] LABS: Absolute Lymphocyte Count 0.41 X10^3/uL (0.83-4.51); Absolute Neutrophil Count 6.7 X10^3/uL (2.0-7.7); Basophil# 0.03 X10^3/uL; Basophil% 0.4 % (0-1); Eosinophil# 0.01 X10^3/uL; Eosinophils% 0.1 % (0-5); Hemoglobin 13.7 g/dL (13.0-16.5); Lymphocyte # 0.41 X10^3/ul (0.83-4.51); Lymphocyte % 5.6 % (19-41); Mean Corp Hgb Conc 30.4 g/dL (32-36); Mean Corpuscular Hgb 28.3 pg (27.0-32.0); Mean Platelet Vol. 9.8 fl (6.2-12.0); Monocyte# 0.05 X10^3/uL; Monocyte% 0.7 % (0-10); NRBC Flagged by Analyzer 0 % (0-5); Neutrophil % 91.7 % (47-70); POSITIVE DIFFERENTIAL YES; POSITIVE MORPHOLOGY YES; Platelet Count 154 K/mm3 (150-450); RBC Distribution Width CV 14.8 % (11.6-14.6); Red Blood Count 4.84 M/mm3 (4.6-6.2); White Blood Count 7.3 K/mm3 (4.4-11.0)
[2020-11-25 06:19] LABS: Differential Indicated SCAN CRITERIA MET
--- NOTE | 2020-11-25 06:21 | CON.PCM.CC_ITS ---
Assessment & Plan Assessment/Plan (1) Acute hypoxemic respiratory failure: PLAN: RECOMMENDATIONS: 1. Continue scheduled bronchodilators and steroids. 2. Wean supplemental oxygen to maintain saturations at or above 90%. 3. Encourage incentive spirometer use and mobilize patient as tolerated. 4. Please provide patient with prescription for home-going supplemental O2. 5. At discharge, please send home with albuterol every 4 hours as needed along with prednisone 40 mg daily x5 days. 6. Recommend outpatient PFTs and sleep study. 7. The patient is currently scheduled to follow-up in the pulmonary medicine clinic on the at 8:45 AM. IMPRESSIONS: 1. Acute hypoxemic respiratory failure The patient initially presented to the hospital with reports of shortness of breath, nonproductive cough and new supplemental oxygen requirement. Although there is documentation of COPD, the patient has never been formally evaluated by a headrig sawyer, nor has he ever completed any pulmonary function studies. I do suspect that the patient's oxygen requirement has likely been a chronic issue that has only recently been brought to light. He does have chronic interstitial changes noted on his CTA chest, likely the consequence of his prior occupational/environmental exposure history. At this time, I would recommend that the patient be placed on supplemental oxygen as needed to maintain saturations above 88%. I do anticipate a home-going supplemental oxygen need. Following discharge, I would recommend that he follow-up in the pulmonary medicine clinic so that baseline pulmonary function studies can be obtained. In the interim, the patient can be discharged home on an albuterol rescue inhaler to be utilized every 4 hours as needed along with a 5-day burst of prednisone 40 mg daily. 2. Daytime fatigue/nonrestorative sleep The patient does endorse symptoms concerning for underlying sleep disordered breathing. I did explain to the patient that he would be a candidate to undergo a diagnostic polysomnogram to evaluate for the presence of sleep apnea. Orders for the sleep study can be placed upon his follow-up office visit in the pulmonary medicine clinic. 3. Remote smoking history, now in remission The patient does have a smoking history, but quit 40 years ago. As noted above, I would recommend that baseline PFTs be obtained upon discharge from the hospital. CODE status: Discussed CODE status at length including difference between FULL code, DNR-CCA and DNR-CC status. Following discussions about the differences in these status, patient requested DNR-CCA, DNI CODE STATUS. 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 It may contain incorrect words, spelling, and punctuation that were not noted in checking the note before signing. HPI Consult Data Date of Consult: 11/25/20 HPI Narrative Reason for Consultation: COPD exacerbation HPI Narrative: The patient is an 85-year-old male, with a history as outlined below, who presented to the emergency department on November 24 with complaints of shortness of breath and cough. The patient does have a history of coronary artery disease status post CABG, sick sinus syndrome status post pacemaker placement in February 2020, history of gastrointestinal bleeding and chronic renal insufficiency. The patient is currently followed by Dr. Parker in the cardiology clinic. The patient has a smoking history that includes 1.5 packs of cigarettes per day x20 years, having quit completely 40 years ago. He has never been formally evaluated by a headrig sawyer. He does not currently utilize supplemental oxygen at his baseline, nor does utilize any inhalers. 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 He does report a great deal of prior occup ational/environmental dust exposure due to his occupation. He also reports the presence of nonrestorative sleep and daytime fatigue. He has never had a sleep study performed in the past. In addition to occasional dyspnea and nonproductive cough, he states that when ambulating long distances that he oftentimes becomes unsteady on his feet, dizzy and lightheaded. On presentation to the emergency department, the patient was noted to be afebrile and hemodynamically stable. He was initially documented to be saturating 86% on room air. Laboratory evaluation revealed a normal white blood cell count. Hemoglobin was noted to be 13.6 g/dL. Chemistry profile was notable for a creatinine of 1.61. Troponin was negative. BNP was only mildly elevated to 138. CTA chest was obtained which failed to demonstrate evidence of PE. There was evidence of bilateral emphysematous changes. Chronic subpleural interstitial changes were also noted along with some evidence of basilar bronchiectasis. The patient was placed on scheduled bronchodilators and IV steroids. He was subsequently admitted to the progressive care unit for further management. [facility], LAT[facility] Medical History (Updated 11/25/20 @ 06:[address] Frank Brown, DO) Acute blood loss anemia Atherosclerotic heart disease of [place] coronary artery without angina pectoris Atrial flutter Cellulitis Chest pain Chronic renal insufficiency CKD (chronic kidney disease) stage 3, GFR 30-59 ml/min Depression Dizziness Essential hypertension GERD (gastroesophageal reflux disease) GI bleed Gout Healthcare associated bacterial pneumonia (Unknown) HTN (hypertension) Hyperkalemia Hyperlipidemia Hypothyroidism Macrocytic anemia Morbid obesity with BMI of 40.0-44.9, adult NSTEMI (non-ST elevated myocardial infarction) Old myocardial infarction Osteoarthritis Paroxysmal atrial fibrillation Retinal artery occlusion Sepsis Sick sinus syndrome Home Medications fluoxetine 40 mg PO DAILY 03/28/18 [History Last Taken 02/18/20] levothyroxine 125 mcg PO DAILY 03/28/18 [History Last Taken 02/18/20] acetaminophen 1,000 mg PO Q6H PRN tab 07/25/18 [Rx Last Taken 02/17/20] tamsulosin 0.4 mg PO DAILY@1730 #30 cap 07/25/18 [Rx Last Taken 02/17/20] allopurinol 300 mg tablet 300 mg PO DAILY 07/27/18 [History Last Taken 02/17/20] pantoprazole 40 mg tablet,delayed release 40 mg PO DAILY 08/16/18 [History Last Taken 02/18/20] meclizine 12.5 mg tablet 12.5 mg PO DAILY 08/24/19 [History Last Taken 02/17/20] rosuvastatin 10 mg tablet 10 mg PO QHS tab 02/11/20 [History Last Taken 02/17/20] dutasteride 0.5 mg PO DAILY 02/18/20 [History Last Taken 02/17/20] apixaban 5 mg tablet 2.5 mg PO BID #180 tab 03/06/20 [Rx Last Taken Unknown] furosemide 20 mg tablet 40 mg PO DAILY tab 04/24/20 [History Last Taken Unknown] aspirin 81 mg tablet,delayed release See Rx Instructions .ROUTE .COMPLEX #90 tab 06/30/20 [Rx Last Taken Unknown] albuterol sulfate 2 puff INHALATION Q4H PRN #6.7 g 11/25/20 [Rx Last Taken Unknown] guaifenesin [Mucus Relief ER] 1,200 mg PO BID 10 Days #20 tab 11/25/20 [Rx Last Taken Unknown] prednisone 40 mg PO DAILY #10 tab 11/25/20 [Rx Last Taken Unknown] Allergy/AdvReac Type Severity Reaction Status Date / Time atorvastatin [From Lipitor] AdvReac MUSCLE PAIN Verified 11/24/20 17:13 Family History Father Cancer Lung Heart disease Myocardial infarction Surgical History (Updated 11/24/20 @ 22:27 by TATUM Ramirez) History of bilateral hip replacements History of permanent cardiac pacemaker placement (02/18/20) S/P coronary artery bypass graft x 2 (~06/23/18) Social History Smoking Status: Former smoker how long ago did patient quit smokin years ago alcohol intake: never substance use type: does not use caffeine: No what type of physical activity do you participate in: walking frequency: daily ROS Constitutional Constitutional: Reports fatigue; Denies chills, fever(s) or headache(s) Eyes Eyes: Denies blurry vision or change in vision ENT HEENT: Reports dizziness; Denies headache(s) or nasal congestion Cardiovascular Cardiovascular: Reports dizziness and dyspnea; Denies chest pain Respiratory/Chest Respiratory/Chest: Reports cough, dyspnea and wheezing Gastrointestinal Gastrointestinal: Denies abdominal pain, diarrhea, nausea or vomiting Genitourinary Genitourinary: Denies difficulty urinating Musculoskeletal Musculoskeletal: Reports back pain Integumentary Integumentary: Denies lesions, rash or skin ulcer Neurologic Neurologic: Denies abnormal gait, abnormal speech or confusion Psychiatric Psychiatric: Denies anxiety, depression or hallucinations Endocrine Endocrinology: Reports fatigue Hematologic/Lymphatic Hematologic/Lymphatic: Denies easy bleeding or easy bruising Physical Exam Const alert, oriented x3 and no apparent distress General Appearance: cooperative Nutritional Appearance: obese HEENT normocephalic, head/scalp atraumatic and moist oral mucous membranes Eyes PERRL, EOMs intact bilaterally and conjunctivae normal Neck supple General: trachea midline Chest inspection of chest normal Resp normal respiratory effort and no use of accessory muscles Effort and Inspection: able to speak in complete sentences Auscultation: wheezes lower bilaterally Cardio regular rate and regular rhythm GI normal to inspection, nondistended, normoactive bowel sounds Extremity no clubbing, cyanosis or edema Skin no rashes or lesions noted Neuro oriented x3, CN's II-XII intact bilaterally, moves all extremities and no focal motor deficits Psych cooperative and affect normal Lab / Micro Data Result Diagrams: 11/25/20 05:56 11/25/20 05:56 Labs: Laboratory Results - last 24 hr 11/24/20 17:25: WBC 9.2, RBC 4.70, Hgb 13.6, Hct 44.0, MCV 93.6, MCH 28.9, MCHC 30.9 L, RDW Std Deviation 51.3 H, RDW Coeff of Thang 15.1 H, Plt Count 179, MPV 10.2, Immature Gran % (Auto) 1.200 H, Neut % (Auto) 70.6 H, Lymph % (Auto) 17.1 L, [place] % (Auto) 7.2, Eos % (Auto) 3.4, Baso % (Auto) 0.5, Absolute Neuts (auto) 6.5, Absolute Lymphs (auto) 1.57, Nucleated RBC % 0 11/24/20 17:25: Sodium 139, Potassium 4.2, Chloride 104, Carbon Dioxide 29.0, Anion Gap 6, BUN 44 H, Creatinine 1.61 H, Estim Creat Clear Calc 39.71, Est GFR (MDRD) Af Amer 53 L, Est GFR (MDRD) Non-Af 44 L, BUN/Creatinine Ratio 27.3 H, Glucose 140 H, Calcium 8.9, Troponin I High Sens 40.6 11/24/20 17:25: B-Natriuretic Peptide 138.6 H 11/25/20 05:56: WBC 7.3, RBC 4.84, Hgb 13.7, Hct 45.0, MCV 93.0, MCH 28.3, MCHC 30.4 L, RDW Std Deviation 51.0 H, RDW Coeff of Thang 14.8 H, Plt Count 154, MPV 9.8, Immature Gran % (Auto) 1.500 H, Neut % (Auto) 91.7 H, Lymph % (Auto) 5.6 L, [place] % (Auto) 0.7, Eos % (Auto) 0.1, Baso % (Auto) 0.4, Absolute Neuts (auto) 6.7, Absolute Lymphs (auto) 0.41 L, Nucleated RBC % 0 Micro: Microbiology 11/24/20 21:45 Nasal Secretion SARS-CoV-2 Antigen (Rapid) - Final Radiology Impression Chest X-Ray 11/24/20 18:18 IMPRESSION: There are findings consistent with COPD. There is no evidence of acute chest disease. Electronically Signed: Giorgio Diallo MD at 18:53 EDT , Service support , Chest CTA 11/24/20 19:58 IMPRESSION: Normal CTA chest examination, without a demonstrated pulmonary embolism or arterial dissection. Fibrotic chronic pulmonary disease. Electronically Signed: Giorgio Diallo MD at 21:19 EDT , Service support , Charges/Coding Visit Charges Inpatient E&M: 00103 Init Hosp L3 Procedures Hospitalists Procedures: 48291 Advncd Care Plan 30 Min
[2020-11-25 06:49] LABS: Procalcitonin 0.09 ng/mL (0.00-0.09)
[2020-11-25 06:56] LABS: Anion Gap 7 (5-15); BUN 41 mg/dL (7-18); BUN/Creat Ratio 28.5 RATIO (10-20); Calcium,Total 8.8 mg/dL (8.5-10.1); Chloride 102 mmol/L (98-107); Creatinine, Serum 1.44 mg/dL (0.70-1.30); EST Glomerular Filtration Rate 50 mL/min (>60); Est Glom Filt Rate - Afr Amer 60 mL/min (>60); Glucose 228 mg/dL (74-106); Sodium Level 137 mmol/L (136-145)
--- NOTE | 2020-11-25 07:34 | PCM.DC.SUM ---
Providers Date of Admission: 11/24/20 Primary Care Physician: Dr. Alexandro Lovell MD Consultations 11/24/20 23:02 Consult: Cafeteria Table Attendant / Pulmonary Medicine Routine Consulting Provider: Frank Aj Reason for Consult: COPD EMERGENT Consult: No MD Notified: Yes Date Notified: 11/24/20 Time Notified: 06:10 Method of Notification: Text Method of Consult:: In-Person Reason For Visit: COPD EXACERBATION Diagnosis Discharge Diagnosis (1) Acute hypoxemic respiratory failure: Status: Acute Code(s): J96.01 - Acute respiratory failure with hypoxia Medications at Discharge Home Medications fluoxetine 40 mg PO DAILY 03/28/18 levothyroxine 125 mcg PO DAILY 03/28/18 acetaminophen 1,000 mg PO Q6H PRN tab 07/25/18 tamsulosin 0.4 mg PO DAILY@1730 #30 cap 07/25/18 allopurinol 300 mg tablet 300 mg PO DAILY 07/27/18 pantoprazole 40 mg tablet,delayed release 40 mg PO DAILY 08/16/18 meclizine 12.5 mg tablet 12.5 mg PO DAILY 08/24/19 rosuvastatin 10 mg tablet 10 mg PO QHS tab 02/11/20 dutasteride 0.5 mg PO DAILY 02/18/20 apixaban 5 mg tablet 2.5 mg PO BID #180 tab 03/06/20 furosemide 20 mg tablet 40 mg PO DAILY tab 04/24/20 aspirin 81 mg tablet,delayed release See Rx Instructions .ROUTE .COMPLEX #90 tab 06/30/20 albuterol sulfate 2 puff INHALATION Q4H PRN #6.7 g 11/25/20 guaifenesin [Mucus Relief ER] 1,200 mg PO BID 10 Days #20 tab 11/25/20 prednisone 40 mg PO DAILY #10 tab 11/25/20 Hospital Course Operations None Procedures EKG Summary of Care Provided Minutes Spent on Discharge: 35 Hospital Course: Discharge Diagnoses: 1. 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 Hypertension 3. Hyperlipidemia 4. Chronic kidney disease stage III, unclear subtype 5. GERD with history of GI bleed 6. Gout 7. Chronic anemia, macrocytic 8. PAF 9. History of sick sinus syndrome status post pacemaker placement 10. History of NSTEMI, CAD status post CABG x2 11. Former tobacco use Discharge Summary: The patient is an 85 y/o M w/ PMHx: Former Tobacco use, CKD stage III, HTN, HLD, CAD s/p TX and CABG x 2, Hx Sick sinus syndrome s/p pacemaker placement, PAF, Chronic anemia who presented to the [facility] ED on 11/24/20 w/ history of progressively worsening dyspnea, cough, more recently productive but unable to bring it up he feels like, worsening with exertion over the last 2 years, more pronounced over the last couple months with planned outpatient pulmonary evaluation but visit noted to be approximately 1 month from current ED presentation. Patient denied any associated fevers, chills, pleuritic discomfort, nausea or emesis. Upon ED presentation patient was noted to be significantly hypoxic but no evidence of respiratory distress. Patient was admitted to the PCU, maintained on monitor, IV Solu-Medrol initiated and pulmonary medicine was consulted. Pulmonary medicine evaluated patient and recommended steroid burst of 5-day prednisone 40 daily regimen only, rescue inhaler usage, early follow-up in their office with continued nasal cannula oxygen supplementation with plan further testing at that time. Pulmonary medicine noted necessity for these follow-up testing to be able to determine if patient in fact has underlying specific pulmonary process. Given patient clinical improvement with oxygen supplementation alone patient discharge per pulmonary recommendation to home with follow-up with pulmonary medicine on 11/27/2020 with continued oxygen supplementation with short burst of steroid and a rescue inhaler available. Upon discharge oxygenation trial was performed and patient was noted to require 4 L nasal cannula to maintain at 90% oxygenation while ambulating and as low as 1 L nasal cannula to maintain 90% at rest with otherwise noted 87% on room air without any oxygen. Discharge Time: > 35 Minutes DAY OF DISCHARGE PROGRESS NOTE: Subjective: Patient without acute event overnight per self and nursing report. Patient notes feeling significantly improved even with just oxygen supplementation since his arrival. He denies any marked productive cough. Patient denies fever, chills, nausea, emesis, abdominal pain, chest pain or dyspnea. Patient agreeable to discharge to home with close early follow-up with pulmonary medicine on supplemental oxygen. Patient will be discharged with follow-up with primary care physician within 3-5 days in addition to early follow-up with pulmonary medicine on 11/27/2020. Objective: T 97.9, heart rate 89, BP 118/62, respiratory rate 18, 92% on 2 L nasal cannula. Physical Examination: General: awake, alert, oriented x 3 and cooperative, seated upright in the ED bed, no acute distress. Skin: normal color, turgor, no icterus, cyanosis. HEENT: AT/NC, EOMI, PERRLA, MMM. Lungs: Diminished breath sounds bilaterally, greater bases, occasional end expiratory wheeze posteriorly, no evidence of any distress, appropriate effort, no rales or rhonchi. Heart: Regular rate and rhythm/paced; no gallop, rub audible. Abdomen: soft, overweight, NTTP, ND, normal BS. Extremities: no cyanosis, clubbing, or edema. Neurological: patient awake, alert, oriented as noted; cognitive function appears intact upon questioning,; pupils equally reactive to light and accomodation; cranial nerves II-XII grossly normal, moving all 4 extremities, strength mildly globally decreased, notes improved with supplementation. Psychiatric: affect appears normal, notes feeling improved, no acute evidence of depressive or anxiety feelings. Assessment and Plan: Please see hospital summary above. Weight / BMI Weight Weight: 289 lb 0.416 oz Body Mass Index (BMI) 37.0 ABG / Lab / Microbiology Data Result Diagrams: 11/25/20 05:56 11/25/20 05:56 Laboratory: Laboratory Results - last 24 hr 11/24/20 17:25: WBC 9.2, RBC 4.70, Hgb 13.6, Hct 44.0, MCV 93.6, MCH 28.9, MCHC 30.9 L, RDW Std Deviation 51.3 H, RDW Coeff of Thang 15.1 H, Plt Count 179, MPV 10.2, Immature Gran % (Auto) 1.200 H, Neut % (Auto) 70.6 H, Lymph % (Auto) 17.1 L, [place] % (Auto) 7.2, Eos % (Auto) 3.4, Baso % (Auto) 0.5, Absolute Neuts (auto) 6.5, Absolute Lymphs (auto) 1.57, Nucleated RBC % 0 11/24/20 17:25: Sodium 139, Potassium 4.2, Chloride 104, Carbon Dioxide 29.0, Anion Gap 6, BUN 44 H, Creatinine 1.61 H, Estim Creat Clear Calc 39.71, Est GFR (MDRD) Af Amer 53 L, Est GFR (MDRD) Non-Af 44 L, BUN/Creatinine Ratio 27.3 H, Glucose 140 H, Calcium 8.9, Troponin I High Sens 40.6 11/24/20 17:25: B-Natriuretic Peptide 138.6 H 11/24/20 22:56: Procalcitonin 0.09 11/25/20 05:56: WBC 7.3, RBC 4.84, Hgb 13.7, Hct 45.0, MCV 93.0, MCH 28.3, MCHC 30.4 L, RDW Std Deviation 51.0 H, RDW Coeff of Thang 14.8 H, Plt Count 154, MPV 9.8, Immature Gran % (Auto) 1.500 H, Neut % (Auto) 91.7 H, Lymph % (Auto) 5.6 L, [place] % (Auto) 0.7, Eos % (Auto) 0.1, Baso % (Auto) 0.4, Absolute Neuts (auto) 6.7, Absolute Lymphs (auto) 0.41 L, Nucleated RBC % 0 11/25/20 05:56: Sodium 137, Potassium 4.0, Chloride 102, Carbon Dioxide 28.0, Anion Gap 7, BUN 41 H, Creatinine 1.44 H, Estim Creat Clear Calc 44.40, Est GFR (MDRD) Af Amer 60, Est GFR (MDRD) Non-Af 50 L, BUN/Creatinine Ratio 28.5 H, Glucose 228 H, Calcium 8.8 Microbiology: Microbiology 11/24/20 21:45 Nasal Secretion SARS-CoV-2 Antigen (Rapid) - Final Radiography Diagnostic Testing: Radiology Impression Chest X-Ray 11/24/20 18:18 IMPRESSION: There are findings consistent with COPD. There is no evidence of acute chest disease. Electronically Signed: Giorgio Diallo MD at 18:53 EDT , Service support , Chest CTA 11/24/20 19:58 IMPRESSION: Normal CTA chest examination, without a demonstrated pulmonary embolism or arterial dissection. Fibrotic chronic pulmonary disease. Electronically Signed: Giorgio Diallo MD at 21:19 EDT , Service support , Meaningful Use Info Meaningful Use Diagnoses (Choose all that apply): None applicable Discharge Plan Admission Admit Date/Time: 11/24/20 22:15 Primary Reason for Your Visit: Acute Hypoxia, New Onset Attending Provider: Suzie Francois Primary Care Provider: Alexandro Lovell Consulting Providers: Frank Aj Instructions Patient Instructions: Understanding Oxygen Therapy, Using Oxygen Safely, Using Oxygen at Home Discharge Orders/Prescriptions Prescriptions: New Mucus Relief ER 1,200 mg Tablet Extended Release 12hr 1,200 mg PO BID 10 Days Qty: 20 RF: 0 prednisone 20 mg tablet 40 mg PO DAILY Qty: 10 RF: 0 albuterol sulfate 90 mcg/actuation HFA aerosol inhaler 2 puff inhalation Q4H PRN (Reason: shortness of breath or wheezing) Qty: 6.7 RF: 0 Continued allopurinol 300 mg tablet 300 mg PO DAILY RF: 0 meclizine 12.5 mg tablet 12.5 mg PO DAILY RF: 0 pantoprazole 40 mg tablet,delayed release (DR/EC) 40 mg PO DAILY RF: 0 furosemide 20 mg tablet 40 mg PO DAILY RF: 0 rosuvastatin 10 mg tablet 10 mg PO QHS RF: 0 Eliquis 5 mg tablet 2.5 mg PO BID Qty: 180 RF: 3 fluoxetine 40 MG capsule 40 mg PO DAILY RF: 0 levothyroxine 125 MCG tablet 125 mcg PO DAILY RF: 0 acetaminophen 500 MG tablet 1,000 mg PO Q6H PRN (Reason: Mild Pain (1-10)) RF: 0 tamsulosin 0.4 MG capsule 0.4 mg PO DAILY@1730 Qty: 30 RF: 0 dutasteride 0.5 MG capsule 0.5 mg PO DAILY RF: 0 No Action aspirin 81 mg tablet,delayed release (DR/EC) See Rx Instructions .ROUTE .COMPLEX Qty: 90 RF: 4 Referrals / Follow Up: Alexandro Lovell MD [Primary Care Provider] - (Follow-up within 3-5 days to review admission.) Zenobia Raya NP, PULVERIZER MILL OPERATOR-C [Nurse Practitioner] - (Please follow-up on 11/27/20 8:45 am.) Disposition Disposition (needs filled in before D/C Order can be placed): Home Health Service Charges/Coding Visit Charges OBSV E&M: 63754 Observation care discharge
[2020-11-25 07:52] LABS: Thyroid Stim Hormone (TSH) 1.04 uIU/mL (0.358-3.74)
--- NOTE | 2020-11-25 08:35 | DCINST_ITS ---
Discharge Instructions Diet Discharge Diet: Low fat / Low cholesterol Activity Discharge Activity: - (Use supplemental oxygen as recommended.) May resume sexual activity in: - (Once cleared per Pulmonary upon re- evaluation.) Weight Bearing Status: Weight bearing as tolerated Dressing / Incision Call your doctor if you observe: Fever of 101 or Higher, Shortness of breath, Dizziness, Fainting spells, Chest pain, Prolonged hiccupping, Increased palpitations (irregular heartbeat) and Uncontrolled pain Follow Up Care Test Results: Test results from this visit will be discussed in further detail at your follow-up appointment, if applicable. Discharge Plan Admission Admit Date/Time: 11/24/20 22:15 Primary Reason for Your Visit: Acute Hypoxia, New Onset Attending Provider: Suzie Francois Primary Care Provider: Alexandro Lovell Consulting Providers: Frank Aj Instructions Patient Instructions: Understanding Oxygen Therapy, Using Oxygen Safely, Using Oxygen at Home Discharge Orders/Prescriptions Prescriptions: New Mucus Relief ER 1,200 mg Tablet Extended Release 12hr 1,200 mg PO BID 10 Days Qty: 20 RF: 0 prednisone 20 mg tablet 40 mg PO DAILY Qty: 10 RF: 0 albuterol sulfate 90 mcg/actuation HFA aerosol inhaler 2 puff inhalation Q4H PRN (Reason: shortness of breath or wheezing) Qty: 6.7 RF: 0 Continued allopurinol 300 mg tablet 300 mg PO DAILY RF: 0 meclizine 12.5 mg tablet 12.5 mg PO DAILY RF: 0 pantoprazole 40 mg tablet,delayed release (DR/EC) 40 mg PO DAILY RF: 0 furosemide 20 mg tablet 40 mg PO DAILY RF: 0 rosuvastatin 10 mg tablet 10 mg PO QHS RF: 0 Eliquis 5 mg tablet 2.5 mg PO BID Qty: 180 RF: 3 fluoxetine 40 MG capsule 40 mg PO DAILY RF: 0 levothyroxine 125 MCG tablet 125 mcg PO DAILY RF: 0 acetaminophen 500 MG tablet 1,000 mg PO Q6H PRN (Reason: Mild Pain (-07/23)) RF: 0 tamsulosin 0.4 MG capsule 0.4 mg PO DAILY@1730 Qty: 30 RF: 0 dutasteride 0.5 MG capsule 0.5 mg PO DAILY RF: 0 No Action aspirin 81 mg tablet,delayed release (DR/EC) See Rx Instructions .ROUTE .COMPLEX Qty: 90 RF: 4 Referrals / Follow Up: Alexandro Lovell MD [Primary Care Provider] - (Follow-up within 3-5 days to review admission.) Zenobia Raya NP, ANALYST PROGRAMMER-C [Nurse Practitioner] - (Please follow-up on 11/27/20 8:45 am.) Disposition Disposition (needs filled in before D/C Order can be placed): Home Health Service
[2020-11-25] MEDS: Aspirin E.C. 81 MG Tablet PO (09:01)
[2020-11-25] MEDS: FLUoxetine 20 MG Capsule 40 MG PO (09:01)
[2020-11-25] MEDS: Meclizine 12.5 MG Tablet PO (09:01)
[2020-11-25] MEDS: Pantoprazole Sodium 40 MG Tablet PO (09:01)
[2020-11-25] MEDS: guaiFENesin 1,200 MG Tablet 1200 MG PO (09:01)
[2020-11-25] MEDS: Allopurinol 300 MG Tablet PO (09:01)
[2020-11-25] MEDS: APIXABAN 2.5 MG TABLET PO (09:01)
[2020-11-25] MEDS: Finasteride 5 MG Tablet PO (09:02)
--- NOTE | 2020-11-25 10:07 | PHA.DC.MC ---
Pharmacy Service has performed discharge medication reconciliation and counseling for this patient. 1. ALBUTEROL MDI 2PUFFS Q4H PRN SOB/WHEEZING 2. GUAIFENESIN 1200MG PO BID X 10 DAYS 3. PREDNISONE 40MG PO DAILY X 5 DAYS The patient's discharge medication list was reviewed for discrepancies and discrepancies were resolved. Home Medications fluoxetine 40 mg PO DAILY 03/28/18 levothyroxine 125 mcg PO DAILY 03/28/18 acetaminophen 1,000 mg PO Q6H PRN tab 07/25/18 tamsulosin 0.4 mg PO DAILY@1730 #30 cap 07/25/18 allopurinol 300 mg tablet 300 mg PO DAILY 07/27/18 pantoprazole 40 mg tablet,delayed release 40 mg PO DAILY 08/16/18 meclizine 12.5 mg tablet 12.5 mg PO DAILY 08/24/19 rosuvastatin 10 mg tablet 10 mg PO QHS tab 02/11/20 dutasteride 0.5 mg PO DAILY 02/18/20 apixaban 5 mg tablet 2.5 mg PO BID #180 tab 03/06/20 furosemide 20 mg tablet 40 mg PO DAILY tab 04/24/20 aspirin 81 mg tablet,delayed release See Rx Instructions .ROUTE .COMPLEX #90 tab 06/30/20 albuterol sulfate 2 puff INHALATION Q4H PRN #6.7 g 11/25/20 guaifenesin [Mucus Relief ER] 1,200 mg PO BID 10 Days #20 tab 11/25/20 prednisone 40 mg PO DAILY #10 tab 11/25/20 The patient was counseled on the following discharge medications and changes in medications for homegoing were reviewed. The Reason for Use, instructions for use, and potential side effects were reviewed for all new medications. The patient's questions regarding all of their medications were answered. The patient was able to verbally demonstrate an understanding of their discharge medications.
--- NOTE | 2020-11-25 10:13 | CASEMGMT ---
Pt qualifies for 1-2L at rest and 4L w/ exertion per Nargis DAWN. This RN CM to room and after pt was provided a verbal list of local in-network DME providers, pt chose [facility]. 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 Pt updated on portable tanks as well as POC, voices understanding. Script obtained and faxed to [facility] for 1-2L at rest and 4L w/ exertion and POC eval as well as portable tanks. Call to Calli at [facility] and she is updated on referral/discharge and pt concerns, voices understanding. Pt to f/u with Dr. Aj's office this at 0845. Pt updated on all, voices understanding. Pt voices no further questions/concerns/needs. Rolando DAWN CM
== END 2020-11-25 11:10 | disposition home health service (06) ==
LOC: ED 21:55 → PCU 22:22
PROVIDERS: Internal Medicine Critical Care Medicine; Nurse Practitioner Family; Admitting Provider Hospitalist; Emergency Provider Emergency Medicine; PCP Family Medicine; Visit Provider Family Medicine
DX: J96.01 Acute respiratory failure with hypoxia (principal); I12.9 Hypertensive chronic kidney disease with stage 1 through stage 4 chronic kidney disease, or unspecified chronic kidney disease; F32.9 Major depressive disorder, single episode, unspecified; I25.10 Atherosclerotic heart disease of native coronary artery without angina pectoris; N18.31 Chronic kidney disease, stage 3a; K21.9 Gastro-esophageal reflux disease without esophagitis; I25.2 Old myocardial infarction; M10.9 Gout, unspecified; E78.5 Hyperlipidemia, unspecified; E66.01 Morbid (severe) obesity due to excess calories; E03.9 Hypothyroidism, unspecified; M19.90 Unspecified osteoarthritis, unspecified site; I48.0 Paroxysmal atrial fibrillation; N40.0 Benign prostatic hyperplasia without lower urinary tract symptoms; J84.10 Pulmonary fibrosis, unspecified; J44.9 Chronic obstructive pulmonary disease, unspecified; D53.9 Nutritional anemia, unspecified; Z79.899 Other long term (current) drug therapy; Z79.01 Long term (current) use of anticoagulants; Z79.82 Long term (current) use of aspirin; Z87.891 Personal history of nicotine dependence; Z95.0 Presence of cardiac pacemaker; Z68.35 Body mass index [BMI] 35.0-35.9, adult; Z95.1 Presence of aortocoronary bypass graft; R06.02 Shortness of breath
CPT/HCPCS: 36415; 71046; 71275; 80048; 83880; 84145; 84443; 84484; 85025; 87070; 87077; 87186; 87205; 87426; 93005; 94640; 94667; 96374; 96376; 99218; 99251; 99285; Q9967; A4216; G0378; G0463

== ENCOUNTER → 2020-12-09 09:53 | Outpatient (CLI) | payer MEDICARE, BC, SELFPAY ==
[2020-11-27 07:50] VITALS: BMI 35.3
--- NOTE | 2020-12-09 09:54 | CDU_ITS ---
Reason For Study: carotid stenosis Rt. Velocities/BP Lt. Velocities/BP Prox CCA 133.9/15.2 cm/sec. Prox CCA 84.3/23.9 cm/sec. Mid CCA 106.5/17.0 cm/sec. Mid CCA 112.1/28.6 cm/sec. Dist CCA 76.1/8.0 cm/sec. Dist CCA 98.6/22.5 cm/sec. Prox ICA 207.0/49.0 cm/sec. Prox ICA 181.4/46.2 cm/sec. Mid ICA 117.0/27.0 cm/sec. Mid ICA 135.7/35.3 cm/sec. Dist ICA 92.9/22.6 cm/sec. Dist ICA 121.1/35.3 cm/sec. Rt. ICA/CCA = 1.9. Lt. ICA/CCA = 1.6. Prox ECA 126.6/6.0 cm/sec. Prox ECA 152.1/17.0 cm/sec. Rt. Vert. 22.0/7.8 cm/sec. Lt. Vert. 28.9/6.9 cm/sec. Right Extracranial There is heterogeneous, irregular atherosclerotic plaque noted in the right common carotid artery. There is heterogeneous, irregular atherosclerotic plaque noted in the right internal carotid artery. There is heterogeneous, irregular atherosclerotic plaque noted in the right external carotid artery. Antegrade flow is noted in the right vertebral artery. Left Extracranial There is heterogeneous, irregular atherosclerotic plaque noted in the left common carotid artery. There is heterogeneous, irregular atherosclerotic plaque noted in the left internal carotid artery. There is heterogeneous, irregular atherosclerotic plaque noted in the left external carotid artery. Antegrade flow is noted in the left vertebral artery. Procedure Carotid Duplex 85272. This is a Carotid Duplex examination using B-mode, color flow and specral Doppler. The exam was diagnostic. Technically difficult study due to pt respirations/body habitus. Exam performed in department. VL/Carotid Duplex Ultrasound Interpretation Summary Irregular calcific plaque at the proximal right internal and external carotid a rteries 50 to 69% stenosis of the right proximal internal carotid Less than 50% stenosis right external carotid Irregular calcific plaque at the proximal left internal carotid with 50 to 69% stenosis Less than 50% stenosis left external carotid Patent and antegrade vertebrals bilaterally Interpretation is similar to the previous examination of October 23, 2019 with poss ible slight advancement involving the right internal carotid artery Ordering Physician: Dexter Milligan Performed By: Rodger Hinson RVT and Student
== END ==
PROVIDERS: PCP Family Medicine; Referring Provider Surgery; Visit Provider Surgery
DX: H34.9 Unspecified retinal vascular occlusion (principal); I65.29 Occlusion and stenosis of unspecified carotid artery
CPT/HCPCS: 93880

== ENCOUNTER → 2020-12-22 10:31 | Outpatient (CLI) | payer MEDICARE, BC, SELFPAY ==
[2020-11-27 07:50] VITALS: BMI 35.3
--- NOTE | 2020-12-23 08:06 | PFT ---
INTRODUCTION: The patient is an 85-year-old male that presents for pulmonary function studies secondary to a diagnosis of COPD. Respiratory therapy reported good patient effort. Bronchodilators were used during testing. INTERPRETATION: Forced expiration spirometry demonstrates the presence of a severe large airways obstructive ventilatory defect. There was no significant response to aerosolized bronchodilators, based upon strict ATS criteria. Spirograms are of good quality but do not plateau indicating slow emptying of the lungs. Body plethysmography was performed and revealed a decreased TLC to 4.23 L, 57% of predicted, indicative of a severe restrictive ventilatory impairment. Diffusing capacity by single breath CO is reduced to 58% of predicted. IMPRESSION: Irreversible severe mixed ventilatory defect with moderate reduction in diffusing capacity.
== END ==
PROVIDERS: PCP Family Medicine; Referring Provider Nurse Practitioner Acute Care; Visit Provider Nurse Practitioner Acute Care
DX: J44.9 Chronic obstructive pulmonary disease, unspecified (principal)
CPT/HCPCS: 94060; 94726; 94729

== ENCOUNTER → 2020-12-25 12:11 | Outpatient (CLI) | payer MEDICARE, BC, SELFPAY ==
[2020-11-27 07:50] VITALS: BMI 35.3
[2020-12-25 12:30] VITALS: PULSE 78; PULSE 97; O2SAT 80; O2SAT 88; O2SAT 93
--- NOTE | 2020-12-25 13:09 | CPS ---
Pt was on room air upon arriving for his test. Room air saturation was 80%. Pt was placed on 2 lpm with saturation 90-91%. Walk was started. Pt was stopped at 38 seconds into walk for 88% saturation. Pt was increased to 4 lpm. At 1 min 38 seconds pt stated he needed to sit down. Pt was helped to wheel chair. Pt saturation was in the 90's on the 4 lpm and pt needed to sit due to back pain. Pt did not feel that there was any need for walk to be restarted since he does not walk much on a regular basis. walk was terminated at 1min 38 seconds with pt needing 4 lpm.
--- NOTE | 2020-12-26 13:37 | PCM.PSN.6M ---
PSN 6 Minute Walk Test 6 Minute Walk Test 6 Minute Walk Test: 6 Minute Walk Test PSN:6-Minute Walk Test Start: 12/25/20 13:04 Freq: Status: Active Protocol: RESP.6MINW Document 12/25/20 12:30 [facility] (Rec: 12/25/20 13:19 [facility] [id number]) 6 Minute Walk Test Date Performed 12/25/20 Time Performed 12:30 Height 6 ft 2 in Weight: 122.47 kg Weight in Pounds 270.[address]: Arthur Assistive device used: Walker Pre-test Oxygen Delivery Method Room Air Pulse Ox (%) 80 Pulse Rate (60-100 beats/min) 78 Dyspnea Kamila Scale (0-10) 1 Exertion Kamila Scale (6-20) 6 Reported Symptoms Increased Work of Breathing 1st minute Oxygen Flow Rate (L/min) (L/min) 2 Oxygen Delivery Method Nasal Cannula Pulse Ox (%) 88 Pulse Rate (60-100 beats/min) 97 Dyspnea Kamila Scale (0-10) 2 Reported Symptoms Increased Work of Breathing 2nd minute Oxygen Flow Rate (L/min) (L/min) 4 Oxygen Delivery Method Nasal Cannula 3rd minute Oxygen Flow Rate (L/min) (L/min) 4 Oxygen Delivery Method Nasal Cannula 4th minute Oxygen Flow Rate (L/min) (L/min) 4 Oxygen Delivery Method Nasal Cannula 5th minute Oxygen Flow Rate (L/min) (L/min) 4 Oxygen Delivery Method Nasal Cannula 6th minute Oxygen Flow Rate (L/min) (L/min) 4 Oxygen Delivery Method Nasal Cannula Post-test Oxygen Flow Rate (L/min) (L/min) 4 Oxygen Delivery Method Nasal Cannula Pulse Ox (%) 93 Full Laps Walked 2 Partial Lap, Number of Tiles Walked 0 Total Distance Walked (ft) 118 12/25/20 13:09 Cardiopulmonary Services by Magy Girard Pt was on room air upon arriving for his test. Room air saturation was 80%. Pt was placed on 2 lpm with saturation 90-91%. Walk was started. Pt was stopped at 38 seconds into walk for 88% saturation. Pt was increased to 4 lpm. At 1 min 38 seconds pt stated he needed to sit down. Pt was helped to wheel chair. Pt saturation was in the 90's on the 4 lpm and pt needed to sit due to back pain. Pt did not feel that there was any need for walk to be restarted since he does not walk much on a regular basis. walk was terminated at 1min 38 seconds with pt needing 4 lpm. Initialized on 12/25/20 13:09 - END OF NOTE Interpretation Interpretation: The patient ambulated 118 feet over the course of 6 minutes beginning on room air with the use of a walker. The patient arrived for testing on room air and was saturating 80%. 2 L/min of oxygen was applied prior to the initiation of testing. With ambulation, the [place] oxygen saturation was 88%, requiring an increase in flow rate to 4 L/min. Unfortunately, the walk was terminated at 1 minute and 38 seconds as the patient was able to proceed any further due to back pain. Recommendations Recommendations: 2 L/min of supplemental oxygen as required at rest. 4 L/min of supplemental oxygen is required with exertion.
== END ==
PROVIDERS: PCP Family Medicine; Referring Provider Nurse Practitioner Acute Care; Visit Provider Nurse Practitioner Acute Care
DX: J44.9 Chronic obstructive pulmonary disease, unspecified (principal)
CPT/HCPCS: 94618

== ENCOUNTER → 2021-01-02 11:39 | Outpatient (CLI) | payer MEDICARE, BC, SELFPAY ==
[2021-01-02 12:16] LABS: Absolute Lymphocyte Count 0.88 X10^3/uL (0.83-4.51); Absolute Neutrophil Count 6.6 X10^3/uL (2.0-7.7); Basophil# 0.08 X10^3/uL; Basophil% 0.9 % (0-1); Eosinophil# 0.19 X10^3/uL; Eosinophils% 2.2 % (0-5); Hematocrit 39.9 % (40-54); Hemoglobin 11.9 g/dL (13.0-16.5); Lymphocyte # 0.88 X10^3/ul (0.83-4.51); Mean Corp Hgb Conc 29.8 g/dL (32-36); Mean Corpuscular Hgb 29.5 pg (27.0-32.0); Mean Platelet Vol. 9.8 fl (6.2-12.0); Monocyte# 0.71 X10^3/uL; Monocyte% 8.1 % (0-10); NRBC Flagged by Analyzer 0 % (0-5); Neutrophil # 6.55 X10^3/uL (2.7-7.7); Neutrophil % 74.4 % (47-70); Platelet Count 150 K/mm3 (150-450); RBC Distribution Width CV 15.2 % (11.6-14.6); RBC Distribution Width SD 55.7 fl (35.1-43.9); Red Blood Count 4.03 M/mm3 (4.6-6.2); White Blood Count 8.8 K/mm3 (4.4-11.0)
[2021-01-02 12:46] LABS: Rheumatoid Factor < 10.0 IU/mL (<15)
[2021-01-03 20:08] LABS: ANTINUCLEAR ANTIBODIES DIRECT Positive (Negative); Anti-Centromere B Ab 0.4 AI (0.0-0.9); Anti-Chromatin <0.2 AI (0.0-0.9); Anti-Jo <0.2 AI (0.0-0.9); Anti-Scleroderma-70 AB 1.1 AI (0.0-0.9); RNP Ab <0.2 AI (0.0-0.9); SJOGREN'S Anti-SS-A test < 0.2 AI (0.0-0.9); SJOGREN'S Anti-SS-B test < 0.2 AI (0.0-0.9); Smith Ab <0.2 AI (0.0-0.9)
[2021-01-03 20:16] LABS: Anti-dsDNA Ab <1 IU/mL (0-9)
[2021-01-06 04:08] LABS: Cytoplasmic Ab (C-ANCA) <1:20 titer (Neg:<1:20)
[2021-01-06 08:05] LABS: CCP IgG Antibodies 7 units (0-19); Immunoglobulin E 25 IU/mL (6-495); Perinuclear Ab (P-ANCA) <1:20 titer (Neg:<1:20)
== END ==
PROVIDERS: PCP Family Medicine; Referring Provider Internal Medicine Critical Care Medicine; Visit Provider Internal Medicine Critical Care Medicine
DX: E87.5 Hyperkalemia (principal); R94.2 Abnormal results of pulmonary function studies
CPT/HCPCS: 36415; 82785; 85025; 86038; 86200; 86225; 86235; 86256; 86431

== ENCOUNTER → 2021-01-12 20:00 | Outpatient (CLI) | payer MEDICARE, BC, SELFPAY | PROVIDERS: PCP Family Medicine; Visit Provider Internal Medicine Critical Care Medicine | DX: G47.33 Obstructive sleep apnea (adult) (pediatric) (principal) | CPT/HCPCS: 95811 ==

== ENCOUNTER 2021-01-14 10:19 | Inpatient (IN) | payer MEDICARE, BC, SELFPAY ==
[2021-01-14] VITALS (20 sets, daily range): BP systolic 113–141; BP diastolic 57–82; PULSE 57–94; RESP 16–32; TEMP 36.3–37.2; O2SAT 84–96; BMI 34.7; BMI 36.4
--- NOTE | 2021-01-14 10:36 | EKG12_ITS ---
Test Reason : SOB Blood Pressure : / mmHG Vent. Rate : 077 BPM Atrial Rate : 077 BPM P-R Int : 270 ms QRS Dur : 108 ms QT Int : 410 ms P-R-T Axes : 041 -51 030 degrees QTc Int : 463 ms Sinus rhythm with 1st degree A-V block with Premature atrial complexes Left axis deviation Incomplete left bundle branch block Abnormal ECG Confirmed by LUCIAN PEOPLES, CHRISTAL ([id number]), editor greeting card ZULY PRAKASH ([id number]) on 01/15/2021 12:52:49 PM Referred By: GERONIMO Confirmed By:HIRAM EPSTEIN MD
--- NOTE | 2021-01-14 10:40 | EDS_ITS ---
HPI History of Present Illness Chief Complaint: Shortness of Breath Narrative Narrative: Patient presents with shortness of breath. This is been ongoing for a few weeks she was recently placed on home oxygen but over the past few days he has been getting worse, today he noticed that on his home oxygen he was desaturating. He has a cough that is somewhat productive but no fevers or chills. He has no orthopnea. He has chronic lower extremity edema but it is not worsened. [facility] Medical History Acute blood loss anemia Atherosclerotic heart disease of [place] coronary artery without angina pectoris Atrial flutter Cellulitis Chest pain Chronic renal insufficiency CKD (chronic kidney disease) stage 3, GFR 30-59 ml/min COPD (chronic obstructive pulmonary disease) Depression Dizziness Essential hypertension GERD (gastroesophageal reflux disease) GI bleed Gout Healthcare associated bacterial pneumonia (Unknown) HTN (hypertension) Hyperkalemia Hyperlipidemia Hypothyroidism Macrocytic anemia Morbid obesity with BMI of 40.0-44.9, adult NSTEMI (non-ST elevated myocardial infarction) Old myocardial infarction Osteoarthritis Paroxysmal atrial fibrillation Pulmonary fibrosis Retinal artery occlusion Sepsis Sick sinus syndrome Home Medications fluoxetine 40 mg PO DAILY 03/28/18 [History Last Taken 02/18/20] levothyroxine 125 mcg PO DAILY 03/28/18 [History Last Taken 02/18/20] acetaminophen 1,000 mg PO Q6H PRN tab 07/25/18 [Rx Last Taken 02/17/20] tamsulosin 0.4 mg PO DAILY@1730 #30 cap 07/25/18 [Rx Last Taken 02/17/20] allopurinol 300 mg tablet 300 mg PO DAILY 07/27/18 [History Last Taken 02/17/20] pantoprazole 40 mg tablet,delayed release 40 mg PO DAILY 08/16/18 [History Last Taken 02/18/20] meclizine 12.5 mg tablet 12.5 mg PO DAILY 08/24/19 [History Last Taken 02/17/20] rosuvastatin 10 mg tablet 10 mg PO QHS tab 02/11/20 [History Last Taken 02/17/20] dutasteride 0.5 mg PO DAILY 02/18/20 [History Last Taken 02/17/20] apixaban 5 mg tablet 2.5 mg PO BID #180 tab 10/22/20 [Rx Last Taken Unknown] furosemide 20 mg tablet 40 mg PO DAILY tab 04/24/20 [History Last Taken Unknown] aspirin 81 mg tablet,delayed release See Rx Instructions .ROUTE .COMPLEX #90 tab 06/30/20 [Rx Last Taken Unknown] albuterol sulfate 2 puff INHALATION Q4H PRN #6.7 g 11/25/20 [Rx Last Taken Unknown] guaifenesin [Mucus Relief ER] 1,200 mg PO BID 10 Days #20 tab 11/25/20 [Rx Last Taken Unknown] budesonide 0.5 mg/2 mL suspension for nebulization 0.5 mg INHALATION BID #120 ml 01/02/21 [Rx Last Taken Unknown] ipratropium 0.5 mg-albuterol 3 mg (2.5 mg base)/3 mL nebulization soln 3 ml INHALATION Q4H #180 ml 01/02/21 [Rx Last Taken Unknown] Allergy/AdvReac Type Severity Reaction Status Date / Time atorvastatin [From Lipitor] AdvReac MUSCLE PAIN Verified 01/14/21 10:19 Family History Father Cancer Lung Heart disease Myocardial infarction Surgical History History of bilateral hip replacements History of permanent cardiac pacemaker placement (02/18/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 fib, GERD, hypertension, anemia, obesity, arthritis, hypothyroidism, chronic kidney disease Medications: Reviewed Social history: Noncontributory Review of systems: All systems negative except as indicated General: No fever Eyes: No visual changes ENT: No upper airway congestion, normal voice Neck: No neck pain Cardiovascular: No chest pain Respiratory: Shortness of breath as in HPI Gastrointestinal: No abdominal pain, nausea vomiting or diarrhea Genitourinary: No dysuria Musculoskeletal: Denies myalgias no difficulty with ambulation Skin: No rash Neurological: No memory loss, confusion or any focal weakness Psych: No recent behavioral changes Hematologic: No easy bleeding or easy bruising EXAM Physical Exam Narrative Exam Narrative: Physical exam General: Patient appears chronically ill he appears in some distress Head: Normocephalic, Atraumatic Eyes: Conjunctiva not pale ENT: Moist mucous membranes Neck: Supple, Nontender, No lymphadenopathy Cardiovascular: no obvious murmurs. somewhat irregular Respiratory: He is speaking in full sentences he has bilateral wheezing and rhonchi. Abdomen: Soft, Nontender, Nondistended Back: Nontender, Normal Inspection. Negative for: CVA tenderness Extremities: Nontender, equal bilateral lower extremity edema Skin: Normal color, No rash Neurological: Alert, Normal Strength, Normal Sensation Psychological: Normal affect Const Vital Signs: 01/14/21 10:20 01/14/21 10:28 01/14/21 10:55 Temperature 98.8 F 98.8 F Temperature Source Temporal Temporal Pulse Rate 71 71 Respiratory Rate 22 H 22 H Respiratory Effort Blood Pressure 113/57 L 113/57 L Blood Pressure Mean 75 75 Pulse Ox 84 93 93 Oxygen Delivery Method Room Air Nasal Cannula Nasal Cannula Oxygen Flow Rate (L/min) 4 01/14/21 11:00 01/14/21 11:22 01/14/21 11:26 Temperature 98.8 F Temperature Source Temporal Pulse Rate 77 85 Respiratory Rate 24 H 32 H Respiratory Effort Short of Breath Labored Accessory Muscle Use Blood Pressure 137/69 H Blood Pressure Mean 91 Pulse Ox 92 91 Oxygen Delivery Method Nasal Cannula Airvo Airvo Oxygen Flow Rate (L/min) 6 01/14/21 11:43 Temperature Temperature Source Pulse Rate Respiratory Rate Respiratory Effort Blood Pressure Blood Pressure Mean Pulse Ox 92 Oxygen Delivery Method Nasal Cannula Oxygen Flow Rate (L/min) MDM MDM MDM Narrative Medical decision making narrative: Patient is hypoxic and he is worse on his normal 2 L, he was in the 80s. He is now improved but he is on 6 L. He is found to have Covid. I will admit him. We received Decadron and can get remdesivir upstairs. Lab Data Labs: Laboratory Results - last 24 hr 01/14/21 01/14/21 01/14/21 10:55 10:55 10:55 WBC 7.6 RBC 3.95 L Hgb 11.7 L Hct 38.9 L MCV 98.5 H MCH 29.6 MCHC 30.1 L RDW Std Deviation 58.2 H RDW Coeff of Thang 16.0 H Plt Count 112 L MPV 10.8 Immature Gran % (Auto) 2.600 H Neut % (Auto) 78.6 H Lymph % (Auto) 9.2 L Harper % (Auto) 8.6 Eos % (Auto) 0.5 Baso % (Auto) 0.5 Absolute Neuts (auto) 5.9 Absolute Lymphs (auto) 0.70 L Nucleated RBC % 0 Sodium 138 Potassium 4.3 Chloride 105 Carbon Dioxide 31.0 Anion Gap 2 L BUN 39 H Creatinine 1.36 H Estim Creat Clear Calc 47.01 Est GFR (MDRD) Af Amer 64 Est GFR (MDRD) Non-Af 53 L BUN/Creatinine Ratio 28.7 H Glucose 154 H Lactic Acid 0.9 Calcium 8.2 L Total Bilirubin 0.50 AST 24 ALT 20 Alkaline Phosphatase 57 Troponin I High Sens 106 H B-Natriuretic Peptide Total Protein 6.4 Albumin 2.8 L Globulin 3.6 Albumin/Globulin Ratio 0.8 L 01/14/21 10:55 WBC RBC Hgb Hct MCV MCH MCHC RDW Std Deviation RDW Coeff of Thang Plt Count MPV Immature Gran % (Auto) Neut % (Auto) Lymph % (Auto) Harper % (Auto) Eos % (Auto) Baso % (Auto) Absolute Neuts (auto) Absolute Lymphs (auto) Nucleated RBC % Sodium Potassium Chloride Carbon Dioxide Anion Gap BUN Creatinine Estim Creat Clear Calc Est GFR (MDRD) Af Amer Est GFR (MDRD) Non-Af BUN/Creatinine Ratio Glucose Lactic Acid Calcium Total Bilirubin AST ALT Alkaline Phosphatase Troponin I High Sens B-Natriuretic Peptide 366.3 H Total Protein Albumin Globulin Albumin/Globulin Ratio Radiography Diagnostic Testing: Radiology Impression Chest X-Ray 01/14/21 11:15 IMPRESSION: Poor inspiration with some bibasilar atelectasis. Electronically Signed: Marlon Anna MD at 11:41 EDT Tel , Service support , Critical Care Time Critical care time (excluding procedures): - (Critical care time 30 minutes. This includes documentation time at the bedside, discussing with consultants. It does not include procedures.) Discharge Plan Triage Chief Complaint: Shortness of Breath ED Provider: Zac Carrion Dx/Rx/DC Orders Clinical Impression: Hypoxia, COVID Prescriptions: No Action allopurinol 300 mg tablet 300 mg PO DAILY RF: 0 meclizine 12.5 mg tablet 12.5 mg PO DAILY RF: 0 pantoprazole 40 mg tablet,delayed release (DR/EC) 40 mg PO DAILY RF: 0 furosemide 20 mg tablet 40 mg PO DAILY RF: 0 rosuvastatin 10 mg tablet 10 mg PO QHS RF: 0 Eliquis 5 mg tablet 2.5 mg PO BID Qty: 180 RF: 3 budesonide 0.5 mg/2 mL suspension for nebulization 0.5 mg inhalation BID Qty: 120 RF: 6 ipratropium-albuterol 0.5 mg-3 mg(2.5 mg base)/3 mL solution for nebulization 3 ml inhalation Q4H Qty: 180 RF: 6 fluoxetine 40 MG capsule 40 mg PO DAILY RF: 0 levothyroxine 125 MCG tablet 125 mcg PO DAILY RF: 0 acetaminophen 500 MG tablet 1,000 mg PO Q6H PRN (Reason: Mild Pain (1-310)) RF: 0 tamsulosin 0.4 MG capsule 0.4 mg PO DAILY@1730 Qty: 30 RF: 0 dutasteride 0.5 MG capsule 0.5 mg PO DAILY RF: 0 Mucus Relief ER 1,200 mg Tablet Extended Release 12hr 1,200 mg PO BID 10 Days Qty: 20 RF: 0 albuterol sulfate 90 mcg/actuation HFA aerosol inhaler 2 puff inhalation Q4H PRN (Reason: shortness of breath or wheezing) Qty: 6.7 RF: 0 aspirin 81 mg tablet,delayed release (DR/EC) See Rx Instructions .ROUTE .COMPLEX Qty: 90 RF: 4 Primary Care Provider: Alexandro Lovell Referrals: Alexandro Lovell MD [Primary Care Provider] - Disposition Disposition: Acute Care Hospital [facility]
[2021-01-14] MEDS: Ipratropium/Albuterol Sulfate 3 ML AMPUL.NEB INHALATION (10:48)
[2021-01-14] MEDS: Albuterol 2.5 MG/3 ML VIAL.NEB. INHALATION ×2 (10:49)
[2021-01-14 11:12] LABS: Absolute Neutrophil Count 5.9 X10^3/uL (2.0-7.7); Basophil# 0.04 X10^3/uL; Basophil% 0.5 % (0-1); Eosinophil# 0.04 X10^3/uL; Eosinophils% 0.5 % (0-5); Hematocrit 38.9 % (40-54); Hemoglobin 11.7 g/dL (13.0-16.5); Lymphocyte % 9.2 % (19-41); Mean Corp Hgb Conc 30.1 g/dL (32-36); Mean Corpuscular Hgb 29.6 pg (27.0-32.0); Mean Corpuscular Volume 98.5 fL (80-94); Mean Platelet Vol. 10.8 fl (6.2-12.0); Monocyte# 0.65 X10^3/uL; Monocyte% 8.6 % (0-10); NRBC Flagged by Analyzer 0 % (0-5); Neutrophil # 5.94 X10^3/uL (2.7-7.7); Neutrophil % 78.6 % (47-70); Platelet Count 112 K/mm3 (150-450); RBC Distribution Width SD 58.2 fl (35.1-43.9); Red Blood Count 3.95 M/mm3 (4.6-6.2); White Blood Count 7.6 K/mm3 (4.4-11.0)
--- NOTE | 2021-01-14 11:15 | RAD_ITS ---
STUDY: X-RAY CHEST REASON FOR EXAM: Male, 85 years old. sob TECHNIQUE: Single AP portable view of the chest. COMPARISON: 11/24/2020 FINDINGS: Left subclavian dual-lead pacemaker which is unchanged. Status post median sternotomy. Poor inspiration with some bibasilar atelectasis. There is no demonstrated pleural abnormality. There is moderate cardiac enlargement. Normal mediastinum and joey. Normal visualized pulmonary arteries. Normal visualized aortic arch and descending thoracic aorta. Normal visualized thoracic spine. Normal visualized ribs, clavicles, and shoulders. There is no demonstrated abnormality of the visualized soft tissue structures of the upper abdomen. RAD/Chest 1 View (Portable) IMPRESSION: Poor inspiration with some bibasilar atelectasis. Electronically Signed: Marlon Anna MD at 11:41 EDT Tel , Service support ,
[2021-01-14 11:30] LABS: ALB/GLOB Ratio 0.8 RATIO (0.9-2.4); AST(SGOT) 24 U/L (15-37); Alanine Aminotransfer ALT/SGPT 20 U/L (16-61); Albumin, Serum 2.8 g/dL (3.2-5.0); Alkaline Phosphatase 57 U/L (45-117); Anion Gap 2 (5-15); BUN 39 mg/dL (7-18); BUN/Creat Ratio 28.7 RATIO (10-20); Calcium,Total 8.2 mg/dL (8.5-10.1); Chloride 105 mmol/L (98-107); Creatinine, Serum 1.36 mg/dL (0.70-1.30); EST Glomerular Filtration Rate 53 mL/min (>60); Est Glom Filt Rate - Afr Amer 64 mL/min (>60); Estimated Creatinine Clearance 47.01 ml/min; Globulin 3.6 g/dL (2.2-4.2); Glucose 154 mg/dL (74-106); Potassium 4.3 mmol/L (3.5-5.1); Protein, Total 6.4 g/dL (6.4-8.2); Sodium Level 138 mmol/L (136-145); Troponin-I HS 106 pg/mL (3.0-78.0)
[2021-01-14 11:35] LABS: Lactic Acid 0.9 mmol/L (0.4-1.9)
[2021-01-14 11:36] LABS: BNP,B-Type NATRIURETIC PEPTIDE 366.3 pg/mL (0-100)
--- NOTE | 2021-01-14 12:14 | NURSING ---
HOSPITALIST FOR DR MELTON
--- NOTE | 2021-01-14 12:17 | CT_ITS ---
STUDY: CTA CHEST REASON FOR EXAM: Male, 85 years old. PE RADIATION DOSAGE (If Supplied By Facility): CTDIvol = ( 16.22 ) mGy, DLP = ( 519.27 ) mGycm TECHNIQUE: The examination was performed with the intravenous administration of IV 100mL Isovue-370. Post-processing of the angiographic images was performed, with multiplanar reformation and 3D reconstruction. Individualized dose optimization techniques were used for this CT. COMPARISON: Chest x-ray earlier today, CT 11/24/2020 FINDINGS: Status post median sternotomy. Left subclavian pacemaker. Normal enhancement of the main pulmonary artery and right and left pulmonary arteries. Normal enhancement of the bilateral peripheral pulmonary arteries. There is no demonstrated pulmonary embolism. There is atherosclerotic calcification of the aortic arch with tortuosity. There is no demonstrated aortic dissection. Normal heart and pericardium. Normal mediastinum. Normal hilar regions. Normal visualized trachea and bronchi. The lungs are well expanded. Alveolar and groundglass density in the right upper lobe consistent with pneumonia. Some dependent bibasilar atelectasis. Normal pleura. Normal chest wall structures. Normal osseous structures. Normal visualized upper abdomen. CT/CTA Chest W/WO Contrast IMPRESSION: 1. No CT evidence of pulmonary embolism. 2. Right upper lobe pneumonia. Electronically Signed: Marlon Anna MD at 13:56 EDT Tel , Service support ,
[2021-01-14] MEDS: dexAMETHasone 10 MG/ML Vial 6 MG IV (12:24)
--- NOTE | 2021-01-14 12:24 | PCM.HP.STD ---
HPI - General General Date of Admission: 01/14/21 Date of Service: 01/14/21 Chief Complaint: Progressive shortness of breath -progressively worse over past 2 weeks HPI Narrative HIRAM KRUEGER, is a 85 M who presents progressive shortness of breath ongoing for about 2 weeks. Patient is a poor historian. He is hard of hearing. History was taken from the . Patient was recently seen on 828 by pulmonology. He was put on 4 L of oxygen. However the noticed that he needed progressively high amount of oxygen. Today she found him saturating 75% on 4 L of oxygen. He denied any chest pain or dizziness or diarrhea or loss of smell or taste. In the ED, he required 6 L of oxygen. His admitting blood work was unremarkable. His creatinine was at his baseline. Admitting chest x-ray showed bibasilar atelectasis. CTA of the chest was negative for acute PE. It did show right upper lobe pneumonia. His rapid antigen test for COVID-19 was positive PFS Medical History Acute blood loss anemia Atherosclerotic heart disease of [place] coronary artery without angina pectoris Atrial flutter Cellulitis Chest pain Chronic renal insufficiency CKD (chronic kidney disease) stage 3, GFR 30-59 ml/min COPD (chronic obstructive pulmonary disease) Depression Dizziness Essential hypertension GERD (gastroesophageal reflux disease) GI bleed Gout Healthcare associated bacterial pneumonia (Unknown) HTN (hypertension) Hyperkalemia Hyperlipidemia Hypothyroidism Macrocytic anemia Morbid obesity with BMI of 40.0-44.9, adult NSTEMI (non-ST elevated myocardial infarction) Old myocardial infarction Osteoarthritis Paroxysmal atrial fibrillation Pulmonary fibrosis Retinal artery occlusion Sepsis Sick sinus syndrome Home Medications levothyroxine 125 mcg PO DAILY 03/28/18 [History Last Taken 02/18/20] acetaminophen 1,000 mg PO Q6H PRN tab 07/25/18 [Rx Last Taken 01/14/21 12:00] allopurinol 300 mg tablet 300 mg PO DAILY 07/27/18 [History Last Taken 02/17/20] pantoprazole 40 mg tablet,delayed release 40 mg PO DAILY 08/16/18 [History Last Taken 02/18/20] meclizine 12.5 mg tablet 12.5 mg PO PRN PRN 08/24/19 [History Last Taken 02/17/20] rosuvastatin 10 mg tablet 10 mg PO QHS tab 02/11/20 [History Last Taken 02/17/20] dutasteride 0.5 mg PO DAILY 02/18/20 [History Last Taken 02/17/20] apixaban 5 mg tablet 2.5 mg PO BID #180 tab 03/06/20 [Rx Last Taken Unknown] furosemide 20 mg tablet 40 mg PO DAILY tab 04/24/20 [History Last Taken 01/13/21 12:00] albuterol sulfate 2 puff INHALATION Q4H PRN #6.7 g 11/25/20 [Rx Last Taken Unknown] aspirin See Rx Instructions .ROUTE .COMPLEX 01/14/21 [History Last Taken Unknown] budesonide 0.5 mg INHALATION BID 01/14/21 [History Last Taken Unknown] guaifenesin [Mucus Relief ER] 1,200 mg PO BID 01/14/21 [History Last Taken 01/14/21 08:00] ipratropium-albuterol 3 ml INHALATION Q4H 01/14/21 [History Last Taken Unknown] tamsulosin 0.4 mg PO DAILY@1730 01/14/21 [History Last Taken Unknown] Allergy/AdvReac Type Severity Reaction Status Date / Time atorvastatin [From Lipitor] AdvReac MUSCLE PAIN Verified 01/14/21 10:19 Family History Father Cancer Lung Heart disease Myocardial infarction Surgical History History of bilateral hip replacements History of permanent cardiac pacemaker placement (02/18/20) S/P coronary artery bypass graft x 2 (~06/23/18) Social History housing: house Smoking Status: Former smoker how long ago did patient quit smokin years ago alcohol intake: never substance use type: does not use caffeine: No what type of physical activity do you participate in: walking frequency: daily ROS ROS Narrative Constitutional: Reports: Malaise, Weakness, Fatigue. Denies: Anorexia, Chills, Fever, Night Sweats, Weight Change Eyes: Denies: Blurred vision, Cataracts, Conjunctivae Inflammation, Pain, Redness, Vision Change HEENT: Denies: Difficulty Hearing, Difficulty Swallowing, Head Aches, Hearing Changes, Sinus Congestion, Sinus Drainage Cardiovascular: Denies: Chest Pain, Orthopnea, Palpitations Respiratory: Admits to cough, Shortness of breath at rest, Sputum production Gastrointestinal: Denies: Abdominal Pain, Nausea, Vomiting Genitourinary: Denies: Dysuria Musculoskeletal: Denies: Joint Pain, Joint stiffness, Joint swelling, Joint Tenderness Skin: Denies: Rash, Wounds Neurological: Denies: Numbness, Tingling, Focal weakness Vital Signs Vital Signs Vital Signs: 01/14/21 10:20 01/14/21 10:28 01/14/21 10:55 Temperature 98.8 F 98.8 F Temperature Source Temporal Temporal Pulse Rate 71 71 Respiratory Rate 22 H 22 H Respiratory Effort Blood Pressure 113/57 L 113/57 L Blood Pressure Mean 75 75 Pulse Ox 84 93 93 Oxygen Delivery Method Room Air Nasal Cannula Nasal Cannula Oxygen Flow Rate (L/min) 4 01/14/21 11:00 01/14/21 11:22 01/14/21 11:26 Temperature 98.8 F Temperature Source Temporal Pulse Rate 77 85 Respiratory Rate 24 H 32 H Respiratory Effort Short of Breath Labored Accessory Muscle Use Blood Pressure 137/69 H Blood Pressure Mean 91 Pulse Ox 92 91 Oxygen Delivery Method Nasal Cannula Airvo Airvo Oxygen Flow Rate (L/min) 6 01/14/21 11:43 Temperature Temperature Source Pulse Rate Respiratory Rate Respiratory Effort Blood Pressure Blood Pressure Mean Pulse Ox 92 Oxygen Delivery Method Nasal Cannula Oxygen Flow Rate (L/min) Weight Weight: 122.47 kg Body Mass Index (BMI) 34.7 Physical Exam Narrative Physical exam: General: Alert, Oriented x3, Cooperative, obese, on 6 L of oxygen, in mild respiratory distress HEENT: Atraumatic Oral: Moist Mucosa Neck: Supple Lungs: Diminished, crackles at the bases Cardiovascular: HS I+II, regular, no murmurs Abdomen: Bowel Sounds Present, Soft, Non Tender Extremities: Bilateral leg edema +2-3 Skin: No rashes, No breakdown Neurological: Grossly intact Psych/Mental Status: Appropriate Results Lab / Micro Data Result Diagrams: 01/14/21 10:55 01/14/21 10:55 Labs: Laboratory Results - last 24 hr 01/14/21 10:55: WBC 7.6, RBC 3.95 L, Hgb 11.7 L, Hct 38.9 L, MCV 98.5 H, MCH 29.6, MCHC 30.1 L, RDW Std Deviation 58.2 H, RDW Coeff of Thang 16.0 H, Plt Count 112 L, MPV 10.8, Immature Gran % (Auto) 2.600 H, Neut % (Auto) 78.6 H, Lymph % (Auto) 9.2 L, [place] % (Auto) 8.6, Eos % (Auto) 0.5, Baso % (Auto) 0.5, Absolute Neuts (auto) 5.9, Absolute Lymphs (auto) 0.70 L, Nucleated RBC % 0 01/14/21 10:55: Sodium 138, Potassium 4.3, Chloride 105, Carbon Dioxide 31.0, Anion Gap 2 L, BUN 39 H, Creatinine 1.36 H, Estim Creat Clear Calc 47.01, Est GFR (MDRD) Af Amer 64, Est GFR (MDRD) Non-Af 53 L, BUN/Creatinine Ratio 28.7 H, Glucose 154 H, Calcium 8.2 L, Total Bilirubin 0.50, AST 24, ALT 20, Alkaline Phosphatase 57, Troponin I High Sens 106 H, Total Protein 6.4, Albumin 2.8 L, Globulin 3.6, Albumin/Globulin Ratio 0.8 L 01/14/21 10:55: Lactic Acid 0.9 01/14/21 10:55: B-Natriuretic Peptide 366.3 H Micro: Microbiology 01/14/21 10:55 Nasal Secretion SARS-CoV-2 Antigen (Rapid) - Final SARS-CoV-2 (COVID 19) Radiology Impression Chest X-Ray 01/14/21 11:15 IMPRESSION: Poor inspiration with some bibasilar atelectasis. Electronically Signed: Marlon Anna MD at 11:41 EDT Tel , Service support , Assessment & Plan Assessment/Plan (1) Acute and chronic respiratory failure with hypoxia: (2) Hypoxia: (3) COVID: (4) AROLDO (obstructive sleep apnea): (5) Sick sinus syndrome: (6) Hyperlipidemia: QUALIFIERS: Hyperlipidemia type: unspecified Qualified Code(s): E78.5 - Hyperlipidemia, unspecified (7) Paroxysmal atrial fibrillation: (8) S/P coronary artery bypass graft x 2: (9) Depression: QUALIFIERS: Depression Type: unspecified Qualified Code(s): F32.9 - Major depressive disorder, single episode, unspecified (10) GERD (gastroesophageal reflux disease): QUALIFIERS: Esophagitis presence: esophagitis presence not specified Qualified Code(s): K21.9 - Gastro-esophageal reflux disease without esophagitis (11) Atherosclerotic heart disease of [place] coronary artery without angina pectoris: QUALIFIERS: [place] vs. transplanted heart: [place] heart Qualified Code(s): I25.10 - Atherosclerotic heart disease of [place] coronary artery without angina pectoris (12) Essential hypertension: PLAN: 1. Acute on chronic hypoxic respiratory failure secondary to acute COVID-19 pneumonia Patient's rapid Covid test was positive He is currently saturating on 6 L of oxygen, BMP is 366.3 We will give a trial of Lasix, breathing treatment, Decadron We will hold off on ordering remdesivir as I am not sure when his symptoms started 2. Elevated troponin likely secondary to #1, would not trend 3. Rest of his chronic medical conditions appear stable Home meds reviewed I discussed and explained in details the various types of CODE STATUS-full code, DNR CCA, DNR CC. Patient chose full code. Time spent discussing CODE STATUS 18 minutes Charges/Coding Visit Charges Inpatient E&M: 87918 Init Hosp L3 Procedures Hospitalists Procedures: 99506 Advncd Care Plan 30 Min
--- NOTE | 2021-01-14 13:02 | NURSING ---
119 covid, hypoxia naumah
[2021-01-14] MEDS: Furosemide 40 MG/4 ML Vial IV (14:56)
[2021-01-14] MEDS: 0.9% Saline Lock 10 ML Syringe IV (14:56)
--- NOTE | 2021-01-14 16:00 | EX.PCM.CONCC ---
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 Initiate Decadron. No Remdesivir given unclear onset 2. Obtain sputum culture 3. Wean oxygen as tolerated 4. Consider using pillow for splinting to help with pulmonary toileting 5. Agree with diuresis as tolerated 6. Initiate a mucolytic 7. Follow-up on recent sleep study results when available IMPRESSIONS: 1. Acute on chronic hypoxic respiratory failure secondary to COVID-19 Patient did have moderately severe mixed ventilatory defect prior to onset of COVID-19. Unclear how much hypoxia is related to acute infection. Patient does have a moist cough, so bacterial infection should be ruled out with a sputum culture. Patient also appears to be somewhat overloaded and has an elevated BNP. Agree with empiric diuresis. Patient is on Pulmicort at baseline, but this does not need to be continued given high dose Decadron. Patient did have a recent sleep study, but the results are not available. Initiation of AROLDO therapy once this is available would be recommended 2. 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 Clinical suspicion for an element of congestive heart failure complicating presentation. Agree with empiric diuresis. Would caution against full anticoagulation given history of GI bleed and relative anemia. Patient's nonunion of the sternum will make use of vest therapy for pulmonary toileting unpleasant, but patient may be able to tolerate an Acapella. Patient is on apixaban at baseline, but this should likely be held given concerns for possible need for interventions. 3. Depression/hypertension/GERD/history of GI bleed/hyperlipidemia/osteoarthritis/obesity/CKD stage III Complicates care, management, recovery and prognosis. We will have to watch patient for signs and symptoms of delirium given IV steroids. Patient will also be at risk for bleeding and already has an element of anemia. Okay to continue with baseline medications from my perspective except for Eliquis, Pulmicort and allopurinol HPI Consult Data Date of Consult: 01/14/21 HPI Narrative HPI Narrative: HIRAM KRUEGER, is an 85 M, with past medical history listed below, who presents to [facility] [place] on 01/14/2021 secondary to progressive shortness of breath. Patient states that he was placed on supplemental oxygen approximately 4 weeks ago and has not felt right since. Patient states he has had a productive cough, but is unaware of any fevers. Patient did have some subjective chills approximately 2 to 3 days ago. Patient states he has had lower extremity edema and believes he is at his baseline at this time. Patient does follow with Dr. Aj in our office. In the ER, patient was afebrile and normotensive at 113/57. Patient did require 4 L initially to maintain saturations, but eventually was on Airvo for short period of time secondary to hypoxia. Laboratory work-up was relatively unremarkable except for anemia of 11.7, thrombocytopenia of 112 and an elevated creatinine of 1.36. Lactate was within normal limits. Troponin was slightly elevated at 106 and BNP was elevated at 366. Chest x-ray showed some bibasilar atelectasis and patient did have a Covid test that was positive. Patient was then admitted to the progressive care unit. On my evaluation in the progressive care unit, patient felt that he was improved subjectively. Patient was not reporting any chest pain, abdominal pain, nausea or vomiting. Patient has not had any recent diarrhea. Patient does report that he was vaccinated with Moderna in June. Patient states that he was being worked up for some interstitial lung disease and was placed on oxygen before ten COVID-19. Patient does have an extensive cardiac history also. Patient is not reporting any blood loss such as hemoptysis, melena or hematochezia. Patient is unaware of renal dysfunction in the past, but believes I may have had some kidney problems related to water pills. Review of systems otherwise negative from a constitutional, HEENT, respiratory, cardiovascular, GI, genitourinary, musculoskeletal, skin, neurologic, psychiatric and hematologic system unless stated above. [facility] Medical History Acute blood loss anemia Atherosclerotic heart disease of [place] coronary artery without angina pectoris Atrial flutter Cellulitis Chest pain Chronic renal insufficiency CKD (chronic kidney disease) stage 3, GFR 30-59 ml/min COPD (chronic obstructive pulmonary disease) Depression Dizziness Essential hypertension GERD (gastroesophageal reflux disease) GI bleed Gout Healthcare associated bacterial pneumonia (Unknown) HTN (hypertension) Hyperkalemia Hyperlipidemia Hypothyroidism Macrocytic anemia Morbid obesity with BMI of 40.0-44.9, adult NSTEMI (non-ST elevated myocardial infarction) Old myocardial infarction Osteoarthritis Paroxysmal atrial fibrillation Pulmonary fibrosis Retinal artery occlusion Sepsis Sick sinus syndrome Home Medications levothyroxine 125 mcg PO DAILY 03/28/18 [History Last Taken 02/18/20] acetaminophen 1,000 mg PO Q6H PRN tab 07/25/18 [Rx Last Taken 01/14/21 12:00] allopurinol 300 mg tablet 300 mg PO DAILY 07/27/18 [History Last Taken 02/17/20] pantoprazole 40 mg tablet,delayed release 40 mg PO DAILY 08/16/18 [History Last Taken 02/18/20] meclizine 12.5 mg tablet 12.5 mg PO PRN PRN 08/24/19 [History Last Taken 02/17/20] rosuvastatin 10 mg tablet 10 mg PO QHS tab 02/11/20 [History Last Taken 02/17/20] dutasteride 0.5 mg PO DAILY 02/18/20 [History Last Taken 02/17/20] apixaban 5 mg tablet 2.5 mg PO BID #180 tab 03/06/20 [Rx Last Taken Unknown] furosemide 20 mg tablet 40 mg PO DAILY tab 04/24/20 [History Last Taken 01/13/21 12:00] albuterol sulfate 2 puff INHALATION Q4H PRN #6.7 g 11/25/20 [Rx Last Taken Unknown] aspirin See Rx Instructions .ROUTE .COMPLEX 01/14/21 [History Last Taken Unknown] budesonide 0.5 mg INHALATION BID 01/14/21 [History Last Taken Unknown] guaifenesin [Mucus Relief ER] 1,200 mg PO BID 01/14/21 [History Last Taken 01/14/21 08:00] ipratropium-albuterol 3 ml INHALATION Q4H 01/14/21 [History Last Taken Unknown] tamsulosin 0.4 mg PO DAILY@1730 01/14/21 [History Last Taken Unknown] Allergy/AdvReac Type Severity Reaction Status Date / Time atorvastatin [From Lipitor] AdvReac MUSCLE PAIN Verified 01/14/21 10:19 Family History Father Cancer Lung Heart disease Myocardial infarction Surgical History History of bilateral hip replacements History of permanent cardiac pacemaker placement (02/18/20) S/P coronary artery bypass graft x 2 (~06/23/18) Social History housing: house Smoking Status: Former smoker how long ago did patient quit smokin years ago alcohol intake: never substance use type: does not use caffeine: No what type of physical activity do you participate in: walking frequency: daily ROS ROS Narrative See HPI Physical Exam Const alert, oriented x3 and no apparent distress General Appearance: cooperative and well developed; Negative for uncooperative or combative Nutritional Appearance: obese HEENT normocephalic, head/scalp atraumatic and moist oral mucous membranes Eyes PERRL and EOMs intact bilaterally Neck full ROM and no lymphadenopathy Chest Chest Narrative: 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 Resp Resp Narrative: Mild conversational dyspnea Auscultation: rhonchi throughout and diminished lung sounds; Negative for rales or wheezes Percussion: Negative for dullness Cardio regular rate, regular rhythm, S1 normal heart sound, S2 normal heart sound, no murmurs, no rub and no gallops GI normal to inspection, nondistended, normoactive bowel sounds no CVA tenderness Extremity General Extremity: edema bilateral (2+) lower extremity; Negative for clubbing or cyanosis Skin no rashes or lesions noted Neuro oriented x3, CN's II-XII intact bilaterally, moves all extremities and no focal motor deficits Psych cooperative and affect normal Lab / Micro Data Result Diagrams: 01/14/21 10:55 01/14/21 10:55 Labs: Laboratory Results - last 24 hr 01/14/21 10:55: WBC 7.6, RBC 3.95 L, Hgb 11.7 L, Hct 38.9 L, MCV 98.5 H, MCH 29.6, MCHC 30.1 L, RDW Std Deviation 58.2 H, RDW Coeff of Thang 16.0 H, Plt Count 112 L, MPV 10.8, Immature Gran % (Auto) 2.600 H, Neut % (Auto) 78.6 H, Lymph % (Auto) 9.2 L, [place] % (Auto) 8.6, Eos % (Auto) 0.5, Baso % (Auto) 0.5, Absolute Neuts (auto) 5.9, Absolute Lymphs (auto) 0.70 L, Nucleated RBC % 0 01/14/21 10:55: Sodium 138, Potassium 4.3, Chloride 105, Carbon Dioxide 31.0, Anion Gap 2 L, BUN 39 H, Creatinine 1.36 H, Estim Creat Clear Calc 47.01, Est GFR (MDRD) Af Amer 64, Est GFR (MDRD) Non-Af 53 L, BUN/Creatinine Ratio 28.7 H, Glucose 154 H, Calcium 8.2 L, Total Bilirubin 0.50, AST 24, ALT 20, Alkaline Phosphatase 57, Troponin I High Sens 106 H, Total Protein 6.4, Albumin 2.8 L, Globulin 3.6, Albumin/Globulin Ratio 0.8 L 01/14/21 10:55: Lactic Acid 0.9 01/14/21 10:55: B-Natriuretic Peptide 366.3 H Micro: Microbiology 01/14/21 10:55 Nasal Secretion SARS-CoV-2 Antigen (Rapid) - Final SARS-CoV-2 (COVID 19) Radiology Impression Chest X-Ray 01/14/21 11:15 IMPRESSION: Poor inspiration with some bibasilar atelectasis. Electronically Signed: Marlon Anna MD at 11:41 EDT Tel , Service support , Chest CTA 01/14/21 12:[address]: [address] evidence of pulmonary embolism. 2. Right upper lobe pneumonia. Electronically Signed: Marlon Anna MD at 13:56 EDT Tel , Service support , Charges/Coding Visit Charges Inpatient E&M: 27597 Init Hosp L3
[2021-01-14] MEDS: Enoxaparin 30 MG/0.3 ML Syringe SC (21:09)
[2021-01-14] MEDS: guaiFENesin 1,200 MG Tablet 1200 MG PO (21:09)
[2021-01-15] VITALS (18 sets, daily range): BP systolic 114–124; BP diastolic 51–74; PULSE 61–78; RESP 17–24; TEMP 36.4–37.2; O2SAT 93–96
[2021-01-15 07:50] LABS: Absolute Lymphocyte Count 0.39 X10^3/uL (0.83-4.51); Absolute Neutrophil Count 4.7 X10^3/uL (2.0-7.7); Basophil# 0.03 X10^3/uL; Basophil% 0.5 % (0-1); Hemoglobin 11.8 g/dL (13.0-16.5); Lymphocyte # 0.39 X10^3/ul (0.83-4.51); Lymphocyte % 6.8 % (19-41); Mean Corp Hgb Conc 29.5 g/dL (32-36); Mean Corpuscular Hgb 29.4 pg (27.0-32.0); Mean Corpuscular Volume 99.5 fL (80-94); Mean Platelet Vol. 11.3 fl (6.2-12.0); Monocyte# 0.42 X10^3/uL; Monocyte% 7.3 % (0-10); NRBC Flagged by Analyzer 0 % (0-5); Neutrophil # 4.69 X10^3/uL (2.7-7.7); Neutrophil % 81.2 % (47-70); POSITIVE DIFFERENTIAL YES; Platelet Count 101 K/mm3 (150-450); RBC Distribution Width CV 15.9 % (11.6-14.6); RBC Distribution Width SD 58.3 fl (35.1-43.9); Red Blood Count 4.02 M/mm3 (4.6-6.2); White Blood Count 5.8 K/mm3 (4.4-11.0)
[2021-01-15 07:54] LABS: Differential Indicated SCAN CRITERIA MET
[2021-01-15 08:17] LABS: ALB/GLOB Ratio 0.8 RATIO (0.9-2.4); AST(SGOT) 22 U/L (15-37); Alanine Aminotransfer ALT/SGPT 18 U/L (16-61); Albumin, Serum 2.8 g/dL (3.2-5.0); Alkaline Phosphatase 54 U/L (45-117); Anion Gap 3 (5-15); BUN 52 mg/dL (7-18); BUN/Creat Ratio 35.9 RATIO (10-20); Calcium,Total 8.7 mg/dL (8.5-10.1); Chloride 106 mmol/L (98-107); Creatinine, Serum 1.45 mg/dL (0.70-1.30); EST Glomerular Filtration Rate 49 mL/min (>60); Est Glom Filt Rate - Afr Amer 60 mL/min (>60); Estimated Creatinine Clearance 44.09 ml/min; Globulin 3.7 g/dL (2.2-4.2); Glucose 156 mg/dL (74-106); Potassium 4.7 mmol/L (3.5-5.1); Protein, Total 6.5 g/dL (6.4-8.2); Sodium Level 139 mmol/L (136-145)
[2021-01-15 08:41] LABS: BNP,B-Type NATRIURETIC PEPTIDE 272.8 pg/mL (0-100)
[2021-01-15] MEDS: guaiFENesin 1,200 MG Tablet 1200 MG PO ×2 (10:22→22:33)
[2021-01-15] MEDS: Furosemide 40 MG/4 ML Vial IV ×2 (10:23→17:27)
[2021-01-15] MEDS: 0.9% Saline Lock 10 ML Syringe IV ×2 (10:23→17:26)
[2021-01-15] MEDS: dexAMETHasone 10 MG/ML Vial 6 MG IV (10:24)
[2021-01-15] MEDS: Enoxaparin 30 MG/0.3 ML Syringe SC ×2 (10:28→22:33)
--- NOTE | 2021-01-15 14:26 | PN.CC_ITS ---
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 Continue Decadron to complete 10 days. No Remdesivir given unclear onset 2. Initiate empiric antibiotics given positive culture 3. Wean oxygen as tolerated 4. Consider using pillow for splinting to help with pulmonary toileting 5. Continue with diuresis as tolerated 6. Continue aggressive pulmonary toileting 7. Follow-up on recent sleep study results when available IMPRESSIONS: 1. Acute on chronic hypoxic respiratory failure secondary to COVID-19 Patient did have moderately severe mixed ventilatory defect prior to onset of COVID-19. Patient does have a gram-negative in his sputum. Given his underlying lung disease and risk for complications, will start empirically on Levaquin therapy. Patient also appeared to be somewhat overloaded and has an elevated BNP on presentation. Agree with empiric diuresis. Patient is on Pulmicort at baseline, but this does not need to be continued given high dose D ecadron. Patient did have a recent sleep study, but the results are not available. Initiation of AROLDO therapy once this is available would be recommended 2. 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 Clinical suspicion for an element of congestive heart failure complicating presentation. Agree with empiric diuresis. Would caution against full anticoagulation given history of GI bleed and relative anemia. Patient's nonunion of the sternum will make use of vest therapy for pulmonary toileting unpleasant, but patient may be able to tolerate an Acapella. Patient is on apixaban at baseline, but this should likely be held given concerns for possible need for interventions. 3. Depression/hypertension/GERD/history of GI bleed/hyperlipidemia/osteoarthritis/obesity/CKD stage III Complicates care, management, recovery and prognosis. We will have to watch patient for signs and symptoms of delirium given IV steroids. Patient will also be at risk for bleeding and already has an element of anemia. Okay to continue with baseline medications from my perspective except for Eliquis, Pulmicort and allopurinol Subjective Subjective Patient did okay overnight. Patient is reporting subjectively slightly improved compared to yesterday. Patient's productive cough appears to be improving. Patient denies any current chest pain, nausea or vomiting. Patient did have progression in oxygen requirements over the last 24 hours and is currently on Airvo to maintain saturations. Objective Data Objective Data Vital Signs: Vital Signs Temp Pulse Resp BP Pulse Ox 36.4 C L 68 18 124/74 H 95 01/15/21 09:00 01/15/21 13:24 01/15/21 13:24 01/15/21 09:00 01/15/21 13:24 Oxygen Flow Rate (L/min) 11 Oxygen Delivery Method Airvo Weight: 130.6 kg Body Mass Index (BMI) 36.4 Intake & Output: Intake and Output for Last 24 Hours 01/13/21 01/14/21 01/15/21 23:59 23:59 23:59 Intake Total 0 / 0 Output Total 800 / 800 300 / 300 Balance -800 / -800 -300 / -300 Lab / Micro Data Result Diagrams: 01/15/21 07:15 01/15/21 07:15 Labs: Laboratory Results - last 24 hr 01/15/21 07:15: WBC 5.8, RBC 4.02 L, Hgb 11.8 L, Hct 40.0, MCV 99.5 H, MCH 29.4, MCHC 29.5 L, RDW Std Deviation 58.3 H, RDW Coeff of Thang 15.9 H, Plt Count 101 L, MPV 11.3, Immature Gran % (Auto) 4.200 H, Neut % (Auto) 81.2 H, Lymph % (Auto) 6.8 L, [place] % (Auto) 7.3, Eos % (Auto) 0.0, Baso % (Auto) 0.5, Absolute Neuts (auto) 4.7, Absolute Lymphs (auto) 0.39 L, Nucleated RBC % 0 01/15/21 07:15: Sodium 139, Potassium 4.7, Chloride 106, Carbon Dioxide 30.0, Anion Gap 3 L, BUN 52 H, Creatinine 1.45 H, Estim Creat Clear Calc 44.09, Est GFR (MDRD) Af Amer 60, Est GFR (MDRD) Non-Af 49 L, BUN/Creatinine Ratio 35.9 H, Glucose 156 H, Calcium 8.7, Total Bilirubin 0.50, AST 22, ALT 18, Alkaline Phosphatase 54, Total Protein 6.5, Albumin 2.8 L, Globulin 3.7, Albumin/Globulin Ratio 0.8 L 01/15/21 07:15: B-Natriuretic Peptide 272.8 H Micro: Microbiology 01/14/21 17:30 Sputum, Expectorated/Coughed Gram Stain - Final 01/14/21 17:30 Sputum, Expectorated/Coughed Respiratory Culture - Preliminary GNR lactose letterpress setter 01/14/21 16:00 Mucosa - Nasopharyngeal Respiratory Panel (PCR) - Final 01/14/21 16:00 Urine, Clean Catch Legionella Antigen - Final 01/14/21 16:00 Urine, Clean Catch Streptococcus pneumoniae Antigen (M - Final 01/14/21 10:55 Nasal Secretion SARS-CoV-2 Antigen (Rapid) - Final SARS-CoV-2 (COVID 19) Physical Exam Const alert, oriented x3 and no apparent distress General Appearance: cooperative and well developed; Negative for uncooperative or combative Nutritional Appearance: obese HEENT normocephalic, head/scalp atraumatic and moist oral mucous membranes Eyes PERRL and EOMs intact bilaterally Neck full ROM and no lymphadenopathy Chest Chest Narrative: 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 Resp Resp Narrative: Mild conversational dyspnea Auscultation: rhonchi throughout and diminished lung sounds; Negative for rales or wheezes Percussion: Negative for dullness Cardio regular rate, regular rhythm, S1 normal heart sound, S2 normal heart sound, no murmurs, no rub and no gallops GI normal to inspection, nondistended, normoactive bowel sounds no CVA tenderness Extremity General Extremity: edema bilateral (2+) lower extremity; Negative for clubbing or cyanosis Skin no rashes or lesions noted Neuro oriented x3, CN's II-XII intact bilaterally, moves all extremities and no focal motor deficits Psych cooperative and affect normal Charges/Coding Visit Charges Inpatient E&M: 75334 Subs Hosp L3
--- NOTE | 2021-01-15 14:27 | PCM.PN.HOSP ---
Documented by User: Teo WELSH 01/15/21 14:41 Subjective Subjective Patient is an 85-year-old male comfortably resting in bed, alert and oriented x3. Patient still endorses being short of breath from admission, although reports improvement. Denies chest pain, palpitations, hemoptysis, fever, chills, N/V/D. Objective Data Objective Data Vital Signs: Vital Signs Temp Pulse Resp BP Pulse Ox 97.6 F L 68 18 124/74 H 95 01/15/21 09:00 01/15/21 13:24 01/15/21 13:24 01/15/21 09:00 01/15/21 13:24 Oxygen Flow Rate (L/min) 11 Oxygen Delivery Method Airvo Weight: 287 lb 14.779 oz Body Mass Index (BMI) 36.4 Intake & Output: Intake and Output for Last 24 Hours 01/13/21 01/14/21 01/15/21 23:59 23:59 23:59 Intake Total 0 / 0 Output Total 800 / 800 300 / 300 Balance -800 / -800 -300 / -300 Lab / Micro Data Result Diagrams: 01/15/21 07:15 01/15/21 07:15 Labs: Laboratory Results - last 24 hr 01/15/21 07:15: WBC 5.8, RBC 4.02 L, Hgb 11.8 L, Hct 40.0, MCV 99.5 H, MCH 29.4, MCHC 29.5 L, RDW Std Deviation 58.3 H, RDW Coeff of Thang 15.9 H, Plt Count 101 L, MPV 11.3, Immature Gran % (Auto) 4.200 H, Neut % (Auto) 81.2 H, Lymph % (Auto) 6.8 L, [place] % (Auto) 7.3, Eos % (Auto) 0.0, Baso % (Auto) 0.5, Absolute Neuts (auto) 4.7, Absolute Lymphs (auto) 0.39 L, Nucleated RBC % 0 01/15/21 07:15: Sodium 139, Potassium 4.7, Chloride 106, Carbon Dioxide 30.0, Anion Gap 3 L, BUN 52 H, Creatinine 1.45 H, Estim Creat Clear Calc 44.09, Est GFR (MDRD) Af Amer 60, Est GFR (MDRD) Non-Af 49 L, BUN/Creatinine Ratio 35.9 H, Glucose 156 H, Calcium 8.7, Total Bilirubin 0.50, AST 22, ALT 18, Alkaline Phosphatase 54, Total Protein 6.5, Albumin 2.8 L, Globulin 3.7, Albumin/Globulin Ratio 0.8 L 01/15/21 07:15: B-Natriuretic Peptide 272.8 H Micro: Microbiology 01/14/21 17:30 Sputum, Expectorated/Coughed Gram Stain - Final 01/14/21 17:30 Sputum, Expectorated/Coughed Respiratory Culture - Preliminary GNR lactose microbiology technician 01/14/21 16:00 Mucosa - Nasopharyngeal Respiratory Panel (PCR) - Final 01/14/21 16:00 Urine, Clean Catch Legionella Antigen - Final 01/14/21 16:00 Urine, Clean Catch Streptococcus pneumoniae Antigen (M - Final 01/14/21 10:55 Nasal Secretion SARS-CoV-2 Antigen (Rapid) - Final SARS-CoV-2 (COVID 19) Physical Exam Const alert and no apparent distress HEENT head/scalp atraumatic and moist oral mucous membranes Head and Scalp: normocephalic Eyes PERRL, EOMs intact bilaterally and conjunctivae normal Neck no lymphadenopathy, supple and no JVD Resp Effort and Inspection: tachypneic, respiratory distress and labored Auscultation: diminished lung sounds Cardio regular rate, regular rhythm, no murmurs and no JVD GI normal to inspection, nondistended, normoactive bowel sounds, soft to palpation and non-tender Extremity normal to inspection, full ROM and no clubbing, cyanosis or edema Skin no rashes or lesions noted, no wounds, skin turgor normal and no jaundice Neuro CN's II-XII intact bilaterally Psych affect normal Assessment & Plan Assessment/Plan (1) Acute and chronic respiratory failure with hypoxia: (2) Hypoxia: (3) COVID: (4) AROLDO (obstructive sleep apnea): PLAN: Day 2 Discharge planning: Patient to discharge home when medically ready, no home health care needs or additional therapies identified. 1) acute respiratory failure secondary to acute COVID-19 pneumonia Currently satting at 95% with an FiO2 of 50 on Airvo. Patient does endorse being fully vaccinated for COVID-19 in June and July. Remdesivir not initiated due to not knowing when patient symptoms began. Pulmonology consult ordered. Plan; remain admitted to PCU, continue incentive spirometry and scheduled duo nebs, continue dexamethasone, continue Mucinex. Levaquin initiated per pulmonology. 2) elevated troponin Likely demand secondary to #1. Will not trend. DVT prophylaxis - Lovenox Patient seen by Teo Barbosa PA-C, under the supervision of Dr. Mcdonald. Documented by User: Dr. Nakita Mcdonald MD 01/15/21 15:05 Objective Data Lab / Micro Data Result Diagrams: 01/15/21 07:15 01/15/21 07:15 Charges/Coding Addendum Addendum: This patient was seen in conjunction with BLAISE Lowe. I have independently interviewed and examined the patient and reviewed pertinent historical, laboratory, and other data. Please refer to BLAISE Lowe's note for his patient's presentation, findings, and recommendations. I have reviewed and his note and concur with his documentation Patient was seen and examined. He is currently on Airvo 55 L. He denied any new complaints. Physical exam: General: Alert, Oriented x3, Cooperative, obese, on Airvo oxygen HEENT: Atraumatic Oral: Moist Mucosa Neck: Supple Lungs: Diminished, crackles at the bases Cardiovascular: HS I+II, regular, no murmurs Abdomen: Bowel Sounds Present, Soft, Non Tender Extremities: Bilateral leg edema +2-3 Skin: No rashes, No breakdown Neurological: Grossly intact Psych/Mental Status: Appropriate ASSESSMENT: 1. Acute on chronic hypoxic respiratory failure secondary to acute COVID-19 pneumonia 2. Elevated troponin 3. 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 Probable acute exacerbation of heart failure with preserved EF, EF 55% Plan: Continue with Levaquin Continue on high flow oxygen, Decadron Continue on Lasix IV Continue to encourage incentive spirometer, breathing treatments Visit Charges Inpatient E&M: 67440 [facility] Hosp L3
--- NOTE | 2021-01-15 15:30 | CASEMGMT ---
RN CM WASTE TREATMENT OPERATOR RISHI spoke w/pt for initial transition planning/care coordination assessment. LÓPEZ BLACKWELL introduced self and role at [facility]. Pt voices understanding and consents to assessment at this time. Pt is A/O at this time and answers all questions appropriately. Care providers, pharmacy, and demographics verified/updated at this time. PCP: Dr Lovell Specialists: Dr Aj--pulmonology. Pt states Dr Aj's office was working on getting pt set up w/RA physician Preferred [facility]acy: [facility] Insurance:[employer] WOOTEN Prescription Benefit: Pt is not sure if he has this, as his takes care of this. Living Will/HPOA: States has both LW and Healthcare POA, who is his , Kanika. LNOK: , Kanika. 2 sons: Tacho Living Arrangements: Lives w/ in one-story home w/basement that has rails on one side. Pt states he goes up and down the stairs 3-4 x's/day for exercise. He denies difficulty w/stairs. 2 steps to enter home. Independent. Pt states he is very active and still works. Transportation: Pt states drives self and states no transportation concerns at this time. also drives DME: States has the following DME: rails/grab bars, nebulizer, O2 @ 1-2 L/M @ rest and 4 L/M w/exertion through [employer]. Pt states no need for further DME at this time. HHC/SNF: Hx of TCU. No history of HHC. Pt states he wishes to return home and does not feel that he needs HHC, although he does state, that he would be agreeable to it, if needed. Pt wishes to return home and states has no concerns with going home at time of discharge. Pt states does not smoke or drink ETOH. CM to follow for home oxygen needs and any further discharge planning/needs. Pt voices no further concerns/needs at this time. Advised pt to ask for CM if any further questions/concerns/needs arise. Voices understanding. PLAN: Home. Follow for any increase in O2 needs @ d/c. PT/OT eVals pending. Follow for possible HHC. Kendra STEINN LÓPEZ BLACKWELL
[2021-01-15] MEDS: levoFLOXacin 500 MG Tablet PO (16:06)
[2021-01-15] MEDS: Ipratropium/Albuterol Sulfate 3 ML AMPUL.NEB INHALATION ×2 (17:00→22:40)
--- NOTE | 2021-01-15 19:41 | NURSING ---
emergency documentation started at 1939
[2021-01-16] VITALS (18 sets, daily range): BP systolic 107–132; BP diastolic 49–88; PULSE 64–83; RESP 18–25; TEMP 36.7–36.9; O2SAT 92–96
[2021-01-16] MEDS: levoFLOXacin 250 MG Tablet PO (05:04)
[2021-01-16 05:57] LABS: Absolute Lymphocyte Count 0.55 X10^3/uL (0.83-4.51); Basophil# 0.02 X10^3/uL; Basophil% 0.2 % (0-1); Hematocrit 36.6 % (40-54); Hemoglobin 11.1 g/dL (13.0-16.5); Lymphocyte # 0.55 X10^3/ul (0.83-4.51); Mean Corp Hgb Conc 30.3 g/dL (32-36); Mean Corpuscular Hgb 29.2 pg (27.0-32.0); Mean Corpuscular Volume 96.3 fL (80-94); Mean Platelet Vol. 10.8 fl (6.2-12.0); Monocyte# 0.47 X10^3/uL; Monocyte% 5.1 % (0-10); NRBC Flagged by Analyzer 0 % (0-5); Neutrophil % 87.3 % (47-70); POSITIVE DIFFERENTIAL YES; Platelet Count 114 K/mm3 (150-450); RBC Distribution Width CV 15.4 % (11.6-14.6); RBC Distribution Width SD 54.5 fl (35.1-43.9); White Blood Count 9.2 K/mm3 (4.4-11.0)
[2021-01-16 06:07] LABS: Differential Indicated SCAN CRITERIA MET
[2021-01-16 06:26] LABS: Anion Gap 8 (5-15); BUN 60 mg/dL (7-18); BUN/Creat Ratio 40.3 RATIO (10-20); Calcium,Total 8.2 mg/dL (8.5-10.1); Chloride 103 mmol/L (98-107); Creatinine, Serum 1.49 mg/dL (0.70-1.30); EST Glomerular Filtration Rate 48 mL/min (>60); Est Glom Filt Rate - Afr Amer 58 mL/min (>60); Estimated Creatinine Clearance 42.91 ml/min; Glucose 157 mg/dL (74-106); Potassium 4.6 mmol/L (3.5-5.1); Sodium Level 139 mmol/L (136-145)
[2021-01-16 06:40] LABS: Differential Comment SCANNED
[2021-01-16] MEDS: Ipratropium/Albuterol Sulfate 3 ML AMPUL.NEB INHALATION ×3 (07:24→19:21)
[2021-01-16] MEDS: Enoxaparin 30 MG/0.3 ML Syringe SC ×2 (08:50→22:07)
[2021-01-16] MEDS: Furosemide 40 MG/4 ML Vial IV ×2 (08:53→17:40)
[2021-01-16] MEDS: guaiFENesin 1,200 MG Tablet 1200 MG PO ×2 (08:53→22:07)
[2021-01-16] MEDS: dexAMETHasone 10 MG/ML Vial 6 MG IV (08:53)
[2021-01-16] MEDS: 0.9% Saline Lock 10 ML Syringe IV ×2 (08:54→17:40)
--- NOTE | 2021-01-16 11:12 | CASEMGMT ---
[place] [facility] [place] 2[place] continuous. Pt will need tested on 2L at rest and 2L with ambulation once ready for discharge. Green sheet on chart for increased home oxygen need and CM to follow therapy notes. Rolando DAWN CM
--- NOTE | 2021-01-16 11:42 | PCM.PN.INT ---
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 Continue Decadron to complete 10 days. No Remdesivir given unclear onset 2. Complete 7 days of Levaquin therapy 3. Wean oxygen as tolerated 4. Consider using pillow for splinting to help with pulmonary toileting 5. Continue with diuresis as tolerated 6. Continue aggressive pulmonary toileting 7. Follow-up on recent sleep study results when available IMPRESSIONS: 1. Acute on chronic hypoxic respiratory failure secondary to COVID-19 and Enterobacter aerogenes pneumonia Patient did have moderately severe mixed ventilatory defect prior to onset of COVID-19. Patient does have a gram-negative in his sputum. Given his underlying lung disease and risk for complications, will start empirically on Levaquin therapy. Patient also appeared to be somewhat overloaded and has an elevated BNP on presentation. Agree with empiric diuresis. Patient is on Pulmicort at baseline, but this does not need to be continued given high dose Decadron. Patient did have a recent sleep study, but the results are not available. Initiation of AROLDO therapy once this is available would be recommended. Patient does have a positive sputum culture with susceptibility to Levaquin. Would recommend 7 days of antibiotic therapy. Patient can likely be discharged when he is able to tolerate ambulation on 6 L or less. 2. 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 Clinical suspicion for an element of congestive heart failure complicating presentation. Agree with empiric diuresis. Would caution against full anticoagulation given history of GI bleed and relative anemia. Patient's nonunion of the sternum will make use of vest therapy for pulmonary toileting unpleasant, but patient may be able to tolerate an Acapella. Patient is on apixaban at baseline, but this should likely be held given concerns for possible need for interventions. 3. Depression/hypertension/GERD/history of GI bleed/hyperlipidemia/osteoarthritis/obesity/CKD stage III Complicates care, management, recovery and prognosis. We will have to watch patient for signs and symptoms of delirium given IV steroids. Patient will also be at risk for bleeding and already has an element of anemia. Okay to continue with baseline medications from my perspective except for Eliquis, Pulmicort and allopurinol Subjective Subjective Patient appears subjectively improved compared to yesterday. Patient has been tolerating Airvo at decreased FiO2. Patient continues to have a cough, but states production has improved. Objective Data Objective Data Vital Signs: Vital Signs Temp Pulse Resp BP Pulse Ox 36.7 C 83 20 H 115/88 H 92 01/16/21 04:45 01/16/21 07:00 01/16/21 04:45 01/16/21 04:45 01/16/21 04:45 Oxygen Flow Rate (L/min) 55 Oxygen Delivery Method Airvo Weight: 127.3 kg Body Mass Index (BMI) 36.4 Intake & Output: Intake and Output for Last 24 Hours 01/14/21 01/15/21 01/16/21 23:59 23:59 23:59 Intake Total 0 / 0 600 / 1000 520 / 520 Output Total 800 / 800 1025 / 1550 1025 / 1025 Balance -800 / -800 -425 / -550 -505 / -505 Lab / Micro Data Result Diagrams: 01/16/21 05:35 01/16/21 05:35 Labs: Laboratory Results - last 24 hr 01/16/21 05:35: WBC 9.2, RBC 3.80 L, Hgb 11.1 L, Hct 36.6 L, MCV 96.3 H, MCH 29.2, MCHC 30.3 L, RDW Std Deviation 54.5 H, RDW Coeff of Thang 15.4 H, Plt Count 114 L, MPV 10.8, Immature Gran % (Auto) 1.400 H, Neut % (Auto) 87.3 H, Lymph % (Auto) 6.0 L, [place] % (Auto) 5.1, Eos % (Auto) 0.0, Baso % (Auto) 0.2, Absolute Neuts (auto) 8.0 H, Absolute Lymphs (auto) 0.55 L, Nucleated RBC % 0, Differential Comment SCANNED 01/16/21 05:35: Sodium 139, Potassium 4.6, Chloride 103, Carbon Dioxide 28.0, Anion Gap 8, BUN 60 H, Creatinine 1.49 H, Estim Creat Clear Calc 42.91, Est GFR (MDRD) Af Amer 58 L, Est GFR (MDRD) Non-Af 48 L, BUN/Creatinine Ratio 40.3 H, Glucose 157 H, Calcium 8.2 L Micro: Microbiology 01/14/21 11:55 Blood Culture (Wb) - Left Hand Blood Culture - Preliminary No growth in 48 hours. 01/14/21 10:55 Blood Culture (Wb) - Anticubital Right Blood Culture - Preliminary No growth in 48 hours. 01/14/21 17:30 Sputum, Expectorated/Coughed Gram Stain - Final 01/14/21 17:30 Sputum, Expectorated/Coughed Respiratory Culture - Preliminary Enterobacter aerogenes 01/14/21 16:00 Mucosa - Nasopharyngeal Respiratory Panel (PCR) - Final 01/14/21 16:00 Urine, Clean Catch Legionella Antigen - Final 01/14/21 16:00 Urine, Clean Catch Streptococcus pneumoniae Antigen (M - Final 01/14/21 10:55 Nasal Secretion SARS-CoV-2 Antigen (Rapid) - Final SARS-CoV-2 (COVID 19) Physical Exam Const alert, oriented x3 and no apparent distress Constitutional Narrative: On Airvo General Appearance: cooperative and well developed; Negative for uncooperative or combative Nutritional Appearance: obese HEENT normocephalic, head/scalp atraumatic and moist oral mucous membranes Eyes PERRL and EOMs intact bilaterally Neck full ROM and no lymphadenopathy Chest Chest Narrative: 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 Resp Resp Narrative: No conversational dyspnea Auscultation: rhonchi throughout and diminished lung sounds; Negative for rales or wheezes Percussion: Negative for dullness Cardio regular rate, regular rhythm, S1 normal heart sound, S2 normal heart sound, no murmurs, no rub and no gallops GI normal to inspection, nondistended, normoactive bowel sounds no CVA tenderness Extremity General Extremity: edema bilateral (2+) lower extremity; Negative for clubbing or cyanosis Skin no rashes or lesions noted Neuro oriented x3, CN's II-XII intact bilaterally, moves all extremities and no focal motor deficits Psych cooperative and affect normal Charges/Coding Visit Charges Inpatient E&M: 97697 Subs Hosp L3
--- NOTE | 2021-01-16 12:04 | PCM.PN.HOSP ---
Documented by User: Teo WELSH 01/16/21 12:16 Subjective Subjective Patient is an 85-year-old male comfortably resting in a chair, alert and orient x3. Patient reports improvement of shortness of breath from admission. Denies development of any new symptoms in the past 24 hours. Denies chest pain, palpitations, hemoptysis, fever, chills, N/V/D. Objective Data Objective Data Vital Signs: Vital Signs Temp Pulse Resp BP Pulse Ox 98.1 F 83 20 H 115/88 H 92 01/16/21 04:45 01/16/21 07:00 01/16/21 04:45 01/16/21 04:45 01/16/21 04:45 Oxygen Flow Rate (L/min) 55 Oxygen Delivery Method Airvo Weight: 280 lb 10.375 oz Body Mass Index (BMI) 36.4 Intake & Output: Intake and Output for Last 24 Hours 01/14/21 01/15/21 01/16/21 23:59 23:59 23:59 Intake Total 0 / 0 600 / 1000 520 / 520 Output Total 800 / 800 1025 / 1550 1025 / 1025 Balance -800 / -800 -425 / -550 -505 / -505 Lab / Micro Data Result Diagrams: 01/16/21 05:35 01/16/21 05:35 Labs: Laboratory Results - last 24 hr 01/16/21 05:35: WBC 9.2, RBC 3.80 L, Hgb 11.1 L, Hct 36.6 L, MCV 96.3 H, MCH 29.2, MCHC 30.3 L, RDW Std Deviation 54.5 H, RDW Coeff of Thang 15.4 H, Plt Count 114 L, MPV 10.8, Immature Gran % (Auto) 1.400 H, Neut % (Auto) 87.3 H, Lymph % (Auto) 6.0 L, [place] % (Auto) 5.1, Eos % (Auto) 0.0, Baso % (Auto) 0.2, Absolute Neuts (auto) 8.0 H, Absolute Lymphs (auto) 0.55 L, Nucleated RBC % 0, Differential Comment SCANNED 01/16/21 05:35: Sodium 139, Potassium 4.6, Chloride 103, Carbon Dioxide 28.0, Anion Gap 8, BUN 60 H, Creatinine 1.49 H, Estim Creat Clear Calc 42.91, Est GFR (MDRD) Af Amer 58 L, Est GFR (MDRD) Non-Af 48 L, BUN/Creatinine Ratio 40.3 H, Glucose 157 H, Calcium 8.2 L Micro: Microbiology 01/14/21 11:55 Blood Culture (Wb) - Left Hand Blood Culture - Preliminary No growth in 48 hours. 01/14/21 10:55 Blood Culture (Wb) - Anticubital Right Blood Culture - Preliminary No growth in 48 hours. 01/14/21 17:30 Sputum, Expectorated/Coughed Gram Stain - Final 01/14/21 17:30 Sputum, Expectorated/Coughed Respiratory Culture - Preliminary Enterobacter aerogenes 01/14/21 16:00 Mucosa - Nasopharyngeal Respiratory Panel (PCR) - Final 01/14/21 16:00 Urine, Clean Catch Legionella Antigen - Final 01/14/21 16:00 Urine, Clean Catch Streptococcus pneumoniae Antigen (M - Final 01/14/21 10:55 Nasal Secretion SARS-CoV-2 Antigen (Rapid) - Final SARS-CoV-2 (COVID 19) Physical Exam Const alert, oriented x3 and no apparent distress HEENT head/scalp atraumatic, moist oral mucous membranes and oropharynx normal Head and Scalp: normocephalic Eyes PERRL, EOMs intact bilaterally and conjunctivae normal Neck no lymphadenopathy, supple and no JVD Resp Resp Narrative: On airvo at an FiO2 of 48 Effort and Inspection: tachypneic and labored Auscultation: rhonchi and diminished lung sounds Cardio regular rate, regular rhythm, no murmurs and no JVD GI normal to inspection, nondistended, normoactive bowel sounds, soft to palpation and non-tender Extremity normal to inspection, full ROM and no clubbing, cyanosis or edema Skin no rashes or lesions noted, no wounds, skin turgor normal and no jaundice Neuro CN's II-XII intact bilaterally Psych affect normal Assessment & Plan Assessment/Plan (1) Acute and chronic respiratory failure with hypoxia: (2) COVID: PLAN: Day 3 Discharge planning: Patient to discharge home when medically ready, no home health care needs or additional therapies identified. 1) acute respiratory failure secondary to acute COVID-19 pneumonia Currently satting at 92% with an FiO2 of 48 on Airvo. Patient does endorse being fully vaccinated for COVID-19 in June and July. Remdesivir not initiated due to not knowing when patient symptoms began. Pulmonology consult ordered. Plan; remain admitted to PCU, continue incentive spirometry and scheduled duo nebs, continue 10 day course of dexamethasone, continue Mucinex. 7 day course of Levaquin initiated per pulmonology. 2) elevated troponin Likely demand secondary to #1. Will not trend. DVT prophylaxis - Lovenox Patient seen by Teo Barbosa PA-C, under the supervision of Dr. Mcdonald. Documented by User: Dr. Nakita Mcdonald MD 01/16/21 16:32 Objective Data Lab / Micro Data Result Diagrams: 01/16/21 05:35 01/16/21 05:35 Charges/Coding Addendum Addendum: This patient was seen in conjunction with BLAISE Lowe. I have independently interviewed and examined the patient and reviewed pertinent historical, laboratory, and other data. Please refer to BLAISE Lowe's note for his patient's presentation, findings, and recommendations. I have reviewed and his note and concur with his documentation Patient was seen and examined. He is on 12 L of oxygen. He denied any new complaints. Physical exam: General: Alert, Oriented x3, Cooperative, obese HEENT: Atraumatic Oral: Moist Mucosa Neck: Supple Lungs: Diminished Cardiovascular: HS I+II, regular, no murmurs Abdomen: Bowel Sounds Present, Soft, Non Tender Extremities: Bilateral leg edema +2-3 Skin: No rashes, No breakdown Neurological: Grossly intact Psych/Mental Status: Appropriate ASSESSMENT: 1. Acute on chronic hypoxic respiratory failure secondary to acute COVID-19 pneumonia 2. Elevated troponin 3. 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 Probable acute exacerbation of heart failure with preserved EF, EF 55% Plan: Continue with Levaquin Continue on high flow oxygen, Decadron Continue on Lasix IV Continue to encourage incentive spirometer, breathing treatments Visit Charges Inpatient E&M: 86610 Subs Hosp L2
--- NOTE | 2021-01-16 15:26 | CASEMGMT ---
Palliative screening tool completed for [facility]. Patient does not meets criteria for palliative consult at this time.
[2021-01-16] MEDS: Menthol/Lanolin/Calamine/Znox 113 GM Tube 1 APPLIC TOPICAL ×2 (17:40→22:07)
[2021-01-17] VITALS (20 sets, daily range): BP systolic 102–149; BP diastolic 50–82; PULSE 62–78; RESP 12–24; TEMP 36.6–36.8; O2SAT 90–98
[2021-01-17] MEDS: Ipratropium/Albuterol Sulfate 3 ML AMPUL.NEB INHALATION ×4 (01:45→19:36)
[2021-01-17] MEDS: levoFLOXacin 250 MG Tablet PO (04:50)
[2021-01-17] MEDS: Menthol/Lanolin/Calamine/Znox 113 GM Tube 1 APPLIC TOPICAL ×3 (04:50→20:45)
[2021-01-17 06:57] LABS: Absolute Lymphocyte Count 0.61 X10^3/uL (0.83-4.51); Absolute Neutrophil Count 5.3 X10^3/uL (2.0-7.7); Basophil# 0.05 X10^3/uL; Basophil% 0.7 % (0-1); Eosinophil# 0.01 X10^3/uL; Eosinophils% 0.1 % (0-5); Hematocrit 37.5 % (40-54); Hemoglobin 11.5 g/dL (13.0-16.5); Lymphocyte # 0.61 X10^3/ul (0.83-4.51); Mean Corp Hgb Conc 30.7 g/dL (32-36); Mean Corpuscular Hgb 29.3 pg (27.0-32.0); Mean Corpuscular Volume 95.7 fL (80-94); Mean Platelet Vol. 11.1 fl (6.2-12.0); Monocyte# 0.47 X10^3/uL; Monocyte% 6.9 % (0-10); NRBC Flagged by Analyzer 0 % (0-5); Neutrophil # 5.29 X10^3/uL (2.7-7.7); Neutrophil % 78.3 % (47-70); Platelet Count 124 K/mm3 (150-450); RBC Distribution Width CV 15.4 % (11.6-14.6); Red Blood Count 3.92 M/mm3 (4.6-6.2); White Blood Count 6.8 K/mm3 (4.4-11.0)
[2021-01-17 07:33] LABS: Anion Gap 6 (5-15); BUN 58 mg/dL (7-18); BUN/Creat Ratio 40.8 RATIO (10-20); Calcium,Total 8.3 mg/dL (8.5-10.1); Chloride 101 mmol/L (98-107); Creatinine, Serum 1.42 mg/dL (0.70-1.30); EST Glomerular Filtration Rate 51 mL/min (>60); Est Glom Filt Rate - Afr Amer 61 mL/min (>60); Estimated Creatinine Clearance 45.02 ml/min; Glucose 142 mg/dL (74-106); Potassium 4.3 mmol/L (3.5-5.1); Sodium Level 138 mmol/L (136-145)
--- NOTE | 2021-01-17 08:28 | PCM.PN.INT ---
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 Continue Decadron to complete 10 days. No Remdesivir given unclear onset 2. Complete 7 days of Levaquin therapy 3. Wean oxygen as tolerated 4. Consider using pillow for splinting to help with pulmonary toileting 5. Continue with diuresis as tolerated 6. Continue aggressive pulmonary toileting 7. Initiate BiPAP 20/13 centimeters of water with 5 L bleed IMPRESSIONS: 1. Acute on chronic hypoxic respiratory failure secondary to COVID-19 and Enterobacter aerogenes pneumonia Patient did have moderately severe mixed ventilatory defect prior to onset of COVID-19. Patient does have a gram-negative in his sputum. Given his underlying lung disease and risk for complications, will start empirically on Levaquin therapy. Patient also appeared to be somewhat overloaded and has an elevated BNP on presentation. Agree with empiric diuresis. Patient is on Pulmicort at baseline, but this does not need to be continued given high dose Decadron. Patient did have a recent sleep study, but the results are not available. Sleep study has resulted. Patient will be placed on BiPAP.. Patient does have a positive sputum culture with susceptibility to Levaquin. Would recommend 7 days of antibiotic therapy. Patient can likely be discharged when he is able to tolerate ambulation on 6 L or less. 2. 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 Clinical suspicion for an element of congestive heart failure complicating presentation. Agree with empiric diuresis. Would caution against full anticoagulation given history of GI bleed and relative anemia. Patient's nonunion of the sternum will make use of vest therapy for pulmonary toileting unpleasant, but patient may be able to tolerate an Acapella. Patient is on apixaban at baseline, but this should likely be held given concerns for possible need for interventions. 3. Depression/hypertension/GERD/history of GI bleed/hyperlipidemia/osteoarthritis/obesity/CKD stage III Complicates care, management, recovery and prognosis. We will have to watch patient for signs and symptoms of delirium given IV steroids. Okay to reinitiate baseline meds. Subjective Subjective Patient did well overnight. No acute issues were reported. Patient has been moved to nasal cannula this morning and is tolerating well. Patient is frustrated that he likely will not be able to go home today. Patient reports his cough is having less production Objective Data Objective Data Outpatient sleep study shows an AHI of over 92 with recommendations to initiate BiPAP 20/13 centimeters of water with 5 L bleed Vital Signs: Vital Signs Temp Pulse Resp BP Pulse Ox 36.7 C 63 16 122/55 H 98 01/17/21 07:41 01/17/21 07:43 01/17/21 07:41 01/17/21 07:41 01/17/21 07:41 Oxygen Flow Rate (L/min) 50 Oxygen Delivery Method Airvo Weight: 126.3 kg Body Mass Index (BMI) 36.4 Intake & Output: Intake and Output for Last 24 Hours 01/15/21 01/16/21 01/17/21 23:59 23:59 23:59 Intake Total 600 / 1000 1280 / 1520 480 / 480 Output Total 1025 / 1550 2825 / 3150 1225 / 1225 Balance -425 / -550 -1545 / -1630 -745 / -745 Lab / Micro Data Result Diagrams: 01/17/21 06:36 01/17/21 06:36 Labs: Laboratory Results - last 24 hr 01/17/21 06:36: WBC 6.8, RBC 3.92 L, Hgb 11.5 L, Hct 37.5 L, MCV 95.7 H, MCH 29.3, MCHC 30.7 L, RDW Std Deviation 54.0 H, RDW Coeff of Thang 15.4 H, Plt Count 124 L, MPV 11.1, Immature Gran % (Auto) 5.000 H, Neut % (Auto) 78.3 H, Lymph % (Auto) 9.0 L, [place] % (Auto) 6.9, Eos % (Auto) 0.1, Baso % (Auto) 0.7, Absolute Neuts (auto) 5.3, Absolute Lymphs (auto) 0.61 L, Nucleated RBC % 0 01/17/21 06:36: Sodium 138, Potassium 4.3, Chloride 101, Carbon Dioxide 31.0, Anion Gap 6, BUN 58 H, Creatinine 1.42 H, Estim Creat Clear Calc 45.02, Est GFR (MDRD) Af Amer 61, Est GFR (MDRD) Non-Af 51 L, BUN/Creatinine Ratio 40.8 H, Glucose 142 H, Calcium 8.3 L Micro: Microbiology 01/14/21 17:30 Sputum, Expectorated/Coughed Gram Stain - Final 01/14/21 17:30 Sputum, Expectorated/Coughed Respiratory Culture - Final Enterobacter aerogenes Moraxella([place]el[place].)Catarrhalis 01/14/21 11:55 Blood Culture (Wb) - Left Hand Blood Culture - Preliminary No growth in 48 hours. 01/14/21 10:55 Blood Culture (Wb) - Anticubital Right Blood Culture - Preliminary No growth in 48 hours. 01/14/21 16:00 Mucosa - Nasopharyngeal Respiratory Panel (PCR) - Final 01/14/21 16:00 Urine, Clean Catch Legionella Antigen - Final 01/14/21 16:00 Urine, Clean Catch Streptococcus pneumoniae Antigen (M - Final 01/14/21 10:55 Nasal Secretion SARS-CoV-2 Antigen (Rapid) - Final SARS-CoV-2 (COVID 19) Physical Exam Const alert, oriented x3 and no apparent distress Constitutional Narrative: On nasal cannula General Appearance: cooperative and well developed; Negative for uncooperative or combative Nutritional Appearance: obese HEENT normocephalic, head/scalp atraumatic and moist oral mucous membranes Eyes PERRL and EOMs intact bilaterally Neck full ROM and no lymphadenopathy Chest Chest Narrative: 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 Resp Resp Narrative: No conversational dyspnea Auscultation: rhonchi throughout and diminished lung sounds; Negative for rales or wheezes Percussion: Negative for dullness Cardio regular rate, regular rhythm, S1 normal heart sound, S2 normal heart sound, no murmurs, no rub and no gallops GI normal to inspection, nondistended, normoactive bowel sounds no CVA tenderness Extremity General Extremity: edema bilateral (2+) lower extremity; Negative for clubbing or cyanosis Skin no rashes or lesions noted Neuro oriented x3, CN's II-XII intact bilaterally, moves all extremities and no focal motor deficits Psych cooperative and affect normal Charges/Coding Visit Charges Inpatient E&M: 65079 Subs Hosp L3
[2021-01-17] MEDS: guaiFENesin 1,200 MG Tablet 1200 MG PO ×2 (10:16→20:45)
[2021-01-17] MEDS: dexAMETHasone 10 MG/ML Vial 6 MG IV (10:16)
[2021-01-17] MEDS: Furosemide 40 MG/4 ML Vial IV (10:16)
[2021-01-17] MEDS: Enoxaparin 30 MG/0.3 ML Syringe SC ×2 (10:16→20:45)
--- NOTE | 2021-01-17 11:00 | PCM.PN.HOSP ---
Documented by User: Teo WELSH 01/17/21 11:04 Subjective Subjective Patient is an 85-year-old male comfortably resting in bed, alert and orient x3. Patient reports improvement in his shortness of breath from yesterday and is been taken off of Airvo and been placed on nasal cannula. Denies any development of any new symptoms in the past 24 hours. Denies chest pain, shortness of breath, palpitations, hemoptysis, sputum production, fever, chills, N/V/D. Objective Data Objective Data Vital Signs: Vital Signs Temp Pulse Resp BP Pulse Ox 98.1 F 66 18 102/50 L 93 01/17/21 10:11 01/17/21 10:11 01/17/21 10:11 01/17/21 10:11 01/17/21 10:11 Oxygen Flow Rate (L/min) 11 Oxygen Delivery Method Nasal Cannula Weight: 278 lb 7.101 oz Body Mass Index (BMI) 36.4 Intake & Output: Intake and Output for Last 24 Hours 01/15/21 01/16/21 01/17/21 23:59 23:59 23:59 Intake Total 600 / 1000 1280 / 1520 480 / 480 Output Total 1025 / 1550 2825 / 3150 1225 / 1225 Balance -425 / -550 -1545 / -1630 -745 / -745 Lab / Micro Data Result Diagrams: 01/17/21 06:36 01/17/21 06:36 Labs: Laboratory Results - last 24 hr 01/17/21 06:36: WBC 6.8, RBC 3.92 L, Hgb 11.5 L, Hct 37.5 L, MCV 95.7 H, MCH 29.3, MCHC 30.7 L, RDW Std Deviation 54.0 H, RDW Coeff of Thang 15.4 H, Plt Count 124 L, MPV 11.1, Immature Gran % (Auto) 5.000 H, Neut % (Auto) 78.3 H, Lymph % (Auto) 9.0 L, [place] % (Auto) 6.9, Eos % (Auto) 0.1, Baso % (Auto) 0.7, Absolute Neuts (auto) 5.3, Absolute Lymphs (auto) 0.61 L, Nucleated RBC % 0 01/17/21 06:36: Sodium 138, Potassium 4.3, Chloride 101, Carbon Dioxide 31.0, Anion Gap 6, BUN 58 H, Creatinine 1.42 H, Estim Creat Clear Calc 45.02, Est GFR (MDRD) Af Amer 61, Est GFR (MDRD) Non-Af 51 L, BUN/Creatinine Ratio 40.8 H, Glucose 142 H, Calcium 8.3 L Micro: Microbiology 01/14/21 17:30 Sputum, Expectorated/Coughed Gram Stain - Final 01/14/21 17:30 Sputum, Expectorated/Coughed Respiratory Culture - Final Enterobacter aerogenes Moraxella([place]armel[place].)Catarrhalis 01/14/21 11:55 Blood Culture (Wb) - Left Hand Blood Culture - Preliminary No growth in 48 hours. 01/14/21 10:55 Blood Culture (Wb) - Anticubital Right Blood Culture - Preliminary No growth in 48 hours. 01/14/21 16:00 Mucosa - Nasopharyngeal Respiratory Panel (PCR) - Final 01/14/21 16:00 Urine, Clean Catch Legionella Antigen - Final 01/14/21 16:00 Urine, Clean Catch Streptococcus pneumoniae Antigen (M - Final 01/14/21 10:55 Nasal Secretion SARS-CoV-2 Antigen (Rapid) - Final SARS-CoV-2 (COVID 19) Physical Exam Const alert, oriented x3 and no apparent distress HEENT head/scalp atraumatic and moist oral mucous membranes Head and Scalp: normocephalic Eyes PERRL, EOMs intact bilaterally and conjunctivae normal Neck no lymphadenopathy, supple and no JVD Resp Resp Narrative: Auscultation improved from yesterday as lung sounds no longer appear diminished, still with rhonchi. Effort and Inspection: labored Auscultation: rhonchi Cardio regular rate, regular rhythm, no murmurs and no JVD GI normal to inspection, nondistended, normoactive bowel sounds, soft to palpation and non-tender Extremity normal to inspection, full ROM and no clubbing, cyanosis or edema Skin no rashes or lesions noted, no wounds, skin turgor normal and no jaundice Neuro CN's II-XII intact bilaterally Psych affect normal Assessment & Plan Assessment/Plan (1) Acute and chronic respiratory failure with hypoxia: (2) COVID: PLAN: Day 4 Discharge planning: Anticipate discharge home tomorrow 01/18, no home health care needs or additional therapies identified. 1) acute respiratory failure secondary to acute COVID-19 pneumonia Currently satting 95% on 10 L via nasal cannula, transition off of Airvo. Patient does endorse being fully vaccinated for COVID-19 in June and July. Remdesivir not initiated due to not knowing when patient symptoms began. Pulmonology consult ordered. Plan; remain admitted to PCU, continue incentive spirometry and scheduled duo nebs, continue 10 day course of dexamethasone, continue Mucinex. 7 day course of Levaquin initiated per pulmonology. 2) elevated troponin Likely demand secondary to #1. Will not trend. DVT prophylaxis - Lovenox Patient seen by Teo Barbosa PA-C, under the supervision of Dr. Mcdonald. Documented by User: Dr. Nakita Mcdonald MD 01/17/21 14:46 Objective Data Lab / Micro Data Result Diagrams: 01/17/21 06:36 01/17/21 06:36 Charges/Coding Addendum Addendum: This patient was seen in conjunction with BLAISE Lowe. I have independently interviewed and examined the patient and reviewed pertinent historical, laboratory, and other data. Please refer to BLAISE Lowe's note for his patient's presentation, findings, and recommendations. I have reviewed and his note and concur with his documentation Patient was seen and examined. He is on 9 L of oxygen. He has been using his incentive spirometer Physical exam: General: Alert, Oriented x3, Cooperative, obese HEENT: Atraumatic Oral: Moist Mucosa Neck: Supple Lungs: Diminished Cardiovascular: HS I+II, regular, no murmurs Abdomen: Bowel Sounds Present, Soft, Non Tender Extremities: Bilateral leg edema +1 Skin: No rashes, No breakdown Neurological: Grossly intact Psych/Mental Status: Appropriate ASSESSMENT: 1. Acute on chronic hypoxic respiratory failure secondary to acute COVID-19 pneumonia 2. Elevated troponin 3. Acute Enterobacter/Moraxella pneumonia 4. Probable acute exacerbation of heart failure with preserved EF, EF 55% Plan: Continue with Levaquin; aiming for 1 week total treatment Continue on high flow oxygen, Decadron Change to oral Lasix Continue to encourage incentive spirometer, breathing treatments Visit Charges Inpatient E&M: 20083 Subs Hosp L2
[2021-01-17] MEDS: Furosemide 40 MG Tablet PO (17:56)
[2021-01-18] VITALS (15 sets, daily range): BP systolic 110–134; BP diastolic 56–90; PULSE 61–67; RESP 12–24; TEMP 36.7–36.9; O2SAT 81–95
[2021-01-18] MEDS: Menthol/Lanolin/Calamine/Znox 113 GM Tube 1 APPLIC TOPICAL ×2 (05:52→13:21)
[2021-01-18] MEDS: levoFLOXacin 250 MG Tablet PO (05:52)
[2021-01-18 06:37] LABS: Hematocrit 38.6 % (40-54); Hemoglobin 11.8 g/dL (13.0-16.5); Mean Corp Hgb Conc 30.6 g/dL (32-36); Mean Corpuscular Hgb 29.5 pg (27.0-32.0); Mean Corpuscular Volume 96.5 fL (80-94); Mean Platelet Vol. 11.1 fl (6.2-12.0); POSITIVE COUNT YES; POSITIVE MORPHOLOGY YES; Platelet Count 128 K/mm3 (150-450); RBC Distribution Width CV 15.4 % (11.6-14.6); RBC Distribution Width SD 55.1 fl (35.1-43.9); White Blood Count 6.4 K/mm3 (4.4-11.0)
[2021-01-18 06:42] LABS: Differential Indicated MANUAL DIFF
[2021-01-18 07:10] LABS: Anion Gap 2 (5-15); BUN 67 mg/dL (7-18); BUN/Creat Ratio 44.4 RATIO (10-20); Calcium,Total 8.6 mg/dL (8.5-10.1); Chloride 104 mmol/L (98-107); Creatinine, Serum 1.51 mg/dL (0.70-1.30); EST Glomerular Filtration Rate 47 mL/min (>60); Est Glom Filt Rate - Afr Amer 57 mL/min (>60); Estimated Creatinine Clearance 42.34 ml/min; Glucose 164 mg/dL (74-106); Potassium 4.7 mmol/L (3.5-5.1); Sodium Level 140 mmol/L (136-145)
[2021-01-18] MEDS: Ipratropium/Albuterol Sulfate 3 ML AMPUL.NEB INHALATION ×2 (07:36→13:43)
[2021-01-18 07:38] LABS: Lymphocyte 13 % (19-41); Metamyelocyte 4 % (0-1); Monocyte 1 % (0-10); Myelocyte 2 % (0-0); Neutrophil-Band 5 % (0-5); Neutrophil-Segmented 75 % (47-70); Total Cells Counted 100 (MANUAL DIFF)
[2021-01-18 07:45] LABS: Anisocytosis 1+; Platelet Estimate SLT DEC (ADEQ); Red Cell Morphology N CHROM NORMAL (NORM C&C)
[2021-01-18 07:46] LABS: Absolute Neutrophil Count 8.7 X10^3/uL (2.0-7.7); Neutrophil # 8.68 X10^3/uL (2.7-7.7)
[2021-01-18 07:47] LABS: Absolute Lymphocyte Count 1.41 X10^3/uL (0.83-4.51); Lymphocyte # 1.41 X10^3/ul (0.83-4.51)
--- NOTE | 2021-01-18 08:27 | PN.CC_ITS ---
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 Continue Decadron to complete 10 days. No Remdesivir given unclear onset 2. Complete 7 days of Levaquin therapy 3. Wean oxygen as tolerated 4. Consider using pillow for splinting to help with pulmonary toileting 5. Continue with diuresis as tolerated 6. Continue aggressive pulmonary toileting 7. Initiate BiPAP 20/13 centimeters of water with 5 L bleed 8. Walking oximetry. If able to tolerate ambulation on 6 L or less, okay to discharge 9. If discharged, complete Decadron and Levaquin as ordered. Follow-up in our office in 4 to 6 weeks IMPRESSIONS: 1. Acute on chronic hypoxic respiratory failure secondary to COVID-19 and Enterobacter aerogenes pneumonia Patient did have moderately severe mixed ventilatory defect prior to onset of COVID-19. Patient does have a gram-negative in his sputum. Given his underlying lung disease and risk for complications, will start empirically on Levaquin therapy. Patient also appeared to be somewhat overloaded and has an elevated BNP on presentation. Agree with empiric diuresis. Patient is on Pulmicort at baseline, but this does not need to be continued given high dose Decadron. Patient did have a recent sleep study, but the results are not available. Sleep study has resulted. Patient will be placed on BiPAP.. Patient does have a positive sputum culture with susceptibility to Levaquin. Would recommend 7 days of antibiotic therapy. Patient can likely be discharged when he is able to tolerate ambulation on 6 L or less. 2. 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 Clinical suspicion for an element of congestive heart failure complicating presentation. Agree with empiric diuresis. Would caution against full anticoagulation given history of GI bleed and relative anemia. Patient's nonunion of the sternum will make use of vest therapy for pulmonary toileting unpleasant, but patient may be able to tolerate an Acapella. Patient is on apixaban at baseline, but this should likely be held given concerns for possible need for interventions. 3. Depression/hypertension/GERD/history of GI bleed/hyperlipidemia/osteoarthritis/obesity/CKD stage III Complicates care, management, recovery and prognosis. We will have to watch patient for signs and symptoms of delirium given IV steroids. Okay to reinitiate baseline meds. Subjective Subjective Patient did well overnight. Patient states he tolerated BiPAP well and feels like he got good rest. Patient continues to request discharge [facility] and was able to make it to nasal cannula yesterday before being on BiPAP. Patient denies any chest pain, nominal pain, nausea or vomiting. Objective Data Objective Data Vital Signs: Vital Signs Temp Pulse Resp BP Pulse Ox 36.9 C 66 20 H 114/72 93 01/18/21 07:58 01/18/21 07:58 01/18/21 07:58 01/18/21 07:58 01/18/21 07:58 Oxygen Flow Rate (L/min) 7 Oxygen Delivery Method Nasal Cannula Weight: 126.1 kg Body Mass Index (BMI) 36.4 Intake & Output: Intake and Output for Last 24 Hours 01/16/21 01/17/21 01/18/21 23:59 23:59 23:59 Intake Total 1280 / 1520 1520 / 1520 Output Total 2825 / 3150 2525 / 2525 300 / 300 Balance -1545 / -1630 -1005 / -1005 -300 / -300 Lab / Micro Data Result Diagrams: 01/18/21 06:17 01/18/21 06:17 Labs: Laboratory Results - last 24 hr 01/18/21 06:17: WBC 6.4, RBC 4.00 L, Hgb 11.8 L, Hct 38.6 L, MCV 96.5 H, MCH 29.5, MCHC 30.6 L, RDW Std Deviation 55.1 H, RDW Coeff of Thang 15.4 H, Plt Count 128 L, MPV 11.1, Neut % (Auto) Not Reportable, Absolute Neuts (auto) 8.7 H, Absolute Lymphs (auto) 1.41, Total Counted 100, Neutrophils % (Manual) 75 H, Band Neutrophils % 5, Lymphocytes % (Manual) 13 L, Monocytes % (Manual) 1, Metamyelocytes % 4 H, Myelocytes % 2 H, Diff Path Review May foll, Platelet Estimate SLT DEC, RBC Morphology N CHROM, Anisocytosis 1+ 01/18/21 06:17: Sodium 140, Potassium 4.7, Chloride 104, Carbon Dioxide 34.0 H, Anion Gap 2 L, BUN 67 H, Creatinine 1.51 H, Estim Creat Clear Calc 42.34, Est GFR (MDRD) Af Amer 57 L, Est GFR (MDRD) Non-Af 47 L, BUN/Creatinine Ratio 44.4 H , Glucose 164 H, Calcium 8.6 Micro: Microbiology 01/14/21 17:30 Sputum, Expectorated/Coughed Gram Stain - Final 01/14/21 17:30 Sputum, Expectorated/Coughed Respiratory Culture - Final Enterobacter aerogenes Moraxella([place].)Catarrhalis 01/14/21 11:55 Blood Culture (Wb) - Left Hand Blood Culture - Preliminary No growth in 48 hours. 01/14/21 10:55 Blood Culture (Wb) - Anticubital Right Blood Culture - Preliminary No growth in 48 hours. 01/14/21 16:00 Mucosa - Nasopharyngeal Respiratory Panel (PCR) - Final 01/14/21 16:00 Urine, Clean Catch Legionella Antigen - Final 01/14/21 16:00 Urine, Clean Catch Streptococcus pneumoniae Antigen (M - Final 01/14/21 10:55 Nasal Secretion SARS-CoV-2 Antigen (Rapid) - Final SARS-CoV-2 (COVID 19) Physical Exam Const alert, oriented x3 and no apparent distress Constitutional Narrative: Initially on BiPAP, but transition to nasal cannula by myself General Appearance: cooperative and well developed; Negative for uncooperative or combative Nutritional Appearance: obese HEENT normocephalic, head/scalp atraumatic and moist oral mucous membranes HEENT Narrative: Significant scleral injection noted Eyes PERRL and EOMs intact bilaterally Neck full ROM and no lymphadenopathy Chest Chest Narrative: 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 Resp Resp Narrative: No conversational dyspnea Auscultation: diminished lung sounds; Negative for rales, rhonchi or wheezes Percussion: Negative for dullness Cardio regular rate, regular rhythm, S1 normal heart sound, S2 normal heart sound, no murmurs, no rub and no gallops GI normal to inspection, nondistended, normoactive bowel sounds no CVA tenderness Extremity General Extremity: edema bilateral (2+) lower extremity; Negative for clubbing or cyanosis Skin no rashes or lesions noted Neuro oriented x3, CN's II-XII intact bilaterally, moves all extremities and no focal motor deficits Psych cooperative and affect normal Charges/Coding Visit Charges Inpatient E&M: 93176 Subs Hosp L2
[2021-01-18] MEDS: dexAMETHasone 4 MG Tablet 6 MG PO (09:15)
[2021-01-18] MEDS: guaiFENesin 1,200 MG Tablet 1200 MG PO (09:15)
[2021-01-18] MEDS: Furosemide 40 MG Tablet PO (09:16)
[2021-01-18] MEDS: Enoxaparin 30 MG/0.3 ML Syringe SC (09:16)
--- NOTE | 2021-01-18 11:07 | DCINST_ITS ---
Discharge Instructions Diet Discharge Diet: No restrictions Activity Discharge Activity: Return to Normal Activity Weight Bearing Status: Weight bearing as tolerated Dressing / Incision Call your doctor if you observe: Fever of 101 or Higher, Numbness or Tingling, Shortness of breath, Dizziness, Chest pain, Increased palpitations (irregular heartbeat) and Calf discomfort Follow Up Care Please Follow Up With: Primary care provider When: Within the next two weeks. Test Results: Test results from this visit will be discussed in further detail at your follow-up appointment, if applicable. Discharge Plan Admission Admit Date/Time: 01/14/21 12:22 Primary Reason for Your Visit: COVID 19 Infection Attending Provider: Nakita Mcdonald Primary Care Provider: Alexandro Lovell Consulting Providers: Demetrius Song ; Frank Aj ; Zenobia Raya FRONT END LOADER DRIVER Instructions Additional Instructions / Restrictions: You are required to quarantine for 20 days since the beginning of your symptoms. Your quarantine ends on January 21, 2021. Discharge Orders/Prescriptions Prescriptions: New dexamethasone 6 mg tablet 6 mg PO DAILY Qty: 7 RF: 0 levofloxacin 250 mg tablet 250 mg PO DAILY Qty: 4 RF: 0 Continued allopurinol 300 mg tablet 300 mg PO DAILY RF: 0 meclizine 12.5 mg tablet 12.5 mg PO PRN PRN (Reason: Vertigo) RF: 0 pantoprazole 40 mg tablet,delayed release (DR/EC) 40 mg PO DAILY RF: 0 furosemide 20 mg tablet 40 mg PO DAILY RF: 0 rosuvastatin 10 mg tablet 10 mg PO QHS RF: 0 Eliquis 5 mg tablet 2.5 mg PO BID Qty: 180 RF: 3 levothyroxine 125 MCG tablet 125 mcg PO DAILY RF: 0 acetaminophen 500 MG tablet 1,000 mg PO Q6H PRN (Reason: Mild Pain (1-07/23)) RF: 0 dutasteride 0.5 MG capsule 0.5 mg PO DAILY RF: 0 albuterol sulfate 90 mcg/actuation HFA aerosol inhaler 2 puff inhalation Q4H PRN (Reason: shortness of breath or wheezing) Qty: 6.7 RF: 0 ipratropium-albuterol 0.5 mg-3 mg(2.5 mg base)/3 mL solution for nebulization 3 ml inhalation Q4H RF: 0 aspirin 81 mg tablet,delayed release (DR/EC) See Rx Instructions .ROUTE .COMPLEX RF: 0 tamsulosin 0.4 MG capsule 0.4 mg PO DAILY@1730 RF: 0 budesonide 0.5 mg/2 mL suspension for nebulization 0.5 mg inhalation BID RF: 0 Mucus Relief ER 1,200 mg tablet extended release 12hr 1,200 mg PO BID RF: 0 Referrals / Follow Up: Demetrius Song MD [STAFF PHYSICIAN] - See Referral Note (Follow up with the Human Resources Compliance Manager in 4-6 weeks. ) Alexandro Lovell MD [Primary Care Provider] - Within 2 Weeks (See your Doctor after your 20 day quarantine, which ends on January 21, 2021. ) Disposition Disposition (needs filled in before D/C Order can be placed): Home, Self Care
--- NOTE | 2021-01-18 13:28 | DS.PCM_ITS ---
Documented by User: Teo WELSH 01/18/21 13:42 Providers Date of Admission: 01/14/21 Primary Care Physician: Dr. Alexandro Lovell MD Consultations 01/14/21 14:22 Consult: Compounding And Finishing Supervisor / Pulmonary Medicine Routine Consulting Provider: Pulmonary Medicine [facility] [place] Reason for Consult: Covid-19 EMERGENT Consult: No MD Notified: Yes Date Notified: 01/14/21 Time Notified: 14:38 Method of Notification: Text Reason For Visit: ACUTE RESP FAILURE/COVID-19 Diagnosis Discharge Diagnosis (1) Acute and chronic respiratory failure with hypoxia: Status: Chronic Code(s): J96.21 - Acute and chronic respiratory failure with hypoxia (2) COVID: Status: Acute Code(s): U07.1 - COVID-19 (3) AROLDO (obstructive sleep apnea): Status: Acute Code(s): G47.33 - Obstructive sleep apnea (adult) (pediatric) (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: Status: Acute Code(s): R94.2 - Abnormal results of pulmonary function studies (5) Sick sinus syndrome: Status: Chronic Code(s): I49.5 - Sick sinus syndrome (6) CKD (chronic kidney disease) stage 3, GFR 30-59 ml/min: Status: Chronic Code(s): N18.3 - Chronic kidney disease, stage 3 (moderate) Medications at Discharge Home Medications levothyroxine 125 mcg PO DAILY 03/28/18 acetaminophen 1,000 mg PO Q6H PRN tab 07/25/18 allopurinol 300 mg tablet 300 mg PO DAILY 07/27/18 pantoprazole 40 mg tablet,delayed release 40 mg PO DAILY 08/16/18 meclizine 12.5 mg tablet 12.5 mg PO PRN PRN 08/24/19 rosuvastatin 10 mg tablet 10 mg PO QHS tab 02/11/20 dutasteride 0.5 mg PO DAILY 02/18/20 apixaban 5 mg tablet 2.5 mg PO BID #180 tab 03/06/20 furosemide 20 mg tablet 40 mg PO DAILY tab 04/24/20 albuterol sulfate 2 puff INHALATION Q4H PRN #6.7 g 11/25/20 Mucus Relief ER 1,200 mg PO BID 01/14/21 aspirin See Rx Instructions .ROUTE .COMPLEX 01/14/21 budesonide 0.5 mg INHALATION BID 01/14/21 ipratropium-albuterol 3 ml INHALATION Q4H 01/14/21 tamsulosin 0.4 mg PO DAILY@1730 01/14/21 dexamethasone 6 mg PO DAILY #7 tab 01/18/21 dexamethasone 6 mg tablet 6 mg PO DAILY #7 tab 01/18/21 furosemide [Lasix] 40 mg PO BID #60 tab 01/18/21 levofloxacin 250 mg PO DAILY #4 tab 01/18/21 levofloxacin 250 mg tablet 250 mg PO DAILY #4 tab 01/18/21 Hospital Course Summary of Care Provided Minutes Spent on Discharge: 35 Hospital Course: Disposition: Patient to discharge home, no home health care needs or additional therapies identified. 1) acute respiratory failure secondary to acute COVID-19 pneumonia Patient satting 92% on 6 L at rest and 88% with ambulation. Patient has steadily improved each day during admission, and anticipate that he will continue to with resting at home. Patient does endorse being fully vaccinated for COVID-19 in June and July. Remdesivir not initiated due to not knowing when patient symptoms began. Plan; discharge home, patient to quarantine till January 21, 2021 which will complete a 20-day quarantine since onset of symptoms, continue dexamethasone to complete 10 day course, continue Levaquin to complete a 7-day course, follow-up with Dr. Song in 4 to 6 weeks for outpatient pulmonology evaluation. 2) elevated troponin Likely demand secondary to #1. Will not trend. Patient seen by Teo Barbosa PA-C, under the supervision of Dr. Mcdonald. Physical Exam Narrative Patient is an 85-year-old male comfortably resting in bed, alert and oriented x3. Patient reports significant improvement in his shortness of breath and cou gh from admission. Patient reports feeling strong enough to return home. Denies chest pain, palpitations, hemoptysis, fever, chills, N/V/D. Const alert, oriented x3 and no apparent distress HEENT normocephalic, head/scalp atraumatic and hearing grossly normal bilaterally Eyes PERRL, EOMs intact bilaterally and conjunctivae normal Neck no lymphadenopathy, supple and no JVD Resp normal respiratory effort and normal air movement Resp Narrative: Patient still has diminished lung sounds, although these have improved markedly from admission. Ambulatory pulse ox on 6 L was 88%. Auscultation: diminished lung sounds Cardio regular rate, regular rhythm, no murmurs and no JVD GI normal to inspection, nondistended, normoactive bowel sounds, soft to palpation and non-tender Extremity normal to inspection, full ROM and no clubbing, cyanosis or edema Skin no rashes or lesions noted, no wounds and skin turgor normal Neuro CN's II-XII intact bilaterally Psych affect normal Weight / BMI Weight Weight: 278 lb 0.046 oz Body Mass Index (BMI) 36.4 ABG / Lab / Microbiology Data Result Diagrams: 01/18/21 06:17 01/18/21 06:17 Laboratory: Laboratory Results - last 24 hr 01/18/21 06:17: WBC 6.4, RBC 4.00 L, Hgb 11.8 L, Hct 38.6 L, MCV 96.5 H, MCH 29.5, MCHC 30.6 L, RDW Std Deviation 55.1 H, RDW Coeff of Thang 15.4 H, Plt Count 128 L, MPV 11.1, Neut % (Auto) Not Reportable, Absolute Neuts (auto) 8.7 H, Absolute Lymphs (auto) 1.41, Total Counted 100, Neutrophils % (Manual) 75 H, Band Neutrophils % 5, Lymphocytes % (Manual) 13 L, Monocytes % (Manual) 1, Metamyelocytes % 4 H, Myelocytes % 2 H, Diff Path Review September, Platelet Estimate SLT DEC, RBC Morphology N CHROM, Anisocytosis 1+ 01/18/21 06:17: Sodium 140, Potassium 4.7, Chloride 104, Carbon Dioxide 34.0 H, Anion Gap 2 L, BUN 67 H, Creatinine 1.51 H, Estim Creat Clear Calc 42.34, Est GFR (MDRD) Af Amer 57 L, Est GFR (MDRD) Non-Af 47 L, BUN/Creatinine Ratio 44.4 H , Glucose 164 H, Calcium 8.6 Microbiology: Microbiology 01/14/21 17:30 Sputum, Expectorated/Coughed Gram Stain - Final 01/14/21 17:30 Sputum, Expectorated/Coughed Respiratory Culture - Final Enterobacter aerogenes Moraxella(Carmelina.)Catarrhalis 01/14/21 11:55 Blood Culture (Wb) - Left Hand Blood Culture - Preliminary No growth in 48 hours. 01/14/21 10:55 Blood Culture (Wb) - Anticubital Right Blood Culture - Preliminary No growth in 48 hours. 01/14/21 16:00 Mucosa - Nasopharyngeal Respiratory Panel (PCR) - Final 01/14/21 16:00 Urine, Clean Catch Legionella Antigen - Final 01/14/21 16:00 Urine, Clean Catch Streptococcus pneumoniae Antigen (M - Final 01/14/21 10:55 Nasal Secretion SARS-CoV-2 Antigen (Rapid) - Final SARS-CoV-2 (COVID 19) D/C Instructions Discharge Diet: No restrictions Weight Bearing Status: Weight bearing as tolerated Call your doctor if you observe: Fever of 101 or Higher, Numbness or Tingling, Shortness of breath, Dizziness, Chest pain, Increased palpitations (irregular heartbeat) and Calf discomfort Please Follow Up With: Primary care provider When: Within the next two weeks. Meaningful Use Info Meaningful Use Diagnoses (Choose all that apply): None applicable Discharge Plan Admission Admit Date/Time: 01/14/21 12:22 Primary Reason for Your Visit: COVID 19 Infection Attending Provider: Nakita Mcdonald Primary Care Provider: Alexandro Lovell Consulting Providers: Demetrius Song ; Frank Aj ; Zenobia Raya ASSEMBLYMAN OR WOMAN Instructions Additional Instructions / Restrictions: You are required to quarantine for 20 days since the beginning of your symptoms. Your quarantine ends on January 21, 2021. Discharge Orders/Prescriptions Prescriptions: New dexamethasone 6 mg tablet 6 mg PO DAILY Qty: 7 RF: 0 levofloxacin 250 mg tablet 250 mg PO DAILY Qty: 4 RF: 0 furosemide [Lasix] 40 mg tablet 40 mg PO BID Qty: 60 RF: 0 Continued allopurinol 300 mg tablet 300 mg PO DAILY RF: 0 meclizine 12.5 mg tablet 12.5 mg PO PRN PRN (Reason: Vertigo) RF: 0 pantoprazole 40 mg tablet,delayed release (DR/EC) 40 mg PO DAILY RF: 0 furosemide 20 mg tablet 40 mg PO DAILY RF: 0 rosuvastatin 10 mg tablet 10 mg PO QHS RF: 0 Eliquis 5 mg tablet 2.5 mg PO BID Qty: 180 RF: 3 levothyroxine 125 MCG tablet 125 mcg PO DAILY RF: 0 acetaminophen 500 MG tablet 1,000 mg PO Q6H PRN (Reason: Mild Pain (1-3/10)) RF: 0 dutasteride 0.5 MG capsule 0.5 mg PO DAILY RF: 0 albuterol sulfate 90 mcg/actuation HFA aerosol inhaler 2 puff inhalation Q4H PRN (Reason: shortness of breath or wheezing) Qty: 6.7 RF: 0 ipratropium-albuterol 0.5 mg-3 mg(2.5 mg base)/3 mL solution for nebulization 3 ml inhalation Q4H RF: 0 aspirin 81 mg tablet,delayed release (DR/EC) See Rx Instructions .ROUTE .COMPLEX RF: 0 tamsulosin 0.4 MG capsule 0.4 mg PO DAILY@1730 RF: 0 budesonide 0.5 mg/2 mL suspension for nebulization 0.5 mg inhalation BID RF: 0 Mucus Relief ER 1,200 mg tablet extended release 12hr 1,200 mg PO BID RF: 0 No Action dexamethasone [Decadron] 6 mg tablet 6 mg PO DAILY Qty: 7 RF: 0 levofloxacin 250 mg tablet 250 mg PO DAILY Qty: 4 RF: 0 Referrals / Follow Up: Demetrius Song MD [STAFF PHYSICIAN] - See Referral Note (Follow up with the Pulm onologist in 4-6 weeks. ) Alexandro Lovell MD [Primary Care Provider] - Within 2 Weeks (See your Doctor after your 20 day quarantine, which ends on January 21, 2021. ) Disposition Disposition (needs filled in before D/C Order can be placed): Home, Self Care Documented by User: Dr. Nakita Mcdonald MD 01/18/21 19:19 Providers Date of Admission: 01/14/21 Date of Discharge: 01/18/21 Reason For Visit: ACUTE RESP FAILURE/COVID-19 Diagnosis Discharge Diagnosis (1) Acute and chronic respiratory failure with hypoxia: Status: Chronic Code(s): J96.21 - Acute and chronic respiratory failure with hypoxia (2) COVID: Status: Acute Code(s): U07.1 - COVID-19 (3) AROLDO (obstructive sleep apnea): Status: Acute Code(s): G47.33 - Obstructive sleep apnea (adult) (pediatric) (4) Acute hypoxemic respiratory failure: Status: Acute Code(s): J96.01 - Acute respiratory failure with hypoxia Medications at Discharge Home Medications levothyroxine 125 mcg PO DAILY 03/28/18 acetaminophen 1,000 mg PO Q6H PRN tab 07/25/18 allopurinol 300 mg tablet 300 mg PO DAILY 07/27/18 pantoprazole 40 mg tablet,delayed release 40 mg PO DAILY 08/16/18 meclizine 12.5 mg tablet 12.5 mg PO PRN PRN 08/24/19 rosuvastatin 10 mg tablet 10 mg PO QHS tab 02/11/20 dutasteride 0.5 mg PO DAILY 02/18/20 apixaban 5 mg tablet 2.5 mg PO BID #180 tab 03/06/20 furosemide 20 mg tablet 40 mg PO DAILY tab 04/24/20 albuterol sulfate 2 puff INHALATION Q4H PRN #6.7 g 11/25/20 Mucus Relief ER 1,200 mg PO BID 01/14/21 aspirin See Rx Instructions .ROUTE .COMPLEX 01/14/21 budesonide 0.5 mg INHALATION BID 01/14/21 ipratropium-albuterol 3 ml INHALATION Q4H 01/14/21 tamsulosin 0.4 mg PO DAILY@1730 01/14/21 dexamethasone 6 mg PO DAILY #7 tab 01/18/21 dexamethasone 6 mg tablet 6 mg PO DAILY #7 tab 01/18/21 furosemide [Lasix] 40 mg PO BID #60 tab 01/18/21 levofloxacin 250 mg PO DAILY #4 tab 01/18/21 levofloxacin 250 mg tablet 250 mg PO DAILY #4 tab 01/18/21 ABG / Lab / Microbiology Data Result Diagrams: 01/18/21 06:17 01/18/21 06:17 Meaningful Use Info Meaningful Use Diagnoses (Choose all that apply): None applicable Discharge Plan Admission Admit Date/Time: 01/14/21 12:22 Primary Reason for Your Visit: COVID 19 Infection Attending Provider: Nakita Mcdonald Primary Care Provider: Alexandro Lovell Consulting Providers: Demetrius Song ; Frank Aj ; Zenobia Raya ASSEMBLYMAN OR WOMAN Instructions Additional Instructions / Restrictions: You are required to quarantine for 20 days since the beginning of your symptoms. Your quarantine ends on January 21, 2021. Discharge Orders/Prescriptions Prescriptions: New dexamethasone 6 mg tablet 6 mg PO DAILY Qty: 7 RF: 0 levofloxacin 250 mg tablet 250 mg PO DAILY Qty: 4 RF: 0 furosemide [Lasix] 40 mg tablet 40 mg PO BID Qty: 60 RF: 0 Continued allopurinol 300 mg tablet 300 mg PO DAILY RF: 0 meclizine 12.5 mg tablet 12.5 mg PO PRN PRN (Reason: Vertigo) RF: 0 pantoprazole 40 mg tablet,delayed release (DR/EC) 40 mg PO DAILY RF: 0 furosemide 20 mg tablet 40 mg PO DAILY RF: 0 rosuvastatin 10 mg tablet 10 mg PO QHS RF: 0 Eliquis 5 mg tablet 2.5 mg PO BID Qty: 180 RF: 3 levothyroxine 125 MCG tablet 125 mcg PO DAILY RF: 0 acetaminophen 500 MG tablet 1,000 mg PO Q6H PRN (Reason: Mild Pain (1-10)) RF: 0 dutasteride 0.5 MG capsule 0.5 mg PO DAILY RF: 0 albuterol sulfate 90 mcg/actuation HFA aerosol inhaler 2 puff inhalation Q4H PRN (Reason: shortness of breath or wheezing) Qty: 6.7 RF: 0 ipratropium-albuterol 0.5 mg-3 mg(2.5 mg base)/3 mL solution for nebulization 3 ml inhalation Q4H RF: 0 aspirin 81 mg tablet,delayed release (DR/EC) See Rx Instructions .ROUTE .COMPLEX RF: 0 tamsulosin 0.4 MG capsule 0.4 mg PO DAILY@1730 RF: 0 budesonide 0.5 mg/2 mL suspension for nebulization 0.5 mg inhalation BID RF: 0 Mucus Relief ER 1,200 mg tablet extended release 12hr 1,200 mg PO BID RF: 0 No Action dexamethasone [Decadron] 6 mg tablet 6 mg PO DAILY Qty: 7 RF: 0 levofloxacin 250 mg tablet 250 mg PO DAILY Qty: 4 RF: 0 Referrals / Follow Up: Demetrius Song MD [STAFF PHYSICIAN] - See Referral Note (Follow up with the Biodiesel Plant Manager in 4-6 weeks. ) Alexandro Lovell MD [Primary Care Provider] - Within 2 Weeks (See your Doctor after your 20 day quarantine, which ends on January 21, 2021. ) Disposition Disposition (needs filled in before D/C Order can be placed): Home, Self Care Charges/Coding Addendum Addendum: This patient was seen in conjunction with BLAISE Lowe. I have independently interviewed and examined the patient and reviewed pertinent historical, laboratory, and other data. Please refer to BLAISE Lowe's note for his patient's presentation, findings, and recommendations. I have reviewed and his note and concur with his documentation 85-year-old male with multiple past medical history who comes in with complaints of shortness of breath ongoing for about 2 weeks. Patient was recently seen by pulmonology. He is on 4 L at baseline. He has been vaccinated. Patient was requiring 6 L of oxygen in the ED. His management on the PCU has been that of COVID-19 pneumonia/acute hypoxic respiratory/probable acute exacerbation of heart failure preserved EF. Patient improved on IV Lasix, breathing treatment, Decadron. Pulmonology was consulted. He was encouraged to work on his incentive spirometer. He also improved with his BiPAP. Patient was found to be saturating 5 L of oxygen arrest on the day of discharge, and 6 L on exertion. Sputum cultures grew Enterobacter pneumonia and patient was managed on Levaquin with improvement. He will finish 7 days of Levaquin and 10 days of Decadron. He will completed 20-day quarantine. He will follow-up with primary care doctor and exceptional children teacher assistant. Physical exam: General: Alert, Oriented x3, Cooperative, obese, hard of hearing HEENT: Atraumatic Oral: Moist Mucosa Neck: Supple Lungs: Diminished Cardiovascular: HS I+II, regular, no murmurs Abdomen: Bowel Sounds Present, Soft, Non Tender Extremities: Bilateral leg edema +1 Visit Charges Inpatient E&M: 77896 Disch Hosp
--- NOTE | 2021-01-20 15:12 | CASEMGMT ---
LÓPEZ BLACKWELL Discharge Follow-up Phone Call: REY: Ruba Strata: 3 Call Date: 01/20/21 Discharge Date: 01/18/21 Time of Call: [id number] Duration: 5 min Admitting Diagnosis: Covid LÓPEZ BLACKWELL completed follow-up phone call after recent hospitalization. Patient states he is doing well. Patient had no questions regarding discharge instructions. Patient continues to isolate at home. Patient states his oxygen has been well. Patient was able to fill prescription without any issues. Patient aware to schedule follow-up appts. Patient had no further questions or concern at this time.
[2021-01-20 16:10] LABS: Pathologist Review Reviewed
== END 2021-01-18 15:48 | disposition home or self-care (01) | DRG 177 ==
LOC: ED 11:55 → PCU 12:33
PROVIDERS: Physician Assistant; Admitting Provider Internal Medicine; Emergency Provider Emergency Medicine; PCP Family Medicine; Visit Provider Internal Medicine
DX: U07.1 COVID-19 (principal); J96.21 Acute and chronic respiratory failure with hypoxia; J12.82 Pneumonia due to coronavirus disease 2019; J15.6 Pneumonia due to other Gram-negative bacteria; I50.33 Acute on chronic diastolic (congestive) heart failure; I13.0 Hypertensive heart and chronic kidney disease with heart failure and stage 1 through stage 4 chronic kidney disease, or unspecified chronic kidney disease; I24.8 Other forms of acute ischemic heart disease; J44.0 Chronic obstructive pulmonary disease with (acute) lower respiratory infection; N18.31 Chronic kidney disease, stage 3a; D69.6 Thrombocytopenia, unspecified; D64.9 Anemia, unspecified; I49.5 Sick sinus syndrome; E03.9 Hypothyroidism, unspecified; E78.5 Hyperlipidemia, unspecified; F32.9 Major depressive disorder, single episode, unspecified; G47.33 Obstructive sleep apnea (adult) (pediatric); I25.10 Atherosclerotic heart disease of native coronary artery without angina pectoris; J98.4 Other disorders of lung; E66.9 Obesity, unspecified; Z68.36 Body mass index [BMI] 36.0-36.9, adult; K21.9 Gastro-esophageal reflux disease without esophagitis; M10.9 Gout, unspecified; M19.90 Unspecified osteoarthritis, unspecified site; J84.10 Pulmonary fibrosis, unspecified; I48.0 Paroxysmal atrial fibrillation; I25.2 Old myocardial infarction; Z86.19 Personal history of other infectious and parasitic diseases; Z87.19 Personal history of other diseases of the digestive system; Z96.643 Presence of artificial hip joint, bilateral; Z95.1 Presence of aortocoronary bypass graft; Z99.81 Dependence on supplemental oxygen; Z79.82 Long term (current) use of aspirin; Z79.01 Long term (current) use of anticoagulants; Z79.899 Other long term (current) drug therapy; Z87.891 Personal history of nicotine dependence
CPT/HCPCS: 36415; 71045; 71275; 80048; 80053; 83605; 83880; 84484; 85025; 87040; 87070; 87077; 87186; 87205; 87426; 87449; 87633; 93005; 94003; 94640; 94660; 95811; 97110; 97116; 97162; 97166; 97530; 97535; 97802; 99251; 99284; Q9967; A4216; G0463; J1940

== ENCOUNTER → 2021-01-26 10:00 | Outpatient (CLI) | payer MEDICARE, BC, SELFPAY | PROVIDERS: PCP Family Medicine; Visit Provider Nurse Practitioner Acute Care | DX: Z46.89 Encounter for fitting and adjustment of other specified devices (principal) ==

== ENCOUNTER → 2021-02-17 09:29 | Outpatient (CLI) | payer MEDICARE, BC, SELFPAY | PROVIDERS: PCP Family Medicine; Visit Provider Nurse Practitioner Acute Care | DX: G47.33 Obstructive sleep apnea (adult) (pediatric) (principal) ==

== ENCOUNTER → 2021-02-27 10:53 | Outpatient (CLI) | payer MEDICARE, BC, SELFPAY ==
[2021-02-27 11:39] LABS: Absolute Lymphocyte Count 0.63 X10^3/uL (0.83-4.51); Absolute Neutrophil Count 5.4 X10^3/uL (2.0-7.7); Basophil# 0.05 X10^3/uL; Basophil% 0.7 % (0-1); Eosinophil# 0.25 X10^3/uL; Eosinophils% 3.5 % (0-5); Hematocrit 34.6 % (40-54); Hemoglobin 10.6 g/dL (13.0-16.5); Lymphocyte # 0.63 X10^3/ul (0.83-4.51); Lymphocyte % 8.7 % (19-41); Mean Corp Hgb Conc 30.6 g/dL (32-36); Mean Corpuscular Hgb 29.6 pg (27.0-32.0); Mean Corpuscular Volume 96.6 fL (80-94); Mean Platelet Vol. 11.4 fl (6.2-12.0); Monocyte# 0.59 X10^3/uL; Monocyte% 8.2 % (0-10); NRBC Flagged by Analyzer 0 % (0-5); Neutrophil # 5.37 X10^3/uL (2.7-7.7); Neutrophil % 74.5 % (47-70); Platelet Count 170 K/mm3 (150-450); RBC Distribution Width CV 15.9 % (11.6-14.6); RBC Distribution Width SD 56.4 fl (35.1-43.9); Red Blood Count 3.58 M/mm3 (4.6-6.2); White Blood Count 7.2 K/mm3 (4.4-11.0)
[2021-02-27 12:16] LABS: BNP,B-Type NATRIURETIC PEPTIDE 156.8 pg/mL (0-100)
[2021-02-27 12:42] LABS: Anion Gap 6 (5-15); BUN 42 mg/dL (7-18); BUN/Creat Ratio 32.3 RATIO (10-20); Calcium,Total 8.9 mg/dL (8.5-10.1); Chloride 108 mmol/L (98-107); EST Glomerular Filtration Rate 56 mL/min (>60); Est Glom Filt Rate - Afr Amer 68 mL/min (>60); Glucose 137 mg/dL (74-106); Potassium 3.6 mmol/L (3.5-5.1); Sodium Level 139 mmol/L (136-145)
== END ==
PROVIDERS: PCP Family Medicine; Referring Provider Physician Assistant Medical; Visit Provider Physician Assistant Medical
DX: J96.11 Chronic respiratory failure with hypoxia (principal); R60.9 Edema, unspecified; I21.4 Non-ST elevation (NSTEMI) myocardial infarction; E87.5 Hyperkalemia
CPT/HCPCS: 36415; 80048; 83880; 85025

== ENCOUNTER 2021-03-09 20:47 | Inpatient (IN) | payer MEDICARE, BC, SELFPAY ==
[2021-03-09 20:49] VITALS: BP 118/79; PULSE 86; RESP 18; TEMP 36.9; O2SAT 95; BMI 34.7
--- NOTE | 2021-03-09 21:10 | RAD_ITS ---
STUDY: X-RAY CHEST REASON FOR EXAM: Male, 85 years old. SOB TECHNIQUE: Single AP portable view of the chest. COMPARISON: January 14, 2021 FINDINGS: Stable left chest cardiac device. Improved aeration of both lungs with cleared or decreased infiltrates previously seen in both lower lobes and perihilar regions. Mild to moderate chronic interstitial scarring and cystic emphysematous changes are still present. Trace bilateral pleural effusions are also still present. Sternal cerclage wires and vascular clips are present from a prior sternotomy and coronary artery bypass graft procedure (CABG). Normal heart size. Normal mediastinum and joey. Normal visualized pulmonary arteries. There is atherosclerotic calcification of the aortic arch with tortuosity. There are diffuse degenerative changes of the visualized thoracic spine. Normal visualized ribs, clavicles, and shoulders. There is no demonstrated abnormality of the visualized soft tissue structures of the upper abdomen. RAD/Chest 1 View (Portable) IMPRESSION: Improved aeration of both lungs with cleared or decreased infiltrates previously seen in both lower lobes and perihilar regions. Mild to moderate chronic interstitial scarring and cystic emphysematous changes are still present. Trace bilateral pleural effusions are also still present. Electronically Signed: Jim Smith MD at 22:34 EDT , Service support ,
--- NOTE | 2021-03-09 21:10 | EKG12_ITS ---
Test Reason : Blood Pressure : / mmHG Vent. Rate : 085 BPM Atrial Rate : 085 BPM P-R Int : 240 ms QRS Dur : 106 ms QT Int : 404 ms P-R-T Axes : 034 -33 143 degrees QTc Int : 480 ms Sinus rhythm with 1st degree A-V block with Premature atrial complexes Left axis deviation ST & T wave abnormality, consider lateral ischemia Abnormal ECG Confirmed by STEVE PEOPLES, MINOR ([id number]), senior editor ZULY PRAKASH ([id number]) on 03/11/2021 1:52:20 PM Referred By: PL Confirmed By:MINOR WILSON MD
--- NOTE | 2021-03-09 21:12 | ED.VIS.DYS ---
HPI History of Present Illness Chief Complaint: Shortness of Breath Informant: patient and family Narrative Narrative: Patient presents with increasing oxygen needs and worsening dyspnea. He states he really noticed a difference over the last few days. He is normally on 4 L of oxygen ever since November. He did have Covid in December. He has COPD. He does use his nebulizer. It does not seem to make any major changes in his dyspnea chronically or in the last few days. He has noticed a slight weight gain although nonspecific amount. He also notes some bilateral lower extremity edema over the last week or so. It is a little bit more than his baseline. He is on Lasix 40 a day. He also evidently had amlodipine stopped in the past week because his blood pressure was running too low. He has history of two-vessel bypass in June 2018. Never had a PE or DVT. He is on Eliquis and is taking it. He denies chest pain. He coughs but no sputum production or change. His oxygen requirements have gone from 4 L up to 5 at baseline and 6 if he walks. He can normally walk to the bathroom and not desaturate but today he was walking and he dropped into the seventies consistently. It would come back up if he rested or increased his oxygen. [facility] Medical History Acute and chronic respiratory failure with hypoxia Acute blood loss anemia Atherosclerotic heart disease of [place] coronary artery without angina pectoris Atrial flutter Cellulitis Chest pain Chronic renal insufficiency CKD (chronic kidney disease) stage 3, GFR 30-59 ml/min COPD (chronic obstructive pulmonary disease) COVID Depression Dizziness Essential hypertension GERD (gastroesophageal reflux disease) GI bleed Gout Healthcare associated bacterial pneumonia (Unknown) HTN (hypertension) Hyperkalemia Hyperlipidemia Hypothyroidism Macrocytic anemia Mixed obstructive and restrictive ventilatory defect Morbid obesity with BMI of 40.0-44.9, adult NSTEMI (non-ST elevated myocardial infarction) Old myocardial infarction AROLDO (obstructive sleep apnea) Osteoarthritis Pacemaker Paroxysmal atrial fibrillation Pulmonary fibrosis Retinal artery occlusion Sepsis Sick sinus syndrome Home Medications levothyroxine 125 mcg PO DAILY 03/28/18 [History Last Taken 02/18/20] acetaminophen 1,000 mg PO Q6H PRN tab 07/25/18 [Rx Last Taken 01/14/21 12:00] allopurinol 300 mg tablet 300 mg PO DAILY 07/27/18 [History Last Taken 02/17/20] pantoprazole 40 mg tablet,delayed release 40 mg PO DAILY 08/16/18 [History Last Taken 02/18/20] rosuvastatin 10 mg tablet 10 mg PO QHS tab 02/11/20 [History Last Taken 02/17/20] dutasteride 0.5 mg PO DAILY 02/18/20 [History Last Taken 02/17/20] Mucus Relief ER 1,200 mg PO BID 01/14/21 [History Last Taken 01/14/21 08:00] aspirin 81 mg PO DAILY 01/14/21 [History Last Taken Unknown] ipratropium-albuterol 3 ml INHALATION Q4H 01/14/21 [History Last Taken Unknown] tamsulosin 0.4 mg PO DAILY@1730 01/14/21 [History Last Taken Unknown] budesonide 0.5 mg/2 mL suspension for nebulization 0.5 mg INHALATION BID #120 ml 01/27/21 [Rx Last Taken Unknown] furosemide 40 mg tablet 40 mg PO DAILY tab 02/25/21 [History Last Taken Unknown] apixaban [Eliquis] 2.5 mg PO BID 03/09/21 [History Last Taken Unknown] Allergy/AdvReac Type Severity Reaction Status Date / Time atorvastatin [From Lipitor] AdvReac MUSCLE PAIN Verified 03/09/21 20:51 Family History Father Cancer Lung Heart disease Myocardial infarction Surgical History History of bilateral hip replacements History of permanent cardiac pacemaker placement (02/18/20) S/P coronary artery bypass graft x 2 (~06/23/18) Social History housing: house Smoking Status: Former smoker how long ago did patient quit smokin years ago alcohol intake: never substance use type: does not use caffeine: No what type of physical activity do you participate in: walking frequency: daily ROS ROS ED Constitutional Constitutional ED: Denies chills, fever(s) or sweats Eyes Eyes: Denies blurry vision ENT ENT ED: Denies rhinorrhea or sore throat Cardiovascular Cardiovascular: Denies chest pain, orthopnea, palpitations or racing heartbeat Respiratory/Chest Respiratory/Chest: Reports cough, dyspnea and dyspnea on exertion; Denies orthopnea Gastrointestinal Gastrointestinal: Denies abdominal pain, nausea or vomiting Genitourinary Genitourinary ED: Denies dysuria or hematuria Musculoskeletal Musculoskeletal: Denies arthralgias, back pain, myalgias or neck pain Integumentary Denies rash Neurologic Neurologic: Denies headache(s), paresthesias or weakness Endocrine Endocrinology: Denies polydipsia or polyuria Hematologic/Lymphatic Hematologic/Lymphatic: Denies easy bleeding or easy bruising Allergic/Immunologic Allergic/Immunologic ED: Denies urticaria EXAM Physical Exam Const Vital Signs: 03/09/21 20:49 03/09/21 21:13 03/09/21 21:22 Temperature 98.4 F Temperature Source Temporal Pulse Rate 86 85 Respiratory Rate 18 22 H Respiratory Effort Normal Respiratory Pattern Tachypnea Blood Pressure 118/79 Blood Pressure Mean 92 Pulse Ox 95 Oxygen Delivery Method Nasal Cannula Oxygen Flow Rate (L/min) 5 03/09/21 23:21 03/09/21 23:24 Temperature 97.4 F L Temperature Source Temporal Pulse Rate 88 88 Respiratory Rate 19 H 19 H Respiratory Effort Respiratory Pattern Blood Pressure 140/47 H 140/47 H Blood Pressure Mean 78 78 Pulse Ox 94 94 Oxygen Delivery Method Nasal Cannula Nasal Cannula Oxygen Flow Rate (L/min) 4 4 Patient has 96% sat on about 5 L just sitting in bed and he looks comfortable and carries on a normal conversation at this point. Positive well nourished, well developed and obese General Appearance ED: well developed and NAD Nutritional Appearance: obese HEENT Reports moist mucous membranes atraumatic Eyes General Eye ED: Negative for pale conjunctiva or scleral icterus Neck no meningeal signs and no JVD Resp normal respiratory effort Resp Narrative: Patient does appear to have some basilar rales equal on both sides. No real wheezing is heard. No rhonchi. No indication of pain with deep breath. Auscultation: rales; Negative for wheezes Cardio regular rate and regular rhythm Cardio Narrative: Frequent PACs. Patient initially has a click when listening to his anterior chest. With palpation this is found to be nonfusion of his median sternotomy. This is evidently not new per patient. GI non-tender and non-distended Palpation: soft Back/Spine no CVA tenderness Extremity General Extremety ED: Yes edema General Extremity: edema Neuro oriented x3 Sensorium / Orientation: alert Psych mental status grossly normal Thought Process: normal thought process Skin Lesions: no lesions Rashes: no rashes MDM MDM MDM Narrative Medical decision making narrative: Patient's blood work shows minimal anemia that would not explain his symptoms. Electrolytes show no marked abnormalities. Creatinine was a bit elevated but this really is in his baseline range. Troponin is 48. BNP is only 169. Chest x-ray shows chronic changes but no acute process and its improved since some of his prior imagery. I went back and checked the patient. He did sound slightly better after breathing treatment but still has coarse sounds and crackles at the bases. I still do not hear typical wheezing. We got him up and walked him. He was on 5 L rather than his normal 4. We stood him up on bed. He walked about 3 feet to his right than left and he was already at 86% with a good waveform. He looked more dyspneic. He sat down. Within about 3 or so minutes he was above 90. I also found out that the patient was a smoker which we knew. 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 He has a significant history of exposure to multiple dust and irritants throughout his life. This likely causes some degree of pulmonary fibrosis or injury. This might explain some of his chronic x-ray findings. I think his dyspnea is likely multifactorial. There still could be a component of CHF. He does have increased peripheral edema. He is on Lasix at 40 a day. He is due for an echocardiogram in 1 to 2 days as an outpatient. There is likely a component of emphysema. I will give him another breathing treatment. He does state that he is done well on steroids so we did give him a dose. His Covid is negative. He is already anticoagulated. Patient is also due for an outpatient echo in 2 days. I he has not had 1 since his bypass surgery in June 2018. With his rapid hypoxia and symptoms I think he needs to come in the hospital. Hospitalist is on page. Lab Data Attestation: I reviewed the patient's lab results. Labs: Laboratory Results - last 24 hr 03/09/21 03/09/21 03/09/21 21:15 21:15 21:15 WBC 6.9 RBC 3.75 L Hgb 11.4 L Hct 35.8 L MCV 95.5 H MCH 30.4 MCHC 31.8 L RDW Std Deviation 55.9 H RDW Coeff of Thang 16.0 H Plt Count 239 MPV 11.1 Neut % (Auto) Not Reportable Absolute Neuts (auto) 4.8 Absolute Lymphs (auto) 1.67 Total Counted 100 Neutrophils % (Manual) 62 Band Neutrophils % 7 H Lymphocytes % (Manual) 24 Monocytes % (Manual) 5 Metamyelocytes % 2 H Diff Path Review May foll Platelet Estimate ADEQUATE RBC Morphology N CHROM Anisocytosis 1+ Sodium 140 Potassium 4.5 Chloride 104 Carbon Dioxide 28.0 Anion Gap 8 BUN 46 H Creatinine 1.44 H Estim Creat Clear Calc 44.40 Est GFR (MDRD) Af Amer 60 Est GFR (MDRD) Non-Af 50 L BUN/Creatinine Ratio 31.9 H Glucose 200 H Calcium 8.9 Troponin I High Sens 48 B-Natriuretic Peptide 169.6 H Radiography Diagnostic Testing: Clinical Impression(s) from Imaging Studies Chest X-Ray 03/09/21 21:10 IMPRESSION: Improved aeration of both lungs with cleared or decreased infiltrates previously seen in both lower lobes and perihilar regions. Mild to moderate chronic interstitial scarring and cystic emphysematous changes are still present. Trace bilateral pleural effusions are also still present. Electronically Signed: Jim Smith MD at 22:34 EDT , Service support , EKG Initial EKG: Comments: EKG done for dyspnea shows sinus rhythm with first-degree AV block and PACs. Nonspecific ST and T wave changes but no sign of infarct or ischemia. IA interval is long. QRS duration is normal. QTc is a bit long at 480 ms. Discharge Plan Dx/Rx/DC Orders Clinical Impression: Dyspnea, Acute respiratory failure with hypoxia, COPD exacerbation Disposition Disposition: Acute Care [facility]
[2021-03-09] MEDS: Ipratropium/Albuterol Sulfate 3 ML AMPUL.NEB INHALATION (21:20)
[2021-03-09 21:22] VITALS: PULSE 85; RESP 22
[2021-03-09 21:35] LABS: Hematocrit 35.8 % (40-54); Hemoglobin 11.4 g/dL (13.0-16.5); Mean Corp Hgb Conc 31.8 g/dL (32-36); Mean Corpuscular Hgb 30.4 pg (27.0-32.0); Mean Corpuscular Volume 95.5 fL (80-94); Mean Platelet Vol. 11.1 fl (6.2-12.0); POSITIVE COUNT YES; POSITIVE MORPHOLOGY YES; Platelet Count 239 K/mm3 (150-450); RBC Distribution Width SD 55.9 fl (35.1-43.9); Red Blood Count 3.75 M/mm3 (4.6-6.2); White Blood Count 6.9 K/mm3 (4.4-11.0)
[2021-03-09 21:48] LABS: Differential Indicated MANUAL DIFF
[2021-03-09 21:58] LABS: Anion Gap 8 (5-15); BUN 46 mg/dL (7-18); BUN/Creat Ratio 31.9 RATIO (10-20); Calcium,Total 8.9 mg/dL (8.5-10.1); Chloride 104 mmol/L (98-107); Creatinine, Serum 1.44 mg/dL (0.70-1.30); EST Glomerular Filtration Rate 50 mL/min (>60); Est Glom Filt Rate - Afr Amer 60 mL/min (>60); Glucose 200 mg/dL (74-106); Potassium 4.5 mmol/L (3.5-5.1); Sodium Level 140 mmol/L (136-145); Troponin-I HS 48 pg/mL (3.0-78.0)
[2021-03-09 22:00] LABS: BNP,B-Type NATRIURETIC PEPTIDE 169.6 pg/mL (0-100)
[2021-03-09 22:04] LABS: Lymphocyte 24 % (19-41); Metamyelocyte 2 % (0-1); Monocyte 5 % (0-10); Neutrophil-Band 7 % (0-5); Neutrophil-Segmented 62 % (47-70); Total Cells Counted 100 (MANUAL DIFF)
[2021-03-09 22:05] LABS: Anisocytosis 1+; Platelet Estimate ADEQUATE (ADEQ); Red Cell Morphology N CHROM NORMAL (NORM C&C)
[2021-03-09 22:06] LABS: Absolute Lymphocyte Count 1.67 X10^3/uL (0.83-4.51); Absolute Neutrophil Count 4.8 X10^3/uL (2.0-7.7)
[2021-03-09 23:21] VITALS: BP 140/47; PULSE 88; RESP 19; O2SAT 94
[2021-03-09 23:24] VITALS: BP 140/47; PULSE 88; RESP 19; TEMP 36.3; O2SAT 94
[2021-03-09] MEDS: MethylPREDNISolone 125 MG/2 ML Vial IV (23:54)
[2021-03-10] VITALS (21 sets, daily range): BP systolic 110–143; BP diastolic 54–83; PULSE 83–93; RESP 16–24; TEMP 36.4–37.2; O2SAT 91–96; BMI 35.5
[2021-03-10] MEDS: Albuterol 2.5 MG/3 ML VIAL.NEB. INHALATION
--- NOTE | 2021-03-10 00:10 | PCM.HP.STD ---
Documented by User: TATUM Ramirez 03/10/21 00:23 HPI - General General Date of Admission: 03/10/21 Date of Service: 03/10/21 Chief Complaint: Shortness of breath HPI Narrative HIRAM KRUEGER, is a 85 M who presents with complaints of increased shortness of breath. Patient states over the past 3 days patient has needed to turn up his oxygen from 4 L to 5 L and continues to be short of breath when ambulating. Patient also reports that following ambulation his pulse ox is decreased. Patient reports an extensive history of COPD and has underwent bypass in the past. Patient denies fever, chills, increased cough, chest pain, nausea, vomiting. Patient also complains of increased edema to his bilateral lower extremities. Patient also reports that he was set to have a echocardiogram completed on Tuesday however patient does not know why. [facility] Medical History Acute and chronic respiratory failure with hypoxia Acute blood loss anemia Atherosclerotic heart disease of [place] coronary artery without angina pectoris Atrial flutter Cellulitis Chest pain Chronic renal insufficiency CKD (chronic kidney disease) stage 3, GFR 30-59 ml/min COPD (chronic obstructive pulmonary disease) COVID Depression Dizziness Essential hypertension GERD (gastroesophageal reflux disease) GI bleed Gout Healthcare associated bacterial pneumonia (Unknown) HTN (hypertension) Hyperkalemia Hyperlipidemia Hypothyroidism Macrocytic anemia Mixed obstructive and restrictive ventilatory defect Morbid obesity with BMI of 40.0-44.9, adult NSTEMI (non-ST elevated myocardial infarction) Old myocardial infarction AROLDO (obstructive sleep apnea) Osteoarthritis Pacemaker Paroxysmal atrial fibrillation Pulmonary fibrosis Retinal artery occlusion Sepsis Sick sinus syndrome Home Medications levothyroxine 125 mcg PO DAILY 03/28/18 [History Last Taken 02/18/20] acetaminophen 1,000 mg PO Q6H PRN tab 07/25/18 [Rx Last Taken 01/14/21 12:00] allopurinol 300 mg tablet 300 mg PO DAILY 07/27/18 [History Last Taken 02/17/20] pantoprazole 40 mg tablet,delayed release 40 mg PO DAILY 08/16/18 [History Last Taken 02/18/20] rosuvastatin 10 mg tablet 10 mg PO QHS tab 02/11/20 [History Last Taken 02/17/20] dutasteride 0.5 mg PO DAILY 02/18/20 [History Last Taken 02/17/20] Mucus Relief ER 1,200 mg PO BID 01/14/21 [History Last Taken 01/14/21 08:00] aspirin 81 mg PO DAILY 01/14/21 [History Last Taken Unknown] ipratropium-albuterol 3 ml INHALATION Q4H 01/14/21 [History Last Taken Unknown] tamsulosin 0.4 mg PO DAILY@1730 01/14/21 [History Last Taken Unknown] budesonide 0.5 mg/2 mL suspension for nebulization 0.5 mg INHALATION BID #120 ml 01/27/21 [Rx Last Taken Unknown] furosemide 40 mg tablet 40 mg PO DAILY tab 02/25/21 [History Last Taken Unknown] apixaban [Eliquis] 2.5 mg PO DAILY 03/09/21 [History Last Taken Unknown] Allergy/AdvReac Type Severity Reaction Status Date / Time atorvastatin [From Lipitor] AdvReac MUSCLE PAIN Verified 03/09/21 20:51 Family History Father Cancer Lung Heart disease Myocardial infarction Surgical History History of bilateral hip replacements History of permanent cardiac pacemaker placement (02/18/20) S/P coronary artery bypass graft x 2 (~06/23/18) Social History housing: house Smoking Status: Former smoker how long ago did patient quit smokin years ago alcohol intake: never substance use type: does not use caffeine: No what type of physical activity do you participate in: walking frequency: daily ROS Constitutional Constitutional: Denies anorexia, chills, fever(s), malaise or weakness Cardiovascular Cardiovascular: Reports leg edema and tachypnea; Denies chest pain, palpitations or syncope Respiratory/Chest Respiratory/Chest: Reports portable oxygen @ home, shortness of breath at rest, shortness of breath with exertion and wheezing; Denies cough Gastrointestinal Gastrointestinal: Denies abdominal pain, constipation, diarrhea, nausea or vomiting Genitourinary Genitourinary: Denies dysuria Musculoskeletal Musculoskeletal: Denies back pain, extremity pain, joint pain or joint stiffness Integumentary Integumentary: Denies dry skin Neurologic Neurologic: Denies abnormal gait, abnormal speech, confusion, dizziness or focal weakness Psychiatric Psychiatric: Denies anxiety or depression Endocrine Endocrinology: Denies change in body appearance Hematologic/Lymphatic Hematologic/Lymphatic: Denies anemia, easy bleeding or easy bruising Vital Signs Vital Signs Vital Signs: 03/09/21 20:49 03/09/21 21:13 03/09/21 21:22 Temperature 98.4 F Temperature Source Temporal Pulse Rate 86 85 Respiratory Rate 18 22 H Respiratory Effort Normal Respiratory Depth Respiratory Pattern Tachypnea Blood Pressure 118/79 Blood Pressure Mean 92 Pulse Ox 95 Oxygen Delivery Method Nasal Cannula Oxygen Flow Rate (L/min) 5 03/09/21 23:21 03/09/21 23:24 03/10/21 00:01 Temperature 97.4 F L Temperature Source Temporal Pulse Rate 88 88 Respiratory Rate 19 H 19 H 20 H Respiratory Effort Normal Non-Labored Respiratory Depth Normal Respiratory Pattern Normal Blood Pressure 140/47 H 140/47 H Blood Pressure Mean 78 78 Pulse Ox 94 94 Oxygen Delivery Method Nasal Cannula Nasal Cannula Nasal Cannula Oxygen Flow Rate (L/min) 4 4 5 Weight Weight: 270 lb Body Mass Index (BMI) 34.7 Physical Exam Const alert, oriented x3 and no apparent distress General Appearance: cooperative HEENT normocephalic and head/scalp atraumatic Eyes conjunctivae normal and no scleral icterus Neck supple and no JVD General: trachea midline Resp normal respiratory effort Effort and Inspection: able to speak in complete sentences and symmetric chest movement Auscultation: crackles bilateral lower and wheezes scattered wheezes Cardio regular rate, regular rhythm, S1 normal heart sound, S2 normal heart sound and peripheral pulses 2+ throughout GI normal to inspection, nondistended, normoactive bowel sounds, soft to palpation and non-tender Extremity normal capillary refill General Extremity: edema bilateral lower extremity Details: moderate and no tenderness to palpation of joints or extremities Skin General Skin Exam: no breakdown and turgor normal Lesions: no lesions Rashes: no rashes Neuro oriented x3, moves all extremities, no focal motor deficits, no sensory deficits noted and gait normal Psych thought process normal, cooperative and affect normal Appearance: appropriate Results Lab / Micro Data Result Diagrams: 03/10/21 03:10 03/10/21 03:10 Labs: Laboratory Results - last 24 hr 03/09/21 21:15: WBC 6.9, RBC 3.75 L, Hgb 11.4 L, Hct 35.8 L, MCV 95.5 H, MCH 30.4, MCHC 31.8 L, RDW Std Deviation 55.9 H, RDW Coeff of Thang 16.0 H, Plt Count 239, MPV 11.1, Neut % (Auto) Not Reportable, Absolute Neuts (auto) 4.8, Absolute Lymphs (auto) 1.67, Total Counted 100, Neutrophils % (Manual) 62, Band Neutrophils % 7 H, Lymphocytes % (Manual) 24, Monocytes % (Manual) 5, Metamyelocytes % 2 H, Diff Path Review September, Platelet Estimate ADEQUATE, RBC Morphology N CHROM, Anisocytosis 1+ 03/09/21 21:15: Sodium 140, Potassium 4.5, Chloride 104, Carbon Dioxide 28.0, Anion Gap 8, BUN 46 H, Creatinine 1.44 H, Estim Creat Clear Calc 44.40, Est GFR (MDRD) Af Amer 60, Est GFR (MDRD) Non-Af 50 L, BUN/Creatinine Ratio 31.9 H, Glucose 200 H, Calcium 8.9, Troponin I High Sens 48 03/09/21 21:15: B-Natriuretic Peptide 169.6 H Micro: Microbiology 03/09/21 22:25 Nasal Secretion SARS-CoV-2 Antigen (Rapid) - Final Radiology Impression Chest X-Ray 03/09/21 21:10 IMPRESSION: Improved aeration of both lungs with cleared or decreased infiltrates previously seen in both lower lobes and perihilar regions. Mild to moderate chronic interstitial scarring and cystic emphysematous changes are still present. Trace bilateral pleural effusions are also still present. Electronically Signed: Jim Smith MD at 22:34 EDT , Service support , Assessment & Plan Assessment/Plan (1) COPD exacerbation: (2) CHF exacerbation: QUALIFIERS: Heart failure type: unspecified Qualified Code(s): I50.9 - Heart failure, unspecified (3) Acute on chronic respiratory failure: QUALIFIERS: Respiratory failure complication: hypoxia Qualified Code(s): J96.21 - Acute and chronic respiratory failure with hypoxia PLAN: 1. Acute on chronic respiratory failure secondary to COPD exacerbation -Admit to PCU -Scheduled DuoNeb nebulizer treatments along with albuterol as needed ordered -Encourage incentive spirometry -IV steroids ordered -Oxygen per protocol, patient is on 4 L nasal cannula oxygen at baseline at home however patient is between 5 and 6 L nasal cannula currently -PT and OT to eval and treat -Vital signs per protocol -CBC and BMP ordered for a.m. -Patient currently denies increased sputum production, will not start patient on antibiotics at this time 2. CHF exacerbation -BNP 169.6 however patient complains of increased swelling in lower legs -States that he has never been diagnosed with heart failure however patient was set to undergo echocardiogram on Tuesday -Echocardiogram ordered for a.m. -Daily weights -Strict intake and output -Trend cardiac enzymes -Elevate bilateral lower extremities -Cardiac diet ordered -Twelve-lead EKG ordered for a.m -IV furosemide ordered. 3. History of CABG -Completed in 2018 4. Presence of cardiac pacemaker -Placed 02/18/2020 We will continue to follow patient with home medications for chronic diseases. DVT prophylaxis-chronically anticoagulated with Eliquis This patient was seen by TATUM Ramirez under the supervision of Dr. Baker. Documented by User: Dr. Zac Baker MD 03/10/21 06:31 HPI - General General Date of Admission: 03/10/21 [facility] Medical History Acute and chronic respiratory failure with hypoxia Acute blood loss anemia Atherosclerotic heart disease of [place] coronary artery without angina pectoris Atrial flutter Cellulitis Chest pain Chronic renal insufficiency CKD (chronic kidney disease) stage 3, GFR 30-59 ml/min COPD (chronic obstructive pulmonary disease) COVID Depression Dizziness Essential hypertension GERD (gastroesophageal reflux disease) GI bleed Gout Healthcare associated bacterial pneumonia (Unknown) HTN (hypertension) Hyperkalemia Hyperlipidemia Hypothyroidism Macrocytic anemia Mixed obstructive and restrictive ventilatory defect Morbid obesity with BMI of 40.0-44.9, adult NSTEMI (non-ST elevated myocardial infarction) Old myocardial infarction AROLDO (obstructive sleep apnea) Osteoarthritis Pacemaker Paroxysmal atrial fibrillation Pulmonary fibrosis Retinal artery occlusion Sepsis Sick sinus syndrome Home Medications levothyroxine 125 mcg PO DAILY 03/28/18 [History Last Taken 02/18/20] acetaminophen 1,000 mg PO Q6H PRN tab 07/25/18 [Rx Last Taken 01/14/21 12:00] allopurinol 300 mg tablet 300 mg PO DAILY 07/27/18 [History Last Taken 02/17/20] pantoprazole 40 mg tablet,delayed release 40 mg PO DAILY 08/16/18 [History Last Taken 02/18/20] rosuvastatin 10 mg tablet 10 mg PO QHS tab 02/11/20 [History Last Taken 02/17/20] dutasteride 0.5 mg PO DAILY 02/18/20 [History Last Taken 02/17/20] Mucus Relief ER 1,200 mg PO BID 01/14/21 [History Last Taken 01/14/21 08:00] aspirin 81 mg PO DAILY 01/14/21 [History Last Taken Unknown] ipratropium-albuterol 3 ml INHALATION Q4H 01/14/21 [History Last Taken Unknown] tamsulosin 0.4 mg PO DAILY@1730 01/14/21 [History Last Taken Unknown] budesonide 0.5 mg/2 mL suspension for nebulization 0.5 mg INHALATION BID #120 ml 01/27/21 [Rx Last Taken Unknown] furosemide 40 mg tablet 40 mg PO DAILY tab 02/25/21 [History Last Taken Unknown] apixaban [Eliquis] 2.5 mg PO DAILY 03/09/21 [History Last Taken Unknown] Allergy/AdvReac Type Severity Reaction Status Date / Time atorvastatin [From Lipitor] AdvReac MUSCLE PAIN Verified 03/09/21 20:51 Family History Father Cancer Lung Heart disease Myocardial infarction Surgical History History of bilateral hip replacements History of permanent cardiac pacemaker placement (02/18/20) S/P coronary artery bypass graft x 2 (~06/23/18) Social History housing: house Smoking Status: Former smoker how long ago did patient quit smokin years ago alcohol intake: never substance use type: does not use caffeine: No what type of physical activity do you participate in: walking frequency: daily Results Lab / Micro Data Result Diagrams: 03/10/21 03:10 03/10/21 03:10 Charges/Coding Addendum Addendum: seen and examined agree with above assessment and plan
--- NOTE | 2021-03-10 00:26 | ECHOCS_ITS ---
Reason For Study: CHF Procedure This was a 2D Doppler, Color Flow transthoracic echocardiogram. Very techincally difficult due to patients body habitus. Contrast injection was performed. The study was technically difficult. Contrast injection was performed. Exam performed portable in patient room. Left Ventricle Segmental dysfunction with preserved ejection fraction (see wall motion). The estimated ejection fraction is 55 %. Post operative septal motion. Diastolic function is indeterminate. Infero-Basal: Hypokinetic. Mid-inferoseptal : Hypokinetic. Mid-anteroseptal : Hypokinetic. Right Ventricle Normal RV size. ICD or pacer leads identified within the right ventricle. Normal systolic function. Atria The left atrium is mildly enlarged. Normal right atrium. ICD or pacer leads identified within the right atrium. No doppler evidence for ASD. Mitral Valve There is mild mitral annular calcification. Normal mitral valve. Trivial mitral valve insufficiency. Tricuspid Valve Normal tricuspid valve. Trivial tricuspid valve insufficiency. Unable to estimate RV systolic pressure/pulmonary artery pressure due to technically difficult study. Aortic Valve The aortic valve is not well visualized, however, based upon the 2D echocardiographic images obtained there appears to be thickening, calcification, and partial restriction of the aortic valve leaflets. Mild to moderate aortic stenosis. Trivial aortic valve insufficiency. Pulmonic Valve The pulmonic valve is not well visualized. Great Vessels The aortic root is not well visualized. Pericardium/Pleural No pericardial effusion. Medication Diluted definity 9ml given slow IV push to enhance endocardial definition. MMode/2D Measurements & Calculations RVDd: 4.6 cm LVOT diam: 2.1 cm LAV(MOD-bp): 87.7 ml LVOT area: 3.4 cm2 LAV(MOD-bp) Indexed: 35.4 ml/m2 LAV(MOD-sp2): 79.0 ml LAV(MOD-sp4): 81.1 ml LA A4 area: 27.3 cm2 RA A4 area: 20.4 cm2 Time Measurements MV dec time: 0.17 sec Doppler Measurements & Calculations MV E max lon: 112.6 cm/sec Lat Peak E' Lon: 14.7 cm/sec Med Peak E' Lon: 11.7 cm/sec E/E' lat: 7.7 E/E' med: 9.6 Ao V2 max: 289.9 cm/sec LV V1 max: 85.0 cm/sec SV(LVOT): 67.9 ml Ao max P.7 mmHg LV V1 max P.9 mmHg Ao V2 mean: 195.7 cm/sec LV V1 mean P.5 mmHg Ao mean P.0 mmHg LV V1 mean: 56.5 cm/sec Ao V2 VTI: 62.6 cm LV V1 VTI: 19.8 cm NAEEM(I,D): 1.1 cm2 NAEEM(V,D): 1.0 cm2 PA V2 max: 105.0 cm/sec ECHO/Echo Complete W/ Contrast Interpretation Summary The study was technically difficult. Contrast injection was performed. Segmental dysfunction with preserved ejection fraction (see wall motion). The estimated ejection fraction is 55 %. Post operative septal motion. The left atrium is mildly enlarged. Trivial mitral valve insufficiency. Trivial tricuspid valve insufficiency. The aortic valve is not well visualized, however, based upon the 2D echocardiog raphic images obtained there appears to be thickening, calcification, and partial restriction of the aortic valve leaflets. Mild to moderate aortic stenosis. Trivial aortic valve insufficiency. Unable to estimate RV systolic pressure/pulmonary artery pressure due to techni valeriano difficult study. Diastolic function is indeterminate. ICD or pacer leads identified within the right atrium ICD or pacer leads identified within the right ventricle. Ordering Physician: Ashtyn Bo Referring Physician: MD Liliya Alexandro Performed By: Darren Meza RCS
--- NOTE | 2021-03-10 00:30 | PCS.PANDOC ---
PANDEMIC DOCUMENTATION INITIATED: Date: 12/29/2020 Time: 190
[2021-03-10 02:16] LABS: Troponin-I HS 46 pg/mL (3.0-78.0)
[2021-03-10 03:21] LABS: Hematocrit 34.2 % (40-54); Hemoglobin 10.8 g/dL (13.0-16.5); Mean Corp Hgb Conc 31.6 g/dL (32-36); Mean Corpuscular Hgb 30.1 pg (27.0-32.0); Mean Corpuscular Volume 95.3 fL (80-94); Mean Platelet Vol. 10.4 fl (6.2-12.0); POSITIVE COUNT YES; POSITIVE DIFFERENTIAL YES; POSITIVE MORPHOLOGY YES; Platelet Count 196 K/mm3 (150-450); RBC Distribution Width CV 15.9 % (11.6-14.6); RBC Distribution Width SD 56.1 fl (35.1-43.9); Red Blood Count 3.59 M/mm3 (4.6-6.2); White Blood Count 6.2 K/mm3 (4.4-11.0)
[2021-03-10 03:24] LABS: Differential Indicated MANUAL DIFF
[2021-03-10 03:37] LABS: Troponin-I HS 43 pg/mL (3.0-78.0)
[2021-03-10 03:51] LABS: Anion Gap 7 (5-15); BUN 45 mg/dL (7-18); BUN/Creat Ratio 36.3 RATIO (10-20); Chloride 105 mmol/L (98-107); Creatinine, Serum 1.24 mg/dL (0.70-1.30); EST Glomerular Filtration Rate 59 mL/min (>60); Est Glom Filt Rate - Afr Amer 71 mL/min (>60); Estimated Creatinine Clearance 51.56 ml/min; Glucose 202 mg/dL (74-106); Sodium Level 139 mmol/L (136-145)
--- NOTE | 2021-03-10 03:53 | CPS ---
pt brought mask from home but not machine-pt ok with wearing 5 l/m via nc
[2021-03-10 03:55] LABS: Basophil 1 % (0-1); Eosinophil 0 % (0-5); Lymphocyte 6 % (19-41); Metamyelocyte 1 % (0-1); Monocyte 3 % (0-10); Myelocyte 4 % (0-0); Neutrophil-Band 6 % (0-5); Neutrophil-Segmented 78 % (47-70); Promyelocyte 1 % (0-0); Total Cells Counted 100 (MANUAL DIFF)
[2021-03-10 03:56] LABS: Platelet Estimate ADEQUATE (ADEQ)
[2021-03-10 03:58] LABS: Red Cell Morphology NORM C+C NORMAL (NORM C&C)
[2021-03-10 04:01] LABS: Absolute Lymphocyte Count 0.37 X10^3/uL (0.83-4.51); Absolute Neutrophil Count 5.2 X10^3/uL (2.0-7.7); Lymphocyte # 0.37 X10^3/ul (0.83-4.51); Neutrophil # 5.24 X10^3/uL (2.7-7.7)
[2021-03-10] MEDS: 0.9% Saline Lock 10 ML Syringe IV ×3 (05:04→18:06)
[2021-03-10] MEDS: Levothyroxine 125 MCG Tablet PO (05:04)
--- NOTE | 2021-03-10 05:55 | EKG12_ITS ---
Test Reason : AM Blood Pressure : / mmHG Vent. Rate : 088 BPM Atrial Rate : 088 BPM P-R Int : 284 ms QRS Dur : 108 ms QT Int : 368 ms P-R-T Axes : 022 -34 145 degrees QTc Int : 445 ms Sinus rhythm with 1st degree A-V block Left axis deviation Incomplete left bundle branch block Abnormal ECG Confirmed by RENE PEOPLES, SARAVANAN ([id number]), film or videotape editor ZULY PRAKASH ([id number]) on 03/11/2021 9:31:34 AM Referred By: VANESA Confirmed By:SARAVANAN LÓPEZ MD
[2021-03-10] MEDS: Ipratropium/Albuterol Sulfate 3 ML AMPUL.NEB INHALATION ×5 (07:30→22:55)
[2021-03-10] MEDS: Aspirin E.C. 81 MG Tablet PO (10:24)
[2021-03-10] MEDS: APIXABAN 2.5 MG TABLET PO ×2 (10:24→20:55)
[2021-03-10] MEDS: Pantoprazole Sodium 40 MG Tablet PO (10:25)
[2021-03-10] MEDS: guaiFENesin 1,200 MG Tablet 1200 MG PO ×2 (10:25→20:55)
[2021-03-10] MEDS: Furosemide 40 MG/4 ML Vial IV ×2 (10:25→18:06)
[2021-03-10] MEDS: Allopurinol 300 MG Tablet PO (10:25)
[2021-03-10] MEDS: Finasteride 5 MG Tablet PO (10:25)
--- NOTE | 2021-03-10 11:45 | CASEMGMT ---
LÓPEZ BLACKWELL assessment: Face to Face with patient for initial transition planning/care coordination assessment. RN CM introduced self and role at [facility], pt voices understanding and consents to assessment. Pt is sitting up in chair on 5L nc in no distress. Pt is A/Ox4 and answers all questions appropriately. Care providers, pharmacy, and demographics verified. Presentation: Pt c/o increased SOB and sats dropping despite being on 4L Admitting dx: CHF/COPD exac PCP: [place] Specialists: Duncan, pulbhupendra; Keith, cardio Preferred Pharmacy: [facility] Insurance: [employer] A/[employer], [place] Prescription Benefit: Yes Living Will/HPOA: Pt has LW/HPOA and is aware that they are on file at [facility]. Pt's , Kanika Plaza, is HPOA. LNOK: Kanika Plaza, ; Demetrius Plaza, son Living Arrangements: Pt lives with in 1 story home with basement and states no concerns at home. Pt is independent with ADL's. Transportation: Pt states drives self and states no transportation concerns. DME/HHC: Pt has the following DME: grab bars, rails, nebulizer, and 4L continuous home oxygen thru [employer]. Pt states no further DME needed. CM to follow for increased home oxygen need/new order. Pt states has had HHC in the past and has been to TCU s/p heart surgery in the past. Pt states no concerns with going home at time of discharge. 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 Pt states does not smoke cigarettes or drink ETOH. Pt voices no further concerns/needs. CM to follow for any further discharge planning/needs. Advised pt to ask for CM if any further questions/concerns/needs arise, voices understanding. Pt Goal: Home Plan: Home, pending home oxygen testing. SStaten LÓPEZ BLACKWELL
--- NOTE | 2021-03-10 12:06 | CASEMGMT ---
Pt qualifies for palliative referral per palliative screening tool and Dr. Mcdonald is agreeable. Referral faxed and order placed. Rolando DAWN CM
[2021-03-10 13:18] LABS: Pathologist Review Reviewed
[2021-03-10 13:19] LABS: Pathologist Review Reviewed
--- NOTE | 2021-03-10 13:31 | NURSING ---
This RN assuming care from LÓPEZ Morales.
--- NOTE | 2021-03-10 16:02 | PN.HOSP_ITS ---
Subjective Subjective Follow-up on acute on chronic respiratory failure/acute COPD exacerbation, acute exacerbation of heart failure with preserved EF: Patient was seen and examined. He feels improved. He is on 6 L of oxygen. He is usually on 4 L of oxygen at home. Denies any fever or chills. Objective Data Objective Data Vital Signs: Vital Signs Temp Pulse Resp BP Pulse Ox 98.1 F 88 20 H 121/83 H 96 03/10/21 14:12 03/10/21 14:12 03/10/21 14:12 03/10/21 14:12 03/10/21 14:12 Oxygen Flow Rate (L/min) 5 Oxygen Delivery Method Nasal Cannula Weight: 126.9 kg Body Mass Index (BMI) 35.5 Intake & Output: Intake and Output for Last 24 Hours 03/08/21 03/09/21 03/10/21 23:59 23:59 23:59 Intake Total 640 / 640 Output Total 1045 / 1045 Balance -405 / -405 Lab / Micro Data Result Diagrams: 03/10/21 03:10 03/10/21 03:10 Labs: Laboratory Results - last 24 hr 03/09/21 21:15: WBC 6.9, RBC 3.75 L, Hgb 11.4 L, Hct 35.8 L, MCV 95.5 H, MCH 30.4, MCHC 31.8 L, RDW Std Deviation 55.9 H, RDW Coeff of Thang 16.0 H, Plt Count 239, MPV 11.1, Neut % (Auto) Not Reportable, Absolute Neuts (auto) 4.8, Absolute Lymphs (auto) 1.67, Total Counted 100, Neutrophils % (Manual) 62, Band Neutrophils % 7 H, Lymphocytes % (Manual) 24, Monocytes % (Manual) 5, Metamyelocytes % 2 H, Diff Path Review Reviewed, Platelet Estimate ADEQUATE, RBC Morphology N CHROM, Anisocytosis 1+ 03/09/21 21:15: Sodium 140, Potassium 4.5, Chloride 104, Carbon Dioxide 28.0, Anion Gap 8, BUN 46 H, Creatinine 1.44 H, Estim Creat Clear Calc 44.40, Est GFR (MDRD) Af Amer 60, Est GFR (MDRD) Non-Af 50 L, BUN/Creatinine Ratio 31.9 H, Glucose 200 H, Calcium 8.9, Troponin I High Sens 48 03/09/21 21:15: B-Natriuretic Peptide 169.6 H 03/10/21 01:30: Troponin I High Sens 46 03/10/21 03:10: WBC 6.2, RBC 3.59 L, Hgb 10.8 L, Hct 34.2 L, MCV 95.3 H, MCH 30.1, MCHC 31.6 L, RDW Std Deviation 56.1 H, RDW Coeff of Thang 15.9 H, Plt Count 196, MPV 10.4, Neut % (Auto) Not Reportable, Absolute Neuts (auto) 5.2, Absolute Lymphs (auto) 0.37 L, Total Counted 100, Neutrophils % (Manual) 78 H, Band Neutrophils % 6 H, Lymphocytes % (Manual) 6 L, Monocytes % (Manual) 3, Eosinop hils % (Manual) 0, Basophils % (Manual) 1, Metamyelocytes % 1, Myelocytes % 4 H, Promyelocytes % 1 H, Diff Path Review Reviewed, Platelet Estimate ADEQUATE, RBC Morphology NORM C+C 03/10/21 03:10: Sodium 139, Potassium 4.0, Chloride 105, Carbon Dioxide 27.0, Anion Gap 7, BUN 45 H, Creatinine 1.24, Estim Creat Clear Calc 51.56, Est GFR (MDRD) Af Amer 71, Est GFR (MDRD) Non-Af 59 L, BUN/Creatinine Ratio 36.3 H, Glucose 202 H, Calcium 9.0 03/10/21 03:10: Troponin I High Sens 43 Micro: Microbiology 03/10/21 11:55 Mucosa - Nasopharyngeal Respiratory Panel (PCR) - Final 03/09/21 22:25 Nasal Secretion SARS-CoV-2 Antigen (Rapid) - Final Radiography Diagnostic Testing: Radiology Impression Chest X-Ray 03/09/21 21:10 IMPRESSION: Improved aeration of both lungs with cleared or decreased infiltrates previously seen in both lower lobes and perihilar regions. Mild to moderate chronic interstitial scarring and cystic emphysematous changes are still present. Trace bilateral pleural effusions are also still present. Electronically Signed: Jim Smith MD at 22:34 EDT , Service support , Echocardiogram 03/10/21 00:26 Interpretation Summary The study was technically difficult. Contrast injection was performed. Segmental dysfunction with preserved ejection fraction (see wall motion). The estimated ejection fraction is 55 %. Post operative septal motion. The left atrium is mildly enlarged. Trivial mitral valve insufficiency. Trivial tricuspid valve insufficiency. The aortic valve is not well visualized, however, based upon the 2D echocardiographic images obtained there appears to be thickening, calcification, and partial restriction of the aortic valve leaflets. Mild to moderate aortic stenosis. Trivial aortic valve insufficiency. Unable to estimate RV systolic pressure/pulmonary artery pressure due to technically difficult study. Diastolic function is indeterminate. ICD or pacer leads identified within the right atrium ICD or pacer leads identified within the right ventricle. Ordering Physician: Ashtyn Bo Referring Physician: MD Liliya Alexandro Performed By: Darren Meza RCS Physical Exam Narrative Physical exam: General: Alert, Oriented x3, Cooperative, No apparent distress, well developed HEENT: Atraumatic Oral: Moist Mucosa Neck: Supple Lungs: Diminished to auscultation, crackles at the bases, scattered wheezes Cardiovascular: HS I+II, regular, no murmurs Abdomen: Bowel Sounds Present, Soft, Non Tender Extremities:Bilateral leg edema +2 Assessment & Plan Assessment/Plan (1) COPD exacerbation: (2) CHF exacerbation: QUALIFIERS: Heart failure type: unspecified Qualified Code(s): I50.9 - Heart failure, unspecified (3) Acute on chronic respiratory failure: QUALIFIERS: Respiratory failure complication: hypoxia Qualified Code(s): J96.21 - Acute and chronic respiratory failure with hypoxia PLAN: 1. Acute on chronic respiratory failure secondary to probable acute COPD exacerbation/acute exacerbation of heart failure with preserved EF Not much changed overnight although patient feels subjectively improved Patient follows with outpatient pulmonology. 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 Acute exacerbation of heart failure preserved EF, EF of 55%, unable to determine diastolic function as well as pulmonary hypertension Admitting BNP of was nonsignificant but that could be because patient is slightly obese; clinically he looks like in heart failure History of CABG. troponins in this admission were not significant Continue IV Lasix 40 mg twice daily 3. AROLDO, continue on CPAP 4. Status post pacemaker/AICD/sternal nonunion Charges/Coding Visit Charges Inpatient E&M: 28944 Subs Hosp L2
[2021-03-10] MEDS: Tamsulosin HCl 0.4 MG Capsule PO (16:39)
[2021-03-10] MEDS: Azithromycin 250 MG Tablet 500 MG PO (16:39)
--- NOTE | 2021-03-10 17:07 | EX.PCM.CONCC ---
Assessment & Plan Assessment/Plan (1) Chronic hypoxemic respiratory failure: (2) CHF exacerbation: QUALIFIERS: Heart failure type: unspecified Qualified Code(s): I50.9 - Heart failure, unspecified (3) Scl-70 antibody positive: (4) Morbid obesity with BMI of 40.0-44.9, adult: PLAN: RECOMMENDATIONS: 1. Continue diuresis as tolerated 2. Agree with IV Solu-Medrol, likely wean steroids over the next 12 to 14 days 3. Encourage close monitoring of patient weight 4. Consider dietitian evaluation for low-salt diet education 5. Encourage incentive spirometer 6. Continue with BiPAP at baseline settings IMPRESSIONS: 1. Acute on chronic hypoxic respiratory failure Clinical suspicion for multifactorial etiology. Patient does have fluid in the fissure on the chest x-ray and lower extremity edema indicative of extra fluid. Unclear if patient has an element of pulmonary hypertension secondary to exertional hypoxemia. Stressed to the patient the importance of checking saturations closely. Okay to continue with steroids for now. Low clinical suspicion for pneumonia. Patient can likely be transitioned over to prednisone and weaned over the next 12 to 14 days. Patient would benefit from education on a low-salt diet by dietitian. Patient did have recent Covid pneumonia. 2. Acute on chronic diastolic CHF/history of pacemaker/aortic stenosis Complicates pulmonary management. Patient with a significant lower extremity edema. Patient states he follows a low-salt diet, but readily admits eating salad with cheese and trail bologna. Patient would benefit from a dietitian evaluation. Continue with IV Lasix. Patient advised to continue with daily weights. Doubt arrhythmia leading to onset. 3. AROLDO/hyperlipidemia/GERD/obesity/advanced age/history of SCL 70 antibody Complicates care, management, recovery and prognosis. Patient would benefit from BiPAP therapy with sleep. No need to change from his baseline settings from my perspective. Okay to continue with baseline medications. SCL 70 antibody is associated with pulmonary hypertension. Clinical suspicion for mixed pulmonary hypertension, but recent echo was not very impressive from a pulmonary artery pressure standpoint. Patient may require right heart catheterization in the future for quantification and clarification of lung pressures. 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 HPI Consult Data Date of Consult: 03/10/21 HPI Narrative HPI Narrative: HIRAM KRUEGER is a 85 M, with past medical history listed below and well-known to me from a previous hospitalization, who presents to [facility] on 03/09/2021 secondary to worsening shortness of breath. Patient had reported significant worsening over the previous 48 hours. Patient has been on 4 L nasal cannula since November and was diagnosed with Covid in December. Patient does have a history of COPD and uses a nebulizer at baseline. Patient has noted some weight gain and increased lower extremity edema prior to presentation. Patient does take Lasix 40 mg a day. Patient was recently taken off of amlodipine secondary to hypotension. Patient has never had a PVD or DVT, but is on Eliquis at baseline secondary to cardiac arrhythmia. Patient reportedly had had an increase in supplemental oxygen need from 4 L to as high as 6 L and still was desaturating. In the ER, patient was afebrile, normotensive, but requiring 5 L nasal cannula to maintain saturations. Laboratory data showed a white blood cell count of 6.9, hemoglobin of 11.4 and creatinine of 1.44. BNP was slightly elevated at 170. Chest x-ray showed improved aeration, but fluid in the fissure on the right. EKG showed sinus rhythm with first-degree AV block and an elevated QTC. Patient was admitted to the hospital and initiated on steroids, diuretics and supplemental oxygen. Patient also had an echocardiogram. Patient states he feels subjectively much improved compared to previous. Patient is denying any current chest pain, abdominal pain, nausea or vomiting. Patient feels the steroids have made a significant improvement. Patient states that subjectively he feels that when his steroids are discontinued he starts to go downhill after the next 24 to 48 hours. Patient is on budesonide at baseline. Patient also takes Eliquis and reports he is compliant. Review of systems otherwise negative from a constitutional, HEENT, respiratory, cardiovascular, GI, genitourinary, musculoskeletal, skin, neurologic, psychiatric and hematologic system unless stated above. [facility] Medical History Acute and chronic respiratory failure with hypoxia Acute blood loss anemia Atherosclerotic heart disease of [place] coronary artery without angina pectoris Atrial flutter Cellulitis Chest pain Chronic renal insufficiency CKD (chronic kidney disease) stage 3, GFR 30-59 ml/min COPD (chronic obstructive pulmonary disease) COVID Depression Dizziness Essential hypertension GERD (gastroesophageal reflux disease) GI bleed Gout Healthcare associated bacterial pneumonia (Unknown) HTN (hypertension) Hyperkalemia Hyperlipidemia Hypothyroidism Macrocytic anemia Mixed obstructive and restrictive ventilatory defect Morbid obesity with BMI of 40.0-44.9, adult NSTEMI (non-ST elevated myocardial infarction) Old myocardial infarction AROLDO (obstructive sleep apnea) Osteoarthritis Pacemaker Paroxysmal atrial fibrillation Pulmonary fibrosis Retinal artery occlusion Sepsis Sick sinus syndrome Home Medications levothyroxine 125 mcg PO DAILY 03/28/18 [History Last Taken 02/18/20] acetaminophen 1,000 mg PO Q6H PRN tab 07/25/18 [Rx Last Taken 01/14/21 12:00] allopurinol 300 mg tablet 300 mg PO DAILY 07/27/18 [History Last Taken 02/17/20] pantoprazole 40 mg tablet,delayed release 40 mg PO DAILY 08/16/18 [History Last Taken 02/18/20] rosuvastatin 10 mg tablet 10 mg PO QHS tab 02/11/20 [History Last Taken 02/17/20] dutasteride 0.5 mg PO DAILY 02/18/20 [History Last Taken 02/17/20] Mucus Relief ER 1,200 mg PO BID 01/14/21 [History Last Taken 01/14/21 08:00] aspirin 81 mg PO DAILY 01/14/21 [History Last Taken Unknown] ipratropium-albuterol 3 ml INHALATION Q4H 01/14/21 [History Last Taken Unknown] tamsulosin 0.4 mg PO DAILY@1730 01/14/21 [History Last Taken Unknown] budesonide 0.5 mg/2 mL suspension for nebulization 0.5 mg INHALATION BID #120 ml 01/27/21 [Rx Last Taken Unknown] furosemide 40 mg tablet 40 mg PO DAILY tab 02/25/21 [History Last Taken Unknown] apixaban [Eliquis] 2.5 mg PO DAILY 03/09/21 [History Last Taken Unknown] Allergy/AdvReac Type Severity Reaction Status Date / Time atorvastatin [From Lipitor] AdvReac MUSCLE PAIN Verified 03/09/21 20:51 Family History Father Cancer Lung Heart disease Myocardial infarction Surgical History History of bilateral hip replacements History of permanent cardiac pacemaker placement (02/18/20) S/P coronary artery bypass graft x 2 (~06/23/18) Social History housing: house Smoking Status: Former smoker how long ago did patient quit smokin years ago alcohol intake: never substance use type: does not use caffeine: No what type of physical activity do you participate in: walking frequency: daily ROS ROS Narrative See HPI Physical Exam Const alert, oriented x3 and no apparent distress General Appearance: cooperative HEENT normocephalic and head/scalp atraumatic Eyes conjunctivae normal and no scleral icterus Neck supple and no JVD General: trachea midline Chest Chest Narrative: Nonjunction of sternum Resp normal respiratory effort Effort and Inspection: able to speak in complete sentences and symmetric chest movement Auscultation: rales and diminished lung sounds; Negative for rhonchi or wheezes Cardio regular rate, regular rhythm, S1 normal heart sound, S2 normal heart sound and peripheral pulses 2+ throughout Heart Sounds: murmur systolic III/ decrescendo GI normal to inspection, nondistended, normoactive bowel sounds, soft to palpation and non-tender Extremity normal capillary refill General Extremity: edema bilateral (3+) lower extremity and no tenderness to palpation of joints or extremities Skin General Skin Exam: no breakdown and turgor normal Lesions: no lesions Rashes: no rashes Neuro oriented x3, moves all extremities, no focal motor deficits, no sensory deficits noted and gait normal Psych thought process normal, cooperative and affect normal Appearance: appropriate Lab / Micro Data Result Diagrams: 03/10/21 03:10 03/10/21 03:10 Labs: Laboratory Results - last 24 hr 03/09/21 21:15: WBC 6.9, RBC 3.75 L, Hgb 11.4 L, Hct 35.8 L, MCV 95.5 H, MCH 30.4, MCHC 31.8 L, RDW Std Deviation 55.9 H, RDW Coeff of Thang 16.0 H, Plt Count 239, MPV 11.1, Neut % (Auto) Not Reportable, Absolute Neuts (auto) 4.8, Absolute Lymphs (auto) 1.67, Total Counted 100, Neutrophils % (Manual) 62, Band Neutrophils % 7 H, Lymphocytes % (Manual) 24, Monocytes % (Manual) 5, Metamyelocytes % 2 H, Diff Path Review Reviewed, Platelet Estimate ADEQUATE, RBC Morphology N CHROM, Anisocytosis 1+ 03/09/21 21:15: Sodium 140, Potassium 4.5, Chloride 104, Carbon Dioxide 28.0, Anion Gap 8, BUN 46 H, Creatinine 1.44 H, Estim Creat Clear Calc 44.40, Est GFR (MDRD) Af Amer 60, Est GFR (MDRD) Non-Af 50 L, BUN/Creatinine Ratio 31.9 H, Glucose 200 H, Calcium 8.9, Troponin I High Sens 48 03/09/21 21:15: B-Natriuretic Peptide 169.6 H 03/10/21 01:30: Troponin I High Sens 46 03/10/21 03:10: WBC 6.2, RBC 3.59 L, Hgb 10.8 L, Hct 34.2 L, MCV 95.3 H, MCH 30.1, MCHC 31.6 L, RDW Std Deviation 56.1 H, RDW Coeff of Thang 15.9 H, Plt Count 196, MPV 10.4, Neut % (Auto) Not Reportable, Absolute Neuts (auto) 5.2, Absolute Lymphs (auto) 0.37 L, Total Counted 100, Neutrophils % (Manual) 78 H, Band Neutrophils % 6 H, Lymphocytes % (Manual) 6 L, Monocytes % (Manual) 3, Eosinophils % (Manual) 0, Basophils % (Manual) 1, Metamyelocytes % 1, Myelocytes % 4 H, Promyelocytes % 1 H, Diff Path Review Reviewed, Platelet Estimate ADEQUATE, RBC Morphology NORM C+C 03/10/21 03:10: Sodium 139, Potassium 4.0, Chloride 105, Carbon Dioxide 27.0, Anion Gap 7, BUN 45 H, Creatinine 1.24, Estim Creat Clear Calc 51.56, Est GFR (MDRD) Af Amer 71, Est GFR (MDRD) Non-Af 59 L, BUN/Creatinine Ratio 36.3 H, Glucose 202 H, Calcium 9.0 03/10/21 03:10: Troponin I High Sens 43 Micro: Microbiology 03/10/21 11:55 Mucosa - Nasopharyngeal Respiratory Panel (PCR) - Final 03/09/21 22:25 Nasal Secretion SARS-CoV-2 Antigen (Rapid) - Final Radiology Impression Chest X-Ray 03/09/21 21:10 IMPRESSION: Improved aeration of both lungs with cleared or decreased infiltrates previously seen in both lower lobes and perihilar regions. Mild to moderate chronic interstitial scarring and cystic emphysematous changes are still present. Trace bilateral pleural effusions are also still present. Electronically Signed: Jim Smith MD at 22:34 EDT , Service support , Echocardiogram 03/10/21 00:26 Interpretation Summary The study was technically difficult. Contrast injection was performed. Segmental dysfunction with preserved ejection fraction (see wall motion). The estimated ejection fraction is 55 %. Post operative septal motion. The left atrium is mildly enlarged. Trivial mitral valve insufficiency. Trivial tricuspid valve insufficiency. The aortic valve is not well visualized, however, based upon the 2D echocardiographic images obtained there appears to be thickening, calcification, and partial restriction of the aortic valve leaflets. Mild to moderate aortic stenosis. Trivial aortic valve insufficiency. Unable to estimate RV systolic pressure/pulmonary artery pressure due to technically difficult study. Diastolic function is indeterminate. ICD or pacer leads identified within the right atrium ICD or pacer leads identified within the right ventricle. Ordering Physician: Ashtyn Bo Referring Physician: MD Alexandro Lovell Performed By: Darren Meza RCS Charges/Coding Visit Charges Inpatient E&M: 79258 Init Hosp L3
[2021-03-10] MEDS: Rosuvastatin Calcium 5 MG Tablet 10 MG PO (20:55)
[2021-03-11] VITALS (7 sets, daily range): BP systolic 110–136; BP diastolic 64–72; PULSE 76–88; RESP 16–18; TEMP 36.5–36.6; O2SAT 90–94
[2021-03-11] MEDS: 0.9% Saline Lock 10 ML Syringe IV (05:15)
[2021-03-11] MEDS: Levothyroxine 125 MCG Tablet PO (05:15)
[2021-03-11] MEDS: Ipratropium/Albuterol Sulfate 3 ML AMPUL.NEB INHALATION ×2 (06:54→11:00)
[2021-03-11 07:20] LABS: Anion Gap 9 (5-15); BUN 51 mg/dL (7-18); BUN/Creat Ratio 33.3 RATIO (10-20); Chloride 101 mmol/L (98-107); Creatinine, Serum 1.53 mg/dL (0.70-1.30); EST Glomerular Filtration Rate 46 mL/min (>60); Est Glom Filt Rate - Afr Amer 56 mL/min (>60); Estimated Creatinine Clearance 41.79 ml/min; Glucose 268 mg/dL (74-106); Sodium Level 137 mmol/L (136-145)
--- NOTE | 2021-03-11 09:33 | PN.CC_ITS ---
Assessment & Plan Assessment/Plan (1) Chronic hypoxemic respiratory failure: (2) CHF exacerbation: QUALIFIERS: Heart failure type: unspecified Qualified Code(s): I50.9 - Heart failure, unspecified (3) Scl-70 antibody positive: (4) Morbid obesity with BMI of 40.0-44.9, adult: PLAN: RECOMMENDATIONS: 1. Continue diuresis as tolerated 2. Okay to transition to prednisone therapy, likely wean steroids over the next 12 to 14 days 3. Encourage close monitoring of patient weight 4. Consider dietitian evaluation for low-salt diet education 5. Encourage incentive spirometer 6. Encourage BiPAP at baseline settings with all sleep IMPRESSIONS: 1. Acute on chronic hypoxic respiratory failure Clinical suspicion for multifactorial etiology. Patient does have fluid in the fissure on the chest x-ray and lower extremity edema indicative of extra fluid. Unclear if patient has an element of pulmonary hypertension secondary to exertional hypoxemia. Stressed to the patient the importance of checking saturations closely. Okay to continue with steroids for now. Low clinical suspicion for pneumonia or COPD exacerbation. Patient can likely be transitioned over to prednisone and weaned over the next 12 to 14 days. Patient would benefit from education on a low-salt diet by dietitian. Patient did have recent Covid pneumonia. Patient has had significant improvement after initiation of IV Lasix. 2. Acute on chronic diastolic CHF/history of pacemaker/aortic stenosis Complicates pulmonary management. Patient with a significant lower extremity edema. Patient states he follows a low-salt diet, but readily admits eating salad with cheese and trail bologna. Patient would benefit from a dietitian evaluation. Continue with IV Lasix. Patient advised to continue with daily weights. Doubt arrhythmia leading to onset. 3. AROLDO/hyperlipidemia/GERD/obesity/advanced age/history of SCL 70 antibody Complicates care, management, recovery and prognosis. Patient would benef it from BiPAP therapy with sleep. No need to change from his baseline settings from my perspective. Okay to continue with baseline medications. SCL 70 antibody is associated with pulmonary hypertension. Clinical suspicion for mixed pulmonary hypertension, but recent echo was not very impressive from a pulmonary artery pressure standpoint. Patient may require right heart catheterization in the future for quantification and clarification of lung pressures. 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 Subjective Subjective Patient did well overnight. No acute issues were reported. Patient overall feels subjectively improved compared to previous. Patient feels his lower ext remity edema is resolved on the right with only minor changes on the left. Patient continues to have a cough, especially with his breathing treatments. Objective Data Objective Data Vital Signs: Vital Signs Temp Pulse Resp BP Pulse Ox 36.5 C L 78 16 110/64 94 03/11/21 07:37 03/11/21 07:37 03/11/21 07:37 03/11/21 07:37 03/11/21 07:37 Oxygen Flow Rate (L/min) 4 Oxygen Delivery Method Nasal Cannula Weight: 125.7 kg Body Mass Index (BMI) 35.5 Intake & Output: Intake and Output for Last 24 Hours 03/09/21 03/10/21 03/11/21 23:59 23:59 23:59 Intake Total 640 / 640 200 / 200 Output Total 1870 / 2070 1200 / 1200 Balance -1230 / -1430 -1000 / -1000 Lab / Micro Data Result Diagrams: 03/10/21 03:10 03/11/21 06:02 Labs: Laboratory Results - last 24 hr 03/09/21 21:15: Diff Path Review Reviewed 03/10/21 03:10: Diff Path Review Reviewed 03/11/21 06:02: Sodium 137, Potassium 4.0, Chloride 101, Carbon Dioxide 27.0, Anion Gap 9, BUN 51 H, Creatinine 1.53 H, Estim Creat Clear Calc 41.79, Est GFR (MDRD) Af Amer 56 L, Est GFR (MDRD) Non-Af 46 L, BUN/Creatinine Ratio 33.3 H, Glucose 268 H, Calcium 9.0 Micro: Microbiology 03/10/21 11:55 Mucosa - Nasopharyngeal Respiratory Panel (PCR) - Final 03/09/21 22:25 Nasal Secretion SARS-CoV-2 Antigen (Rapid) - Final Radiography Diagnostic Testing: Radiology Impression Echocardiogram 03/10/21 00:26 Interpretation Summary The study was technically difficult. Contrast injection was performed. Segmental dysfunction with preserved ejection fraction (see wall motion). The estimated ejection fraction is 55 %. Post operative septal motion. The left atrium is mildly enlarged. Trivial mitral valve insufficiency. Trivial tricuspid valve insufficiency. The aortic valve is not well visualized, however, based upon the 2D echocardiographic images obtained there appears to be thickening, calcification, and partial restriction of the aortic valve leaflets. Mild to moderate aortic stenosis. Trivial aortic valve insufficiency. Unable to estimate RV systolic pressure/pulmonary artery pressure due to technically difficult study. Diastolic function is indeterminate. ICD or pacer leads identified within the right atrium ICD or pacer leads identified within the right ventricle. ____ Ordering Physician: Ashtyn Bo Referring Physician: MD Liliya Alexandro Performed By: Darren Meza RCS Physical Exam Const alert, oriented x3 and no apparent distress General Appearance: cooperative HEENT normocephalic and head/scalp atraumatic Eyes conjunctivae normal and no scleral icterus Neck supple and no JVD General: trachea midline Chest Chest Narrative: Nonjunction of sternum Resp normal respiratory effort Effort and Inspection: able to speak in complete sentences and symmetric chest movement Auscultation: rales and diminished lung sounds; Negative for rhonchi or wheezes Cardio regular rate, regular rhythm, S1 normal heart sound, S2 normal heart sound and peripheral pulses 2+ throughout Heart Sounds: murmur systolic III/ decrescendo GI normal to inspection, nondistended, normoactive bowel sounds, soft to palpation and non-tender Extremity normal capillary refill General Extremity: edema bilateral (Trace on right with 2+ left) lower extremity and no tenderness to palpation of joints or extremities Skin General Skin Exam: no breakdown and turgor normal Lesions: no lesions Rashes: no rashes Neuro oriented x3, moves all extremities, no focal motor deficits, no sensory deficits noted and gait normal Psych thought process normal, cooperative and affect normal Appearance: appropriate Charges/Coding Visit Charges Inpatient E&M: 30166 Subs Hosp L2
--- NOTE | 2021-03-11 09:36 | CASEMGMT ---
Addendum entered by Audrey Estevez 03/11/21 11:03: Pt does not qualify for increased home oxygen at this time. Pt is aware that he should wear 6L w/ any exertion and pt declines need for any further resources. Pt voices no further questions/concerns/needs. Rolando DAWN CM Original Note: Per Calli at [facility] [place], pt's order is for 6L nc continuous. Audrey DAWN updated that pt will need tested on 6L at rest and 6L w/ ambulation, voices understanding. CM to follow. Rolando DAWN CM
--- NOTE | 2021-03-11 09:51 | PCM.DC ---
Discharge Instructions Diet Discharge Diet: Low fat / Low cholesterol, 6 Cup Fluid Restriction and 2000 mg Sodium Diet Activity Discharge Activity: Return to Normal Activity Follow Up Care Test Results: Test results from this visit will be discussed in further detail at your follow-up appointment, if applicable. Discharge Plan Admission Admit Date/Time: 03/10/21 00:03 Primary Reason for Your Visit: Acute on chronic respiratory failure/Acute COPD exacerbation Attending Provider: Nakita Mcdonald Primary Care Provider: Alexandro Lovell Consulting Providers: Demetrius Song ; Frank Aj ; Zenobia Raya CORRESPONDENCE RENEW CLERK Instructions Additional Instructions / Restrictions: Continue to take all your medications as prescribed. Take note of changes to your medication. Continue on a low-fat low-salt diet. Restrict your total fluid intake to less than 1500 mls/day. Weigh yourself every day. Let your doctor know when you gain more than 4 pounds of weight. Follow-up with your primary care doctor in 1 to 2 weeks. Follow-up with the grease refiner operator in 2 weeks. You would need repeat blood work to check on your kidney function within a week of discharge. Discharge Orders/Prescriptions Prescriptions: New furosemide 40 mg Tablet 40 mg PO BIDLX 30 Days Qty: 60 RF: 0 azithromycin 250 mg Tablet 500 mg PO Q24 3 Days Qty: 6 RF: 0 prednisone 10 mg tablet See Taper mg PO DAILY Qty: 30 RF: 0 Continued allopurinol 300 mg tablet 300 mg PO DAILY RF: 0 pantoprazole 40 mg tablet,delayed release (DR/EC) 40 mg PO DAILY RF: 0 rosuvastatin 10 mg tablet 10 mg PO QHS RF: 0 levothyroxine 125 MCG tablet 125 mcg PO DAILY RF: 0 acetaminophen 500 MG tablet 1,000 mg PO Q6H PRN (Reason: Mild Pain (-07/23)) RF: 0 dutasteride 0.5 MG capsule 0.5 mg PO DAILY RF: 0 ipratropium-albuterol 0.5 mg-3 mg(2.5 mg base)/3 mL solution for nebulization 3 ml inhalation Q4H RF: 0 aspirin 81 mg tablet,delayed release (DR/EC) 81 mg PO DAILY RF: 0 tamsulosin 0.4 MG capsule 0.4 mg PO DAILY@1730 RF: 0 Mucus Relief ER 1,200 mg tablet extended release 12hr 1,200 mg PO BID RF: 0 Eliquis 5 mg tablet 2.5 mg PO DAILY RF: 0 budesonide 0.5 mg/2 mL suspension for nebulization 0.5 mg inhalation BID Qty: 120 RF: 6 Discontinued furosemide [Lasix] 40 mg tablet 40 mg PO DAILY RF: 0 Referrals / Follow Up: Alexandro Lovell MD [Primary Care Provider] - Within 2 Weeks Zenobia Raya NP, CORRESPONDENCE RENEW CLERK-C [Nurse Practitioner] - Within 2 Weeks Disposition Disposition (needs filled in before D/C Order can be placed): Home, Self Care
--- NOTE | 2021-03-11 10:04 | PCM.DC.SUM ---
Providers Date of Admission: 03/10/21 Date of Discharge: 03/11/21 Primary Care Physician: Dr. Alexandro Lovell MD Consultations 03/10/21 12:28 Consult: Senior Sales Engineer / Pulmonary Medicine Routine Consulting Provider: Pulmonary Medicine [facility] [place] Reason for Consult: Patient request/COPD exacerbation EMERGENT Consult: No MD Notified: Yes Date Notified: 03/10/21 Time Notified: 12:28 Method of Notification: Text Reason For Visit: COPD, CHF EXAC. 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 Code(s): R76.8 - Other specified abnormal immunological findings in serum (4) Morbid obesity with BMI of 40.0-44.9, adult: Status: Chronic Code(s): E66.01 - Morbid (severe) obesity due to excess calories; Z68.41 - Body mass index [BMI] 40.0-44.9, adult Medications at Discharge Home Medications levothyroxine 125 mcg PO DAILY 03/28/18 acetaminophen 1,000 mg PO Q6H PRN tab 07/25/18 allopurinol 300 mg tablet 300 mg PO DAILY 07/27/18 pantoprazole 40 mg tablet,delayed release 40 mg PO DAILY 08/16/18 rosuvastatin 10 mg tablet 10 mg PO QHS tab 02/11/20 dutasteride 0.5 mg PO DAILY 02/18/20 Mucus Relief ER 1,200 mg PO BID 01/14/21 aspirin 81 mg PO DAILY 01/14/21 ipratropium-albuterol 3 ml INHALATION Q4H 01/14/21 tamsulosin 0.4 mg PO DAILY@1730 01/14/21 budesonide 0.5 mg/2 mL suspension for nebulization 0.5 mg INHALATION BID #120 ml 01/27/21 Eliquis 2.5 mg PO DAILY 03/09/21 azithromycin 500 mg PO Q24 3 Days #6 tab 03/11/21 furosemide 40 mg PO BIDLX 30 Days #60 tab 03/11/21 potassium chloride 10 meq PO DAILY #7 tab 03/11/21 prednisone See Taper PO DAILY #30 tab 03/11/21 Hospital Course Operations None Procedures None Summary of Care Provided Minutes Spent on Discharge: 45 Hospital Course: 85 y/o male with multiple comorbid disease who comes in with progressive shortness of breath ongoing for 3 days. Patient is usually supposed to be on 4 to 6 L of oxygen. He states that he usually wears 3-4. He has been increasing his oxygen slowly. He also admitted to worsening edema ongoing for 2 weeks. Patient was admitted to the PCU and managed at acute COPD exacerbation as well as acute exacerbation of heart failure preserved EF. His COVID-19 rapid antigen as well as respiratory panel was negative. Was managed on IV Lasix, steroids and breathing treatment. Patient also received education on CHF management and fluid restriction. He was seen by the chief marketing officer in this hospital stay. Patient continued to improve and was on 4 L of oxygen at discharge. He was discharged on prednisone taper as well as short course of azithromycin and Lasix. Repeat 2D echo showed an EF of 55%. He will follow up with pulmonology in the outpatient. Physical Exam Narrative Physical exam: General: Alert, Oriented x3, Cooperative, No apparent distress, well developed, obese, on 4 L of oxygen HEENT: Atraumatic Oral: Moist Mucosa Neck: Supple Lungs: Diminished to auscultation, few crackles at the bases Cardiovascular: HS I+II, regular, no murmurs Abdomen: Bowel Sounds Present, Soft, Non Tender Extremities:Bilateral leg edema +1-2 Weight / BMI Weight Weight: 125.7 kg Body Mass Index (BMI) 35.5 ABG / Lab / Microbiology Data Result Diagrams: 03/10/21 03:10 03/11/21 06:02 Laboratory: Laboratory Results - last 24 hr 03/09/21 21:15: Diff Path Review Reviewed 03/10/21 03:10: Diff Path Review Reviewed 03/11/21 06:02: Sodium 137, Potassium 4.0, Chloride 101, Carbon Dioxide 27.0, Anion Gap 9, BUN 51 H, Creatinine 1.53 H, Estim Creat Clear Calc 41.79, Est GFR (MDRD) Af Amer 56 L, Est GFR (MDRD) Non-Af 46 L, BUN/Creatinine Ratio 33.3 H, Glucose 268 H, Calcium 9.0 Microbiology: Microbiology 03/10/21 11:55 Mucosa - Nasopharyngeal Respiratory Panel (PCR) - Final 03/09/21 22:25 Nasal Secretion SARS-CoV-2 Antigen (Rapid) - Final Radiography Diagnostic Testing: Radiology Impression Echocardiogram 03/10/21 00:26 Interpretation Summary The study was technically difficult. Contrast injection was performed. Segmental dysfunction with preserved ejection fraction (see wall motion). The estimated ejection fraction is 55 %. Post operative septal motion. The left atrium is mildly enlarged. Trivial mitral valve insufficiency. Trivial tricuspid valve insufficiency. The aortic valve is not well visualized, however, based upon the 2D echocardiographic images obtained there appears to be thickening, calcification, and partial restriction of the aortic valve leaflets. Mild to moderate aortic stenosis. Trivial aortic valve insufficiency. Unable to estimate RV systolic pressure/pulmonary artery pressure due to technically difficult study. Diastolic function is indeterminate. ICD or pacer leads identified within the right atrium ICD or pacer leads identified within the right ventricle. Ordering Physician: Ashtyn Bo Referring Physician: MD Alexandro Lovell Performed By: Darren Meza RCS D/C Instructions Discharge Diet: Low fat / Low cholesterol, 6 Cup Fluid Restriction and 2000 mg Sodium Diet Meaningful Use Info Meaningful Use Diagnoses (Choose all that apply): CHF CHF CELY/ARB ordered at discharge?: No Reason CELY/ARB not ordered?: Not indicated Documented LVEF (%): 55 Discharge Plan Admission Admit Date/Time: 03/10/21 00:03 Primary Reason for Your Visit: Acute on chronic respiratory failure/Acute COPD exacerbation Attending Provider: Nakita Mcdonald Primary Care Provider: Alexandro Lovell Consulting Providers: Demetrius Song ; Frank Aj ; Zenobia Raya ADMINISTRATIVE SUPPORT COORDINATOR Instructions Additional Instructions / Restrictions: Continue to take all your medications as prescribed. Take note of changes to your medication. Continue on a low-fat low-salt diet. Restrict your total fluid intake to less than 1500 mls/day. Weigh yourself every day. Let your doctor know when you gain more than 4 pounds of weight. Follow-up with your primary care doctor in 1 to 2 weeks. Follow-up with the international logistics manager in 2 weeks. You would need repeat blood work to check on your kidney function within a week of discharge. Discharge Orders/Prescriptions Prescriptions: New furosemide 40 mg Tablet 40 mg PO BIDLX 30 Days Qty: 60 RF: 0 azithromycin 250 mg Tablet 500 mg PO Q24 3 Days Qty: 6 RF: 0 prednisone 10 mg tablet See Taper mg PO DAILY Qty: 30 RF: 0 potassium chloride 10 mEq tablet extended release 10 meq PO DAILY Qty: 7 RF: 0 Continued allopurinol 300 mg tablet 300 mg PO DAILY RF: 0 pantoprazole 40 mg tablet,delayed release (DR/EC) 40 mg PO DAILY RF: 0 rosuvastatin 10 mg tablet 10 mg PO QHS RF: 0 levothyroxine 125 MCG tablet 125 mcg PO DAILY RF: 0 acetaminophen 500 MG tablet 1,000 mg PO Q6H PRN (Reason: Mild Pain (-07/23)) RF: 0 dutasteride 0.5 MG capsule 0.5 mg PO DAILY RF: 0 ipratropium-albuterol 0.5 mg-3 mg(2.5 mg base)/3 mL solution for nebulization 3 ml inhalation Q4H RF: 0 aspirin 81 mg tablet,delayed release (DR/EC) 81 mg PO DAILY RF: 0 tamsulosin 0.4 MG capsule 0.4 mg PO DAILY@1730 RF: 0 Mucus Relief ER 1,200 mg tablet extended release 12hr 1,200 mg PO BID RF: 0 Eliquis 5 mg tablet 2.5 mg PO DAILY RF: 0 budesonide 0.5 mg/2 mL suspension for nebulization 0.5 mg inhalation BID Qty: 120 RF: 6 Discontinued furosemide [Lasix] 40 mg tablet 40 mg PO DAILY RF: 0 Referrals / Follow Up: Alexandro Lovell MD [Primary Care Provider] - Within 2 Weeks (Please call to setup an appointment. ) Zenobia Raya NP, ADMINISTRATIVE SUPPORT COORDINATOR-C [Nurse Practitioner] - 03/20/21 9:45 am Disposition Disposition (needs filled in before D/C Order can be placed): Home, Self Care Charges/Coding Visit Charges Inpatient E&M: 80890 Disch Hosp
--- NOTE | 2021-03-11 10:17 | CON.PCM.PA_ITS ---
Assessment & Plan Assessment/Plan (1) Acute on chronic respiratory failure: QUALIFIERS: Respiratory failure complication: hypoxia Qualified Code(s): J96.21 - Acute and chronic respiratory failure with hypoxia (2) CHF exacerbation: QUALIFIERS: Heart failure type: unspecified Qualified Code(s): I50.9 - Heart failure, unspecified (3) History of permanent cardiac pacemaker placement: PLAN: HIRAM KRUEGER, is a 85 M who was referred to [facility] due to presenting to [facility] with worsening shortness of breath and exacerbation of COPD on 03/09. Understanding of limitations in functional status. Diet and low sodium restriction discussed. Patient enjoys adding salt to his foods and eating at [employer] restaurants. Understanding that changes need to be made to avoid hospitalization, but unsure if willing to comply with diet recommendations or need to use 6 liters. Discussed Palliative services and symptoms managed. Seems pretty confident about managing diet and talking about a prophylactic antibiotic from Pulmonary to stay out of the hospital. At this time, Patient refuses Palliative services but requested business card to keep with his discharge paperwork. Thank you for the opportunity to participate in this patient's care, please do not hesitate to contact [facility] with any further questions or concerns. Palliative direct line is [phone]. Greater than 50% of F2F visit dedicated to education and counseling of palliative care services, medications, comorbid conditions and potential assistance with management. Start time: 0900 End time: 10:30 HPI Consult Data Date of Consult: 03/11/21 HPI Narrative HPI Narrative: HIRAM KRUEGER, is a 85 M who was referred to [facility] due to presenting to [facility] with worsening shortness of breath and exacerbation of COPD on 03/09. He had Covid-19 in December and has struggled to get back to respiratory baseline. He has been using his nebulizer but also struggling with extremity edema. He is not compliant with diet and adhering to a low salt diet. He takes Lasix 40mg daily and reported that his Norvasc was stopped about a week ago for low BP. History of 2 vessel bypass (June 2018)and is on Eliquis. r eported nonproductive cough with O2 was up to 5 liters from baseline of 4 and 6 liters during ambulation. Electrolytes show no marked abnormalities. Creatinine was a bit elevated but this really is in his baseline range. Troponin is 48. BNP is only 169. Chest x-ray shows chronic changes but no acute process and its improved since some of his prior imagery. History of heart failure preserved EF, EF of 55%. Was admitted and orders were to continue breathing treatments, IV Solu-Medrol, IV Lasix, add azithromycin. Continue to encourage use of incentive spirometer,CHF protocol with IV Lasix 4 0mg twice daily. 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 EKG 03/10 showed Sinus rhythm with 1st degree A-V block,Left axis deviation,Incomplete left bundle branch block. Patient to be discharged back home with oxygen at 4-6 liters, low fat/low cholesterol, 2000mg sodium restricted diet. Seen in PCU room, finishing breakfast. O2 per nasal cannula at 4 liters currently. Appears comfortable. No conversational dyspnea noted. lungs diminished, no wheezes or rhonchi currently. Denies cough or chest tightness. Denies any symptoms beyond shortness of breath with exertion. anxious to get home to help with farm activities. [facility] Medical History Acute and chronic respiratory failure with hypoxia Acute blood loss anemia Atherosclerotic heart disease of [place] coronary artery without angina pectoris Atrial flutter Cellulitis Chest pain Chronic renal insufficiency CKD (chronic kidney disease) stage 3, GFR 30-59 ml/min COPD (chronic obstructive pulmonary disease) COVID Depression Dizziness Essential hypertension GERD (gastroesophageal reflux disease) GI bleed Gout Healthcare associated bacterial pneumonia (Unknown) HTN (hypertension) Hyperkalemia Hyperlipidemia Hypothyroidism Macrocytic anemia Mixed obstructive and restrictive ventilatory defect Morbid obesity with BMI of 40.0-44.9, adult NSTEMI (non-ST elevated myocardial infarction) Old myocardial infarction AROLDO (obstructive sleep apnea) Osteoarthritis Pacemaker Paroxysmal atrial fibrillation Pulmonary fibrosis Retinal artery occlusion Sepsis Sick sinus syndrome Home Medications levothyroxine 125 mcg PO DAILY 03/28/18 [History Last Taken 02/18/20] acetaminophen 1,000 mg PO Q6H PRN tab 07/25/18 [Rx Last Taken 01/14/21 12:00] allopurinol 300 mg tablet 300 mg PO DAILY 07/27/18 [History Last Taken 02/17/20] pantoprazole 40 mg tablet,delayed release 40 mg PO DAILY 04/03/19 [History Last Taken 02/18/20] rosuvastatin 10 mg tablet 10 mg PO QHS tab 02/11/20 [History Last Taken 02/17/20] dutasteride 0.5 mg PO DAILY 02/18/20 [History Last Taken 02/17/20] Mucus Relief ER 1,200 mg PO BID 01/14/21 [History Last Taken 01/14/21 08:00] aspirin 81 mg PO DAILY 01/14/21 [History Last Taken Unknown] ipratropium-albuterol 3 ml INHALATION Q4H 01/14/21 [History Last Taken Unknown] tamsulosin 0.4 mg PO DAILY@1730 01/14/21 [History Last Taken Unknown] budesonide 0.5 mg/2 mL suspension for nebulization 0.5 mg INHALATION BID #120 ml 01/27/21 [Rx Last Taken Unknown] Eliquis 2.5 mg PO DAILY 03/09/21 [History Last Taken Unknown] azithromycin 500 mg PO Q24 3 Days #6 tab 03/11/21 [Rx Last Taken Unknown] furosemide 40 mg PO BIDLX 30 Days #60 tab 03/11/21 [Rx Last Taken Unknown] potassium chloride 10 meq PO DAILY #7 tab 03/11/21 [Rx Last Taken Unknown] prednisone See Taper PO DAILY #30 tab 03/11/21 [Rx Last Taken Unknown] Allergy/AdvReac Type Severity Reaction Status Date / Time atorvastatin [From Lipitor] AdvReac MUSCLE PAIN Verified 03/09/21 20:51 Family History Father Cancer Lung Heart disease Myocardial infarction Surgical History History of bilateral hip replacements History of permanent cardiac pacemaker placement (02/18/20) S/P coronary artery bypass graft x 2 (~06/23/18) Social History housing: house Smoking Status: Former smoker how long ago did patient quit smokin years ago alcohol intake: never substance use type: does not use caffeine: No what type of physical activity do you participate in: walking frequency: daily ROS Constitutional Constitutional: Reports systems reviewed and no addt'l complaints, except as documented Eyes Eyes: Denies blurry vision or change in vision Cardiovascular Cardiovascular: Reports leg edema; Denies chest pain at rest, chest pain with activity, cold extremities or cyanosis Respiratory/Chest Respiratory/Chest: Reports dry cough and dyspnea on exertion; Denies cough or inability to speak Gastrointestinal Gastrointestinal: Denies abdominal pain, anorexia or constipation Genitourinary Genitourinary: Reports none Musculoskeletal Musculoskeletal: Reports none Neurologic Neurologic: Denies abnormal gait, abnormal movements or abnormal speech Psychiatric Psychiatric: Denies anxiety, cognitive impairment or confusion Physical Exam Const alert, oriented x3 and no apparent distress General Appearance: cooperative and comfortable Nutritional Appearance: obese HEENT normocephalic and head/scalp atraumatic Head and Scalp: normal to inspection, normocephalic and atraumatic Nose: external nose normal and nares normal Mouth: oral and palatal mucosa normal and lips normal Teeth and Gingiva: dentures Eyes EOMs intact bilaterally General Eye: normal appearance of both eyes Neck full ROM and supple Resp normal respiratory effort and normal air movement Effort and Inspection: able to speak in complete sentences and symmetric chest movement Auscultation: diminished lung sounds bilateral Cardio regular rate, regular rhythm, S1 normal heart sound and S2 normal heart sound Heart Sounds: murmur Peripheral Pulses: posterior tibial pulses present GI normal to inspection, nondistended, normoactive bowel sounds, soft to palpation, non-tender and non-distended Auscultation: normoactive bowel sounds Extremity General Extremity: edema left (+1 to left foot/calf) Skin no rashes or lesions noted and no wounds General Skin Exam: scars other (mid sternal) Neuro oriented x3, CN's II-XII intact bilaterally and moves all extremities Psych Attitude: calm Activity / Motor Behavior: appropriate eye contact Speech: normal speech Thought Process: normal thought process
[2021-03-11] MEDS: Furosemide 40 MG Tablet PO (10:46)
[2021-03-11] MEDS: Allopurinol 300 MG Tablet PO (10:46)
[2021-03-11] MEDS: Azithromycin 250 MG Tablet 500 MG PO (10:47)
[2021-03-11] MEDS: guaiFENesin 1,200 MG Tablet 1200 MG PO (10:48)
[2021-03-11] MEDS: Pantoprazole Sodium 40 MG Tablet PO (10:48)
[2021-03-11] MEDS: Finasteride 5 MG Tablet PO (10:48)
[2021-03-11] MEDS: APIXABAN 2.5 MG TABLET PO (10:49)
[2021-03-11] MEDS: Aspirin E.C. 81 MG Tablet PO (10:50)
--- NOTE | 2021-03-11 12:08 | PHA.DC.MC ---
Pharmacy Service has performed discharge medication reconciliation and counseling for this patient. 1. AZITHROMYCIN 500MG PO Q24 FOR 3 DAYS 2. PREDNISONE 40MG PO DAILY FOR 3 DAYS, THEN 30MG X 3 DAYS, THEN 20MG X 3 DAYS, THEN 10MG X 3 DAYS The patient's discharge medication list was reviewed for discrepancies and discrepancies were resolved. Home Medications levothyroxine 125 mcg PO DAILY 03/28/18 acetaminophen 1,000 mg PO Q6H PRN tab 07/25/18 allopurinol 300 mg tablet 300 mg PO DAILY 07/27/18 pantoprazole 40 mg tablet,delayed release 40 mg PO DAILY 08/16/18 rosuvastatin 10 mg tablet 10 mg PO QHS tab 02/11/20 dutasteride 0.5 mg PO DAILY 02/18/20 Mucus Relief ER 1,200 mg PO BID 01/14/21 aspirin 81 mg PO DAILY 01/14/21 ipratropium-albuterol 3 ml INHALATION Q4H 01/14/21 tamsulosin 0.4 mg PO DAILY@1730 01/14/21 budesonide 0.5 mg/2 mL suspension for nebulization 0.5 mg INHALATION BID #120 ml 01/27/21 Eliquis 2.5 mg PO DAILY 03/09/21 azithromycin 500 mg PO Q24 3 Days #6 tab 03/11/21 furosemide 40 mg PO BIDLX 30 Days #60 tab 03/11/21 potassium chloride 10 meq PO DAILY #7 tab 03/11/21 prednisone See Taper PO DAILY #30 tab 03/11/21 The patient was counseled on the following discharge medications and changes in medications for homegoing were reviewed. The Reason for Use, instructions for use, and potential side effects were reviewed for all new medications. The patient's questions regarding all of their medications were answered. The patient was able to verbally demonstrate an understanding of their discharge medications.
--- NOTE | 2021-03-12 15:07 | CASEMGMT ---
LÓPEZ BLACKWELL Discharge Follow-up Phone Call: SKIPRohan: Andres Strata: 3 Call Date: 03/12/21 Discharge Date: 03/11/21 Time of Call: 1505 Duration: 3 min Admitting Diagnosis: COPD, CHF exac LÓPEZ BLACKWELL completed follow-up phone call after recent hospitalization. Patient states he is doing well and wearing his oxygen. Patient is following his fluid restrictions. Patient had no questions regarding discharge instructions. Patient states he has his follow-up appts scheduled. Patient had no further questions or concerns at this time.
== END 2021-03-11 13:19 | disposition home or self-care (01) | DRG 291 ==
LOC: ED 23:32 → PCU 03-10 00:19
PROVIDERS: Internal Medicine Critical Care Medicine; Nurse Practitioner Family; Admitting Provider Family Medicine; Emergency Provider Emergency Medicine; PCP Family Medicine; Visit Provider Internal Medicine
DX: I13.0 Hypertensive heart and chronic kidney disease with heart failure and stage 1 through stage 4 chronic kidney disease, or unspecified chronic kidney disease (principal); I50.31 Acute diastolic (congestive) heart failure; J96.21 Acute and chronic respiratory failure with hypoxia; Z68.41 Body mass index [BMI] 40.0-44.9, adult; J98.4 Other disorders of lung; E03.9 Hypothyroidism, unspecified; E66.01 Morbid (severe) obesity due to excess calories; J44.9 Chronic obstructive pulmonary disease, unspecified; R76.8 Other specified abnormal immunological findings in serum; E78.5 Hyperlipidemia, unspecified; F32.A Depression, unspecified; G47.33 Obstructive sleep apnea (adult) (pediatric); I25.2 Old myocardial infarction; I27.20 Pulmonary hypertension, unspecified; I35.0 Nonrheumatic aortic (valve) stenosis; I44.0 Atrioventricular block, first degree; I48.0 Paroxysmal atrial fibrillation; J84.10 Pulmonary fibrosis, unspecified; I49.5 Sick sinus syndrome; N18.31 Chronic kidney disease, stage 3a; D64.9 Anemia, unspecified; I25.10 Atherosclerotic heart disease of native coronary artery without angina pectoris; K21.9 Gastro-esophageal reflux disease without esophagitis; M10.9 Gout, unspecified; Z95.1 Presence of aortocoronary bypass graft; Z99.81 Dependence on supplemental oxygen; Z87.01 Personal history of pneumonia (recurrent); Z86.16 Personal history of COVID-19; Z87.19 Personal history of other diseases of the digestive system; Z86.19 Personal history of other infectious and parasitic diseases; Z79.01 Long term (current) use of anticoagulants; Z79.899 Other long term (current) drug therapy; Z87.891 Personal history of nicotine dependence
CPT/HCPCS: 36415; 71045; 80048; 83880; 84484; 85025; 87426; 87633; 93005; 93306; 94640; 97161; 97166; 97802; 97803; 99251; 99284; Q9957; A4216; C8929; G0463; J1940; J3490

== ENCOUNTER 2021-06-23 10:44 | Outpatient (CLI) | payer MEDICARE, BC, SELFPAY | END 2021-06-23 23:59 | disposition home or self-care (01) | PROVIDERS: PCP Family Medicine; Referring Provider Internal Medicine Critical Care Medicine; Visit Provider Internal Medicine Critical Care Medicine | DX: J47.9 Bronchiectasis, uncomplicated (principal) | CPT/HCPCS: 94667 ==

== ENCOUNTER 2021-07-24 04:16 | Inpatient (IN) | payer MEDICARE, BC, SELFPAY ==
[2021-07-24] VITALS (39 sets, daily range): BP systolic 50–110; BP diastolic 11–78; PULSE 100–118; RESP 12–41; TEMP 36.1–38.9; O2SAT 86–97; BMI 33.2; BMI 33.4
--- NOTE | 2021-07-24 04:32 | ED.RN ---
0425 PT PLACED ON BIPAP 16/10, FIO2 75%.
--- NOTE | 2021-07-24 04:39 | EKG12_ITS ---
Test Reason : CP Blood Pressure : / mmHG Vent. Rate : 142 BPM Atrial Rate : 107 BPM P-R Int : 232 ms QRS Dur : 114 ms QT Int : 422 ms P-R-T Axes : 042 -48 068 degrees QTc Int : 649 ms Sinus tachycardia with first degree AVB Left axis deviation Inferior infarct , age undetermined Marked ST abnormality, possible lateral subendocardial injury Abnormal ECG Confirmed by STEVE PEOPLES, MINOR ([id number]), editorial assistant ZULY PRAKASH ([id number]) on 07/27/2021 10:56:27 AM Referred By: ALVARO Confirmed By:MINOR WILSON MD
--- NOTE | 2021-07-24 04:45 | RAD_ITS ---
HISTORY: chest pain EXAMINATION/TECHNIQUE: XR Chest 1 View COMPARISON: AP chest x-ray from 03/09/21 FINDINGS: LINES/DEVICES: Left AICD in place. LUNGS: No overt pulmonary edema. Prominent and crowded bibasilar pulmonary opacities. Stable curvilinear scar like opacity lateral right upper lung. No sizable pleural effusion. No pneumothorax detected. MEDIASTINUM AND CARDIOVASCULAR STRUCTURES: Heart size within normal limits for imaging technique. Status post sternotomy and CABG. Atherosclerotic calcifications along the aorta. BONES AND SOFT TISSUES: Skeletal degenerative changes. RAD/Chest 1 View (Portable) IMPRESSION: Bibasilar atelectasis and/or infiltrate. at 0505 Reported and signed by: Alexandro Bonds MD Electronically Signed: Alexandro Bonds MD at 5:04 EST ,
[2021-07-24 04:50] LABS: Hematocrit 41.2 % (40-54); Hemoglobin 13.8 g/dL (13.0-16.5); Mean Corp Hgb Conc 33.5 g/dL (32-36); Mean Corpuscular Hgb 30.7 pg (27.0-32.0); Mean Corpuscular Volume 91.6 fL (80-94); Mean Platelet Vol. 10.7 fl (6.2-12.0); POSITIVE COUNT YES; POSITIVE DIFFERENTIAL YES; POSITIVE MORPHOLOGY YES; Platelet Count 246 K/mm3 (150-450); RBC Distribution Width CV 17.4 % (11.6-14.6); RBC Distribution Width SD 58.2 fl (35.1-43.9); White Blood Count 10.6 K/mm3 (4.4-11.0)
[2021-07-24] MEDS: fentaNYL 100 MCG/2 ML Ampul 50 MCG IV (04:52)
--- NOTE | 2021-07-24 04:52 | ED.VIS.CHEST ---
HPI History of Present Illness Chief Complaint: Chest Pain Informant: patient Narrative Narrative: Presents by EMS from home increasing dyspnea chest pressure for the past 2 days. Symptoms constant yesterday. States he forgot to sleep with his CPAP 2 evenings ago had persistent symptoms since then. He does not wear oxygen with his CPAP. History of two-vessel bypass [address] Parker. MA in the past leading to his bypass. History of CHF. Patient on aspirin and Plavix last dose yesterday morning. History of paroxysmal atrial fibrillation, no other anticoagulation medications. States cough with sputum since yesterday. No fevers. No headache. He did not take yesterday's Lasix. Reports his baseline weight is 251 pounds. Current weight today is 258 pounds. On arrival patient was hypoxic 86% on room air. Reported by nursing increasing work of breathing, BiPAP was placed on the patient prior to my evaluation. Patient states starting to feel better with the BiPAP. Status post aspirin 324 by EMS 25mcg of fentanyl and aerosol treatment. [facility] Medical History (Updated 07/24/21 @ 13:48 by Pearl WELSH, PA) Acute and chronic respiratory failure with hypoxia Acute blood loss anemia Atherosclerotic heart disease of [place] coronary artery without angina pectoris Atrial flutter Atrial flutter Cardiomyopathy Cellulitis Chest pain Chronic renal insufficiency CKD (chronic kidney disease) stage 3, GFR 30-59 ml/min COPD (chronic obstructive pulmonary disease) COVID Depression Dizziness Essential hypertension GERD (gastroesophageal reflux disease) GI bleed Gout Healthcare associated bacterial pneumonia (Unknown) Hyperkalemia Hyperlipidemia Hypothyroidism Macrocytic anemia Mixed obstructive and restrictive ventilatory defect Morbid obesity with BMI of 40.0-44.9, adult NSTEMI (non-ST elevated myocardial infarction) NSTEMI (non-ST elevated myocardial infarction) Old myocardial infarction AROLDO (obstructive sleep apnea) Osteoarthritis Pacemaker Paroxysmal atrial fibrillation Pulmonary fibrosis Retinal artery occlusion Sepsis Sick sinus syndrome Home Medications levothyroxine 125 mcg PO DAILY 03/28/18 [History Last Taken 02/18/20] acetaminophen 1,000 mg PO Q6H PRN tab 07/25/18 [Rx Last Taken 01/14/21 12:00] allopurinol 300 mg tablet 300 mg PO DAILY 07/27/18 [History Last Taken 02/17/20] pantoprazole 40 mg tablet,delayed release 40 mg PO DAILY 08/16/18 [History Last Taken 02/18/20] rosuvastatin 10 mg tablet 10 mg PO QHS tab 02/11/20 [History Last Taken 02/17/20] dutasteride 0.5 mg PO DAILY 02/18/20 [History Last Taken 02/17/20] Mucus Relief ER 1,200 mg PO BID 01/14/21 [History Last Taken 01/14/21 08:00] tamsulosin 0.4 mg PO DAILY@1730 01/14/21 [History Last Taken Unknown] budesonide 0.5 mg/2 mL suspension for nebulization 0.5 mg INHALATION BID #120 ml 01/27/21 [Rx Last Taken Unknown] Eliquis 2.5 mg PO DAILY 03/09/21 [History Last Taken Unknown] furosemide 40 mg PO BIDLX 30 Days #60 tab 03/11/21 [Rx Last Taken Unknown] azithromycin 250 mg tablet 250 mg PO DAILY 04/22/21 [History Last Taken Unknown] ipratropium 0.5 mg-albuterol 3 mg (2.5 mg base)/3 mL nebulization soln 3 ml INHALATION Q4H #180 ml 05/05/21 [Rx Last Taken Unknown] meclizine 12.5 mg tablet 12.5 mg PO TID PRN 06/04/21 [History Last Taken Unknown] Acapella #1 ea 06/23/21 [Rx Last Taken Unknown] aspirin 81 mg PO DAILY 07/24/21 [History Last Taken Unknown] prednisone 10 mg PO DAILY 07/24/21 [History Last Taken Unknown] Allergy/AdvReac Type Severity Reaction Status Date / Time atorvastatin [From Lipitor] AdvReac MUSCLE PAIN Verified 07/24/21 04:26 Family History (Updated 07/24/21 @ 06:[address] Suzie Francois MD) Father Cancer Lung Heart disease Myocardial infarction Mother Heart disease Surgical History History of bilateral hip replacements History of permanent cardiac pacemaker placement (02/18/20) S/P coronary artery bypass graft x 2 (~06/23/18) Social History housing: house Smoking Status: Former smoker how long ago did patient quit smokin years ago alcohol intake: never substance use type: does not use caffeine: No what type of physical activity do you participate in: walking frequency: daily ROS ROS ED Constitutional Constitutional ED: Denies chills, fever(s) or sweats Eyes Eyes: Denies change in vision ENT ENT ED: Denies dysphagia or sore throat Cardiovascular Cardiovascular: Reports chest pain and palpitations; Denies leg edema or racing heartbeat Respiratory/Chest Respiratory/Chest: Reports cough and dyspnea; Denies dyspnea on exertion Gastrointestinal Gastrointestinal: Denies abdominal pain, diarrhea, nausea or vomiting Genitourinary Genitourinary ED: Denies dysuria, hematuria or urinary frequency Musculoskeletal Musculoskeletal: Denies back pain, extremity pain or neck pain Integumentary Denies rash or wounds Neurologic Neurologic: Denies headache(s), paresthesias or weakness EXAM Physical Exam Const Vital Signs: 07/24/21 04:17 07/24/21 04:29 07/24/21 04:32 Temperature 97.0 F L Temperature Source Temporal Pulse Rate 118 H 114 H Respiratory Rate 36 H 41 H Respiratory Pattern Tachypnea Tachypnea Blood Pressure 97/61 Blood Pressure Mean 73 Pulse Ox 86 90 Oxygen Delivery Method Room Air Fraction of Inspired Oxygen (FIO2) 75 07/24/21 04:44 Temperature Temperature Source Pulse Rate Respiratory Rate Respiratory Pattern Blood Pressure Blood Pressure Mean Pulse Ox Oxygen Delivery Method Bi-pap Fraction of Inspired Oxygen (FIO2) Positive well nourished and well developed Constitutional Narrative: BiPAP speaking in short sentences some accessory muscle use. General Appearance ED: well developed HEENT Reports moist mucous membranes normocephalic and atraumatic Eyes PERRL, EOMs intact bilaterally and conjunctivae normal General Eye ED: Yes normal appearance of both eyes Neck no lymphadenopathy and supple General: Negative for tenderness Chest Wall Chest Narrative: Midline chest scar. Chest: Negative for tenderness Resp normal air movement Resp Narrative: Increasing accessory muscle use, Effort and Inspection: symmetric chest movement Auscultation: diminished lung sounds; Negative for rales Cardio regular rhythm and no murmurs Rate: tachycardic Peripheral Pulses: pulses 2+ throughout GI normal to inspection, nondistended, normoactive bowel sounds and non-tender Palpation: Negative for guarding or rebound tenderness present Back/Spine no CVA tenderness and no thoracic nor lumbar tenderness Extremity normal to inspection Extremity Narrative: Minimum lower extremity edema. General Extremety ED: Yes edema; Negative for tenderness General Extremity: edema Neuro oriented x3 and no sensory deficits noted Sensorium / Orientation: awake and alert Skin no rashes or lesions noted and no wounds MDM MDM MDM Narrative Medical decision making narrative: Patient hypoxic on arrival accessory muscle use continued on a BiPAP. EKG reporting undetermined rhythm, close evaluation by myself notes P waves with first-degree AV block chronic changes from previous EKG with artifact on the lateral leads. Similar first-degree AV block on old EKG. Cardiac work-up initiated. I discussed with patient DNR status, I initially did not want intubation however did want CPR, discussed typically we need both if critical therefore he is full code currently. 0545: Patient maintained on BiPAP clinically was better chest pressure was improved. Chest x-ray reviewed by myself and read by radiology concerns for atelectasis versus bilateral infiltrate. He is reported productive sputum since yesterday. With his tachycardia I did add blood cultures and lactic acid. Will cover for pneumonia with the sputum Rocephin Zithromax was ordered. Additional labs noted initial troponin returned at 128 meeting NSTEMI criteria he was complaining of chest pressure and heaviness for the past 2 days. He was given aspirin by EMS. He has coronary history. Lab work with his glucose returned at 686 his anion gap is 18 I did add acetones. Evaluation records had an echocardiogram February 2021 with a EF of 55%. Blood pressure high 80s systolic on reevaluation he is ordered for 1 L of fluids. Concern likely DKA secondary to NSTEMI. He does report his blood glucose being elevated the last few days. Sodium 125 however corrected for glucose is 134. BNP returned at 438. He does have a pacemaker for history of sick sinus syndrome. I did speak with electronic parts designer on-call Dr. Ballesteros updated patient's history and findings agree with heparin drip at this time. He will follow and see the patient in the hospital. Hospitalist is on page for discussion for ICU placement. We will plan on starting insulin drip after initial liter of fluids. 0605: After discussion with Dr. Francois, no diabetes noted in his records, per spouse and patient prediabetic that is diet-controlled. Discussion of his Eliquis dosing, he did not take any the medications yesterday today therefore we will continue the heparin drip protocol. Patient will be admitted to the ICU. 0621: Acetone did return moderately high. With the gap acidosis and hyperglycemia. Patient meets criteria for DKA. Insulin infusion ordered to be given after the initial normal saline bolus. 0645: Lactic acid returned at 3.5. Continue on IV fluids. He does meet severe sepsis criteria with treatment of pneumonia. Patient is going to the ICU. Lab Data Attestation: I reviewed the patient's lab results. Labs: Laboratory Results - last 24 hr 07/24/21 07/24/21 07/24/21 04:30 04:30 04:30 WBC 10.6 RBC 4.50 L Hgb 13.8 Hct 41.2 MCV 91.6 MCH 30.7 MCHC 33.5 RDW Std Deviation 58.2 H RDW Coeff of Thang 17.4 H Plt Count 246 MPV 10.7 Neut % (Auto) Not Reportable Absolute Neuts (auto) 3.1 Absolute Lymphs (auto) 0.53 L Total Counted 100 Neutrophils % (Manual) 9 L Band Neutrophils % 20 H Lymphocytes % (Manual) 5 L Monocytes % (Manual) 8 Metamyelocytes % 53 H Myelocytes % 5 H Differential Comment Diff Path Review Reviewed Platelet Estimate ADEQUATE RBC Morphology NORM C+C PT Cancelled INR Cancelled APTT Cancelled Sodium 125 L Potassium 4.5 Chloride 90 L Carbon Dioxide 17.0 L Anion Gap 18 H BUN 91 H Creatinine 3.34 H Estim Creat Clear Calc 19.14 Est GFR (MDRD) Af Amer 23 L Est GFR (MDRD) Non-Af 19 L BUN/Creatinine Ratio 27.2 H Glucose 686 H* Lactic Acid Calcium 8.9 Phosphorus Magnesium Troponin I High Sens 128 H* B-Natriuretic Peptide Acetone Level 07/24/21 07/24/21 07/24/21 04:30 04:30 04:30 WBC RBC Hgb Hct MCV MCH MCHC RDW Std Deviation RDW Coeff of Thang Plt Count MPV Neut % (Auto) Absolute Neuts (auto) Absolute Lymphs (auto) Total Counted Neutrophils % (Manual) Band Neutrophils % Lymphocytes % (Manual) Monocytes % (Manual) Metamyelocytes % Myelocytes % Differential Comment Diff Path Review Platelet Estimate RBC Morphology PT INR APTT Sodium Potassium Chloride Carbon Dioxide Anion Gap BUN Creatinine Estim Creat Clear Calc Est GFR (MDRD) Af Amer Est GFR (MDRD) Non-Af BUN/Creatinine Ratio Glucose Lactic Acid 3.5 H* Calcium Phosphorus Magnesium Troponin I High Sens B-Natriuretic Peptide 438.5 H Acetone Level MODERATE H 07/24/21 07/24/21 04:30 05:00 WBC RBC Hgb Hct MCV MCH MCHC RDW Std Deviation RDW Coeff of Thang Plt Count MPV Neut % (Auto) Absolute Neuts (auto) Absolute Lymphs (auto) Total Counted Neutrophils % (Manual) Band Neutrophils % Lymphocytes % (Manual) Monocytes % (Manual) Metamyelocytes % Myelocytes % Differential Comment Diff Path Review Platelet Estimate RBC Morphology PT 23.4 H INR 2.2 APTT 36.1 Sodium Potassium Chloride Carbon Dioxide Anion Gap BUN Creatinine Estim Creat Clear Calc Est GFR (MDRD) Af Amer Est GFR (MDRD) Non-Af BUN/Creatinine Ratio Glucose Lactic Acid Calcium Phosphorus 6.8 H Magnesium 1.9 Troponin I High Sens B-Natriuretic Peptide Acetone Level Radiography Diagnostic Testing: Clinical Impression(s) from Imaging Studies Chest X-Ray 07/24/21 04:45 IMPRESSION: Bibasilar atelectasis and/or infiltrate. at 0505 Reported and signed by: Alexandro Bonds MD Electronically Signed: Alexandro Bonds MD at 5:04 EST , EKG Initial EKG: Attestation: I personally reviewed and interpreted this EKG as follows: Comments: Sinus tachycardia rate of 142, no ST changes, T wave inversion in aVL, left axis deviation with interventricular delay at 114. There is artifact on the lateral leads. First-degree AV block. EKG from February 2021 notes AV block with similar findings on EKG exception of the tachycardia. Critical Care Time Critical Care Time: Yes Critical care time (excluding procedures): 30-74 minutes, Discussing w/Patient &/or Family/Analytic Manager, Discussing w/Consultants, Arranging Admission or Transfer, Performing Direct Patient Care at Bedside and - (40 minutes) Discharge Plan Dx/Rx/DC Orders Clinical Impression: NSTEMI (non-ST elevated myocardial infarction), AROLDO (obstructive sleep apnea), Community acquired pneumonia, DKA (diabetic ketoacidosis), MIRANDA (acute kidney injury), Acute hyponatremia, Severe sepsis Disposition Disposition: Acute Care Hospital [facility]
[2021-07-24 05:10] LABS: Differential Indicated MANUAL DIFF
[2021-07-24 05:22] LABS: Anion Gap 18 (5-15); BUN 91 mg/dL (7-18); BUN/Creat Ratio 27.2 RATIO (10-20); Calcium,Total 8.9 mg/dL (8.5-10.1); Chloride 90 mmol/L (98-107); Creatinine, Serum 3.34 mg/dL (0.70-1.30); EST Glomerular Filtration Rate 19 mL/min (>60); Est Glom Filt Rate - Afr Amer 23 mL/min (>60); Estimated Creatinine Clearance 19.14 ml/min; Glucose 686 mg/dL (74-106); Potassium 4.5 mmol/L (3.5-5.1); Sodium Level 125 mmol/L (136-145); Troponin-I HS 128 pg/mL (3.0-78.0)
[2021-07-24 05:31] LABS: BNP,B-Type NATRIURETIC PEPTIDE 438.5 pg/mL (0-100)
[2021-07-24 05:40] LABS: Lymphocyte 5 % (19-41); Metamyelocyte 53 % (0-1); Monocyte 8 % (0-10); Myelocyte 5 % (0-0); Neutrophil-Band 20 % (0-5); Neutrophil-Segmented 9 % (47-70); Total Cells Counted 100 (MANUAL DIFF)
[2021-07-24 05:42] LABS: International Normalized Ratio 2.2; Prothrombin Time (Protime)PT. 23.4 SECONDS (11.7-14.9)
[2021-07-24 05:43] LABS: Partial Thromboplast Time 36.1 Seconds (24.1-36.2)
[2021-07-24 05:44] LABS: Platelet Estimate ADEQUATE (ADEQ); Red Cell Morphology NORM C+C NORMAL (NORM C&C)
[2021-07-24] MEDS: 0.9% Normal Saline 1,000 ML 999 ML IV (05:46)
[2021-07-24 05:53] LABS: Lactic Acid 3.5 mmol/L (0.4-1.9)
--- NOTE | 2021-07-24 06:04 | PCM.HP.STD ---
HPI - General General Date of Admission: 07/24/21 Date of Service: 07/24/21 Chief Complaint: Chest pain, Dyspnea, Respiratory Failure HPI Narrative The patient is an 85 y/o M w/ PMHx: Diabetes mellitus type II, Former Tobacco use, CKD stage III unclear subtype, HTN, HLD, CAD s/p OH and CABG x 2, Hx Sick sinus syndrome s/p pacemaker placement, PAF, AROLDO, Chronic anemia, Chronic hypoxic respiratory failure secondary to underlying COPD, pulmonary fibrosis following with Dr. Song 87% on room air without any oxygen, Scl-70 Antibody Positive, Hx COVID illness who presents to the [facility] ED on 07/24/21 with history of ongoing chest discomfort described as a pressure, midsternal without radiation over the last 48 hours however became more constant the day prior, rates it 4-5/10 in severity with worsening associated dyspnea and upon going to bed the evening prior he forgot to connect his oxygen to his CPAP machine and awoke with significant dyspnea although he does also admit recent mildly productive cough but no fevers or chills. Given significant work of breathing and accessory muscle usage with ongoing dyspnea prompted EMS evaluation. Work-up in the ED included T 97, heart rate 119, BP 97/61, respiratory rate 36, initially 86% on room air transition to BiPAP noted to be 90% on FiO2 of 75%, CBC with WC 10.6, hemoglobin 13.8, platelet 246 with increased banded neutrophils, coags with INR 2.2, PT 23.4, PTT 36.1, BMP with sodium 125, chloride 90, carbon oxide 17, anion gap 18, BUN/creatinine 91/3.34, glucose 686, lactic acid 3.5, BNP 438.5, initial troponin 128 with repeat pending, chest x-ray with bilateral bibasilar atelectasis and/or infiltrate, EKG with sinus tachycardia with no acute evidence of ischemia. ED physician did discuss case with health care manager who requested heparin drip initiation. [facility] Medical History Acute and chronic respiratory failure with hypoxia Acute blood loss anemia Atherosclerotic heart disease of [place] coronary artery without angina pectoris Atrial flutter Atrial flutter Cellulitis Chest pain Chronic renal insufficiency CKD (chronic kidney disease) stage 3, GFR 30-59 ml/min COPD (chronic obstructive pulmonary disease) COVID Depression Dizziness Essential hypertension GERD (gastroesophageal reflux disease) GI bleed Gout Healthcare associated bacterial pneumonia (Unknown) Hyperkalemia Hyperlipidemia Hypothyroidism Macrocytic anemia Mixed obstructive and restrictive ventilatory defect Morbid obesity with BMI of 40.0-44.9, adult NSTEMI (non-ST elevated myocardial infarction) Old myocardial infarction AROLDO (obstructive sleep apnea) Osteoarthritis Pacemaker Paroxysmal atrial fibrillation Pulmonary fibrosis Retinal artery occlusion Sepsis Sick sinus syndrome Home Medications levothyroxine 125 mcg PO DAILY 03/28/18 [History Last Taken 02/18/20] acetaminophen 1,000 mg PO Q6H PRN tab 07/25/18 [Rx Last Taken 01/14/21 12:00] allopurinol 300 mg tablet 300 mg PO DAILY 07/27/18 [History Last Taken 02/17/20] pantoprazole 40 mg tablet,delayed release 40 mg PO DAILY 08/16/18 [History Last Taken 02/18/20] rosuvastatin 10 mg tablet 10 mg PO QHS tab 02/11/20 [History Last Taken 02/17/20] dutasteride 0.5 mg PO DAILY 02/18/20 [History Last Taken 02/17/20] Mucus Relief ER 1,200 mg PO BID 01/14/21 [History Last Taken 01/14/21 08:00] tamsulosin 0.4 mg PO DAILY@1730 01/14/21 [History Last Taken Unknown] budesonide 0.5 mg/2 mL suspension for nebulization 0.5 mg INHALATION BID #120 ml 01/27/21 [Rx Last Taken Unknown] Eliquis 2.5 mg PO DAILY 03/09/21 [History Last Taken Unknown] furosemide 40 mg PO BIDLX 30 Days #60 tab 03/11/21 [Rx Last Taken Unknown] azithromycin 250 mg tablet 250 mg PO DAILY 04/22/21 [History Last Taken Unknown] ipratropium 0.5 mg-albuterol 3 mg (2.5 mg base)/3 mL nebulization soln 3 ml INHALATION Q4H #180 ml 05/05/21 [Rx Last Taken Unknown] meclizine 12.5 mg tablet 12.5 mg PO TID PRN 06/04/21 [History Last Taken Unknown] Acapella #1 ea 06/23/21 [Rx Last Taken Unknown] aspirin 81 mg PO DAILY 07/24/21 [History Last Taken Unknown] prednisone 10 mg PO DAILY 07/24/21 [History Last Taken Unknown] Allergy/AdvReac Type Severity Reaction Status Date / Time atorvastatin [From Lipitor] AdvReac MUSCLE PAIN Verified 07/24/21 04:26 Family History (Updated 07/24/21 @ 06:[address] Suzie Francois MD) Father Cancer Lung Heart disease Myocardial infarction Mother Heart disease Surgical History History of bilateral hip replacements History of permanent cardiac pacemaker placement (02/18/20) S/P coronary artery bypass graft x 2 (~06/23/18) Social History housing: house Smoking Status: Former smoker how long ago did patient quit smokin years ago alcohol intake: never substance use type: does not use caffeine: No what type of physical activity do you participate in: walking frequency: daily ROS ROS Narrative Admission Review of Systems: CONSTITUTIONAL: No weight loss, fever, chills, + weakness or fatigue. HEENT: Eyes: No visual loss, blurred vision, double vision or yellow sclerae. Ears, Nose, Throat: No hearing loss, sneezing, congestion, runny nose or sore throat. SKIN: No rash or itching, lesions, wounds. CARDIOVASCULAR: + Chest pain, No palpitations, edema, orthopnea, syncopal events. RESPIRATORY: + Shortness of breath, cough with mild sputum, tight without specifically noted wheezing, No hemoptysis. GASTROINTESTINAL: No anorexia, nausea, vomiting or diarrhea, abdominal pain, melena, BRBPR. GENITOURINARY: No dysuria, frequency, urgency or retention. NEUROLOGICAL: No headache, dizziness, syncope, paralysis, ataxia, numbness or tingling in the extremities, focal weakness, change in bowel or bladder control, seizure. MUSCULOSKELETAL: + muscle, back pain, joint pain or stiffness. HEMATOLOGIC: + anemia, bleeding or bruising. LYMPHATICS: No enlarged nodes. No history of splenectomy. PSYCHIATRIC: + history of depression or anxiety. ENDOCRINOLOGIC: No reports of sweating, cold or heat intolerance. No polyuria or polydipsia. ALLERGIES: + history of asthma, hives, eczema or rhinitis. Vital Signs Vital Signs Vital Signs: 07/24/21 04:17 07/24/21 04:29 07/24/21 04:32 Temperature 97.0 F L Temperature Source Temporal Pulse Rate 118 H 114 H Respiratory Rate 36 H 41 H Respiratory Pattern Tachypnea Tachypnea Blood Pressure 97/61 Blood Pressure Mean 73 Pulse Ox 86 90 Oxygen Delivery Method Room Air Fraction of Inspired Oxygen (FIO2) 75 07/24/21 04:44 Temperature Temperature Source Pulse Rate Respiratory Rate Respiratory Pattern Blood Pressure Blood Pressure Mean Pulse Ox Oxygen Delivery Method Bi-pap Fraction of Inspired Oxygen (FIO2) Weight Weight: 258 lb 13.163 oz Body Mass Index (BMI) 33.2 Physical Exam Narrative Physical Examination: General: Awakens to stimuli, somewhat alert, oriented to self and place but difficult given BiPAP in place, evidence of respiratory distress with increased work of breathing accessory muscle usage. Skin: Normal color, normal turgor, no icterus, no cyanosis. HEENT: AT/NC, EOMI, PERRLA, moderately dry MM, BiPAP in place, no carotid bruits or JVD noted; however, difficult exam given thickened neck. Lungs: Significantly diminished throughout, greater bases, increased work of breathing with accessory muscle usage, evidence of distress, BiPAP in place, no rales, ronchi or wheezing. Heart: Currently mildly tachycardic with regular rhythm; no gallop, rub audible. Abdomen: Soft, obese, NTTP, ND, distant normal BS, no obvious HSM; however, habitus makes exam difficult. Extremities: No cyanosis, no clubbing, minimal bilateral ankle edema. Neurological: Patient awake, alert, oriented as noted, cognitive function decreased from baseline; pupils equally reactive to light and accommodation, cranial nerves grossly normal, moving all 4 extremities, no focal deficits, strength severely global decrease secondary to acute presentation. Psychiatric: Affect appears fatigued, ill-appearing, evidence of respiratory distress, no acute evidence of depressive or anxiety feelings. Results Lab / Micro Data Result Diagrams: 07/24/21 04:30 07/24/21 04:30 Labs: Laboratory Results - last 24 hr 07/24/21 04:30: WBC 10.6, RBC 4.50 L, Hgb 13.8, Hct 41.2, MCV 91.6, MCH 30.7, MCHC 33.5, RDW Std Deviation 58.2 H, RDW Coeff of Thang 17.4 H, Plt Count 246, MPV 10.7, Neut % (Auto) Not Reportable, Total Counted 100, Neutrophils % (Manual) 9 L, Band Neutrophils % 20 H, Lymphocytes % (Manual) 5 L, Monocytes % (Manual) 8, Metamyelocytes % 53 H, Myelocytes % 5 H, Differential Comment , Diff Path Review May foll, Platelet Estimate ADEQUATE, RBC Morphology NORM C+C 07/24/21 04:30: PT Cancelled, INR Cancelled, APTT Cancelled 07/24/21 04:30: Sodium 125 L, Potassium 4.5, Chloride 90 L, Carbon Dioxide 17.0 L, Anion Gap 18 H, BUN 91 H, Creatinine 3.34 H, Estim Creat Clear Calc 19.14, Est GFR (MDRD) Af Amer 23 L, Est GFR (MDRD) Non-Af 19 L, BUN/Creatinine Ratio 27.2 H, Glucose 686 H*, Calcium 8.9, Troponin I High Sens 128 H* 07/24/21 04:30: B-Natriuretic Peptide 438.5 H 07/24/21 04:30: Lactic Acid 3.5 H* 07/24/21 05:00: PT 23.4 H, INR 2.2, APTT 36.1 Micro: Microbiology 07/24/21 04:44 Nasal Secretion SARS-CoV-2 Antigen (Rapid) - Final Radiology Impression Chest X-Ray 07/24/21 04:45 IMPRESSION: Bibasilar atelectasis and/or infiltrate. at 0505 Reported and signed by: Alexandro Bonds MD Electronically Signed: Alexandro Bonds MD at 5:04 EST , Assessment & Plan Assessment/Plan (1) DKA (diabetic ketoacidosis): QUALIFIERS: Diabetes mellitus complication detail: without coma Diabetes mellitus type: type 2 Qualified Code(s): E11.10 - Type 2 diabetes mellitus with ketoacidosis without coma (2) Community acquired pneumonia: QUALIFIERS: Laterality: unspecified laterality Qualified Code(s): J18.9 - Pneumonia, unspecified organism (3) MIRANDA (acute kidney injury): (4) Acute hypoxemic respiratory failure: PLAN: The patient is an 85 y/o M w/ PMHx: Diabetes mellitus type II, Former Tobacco use, CKD stage III unclear subtype, HTN, HLD, CAD s/p OH and CABG x 2, Hx Sick sinus syndrome s/p pacemaker placement, PAF, AROLDO, Chronic anemia, Chronic hypoxic respiratory failure secondary to underlying COPD, pulmonary fibrosis following with Dr. Song 87% on room air without any oxygen, Scl-70 Antibody Positive, Hx COVID illness who presents to the [facility] ED on 07/24/21 with history of ongoing chest discomfort described as a pressure, midsternal without radiation over the last 48 hours however became more constant the day prior with worsening associated dyspnea and upon going to bed the evening prior he forgot to connect his oxygen to his CPAP machine and awoke with significant dyspnea although he does also admit recent mildly productive cough but no fevers or chills. #1. Acute Hypoxic Respiratory Failure on Chronic, Multifactorial, Acute on chronic COPD exacerbation complicated by underlying Pulmonary Fibrosis and recent COVID-19 Viral Illness, Possible CAP concurrently and #2, #3 with lactic acidosis suspected secondary to hypoxemia: Will admit to the ICU, continue BIPAP usage, continue Pulm/CC consultation, maintain on oxygen with wean as tolerated to home oxygen supplementation, continue ATC duonebs, scheduled budesonide also per prior list, PRN albuterol, maintain on IV rocephin and azithromycin to be cautious although could be COVID changes, obtain sputum Cx, antigens and repsiraotry panel, maintain on IV methylprednisolone, HOB, IS parameters, obtain procalcitonin, hold on abx therapy pending sputum Cx, respiratory viral panel. #2. Chest Pain w/ Acute NSTEMI, suspected type II secondary to demand: EKG in ED w/ sinus tachycardia with no acute evidence of ischemia, CXR w/ bibasilar atelectasis versus pneumonia. Trop elevated, 128. Will admit to PCU, maintain on a monitored bed, continue serial cardiac enzymes and EKGs. Obtain magnesium level upon admission. Start heparin drip once next eliquis would have been due. Continue medical management. Will request repeat ECHO. Cardiology consulted. #3. DKA appearance w/ Diabetes mellitus type II: Will continue on insulin ip, check serial K+, glucose w/ IVF changes pending these levels, serial chemistry, obtain mag, phos daily w/ repletion as needed, transition to home SC regimen when gap closed w/ overlap on drip, nutrition consultation, hemoglobin A1c requested. UA requested. #4. MIRANDA on Chronic Kidney Disease Stage III, unclear subtype: Likely secondary to presentation number 1, #2, #3, admission BUN/Cr 91/3.34, baseline renal function 1.3-1.5 primarily, will continue judiciously hydrate, will obtain FeNa and if ongoing obtain dilia US. Hold nephrotoxic regimen. #4. Chronic Diastolic CHF: Will continue asa, transitioning to heparin drip, statin, holding lasix regimen, not on BB or ACEI of note. 03/10/2021 echocardiogram with EF 50%, post operative septal motion, trivial MVI, trivial TVI, poorly visualized AV, mild to moderate aortic stenosis, diastolic function indeterminate. Monitor closely given judicious hydration. #6. Carotid disease: 12/09/2020 carotid duplex with irregular calcific plaque proximal right internal and external carotid arteries 50- 69% stenosis right proximal ICA, less than 50% stenosis right external carotid, irregular calcific plaque proximal left internal carotid with 50 to 69% stenosis, less than 50% stenosis left external carotid, patent antegrade vertebrals bilaterally. Continue aspirin, statin, hypertensive regimen as noted, encourage continued outpatient follow-up with vascular. #7. CAD: s/p CABG x 2 (06/23/2018 with a TANNER to the LAD and SVG to OM1), transition to heparin drip as noted temporally, statin therapy, not on BB or ACEI of note. #8. PAF: Not on any rate or rhythm agent, will transition to heparin when next Eliquis regimen would have been due. #9. Chronic anemia, macrocytic: Admission hemoglobin 13.8, baseline appears 10-11, stable, trend. #10. Hypertension: Holding lasix given MIRANDA, resume once appropriate, PRN hydralazine. #11. Hyperlipidemia: We will continue patient home statin therapy. #12. Hypothyroidism: We will continue patient home levothyroxine regimen. #13. BPH: We will continue patient on Flomax and dutasteride regimen. #14. Gout: We will continue patient home allopurinol regimen. #15. GERD: We will continue patient on PPI. #16. Depression and Anxiety: Not on regimen per current list, encourage continued outpatient follow-up. #16. AROLDO: As noted BIPAP in place. #17. Sick Sinus Syndrome: s/p pacemaker placement. #18. DVT prophylaxis: SCDs, hold eliquis, transition to heparin drip once he would be next due. #19. CODE status: Patient HCPOA is his who is present and living will is currently in place. Discussed CODE status at length including difference between FULL code, DNR-CCA and DNR-CC status. Following discussions about the differences in these status requested eventually full CODE STATUS. Patient initially did not want to have a tube to breathe for him if necessary but discussed at length that if had a cardiac event would require likely intubation then patient amenable to full code. Advanced Care Planning Face to Face Time: 16 minutes. Charges/Coding Visit Charges Inpatient E&M: 58975 Init Hosp L3 Procedures Hospitalists Procedures: 49939 Advncd Care Plan 30 Min
[2021-07-24] MEDS: Ceftriaxone 1 GM/50 ML BAG IV (06:13)
[2021-07-24] MEDS: Heparin Injection (Vial) 5,000 UNIT/ML VIAL 9500 UNIT IV (06:20)
--- NOTE | 2021-07-24 06:43 | CON.PCM.CC_ITS ---
Assessment & Plan Assessment/Plan (1) Sepsis: PLAN: RECOMMENDATIONS: 1. Continue BiPAP support as tolerated. The patient is at high risk for intubation. 2. Broaden antimicrobials to include vancomycin and Zosyn. 3. Obtain stat EKG and trend troponins. 4. Cardiology consultation is pending. Obtain echocardiogram. 5. Continue heparin infusion for now. 6. Aggressive management of fluid status given underlying DKA. Continue insulin infusion. 7. Obtain arterial blood gas. 8. Continue serial BMP monitoring and aggressive electrolyte repletion, as needed. IMPRESSIONS: 1. Acute on chronic hypoxemic respiratory failure The patient presented to the hospital with worsening shortness of breath and chest pain. The patient has a known history of a severe mixed ventilatory defect with moderate reduction in diffusing capacity and chest imaging which revealed evidence of an evolving interstitial lung process. Prior 6-minute walk test revealed the need for 2 L/min of oxygen at rest and 4 L/min with exertion. The patient's medical history is also significant for coronary disease status post CABG. Chest imaging demonstrated background interstitial changes with what appeared to be some basilar predominant opacities. The patient is currently requiring BiPAP support to maintain clinical stability. Recommend continuing the aforementioned along with antimicrobials to cover for potential pulmonary infectious process. 2. Sepsis The patient presented with sepsis due to suspected pneumonia with acute sepsis related organ dysfunction as evidenced by respiratory failure requiring noninvasive positive pressure ventilatory support, acute kidney injury and lactic acidemia. In addition, the patient was noted to have 20% bands on CBC differential. The patient has received supplemental IV fluids. We will continue to monitor hemodynamic status, should the need for vasopressor support arise. In the interim, the patient's antimicrobials have been broadened. 3. Chest pain/NSTEMI Likely secondary to demand ischemia in the setting of numbers 1 and 2. The patient has been initiated on a heparin infusion, which will be continued. Echocardiogram is pending along with cardiology consultation. 4. Diabetic ketoacidosis Continue volume resuscitation and insulin infusion, along with aggressive electrolyte repletion as needed. Continue to monitor BMP every 4 hours. 5. Acute on chronic kidney disease Most likely prerenal in etiology. Anticipate improvement in renal function with volume expansion and stabilization of hemodynamics. Continue to monitor urine output. No current indication for renal replacement therapy. 6. Advanced age/paroxysmal atrial fibrillation/anemia/hypothyroidism/sick sinus syndrome/sleep apnea Complicates care, management, recovery and prognosis. Continue home medications as indicated. TIME: 43 minutes of critical care time, independent of procedures, was spent addressing the patient's acute on chronic hypoxemic respiratory failure, sepsis, NSTEMI, DKA, acute on chronic kidney disease, review of all data and collaborat ion with the care team. HPI Consult Data Date of Consult: 07/24/21 HPI Narrative Reason for Consultation: Acute on chronic hypoxemic respiratory failure HPI Narrative: The patient is an 85-year-old male, with a history as outlined below, who presented to the emergency department on the morning of July 24 with progressive dyspnea and chest discomfort. He has a known history of chronic hypoxemic respiratory failure, COPD and obstructive sleep apnea and is currently followed by Dr. Song in the pulmonary medicine clinic. The patient does have a remote history of COVID-19 pneumonia in January 2021. The patient's medical history is also significant for coronary artery disease status post CABG along with paroxysmal atrial fibrillation status post pacemaker placement. Prior pulmonary function studies did reveal evidence of an irreversible severe mixed ventilatory defect with moderate reduction in diffusing capacity. Prior chest imaging did reveal evidence of evolving interstitial lung disease which appeared subpleural location was associated with some honeycombing. On presentation to the emergency department, the patient was noted to be afebrile, but was hypotensive with a blood pressure of 97/61 mmHg. The patient was noted to be tachycardic and tachypneic, saturating 86% on room air. Initial laboratory evaluation revealed no evidence of a leukocytosis. Chemistry profile was notable for a sodium of 125, chloride of 90, bicarbonate of 17 and creatinine of 3.34. Glucose was elevated to 686. Anion gap was elevated at 18. Lactate was increased to 3.5. BNP was elevated at 438. Moderate serum acetone was noted. The patient received supplemental IV fluid hydration and was started on ceftriaxone and azithromycin. The patient was also initiated on a heparin infusion. Cardiology consultation was placed. Due to his tenuous respiratory status, the patient was placed on BiPAP therapy and subsequently admitted to the medical intensive care unit for further management. ON LICENSE OF [facility] Medical History Acute and chronic respiratory failure with hypoxia Acute blood loss anemia Atherosclerotic heart disease of [place] coronary artery without angina pectoris Atrial flutter Atrial flutter Cellulitis Chest pain Chronic renal insufficiency CKD (chronic kidney disease) stage 3, GFR 30-59 ml/min COPD (chronic obstructive pulmonary disease) COVID Depression Dizziness Essential hypertension GERD (gastroesophageal reflux disease) GI bleed Gout Healthcare associated bacterial pneumonia (Unknown) Hyperkalemia Hyperlipidemia Hypothyroidism Macrocytic anemia Mixed obstructive and restrictive ventilatory defect Morbid obesity with BMI of 40.0-44.9, adult NSTEMI (non-ST elevated myocardial infarction) Old myocardial infarction AROLDO (obstructive sleep apnea) Osteoarthritis Pacemaker Paroxysmal atrial fibrillation Pulmonary fibrosis Retinal artery occlusion Sepsis Sick sinus syndrome Home Medications levothyroxine 125 mcg PO DAILY 03/28/18 [History Last Taken 02/18/20] acetaminophen 1,000 mg PO Q6H PRN tab 07/25/18 [Rx Last Taken 01/14/21 12:00] allopurinol 300 mg tablet 300 mg PO DAILY 07/27/18 [History Last Taken 02/17/20] pantoprazole 40 mg tablet,delayed release 40 mg PO DAILY 08/16/18 [History Last Taken 02/18/20] rosuvastatin 10 mg tablet 10 mg PO QHS tab 02/11/20 [History Last Taken 02/17/20] dutasteride 0.5 mg PO DAILY 02/18/20 [History Last Taken 02/17/20] Mucus Relief ER 1,200 mg PO BID 01/14/21 [History Last Taken 01/14/21 08:00] tamsulosin 0.4 mg PO DAILY@1730 01/14/21 [History Last Taken Unknown] budesonide 0.5 mg/2 mL suspension for nebulization 0.5 mg INHALATION BID #120 ml 01/27/21 [Rx Last Taken Unknown] Eliquis 2.5 mg PO DAILY 03/09/21 [History Last Taken Unknown] furosemide 40 mg PO BIDLX 30 Days #60 tab 03/11/21 [Rx Last Taken Unknown] azithromycin 250 mg tablet 250 mg PO DAILY 04/22/21 [History Last Taken Unknown] ipratropium 0.5 mg-albuterol 3 mg (2.5 mg base)/3 mL nebulization soln 3 ml INHALATION Q4H #180 ml 05/05/21 [Rx Last Taken Unknown] meclizine 12.5 mg tablet 12.5 mg PO TID PRN 06/04/21 [History Last Taken Unknown] Acapella #1 ea 06/23/21 [Rx Last Taken Unknown] aspirin 81 mg PO DAILY 07/24/21 [History Last Taken Unknown] prednisone 10 mg PO DAILY 07/24/21 [History Last Taken Unknown] Allergy/AdvReac Type Severity Reaction Status Date / Time atorvastatin [From Lipitor] AdvReac MUSCLE PAIN Verified 07/24/21 04:26 Family History (Updated 07/24/21 @ 06:[address] Suzie Francois MD) Father Cancer Lung Heart disease Myocardial infarction Mother Heart disease Surgical History History of bilateral hip replacements History of permanent cardiac pacemaker placement (02/18/20) S/P coronary artery bypass graft x 2 (~06/23/18) Social History housing: house Smoking Status: Former smoker how long ago did patient quit smokin years ago alcohol intake: never substance use type: does not use caffeine: No what type of physical activity do you participate in: walking frequency: daily ROS Constitutional Constitutional: Denies chills or fatigue Eyes Eyes: Denies blurry vision or change in vision ENT HEENT: Denies headache(s), hoarseness or loss taste/smell Cardiovascular Cardiovascular: Reports chest pain and dyspnea Respiratory/Chest Respiratory/Chest: Reports dyspnea and shortness of breath with exertion Gastrointestinal Gastrointestinal: Denies abdominal pain, diarrhea, nausea or vomiting Genitourinary Genitourinary: Denies difficulty urinating Musculoskeletal Musculoskeletal: Denies arthralgias, back pain or joint pain Integumentary Integumentary: Denies lesions, rash or skin ulcer Neurologic Neurologic: Denies abnormal gait Psychiatric Psychiatric: Denies anxiety or depression Endocrine Endocrinology: Denies fatigue Hematologic/Lymphatic Hematologic/Lymphatic: Denies easy bleeding or easy bruising Physical Exam Const alert Constitutional Narrative: Appears in a moderate degree of distress on BiPAP. General Appearance: ill appearing Nutritional Appearance: obese HEENT normocephalic and head/scalp atraumatic Eyes PERRL and EOMs intact bilaterally Neck supple General: trachea midline Resp Effort and Inspection: tachypneic and labored Auscultation: rales and diminished lung sounds Cardio S1 normal heart sound and S2 normal heart sound Rate: tachycardic GI normal to inspection, nondistended, normoactive bowel sounds Extremity no clubbing, cyanosis or edema Skin no rashes or lesions noted Neuro no focal motor deficits Psych Mood & Affect: flat affect Lab / Micro Data Result Diagrams: 07/24/21 04:30 07/24/21 11:48 Labs: Laboratory Results - last 24 hr 07/24/21 04:30: WBC 10.6, RBC 4.50 L, Hgb 13.8, Hct 41.2, MCV 91.6, MCH 30.7, MCHC 33.5, RDW Std Deviation 58.2 H, RDW Coeff of Thang 17.4 H, Plt Count 246, MPV 10.7, Neut % (Auto) Not Reportable, Total Counted 100, Neutrophils % (Manual) 9 L, Band Neutrophils % 20 H, Lymphocytes % (Manual) 5 L, Monocytes % (Manual) 8, Metamyelocytes % 53 H, Myelocytes % 5 H, Differential Comment , Diff Path Review May foll, Platelet Estimate ADEQUATE, RBC Morphology NORM C+C 07/24/21 04:30: PT Cancelled, INR Cancelled, APTT Cancelled 07/24/21 04:30: Sodium 125 L, Potassium 4.5, Chloride 90 L, Carbon Dioxide 17.0 L, Anion Gap 18 H, BUN 91 H, Creatinine 3.34 H, Estim Creat Clear Calc 19.14, Est GFR (MDRD) Af Amer 23 L, Est GFR (MDRD) Non-Af 19 L, BUN/Creatinine Ratio 27.2 H, Glucose 686 H*, Calcium 8.9, Troponin I High Sens 128 H* 07/24/21 04:30: B-Natriuretic Peptide 438.5 H 07/24/21 04:30: Lactic Acid 3.5 H* 07/24/21 04:30: Acetone Level MODERATE H 07/24/21 05:00: PT 23.4 H, INR 2.2, APTT 36.1 Micro: Microbiology 07/24/21 04:44 Nasal Secretion SARS-CoV-2 Antigen (Rapid) - Final Radiology Impression Chest X-Ray 07/24/21 04:45 IMPRESSION: Bibasilar atelectasis and/or infiltrate. at 0505 Reported and signed by: Alexandro Bonds MD Electronically Signed: Alexandro Bonds MD at 5:04 EST , Charges/Coding Procedures Hospitalists Procedures: [id number] Critial Care 1st Hr
[2021-07-24 06:48] LABS: Magnesium 1.9 mg/dL (1.6-2.6); Phosphorus 6.8 mg/dL (2.5-4.9)
--- NOTE | 2021-07-24 07:12 | ECHOCS_ITS ---
Reason For Study: NSTEMI Procedure This was a 2D Doppler, Color Flow transthoracic echocardiogram. Contrast injection was performed. Exam performed portable in ICU/CCU. Left Ventricle Moderately dilated left ventricle. The estimated ejection fraction is 25-30 %. Severe LV systolic Dysfunction with global LV hypokinesia. Right Ventricle Mildly dilated right ventricle. Mild global right ventricular systolic dysfunction. Atria The left atrium is moderately enlarged. The right atrium is mildly enlarged. Mitral Valve There is mild mitral annular calcification. Mild (1+) mitral valve insufficiency. Tricuspid Valve Normal tricuspid valve. Mild eccentric tricuspid valve insufficiency. Aortic Valve Moderate diffuse aortic valve calcification. Mild aortic stenosis. Peak aortic valve gradient 34.8 mmHg. Mean aortic valve gradient 20.1 mmHg. Mild (1+) aortic valve insufficiency. Pulmonic Valve The pulmonic valve is not well visualized. Great Vessels Normal aortic root. Pericardium/Pleural No pericardial effusion. Medication Diluted definity 3ml given slow IV push to enhance endocardial definition. MMode/2D Measurements & Calculations LVIDd: 5.4 cm IVSd: 1.1 cm LVOT diam: 2.1 cm LVIDs: 4.5 cm LVPWd: 1.2 cm RVDd: 4.1 cm FS: 16.7 % LVOT area: 3.5 cm2 Ao root diam: 3.1 cm LAV(MOD-bp): 55.7 ml LVAd ap4: 45.4 cm2 LAV(MOD-bp) Indexed: 22.8 ml/m2 LVLd ap4: 9.0 cm LAV(MOD-sp2): 67.6 ml EDV(MOD-sp4): 183.5 ml LAV(MOD-sp4): 41.4 ml EDV(sp4-el): 194.1 ml LVAs ap4: 36.1 cm2 LVLs ap4: 8.4 cm ESV(MOD-sp4): 128.7 ml ESV(sp4-el): 132.5 ml EF(MOD-sp4): 29.8 % EF(sp4-el): 31.7 % SV(MOD-sp4): 54.7 ml SV(sp4-el): 61.5 ml LA A4 area: 18.0 cm2 LA dimension(2D): 5.9 cm RA A4 area: 17.7 cm2 Doppler Measurements & Calculations MV E max lon: 79.3 cm/sec Lat Peak E' Lon: 8.3 cm/sec Med Peak E' Lon: 7.4 cm/sec MV A max lon: 88.3 cm/sec E/E' lat: 9.6 E/E' med: 10.7 MV E/A: 0.90 Ao V2 max: 293.3 cm/sec LV V1 max: 106.1 cm/sec SV(LVOT): 65.3 ml Ao max P.8 mmHg LV V1 max P.7 mmHg Ao V2 mean: 210.6 cm/sec LV V1 mean P.6 mmHg Ao mean P.1 mmHg LV V1 mean: 74.6 cm/sec Ao V2 VTI: 49.7 cm LV V1 VTI: 18.8 cm NAEEM(I,D): 1.3 cm2 NAEEM(V,D): 1.3 cm2 PA V2 max: 76.1 cm/sec TR max lon: 256.2 cm/sec TR max P.3 mmHg ECHO/Echo Complete W/ Contrast Interpretation Summary The estimated ejection fraction is 25-30 %. Severe LV systolic Dysfunction with global LV hypokinesia Significant change from prior echo 02/2021 Pacemaker lead noted on R.side Contrast echo used/Definity. is underestimated secondary to severity of LV systolic function NAEEM 1.3 cm2 Peak aortic valve gradient 34.8 mmHg. Mean aortic valve gradient 20.1 mmHg. Ordering Physician: Suzie Francois Referring Physician: Alexandro Lovell Performed By: Key Ya RDCS, RVT
--- NOTE | 2021-07-24 07:15 | PN.HOSP_ITS ---
Subjective Subjective Patient is an 85-year-old M with multiple comorbidities who presented with shortness of breath chest pain and elevated blood glucose level. An assessment of acute hypoxic respiratory failure and diabetic ketoacidosis made admitted to the intensive care unit for further management Objective Data Objective Data Vital Signs: Vital Signs Temp Pulse Resp BP Pulse Ox 98.0 F 102 H 33 H 96/50 L 94 07/24/21 06:08 07/24/21 06:16 07/24/21 06:16 07/24/21 06:16 07/24/21 06:16 Oxygen Flow Rate (L/min) 75 Oxygen Delivery Method Bi-pap Weight: 117.4 kg Body Mass Index (BMI) 33.2 Intake & Output: Intake and Output for Last 24 Hours 07/22/21 07/23/21 07/24/21 23:59 23:59 23:59 Intake Total 50 / 50 Balance 50 / 50 Lab / Micro Data Result Diagrams: 07/24/21 04:30 07/24/21 07:45 Labs: Laboratory Results - last 24 hr 07/24/21 04:30: WBC 10.6, RBC 4.50 L, Hgb 13.8, Hct 41.2, MCV 91.6, MCH 30.7, MCHC 33.5, RDW Std Deviation 58.2 H, RDW Coeff of Thang 17.4 H, Plt Count 246, MPV 10.7, Neut % (Auto) Not Reportable, Total Counted 100, Neutrophils % (Manual) 9 L, Band Neutrophils % 20 H, Lymphocytes % (Manual) 5 L, Monocytes % (Manual) 8, Metamyelocytes % 53 H, Myelocytes % 5 H, Differential Comment , Diff Path Review May foll, Platelet Estimate ADEQUATE, RBC Morphology NORM C+C 07/24/21 04:30: PT Cancelled, INR Cancelled, APTT Cancelled 07/24/21 04:30: Sodium 125 L, Potassium 4.5, Chloride 90 L, Carbon Dioxide 17.0 L, Anion Gap 18 H, BUN 91 H, Creatinine 3.34 H, Estim Creat Clear Calc 19.14, Est GFR (MDRD) Af Amer 23 L, Est GFR (MDRD) Non-Af 19 L, BUN/Creatinine Ratio 27.2 H, Glucose 686 H*, Calcium 8.9, Troponin I High Sens 128 H* 07/24/21 04:30: B-Natriuretic Peptide 438.5 H 07/24/21 04:30: Lactic Acid 3.5 H* 07/24/21 04:30: Acetone Level MODERATE H 07/24/21 04:30: Phosphorus 6.8 H, Magnesium 1.9 07/24/21 05:00: PT 23.4 H, INR 2.2, APTT 36.1 Micro: Microbiology 07/24/21 04:44 Nasal Secretion SARS-CoV-2 Antigen (Rapid) - Final Radiography Diagnostic Testing: Radiology Impression Chest X-Ray 07/24/21 04:45 IMPRESSION: Bibasilar atelectasis and/or infiltrate. at 0505 Reported and signed by: Alexandro Bonds MD Electronically Signed: Alexandro Bonds MD at 5:04 EST , Physical Exam Narrative GENERAL: Patient on BiPAP and appears ill looking HEENT: Atraumatic; EYES; Anicteric, Normal Conjunctiva NECK; supple, normal thyroid, RESPIRATORY: Diminished to auscultation, tachypneic CARDIOVASCULAR: Regular S1 S2, GI: soft, normoactive bowel sounds, : No Renal angle tenderness; EXTREMITIES: No edema, no clubbing, MUSCULOSKELETAL: no muscle wasting NEURO: Awake; no lateralizing signs. SKIN: No Rash PSYCH; Flat affect Assessment & Plan Assessment/Plan (1) DKA (diabetic ketoacidosis): QUALIFIERS: Diabetes mellitus complication detail: without coma Diabetes mellitus type: type 2 Qualified Code(s): E11.10 - Type 2 diabetes mellitus with ketoacidosis without coma (2) Community acquired pneumonia: QUALIFIERS: Laterality: unspecified laterality Qualified Code(s): J18.9 - Pneumonia, unspecified organism (3) MIRANDA (acute kidney injury): (4) Acute hypoxemic respiratory failure: PLAN: Patient is an 85-year-old M with multiple comorbidities who pre sented with shortness of breath chest pain and elevated blood glucose level. An assessment of acute hypoxic respiratory failure and diabetic ketoacidosis made admitted to the intensive care unit for further management 1. Acute on chronic hypoxic respiratory failure ?Multifactorial including COPD with acute exacerbation, pulmonary fibrosis from recent COVID 19 pneumonia in January 2021. Patient was placed on noninvasive ventilation BiPAP admitted to the intensive care unit consultation placed to pulmonary medicine. Patient was placed on empiric antibiotic therapy pending culture results obtained on admission. Patient remains significantly at risk for possible intubation. Consult placed to pulmonary medicine Case discussed with Dr. Aj 2. Diabetic ketoacidosis ?Managed with IV fluids, correction of electrolyte as well as insulin with every 4 BMPs ordered and subsequent adjustment made to therapy 3. Elevated troponin acute non-STEMI ?Patient did present with chest pain but had no EKG changes consistent with acute ischemia. Admitted to intensive care unit serial cardiac enzymes ordered in addition to a 2D echo and consultation placed to cardiology. As part of patient management he was placed on heparin drip, antiplatelet therapy with aspirin, statin therapy and low-dose beta-blockade 4. Acute kidney injury ?Superimposed on chronic kidney disease stage IIIa. Patient baseline creatinine 1.41.5 creatinine on admission was 3.34. Currently on IV fluid with serial BMPs ordered 5. Chronic congestive heart failure with preserved ejection fraction ?Echo obtained on 03/10/2021 demonstrated EF of 50% 6. Coronary artery disease -Status post CABG on 05/02/2019 with a TANNER to the LAD and SVG to OM1 7. Paroxysmal atrial fibrillation ?Rate controlled, on systemic anticoagulation with Eliquis which is currently being held since patient was placed on heparin 8. Anemia - Secondary to chronic disorder monitoring H&H and transfuse if patient becomes symptomatic or hemoglobin falls below 7 9. Essential hypertension ?Patient blood pressure stable 10. Dyslipidemia -Patient is on statin therapy, continued at home dose 11. Hypothyroidism - Patient is on levothyroxine home dose continued 12. BPH ?Patient is on Flomax as well as dutasteride; discontinue 13. Gout ?Patient is on allopurinol 14. GERD ?Patient's PPI 15. Class I obesity with BMI of 33.2 ?Weight loss advised 16. Sick sinus syndrome ?Status post pacemaker placement 17. Obstructive sleep apnea ?PAP therapy at night 18. DVT prophylaxis ?On systemic anticoagulation Extended time spent reviewing patient's chart including initial management orders, diagnostic data discussion with providers involved in patient's care; 25-minute Charges/Coding Procedures Hospitalists Procedures: [id number] Prolonged InPt Service; first hour
[2021-07-24 07:51] LABS: Bedside Glucose > 500 mg/dL (74-106)
--- NOTE | 2021-07-24 08:01 | EKG12_ITS ---
Test Reason : SOB Blood Pressure : / mmHG Vent. Rate : 109 BPM Atrial Rate : 109 BPM P-R Int : 232 ms QRS Dur : 128 ms QT Int : 380 ms P-R-T Axes : 000 -49 101 degrees QTc Int : 511 ms Sinus tachycardia with 1st degree A-V block with Premature atrial complexes Left axis deviation Left bundle branch block Abnormal ECG When compared with ECG of 10-MAR-2021 05:45, Premature atrial complexes are now Present Left bundle branch block is now Present Confirmed by STEVE PEOPLES, MINOR ([id number]), magazine editor ZULY PRAKASH ([id number]) on 07/27/2021 11:27:37 AM Referred By: ANNA Confirmed By:MINOR WILSON MD
[2021-07-24 08:22] LABS: Glucose 718 mg/dL (74-106); Troponin-I HS 144 pg/mL (3.0-78.0)
--- NOTE | 2021-07-24 08:34 | PCM.RX.CS ---
Consult Type of Consult: New start Suspected Infection: Pneumonia Labs: Sodium 125 mmol/L (136-145) L 07/24/21 04:30 Potassium 4.5 mmol/L (3.5-5.1) 07/24/21 04:30 Chloride 90 mmol/L (98-107) L 07/24/21 04:30 Carbon Dioxide 17.0 mmol/L (21.0-32.0) L 07/24/21 04:30 Anion Gap 18 (5-15) H 07/24/21 04:30 BUN 91 mg/dL (7-18) H 07/24/21 04:30 Creatinine 3.34 mg/dL (0.70-1.30) H 07/24/21 04:30 Est GFR (MDRD) Af Amer 23 mL/min (>60) L 07/24/21 04:30 Est GFR (MDRD) Non-Af 19 mL/min (>60) L 07/24/21 04:30 BUN/Creatinine Ratio 27.2 RATIO (10-20) H 07/24/21 04:30 Glucose 718 mg/dL (74-106) H* 07/24/21 07:45 Microbiology: Microbiology 07/24/21 04:44 Nasal Secretion SARS-CoV-2 Antigen (Rapid) - Final Weight used for dosin kg - IBW Goal Trough: 15-20 mcg/mL Pharmacy Plan for Drug Dosing: NEW START IV VANCOMYCIN Consulting Physician: Dr. Belem Aj Indication: Community-Acquired Pneumonia Goal Trough: 15-20 SrCr: 3.34 mg/dL CrCl: estimated 18.9 ml/min (IBW 81kg) Comments: Loading dose of 2000mg x1 ordered for 07/24/21 0830 Vancomcyin Dose: Will dose by drug level Pending Level: Random vancomcyin level scheduled @ 0600 07/26/21 Pharmacy Service will continue to monitor and adjust dosing as required. Labs to be done on [date and time ordered]: Random vancomyin level with AM labs 07/26/21
[2021-07-24 08:44] LABS: Urine Sodium 13 mmol/L (Not Establ.)
[2021-07-24 08:51] LABS: Bedside Glucose > 500 mg/dL (74-106)
[2021-07-24] MEDS: 0.9% Normal Saline 1,000 ML 125 ML IV ×2 (09:07→18:25)
[2021-07-24] MEDS: 0.9% Saline Lock 10 ML Syringe IV ×2 (09:07→14:17)
[2021-07-24 09:16] LABS: Reflex Lactate? Y
--- NOTE | 2021-07-24 09:37 | PCM.CONS.C ---
Documented by User: BLAISE Ross 07/24/21 16:46 Assessment & Plan Assessment/Plan (1) NSTEMI (non-ST elevated myocardial infarction): (2) DKA (diabetic ketoacidosis): QUALIFIERS: Diabetes mellitus complication detail: without coma Diabetes mellitus type: type 2 Qualified Code(s): E11.10 - Type 2 diabetes mellitus with ketoacidosis without coma (3) Acute on chronic respiratory failure: QUALIFIERS: Respiratory failure complication: hypoxia Qualified Code(s): J96.21 - Acute and chronic respiratory failure with hypoxia (4) Atherosclerotic heart disease of [place] coronary artery without angina pectoris: QUALIFIERS: [place] vs. transplanted heart: [place] heart Qualified Code(s): I25.10 - Atherosclerotic heart disease of [place] coronary artery without angina pectoris (5) Paroxysmal atrial fibrillation: (6) Essential hypertension: (7) Hyperlipidemia: QUALIFIERS: Hyperlipidemia type: unspecified Qualified Code(s): E78.5 - Hyperlipidemia, unspecified (8) History of permanent cardiac pacemaker placement: (9) Cardiomyopathy: PLAN: NSTEMI: high sensitivity troponin trending up (128/144/158). With his Cp over the last 2 days and his newly noted decreased EF, this could be more cardiac as he does have a hx of CAD with CABG in 2019 than related to his DKA. Ideally would pursue diagnostic heart cath, however with is renal function will treat medically for now. Pt does have metoprolol ordered, however d/t his hypotension this has been hold. He is not on an CELY-I d/t his renal function. He will continue with his heparin for now. Will need to consider switching this over to Plavix/ASA. He does have a hx of GI bleeds, he was on Eliquis for his Afib. Will need to evaluate risk of bleeding if he should remain on triple antiplatelet. He will continue with is statin. His Bp is on the low side, may need to consider adding Levophed to support his pressures. In regards to his Afib: He is currently in ST and has not had any episodes of Afib. For now will continue with monitor with telemetry. He does have metoprolol ordered, however this is being held d/t his low BP. Once his Heparin is stopping will need to reconsider starting his eliquis. In regards to his cardiomyopathy: this is new. His last echo from 03/05 demonstrated and EF of 55%. Based on VS will try to maximize his medications. His Metoprolol is being held d/t low BP and with his renal function, he is not on an CELY. He does have a PPM, based on his clinical course, in the future he may need to be considered for an ICD. QRS is not wide enough for a Bi-V ICD. His PPM is being monitored through the office. HPI Consult Data Date of Consult: 07/24/21 HPI Narrative HPI Narrative: HIRAM KRUEGER, is a 85 M who presented to the ER on 07/24/21 for CP for 2 days. He was noted to be hypoxic, placed on Bipap. CXR demonstrated Bibasilar atelectasis and/or infiltrate. Glucose was elevated at 686. High sensitivity troponin 128 and has trended up to 144. He was started on Heparin. Creatinine is elevated at 3.34. He was admitted to the ICU for Acute on chronic hypoxic respiratory failure, Sepsis, NSTEMI, DKA and Acute on Chronic Kidney disease. He has a history of non-ST elevated myocardial infarction in March 2018, hypertension, chronic renal insufficiency, and gastrointestinal bleeding associated with anemia. He underwent a heart catheterization in May 2018 after recovering from GI bleed during hospitalization in March 2018 that showed multivessel CAD with left main with 50% stenosis, mid LAD with 85% stenosis, ostial diagonal with 50% stenosis, OM1 with 95% stenosis, LCx with 75% stenosis, and RCA with 25% stenosis. He was referred to [facility] and he underwent CABG x2 with Dr. Wilkes on 06/23/2018 with a TANNER to the LAD and SVG to OM1. His post operative course was complicated by polymicrobial pneumonia, anemia requiring transfusion, paroxysmal atrial fibrillation, and acute kidney injury. He did undergo a PPM in 02/2020 for sick sinus syndrome. He was admitted to [facility] February 2021 with COPD and congestive heart failure exacerbation. He underwent repeat echocardiogram that showed an ejection fraction of 55%. Pt is currently on Bipap, is at side. He was noting CP earlier today. Yesterday it was a 10/10. It was like that for 2 days. It was retrosternal. He did not take any NTG. He notes that the did not have any. Earlier he had Cp that was a 5/10. notes that he was also SOB prior to coming into the hospital. [facility] Medical History (Updated 07/24/21 @ 13:48 by Pearl Valadez PA, PA) Acute and chronic respiratory failure with hypoxia Acute blood loss anemia Atherosclerotic heart disease of [place] coronary artery without angina pectoris Atrial flutter Atrial flutter Cardiomyopathy Cellulitis Chest pain Chronic renal insufficiency CKD (chronic kidney disease) stage 3, GFR 30-59 ml/min COPD (chronic obstructive pulmonary disease) COVID Depression Dizziness Essential hypertension GERD (gastroesophageal reflux disease) GI bleed Gout Healthcare associated bacterial pneumonia (Unknown) Hyperkalemia Hyperlipidemia Hypothyroidism Macrocytic anemia Mixed obstructive and restrictive ventilatory defect Morbid obesity with BMI of 40.0-44.9, adult NSTEMI (non-ST elevated myocardial infarction) NSTEMI (non-ST elevated myocardial infarction) Old myocardial infarction AROLDO (obstructive sleep apnea) Osteoarthritis Pacemaker Paroxysmal atrial fibrillation Pulmonary fibrosis Retinal artery occlusion Sepsis Sick sinus syndrome Home Medications levothyroxine 125 mcg PO DAILY 03/28/18 [History Last Taken 02/18/20] acetaminophen 1,000 mg PO Q6H PRN tab 07/25/18 [Rx Last Taken 01/14/21 12:00] allopurinol 300 mg tablet 300 mg PO DAILY 07/27/18 [History Last Taken 02/17/20] pantoprazole 40 mg tablet,delayed release 40 mg PO DAILY 08/16/18 [History Last Taken 02/18/20] rosuvastatin 10 mg tablet 10 mg PO QHS tab 02/11/20 [History Last Taken 02/17/20] dutasteride 0.5 mg PO DAILY 02/18/20 [History Last Taken 02/17/20] Mucus Relief ER 1,200 mg PO BID 01/14/21 [History Last Taken 01/14/21 08:00] tamsulosin 0.4 mg PO DAILY@1730 01/14/21 [History Last Taken Unknown] budesonide 0.5 mg/2 mL suspension for nebulization 0.5 mg INHALATION BID #120 ml 01/27/21 [Rx Last Taken Unknown] Eliquis 2.5 mg PO DAILY 03/09/21 [History Last Taken Unknown] furosemide 40 mg PO BIDLX 30 Days #60 tab 03/11/21 [Rx Last Taken Unknown] azithromycin 250 mg tablet 250 mg PO DAILY 04/22/21 [History Last Taken Unknown] ipratropium 0.5 mg-albuterol 3 mg (2.5 mg base)/3 mL nebulization soln 3 ml INHALATION Q4H #180 ml 05/05/21 [Rx Last Taken Unknown] meclizine 12.5 mg tablet 12.5 mg PO TID PRN 06/04/21 [History Last Taken Unknown] Acapella #1 ea 06/23/21 [Rx Last Taken Unknown] aspirin 81 mg PO DAILY 07/24/21 [History Last Taken Unknown] prednisone 10 mg PO DAILY 07/24/21 [History Last Taken Unknown] Allergy/AdvReac Type Severity Reaction Status Date / Time atorvastatin [From Lipitor] AdvReac MUSCLE PAIN Verified 07/24/21 04:26 Family History (Updated 07/24/21 @ 06:[address] Suzie Francois MD) Father Cancer Lung Heart disease Myocardial infarction Mother Heart disease Surgical History History of bilateral hip replacements History of permanent cardiac pacemaker placement (02/18/20) S/P coronary artery bypass graft x 2 (~06/23/18) Social History housing: house Smoking Status: Former smoker how long ago did patient quit smokin years ago alcohol intake: never substance use type: does not use caffeine: No what type of physical activity do you participate in: walking frequency: daily ROS Constitutional Constitutional: Reports chills and lethargy; Denies fever(s) or headache(s) ENT HEENT: Reports none Cardiovascular Cardiovascular: Reports as per HPI Respiratory/Chest Respiratory/Chest: Reports as per HPI Gastrointestinal Gastrointestinal: Reports nausea; Denies abdominal pain Genitourinary Genitourinary: Reports none Musculoskeletal Musculoskeletal: Reports myalgias Physical Exam Const alert, oriented x3 and average body habitus Constitutional Narrative: on Bipap HEENT normocephalic and moist oral mucous membranes Head and Scalp: normal to inspection Face and Sinus: normal facial exam Nose: external nose normal Eyes PERRL, EOMs intact bilaterally and conjunctivae normal Resp Resp Narrative: Diminished t/o, on Bipap Cardio regular rate and regular rhythm; Negative for no murmurs, no rub or no gallops Cardio Narrative: distant GI normal to inspection, nondistended, normoactive bowel sounds, soft to palpation and non-tender Extremity normal to inspection and no clubbing, cyanosis or edema Neuro oriented x3 and CN's II-XII intact bilaterally Risk Stratification Risk Stratification Applicable: Yes Age >/= 65: Yes >/= 3 CAD Risk Factors (HTN, HLD, DM, family hx of CAD, or current smoker): Yes Aspirin Use in the Past 7 Days: Yes Severe Angina (>/= episodes in 24 hours): Yes EKG ST Changes >/= 0.5mm: No Positive Cardiac Marker: Yes MCKENNA Risk Stratification Score: 5 MCKENNA % Risk: 25% Risk Charges/Coding Visit Charges Office Visits / Consults: 15102 IP Consult L4 Objective Data Vital Signs: Vital Signs Temp Pulse Resp BP Pulse Ox 100.8 F H 105 H 26 H 101/50 L 94 07/24/21 09:00 07/24/21 09:00 07/24/21 08:45 07/24/21 09:00 07/24/21 09:00 Oxygen Flow Rate (L/min) 75 Oxygen Delivery Method Bi-pap Weight: 260 lb 2.327 oz Body Mass Index (BMI) 33.4 Intake & Output: Intake and Output for Last 24 Hours 07/22/21 07/23/21 07/24/21 23:59 23:59 23:59 Intake Total 1847.09 / 1847.09 Balance 1847.09 / 1847.09 Lab / Micro Data Result Diagrams: 07/24/21 04:30 07/24/21 16:00 Labs: Laboratory Results - last 24 hr 07/24/21 04:30: WBC 10.6, RBC 4.50 L, Hgb 13.8, Hct 41.2, MCV 91.6, MCH 30.7, MCHC 33.5, RDW Std Deviation 58.2 H, RDW Coeff of Thang 17.4 H, Plt Count 246, MPV 10.7, Neut % (Auto) Not Reportable, Total Counted 100, Neutrophils % (Manual) 9 L, Band Neutrophils % 20 H, Lymphocytes % (Manual) 5 L, Monocytes % (Manual) 8, Metamyelocytes % 53 H, Myelocytes % 5 H, Differential Comment , Diff Path Review May foll, Platelet Estimate ADEQUATE, RBC Morphology NORM C+C 07/24/21 04:30: PT Cancelled, INR Cancelled, APTT Cancelled 07/24/21 04:30: Sodium 125 L, Potassium 4.5, Chloride 90 L, Carbon Dioxide 17.0 L, Anion Gap 18 H, BUN 91 H, Creatinine 3.34 H, Estim Creat Clear Calc 19.14, Est GFR (MDRD) Af Amer 23 L, Est GFR (MDRD) Non-Af 19 L, BUN/Creatinine Ratio 27.2 H, Glucose 686 H*, Calcium 8.9, Troponin I High Sens 128 H* 07/24/21 04:30: B-Natriuretic Peptide 438.5 H 07/24/21 04:30: Lactic Acid 3.5 H* 07/24/21 04:30: Acetone Level MODERATE H 07/24/21 04:30: Phosphorus 6.8 H, Magnesium 1.9 07/24/21 05:00: PT 23.4 H, INR 2.2, APTT 36.1 07/24/21 07:45: Troponin I High Sens Cancelled 07/24/21 07:45: Glucose 718 H*, Troponin I High Sens 144 H* 07/24/21 07:45: POC Glucose > 500 H* 07/24/21 08:20: Ur Random Sodium 13, Urine Creatinine 135.00 07/24/21 08:44: POC Glucose > 500 H* Micro: Microbiology 07/24/21 04:44 Nasal Secretion SARS-CoV-2 Antigen (Rapid) - Final Cardiology Labs/Tests 07/24/21 04:30: WBC 10.6, RBC 4.50 L, Hgb 13.8, Hct 41.2, MCV 91.6, MCH 30.7, MCHC 33.5, Plt Count 246, MPV 10.7, Neut % (Auto) Not Reportable, Total Counted 100, Neutrophils % (Manual) 9 L, Band Neutrophils % 20 H, Lymphocytes % (Manual) 5 L, Monocytes % (Manual) 8, Metamyelocytes % 53 H, Myelocytes % 5 H 07/24/21 04:30: PT Cancelled, INR Cancelled, APTT Cancelled 07/24/21 04:30: Sodium 125 L, Potassium 4.5, Chloride 90 L, Carbon Dioxide 17.0 L, Anion Gap 18 H, BUN 91 H, Creatinine 3.34 H, Est GFR (MDRD) Af Amer 23 L, Est GFR (MDRD) Non-Af 19 L, BUN/Creatinine Ratio 27.2 H, Glucose 686 H*, Calcium 8.9 07/24/21 04:30: B-Natriuretic Peptide 438.5 H 07/24/21 04:30: Lactic Acid 3.5 H* 07/24/21 04:30: Phosphorus 6.8 H, Magnesium 1.9 07/24/21 05:00: PT 23.4 H, INR 2.2, APTT 36.1 07/24/21 07:45: Glucose 718 H* Rhythm: Sinus Tach ECHO: 07/24/21 The estimated ejection fraction is 25-30 %. Severe LV systolic Dysfunction with global LV hypokinesia Significant change from prior echo 02/2021 Pacemaker lead noted on R.side Contrast echo used/Definity. is underestimated secondary to severity of LV systolic function NAEEM 1.3 cm2 Peak aortic valve gradient 34.8 mmHg. Mean aortic valve gradient 20.1 mmHg. Radiography Diagnostic Testing: Radiology Impression Chest X-Ray 07/24/21 04:45 IMPRESSION: Bibasilar atelectasis and/or infiltrate. at 0505 Reported and signed by: Alexandro Bonds MD Electronically Signed: Alexandro Bonds MD at 5:04 EST , Documented by User: Dr. Edouard Ballesteros MD 07/24/21 16:54 Assessment & Plan Assessment/Plan (1) Atherosclerotic heart disease of [place] coronary artery without angina pectoris: QUALIFIERS: [place] vs. transplanted heart: [place] heart Qualified Code(s): I25.10 - Atherosclerotic heart disease of [place] coronary artery without angina pectoris (2) Hyperlipidemia: QUALIFIERS: Hyperlipidemia type: unspecified Qualified Code(s): E78.5 - Hyperlipidemia, unspecified (3) History of permanent cardiac pacemaker placement: (4) Cardiomyopathy: (5) COPD (chronic obstructive pulmonary disease): QUALIFIERS: COPD type: unspecified COPD Qualified Code(s): J44.9 - Chronic obstructive pulmonary disease, unspecified PLAN: I saw this patient today in the intensive care unit, along with the midlevel and the at bedside I independently examined the patient and all the clinical data, including the lab, chest x-rays, EKG director of cardiac rehabilitation, echocardiogram Cardiac care plan discussed with the nursing staff in ICU, in detail and agree with the documentation by the midlevel. Very high risk patient and not a candidate for invasive cardiac evaluation at this point we will continue to monitor and follow-up clinically. HPI Consult Data Date of Consult: 07/24/21 HPI Narrative Reason for Consultation: Patient with CAD, non-STEMI [facility] Medical History (Updated 07/24/21 @ 13:48 by Pearl Valadez PA, PA) Acute and chronic respiratory failure with hypoxia Acute blood loss anemia Atherosclerotic heart disease of [place] coronary artery without angina pectoris Atrial flutter Atrial flutter Cardiomyopathy Cellulitis Chest pain Chronic renal insufficiency CKD (chronic kidney disease) stage 3, GFR 30-59 ml/min COPD (chronic obstructive pulmonary disease) COVID Depression Dizziness Essential hypertension GERD (gastroesophageal reflux disease) GI bleed Gout Healthcare associated bacterial pneumonia (Unknown) Hyperkalemia Hyperlipidemia Hypothyroidism Macrocytic anemia Mixed obstructive and restrictive ventilatory defect Morbid obesity with BMI of 40.0-44.9, adult NSTEMI (non-ST elevated myocardial infarction) NSTEMI (non-ST elevated myocardial infarction) Old myocardial infarction AROLDO (obstructive sleep apnea) Osteoarthritis Pacemaker Paroxysmal atrial fibrillation Pulmonary fibrosis Retinal artery occlusion Sepsis Sick sinus syndrome Home Medications levothyroxine 125 mcg PO DAILY 03/28/18 [History Last Taken 02/18/20] acetaminophen 1,000 mg PO Q6H PRN tab 07/25/18 [Rx Last Taken 01/14/21 12:00] allopurinol 300 mg tablet 300 mg PO DAILY 07/27/18 [History Last Taken 02/17/20] pantoprazole 40 mg tablet,delayed release 40 mg PO DAILY 08/16/18 [History Last Taken 02/18/20] rosuvastatin 10 mg tablet 10 mg PO QHS tab 02/11/20 [History Last Taken 02/17/20] dutasteride 0.5 mg PO DAILY 02/18/20 [History Last Taken 02/17/20] Mucus Relief ER 1,200 mg PO BID 01/14/21 [History Last Taken 01/14/21 08:00] tamsulosin 0.4 mg PO DAILY@1730 01/14/21 [History Last Taken Unknown] budesonide 0.5 mg/2 mL suspension for nebulization 0.5 mg INHALATION BID #120 ml 01/27/21 [Rx Last Taken Unknown] Eliquis 2.5 mg PO DAILY 03/09/21 [History Last Taken Unknown] furosemide 40 mg PO BIDLX 30 Days #60 tab 03/11/21 [Rx Last Taken Unknown] azithromycin 250 mg tablet 250 mg PO DAILY 04/22/21 [History Last Taken Unknown] ipratropium 0.5 mg-albuterol 3 mg (2.5 mg base)/3 mL nebulization soln 3 ml INHALATION Q4H #180 ml 05/05/21 [Rx Last Taken Unknown] meclizine 12.5 mg tablet 12.5 mg PO TID PRN 06/04/21 [History Last Taken Unknown] Acapella #1 ea 06/23/21 [Rx Last Taken Unknown] aspirin 81 mg PO DAILY 07/24/21 [History Last Taken Unknown] prednisone 10 mg PO DAILY 07/24/21 [History Last Taken Unknown] Allergy/AdvReac Type Severity Reaction Status Date / Time atorvastatin [From Lipitor] AdvReac MUSCLE PAIN Verified 07/24/21 04:26 Family History (Updated 07/24/21 @ 06:[address] Suzie Francois MD) Father Cancer Lung Heart disease Myocardial infarction Mother Heart disease Surgical History History of bilateral hip replacements History of permanent cardiac pacemaker placement (02/18/20) S/P coronary artery bypass graft x 2 (~06/23/18) Social History housing: house Smoking Status: Former smoker how long ago did patient quit smokin years ago alcohol intake: never substance use type: does not use caffeine: No what type of physical activity do you participate in: walking frequency: daily Lab / Micro Data Result Diagrams: 07/24/21 04:30 07/24/21 16:00
[2021-07-24] MEDS: Piperacil/Tazobactam 3.375 GM Q12 PREMIX IV ×2 (09:51→22:25)
[2021-07-24 10:01] LABS: Bedside Glucose 448 mg/dL (74-106)
[2021-07-24 10:02] LABS: Anion Gap 19 (5-15); BUN 89 mg/dL (7-18); BUN/Creat Ratio 24.7 RATIO (10-20); Calcium,Total 8.5 mg/dL (8.5-10.1); Chloride 91 mmol/L (98-107); EST Glomerular Filtration Rate 17 mL/min (>60); Est Glom Filt Rate - Afr Amer 21 mL/min (>60); Estimated Creatinine Clearance 17.76 ml/min; Potassium 4.1 mmol/L (3.5-5.1); Sodium Level 125 mmol/L (136-145)
[2021-07-24 10:03] LABS: Lactic Acid 4.9 mmol/L (0.4-1.9)
[2021-07-24] MEDS: Budesonide Respules 0.5 MG/2 ML AMPUL.NEB. INHALATION ×2 (10:35→19:04)
[2021-07-24 10:51] LABS: Allen Test Positive; Base Excess -9 mmol/L (-2 to +2); Bicarbonate 17.9 mmol/L (22-26); Blood Gas Specimen Type ART; FI02 75; Mode NIV; PO2 74 mmHG (75-100); RR 12; SITE L Radial; SO2 93 % (95-99); Total Carbon Dioxide 19 mmol/L; pCO2 36.5 mmHg (35-45)
[2021-07-24 11:00] LABS: Bedside Glucose 436 mg/dL (74-106)
--- NOTE | 2021-07-24 11:10 | CASEMGMT ---
LÓPEZ BLACKWELL Face to Face with , Kanika, for initial transition planning/care coordination assessment as patient is currently on Bipap continuously and unable to participate. LÓEPZ BLACKWELL introduced self and role at [facility]. willing to participate in assessment and is able to answer all questions appropriately. Care providers, pharmacy, and demographics verified. wishes to discharge home but willing for HHC or SNF if recommended. states she has no further needs or concerns at this time. CM to follow for discharge planning needs that may arise. PCP: Liliya Specialists: Leighton, school bus aide; Duncan, chief of service Preferred Pharmacy: [facility] Insurance: [employer] Prescription Benefit: yes Living Will/HPOA: yes, [place] LNOK: , son Living Arrangements: Patient lives with in a single story home with 2 steps and railing. Patient is independent at home. Transportation: self/ DME/HHC: Patient has shower chair, lift chair, grab bars, walker, cpap, nebulizer, pulse ox, and home oxygen through [employer] with last order being for 6lpm continuously. Patient has previously been to TCU. Referral was made in February 2021 to [facility]. LÓPEZ BLACKWELL called palliative care to confirm if patient is still active. Disposition Plan: TBD by course of treatment and progress with therapy. HHC vs SNF. Audrey CANSECO, RN, CM
--- NOTE | 2021-07-24 11:10 | PCM.CONS.R ---
Assessment & Plan Assessment/Plan (1) MIRANDA (acute kidney injury): (2) DKA (diabetic ketoacidosis): QUALIFIERS: Diabetes mellitus type: type 2 Diabetes mellitus complication detail: without coma Qualified Code(s): E11.10 - Type 2 diabetes mellitus with ketoacidosis without coma (3) Acute hypoxemic respiratory failure: (4) CHF exacerbation: QUALIFIERS: Heart failure type: unspecified Qualified Code(s): I50.9 - Heart failure, unspecified PLAN: Patient was admitted for acute on chronic hypoxemic respiratory failure, placed on BiPAP. He was also admitted for DKA and is on insulin drip. We were consulted for MIRANDA. Creatinine 3.6 mg/dL on admission. Baseline creatinine is around 1.4 to 1.5 mg/dL (February 2021 creatinine 1.53 mg/dL; past UA bland). Likely MIRANDA is prerenal, multifactorial from DKA, possible sepsis, hypotension (Systolic blood pressure did drop in the 50s today). Sodium 125, likely from MIRANDA and DKA. Blood cultures, urine cultures and sputum cultures are pending; on antibiotics Zosyn and received Vanco. Ok for PICC from renal standpoint. Art has been placed, recommend strict urine output measurement. Recommend to continue with gentle IV fluids as you are doing for volume expansion and hold Lasix (home regimen furosemide 40 mg twice daily). Urine sodium 13. There has been a slight improvement in blood pressures with volume expansion. Patient is on metoprolol 12.5 mg twice daily, if no improvement in blood pressures this may need to be held. At this time there is no acute indication for MICROBIOLOGY SUPERVISOR, potassium and acid-base acceptable, volume status acceptable. I did discuss with patient and his should renal function worsen he may need MICROBIOLOGY SUPERVISOR and likely we will know if patient might need MICROBIOLOGY SUPERVISOR in the next 24 to 48 hours. Questions were answered for patient's (her mother required MICROBIOLOGY SUPERVISOR). Glucose was 718 on admission and lactic acid 4.9. Detectable troponin and patient is on heparin drip. Reviewed admission chest x-ray, no overt pulmonary edema, bibasilar atelectasis and or infiltrate. Echo was done today, EF 25 to 30%, severe LV systolic dysfunction with global LV hypokinesia (prior echo in February 2021 EF 55%). Thank you for allowing us participate in the care of Mr. Krueger, further orders will forthcoming as hospitalization evolves. HPI Consult Data Date of Consult: 07/24/21 HPI Narrative HPI Narrative: HIRAM KRUEGER, is a 85 M with past medical history significant for obstructive sleep apnea, COPD, chronic respiratory failure, DM type II who presented to emergency room early this morning with complaints of worsening shortness of breath and chest pain. Initial presentation to the emergency room, patient was tachycardic, tachypneic, oxygen saturation 86% on room air, also hypotensive with blood pressure of 97/61, placed on BiPAP and was subsequently mated to ICU for further evaluation and treatment. We were consulted for acute kidney injury. Patient is alert and oriented however most information was gathered from his . Patient does not follow with b2b account executive. In reviewing past creatinine trends, baseline creatinine has been around 1.4-1.5 milligrams per deciliter. Currently creatinine is 3.6 mg/dL, BUN 89, lactic acid 4.9, CO2 15, potassium 4.5. Patient is on insulin drip, initial glucose 718. [facility] Medical History Acute and chronic respiratory failure with hypoxia Acute blood loss anemia Atherosclerotic heart disease of [place] coronary artery without angina pectoris Atrial flutter Atrial flutter Cellulitis Chest pain Chronic renal insufficiency CKD (chronic kidney disease) stage 3, GFR 30-59 ml/min COPD (chronic obstructive pulmonary disease) COVID Depression Dizziness Essential hypertension GERD (gastroesophageal reflux disease) GI bleed Gout Healthcare associated bacterial pneumonia (Unknown) Hyperkalemia Hyperlipidemia Hypothyroidism Macrocytic anemia Mixed obstructive and restrictive ventilatory defect Morbid obesity with BMI of 40.0-44.9, adult NSTEMI (non-ST elevated myocardial infarction) Old myocardial infarction AROLDO (obstructive sleep apnea) Osteoarthritis Pacemaker Paroxysmal atrial fibrillation Pulmonary fibrosis Retinal artery occlusion Sepsis Sick sinus syndrome Home Medications levothyroxine 125 mcg PO DAILY 03/28/18 [History Last Taken 02/18/20] acetaminophen 1,000 mg PO Q6H PRN tab 07/25/18 [Rx Last Taken 01/14/21 12:00] allopurinol 300 mg tablet 300 mg PO DAILY 07/27/18 [History Last Taken 02/17/20] pantoprazole 40 mg tablet,delayed release 40 mg PO DAILY 08/16/18 [History Last Taken 02/18/20] rosuvastatin 10 mg tablet 10 mg PO QHS tab 02/11/20 [History Last Taken 02/17/20] dutasteride 0.5 mg PO DAILY 02/18/20 [History Last Taken 02/17/20] Mucus Relief ER 1,200 mg PO BID 01/14/21 [History Last Taken 01/14/21 08:00] tamsulosin 0.4 mg PO DAILY@1730 01/14/21 [History Last Taken Unknown] budesonide 0.5 mg/2 mL suspension for nebulization 0.5 mg INHALATION BID #120 ml 01/27/21 [Rx Last Taken Unknown] Eliquis 2.5 mg PO DAILY 03/09/21 [History Last Taken Unknown] furosemide 40 mg PO BIDLX 30 Days #60 tab 03/11/21 [Rx Last Taken Unknown] azithromycin 250 mg tablet 250 mg PO DAILY 04/22/21 [History Last Taken Unknown] ipratropium 0.5 mg-albuterol 3 mg (2.5 mg base)/3 mL nebulization soln 3 ml INHALATION Q4H #180 ml 05/05/21 [Rx Last Taken Unknown] meclizine 12.5 mg tablet 12.5 mg PO TID PRN 06/04/21 [History Last Taken Unknown] Acapella #1 ea 06/23/21 [Rx Last Taken Unknown] aspirin 81 mg PO DAILY 07/24/21 [History Last Taken Unknown] prednisone 10 mg PO DAILY 07/24/21 [History Last Taken Unknown] Allergy/AdvReac Type Severity Reaction Status Date / Time atorvastatin [From Lipitor] AdvReac MUSCLE PAIN Verified 07/24/21 04:26 Family History (Updated 07/24/21 @ 06:[address] Suzie Francois MD) Father Cancer Lung Heart disease Myocardial infarction Mother Heart disease Surgical History History of bilateral hip replacements History of permanent cardiac pacemaker placement (02/18/20) S/P coronary artery bypass graft x 2 (~06/23/18) Social History housing: house Smoking Status: Former smoker how long ago did patient quit smokin years ago alcohol intake: never substance use type: does not use caffeine: No what type of physical activity do you participate in: walking frequency: daily ROS ROS Narrative As per HPI past medical history Physical Exam Narrative Alert and oriented HEENT: Head is normocephalic, atraumatic, pupils equal round reactive to light Cardio: S1, S2, rhythm rate regular Respiratory: Lung sounds clear anteriorly, no rales or rhonchi noted Extremities: No pitting edema : +Art with clear urine in bag Lab / Micro Data Result Diagrams: 07/24/21 04:30 07/24/21 07:45 Labs: Laboratory Results - last 24 hr 07/24/21 04:30: WBC 10.6, RBC 4.50 L, Hgb 13.8, Hct 41.2, MCV 91.6, MCH 30.7, MCHC 33.5, RDW Std Deviation 58.2 H, RDW Coeff of Thang 17.4 H, Plt Count 246, MPV 10.7, Neut % (Auto) Not Reportable, Total Counted 100, Neutrophils % (Manual) 9 L, Band Neutrophils % 20 H, Lymphocytes % (Manual) 5 L, Monocytes % (Manual) 8, Metamyelocytes % 53 H, Myelocytes % 5 H, Differential Comment , Diff Path Review May foll, Platelet Estimate ADEQUATE, RBC Morphology NORM C+C 07/24/21 04:30: PT Cancelled, INR Cancelled, APTT Cancelled 07/24/21 04:30: Sodium 125 L, Potassium 4.5, Chloride 90 L, Carbon Dioxide 17.0 L, Anion Gap 18 H, BUN 91 H, Creatinine 3.34 H, Estim Creat Clear Calc 19.14, Est GFR (MDRD) Af Amer 23 L, Est GFR (MDRD) Non-Af 19 L, BUN/Creatinine Ratio 27.2 H, Glucose 686 H*, Calcium 8.9, Troponin I High Sens 128 H* 07/24/21 04:30: B-Natriuretic Peptide 438.5 H 07/24/21 04:30: Lactic Acid 3.5 H* 07/24/21 04:30: Acetone Level MODERATE H 07/24/21 04:30: Phosphorus 6.8 H, Magnesium 1.9 07/24/21 05:00: PT 23.4 H, INR 2.2, APTT 36.1 07/24/21 07:45: Troponin I High Sens Cancelled 07/24/21 07:45: Sodium 125 L, Potassium 4.1, Chloride 91 L, Carbon Dioxide 15.0 L, Anion Gap 19 H, BUN 89 H, Creatinine 3.60 H, Estim Creat Clear Calc 17.76, Est GFR (MDRD) Af Amer 21 L, Est GFR (MDRD) Non-Af 17 L, BUN/Creatinine Ratio 24.7 H, Glucose 718 H*, Calcium 8.5, Troponin I High Sens 144 H* 07/24/21 07:45: POC Glucose > 500 H* 07/24/21 08:20: Ur Random Sodium 13, Urine Creatinine 135.00 07/24/21 08:44: POC Glucose > 500 H* 07/24/21 09:27: Lactic Acid 4.9 H* 07/24/21 09:49: POC Glucose 448 H 07/24/21 10:48: POC Glucose 436 H Micro: Microbiology 07/24/21 08:20 Urine Catheter - Art Legionella Antigen - Final 07/24/21 08:20 Urine Catheter - Art Streptococcus pneumoniae Antigen (M - Final 07/24/21 04:44 Nasal Secretion SARS-CoV-2 Antigen (Rapid) - Final ABG Data ABG results: ABG 07/24/21 10:45 Specimen Type ART Sample Site L Radial pH 7.30 L Bicarbonate Actual 17.9 L Total CO2 19 Base Excess -9 L O2 Saturation 93 L O2 % 75 ABG pCO2 36.5 ABG pO2 74 L Herman Test Positive Respiration Rate 12 Vent Mode NIV Clinical Comments bipap 28/02 Radiology Impression Chest X-Ray 07/24/21 04:45 IMPRESSION: Bibasilar atelectasis and/or infiltrate. at 0505 Reported and signed by: Alexandro Bonds MD Electronically Signed: Alexandro Bonds MD at 5:04 EST , Echocardiogram 07/24/21 07:12 Interpretation Summary The estimated ejection fraction is 25-30 %. Severe LV systolic Dysfunction with global LV hypokinesia Significant change from prior echo 02/2021 Pacemaker lead noted on R.side Contrast echo used/Definity. is underestimated secondary to severity of LV systolic function NAEEM 1.3 cm2 Peak aortic valve gradient 34.8 mmHg. Mean aortic valve gradient 20.1 mmHg. Ordering Physician: Suzie Francois Referring Physician: Alexandro Lovell Performed By: Key Ya, ROXY, RVT
[2021-07-24 11:29] LABS: M R Staph aureus DNA By PCR Negative (Negative); Probe Check PASS; Specimen Processing Control PASS
[2021-07-24 11:56] LABS: Bedside Glucose 435 mg/dL (74-106)
[2021-07-24 12:29] LABS: Anion Gap 12 (5-15); BUN 87 mg/dL (7-18); BUN/Creat Ratio 25.3 RATIO (10-20); Calcium,Total 7.9 mg/dL (8.5-10.1); Chloride 98 mmol/L (98-107); Creatinine, Serum 3.44 mg/dL (0.70-1.30); EST Glomerular Filtration Rate 18 mL/min (>60); Est Glom Filt Rate - Afr Amer 22 mL/min (>60); Estimated Creatinine Clearance 18.59 ml/min; Glucose 442 mg/dL (74-106); Potassium 3.8 mmol/L (3.5-5.1); Sodium Level 129 mmol/L (136-145); Troponin-I HS 158 pg/mL (3.0-78.0)
[2021-07-24 12:38] LABS: Partial Thromboplast Time 76.6 Seconds (24.1-36.2)
[2021-07-24 12:46] LABS: Bedside Glucose 408 mg/dL (74-106)
--- NOTE | 2021-07-24 13:20 | RAD_ITS ---
STUDY: X-RAY CHEST REASON FOR EXAM: Male, 85 years old. Picc line placement TECHNIQUE: Single AP portable view of the chest. COMPARISON: Comparison is made with prior study done earlier today. FINDINGS: A right-sided PICC line catheter has been placed. The tip is at the junction of the superior vena cava and the right atrium. Stable appearance of the bibasilar atelectasis and/or infiltrates worse on the left lung base. Blunting of both costophrenic angles. Sternal cerclage wires and vascular clips are present from a prior sternotomy and coronary artery bypass graft procedure (CABG). A left-sided dual chamber pacemaker is seen. Normal mediastinum and joey. Normal visualized pulmonary arteries. There is atherosclerotic calcification of the aortic arch with tortuosity. There are diffuse degenerative changes of the visualized thoracic spine. Normal visualized ribs, clavicles, and shoulders. There is no demonstrated abnormality of the visualized soft tissue structures of the upper abdomen. RAD/CXR for Line Placement IMPRESSION: The tip of the right PICC line catheter is at the junction of the superior vena cava and right atrium. The remainder of the examination is unchanged. Electronically Signed: Steve Wyatt MD at 14:00 EST ,
[2021-07-24 13:33] LABS: Pathologist Review Reviewed
--- NOTE | 2021-07-24 13:39 | CASEMGMT ---
Received call back from [facility] regarding patient. Patient was seen for new referral in February 2021 but patient refused to sign with palliative care. CM will continue to re-eval for need for palliative care at discharge.
--- NOTE | 2021-07-24 13:41 | NURSING ---
PICC inserted without any issues. Site continues to bleed, so sterile gauze was placed over insertion site and bandage will need changed in 24 hrs. -S.TMeir AccessRN
[2021-07-24 14:00] LABS: Bedside Glucose 385 mg/dL (74-106)
[2021-07-24] MEDS: Acetaminophen 650 MG Suppository RC (14:07)
--- NOTE | 2021-07-24 14:19 | CHAPLAIN ---
Type of Pastoral Visit _x__ Initial Visit ___ Follow-up Visit ___ On-call Visit ___ General Patient Visit ___ Spiritual Assessment ___ Family Conference ___ Bereavement ___ Rapid Response ___ Code Blue ___ Other (describe below) Pastoral Care Referral From _x__ Patient _x__ Family _x__ Nurse ___ Physician ___ Diesel Tractor Operator ___ Arabic Teacher ___ Other (describe below) Sacrament/Intervention _x__ Active listening ___ Anointing ___ Mandaen ___ Bereavement ___ Communion ___ Cristin exploration ___ _x__ Life review _x__ Prayer ___ Reconciliation ___ Sacrament of Sick _x__ Supportive presence ___ Wedding ___ Other (describe below) Pastoral Comments this field geologist met with spouse of patient in the waiting room; pt was having a pic line placed; sat with spouse and she gave details of recent week and his health; spouse gave life review; 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
[2021-07-24 15:01] LABS: Absolute Lymphocyte Count 0.53 X10^3/uL (0.83-4.51); Absolute Neutrophil Count 3.1 X10^3/uL (2.0-7.7)
[2021-07-24 15:06] LABS: Bedside Glucose 355 mg/dL (74-106)
[2021-07-24 16:06] LABS: Bedside Glucose 320 mg/dL (74-106)
[2021-07-24 16:28] LABS: Anion Gap 10 (5-15); BUN 94 mg/dL (7-18); BUN/Creat Ratio 26.1 RATIO (10-20); Calcium,Total 8.1 mg/dL (8.5-10.1); Chloride 100 mmol/L (98-107); EST Glomerular Filtration Rate 17 mL/min (>60); Est Glom Filt Rate - Afr Amer 21 mL/min (>60); Estimated Creatinine Clearance 17.76 ml/min; Glucose 349 mg/dL (74-106); Potassium 4.3 mmol/L (3.5-5.1); Sodium Level 131 mmol/L (136-145)
[2021-07-24 17:01] LABS: Bedside Glucose 332 mg/dL (74-106)
--- NOTE | 2021-07-24 17:46 | NURSING ---
Extensive conversation with patient and regarding code status and potential intubation overnight if needed. All questions answered. states patient wishes to remain a full code for now and be intubated if necessary. Will plan to discuss further with Dr. Aj in the morning.
[2021-07-24 18:11] LABS: Bedside Glucose 284 mg/dL (74-106)
[2021-07-24 18:41] LABS: Partial Thromboplast Time 60.8 Seconds (24.1-36.2)
[2021-07-24 19:01] LABS: Bedside Glucose 248 mg/dL (74-106)
[2021-07-24] MEDS: Ipratropium/Albuterol Sulfate 3 ML AMPUL.NEB INHALATION ×2 (19:03→23:19)
[2021-07-24 20:21] LABS: Anion Gap 10 (5-15); BUN 94 mg/dL (7-18); BUN/Creat Ratio 26.1 RATIO (10-20); Calcium,Total 8.1 mg/dL (8.5-10.1); Chloride 104 mmol/L (98-107); EST Glomerular Filtration Rate 17 mL/min (>60); Est Glom Filt Rate - Afr Amer 21 mL/min (>60); Estimated Creatinine Clearance 17.76 ml/min; Glucose 231 mg/dL (74-106); Potassium 4.1 mmol/L (3.5-5.1); Sodium Level 135 mmol/L (136-145)
[2021-07-24] MEDS: Dext 5%-0.45% NS 1,000 ML 50 ML IV (21:12)
[2021-07-24 23:31] LABS: Bedside Glucose 216 mg/dL (74-106)
[2021-07-24 23:31] LABS: Bedside Glucose 203 mg/dL (74-106)
[2021-07-24 23:31] LABS: Bedside Glucose 196 mg/dL (74-106)
[2021-07-24 23:31] LABS: Bedside Glucose 216 mg/dL (74-106)
[2021-07-25] VITALS (40 sets, daily range): BP systolic 83–127; BP diastolic 48–90; PULSE 79–118; RESP 12–33; TEMP 36.8–38.3; O2SAT 89–97
[2021-07-25 00:57] LABS: Partial Thromboplast Time 55.6 Seconds (24.1-36.2)
[2021-07-25] MEDS: Ipratropium/Albuterol Sulfate 3 ML AMPUL.NEB INHALATION ×5 (02:20→19:08)
[2021-07-25 04:19] LABS: Basophil# 0.01 X10^3/uL; Hematocrit 39.1 % (40-54); Hemoglobin 12.7 g/dL (13.0-16.5); Mean Corp Hgb Conc 32.5 g/dL (32-36); Mean Corpuscular Hgb 29.9 pg (27.0-32.0); Mean Platelet Vol. 10.8 fl (6.2-12.0); Monocyte# 0.41 X10^3/uL; NRBC Flagged by Analyzer 0 % (0-5); POSITIVE DIFFERENTIAL YES; POSITIVE MORPHOLOGY YES; Platelet Count 173 K/mm3 (150-450); RBC Distribution Width SD 57.2 fl (35.1-43.9); Red Blood Count 4.25 M/mm3 (4.6-6.2); White Blood Count 10.8 K/mm3 (4.4-11.0)
[2021-07-25 04:25] LABS: Differential Indicated SCAN CRITERIA MET
[2021-07-25 04:41] LABS: Scan Smear per Review Criteria MANUAL DIFF
[2021-07-25 04:48] LABS: ALB/GLOB Ratio 0.6 RATIO (0.9-2.4); AST(SGOT) 18 U/L (15-37); Alanine Aminotransfer ALT/SGPT 12 U/L (16-61); Albumin, Serum 2.2 g/dL (3.2-5.0); Alkaline Phosphatase 62 U/L (45-117); Anion Gap 15 (5-15); BUN 91 mg/dL (7-18); BUN/Creat Ratio 28.9 RATIO (10-20); Calcium,Total 7.6 mg/dL (8.5-10.1); Chloride 104 mmol/L (98-107); Cholesterol 98 mg/dL (200); Creatinine, Serum 3.15 mg/dL (0.70-1.30); EST Glomerular Filtration Rate 20 mL/min (>60); Est Glom Filt Rate - Afr Amer 24 mL/min (>60); Globulin 3.8 g/dL (2.2-4.2); Glucose 328 mg/dL (74-106); High Density Lipoprotein 39 mg/dL; Sodium Level 136 mmol/L (136-145); Triglycerides 69 mg/dL; Very Low Density Lipoprotein 14 mg/dL (5-40)
[2021-07-25 04:55] LABS: Lymphocyte 5 % (19-41); Metamyelocyte 42 % (0-1); Monocyte 1 % (0-10); Myelocyte 1 % (0-0); Neutrophil-Band 26 % (0-5); Neutrophil-Segmented 25 % (47-70); Total Cells Counted 100 (MANUAL DIFF)
[2021-07-25 04:56] LABS: Absolute Neutrophil Count 10.1 X10^3/uL (2.0-7.7); Neutrophil # 10.12 X10^3/uL (2.7-7.7)
[2021-07-25 04:57] LABS: Absolute Lymphocyte Count 0.54 X10^3/uL (0.83-4.51); Lymphocyte # 0.54 X10^3/ul (0.83-4.51); Platelet Estimate ADEQUATE (ADEQ); Toxic Granulation 1+
[2021-07-25 04:58] LABS: Red Cell Morphology NORM C+C NORMAL (NORM C&C)
--- NOTE | 2021-07-25 05:48 | PCM.PN.INT ---
Assessment & Plan Assessment/Plan (1) Sepsis: PLAN: RECOMMENDATIONS: 1. Continue BiPAP support as tolerated. Attempt to wean to high flow nasal cannula today if feasible. 2. Continue broad-spectrum antimicrobials for now, pending further infectious work-up. 3. Continue heparin infusion. 4. Continue basal insulin and initiate sliding scale coverage. 5. Cautious advancement of diet given tenuous respiratory status. 6. Diuresis could be entertained if the patient's hemodynamic status improves. 7. Provide patient with PEP and incentive spirometer. IMPRESSIONS: 1. Acute on chronic hypoxemic respiratory failure The patient presented to the hospital with worsening shortness of breath and chest pain. The patient has a known history of a severe mixed ventilatory defect with moderate reduction in diffusing capacity and chest imaging which revealed evidence of an evolving interstitial lung process. Prior 6-minute walk test revealed the need for 2 L/min of oxygen at rest and 4 L/min with exertion. The patient's medical history is also significant for coronary disease status post CABG. Chest imaging demonstrated background interstitial changes with what appeared to be some basilar predominant opacities. The continues to require BiPAP support to maintain clinical stability. Will attempt this morning to transition the patient to high flow nasal cannula and assess clinical stability. Goal to maintain oxygen saturations at or above 90%. The patient will remain on empiric antimicrobials to cover for potential pneumonia. Continue bronchodilators as ordered. 2. Sepsis The patient presented with sepsis due to suspected pneumonia with acute sepsis related organ dysfunction as evidenced by respiratory failure requiring noninvasive positive pressure ventilatory support, acute kidney injury and lactic acidemia. In addition, the patient was noted to have bandemia on CBC differential. The patient did not receive the full sepsis fluid resuscitation of 30 cc/kg over concerns for fluid overload in the setting of congestive heart failure. The patient's blood pressures remain labile. Vasopressors can be initiated, if clinically required. Preliminary blood cultures are demonstrating growth of staph aureus. Plan to continue broad-spectrum antimicrobials for now, pending finalized culture results. 3. Chest pain/NSTEMI Initially felt to be secondary to demand ischemia in the setting of numbers 1 and 2. However, the patient's surface echocardiogram demonstrated a significant reduction in ejection fraction along with severe LV systolic dysfunction, which was not present on prior echo. Cardiology is currently following to assist with medical management. Continue heparin infusion for now. 4. Diabetic ketoacidosis Resolved. Continue basal and sliding scale insulin coverage. 5. Acute on chronic kidney disease Improving. Most likely prerenal in etiology. Anticipate further improvement in renal function with volume expansion and stabilization of hemodynamics. Continue to monitor urine output. No current indication for renal replacement therapy. Nephrology is following. 6. Advanced age/paroxysmal atrial fibrillation/anemia/hypothyroidism/sick sinus syndrome/sleep apnea Complicates care, management, recovery and prognosis. Continue home medications as indicated. The patient can be restarted on his home BiPAP with a pressure support of 12/7 centimeters of water, when clinically appropriate, with naps and nightly. TIME: 35 minutes of critical care time, independent of procedures, was spent addressing the patient's acute on chronic hypoxemic respiratory failure, sepsis, NSTEMI, DKA, acute on chronic kidney disease, review of all data and collaboration with the care team. Subjective Subjective The patient was seen and examined at the bedside this morning. Events from the last 24 hours have been reviewed. The patient is currently afebrile, hemodynamically stable and maintaining appropriate oxygen saturations on BiPAP with an FiO2 requirement of 70%. He did, however, have a fever yesterday with a T-max in the afternoon of 102.1 ?F. The patient is currently documented to be overall net +3 L for the hospitalization. The patient continues to demonstrate significant bandemia on CBC with differential. He remains on a heparin infusion. The patient's DKA resolved yesterday and he was transitioned to basal and sliding scale insulin coverage. Sodium has normalized. Creatinine has improved to 3.15. Glucose is elevated at 328. Objective Data Objective Data The patient's most recent lab work, culture data and imaging studies have all been personally reviewed. Surface echocardiogram demonstrated a moderately dilated LV with an ejection fraction of 25 to 30% with severe LV systolic dysfunction and global LV hypokinesia. The RV was noted to be mildly dilated with mild RV systolic dysfunction. Preliminary blood cultures from July 24 demonstrated gram-positive cocci in clusters. Respiratory viral panel was negative. Strep and urine Legionella antigens were negative. Sputum and urine cultures are pending. Vital Signs: Vital Signs Temp Pulse Resp BP Pulse Ox 98.6 F 108 H 28 H 88/69 L 95 07/25/21 03:00 07/25/21 04:48 07/25/21 04:48 07/25/21 03:00 07/25/21 04:48 Oxygen Flow Rate (L/min) 75 Oxygen Delivery Method Bi-pap Weight: 118 kg Body Mass Index (BMI) 33.4 Intake & Output: Intake and Output for Last 24 Hours 07/23/21 07/24/21 07/25/21 23:59 23:59 23:59 Intake Total 3951.35 / 3978.55 77.2 / 77.2 Output Total 625 / 675 325 / 325 Balance 3326.35 / 3303.55 -247.8 / -247.8 Lab / Micro Data Attestation: I reviewed the patient's lab results. Result Diagrams: 07/25/21 04:10 07/25/21 04:10 Labs: Laboratory Results - last 24 hr 07/24/21 04:30: Absolute Neuts (auto) 3.1, Absolute Lymphs (auto) 0.53 L, Diff Path Review Reviewed 07/24/21 04:30: Lactic Acid 3.5 H* 07/24/21 04:30: Acetone Level MODERATE H 07/24/21 04:30: Phosphorus 6.8 H, Magnesium 1.9 07/24/21 07:45: Troponin I High Sens Cancelled 07/24/21 07:45: Sodium 125 L, Potassium 4.1, Chloride 91 L, Carbon Dioxide 15.0 L, Anion Gap 19 H, BUN 89 H, Creatinine 3.60 H, Estim Creat Clear Calc 17.76, Est GFR (MDRD) Af Amer 21 L, Est GFR (MDRD) Non-Af 17 L, BUN/Creatinine Ratio 24.7 H, Glucose 718 H*, Calcium 8.5, Troponin I High Sens 144 H* 07/24/21 07:45: POC Glucose > 500 H* 07/24/21 08:20: Ur Random Sodium 13, Urine Creatinine 135.00 07/24/21 08:44: POC Glucose > 500 H* 07/24/21 09:25: MRSA (PCR) Negative 07/24/21 09:27: Lactic Acid 4.9 H* 07/24/21 09:49: POC Glucose 448 H 07/24/21 10:48: POC Glucose 436 H 07/24/21 11:48: Sodium 129 L, Potassium 3.8, Chloride 98, Carbon Dioxide 19.0 L, Anion Gap 12, BUN 87 H, Creatinine 3.44 H, Estim Creat Clear Calc 18.59, Est GFR (MDRD) Af Amer 22 L, Est GFR (MDRD) Non-Af 18 L, BUN/Creatinine Ratio 25.3 H, Glucose 442 H, Calcium 7.9 L, Troponin I High Sens 158 H* 07/24/21 11:49: POC Glucose 435 H 07/24/21 12:20: APTT 76.6 H 07/24/21 12:41: POC Glucose 408 H 07/24/21 13:56: POC Glucose 385 H 07/24/21 15:02: POC Glucose 355 H 07/24/21 16:00: Sodium 131 L, Potassium 4.3, Chloride 100, Carbon Dioxide 21.0, Anion Gap 10, BUN 94 H, Creatinine 3.60 H, Estim Creat Clear Calc 17.76, Est GFR (MDRD) Af Amer 21 L, Est GFR (MDRD) Non-Af 17 L, BUN/Creatinine Ratio 26.1 H, Glucose 349 H, Calcium 8.1 L 07/24/21 16:00: POC Glucose 320 H 07/24/21 16:55: POC Glucose 332 H 07/24/21 18:03: POC Glucose 284 H 07/24/21 18:05: APTT 60.8 H 07/24/21 18:58: POC Glucose 248 H 07/24/21 19:50: Sodium 135 L, Potassium 4.1, Chloride 104, Carbon Dioxide 21.0, Anion Gap 10, BUN 94 H, Creatinine 3.60 H, Estim Creat Clear Calc 17.76, Est GFR (MDRD) Af Amer 21 L, Est GFR (MDRD) Non-Af 17 L, BUN/Creatinine Ratio 26.1 H, Glucose 231 H, Calcium 8.1 L 07/24/21 20:08: POC Glucose 216 H 07/24/21 21:06: POC Glucose 216 H 07/24/21 22:15: POC Glucose 196 H 07/24/21 23:21: POC Glucose 203 H 07/25/21 00:10: APTT 55.6 H 07/25/21 04:10: WBC 10.8, RBC 4.25 L, Hgb 12.7 L, Hct 39.1 L, MCV 92.0, MCH 29.9, MCHC 32.5, RDW Std Deviation 57.2 H, RDW Coeff of Thang 17.0 H, Plt Count 173, MPV 10.8, Immature Gran % (Auto) ELEVATOR REPAIRER APPRENTICE, Neut % (Auto) ELEVATOR REPAIRER APPRENTICE, Lymph % (Auto) ELEVATOR REPAIRER APPRENTICE, [place] % (Auto) ELEVATOR REPAIRER APPRENTICE, Eos % (Auto) ELEVATOR REPAIRER APPRENTICE, Baso % (Auto) ELEVATOR REPAIRER APPRENTICE, Absolute Neuts (auto) 10.1 H, Absolute Lymphs (auto) 0.54 L, Total Counted 100, Neutrophils % (Manual) 25 L, Band Neutrophils % 26 H, Lymphocytes % (Manual) 5 L, Monocytes % (Manual) 1, Metamyelocytes % 42 H, Myelocytes % 1 H, Nucleated RBC % 0, Diff Path Review May foll, Toxic Granulation 1+, Platelet Estimate ADEQUATE, RBC Morphology NORM C+C 07/25/21 04:10: Sodium 136, Potassium 4.0, Chloride 104, Carbon Dioxide 17.0 L, Anion Gap 15, BUN 91 H, Creatinine 3.15 H, Estim Creat Clear Calc 20.30, Est GFR (MDRD) Af Amer 24 L, Est GFR (MDRD) Non-Af 20 L, BUN/Creatinine Ratio 28.9 H, Glucose 328 H, Calcium 7.6 L, Total Bilirubin 0.70, AST 18, ALT 12 L, Alkaline Phosphatase 62, Total Protein 6.0 L, Albumin 2.2 L, Globulin 3.8, Albumin/Globulin Ratio 0.6 L, Triglycerides 69, Cholesterol 98, LDL Cholesterol 45, VLDL Cholesterol 14, HDL Cholesterol 39 L Micro: Microbiology 07/24/21 05:31 Blood Culture (Wb) - Anticubital Right Blood Culture - Preliminary 07/24/21 05:20 Blood Culture (Wb) - Left Wrist Blood Culture - Preliminary 07/24/21 08:10 Mucosa - Nasopharyngeal Respiratory Panel (PCR) - Final 07/24/21 08:20 Urine Catheter - Art Legionella Antigen - Final 07/24/21 08:20 Urine Catheter - Art Streptococcus pneumoniae Antigen (M - Final 07/24/21 04:44 Nasal Secretion SARS-CoV-2 Antigen (Rapid) - Final ABG Data ABG results: ABG 07/24/21 10:45 Specimen Type ART Sample Site L Radial pH 7.30 L Bicarbonate Actual 17.9 L Total CO2 19 Base Excess -9 L O2 Saturation 93 L O2 % 75 ABG pCO2 36.5 ABG pO2 74 L Herman Test Positive Respiration Rate 12 Vent Mode NIV Clinical Comments bipap 28/02 Radiography Diagnostic Testing: Radiology Impression Echocardiogram 07/24/21 07:12 Interpretation Summary The estimated ejection fraction is 25-30 %. Severe LV systolic Dysfunction with global LV hypokinesia Significant change from prior echo 02/2021 Pacemaker lead noted on R.side Contrast echo used/Definity. is underestimated secondary to severity of LV systolic function NAEEM 1.3 cm2 Peak aortic valve gradient 34.8 mmHg. Mean aortic valve gradient 20.1 mmHg. Ordering Physician: Suzie Francois Referring Physician: Alexandro Lovell Performed By: Key Ya, ROXY, RVT Chest X-Ray 07/24/21 13:20 IMPRESSION: The tip of the right PICC line catheter is at the junction of the superior vena cava and right atrium. The remainder of the examination is unchanged. Electronically Signed: Steve Wyatt MD at 14:00 EST , Physical Exam Const alert General Appearance: cooperative, ill appearing and on BiPAP Nutritional Appearance: obese HEENT normocephalic and head/scalp atraumatic Teeth and Gingiva: edentulous Eyes PERRL, EOMs intact bilaterally and conjunctivae normal Neck supple General: trachea midline Chest inspection of chest normal Resp Effort and Inspection: tachypneic Auscultation: rhonchi and diminished lung sounds Cardio S1 normal heart sound and S2 normal heart sound Rhythm: abnormal rhythm GI normal to inspection, nondistended, normoactive bowel sounds Extremity General Extremity: edema bilateral lower extremity Details: trace; Negative for clubbing Skin no rashes or lesions noted Neuro CN's II-XII intact bilaterally, moves all extremities and no focal motor deficits Psych cooperative and affect normal Charges/Coding Procedures Hospitalists Procedures: [id number] Critial Care 1st Hr
--- NOTE | 2021-07-25 05:55 | EKG12_ITS ---
Test Reason : AM EKG Blood Pressure : / mmHG Vent. Rate : 103 BPM Atrial Rate : 104 BPM P-R Int : 000 ms QRS Dur : 116 ms QT Int : 374 ms P-R-T Axes : 000 -48 095 degrees QTc Int : 489 ms Atrial fibrillation Left axis deviation Inferior infarct , age undetermined Abnormal ECG When compared with ECG of 24-JUL-2021 08:12, MANUAL COMPARISON REQUIRED, DATA IS UNCONFIRMED Confirmed by STEVE PEOPLES, MINOR ([id number]), video news editor ZULY PRAKASH ([id number]) on 07/27/2021 11:27:59 AM Referred By: LUCAS Confirmed By:MINOR WILSON MD
[2021-07-25] MEDS: Insulin Lispro 100 UNIT/ML INSULN.PEN SC ×3 (06:39→21:27)
[2021-07-25] MEDS: Budesonide Respules 0.5 MG/2 ML AMPUL.NEB. INHALATION ×2 (06:39→19:08)
[2021-07-25 07:14] LABS: Partial Thromboplast Time 53.1 Seconds (24.1-36.2)
--- NOTE | 2021-07-25 07:33 | PN.HOSP_ITS ---
Subjective Subjective Patient seen weaned off BiPAP this a.m. His anion gap is 15. Insulin drip has since been weaned off Objective Data Objective Data Vital Signs: Vital Signs Temp Pulse Resp BP Pulse Ox 99.1 F 114 H 27 H 127/90 H 89 07/25/21 07:00 07/25/21 07:00 07/25/21 07:00 07/25/21 07:00 07/25/21 07:00 Oxygen Flow Rate (L/min) 15 Oxygen Delivery Method High Flow Weight: 121.2 kg Body Mass Index (BMI) 33.4 Intake & Output: Intake and Output for Last 24 Hours 07/23/21 07/24/21 07/25/21 23:59 23:59 23:59 Intake Total 3951.35 / 3978.55 77.2 / 77.2 Output Total 625 / 675 550 / 550 Balance 3326.35 / 3303.55 -472.8 / -472.8 Lab / Micro Data Result Diagrams: 07/25/21 04:10 07/25/21 04:10 Labs: Laboratory Results - last 24 hr 07/24/21 04:30: Absolute Neuts (auto) 3.1, Absolute Lymphs (auto) 0.53 L, Diff Path Review Reviewed 07/24/21 07:45: Troponin I High Sens Cancelled 07/24/21 07:45: Sodium 125 L, Potassium 4.1, Chloride 91 L, Carbon Dioxide 15.0 L, Anion Gap 19 H, BUN 89 H, Creatinine 3.60 H, Estim Creat Clear Calc 17.76, Est GFR (MDRD) Af Amer 21 L, Est GFR (MDRD) Non-Af 17 L, BUN/Creatinine Ratio 24.7 H, Glucose 718 H*, Calcium 8.5, Troponin I High Sens 144 H* 07/24/21 07:45: POC Glucose > 500 H* 07/24/21 08:20: Ur Random Sodium 13, Urine Creatinine 135.00 07/24/21 08:44: POC Glucose > 500 H* 07/24/21 09:25: MRSA (PCR) Negative 07/24/21 09:27: Lactic Acid 4.9 H* 07/24/21 09:49: POC Glucose 448 H 07/24/21 10:48: POC Glucose 436 H 07/24/21 11:48: Sodium 129 L, Potassium 3.8, Chloride 98, Carbon Dioxide 19.0 L, Anion Gap 12, BUN 87 H, Creatinine 3.44 H, Estim Creat Clear Calc 18.59, Est GFR (MDRD) Af Amer 22 L, Est GFR (MDRD) Non-Af 18 L, BUN/Creatinine Ratio 25.3 H, Glucose 442 H, Calcium 7.9 L, Troponin I High Sens 158 H* 07/24/21 11:49: POC Glucose 435 H 07/24/21 12:20: APTT 76.6 H 07/24/21 12:41: POC Glucose 408 H 07/24/21 13:56: POC Glucose 385 H 07/24/21 15:02: POC Glucose 355 H 07/24/21 16:00: Sodium 131 L, Potassium 4.3, Chloride 100, Carbon Dioxide 21.0, Anion Gap 10, BUN 94 H, Creatinine 3.60 H, Estim Creat Clear Calc 17.76, Est GFR (MDRD) Af Amer 21 L, Est GFR (MDRD) Non-Af 17 L, BUN/Creatinine Ratio 26.1 H, Glucose 349 H, Calcium 8.1 L 07/24/21 16:00: POC Glucose 320 H 07/24/21 16:55: POC Glucose 332 H 07/24/21 18:03: POC Glucose 284 H 07/24/21 18:05: APTT 60.8 H 07/24/21 18:58: POC Glucose 248 H 07/24/21 19:50: Sodium 135 L, Potassium 4.1, Chloride 104, Carbon Dioxide 21.0, Anion Gap 10, BUN 94 H, Creatinine 3.60 H, Estim Creat Clear Calc 17.76, Est GFR (MDRD) Af Amer 21 L, Est GFR (MDRD) Non-Af 17 L, BUN/Creatinine Ratio 26.1 H, Glucose 231 H, Calcium 8.1 L 07/24/21 20:08: POC Glucose 216 H 07/24/21 21:06: POC Glucose 216 H 07/24/21 22:15: POC Glucose 196 H 07/24/21 23:21: POC Glucose 203 H 07/25/21 00:10: APTT 55.6 H 07/25/21 04:10: WBC 10.8, RBC 4.25 L, Hgb 12.7 L, Hct 39.1 L, MCV 92.0, MCH 29.9 , MCHC 32.5, RDW Std Deviation 57.2 H, RDW Coeff of Thang 17.0 H, Plt Count 173, MPV 10.8, Immature Gran % (Auto) MEDICAL INFORMATION OFFICER, Neut % (Auto) MEDICAL INFORMATION OFFICER, Lymph % (Auto) MEDICAL INFORMATION OFFICER, [place] % (Auto) MEDICAL INFORMATION OFFICER, Eos % (Auto) MEDICAL INFORMATION OFFICER, Baso % (Auto) MEDICAL INFORMATION OFFICER, Absolute Neuts (auto) 10.1 H, Absolute Lymphs (auto) 0.54 L, Total Counted 100, Neutrophils % (Manual) 25 L, Band Neutrophils % 26 H, Lymphocytes % (Manual) 5 L, Monocytes % (Manual) 1, Metamyelocytes % 42 H, Myelocytes % 1 H, Nucleated RBC % 0, Diff Path Review May foll, Toxic Granulation 1+, Platelet Estimate ADEQUATE, RBC Morphology NORM C+C 07/25/21 04:10: Sodium 136, Potassium 4.0, Chloride 104, Carbon Dioxide 17.0 L, Anion Gap 15, BUN 91 H, Creatinine 3.15 H, Estim Creat Clear Calc 20.30, Est GFR (MDRD) Af Amer 24 L, Est GFR (MDRD) Non-Af 20 L, BUN/Creatinine Ratio 28.9 H, Glucose 328 H, Calcium 7.6 L, Total Bilirubin 0.70, AST 18, ALT 12 L, Alkaline Phosphatase 62, Total Protein 6.0 L, Albumin 2.2 L, Globulin 3.8, Albumin/Globulin Ratio 0.6 L, Triglycerides 69, Cholesterol 98, LDL Cholesterol 45, VLDL Cholesterol 14, HDL Cholesterol 39 L 07/25/21 06:37: APTT 53.1 H Micro: Microbiology 07/24/21 05:31 Blood Culture (Wb) - Anticubital Right Blood Culture - Preliminary 07/24/21 05:20 Blood Culture (Wb) - Left Wrist Blood Culture - Preliminary Staphylococcus aureus 07/24/21 08:10 Mucosa - Nasopharyngeal Respiratory Panel (PCR) - Final 07/24/21 08:20 Urine Catheter - Art Legionella Antigen - Final 07/24/21 08:20 Urine Catheter - Art Streptococcus pneumoniae Antigen (M - Final 07/24/21 04:44 Nasal Secretion SARS-CoV-2 Antigen (Rapid) - Final ABG Data ABG results: ABG 07/24/21 10:45 Specimen Type ART Sample Site L Radial pH 7.30 L Bicarbonate Actual 17.9 L Total CO2 19 Base Excess -9 L O2 Saturation 93 L O2 % 75 ABG pCO2 36.5 ABG pO2 74 L Herman Test Positive Respiration Rate 12 Vent Mode NIV Clinical Comments bipap 28/02 Radiography Diagnostic Testing: Radiology Impression Echocardiogram 07/24/21 07:12 Interpretation Summary The estimated ejection fraction is 25-30 %. Severe LV systolic Dysfunction with global LV hypokinesia Significant change from prior echo 02/2021 Pacemaker lead noted on R.side Contrast echo used/Definity. is underestimated secondary to severity of LV systolic function NAEEM 1.3 cm2 Peak aortic valve gradient 34.8 mmHg. Mean aortic valve gradient 20.1 mmHg. Ordering Physician: Suzie Francois Referring Physician: Alexandro Lovell Performed By: Key Ya, ROXY, RVT Chest X-Ray 07/24/21 13:20 IMPRESSION: The tip of the right PICC line catheter is at the junction of the superior vena cava and right atrium. The remainder of the examination is unchanged. Electronically Signed: Steve Wyatt MD at 14:00 EST , Physical Exam Narrative GENERAL: Dyspneic at rest HEENT: Atraumatic; EYES; Anicteric, Normal Conjunctiva NECK; supple, normal thyroid, RESPIRATORY: Diminished to auscultation, tachypneic CARDIOVASCULAR: Regular S1 S2, tachycardic GI: soft, normoactive bowel sounds, : No Renal angle tenderness; EXTREMITIES: No edema, no clubbing, MUSCULOSKELETAL: no muscle wasting NEURO: Awake; no lateralizing signs. SKIN: No Rash PSYCH; Flat affect Assessment & Plan Assessment/Plan (1) DKA (diabetic ketoacidosis): QUALIFIERS: Diabetes mellitus complication detail: without coma Diabetes mellitus type: type 2 Qualified Code(s): E11.10 - Type 2 diabetes mellitus with ketoacidosis without coma (2) Community acquired pneumonia: QUALIFIERS: Laterality: unspecified laterality Qualified Code(s): J18.9 - Pneumonia, unspecified organism (3) MIRANDA (acute kidney injury): (4) Acute hypoxemic respiratory failure: PLAN: Patient is an 85-year-old M with multiple comorbidities who presented with shortness of breath chest pain and elevated blood glucose level. An assessment of acute hypoxic respiratory failure and diabetic ketoacidosis made admitted to the intensive care unit for further management 1. Acute on chronic hypoxic respiratory failure ?Multifactorial including COPD with acute exacerbation, pulmonary fibrosis from recent COVID 19 pneumonia in January 2021. Patient was placed on noninvasive ventilation BiPAP admitted to the intensive care unit consultation placed to pulmonary medicine. Patient was placed on empiric antibiotic therapy pending culture results obtained on admission. Patient remains significantly at risk for possible intubation. Consult placed to pulmonary medicine Case discussed with Dr. Aj ?07/25/2021; patient has been weaned off BiPAP however remains on high flow oxygen 2. Sepsis secondary to pneumonia ?Present on admission patient was managed with IV fluid resuscitation as well as broad-spectrum antibiotic therapy. Cultures obtained on admission so far positive for gram-positive cocci final identification and sensitivities pending 3. Diabetic ketoacidosis ?Managed with IV fluids, correction of electrolyte as well as insulin with every 4 BMPs ordered and subsequent adjustment made to therapy ?07/25/2021; anion gap down to 15. Patient insulin drip discontinued started on scheduled long-acting insulin with sliding scale coverage 4. Elevated troponin acute non-STEMI ?Patient did present with chest pain but had no EKG changes consistent with acute ischemia. Admitted to intensive care unit serial cardiac enzymes ordered in addition to a 2D echo and consultation placed to cardiology. As part of patient management he was placed on heparin drip, antiplatelet therapy with aspirin, statin therapy and low-dose beta-blockade ?07/25/2021; patient was seen in consultation by cardiology, recommendation is optimization of medical therapy for now in view of patient's impaired kidney function. Echo obtained demonstrated EF of 25 to 30% with severe LV systolic dysfunction with global LV hypokinesis 5. Acute kidney injury ?Superimposed on chronic kidney disease stage IIIa. Patient baseline creatinine 1.41.5 creatinine on admission was 3.34. Currently on IV fluid with serial BMPs ordered ?07/25/2021 no improvement in kidney function 6. Chronic congestive heart failure ?Echo obtained on 03/10/2021 demonstrated EF of 50% ?07/26/2019 2 repeat echo obtained did reveal EF of 20 to 30% consistent with heart failure with reduced ejection fraction 7. Coronary artery disease -Status post CABG on 05/02/2019 with a TANNER to the LAD and SVG to OM1 8. Paroxysmal atrial fibrillation ?Rate controlled, on systemic anticoagulation with Eliquis which is currently being held since patient was placed on heparin 9. Anemia - Secondary to chronic disorder monitoring H&H and transfuse if patient becomes symptomatic or hemoglobin falls below 7 10. Dyslipidemia -Patient is on statin therapy, continued at home dose 11. Hypothyroidism - Patient is on levothyroxine home dose continued 12. BPH ?Patient is on Flomax as well as dutasteride; discontinue 13. Gout ?Patient is on allopurinol 14. GERD ?Patient's PPI 15. Class I obesity with BMI of 33.2 ?Weight loss advised 16. Sick sinus syndrome ?Status post pacemaker placement 17. Obstructive sleep apnea ?PAP therapy at night 18. 9. Essential hypertension ?Patient blood pressure stable 19. DVT prophylaxis ?On systemic anticoagulation Charges/Coding Visit Charges Inpatient E&M: 50456 Init Hosp L3
[2021-07-25 07:40] LABS: Bedside Glucose 314 mg/dL (74-106)
[2021-07-25 08:02] LABS: Hemoglobin A1c 11.7 % (3.8-5.6)
[2021-07-25] MEDS: Heparin Injection (Vial) 5,000 UNIT/ML VIAL IV (08:56)
[2021-07-25] MEDS: guaiFENesin 1,200 MG Tablet 1200 MG PO ×2 (09:15→21:24)
[2021-07-25] MEDS: Levothyroxine 125 MCG Tablet PO (09:15)
[2021-07-25] MEDS: Finasteride 5 MG Tablet PO (09:16)
[2021-07-25] MEDS: Pantoprazole Sodium 40 MG Tablet PO (09:16)
[2021-07-25] MEDS: Metoprolol Tartrate 25 MG Tablet 12.5 MG PO ×2 (09:16→21:26)
[2021-07-25] MEDS: Aspirin E.C. 81 MG Tablet PO (09:16)
[2021-07-25] MEDS: Piperacil/Tazobactam 3.375 GM Q12 PREMIX IV ×2 (09:21→21:21)
[2021-07-25] MEDS: Allopurinol 300 MG Tablet PO (10:57)
[2021-07-25] MEDS: Acetaminophen 325 MG Tablet 650 MG PO ×2 (10:57→21:21)
[2021-07-25 11:51] LABS: Bedside Glucose 456 mg/dL (74-106)
--- NOTE | 2021-07-25 12:09 | PCM.PN.REN ---
Subjective Subjective Following for MIRANDA on CKD. The patient is currently off of BiPAP. He denies chest pain. Shortness of breath is better. There is no nausea. Objective Data Objective Data Vital Signs: Vital Signs Temp Pulse Resp BP Pulse Ox 98.9 F 113 H 27 H 99/64 93 07/25/21 07:58 07/25/21 12:00 07/25/21 10:29 07/25/21 09:16 07/25/21 07:58 Oxygen Flow Rate (L/min) 15 Oxygen Delivery Method Nasal Cannula Weight: 121.2 kg Body Mass Index (BMI) 33.4 Intake & Output: Intake and Output for Last 24 Hours 07/23/21 07/24/21 07/25/21 23:59 23:59 23:59 Intake Total 3951.35 / 3978.55 377.2 / 377.2 Output Total 625 / 675 550 / 550 Balance 3326.35 / 3303.55 -172.8 / -172.8 Lab / Micro Data Result Diagrams: 07/25/21 04:10 07/25/21 04:10 Labs: Laboratory Results - last 24 hr 07/24/21 04:30: Absolute Neuts (auto) 3.1, Absolute Lymphs (auto) 0.53 L, Diff Path Review Reviewed 07/24/21 11:48: Sodium 129 L, Potassium 3.8, Chloride 98, Carbon Dioxide 19.0 L, Anion Gap 12, BUN 87 H, Creatinine 3.44 H, Estim Creat Clear Calc 18.59, Est GFR (MDRD) Af Amer 22 L, Est GFR (MDRD) Non-Af 18 L, BUN/Creatinine Ratio 25.3 H, Glucose 442 H, Calcium 7.9 L, Troponin I High Sens 158 H* 07/24/21 12:20: APTT 76.6 H 07/24/21 12:41: POC Glucose 408 H 07/24/21 13:56: POC Glucose 385 H 07/24/21 15:02: POC Glucose 355 H 07/24/21 16:00: Sodium 131 L, Potassium 4.3, Chloride 100, Carbon Dioxide 21.0, Anion Gap 10, BUN 94 H, Creatinine 3.60 H, Estim Creat Clear Calc 17.76, Est GFR (MDRD) Af Amer 21 L, Est GFR (MDRD) Non-Af 17 L, BUN/Creatinine Ratio 26.1 H, Glucose 349 H, Calcium 8.1 L 07/24/21 16:00: POC Glucose 320 H 07/24/21 16:55: POC Glucose 332 H 07/24/21 18:03: POC Glucose 284 H 07/24/21 18:05: APTT 60.8 H 07/24/21 18:58: POC Glucose 248 H 07/24/21 19:50: Sodium 135 L, Potassium 4.1, Chloride 104, Carbon Dioxide 21.0, Anion Gap 10, BUN 94 H, Creatinine 3.60 H, Estim Creat Clear Calc 17.76, Est GFR (MDRD) Af Amer 21 L, Est GFR (MDRD) Non-Af 17 L, BUN/Creatinine Ratio 26.1 H, Glucose 231 H, Calcium 8.1 L 07/24/21 20:08: POC Glucose 216 H 07/24/21 21:06: POC Glucose 216 H 07/24/21 22:15: POC Glucose 196 H 07/24/21 23:21: POC Glucose 203 H 07/25/21 00:10: APTT 55.6 H 07/25/21 04:10: WBC 10.8, RBC 4.25 L, Hgb 12.7 L, Hct 39.1 L, MCV 92.0, MCH 29.9, MCHC 32.5, RDW Std Deviation 57.2 H, RDW Coeff of Thang 17.0 H, Plt Count 173, MPV 10.8, Immature Gran % (Auto) ASSOCIATE PROFESSOR [employer], Neut % (Auto) ASSOCIATE PROFESSOR [employer], Lymph % (Auto) ASSOCIATE PROFESSOR [employer], [place] % (Auto) ASSOCIATE PROFESSOR [employer], Eos % (Auto) ASSOCIATE PROFESSOR [employer], Baso % (Auto) ASSOCIATE PROFESSOR [employer], Absolute Neuts (auto) 10.1 H, Absolute Lymphs (auto) 0.54 L, Total Counted 100, Neutrophils % (Manual) 25 L, Band Neutrophils % 26 H, Lymphocytes % (Manual) 5 L, Monocytes % (Manual) 1, Metamyelocytes % 42 H, Myelocytes % 1 H, Nucleated RBC % 0, Diff Path Review May foll, Toxic Granulation 1+, Platelet Estimate ADEQUATE, RBC Morphology NORM C+C 07/25/21 04:10: Sodium 136, Potassium 4.0, Chloride 104, Carbon Dioxide 17.0 L, Anion Gap 15, BUN 91 H, Creatinine 3.15 H, Estim Creat Clear Calc 20.30, Est GFR (MDRD) Af Amer 24 L, Est GFR (MDRD) Non-Af 20 L, BUN/Creatinine Ratio 28.9 H, Glucose 328 H, Calcium 7.6 L, Total Bilirubin 0.70, AST 18, ALT 12 L, Alkaline Phosphatase 62, Total Protein 6.0 L, Albumin 2.2 L, Globulin 3.8, Albumin/Globulin Ratio 0.6 L, Triglycerides 69, Cholesterol 98, LDL Cholesterol 45, VLDL Cholesterol 14, HDL Cholesterol 39 L 07/25/21 04:10: Hemoglobin A1c 11.7 H 07/25/21 06:29: POC Glucose 314 H 07/25/21 06:37: APTT 53.1 H 07/25/21 11:42: POC Glucose 456 H* Micro: Microbiology 07/24/21 08:55 Urine Catheter - Art Urine Culture - Preliminary Culture exhibits no growth. 07/24/21 21:55 Sputum, Expectorated/Coughed Gram Stain - Final 07/24/21 05:31 Blood Culture (Wb) - Anticubital Right Blood Culture - Preliminary 07/24/21 05:20 Blood Culture (Wb) - Left Wrist Blood Culture - Preliminary Staphylococcus aureus 07/24/21 08:10 Mucosa - Nasopharyngeal Respiratory Panel (PCR) - Final 07/24/21 08:20 Urine Catheter - Art Legionella Antigen - Final 07/24/21 08:20 Urine Catheter - Art Streptococcus pneumoniae Antigen (M - Final 07/24/21 04:44 Nasal Secretion SARS-CoV-2 Antigen (Rapid) - Final Radiography Diagnostic Testing: Radiology Impression Chest X-Ray 07/24/21 13:20 IMPRESSION: The tip of the right PICC line catheter is at the junction of the superior vena cava and right atrium. The remainder of the examination is unchanged. Electronically Signed: Steve Wyatt MD at 14:00 EST , Physical Exam Narrative Alert and oriented HEENT: Head is normocephalic, atraumatic, pupils equal round reactive to light Cardio: S1, S2, rhythm rate regular Respiratory: Lung sounds clear anteriorly, no rales or rhonchi noted Extremities: No pitting edema : +Art with clear urine in bag Assessment & Plan Assessment/Plan (1) MIRANDA (acute kidney injury): PLAN: -The patient has underlying chronic kidney disease with serum creatinine of 1.5 mg/dL at baseline. -MIRANDA is prerenal with fractional excretion of sodium of less than 1% on 07/24/2021. -Renal function slightly better today with serum creatinine coming down from 3.60 to 3.15 mg/dL today. -The patient is nonoliguric. Serum bicarbonate level is low but acceptable for now. There is no signs of volume overload. Potassium is not high. -There is no need for kidney replacement therapy today. -We will continue to follow the patient on current treatment. (2) DKA (diabetic ketoacidosis): QUALIFIERS: Diabetes mellitus type: type 2 Diabetes mellitus complication detail: without coma Qualified Code(s): E11.10 - Type 2 diabetes mellitus with ketoacidosis without coma PLAN: -Management as per primary service. (3) Acute hypoxemic respiratory failure: PLAN: -The patient needs INV intermittently. -He is being treated for possible pneumonia. -Overall management as per .net developer. (4) CHF exacerbation: QUALIFIERS: Heart failure type: unspecified Qualified Code(s): I50.9 - Heart failure, unspecified PLAN: -The patient has decreased ejection fraction at 25 to 30%. -However, I do not think the patient is volume overloaded or decompensated at this point. -Holding diuretic. -We will monitor volume status closely with you.
[2021-07-25 14:36] LABS: Partial Thromboplast Time 61.1 Seconds (24.1-36.2)
--- NOTE | 2021-07-25 14:38 | PN.CARD_ITS ---
Subjective Subjective Seen and evaluated today in the intensive care unit along with the nursing staff hypotensive with systolic blood pressure in the range of 90s No symptoms of chest pain patient is alert orientated x3 Is still short of breath Objective Data Vital Signs: Vital Signs Temp Pulse Resp BP Pulse Ox 99 F 85 22 H 88/51 L 96 07/25/21 14:27 07/25/21 14:27 07/25/21 14:27 07/25/21 14:27 07/25/21 14:27 Oxygen Flow Rate (L/min) 15 Oxygen Delivery Method Nasal Cannula Weight: 267 lb 3.204 oz Body Mass Index (BMI) 33.4 Intake & Output: Intake and Output for Last 24 Hours 07/23/21 07/24/21 07/25/21 23:59 23:59 23:59 Intake Total 3951.35 / 3978.55 850.0 / 850.0 Output Total 625 / 675 1050 / 1050 Balance 3326.35 / 3303.55 -200.0 / -200.0 Lab / Micro Data Result Diagrams: 07/25/21 04:10 07/25/21 04:10 Labs: Laboratory Results - last 24 hr 07/24/21 04:30: Absolute Neuts (auto) 3.1, Absolute Lymphs (auto) 0.53 L 07/24/21 15:02: POC Glucose 355 H 07/24/21 16:00: Sodium 131 L, Potassium 4.3, Chloride 100, Carbon Dioxide 21.0, Anion Gap 10, BUN 94 H, Creatinine 3.60 H, Estim Creat Clear Calc 17.76, Est GFR (MDRD) Af Amer 21 L, Est GFR (MDRD) Non-Af 17 L, BUN/Creatinine Ratio 26.1 H, Glucose 349 H, Calcium 8.1 L 07/24/21 16:00: POC Glucose 320 H 07/24/21 16:55: POC Glucose 332 H 07/24/21 18:03: POC Glucose 284 H 07/24/21 18:05: APTT 60.8 H 07/24/21 18:58: POC Glucose 248 H 07/24/21 19:50: Sodium 135 L, Potassium 4.1, Chloride 104, Carbon Dioxide 21.0, Anion Gap 10, BUN 94 H, Creatinine 3.60 H, Estim Creat Clear Calc 17.76, Est GFR (MDRD) Af Amer 21 L, Est GFR (MDRD) Non-Af 17 L, BUN/Creatinine Ratio 26.1 H, Glucose 231 H, Calcium 8.1 L 07/24/21 20:08: POC Glucose 216 H 07/24/21 21:06: POC Glucose 216 H 07/24/21 22:15: POC Glucose 196 H 07/24/21 23:21: POC Glucose 203 H 07/25/21 00:10: APTT 55.6 H 07/25/21 04:10: WBC 10.8, RBC 4.25 L, Hgb 12.7 L, Hct 39.1 L, MCV 92.0, MCH 29.9, MCHC 32.5, RDW Std Deviation 57.2 H, RDW Coeff of Thang 17.0 H, Plt Count 173, MPV 10.8, Immature Gran % (Auto) SKYDIVING INSTRUCTOR, Neut % (Auto) SKYDIVING INSTRUCTOR, Lymph % (Auto) SKYDIVING INSTRUCTOR, [place] % (Auto) SKYDIVING INSTRUCTOR, Eos % (Auto) SKYDIVING INSTRUCTOR, Baso % (Auto) SKYDIVING INSTRUCTOR, Absolute Neuts (auto) 10.1 H, Absolute Lymphs (auto) 0.54 L, Total Counted 100, Neutrophils % (Manual) 25 L , Band Neutrophils % 26 H, Lymphocytes % (Manual) 5 L, Monocytes % (Manual) 1, Metamyelocytes % 42 H, Myelocytes % 1 H, Nucleated RBC % 0, Diff Path Review May foll, Toxic Granulation 1+, Platelet Estimate ADEQUATE, RBC Morphology NORM C+C 07/25/21 04:10: Sodium 136, Potassium 4.0, Chloride 104, Carbon Dioxide 17.0 L, Anion Gap 15, BUN 91 H, Creatinine 3.15 H, Estim Creat Clear Calc 20.30, Est GFR (MDRD) Af Amer 24 L, Est GFR (MDRD) Non-Af 20 L, BUN/Creatinine Ratio 28.9 H, Glucose 328 H, Calcium 7.6 L, Total Bilirubin 0.70, AST 18, ALT 12 L, Alkaline Phosphatase 62, Total Protein 6.0 L, Albumin 2.2 L, Globulin 3.8, Albumin/Globulin Ratio 0.6 L, Triglycerides 69, Cholesterol 98, LDL Cholesterol 45, VLDL Cholesterol 14, HDL Cholesterol 39 L 07/25/21 04:10: Hemoglobin A1c 11.7 H 07/25/21 06:29: POC Glucose 314 H 07/25/21 06:37: APTT 53.1 H 07/25/21 11:42: POC Glucose 456 H* 07/25/21 14:22: APTT 61.1 H Micro: Microbiology 07/24/21 05:31 Blood Culture (Wb) - Anticubital Right Blood Culture - Preliminary Staphylococcus aureus 07/24/21 05:20 Blood Culture (Wb) - Left Wrist Blood Culture - Preliminary Staphylococcus aureus 07/24/21 08:55 Urine Catheter - Art Urine Culture - Preliminary Culture exhibits no growth. 07/24/21 21:55 Sputum, Expectorated/Coughed Gram Stain - Final 07/24/21 08:10 Mucosa - Nasopharyngeal Respiratory Panel (PCR) - Final 07/24/21 08:20 Urine Catheter - Art Legionella Antigen - Final 07/24/21 08:20 Urine Catheter - Art Streptococcus pneumoniae Antigen (M - Final Cardiology Labs/Tests 07/24/21 04:30: Absolute Neuts (auto) 3.1 07/24/21 16:00: Sodium 131 L, Potassium 4.3, Chloride 100, Carbon Dioxide 21.0, Anion Gap 10, BUN 94 H, Creatinine 3.60 H, Est GFR (MDRD) Af Amer 21 L, Est GFR (MDRD) Non-Af 17 L, BUN/Creatinine Ratio 26.1 H, Glucose 349 H, Calcium 8.1 L 07/24/21 18:05: APTT 60.8 H 07/24/21 19:50: Sodium 135 L, Potassium 4.1, Chloride 104, Carbon Dioxide 21.0, Anion Gap 10, BUN 94 H, Creatinine 3.60 H, Est GFR (MDRD) Af Amer 21 L, Est GFR (MDRD) Non-Af 17 L, BUN/Creatinine Ratio 26.1 H, Glucose 231 H, Calcium 8.1 L 07/25/21 00:10: APTT 55.6 H 07/25/21 04:10: WBC 10.8, RBC 4.25 L, Hgb 12.7 L, Hct 39.1 L, MCV 92.0, MCH 29. 9, MCHC 32.5, Plt Count 173, MPV 10.8, Immature Gran % (Auto) SKYDIVING INSTRUCTOR, Neut % (Auto) SKYDIVING INSTRUCTOR, Lymph % (Auto) SKYDIVING INSTRUCTOR, [place] % (Auto) SKYDIVING INSTRUCTOR, Eos % (Auto) SKYDIVING INSTRUCTOR, Baso % (Auto) SKYDIVING INSTRUCTOR, Absolute Neuts (auto) 10.1 H, Total Counted 100, Neutrophils % (Manual) 25 L, Band Neutrophils % 26 H, Lymphocytes % (Manual) 5 L, Monocytes % (Manual) 1, Metamyelocytes % 42 H, Myelocytes % 1 H, Nucleated RBC % 0 07/25/21 04:10: Sodium 136, Potassium 4.0, Chloride 104, Carbon Dioxide 17.0 L, Anion Gap 15, BUN 91 H, Creatinine 3.15 H, Est GFR (MDRD) Af Amer 24 L, Est GFR (MDRD) Non-Af 20 L, BUN/Creatinine Ratio 28.9 H, Glucose 328 H, Calcium 7.6 L, Total Bilirubin 0.70, Triglycerides 69, Cholesterol 98, LDL Cholesterol 45, VLDL Cholesterol 14, HDL Cholesterol 39 L 07/25/21 04:10: Hemoglobin A1c 11.7 H 07/25/21 06:37: APTT 53.1 H 07/25/21 14:22: APTT 61.1 H Rhythm: EKG: ECHO: Stress Test: Cardiac Cath: PCI: CT Surgery: Holter monitor: EPS: PPM: CXR: Chest CT Scan: 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 transplanted heart: [place] heart Qualified Code(s): I25.10 - Atherosclerotic heart disease of [place] coronary artery without angina pectoris (3) NSTEMI (non-ST elevated myocardial infarction): PLAN: 85-year-old patient history of CAD CABG 2019 Remarkable decrease in his LV function and this presentation with ejection fraction in the range of 25 to 30% significant change from prior EF Has a elevated cardiac biomarkers and also has sepsis and currently on antibiotic treatment IV Also he had been admitted to diabetic ketoacidosis which is improving and has acute on chronic kidney disease Paroxysmal atrial fibrillation Cardiac care plan recommendations; Patient has no active symptoms of chest pain. Patient also being treated for immunity acquired pneumonia currently on IV antibiotic His electrolytes have been corrected with improvement of serum sodium from 1 29- 1 36 today. 1. Very high risk patient for invasive cardiac evaluation at this point Due to risk of contrast-induced nephropathy and dialysis 2. We will continue to monitor and follow-up clinically (4) Severe sepsis: (5) MIRANDA (acute kidney injury):
[2021-07-25 16:51] LABS: Bedside Glucose > 500 mg/dL (74-106)
[2021-07-25] MEDS: Tamsulosin HCl 0.4 MG Capsule PO (17:25)
[2021-07-25] MEDS: Insulin Lispro 100 UNIT/ML INSULN.PEN 20 UNIT SC ×2 (17:26→22:00)
[2021-07-25 21:21] LABS: Bedside Glucose 478 mg/dL (74-106)
[2021-07-25] MEDS: guaiFENesin/Codeine 5 ML UDC 10 ML PO (21:22)
[2021-07-25] MEDS: Insulin Lispro 100 UNIT/ML INSULN.PEN 10 UNIT SC (21:23)
[2021-07-25] MEDS: Atorvastatin Calcium 20 MG Tablet PO (21:26)
[2021-07-25 21:32] LABS: Partial Thromboplast Time 56.2 Seconds (24.1-36.2)
[2021-07-26] VITALS (49 sets, daily range): BP systolic 76–120; BP diastolic 49–82; PULSE 70–92; RESP 15–31; TEMP 36.5–37.3; O2SAT 89–96
--- NOTE | 2021-07-26 03:16 | CPS ---
patient is on home PAP unit at this time
[2021-07-26 04:35] LABS: Hematocrit 36.7 % (40-54); Hemoglobin 11.9 g/dL (13.0-16.5); Mean Corp Hgb Conc 32.4 g/dL (32-36); Mean Corpuscular Hgb 29.4 pg (27.0-32.0); Mean Corpuscular Volume 90.6 fL (80-94); Mean Platelet Vol. 10.9 fl (6.2-12.0); POSITIVE COUNT YES; POSITIVE DIFFERENTIAL YES; POSITIVE MORPHOLOGY YES; Platelet Count 179 K/mm3 (150-450); RBC Distribution Width SD 56.5 fl (35.1-43.9); Red Blood Count 4.05 M/mm3 (4.6-6.2); White Blood Count 15.9 K/mm3 (4.4-11.0)
[2021-07-26 04:40] LABS: Partial Thromboplast Time 58.4 Seconds (24.1-36.2)
[2021-07-26 04:47] LABS: Anion Gap 8 (5-15); BUN 86 mg/dL (7-18); BUN/Creat Ratio 30.3 RATIO (10-20); Calcium,Total 8.8 mg/dL (8.5-10.1); Chloride 109 mmol/L (98-107); Creatinine, Serum 2.84 mg/dL (0.70-1.30); EST Glomerular Filtration Rate 23 mL/min (>60); Est Glom Filt Rate - Afr Amer 27 mL/min (>60); Estimated Creatinine Clearance 22.51 ml/min; Glucose 295 mg/dL (74-106); Potassium 3.4 mmol/L (3.5-5.1); Sodium Level 139 mmol/L (136-145)
[2021-07-26 04:56] LABS: Differential Indicated MANUAL DIFF
[2021-07-26 05:12] LABS: Vancomycin, Random Level 10.3 ug/mL (0.0-15.0)
--- NOTE | 2021-07-26 05:47 | PN.CC_ITS ---
Assessment & Plan Assessment/Plan (1) Sepsis: PLAN: RECOMMENDATIONS: 1. Wean supplemental oxygen as tolerated to maintain saturations at or above 90%. 2. Continue PAP therapy per home regimen with naps and nightly. 3. Wean Levophed to maintain a mean arterial pressure at or above 65 mmHg. 4. Continue broad-spectrum antimicrobials. 5. Continue heparin infusion. 6. Continue basal and sliding scale insulin coverage. 7. Continue bronchopulmonary hygiene with PEP and incentive spirometry. IMPRESSIONS: 1. Acute on chronic hypoxemic respiratory failure The patient presented to the hospital with worsening shortness of breath and c hest pain. The patient has a known history of a severe mixed ventilatory defect with moderate reduction in diffusing capacity and chest imaging which revealed evidence of an evolving interstitial lung process. Prior 6-minute walk test revealed the need for 2 L/min of oxygen at rest and 4 L/min with exertion. The patient's medical history is also significant for coronary disease status post CABG. Chest imaging demonstrated background interstitial changes with what appeared to be some basilar predominant opacities. The patient initially required continuous BiPAP support but was able to be weaned to high flow nasal cannula with PAP support nightly, per home regimen. Goal to maintain oxygen saturations at or above 90%. The patient will remain on empiric antimicrobials to cover for potential pneumonia. Continue bronchodilators as ordered. Diuresis can be entertained, pending further improvement in hemodynamics and renal function. 2. Septic shock The patient presented with sepsis due to suspected pneumonia with acute sepsis related organ dysfunction as evidenced by respiratory failure requiring noninvasive positive pressure ventilatory support, acute kidney injury and lactic acidemia. In addition, the patient was noted to have bandemia on CBC differential. The patient did not receive the full sepsis fluid resuscitation of 30 cc/kg over concerns for fluid overload in the setting of congestive heart failure. Due to tenuous hemodynamics, the patient had to be initiated on Levophed to maintain hemodynamic stability. Plan to wean vasopressors as tolerated to maintain a mean arterial pressure at or above 65 mmHg. Preliminary blood cultures are demonstrating growth of staph aureus. Plan to continue broad-spectrum antimicrobials for now, pending finalized culture results. 3. Chest pain/NSTEMI Initially felt to be secondary to demand ischemia in the setting of numbers 1 and 2. However, the patient's surface echocardiogram demonstrated a significant reduction in ejection fraction along with severe LV systolic dysfunction, which was not present on prior echo. Cardiology is currently following to assist with medical management. Continue heparin infusion for now. 4. Diabetic ketoacidosis Resolved. Continue basal and sliding scale insulin coverage. 5. Acute on chronic kidney disease Improving. Most likely prerenal in etiology. Anticipate further improvement in renal function with volume expansion and stabilization of hemodynamics. Continue to monitor urine output. No current indication for renal replacement therapy. Nephrology is following. 6. Advanced age/paroxysmal atrial fibrillation/anemia/hypothyroidism/sick sinus syndrome/sleep apnea Complicates care, management, recovery and prognosis. Continue home medications as indicated. The patient can be continued on his home BiPAP with a pressure support of 12/7 centimeters of water, when clinically appropriate, with naps and nightly. TIME: 33 minutes of critical care time, independent of procedures, was spent addressing the patient's acute on chronic hypoxemic respiratory failure, septic shock, NSTEMI, DKA, acute on chronic kidney disease, review of all data and collaboration with the care team. Subjective Subjective The patient was seen and examined at the bedside this morning. Events from the last 24 hours have been reviewed. The patient is currently afebrile and maintaining appropriate oxygen saturations on his home Pap therapy. Yesterday, the patient was able to be weaned to high flow nasal cannula. The patient is currently requiring low-dose Levophed at 3 mcg/min to maintain hemodynamic stability. The patient is currently documented to be overall net +2.9 L for the hospitalization. He remains on a continuous heparin infusion along with empiric broad-spectrum antimicrobials. White count is elevated at 16,000. Potassium is low at 3.4. Creatinine has improved to 2.8. Objective Data Objective Data The patient's most recent lab work, culture data and imaging studies have all been personally reviewed. Surface echocardiogram demonstrated a moderately dilated LV with an ejection fraction of 25 to 30% with severe LV systolic dysfunction and global LV hypokinesia. The RV was noted to be mildly dilated with mild RV systolic dysfunction. Preliminary blood cultures from July 24 demonstrated gram-positive cocci in clusters. Respiratory viral panel was negative. Strep and urine Legionella antigens were negative. Sputum and urine cultures are pending. Vital Signs: Vital Signs Temp Pulse Resp BP Pulse Ox 98.3 F 70 22 H 102/60 90 07/26/21 04:00 07/26/21 05:30 07/26/21 05:30 07/26/21 05:30 07/26/21 05:30 Oxygen Flow Rate (L/min) 5 Oxygen Delivery Method CPAP Weight: 121.2 kg Body Mass Index (BMI) 33.4 Intake & Output: Intake and Output for Last 24 Hours 07/24/21 07/25/21 07/27/21 23:59 23:59 00:59 Intake Total 3951.35 / 3978.55 2655.29 / 2664.69 98.40 / 98.40 Output Total 625 / 675 2300 / 2700 850 / 850 Balance 3326.35 / 3303.55 355.29 / -35.31 -751.60 / -751.60 Lab / Micro Data Attestation: I reviewed the patient's lab results. Result Diagrams: 07/26/21 04:15 07/26/21 04:15 Labs: Laboratory Results - last 24 hr 07/25/21 04:10: Absolute Neuts (auto) 10.1 H, Absolute Lymphs (auto) 0.54 L, Total Counted 100, Neutrophils % (Manual) 25 L, Band Neutrophils % 26 H, Lymphocytes % (Manual) 5 L, Monocytes % (Manual) 1, Metamyelocytes % 42 H, Myelocytes % 1 H, Diff Path Review May foll, Toxic Granulation 1+, Platelet Estimate ADEQUATE, RBC Morphology NORM C+C 07/25/21 04:10: Sodium 136, Potassium 4.0, Chloride 104, Carbon Dioxide 17.0 L, Anion Gap 15, BUN 91 H, Creatinine 3.15 H, Estim Creat Clear Calc 20.30, Est GFR (MDRD) Af Amer 24 L, Est GFR (MDRD) Non-Af 20 L, BUN/Creatinine Ratio 28.9 H, Glucose 328 H, Calcium 7.6 L, Total Bilirubin 0.70, AST 18, ALT 12 L, Alkaline Phosphatase 62, Total Protein 6.0 L, Albumin 2.2 L, Globulin 3.8, Albumin/Globulin Ratio 0.6 L, Triglycerides 69, Cholesterol 98, LDL Cholesterol 45, VLDL Cholesterol 14, HDL Cholesterol 39 L 07/25/21 04:10: Hemoglobin A1c 11.7 H 07/25/21 06:29: POC Glucose 314 H 07/25/21 06:37: APTT 53.1 H 07/25/21 11:42: POC Glucose 456 H* 07/25/21 14:22: APTT 61.1 H 07/25/21 16:47: POC Glucose > 500 H* 07/25/21 21:00: APTT 56.2 H 07/25/21 21:08: POC Glucose 478 H* 07/26/21 04:15: Random Vancomycin 10.3 07/26/21 04:15: WBC 15.9 H, RBC 4.05 L, Hgb 11.9 L, Hct 36.7 L, MCV 90.6, MCH 29.4, MCHC 32.4, RDW Std Deviation 56.5 H, RDW Coeff of Thang 17.0 H, Plt Count 179, MPV 10.9, Neut % (Auto) Not Reportable 07/26/21 04:15: Sodium 139, Potassium 3.4 L, Chloride 109 H, Carbon Dioxide 22.0, Anion Gap 8, BUN 86 H, Creatinine 2.84 H, Estim Creat Clear Calc 22.51, Est GFR (MDRD) Af Amer 27 L, Est GFR (MDRD) Non-Af 23 L, BUN/Creatinine Ratio 30.3 H, Glucose 295 H, Calcium 8.8 07/26/21 04:15: APTT 58.4 H Micro: Microbiology 07/24/21 05:31 Blood Culture (Wb) - Anticubital Right Blood Culture - Preliminary Staphylococcus aureus 07/24/21 05:20 Blood Culture (Wb) - Left Wrist Blood Culture - Preliminary Staphylococcus aureus 07/24/21 08:55 Urine Catheter - Art Urine Culture - Preliminary Culture exhibits no growth. 07/24/21 21:55 Sputum, Expectorated/Coughed Gram Stain - Final 07/24/21 08:10 Mucosa - Nasopharyngeal Respiratory Panel (PCR) - Final 07/24/21 08:20 Urine Catheter - Art Legionella Antigen - Final 07/24/21 08:20 Urine Catheter - Art Streptococcus pneumoniae Antigen (M - Final 07/24/21 04:44 Nasal Secretion SARS-CoV-2 Antigen (Rapid) - Final Physical Exam Const alert General Appearance: cooperative and on BiPAP Nutritional Appearance: obese HEENT normocephalic and head/scalp atraumatic Teeth and Gingiva: edentulous Eyes PERRL, EOMs intact bilaterally and conjunctivae normal Neck supple General: trachea midline Chest inspection of chest normal Resp Effort and Inspection: tachypneic Auscultation: rales and diminished lung sounds Cardio regular rate, S1 normal heart sound and S2 normal heart sound GI normal to inspection, nondistended, normoactive bowel sounds Extremity General Extremity: edema bilateral lower extremity Details: trace; Negative for clubbing Skin no rashes or lesions noted Neuro CN's II-XII intact bilaterally, moves all extremities and no focal motor deficits Psych cooperative and affect normal Charges/Coding Procedures Hospitalists Procedures: [id number] Critial Care 1st Hr
[2021-07-26 05:56] LABS: Neutrophil-Band 25 % (0-5); Neutrophil-Segmented 56 % (47-70); Total Cells Counted 100 (MANUAL DIFF)
[2021-07-26 05:57] LABS: Lymphocyte 5 % (19-41); Metamyelocyte 5 % (0-1); Monocyte 9 % (0-10)
[2021-07-26 06:01] LABS: Absolute Lymphocyte Count 0.79 X10^3/uL (0.83-4.51); Absolute Neutrophil Count 13.7 X10^3/uL (2.0-7.7); Lymphocyte # 0.79 X10^3/ul (0.83-4.51); Neutrophil # 13.67 X10^3/uL (2.7-7.7)
[2021-07-26 06:02] LABS: Platelet Estimate ADEQUATE (ADEQ); Red Cell Morphology NORM C+C NORMAL (NORM C&C); Toxic Granulation 1+
[2021-07-26] MEDS: Levothyroxine 125 MCG Tablet PO (06:07)
[2021-07-26] MEDS: Potassium Chloride 20mEq/100mL 20 MEQ/100 ML IV.SOLN. 100 MEQ IV BOLUS ×2 (06:07→07:15)
[2021-07-26 06:46] LABS: Bedside Glucose 249 mg/dL (74-106)
--- NOTE | 2021-07-26 07:36 | PCM.PN.HOSP ---
Subjective Subjective Patient blood cultures positive for Staph aureus, repeat cultures obtained and if positive patient may need to undergo further evaluation with OBINNA. Initial TTE obtained did not mention any evidence of endocarditis. Consult has subsequently been placed to ID. Patient remains in ICU and is currently on Levophed Objective Data Objective Data Vital Signs: Vital Signs Temp Pulse Resp BP Pulse Ox 98.3 F 76 20 H 96/65 92 07/26/21 04:00 07/26/21 07:25 07/26/21 07:15 07/26/21 07:15 07/26/21 07:15 Oxygen Flow Rate (L/min) 5 Oxygen Delivery Method CPAP Weight: 119.4 kg Body Mass Index (BMI) 33.4 Intake & Output: Intake and Output for Last 24 Hours 07/24/21 07/25/21 07/27/21 23:59 23:59 00:59 Intake Total 3951.35 / 3978.55 2655.29 / 2664.69 429.93 / 429.93 Output Total 625 / 675 2300 / 2700 1250 / 1250 Balance 3326.35 / 3303.55 355.29 / -35.31 -820.07 / -820.07 Lab / Micro Data Result Diagrams: 07/26/21 04:15 07/26/21 04:15 Labs: Laboratory Results - last 24 hr 07/25/21 04:10: Hemoglobin A1c 11.7 H 07/25/21 06:29: POC Glucose 314 H 07/25/21 06:37: APTT 53.1 H 07/25/21 11:42: POC Glucose 456 H* 07/25/21 14:22: APTT 61.1 H 07/25/21 16:47: POC Glucose > 500 H* 07/25/21 21:00: APTT 56.2 H 07/25/21 21:08: POC Glucose 478 H* 07/26/21 04:15: Random Vancomycin 10.3 07/26/21 04:15: WBC 15.9 H, RBC 4.05 L, Hgb 11.9 L, Hct 36.7 L, MCV 90.6, MCH 29.4, MCHC 32.4, RDW Std Deviation 56.5 H, RDW Coeff of Thang 17.0 H, Plt Count 179, MPV 10.9, Neut % (Auto) Not Reportable, Absolute Neuts (auto) 13.7 H, Absolute Lymphs (auto) 0.79 L, Total Counted 100, Neutrophils % (Manual) 56, Band Neutrophils % 25 H, Lymphocytes % (Manual) 5 L, Monocytes % (Manual) 9, Metamyelocytes % 5 H, Diff Path Review May foll, Toxic Granulation 1+, Platelet Estimate ADEQUATE, RBC Morphology NORM C+C 07/26/21 04:15: Sodium 139, Potassium 3.4 L, Chloride 109 H, Carbon Dioxide 22.0, Anion Gap 8, BUN 86 H, Creatinine 2.84 H, Estim Creat Clear Calc 22.51, Est GFR (MDRD) Af Amer 27 L, Est GFR (MDRD) Non-Af 23 L, BUN/Creatinine Ratio 30.3 H, Glucose 295 H, Calcium 8.8 07/26/21 04:15: APTT 58.4 H 07/26/21 06:38: POC Glucose 249 H Micro: Microbiology 07/24/21 05:31 Blood Culture (Wb) - Anticubital Right Blood Culture - Final Staphylococcus aureus 07/24/21 05:20 Blood Culture (Wb) - Left Wrist Blood Culture - Final Staphylococcus aureus 07/24/21 08:55 Urine Catheter - Art Urine Culture - Preliminary Culture exhibits no growth. 07/24/21 21:55 Sputum, Expectorated/Coughed Gram Stain - Final 07/24/21 08:10 Mucosa - Nasopharyngeal Respiratory Panel (PCR) - Final 07/24/21 08:20 Urine Catheter - Art Legionella Antigen - Final 07/24/21 08:20 Urine Catheter - Art Streptococcus pneumoniae Antigen (M - Final 07/24/21 04:44 Nasal Secretion SARS-CoV-2 Antigen (Rapid) - Final Physical Exam Narrative GENERAL: Dyspneic at rest HEENT: Atraumatic; EYES; Anicteric, Normal Conjunctiva NECK; supple, normal thyroid, RESPIRATORY: Diminished to auscultation, tachypneic CARDIOVASCULAR: Regular S1 S2, tachycardic GI: soft, normoactive bowel sounds, : No Renal angle tenderness; EXTREMITIES: No edema, no clubbing, MUSCULOSKELETAL: no muscle wasting NEURO: Awake; no lateralizing signs. SKIN: No Rash PSYCH; Flat affect Assessment & Plan Assessment/Plan (1) DKA (diabetic ketoacidosis): QUALIFIERS: Diabetes mellitus type: type 2 Diabetes mellitus complication detail: without coma Qualified Code(s): E11.10 - Type 2 diabetes mellitus with ketoacidosis without coma (2) Community acquired pneumonia: QUALIFIERS: Laterality: unspecified laterality Qualified Code(s): J18.9 - Pneumonia, unspecified organism (3) MIRANDA (acute kidney injury): (4) Acute hypoxemic respiratory failure: PLAN: Patient is an 85-year-old M with multiple comorbidities who presented with shortness of breath chest pain and elevated blood glucose level. An assessment of acute hypoxic respiratory failure and diabetic ketoacidosis made admitted to the intensive care unit for further management 1. Acute on chronic hypoxic respiratory failure ?Multifactorial including COPD with acute exacerbation, pulmonary fibrosis from recent COVID 19 pneumonia in January 2021. Patient was placed on noninvasive ventilation BiPAP admitted to the intensive care unit consultation placed to pulmonary medicine. Patient was placed on empiric antibiotic therapy pending culture results obtained on admission. Patient remains significantly at risk for possible intubation. Consult placed to pulmonary medicine Case discussed with Dr. Aj ?07/25/2021; patient has been weaned off BiPAP however remains on high flow oxygen 2. Sepsis secondary to pneumonia ?Present on admission patient was managed with IV fluid resuscitation as well as broad-spectrum antibiotic therapy. Cultures obtained on admission so far positive for gram-positive cocci final identification and sensitivities pending -07/26/2021; Patient blood cultures positive for Staph aureus, repeat cultures obtained and if positive patient may need to undergo further evaluation with OBINNA. Initial TTE obtained did not mention any evidence of endocarditis. Consult has subsequently been placed to ID. Patient remains in ICU and is currently on Levophed 3. Diabetic ketoacidosis ?Managed with IV fluids, correction of electrolyte as well as insulin with every 4 BMPs ordered and subsequent adjustment made to therapy ?07/25/2021; anion gap down to 15. Patient insulin drip discontinued started on scheduled long-acting insulin with sliding scale coverage 07/26/2021; patient DKA resolved switch to long-acting insulin with subsequent adjustment made in view of significant hypoglycemia 4. Elevated troponin acute non-STEMI ?Patient did present with chest pain but had no EKG changes consistent with acute ischemia. Admitted to intensive care unit serial cardiac enzymes ordered in addition to a 2D echo and consultation placed to cardiology. As part of patient management he was placed on heparin drip, antiplatelet therapy with aspirin, statin therapy and low-dose beta-blockade ?07/25/2021; patient was seen in consultation by cardiology, recommendation is optimization of medical therapy for now in view of patient's impaired kidney function. Echo obtained demonstrated EF of 25 to 30% with severe LV systolic dysfunction with global LV hypokinesis 5. Acute kidney injury ?Superimposed on chronic kidney disease stage IIIa. Patient baseline creatinine 1.41.5 creatinine on admission was 3.34. Currently on IV fluid with serial BMPs ordered ?07/25/2021 no improvement in kidney function -07/26/2021; creatinine down to 2.84, peaked at 3.6 6. Chronic congestive heart failure ?Echo obtained on 03/10/2021 demonstrated EF of 50% ?07/26/2019 2 repeat echo obtained did reveal EF of 20 to 30% consistent with heart failure with reduced ejection fraction 7. Coronary artery disease -Status post CABG on 05/02/2019 with a TANNER to the LAD and SVG to OM1 8. Paroxysmal atrial fibrillation ?Rate controlled, on systemic anticoagulation with Eliquis which is currently being held since patient was placed on heparin 9. Anemia - Secondary to chronic disorder monitoring H&H and transfuse if patient becomes symptomatic or hemoglobin falls below 7 10. Dyslipidemia -Patient is on statin therapy, continued at home dose 11. Hypothyroidism - Patient is on levothyroxine home dose continued 12. BPH ?Patient is on Flomax as well as dutasteride; discontinue 13. Gout ?Patient is on allopurinol 14. GERD ?Patient's PPI 15. Class I obesity with BMI of 33.2 ?Weight loss advised 16. Sick sinus syndrome ?Status post pacemaker placement 17. Obstructive sleep apnea ?PAP therapy at night 18. Essential hypertension ?Patient blood pressure on the low side, antihypertensives on hold 19. DVT prophylaxis ?On systemic anticoagulation 20. Hypokalemia -Corrected per protocol Charges/Coding Visit Charges Inpatient E&M: 31680 Subs Hosp L3
[2021-07-26] MEDS: Ipratropium/Albuterol Sulfate 3 ML AMPUL.NEB INHALATION ×4 (07:55→18:57)
[2021-07-26] MEDS: Budesonide Respules 0.5 MG/2 ML AMPUL.NEB. INHALATION ×2 (07:55→18:57)
--- NOTE | 2021-07-26 07:58 | CPS ---
PATIENT USING HOME BIPAP UNIT WITH 02 BLEED IN.
[2021-07-26] MEDS: Insulin Lispro 100 UNIT/ML INSULN.PEN SC ×4 (08:01→20:54)
[2021-07-26] MEDS: Insulin Lispro 100 UNIT/ML INSULN.PEN 15 UNIT SC ×4 (08:01→20:56)
[2021-07-26] MEDS: Finasteride 5 MG Tablet PO (08:38)
[2021-07-26] MEDS: Metoprolol Tartrate 25 MG Tablet 12.5 MG PO ×2 (08:38→20:53)
[2021-07-26] MEDS: Aspirin E.C. 81 MG Tablet PO (08:38)
[2021-07-26] MEDS: Pantoprazole Sodium 40 MG Tablet PO (08:38)
[2021-07-26] MEDS: guaiFENesin 1,200 MG Tablet 1200 MG PO ×2 (08:38→20:54)
[2021-07-26] MEDS: Allopurinol 300 MG Tablet PO (08:39)
[2021-07-26 09:46] LABS: Bedside Glucose 269 mg/dL (74-106)
--- NOTE | 2021-07-26 10:51 | PHA.PHARE_ITS ---
Consult Pharmacy has been consulted to manage selected antiobiotic: Vancomycin Type of Consult: Follow-up Suspected Infection: Pneumonia Prior Doses of Antibiotics Received/Current Regimen: Received 2000mg iv x 1 on 07.24.21 @0904. Labs: Sodium 139 mmol/L (136-145) 07/26/21 04:15 Potassium 3.4 mmol/L (3.5-5.1) L 07/26/21 04:15 Chloride 109 mmol/L (98-107) H 07/26/21 04:15 Carbon Dioxide 22.0 mmol/L (21.0-32.0) 07/26/21 04:15 Anion Gap 8 (5-15) 07/26/21 04:15 BUN 86 mg/dL (7-18) H 07/26/21 04:15 Creatinine 2.84 mg/dL (0.70-1.30) H 07/26/21 04:15 Est GFR (MDRD) Af Amer 27 mL/min (>60) L 07/26/21 04:15 Est GFR (MDRD) Non-Af 23 mL/min (>60) L 07/26/21 04:15 BUN/Creatinine Ratio 30.3 RATIO (10-20) H 07/26/21 04:15 Glucose 295 mg/dL (74-106) H 07/26/21 04:15 Random Vancomycin 10.3 ug/mL (0.0-15.0) 07/26/21 04:15 Microbiology: Microbiology 07/24/21 08:55 Urine Catheter - Art Urine Culture - Final Culture exhibits no growth. 07/24/21 05:31 Blood Culture (Wb) - Anticubital Right Blood Culture - Final Staphylococcus aureus 07/24/21 05:20 Blood Culture (Wb) - Left Wrist Blood Culture - Final Staphylococcus aureus 07/24/21 21:55 Sputum, Expectorated/Coughed Gram Stain - Final 07/24/21 08:10 Mucosa - Nasopharyngeal Respiratory Panel (PCR) - Final 07/24/21 08:20 Urine Catheter - Art Legionella Antigen - Final 07/24/21 08:20 Urine Catheter - Art Streptococcus pneumoniae Antigen (M - Final 07/24/21 04:44 Nasal Secretion SARS-CoV-2 Antigen (Rapid) - Final Weight used for dosin kg Estimated Creatinine Clearance: 27 ml/min Goal Trough: 15-20 mcg/mL Pharmacy Plan for Drug Dosing: Random level this AM ~43 hrs post dose was 10.3 with desired range of 15- 20mcg/ml. Renal function of Cr 2.84 with calculated CrCl of ~27 ml/min using adjusted body weight of 96.9kg. Have ordered 1750mg iv x 1 today with a repeat random level 24hrs post dose in AM 07.27.21. Pharmacy Service will continue to monitor and adjust dosing as required. Follow-Up Labs: Trough Vancomycin - random level 07.27.21 @1000
[2021-07-26 11:30] LABS: Bedside Glucose 264 mg/dL (74-106)
[2021-07-26] MEDS: Piperacil/Tazobactam 3.375 GM Q12 PREMIX IV ×2 (11:59→20:53)
--- NOTE | 2021-07-26 12:39 | PN.CARD_ITS ---
Subjective Subjective Patient seen and evaluated today and discussed with the nursing staff in ICU Sitting out in chair, at bedside, no events from last night Shortness of breath is improving. Noted blood cultures positive for staph aureus Still hypertensive and has been on Levophed Objective Data Vital Signs: Vital Signs Temp Pulse Resp BP Pulse Ox 98.1 F 84 25 H 94/52 L 92 07/26/21 12:00 07/26/21 12:00 07/26/21 12:00 07/26/21 12:00 07/26/21 12:00 Oxygen Flow Rate (L/min) 8 Oxygen Delivery Method Nasal Cannula Weight: 263 lb 3.711 oz Body Mass Index (BMI) 33.4 Intake & Output: Intake and Output for Last 24 Hours 07/24/21 07/25/21 07/27/21 23:59 23:59 00:59 Intake Total 3951.35 / 3978.55 2655.29 / 2664.69 1070.17 / 1070.17 Output Total 625 / 675 2300 / 2700 1250 / 1250 Balance 3326.35 / 3303.55 355.29 / -35.31 -179.83 / -179.83 Lab / Micro Data Result Diagrams: 07/26/21 04:15 07/26/21 04:15 Labs: Laboratory Results - last 24 hr 07/25/21 11:42: POC Glucose 456 H* 07/25/21 14:22: APTT 61.1 H 07/25/21 16:47: POC Glucose > 500 H* 07/25/21 21:00: APTT 56.2 H 07/25/21 21:08: POC Glucose 478 H* 07/26/21 04:15: Random Vancomycin 10.3 07/26/21 04:15: WBC 15.9 H, RBC 4.05 L, Hgb 11.9 L, Hct 36.7 L, MCV 90.6, MCH 29.4, MCHC 32.4, RDW Std Deviation 56.5 H, RDW Coeff of Thang 17.0 H, Plt Count 179, MPV 10.9, Neut % (Auto) Not Reportable, Absolute Neuts (auto) 13.7 H, Absolute Lymphs (auto) 0.79 L, Total Counted 100, Neutrophils % (Manual) 56, Band Neutrophils % 25 H, Lymphocytes % (Manual) 5 L, Monocytes % (Manual) 9, Metamyelocytes % 5 H, Diff Path Review May foll, Toxic Granulation 1+, Platelet Estimate ADEQUATE, RBC Morphology NORM C+C 07/26/21 04:15: Sodium 139, Potassium 3.4 L, Chloride 109 H, Carbon Dioxide 22.0, Anion Gap 8, BUN 86 H, Creatinine 2.84 H, Estim Creat Clear Calc 22.51, E st GFR (MDRD) Af Amer 27 L, Est GFR (MDRD) Non-Af 23 L, BUN/Creatinine Ratio 30.3 H, Glucose 295 H, Calcium 8.8 07/26/21 04:15: APTT 58.4 H 07/26/21 06:38: POC Glucose 249 H 07/26/21 09:39: POC Glucose 269 H 07/26/21 11:27: POC Glucose 264 H Micro: Microbiology 07/25/21 15:20 Blood Culture (Wb) - Pic Blood Culture - Preliminary 07/24/21 21:55 Sputum, Expectorated/Coughed Gram Stain - Final 07/24/21 21:55 Sputum, Expectorated/Coughed Respiratory Culture - Preliminary Staphylococcus aureus 07/24/21 08:55 Urine Catheter - Art Urine Culture - Final Culture exhibits no growth. 07/24/21 05:31 Blood Culture (Wb) - Anticubital Right Blood Culture - Final Staphylococcus aureus 07/24/21 05:20 Blood Culture (Wb) - Left Wrist Blood Culture - Final Staphylococcus aureus Cardiology Labs/Tests 07/25/21 14:22: APTT 61.1 H 07/25/21 21:00: APTT 56.2 H 07/26/21 04:15: WBC 15.9 H, RBC 4.05 L, Hgb 11.9 L, Hct 36.7 L, MCV 90.6, MCH 29.4, MCHC 32.4, Plt Count 179, MPV 10.9, Neut % (Auto) Not Reportable, Absolute Neuts (auto) 13.7 H, Total Counted 100, Neutrophils % (Manual) 56, Band Neutrophils % 25 H, Lymphocytes % (Manual) 5 L, Monocytes % (Manual) 9, Metamyelocytes % 5 H 07/26/21 04:15: Sodium 139, Potassium 3.4 L, Chloride 109 H, Carbon Dioxide 22.0, Anion Gap 8, BUN 86 H, Creatinine 2.84 H, Est GFR (MDRD) Af Amer 27 L, Est GFR (MDRD) Non-Af 23 L, BUN/Creatinine Ratio 30.3 H, Glucose 295 H, Calcium 8.8 07/26/21 04:15: APTT 58.4 H Rhythm: EKG: ECHO: Stress Test: Cardiac Cath: PCI: CT Surgery: Holter monitor: EPS: PPM: CXR: Chest CT Scan: Physical Exam Narrative Review of the landscape drafter showed sinus tachycardia Patient alert orientated Both exam S1-S2 regular There is no murmur no systolic or diastolic murmur Had a pacemaker/left infraclavicular region Chest exam: Diminished air entry bilateral Diminished lower extremity; no lower extremity edema., No clubbing or cyanosis Neuro examination; no focal logical deficit patient alert and orientated. Assessment & Plan Assessment/Plan (1) Atherosclerotic heart disease of [place] coronary artery without angina pectoris: QUALIFIERS: [place] vs. transplanted heart: [place] heart Qualified Code(s): I25.10 - Atherosclerotic heart disease of [place] coronary artery without angina pectoris (2) Sepsis: (3) Community acquired pneumonia: QUALIFIERS: Laterality: unspecified laterality Qualified Code(s): J18.9 - Pneumonia, unspecified organism (4) DKA (diabetic ketoacidosis): QUALIFIERS: Diabetes mellitus type: type 2 Diabetes mellitus complication detail: without coma Qualified Code(s): E11.10 - Type 2 diabetes mellitus with ketoacidosis without coma (5) AROLDO (obstructive sleep apnea): (6) COPD (chronic obstructive pulmonary disease): QUALIFIERS: COPD type: unspecified COPD Qualified Code(s): J44.9 - Chronic obstructive pulmonary disease, unspecified (7) MIRANDA (acute kidney injury): (8) Cardiomyopathy: PLAN: Patient has multiple medical comorbidities in this admission. Known CAD with CABG in 2019 with TANNER to LAD and SVG graft to OM. With worsening of his LV systolic function and evidence of non-ST elevation LA Evidently had symptoms of ongoing chest pain for 2 days prior to arrival to the hospital and noted significant reduction of his LV systolic function ejection fraction in the range of 25-30% in comparison to previously normal LV systolic function. Also patient had a paroxysmal atrial fibrillation. Also patient had pacemaker. In addition had diabetes diabetic ketoacidosis sepsis acute on chronic respiratory failure and acute kidney injury. Cardiac care plan recommendations; 1. Acute positive blood culture with staph aureus/ID consult and patient is on vancomycin. There is no evidence of vegetation noted on the regular transthoracic echo We will discuss need for further elevation by OBINNA Once he is stable and his blood pressure is improving currently is on Levophed IV for hypotension 2. We will keep n.p.o. from midnight 3. We will continue to follow-up clinically
[2021-07-26 16:36] LABS: Bedside Glucose 171 mg/dL (74-106)
[2021-07-26] MEDS: Tamsulosin HCl 0.4 MG Capsule PO (17:32)
[2021-07-26] MEDS: Acetaminophen 325 MG Tablet 650 MG PO (20:53)
[2021-07-26] MEDS: Atorvastatin Calcium 20 MG Tablet PO (20:54)
[2021-07-26] MEDS: guaiFENesin/Codeine 5 ML UDC 10 ML PO (20:54)
[2021-07-26] MEDS: 0.9% Saline Lock 10 ML Syringe IV (20:55)
[2021-07-26 21:06] LABS: Bedside Glucose 219 mg/dL (74-106)
--- NOTE | 2021-07-26 23:48 | CPS ---
pt on own home bipap machine with 3L O2 bled in
[2021-07-27] VITALS (35 sets, daily range): BP systolic 84–138; BP diastolic 49–93; PULSE 72–110; RESP 12–31; TEMP 36.4–38.3; O2SAT 89–95
[2021-07-27] MEDS: Levothyroxine 125 MCG Tablet PO (05:08)
[2021-07-27 05:34] LABS: Hematocrit 36.4 % (40-54); Hemoglobin 11.8 g/dL (13.0-16.5); Mean Corp Hgb Conc 32.4 g/dL (32-36); Mean Corpuscular Hgb 29.9 pg (27.0-32.0); Mean Corpuscular Volume 92.2 fL (80-94); Mean Platelet Vol. 10.3 fl (6.2-12.0); POSITIVE COUNT YES; POSITIVE DIFFERENTIAL YES; POSITIVE MORPHOLOGY YES; Platelet Count 145 K/mm3 (150-450); RBC Distribution Width SD 57.8 fl (35.1-43.9); Red Blood Count 3.95 M/mm3 (4.6-6.2); White Blood Count 14.8 K/mm3 (4.4-11.0)
[2021-07-27 05:44] LABS: Partial Thromboplast Time 52.9 Seconds (24.1-36.2)
[2021-07-27 06:00] LABS: Differential Indicated MANUAL DIFF
[2021-07-27 06:13] LABS: Absolute Lymphocyte Count 0.59 X10^3/uL (0.83-4.51); Absolute Neutrophil Count 11.8 X10^3/uL (2.0-7.7); Neutrophil-Band 15 % (0-5); Neutrophil-Segmented 65 % (47-70); Total Cells Counted 100 (MANUAL DIFF)
[2021-07-27 06:14] LABS: Anisocytosis 1+; Eosinophil 2 % (0-5); Lymphocyte 4 % (19-41); Monocyte 6 % (0-10); Myelocyte 5 % (0-0); Platelet Estimate SLT DEC (ADEQ); Promyelocyte 3 % (0-0); Red Cell Morphology NORM C+C NORMAL (NORM C&C)
[2021-07-27 06:22] LABS: Vancomycin, Random Level 17.4 ug/mL (0.0-15.0)
[2021-07-27] MEDS: Heparin Injection (Vial) 5,000 UNIT/ML VIAL IV ×2 (06:25→13:26)
[2021-07-27] MEDS: 0.9% Saline Lock 10 ML Syringe IV (06:25)
[2021-07-27 06:48] LABS: Anion Gap 6 (5-15); BUN 78 mg/dL (7-18); BUN/Creat Ratio 36.8 RATIO (10-20); Calcium,Total 8.7 mg/dL (8.5-10.1); Chloride 111 mmol/L (98-107); Creatinine, Serum 2.12 mg/dL (0.70-1.30); EST Glomerular Filtration Rate 32 mL/min (>60); Est Glom Filt Rate - Afr Amer 38 mL/min (>60); Estimated Creatinine Clearance 30.16 ml/min; Glucose 178 mg/dL (74-106); Potassium 4.3 mmol/L (3.5-5.1); Sodium Level 140 mmol/L (136-145)
--- NOTE | 2021-07-27 06:58 | PN.CC_ITS ---
Assessment & Plan Assessment/Plan (1) Sepsis: PLAN: RECOMMENDATIONS: 1. Wean supplemental oxygen as tolerated to maintain saturations at or above 90%. 2. Continue PAP therapy per home regimen with naps and nightly. 3. Okay to leave the intensive care unit from my perspective 4. Consider narrowing antibiotic spectrum given MSSA 5. Continue heparin infusion. Await cardiology recommendations 6. Continue basal and sliding scale insulin coverage. 7. Continue bronchopulmonary hygiene with PEP and incentive spirometry. IMPRESSIONS: 1. Acute on chronic hypoxemic respiratory failure secondary to MSSA pneumonia The patient presented to the hospital with worsening shortness of breath and chest pain. The patient has a known history of a severe mixed ventilatory defect with moderate reduction in diffusing capacity and chest imaging which revealed evidence of an evolving interstitial lung process. Prior 6-minute walk test revealed the need for 2 L/min of oxygen at rest and 4 L/min with exertion. The patient's medical history is also significant for coronary disease status post CABG. Chest imaging demonstrated background interstitial changes with what appeared to be some basilar predominant opacities. Patient has slowly improved over the course of the hospitalization. Multiple cultures showing MSSA, so roni blair okay to discontinue vancomycin and narrow antibiotic spectrum. Will discuss with the team. 2. Septic shock Resolved. Patient growing MSSA from multiple blood cultures. Clinical suspicion for pulmonary etiology. Patient has responded well. Patient was able to come off of Levophed yesterday afternoon and is doing well at this time. 3. Chest pain/NSTEMI Initially felt to be secondary to demand ischemia in the setting of numbers 1 and 2. However, the patient's surface echocardiogram demonstrated a significant reduction in ejection fraction along with severe LV systolic dysfunction, which was not present on prior echo. Cardiology is currently following to assist with medical management. Continue heparin infusion for now. Unclear if this is secondary to problem #2 versus coronary artery disease. Patient does have some ectopy noted on telemetry 4. Diabetic ketoacidosis Resolved. Continue basal and sliding scale insulin coverage. 5. Acute on chronic kidney disease Improving. Most likely prerenal in etiology. Anticipate further improvement in renal function with volume expansion and stabilization of hemodynamics. Continue to monitor urine output. No current indication for renal replacement therapy. Nephrology is following. 6. Advanced age/paroxysmal atrial fibrillation/anemia/hypothyroidism/sick sinus syndrome/sleep apnea Complicates care, management, recovery and prognosis. Continue home medications as indicated. The patient can be continued on his home BiPAP with a pressure support of 12/7 centimeters of water. Subjective Subjective Patient did well overnight. No acute issues were reported. Patient was able to use his home CPAP and tolerated this well. Patient subjectively feels better, but still has a productive cough. Reporting any chest pain, but does have occasional palpitations. Patient has had good urine output overnight and is denying any dysuria. Patient is requesting to go home if this is possible. Objective Data Objective Data Vital Signs: Vital Signs Temp Pulse Resp BP Pulse Ox 37.0 C 80 25 H 103/70 95 07/27/21 04:00 07/27/21 06:00 07/27/21 06:00 07/27/21 06:00 07/27/21 06:00 Oxygen Flow Rate (L/min) 5 Oxygen Delivery Method Nasal Cannula Weight: 120.7 kg Body Mass Index (BMI) 33.4 Intake & Output: Intake and Output for Last 24 Hours 07/25/21 07/26/21 07/27/21 22:59 23:59 23:59 Intake Total 50 / 50 Output Total 700 / 700 Balance -650 / -650 Lab / Micro Data Result Diagrams: 07/27/21 05:05 07/27/21 05:05 Labs: Laboratory Results - last 24 hr 07/26/21 09:39: POC Glucose 269 H 07/26/21 11:27: POC Glucose 264 H 07/26/21 16:27: POC Glucose 171 H 07/26/21 20:51: POC Glucose 219 H 07/27/21 05:05: WBC 14.8 H, RBC 3.95 L, Hgb 11.8 L, Hct 36.4 L, MCV 92.2, MCH 29.9, MCHC 32.4, RDW Std Deviation 57.8 H, RDW Coeff of Thang 17.0 H, Plt Count 145 L, MPV 10.3, Neut % (Auto) Not Reportable, Absolute Neuts (auto) 11.8 H, Absolute Lymphs (auto) 0.59 L, Total Counted 100, Neutrophils % (Manual) 65, Band Neutrophils % 15 H, Lymphocytes % (Manual) 4 L, Monocytes % (Manual) 6, Eosinophils % (Manual) 2, Myelocytes % 5 H, Promyelocytes % 3 H, Diff Path Review May foll, Platelet Estimate SLT DEC, RBC Morphology NORM C+C, Anisocytosis 1+ 07/27/21 05:05: Sodium 140, Potassium 4.3, Chloride 111 H, Carbon Dioxide 23.0, Anion Gap 6, BUN 78 H, Creatinine 2.12 H, Estim Creat Clear Calc 30.16, Est GFR (MDRD) Af Amer 38 L, Est GFR (MDRD) Non-Af 32 L, BUN/Creatinine Ratio 36.8 H, Glucose 178 H, Calcium 8.7 07/27/21 05:05: APTT 52.9 H 07/27/21 05:05: Random Vancomycin 17.4 H Micro: Microbiology 07/25/21 15:20 Blood Culture (Wb) - Pic Blood Culture - Preliminary 07/24/21 21:55 Sputum, Expectorated/Coughed Gram Stain - Final 07/24/21 21:55 Sputum, Expectorated/Coughed Respiratory Culture - Preliminary Staphylococcus aureus 07/24/21 08:55 Urine Catheter - Art Urine Culture - Final Culture exhibits no growth. 07/24/21 05:31 Blood Culture (Wb) - Anticubital Right Blood Culture - Final Staphylococcus aureus 07/24/21 05:20 Blood Culture (Wb) - Left Wrist Blood Culture - Final Staphylococcus aureus 07/24/21 08:10 Mucosa - Nasopharyngeal Respiratory Panel (PCR) - Final 07/24/21 08:20 Urine Catheter - Art Legionella Antigen - Final 07/24/21 08:20 Urine Catheter - Art Streptococcus pneumoniae Antigen (M - Final 07/24/21 04:44 Nasal Secretion SARS-CoV-2 Antigen (Rapid) - Final Physical Exam Const alert, oriented x3 and no apparent distress Constitutional Narrative: On nasal cannula General Appearance: cooperative Nutritional Appearance: obese HEENT normocephalic and head/scalp atraumatic Teeth and Gingiva: edentulous Eyes PERRL, EOMs intact bilaterally and conjunctivae normal Neck supple General: trachea midline Chest Chest Narrative: Malunion of sternum Resp normal respiratory effort and normal air movement Auscultation: rhonchi and diminished lung sounds; Negative for rales or wheezes Cardio regular rate, S1 normal heart sound and S2 normal heart sound Rhythm: abnormal rhythm regularly irregular GI normal to inspection, nondistended, normoactive bowel sounds Extremity General Extremity: edema bilateral lower extremity Details: trace; Negative for clubbing Skin no rashes or lesions noted Neuro CN's II-XII intact bilaterally, moves all extremities and no focal motor deficits Psych cooperative and affect normal Charges/Coding Visit Charges Inpatient E&M: 33664 Subs Hosp L3
[2021-07-27] MEDS: Budesonide Respules 0.5 MG/2 ML AMPUL.NEB. INHALATION ×2 (07:02→19:48)
[2021-07-27] MEDS: Ipratropium/Albuterol Sulfate 3 ML AMPUL.NEB INHALATION ×4 (07:02→19:48)
[2021-07-27] MEDS: Insulin Lispro 100 UNIT/ML INSULN.PEN SC ×2 (07:54→11:41)
[2021-07-27] MEDS: Insulin Lispro 100 UNIT/ML INSULN.PEN 15 UNIT SC ×3 (07:55→17:57)
[2021-07-27] MEDS: Acetaminophen 325 MG Tablet 650 MG PO ×2 (08:47→18:11)
[2021-07-27] MEDS: Aspirin E.C. 81 MG Tablet PO (08:47)
[2021-07-27] MEDS: Pantoprazole Sodium 40 MG Tablet PO (08:47)
[2021-07-27] MEDS: Metoprolol Tartrate 25 MG Tablet 12.5 MG PO ×2 (08:48→22:00)
[2021-07-27] MEDS: Finasteride 5 MG Tablet PO (08:48)
[2021-07-27] MEDS: guaiFENesin 1,200 MG Tablet 1200 MG PO ×2 (08:48→22:00)
[2021-07-27] MEDS: Allopurinol 300 MG Tablet PO (08:49)
[2021-07-27] MEDS: Piperacil/Tazobactam 3.375 GM Q12 PREMIX IV (08:54)
--- NOTE | 2021-07-27 09:08 | PN.HOSP_ITS ---
Subjective Subjective Doing well, feels much better today. Still little bit of a productive cough but denies any chest pain, or lightheadedness. Objective Data Objective Data Vital Signs: Vital Signs Temp Pulse Resp BP Pulse Ox 100.7 F H 103 H 21 H 95/60 95 07/27/21 09:00 07/27/21 09:00 07/27/21 09:00 07/27/21 09:00 07/27/21 09:00 Oxygen Flow Rate (L/min) 4 Oxygen Delivery Method Nasal Cannula Weight: 266 lb 1.567 oz Body Mass Index (BMI) 33.4 Intake & Output: Intake and Output for Last 24 Hours 07/26/21 07/27/21 07/28/21 03:59 03:59 03:59 Intake Total 1891.97 / 1891.97 114.75 / 114.75 Output Total 2150 / 2350 450 / 450 Balance -258.03 / -458.03 -335.25 / -335.25 Lab / Micro Data Result Diagrams: 07/27/21 05:05 07/27/21 05:05 Labs: Laboratory Results - last 24 hr 07/26/21 09:39: POC Glucose 269 H 07/26/21 11:27: POC Glucose 264 H 07/26/21 16:27: POC Glucose 171 H 07/26/21 20:51: POC Glucose 219 H 07/27/21 05:05: WBC 14.8 H, RBC 3.95 L, Hgb 11.8 L, Hct 36.4 L, MCV 92.2, MCH 29.9, MCHC 32.4, RDW Std Deviation 57.8 H, RDW Coeff of Thang 17.0 H, Plt Count 145 L, MPV 10.3, Neut % (Auto) Not Reportable, Absolute Neuts (auto) 11.8 H, Absolute Lymphs (auto) 0.59 L, Total Counted 100, Neutrophils % (Manual) 65, Band Neutrophils % 15 H, Lymphocytes % (Manual) 4 L, Monocytes % (Manual) 6, Eosinophils % (Manual) 2, Myelocytes % 5 H, Promyelocytes % 3 H, Diff Path Review May , Platelet Estimate SLT DEC, RBC Morphology NORM C+C, Anisocytosis 1+ 07/27/21 05:05: Sodium 140, Potassium 4.3, Chloride 111 H, Carbon Dioxide 23.0, Anion Gap 6, BUN 78 H, Creatinine 2.12 H, Estim Creat Clear Calc 30.16, Est GFR (MDRD) Af Amer 38 L, Est GFR (MDRD) Non-Af 32 L, BUN/Creatinine Ratio 36.8 H, Glucose 178 H, Calcium 8.7 07/27/21 05:05: APTT 52.9 H 07/27/21 05:05: Random Vancomycin 17.4 H Micro: Microbiology 07/24/21 21:55 Sputum, Expectorated/Coughed Gram Stain - Final 07/24/21 21:55 Sputum, Expectorated/Coughed Respiratory Culture - Preliminary Staphylococcus aureus Beta streptococcus 07/25/21 15:20 Blood Culture (Wb) - Pic Blood Culture - Preliminary 07/24/21 08:55 Urine Catheter - Art Urine Culture - Final Culture exhibits no growth. 07/24/21 05:31 Blood Culture (Wb) - Anticubital Right Blood Culture - Final Staphylococcus aureus 07/24/21 05:20 Blood Culture (Wb) - Left Wrist Blood Culture - Final Staphylococcus aureus 07/24/21 08:10 Mucosa - Nasopharyngeal Respiratory Panel (PCR) - Final 07/24/21 08:20 Urine Catheter - Art Legionella Antigen - Final 07/24/21 08:20 Urine Catheter - Art Streptococcus pneumoniae Antigen (M - Final 07/24/21 04:44 Nasal Secretion SARS-CoV-2 Antigen (Rapid) - Final Physical Exam Const alert, oriented x3 and no apparent distress General Appearance: cooperative HEENT normocephalic and moist oral mucous membranes Eyes PERRL, EOMs intact bilaterally and conjunctivae normal Neck supple and no JVD Resp normal respiratory effort, no retractions and no use of accessory muscles Auscultation: diminished lung sounds; Negative for crackles, rales, rhonchi or wheezes Cardio regular rate, regular rhythm, S1 normal heart sound, S2 normal heart sound and no murmurs GI soft to palpation, non-tender and non-distended; Negative for hepatosplenomegaly Extremity General Extremity: edema; Negative for clubbing or cyanosis Skin no rashes or lesions noted Neuro no focal motor deficits and no sensory deficits noted Psych affect normal Appearance: appropriate Assessment & Plan Assessment/Plan (1) DKA (diabetic ketoacidosis): QUALIFIERS: Diabetes mellitus type: type 2 Diabetes mellitus complication detail: without coma Qualified Code(s): E11.10 - Type 2 diabetes mellitus with ketoacidosis without coma (2) Community acquired pneumonia: QUALIFIERS: Laterality: unspecified laterality Qualified Code(s): J18.9 - Pneumonia, unspecified organism (3) MIRANDA (acute kidney injury): (4) Acute hypoxemic respiratory failure: PLAN: 1. Acute on chronic hypoxic respiratory failure and sepsis due to pneumonia ?Multifactorial including COPD with acute exacerbation, pulmonary fibrosis from recent COVID 19 pneumonia in January 2021. Patient was placed on noninvasive ventilation BiPAP admitted to the intensive care unit consultation placed to pulmonary medicine. Patient was placed on empiric antibiotic therapy pending culture results obtained on admission. Patient remains significantly at risk fo r possible intubation. Consult placed to pulmonary medicine Case discussed with Dr. Aj ?Present on admission patient was managed with IV fluid resuscitation as well as broad-spectrum antibiotic therapy. Cultures obtained on admission so far positive for gram-positive cocci final identification and sensitivities pending ?07/25/2021; patient has been weaned off BiPAP however remains on high flow oxygen -07/26/2021; Patient blood cultures positive for Staph aureus, repeat cultures obtained and if positive patient may need to undergo further evaluation with OBINNA. Initial TTE obtained did not mention any evidence of endocarditis. Consult has subsequently been placed to ID. Patient remains in ICU and is currently on Levophed ?07/27/2021: We will repeat blood cultures today, blood cultures on the are positive for may not need to do a OBINNA if cleared, he is off Levophed and is down to 3 to 4 L nasal cannula maintain his oxygen saturations 2. Diabetic ketoacidosis ?Managed with IV fluids, correction of electrolyte as well as insulin with every 4 BMPs ordered and subsequent adjustment made to therapy ?07/25/2021; anion gap down to 15. Patient insulin drip discontinued started on scheduled long-acting insulin with sliding scale coverage 07/26/2021; patient DKA resolved switch to long-acting insulin with subsequent adjustment made in view of significant hypoglycemia ?We will continue to monitor make adjustments to his insulin 3. Elevated troponin acute non-STEMI/acute on chronic systolic CHF?CAD/paroxysmal A. fib/HLD/sick sinus syndrome status post pacemaker/ ?Patient did present with chest pain but had no EKG changes consistent with acute ischemia. Admitted to intensive care unit serial cardiac enzymes ordered in addition to a 2D echo and consultation placed to cardiology. 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 Echo obtained demonstrated EF of 25 to 30% with severe LV systolic dysfunction with global LV hypokinesis ?Echo obtained on 03/10/2021 demonstrated EF of 50% ?07/26/2019 2 repeat echo obtained did reveal EF of 20 to 30% consistent with heart failure with reduced ejection fraction 4. Acute kidney injury ?Superimposed on chronic kidney disease stage IIIa. Patient baseline creatinine 1.41.5 creatinine on admission was 3.34. Currently on IV fluid with serial BMPs ordered ?07/25/2021 no improvement in kidney function -07/26/2021; creatinine down to 2.84, peaked at 3.6 5. Anemia - Secondary to chronic disorder monitoring H&H and transfuse if patient becomes symptomatic or hemoglobin falls below 7 6. Hypothyroidism - Patient is on levothyroxine home dose continued 7. BPH ?Patient is on Flomax as well as dutasteride; discontinue 8. Gout ?Patient is on allopurinol 9. GERD ?Patient's PPI 10. Class I obesity with BMI of 33.2 ?Weight loss advised 11. Obstructive sleep apnea ?PAP therapy at night DVT: Heparin drip Charges/Coding Visit Charges Inpatient E&M: 95552 Subs Hosp L2
--- NOTE | 2021-07-27 09:25 | PCM.PN.CARD ---
Subjective Subjective The patient denies any ongoing chest discomfort. He believes his breathing has improved. Objective Data Vital Signs: Vital Signs Temp Pulse Resp BP Pulse Ox 100.7 F H 103 H 21 H 95/60 95 07/27/21 09:00 07/27/21 09:00 07/27/21 09:00 07/27/21 09:00 07/27/21 09:00 Oxygen Flow Rate (L/min) 4 Oxygen Delivery Method Nasal Cannula Weight: 266 lb 1.567 oz Body Mass Index (BMI) 33.4 Intake & Output: Intake and Output for Last 24 Hours 07/25/21 07/26/21 07/27/21 22:59 23:59 23:59 Intake Total 164.75 / 164.75 Output Total 700 / 700 Balance -535.25 / -535.25 Lab / Micro Data Result Diagrams: 07/27/21 05:05 07/27/21 05:05 Labs: Laboratory Results - last 24 hr 07/26/21 09:39: POC Glucose 269 H 07/26/21 11:27: POC Glucose 264 H 07/26/21 16:27: POC Glucose 171 H 07/26/21 20:51: POC Glucose 219 H 07/27/21 05:05: WBC 14.8 H, RBC 3.95 L, Hgb 11.8 L, Hct 36.4 L, MCV 92.2, MCH 29.9, MCHC 32.4, RDW Std Deviation 57.8 H, RDW Coeff of Thang 17.0 H, Plt Count 145 L, MPV 10.3, Neut % (Auto) Not Reportable, Absolute Neuts (auto) 11.8 H, Absolute Lymphs (auto) 0.59 L, Total Counted 100, Neutrophils % (Manual) 65, Band Neutrophils % 15 H, Lymphocytes % (Manual) 4 L, Monocytes % (Manual) 6, Eosinophils % (Manual) 2, Myelocytes % 5 H, Promyelocytes % 3 H, Diff Path Review September, Platelet Estimate SLT DEC, RBC Morphology NORM C+C, Anisocytosis 1+ 07/27/21 05:05: Sodium 140, Potassium 4.3, Chloride 111 H, Carbon Dioxide 23.0, Anion Gap 6, BUN 78 H, Creatinine 2.12 H, Estim Creat Clear Calc 30.16, Est GFR (MDRD) Af Amer 38 L, Est GFR (MDRD) Non-Af 32 L, BUN/Creatinine Ratio 36.8 H, Glucose 178 H, Calcium 8.7 07/27/21 05:05: APTT 52.9 H 07/27/21 05:05: Random Vancomycin 17.4 H Micro: Microbiology 07/24/21 21:55 Sputum, Expectorated/Coughed Gram Stain - Final 07/24/21 21:55 Sputum, Expectorated/Coughed Respiratory Culture - Preliminary Staphylococcus aureus Beta streptococcus 07/25/21 15:20 Blood Culture (Wb) - Pic Blood Culture - Preliminary 07/24/21 08:55 Urine Catheter - Art Urine Culture - Final Culture exhibits no growth. 07/24/21 05:31 Blood Culture (Wb) - Anticubital Right Blood Culture - Final Staphylococcus aureus 07/24/21 05:20 Blood Culture (Wb) - Left Wrist Blood Culture - Final Staphylococcus aureus Cardiology Labs/Tests 07/27/21 05:05: WBC 14.8 H, RBC 3.95 L, Hgb 11.8 L, Hct 36.4 L, MCV 92.2, MCH 29.9, MCHC 32.4, Plt Count 145 L, MPV 10.3, Neut % (Auto) Not Reportable, Absolute Neuts (auto) 11.8 H, Total Counted 100, Neutrophils % (Manual) 65, Band Neutrophils % 15 H, Lymphocytes % (Manual) 4 L, Monocytes % (Manual) 6, Eosinophils % (Manual) 2, Myelocytes % 5 H, Promyelocytes % 3 H 07/27/21 05:05: Sodium 140, Potassium 4.3, Chloride 111 H, Carbon Dioxide 23.0, Anion Gap 6, BUN 78 H, Creatinine 2.12 H, Est GFR (MDRD) Af Amer 38 L, Est GFR (MDRD) Non-Af 32 L, BUN/Creatinine Ratio 36.8 H, Glucose 178 H, Calcium 8.7 07/27/21 05:05: APTT 52.9 H Rhythm: Sinus rhythm; paroxysmal atrial fibrillation; intermittent electronic ventricular paced to be Physical Exam Const alert, oriented x3 and no apparent distress Orientation / Consciousness: awake HEENT normocephalic, head/scalp atraumatic and hearing grossly normal bilaterally Eyes PERRL, EOMs intact bilaterally and conjunctivae normal Neck full ROM, supple and no JVD Resp Auscultation: rhonchi throughout (Scattered) Cardio Rhythm: abnormal rhythm irregularly irregular Heart Sounds: S1 normal and S2 normal GI normal to inspection, nondistended, normoactive bowel sounds Extremity no pedal edema Skin no rashes or lesions noted Psych mental status grossly normal Assessment & Plan Assessment/Plan (1) Atherosclerotic heart disease of [place] coronary artery without angina pectoris: QUALIFIERS: [place] vs. transplanted heart: [place] heart Qualified Code(s): I25.10 - Atherosclerotic heart disease of [place] coronary artery without angina pectoris PLAN: The patient has a history of underlying CAD. 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 At the present time he will continue to be monitored. He will continue medical therapy as tolerated which ideally would include agents such as aspirin, nitrates if needed and tolerated, beta-blockers if tolerated by hemodynamics, lipid-lowering agents unless otherwise contraindicated, and additional antiplatelet/anticoagulant agents as deemed appropriate. (2) NSTEMI (non-ST elevated myocardial infarction): PLAN: The patient does have abnormal cardiac enzymes. The enzymes may be secondary to his acute noncardiovascular conditions and thus may represent a type II non-ST segment elevation [place]. However, the patient does have underlying CAD and it is noted his LV systolic function/LVEF was reported decreased compared to prior studies. The patient will continue to be monitored and will continue medical therapy as tolerated. Over time, depending upon the patient's noncardiovascular comorbidities, he may need to be considered for repeat evaluation in the cardiac catheterization laboratory to assess for progression of CAD or graft vessel disease that requires additional revascularization therapy. (3) Cardiomyopathy: PLAN: The patient's LV systolic function/LVEF was reported as decreased compared to prior studies. Again it is unclear whether this is related to his noncardiovascular events versus progression of his [place] cardiovascular disease. At the moment he will continue to be monitored. He should continue medical therapy as his comorbidities tolerate. As noted above he may eventually need reevaluation in the cardiac catheterization laboratory depending upon his comorbidities, etc. (4) Paroxysmal atrial fibrillation: PLAN: The patient does have a history of paroxysmal atrial fibrillation. He should continue rate limiting therapy as deemed appropriate. He is currently on IV heparin. Depending upon his clinical course and comorbidities and the need for additional procedures consideration can be given to eventually altering this to an oral anticoagulant but he may be able to tolerate. (5) History of permanent cardiac pacemaker placement: PLAN: The patient does have a permanent pacemaker. It has been followed as an outpatient and has been reported is functioning appropriately in the past. He can be reassessed as needed. (6) Hyperlipidemia: QUALIFIERS: Hyperlipidemia type: unspecified Qualified Code(s): E78.5 - Hyperlipidemia, unspecified PLAN: The patient has a report of statin related myalgias. He should continue lipid-lowering therapy as tolerated. (7) DKA (diabetic ketoacidosis): QUALIFIERS: Diabetes mellitus type: type 2 Diabetes mellitus complication detail: without coma Qualified Code(s): E11.10 - Type 2 diabetes mellitus with ketoacidosis without coma PLAN: The patient was reported as having DKA. It appears his glucose levels are coming under better control. He will continue to be followed by internal medicine. (8) MIRANDA (acute kidney injury): PLAN: The patient had acute on chronic renal insufficiency. His creatinine level is improving but not yet back to baseline. This would have to be taken into consideration with respect to medication adjustments as well as any future invasive evaluation regarding IV contrast that could exacerbate his underlying renal insufficiency and lead to IV contrast related nephropathy. (9) Acute on chronic respiratory failure: QUALIFIERS: Respiratory failure complication: hypoxia Qualified Code(s): J96.21 - Acute and chronic respiratory failure with hypoxia PLAN: The patient continues evaluation care per internal medicine and pulmonology/critical care medicine. He is being treated for MSSA related pulmonary conditions. He is reported as improving. (10) Sepsis: PLAN: The patient has been reported as having bacteremia with MSSA. Per Dr. Song's note it appears this is thought to be related to his underlying pulmonary condition. He is continuing antibiotic therapy at this time. An infectious disease consultation is pending. Depending upon his overall evaluation consideration will be given as to whether he needs or does not need further cardiovascular evaluation such as OBINNA previously commented upon by Dr. Ballesteros. (11) Hypotension: PLAN: The patient has required IV vasopressor support. An attempt is being made to wean him from his IV vasopressor and monitor his blood pressure response. Addt'l Comments Overall, from a cardiovascular standpoint, the patient will continue to be monitored. He will continue supportive medical therapy at this time. Additional cardiovascular noninvasive and invasive studies will depend upon his noncardiovascular comorbidities and findings. Above was discussed and reviewed at length with the patient. This note was generated using a voice recognition system and there may be incorrect words, spelling or punctuation that were not noted when reviewing the office note prior to saving. Procedure Criteria Type of Procedure Procedure Type: Elective Elective Risks - COVID COVID Risk Discussion: The surgeon/proceduralist and patient have discussed in detail the risk of exposure to and/or potential harm posed by the COVID-19 virus with having a surgery/procedure at this time versus the risk of delaying the surgery/procedure. It is not possible to know either the risk of delaying the surgery or procedure or chance of getting an infection with perfect accuracy, but a joint decision was made between the patient and the surgeon/proceduralist to proceed at this time with the scheduled surgery/procedure as indicated on the consent form.
--- NOTE | 2021-07-27 10:28 | PCM.PN.REN ---
Objective Data Objective Data Following for MIRANDA on CKD Sitting up in chair, no complaints. States appetite good, denies nausea. Vital Signs: Vital Signs Temp Pulse Resp BP Pulse Ox 100.7 F H 103 H 21 H 95/60 95 07/27/21 09:00 07/27/21 09:00 07/27/21 09:00 07/27/21 09:00 07/27/21 09:00 Oxygen Flow Rate (L/min) 4 Oxygen Delivery Method Nasal Cannula Weight: 120.7 kg Body Mass Index (BMI) 33.4 Intake & Output: Intake and Output for Last 24 Hours 07/25/21 07/26/21 07/27/21 22:59 23:59 23:59 Intake Total 324.75 / 324.75 Output Total 700 / 700 Balance -375.25 / -375.25 Lab / Micro Data Result Diagrams: 07/27/21 05:05 07/27/21 05:05 Labs: Laboratory Results - last 24 hr 07/26/21 11:27: POC Glucose 264 H 07/26/21 16:27: POC Glucose 171 H 07/26/21 20:51: POC Glucose 219 H 07/27/21 05:05: WBC 14.8 H, RBC 3.95 L, Hgb 11.8 L, Hct 36.4 L, MCV 92.2, MCH 29.9, MCHC 32.4, RDW Std Deviation 57.8 H, RDW Coeff of Thang 17.0 H, Plt Count 145 L, MPV 10.3, Neut % (Auto) Not Reportable, Absolute Neuts (auto) 11.8 H, Absolute Lymphs (auto) 0.59 L, Total Counted 100, Neutrophils % (Manual) 65, Band Neutrophils % 15 H, Lymphocytes % (Manual) 4 L, Monocytes % (Manual) 6, Eosinophils % (Manual) 2, Myelocytes % 5 H, Promyelocytes % 3 H, Diff Path Review September, Platelet Estimate SLT DEC, RBC Morphology NORM C+C, Anisocytosis 1+ 07/27/21 05:05: Sodium 140, Potassium 4.3, Chloride 111 H, Carbon Dioxide 23.0, Anion Gap 6, BUN 78 H, Creatinine 2.12 H, Estim Creat Clear Calc 30.16, Est GFR (MDRD) Af Amer 38 L, Est GFR (MDRD) Non-Af 32 L, BUN/Creatinine Ratio 36.8 H, Glucose 178 H, Calcium 8.7 07/27/21 05:05: APTT 52.9 H 07/27/21 05:05: Random Vancomycin 17.4 H Micro: Microbiology 07/24/21 21:55 Sputum, Expectorated/Coughed Gram Stain - Final 07/24/21 21:55 Sputum, Expectorated/Coughed Respiratory Culture - Preliminary Staphylococcus aureus Streptococcus group B 07/25/21 15:20 Blood Culture (Wb) - Pic Blood Culture - Preliminary 07/24/21 08:55 Urine Catheter - Acosta Urine Culture - Final Culture exhibits no growth. 07/24/21 05:31 Blood Culture (Wb) - Anticubital Right Blood Culture - Final Staphylococcus aureus 07/24/21 05:20 Blood Culture (Wb) - Left Wrist Blood Culture - Final Staphylococcus aureus 07/24/21 08:10 Mucosa - Nasopharyngeal Respiratory Panel (PCR) - Final 07/24/21 08:20 Urine Catheter - Acosta Legionella Antigen - Final 07/24/21 08:20 Urine Catheter - Acosta Streptococcus pneumoniae Antigen (M - Final 07/24/21 04:44 Nasal Secretion SARS-CoV-2 Antigen (Rapid) - Final Physical Exam Narrative Alert and oriented HEENT: Head is normocephalic, atraumatic, pupils equal round reactive to light Cardio: S1, S2, rhythm rate regular Respiratory: Lung sounds clear anteriorly, no rales or rhonchi noted Extremities: No pitting edema : +Acosta with clear urine in bag Assessment & Plan Assessment/Plan (1) MIRANDA (acute kidney injury): PLAN: -The patient has underlying chronic kidney disease with serum creatinine of 1.5 mg/dL at baseline. -MIRANDA is prerenal with fractional excretion of sodium of less than 1% on 07/24/2021. -Serum Cr peaked 3.60mg/dL and has improved daily without needing COUNTRY PRINTER APPRENTICE, today SCr 2.12mg/dL. -The patient is nonoliguric. Bps improved, off IV pressor. -We will continue to follow the patient on current treatment. - ok to remove acosta (2) DKA (diabetic ketoacidosis): QUALIFIERS: Diabetes mellitus type: type 2 Diabetes mellitus complication detail: without coma Qualified Code(s): E11.10 - Type 2 diabetes mellitus with ketoacidosis without coma PLAN: -Management as per primary service. (3) Acute hypoxemic respiratory failure: PLAN: -He is being treated for possible pneumonia. IV antibiotics, Zosyn. Repeat BC today. -Overall management as per landscaping supervisor. (4) CHF exacerbation: QUALIFIERS: Heart failure type: unspecified Qualified Code(s): I50.9 - Heart failure, unspecified PLAN: -The patient has decreased ejection fraction at 25 to 30%. -However, I do not think the patient is volume overloaded or decompensated at this point. -Holding diuretic (home regimen lasix 40mg bid). -We will monitor volume status closely with you. Weights staying about the same from admission, Cumulative I&O patient is net +2L. Will monitor volume status/labs tomorrow and will evaluate restarting back on lasix.
[2021-07-27 11:46] LABS: Bedside Glucose 153 mg/dL (74-106)
[2021-07-27] MEDS: Cefazolin 2 GM in 0.9% Normal Saline 100 ML IV ×2 (11:51→23:02)
[2021-07-27 12:49] LABS: Pathologist Review Reviewed
[2021-07-27 12:51] LABS: Pathologist Review Reviewed
[2021-07-27 12:56] LABS: Bedside Glucose 202 mg/dL (74-106)
--- NOTE | 2021-07-27 13:07 | PCM.CONS.GEN ---
Assessment & Plan Assessment/Plan (1) MIRANDA (acute kidney injury): (2) Severe sepsis: (3) MSSA bacteremia: PLAN: septic shock due to mssa bacteremia, suspected pneumonia as source. Repeat bcx pending. TTE showed no veg, recommend OBINNA if safe to do so to eval his valves and device. Will narrow abx to cefazolin. Has had covid vaccine x3. Will follow, thank you HPI Consult Data Date of Consult: 07/27/21 HPI Narrative HPI Narrative: HIRAM KRUEGER, is a 85 M with pacer in place, presented 07/24 with 48 hours progressive chest pain, some cough/dyspnea. No fever or chills. Had recently stopped taking his lasix so he could go to a wedding. Admitted here with hypoxia, NSTEMI, DKA, shock. Started on vanc/zosyn. Now out of icu, MIRANDA better, feeling better, wants to go home soon. No recent procedures on his L chest pacer, no pain/swelling/drainage there. No recent abx or skin abscess/infection. Cough and sputum are improved. Still some fever. Full ROS performed and neg except as noted above. [facility] Medical History Acute and chronic respiratory failure with hypoxia Acute blood loss anemia Atherosclerotic heart disease of [place] coronary artery without angina pectoris Atrial flutter Atrial flutter Cardiomyopathy Cellulitis Chest pain Chronic renal insufficiency CKD (chronic kidney disease) stage 3, GFR 30-59 ml/min COPD (chronic obstructive pulmonary disease) COVID Depression Dizziness Essential hypertension GERD (gastroesophageal reflux disease) GI bleed Gout Healthcare associated bacterial pneumonia (Unknown) Hyperkalemia Hyperlipidemia Hypotension Hypothyroidism Macrocytic anemia Mixed obstructive and restrictive ventilatory defect Morbid obesity with BMI of 40.0-44.9, adult NSTEMI (non-ST elevated myocardial infarction) NSTEMI (non-ST elevated myocardial infarction) Old myocardial infarction AROLDO (obstructive sleep apnea) Osteoarthritis Pacemaker Paroxysmal atrial fibrillation Pulmonary fibrosis Retinal artery occlusion Sepsis Sick sinus syndrome Home Medications levothyroxine 125 mcg PO DAILY 03/28/18 [History Last Taken 02/18/20] acetaminophen 1,000 mg PO Q6H PRN tab 07/25/18 [Rx Last Taken 01/14/21 12:00] allopurinol 300 mg tablet 300 mg PO DAILY 07/27/18 [History Last Taken 02/17/20] pantoprazole 40 mg tablet,delayed release 40 mg PO DAILY 08/16/18 [History Last Taken 02/18/20] rosuvastatin 10 mg tablet 10 mg PO QHS tab 02/11/20 [History Last Taken 02/17/20] dutasteride 0.5 mg PO DAILY 02/18/20 [History Last Taken 02/17/20] Mucus Relief ER 1,200 mg PO BID 01/14/21 [History Last Taken 01/14/21 08:00] tamsulosin 0.4 mg PO DAILY@1730 01/14/21 [History Last Taken Unknown] budesonide 0.5 mg/2 mL suspension for nebulization 0.5 mg INHALATION BID #120 ml 01/27/21 [Rx Last Taken Unknown] Eliquis 2.5 mg PO DAILY 03/09/21 [History Last Taken Unknown] furosemide 40 mg PO BIDLX 30 Days #60 tab 03/11/21 [Rx Last Taken Unknown] azithromycin 250 mg tablet 250 mg PO DAILY 04/22/21 [History Last Taken Unknown] ipratropium 0.5 mg-albuterol 3 mg (2.5 mg base)/3 mL nebulization soln 3 ml INHALATION Q4H #180 ml 05/05/21 [Rx Last Taken Unknown] meclizine 12.5 mg tablet 12.5 mg PO TID PRN 06/04/21 [History Last Taken Unknown] Acapella #1 ea 06/23/21 [Rx Last Taken Unknown] aspirin 81 mg PO DAILY 07/24/21 [History Last Taken Unknown] prednisone 10 mg PO DAILY 07/24/21 [History Last Taken Unknown] Allergy/AdvReac Type Severity Reaction Status Date / Time atorvastatin [From Lipitor] AdvReac MUSCLE PAIN Verified 07/24/21 04:26 Family History (Updated 07/24/21 @ 06:[address] Suzie Francois MD) Father Cancer Lung Heart disease Myocardial infarction Mother Heart disease Surgical History History of bilateral hip replacements History of permanent cardiac pacemaker placement (02/18/20) S/P coronary artery bypass graft x 2 (~06/23/18) Social History housing: house Smoking Status: Former smoker how long ago did patient quit smokin years ago alcohol intake: never substance use type: does not use caffeine: No what type of physical activity do you participate in: walking frequency: daily Physical Exam Const alert and no apparent distress General Appearance: cooperative Exam Limitations: no limitations HEENT normocephalic and head/scalp atraumatic Eyes PERRL and EOMs intact bilaterally Neck supple and No nodes Resp clear to auscultation bilaterally Auscultation: diminished lung sounds Cardio regular rate and regular rhythm Cardio Narrative: L chest pacer no inflammation or drainage GI soft to palpation, non-tender and non-distended Extremity Extremity Narrative: No spine tenderness. No joint pain/swelling General Extremity: edema Skin no rashes or lesions noted Skin Narrative: no splinter hemorrhages on hands or feet. Neuro CN's II-XII intact bilaterally Lab / Micro Data Result Diagrams: 07/27/21 05:05 07/27/21 05:05 Labs: Laboratory Results - last 24 hr 07/25/21 04:10: Diff Path Review Reviewed 07/26/21 04:15: Diff Path Review Reviewed 07/26/21 16:27: POC Glucose 171 H 07/26/21 20:51: POC Glucose 219 H 07/27/21 05:05: WBC 14.8 H, RBC 3.95 L, Hgb 11.8 L, Hct 36.4 L, MCV 92.2, MCH 29.9, MCHC 32.4, RDW Std Deviation 57.8 H, RDW Coeff of Thang 17.0 H, Plt Count 145 L, MPV 10.3, Neut % (Auto) Not Reportable, Absolute Neuts (auto) 11.8 H, Absolute Lymphs (auto) 0.59 L, Total Counted 100, Neutrophils % (Manual) 65, Band Neutrophils % 15 H, Lymphocytes % (Manual) 4 L, Monocytes % (Manual) 6, Eosinophils % (Manual) 2, Myelocytes % 5 H, Promyelocytes % 3 H, Diff Path Review May foll, Platelet Estimate SLT DEC, RBC Morphology NORM C+C, Anisocytosis 1+ 07/27/21 05:05: Sodium 140, Potassium 4.3, Chloride 111 H, Carbon Dioxide 23.0, Anion Gap 6, BUN 78 H, Creatinine 2.12 H, Estim Creat Clear Calc 30.16, Est GFR (MDRD) Af Amer 38 L, Est GFR (MDRD) Non-Af 32 L, BUN/Creatinine Ratio 36.8 H, Glucose 178 H, Calcium 8.7 07/27/21 05:05: APTT 52.9 H 07/27/21 05:05: Random Vancomycin 17.4 H 07/27/21 06:31: POC Glucose 202 H 07/27/21 11:39: POC Glucose 153 H Micro: Microbiology 07/24/21 21:55 Sputum, Expectorated/Coughed Gram Stain - Final 07/24/21 21:55 Sputum, Expectorated/Coughed Respiratory Culture - Preliminary Staphylococcus aureus Streptococcus group B 07/25/21 15:20 Blood Culture (Wb) - Pic Blood Culture - Preliminary 07/24/21 08:55 Urine Catheter - Art Urine Culture - Final Culture exhibits no growth.
[2021-07-27 13:14] LABS: Partial Thromboplast Time 27.5 Seconds (24.1-36.2)
--- NOTE | 2021-07-27 13:46 | CHAPLAIN ---
Type of Pastoral Visit ___ Initial Visit _x__ Follow-up Visit ___ On-call Visit ___ General Patient Visit ___ Spiritual Assessment ___ Family Conference ___ Bereavement ___ Rapid Response ___ Code Blue ___ Other (describe below) Pastoral Care Referral From _x__ Patient ___ Family ___ Nurse ___ Physician ___ Mechanical Maintenance Foreman ___ [place] ___ Other (describe below) Sacrament/Intervention _x__ Active listening ___ Anointing ___ Synagogue ___ Bereavement ___ Communion _x__ Cristin exploration ___ ___ Life review _x__ Prayer ___ Reconciliation ___ Sacrament of Sick _x__ Supportive presence ___ Wedding ___ Other (describe below) Pastoral Comments patient is alert and sitting in chair; spouse is with him; spouse reports better numbers and decision to move pt to PCU; 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
[2021-07-27 16:51] LABS: Bedside Glucose 102 mg/dL (74-106)
[2021-07-27] MEDS: Tamsulosin HCl 0.4 MG Capsule PO (17:57)
--- NOTE | 2021-07-27 19:48 | CPS ---
pt on home unit with 7L o2 bled in ... Spo2 [id number]
[2021-07-27 20:14] LABS: Partial Thromboplast Time 74.3 Seconds (24.1-36.2)
--- NOTE | 2021-07-27 21:00 | RAD_ITS ---
INDICATION: SOB EXAMINATION/TECHNIQUE: X-RAY - XR Chest 1 View COMPARISON: 07/24/2021 chest x-ray and 01/14/[address] chest. FINDINGS: LINES/DEVICES: 2-lead pacing device projects over left chest with leads projecting over the right atrium and right ventricle. There are multiple fractured sternotomy wires. There is a peripherally inserted right-sided PICC line with the tip projecting over the distal superior vena cava, proximal atrium. LUNGS: Persistent bilateral pleural effusions with bilateral patchy airspace disease or notably in the left lung and in the right lung base. This obscures the heart borders and likely represents alveolar filling process; pulmonary edema or infectious etiology. No pneumothorax. MEDIASTINUM AND CARDIOVASCULAR STRUCTURES: Normal size and contour of the cardiomediastinal silhouette. No evidence of pulmonary vascular congestion. BONES AND SOFT TISSUES: No abnormality within limits of the exam. RAD/Chest 1 View (Portable) IMPRESSION: 1. No significant interval change airspace disease and bilateral pleural effusions. Electronically Signed: Marquise Nation DO at 0:06 EDT ,
[2021-07-27] MEDS: Atorvastatin Calcium 20 MG Tablet PO (22:00)
--- NOTE | 2021-07-27 23:04 | CPS ---
dentures out, both uppers and lowers.
--- NOTE | 2021-07-27 23:06 | CPS ---
Placed pt on our bipap to give more cpap pressure due to drop in pt o2 saturation.
[2021-07-28] VITALS (35 sets, daily range): BP systolic 95–124; BP diastolic 45–101; PULSE 80–104; RESP 12–28; TEMP 36.1–37.1; O2SAT 91–98
[2021-07-28] MEDS: Levothyroxine 125 MCG Tablet PO (05:55)
[2021-07-28] MEDS: Budesonide Respules 0.5 MG/2 ML AMPUL.NEB. INHALATION ×2 (07:04→19:19)
[2021-07-28] MEDS: Ipratropium/Albuterol Sulfate 3 ML AMPUL.NEB INHALATION ×5 (07:04→23:26)
[2021-07-28] MEDS: Furosemide 40 MG/4 ML Vial IV ×2 (07:21→15:05)
[2021-07-28 08:02] LABS: Bedside Glucose 75 mg/dL (74-106)
[2021-07-28 08:02] LABS: Bedside Glucose 113 mg/dL (74-106)
[2021-07-28 08:08] LABS: Partial Thromboplast Time 56.6 Seconds (24.1-36.2)
[2021-07-28] MEDS: Aspirin E.C. 81 MG Tablet PO (08:15)
[2021-07-28 08:25] LABS: Bedside Glucose 186 mg/dL (74-106)
--- NOTE | 2021-07-28 08:30 | PN.CC_ITS ---
Assessment & Plan Assessment/Plan (1) Sepsis: PLAN: RECOMMENDATIONS: 1. Wean supplemental oxygen as tolerated to maintain saturations at or above 90%. 2. Continue PAP therapy per home regimen with naps and nightly. 3. Reinitiate diuretics 4. Await OBINNA for evaluation of MSSA 5. Continue heparin infusion. Await cardiology recommendations 6. Continue basal and sliding scale insulin coverage. 7. Continue bronchopulmonary hygiene with PEP and incentive spirometry. IMPRESSIONS: 1. Acute on chronic hypoxemic respiratory failure secondary to MSSA pneumonia The patient presented to the hospital with worsening shortness of breath and chest pain. The patient has a known history of a severe mixed ventilatory defect with moderate reduction in diffusing capacity and chest imaging which revealed evidence of an evolving interstitial lung process. Prior 6-minute walk test revealed the need for 2 L/min of oxygen at rest and 4 L/min with exertion. The patient's medical history is also significant for coronary disease status post CABG. Chest imaging demonstrated background interstitial changes with what appeared to be some basilar predominant opacities. Patient likely has a combination of both embolic pneumonia and CHF. Diuretics were held when patient was hypotensive. These should be reinitiated and wean supplemental oxygen as tolerated. 2. Septic shock Resolved. Patient growing MSSA from multiple blood cultures. Clinical suspicion for pulmonary etiology. Patient has responded well. Patient's blood pressure remained stable. Patient has had increased FiO2 requirements, but this appears to be secondary to a lack of diuretic. 3. Chest pain/NSTEMI Initially felt to be secondary to demand ischemia in the setting of numbers 1 and 2. However, the patient's surface echocardiogram demonstrated a significant reduction in ejection fraction along with severe LV systolic dysfunction, which was not present on prior echo. Cardiology is currently following to assist with medical management. Continue heparin infusion for now. Unclear if this is secondary to problem #2 versus coronary artery disease. Patient does have some ectopy noted on telemetry 4. Diabetic ketoacidosis Resolved. Continue basal and sliding scale insulin coverage. 5. Acute on chronic kidney disease Improving. Most likely prerenal in etiology. Anticipate further improvement in renal function with volume expansion and stabilization of hemodynamics. Continue to monitor urine output. No current indication for renal replacement therapy. Nephrology is following. 6. Advanced age/paroxysmal atrial fibrillation/anemia/hypothyroidism/sick sinus syndrome/sleep apnea Complicates care, management, recovery and prognosis. Continue home medications as indicated. The patient can be continued on his home BiPAP with a pressure support of 12/7 centimeters of water. Subjective Subjective Patient transferred out of the intensive care unit yesterday. Patient subjectively feels slightly improved compared to yesterday. Patient has had some increased FiO2 requirements and has remained persistently febrile. Patient is not reporting any chest pain and was able to get to the chair yesterday. Objective Data Objective Data Vital Signs: Vital Signs Temp Pulse Resp BP Pulse Ox 36.9 C 88 24 H 122/65 H 95 07/28/21 07:00 07/28/21 07:00 07/28/21 07:00 07/28/21 07:00 07/28/21 07:00 Oxygen Flow Rate (L/min) 10 Oxygen Delivery Method High Flow Weight: 120.6 kg Body Mass Index (BMI) 33.4 Intake & Output: Intake and Output for Last 24 Hours 07/26/21 07/27/21 07/28/21 23:59 23:59 23:59 Intake Total 1560.00 / 1560.00 340 / 340 Output Total 1825 / 1825 625 / 625 Balance -265.00 / -265.00 -285 / -285 Lab / Micro Data Result Diagrams: 07/27/21 05:05 07/27/21 05:05 Labs: Laboratory Results - last 24 hr 07/25/21 04:10: Diff Path Review Reviewed 07/26/21 04:15: Diff Path Review Reviewed 07/27/21 06:31: POC Glucose 202 H 07/27/21 11:39: POC Glucose 153 H 07/27/21 12:45: APTT 27.5 07/27/21 16:38: POC Glucose 102 07/27/21 19:35: APTT 74.3 H 07/27/21 21:53: POC Glucose 75 07/27/21 23:58: POC Glucose 113 H 07/28/21 02:50: APTT 56.6 H 07/28/21 08:11: POC Glucose 186 H Micro: Microbiology 07/24/21 21:55 Sputum, Expectorated/Coughed Gram Stain - Final 07/24/21 21:55 Sputum, Expectorated/Coughed Respiratory Culture - Final Staphylococcus aureus Streptococcus agalactiae (B) 07/25/21 15:20 Blood Culture (Wb) - Pic Blood Culture - Preliminary 07/24/21 08:55 Urine Catheter - Art Urine Culture - Final Culture exhibits no growth. 07/24/21 05:31 Blood Culture (Wb) - Anticubital Right Blood Culture - Final Staphylococcus aureus 07/24/21 05:20 Blood Culture (Wb) - Left Wrist Blood Culture - Final Staphylococcus aureus 07/24/21 08:10 Mucosa - Nasopharyngeal Respiratory Panel (PCR) - Final 07/24/21 08:20 Urine Catheter - Art Legionella Antigen - Final 07/24/21 08:20 Urine Catheter - Art Streptococcus pneumoniae Antigen (M - Final 07/24/21 04:44 Nasal Secretion SARS-CoV-2 Antigen (Rapid) - Final Radiography Diagnostic Testing: Radiology Impression Chest X-Ray 07/27/21 21:00 IMPRESSION: 1. No significant interval change airspace disease and bilateral pleural effusions. Electronically Signed: Marquise Nation DO at 0:06 EDT , Physical Exam Const alert, oriented x3 and no apparent distress Constitutional Narrative: On nasal cannula General Appearance: cooperative Nutritional Appearance: obese HEENT normocephalic and head/scalp atraumatic Teeth and Gingiva: edentulous Eyes PERRL, EOMs intact bilaterally and conjunctivae normal Neck supple General: trachea midline Chest Chest Narrative: Malunion of sternum Resp normal respiratory effort and normal air movement Auscultation: rhonchi and diminished lung sounds; Negative for rales or wheezes Cardio regular rate, S1 normal heart sound and S2 normal heart sound Rhythm: abnormal rhythm regularly irregular GI normal to inspection, nondistended, normoactive bowel sounds Extremity General Extremity: edema bilateral lower extremity Details: trace; Negative for clubbing Skin no rashes or lesions noted Neuro CN's II-XII intact bilaterally, moves all extremities and no focal motor defici ts Psych cooperative and affect normal Charges/Coding Visit Charges Inpatient E&M: 75553 Subs Hosp L3
--- NOTE | 2021-07-28 08:58 | PCM.PN.HOSP ---
Subjective Subjective Feels better but had an episode of shortness of breath last night was increased to about 10 L of oxygen. He did have a chest x-ray which on my read demonstrated a worsening interstitial edema. Cardiology did give him a dose of Lasix this morning Objective Data Objective Data Vital Signs: Vital Signs Temp Pulse Resp BP Pulse Ox 98.4 F 88 24 H 122/65 H 95 07/28/21 07:00 07/28/21 07:00 07/28/21 07:00 07/28/21 07:00 07/28/21 07:00 Oxygen Flow Rate (L/min) 10 Oxygen Delivery Method High Flow Weight: 265 lb 14.04 oz Body Mass Index (BMI) 33.4 Intake & Output: Intake and Output for Last 24 Hours 07/27/21 07/28/21 07/29/21 03:59 03:59 03:59 Intake Total 1891.97 / 1891.97 1650.00 / 1650.00 200 / 200 Output Total 2150 / 2350 1675 / 1675 525 / 525 Balance -258.03 / -458.03 -25.00 / -25.00 -325 / -325 Lab / Micro Data Result Diagrams: 07/27/21 05:05 07/27/21 05:05 Labs: Laboratory Results - last 24 hr 07/25/21 04:10: Diff Path Review Reviewed 07/26/21 04:15: Diff Path Review Reviewed 07/27/21 06:31: POC Glucose 202 H 07/27/21 11:39: POC Glucose 153 H 07/27/21 12:45: APTT 27.5 07/27/21 16:38: POC Glucose 102 07/27/21 19:35: APTT 74.3 H 07/27/21 21:53: POC Glucose 75 07/27/21 23:58: POC Glucose 113 H 07/28/21 02:50: APTT 56.6 H 07/28/21 08:11: POC Glucose 186 H Micro: Microbiology 07/24/21 21:55 Sputum, Expectorated/Coughed Gram Stain - Final 07/24/21 21:55 Sputum, Expectorated/Coughed Respiratory Culture - Final Staphylococcus aureus Streptococcus agalactiae (B) 07/25/21 15:20 Blood Culture (Wb) - Pic Blood Culture - Preliminary 07/24/21 08:55 Urine Catheter - Art Urine Culture - Final Culture exhibits no growth. 07/24/21 05:31 Blood Culture (Wb) - Anticubital Right Blood Culture - Final Staphylococcus aureus 07/24/21 05:20 Blood Culture (Wb) - Left Wrist Blood Culture - Final Staphylococcus aureus 07/24/21 08:10 Mucosa - Nasopharyngeal Respiratory Panel (PCR) - Final 07/24/21 08:20 Urine Catheter - Art Legionella Antigen - Final 07/24/21 08:20 Urine Catheter - Art Streptococcus pneumoniae Antigen (M - Final 07/24/21 04:44 Nasal Secretion SARS-CoV-2 Antigen (Rapid) - Final Radiography Diagnostic Testing: Radiology Impression Chest X-Ray 07/27/21 21:00 IMPRESSION: 1. No significant interval change airspace disease and bilateral pleural effusions. Electronically Signed: Marquise Nation DO at 0:06 EDT , Physical Exam Narrative Const alert, oriented x3 and no apparent distress General Appearance: cooperative HEENT normocephalic and moist oral mucous membranes Eyes PERRL, EOMs intact bilaterally and conjunctivae normal Neck supple and no JVD Resp normal respiratory effort, no retractions and no use of accessory muscles Auscultation: Mild rhonchi with diminished lung sounds; Negative for crackles, rales, wheezes Cardio regular rate, regular rhythm, S1 normal heart sound, S2 normal heart sound and no murmurs GI soft to palpation, non-tender and non-distended; Negative for hepatosplenomegaly Extremity General Extremity: edema; Negative for clubbing or cyanosis Skin no rashes or lesions noted Neuro no focal motor deficits and no sensory deficits noted Psych affect normal Appearance: appropriate Assessment & Plan Assessment/Plan (1) DKA (diabetic ketoacidosis): QUALIFIERS: Diabetes mellitus type: type 2 Diabetes mellitus complication detail: without coma Qualified Code(s): E11.10 - Type 2 diabetes mellitus with ketoacidosis without coma (2) Community acquired pneumonia: QUALIFIERS: Laterality: unspecified laterality Qualified Code(s): J18.9 - Pneumonia, unspecified organism (3) MIRANDA (acute kidney injury): (4) Acute hypoxemic respiratory failure: PLAN: 1. Acute on chronic hypoxic respiratory failure and sepsis due to pneumonia ?Multifactorial including COPD with acute exacerbation, pulmonary fibrosis from recent COVID 19 pneumonia in January 2021. Patient was placed on noninvasive ventilation BiPAP admitted to the intensive care unit consultation placed to pulmonary medicine. Patient was placed on empiric antibiotic therapy pending culture results obtained on admission. Patient remains significantly at risk for possible intubation. Consult placed to pulmonary medicine Case discussed with Dr. Aj ?Present on admission patient was managed with IV fluid resuscitation as well as broad-spectrum antibiotic therapy. Cultures obtained on admission so far positive for gram-positive cocci final identification and sensitivities pending ?07/25/2021; patient has been weaned off BiPAP however remains on high flow oxygen -07/26/2021; Patient blood cultures positive for Staph aureus, repeat cultures obtained and if positive patient may need to undergo further evaluation with OBINNA. Initial TTE obtained did not mention any evidence of endocarditis. Consult has subsequently been placed to ID. Patient remains in ICU and is currently on Levophed ?07/27/2021: We will repeat blood cultures today, blood cultures on the are positive for may not need to do a OBINNA if cleared, he is off Levophed and is down to 3 to 4 L nasal cannula maintain his oxygen saturations ?07/28/2021: We will hold off on a OBINNA today unless we can get his oxygen requirements down from his 10 L that he is currently at, antibiotics narrowed to Ancef 2. Diabetic ketoacidosis ?Managed with IV fluids, correction of electrolyte as well as insulin with every 4 BMPs ordered and subsequent adjustment made to therapy ?07/25/2021; anion gap down to 15. Patient insulin drip discontinued started on scheduled long-acting insulin with sliding scale coverage 07/26/2021; patient DKA resolved switch to long-acting insulin with subsequent adjustment made in view of significant hypoglycemia ?We will continue to monitor make adjustments to his insulin 3. Elevated troponin acute non-STEMI/acute on chronic systolic CHF?CAD/paroxysmal A. fib/HLD/sick sinus syndrome status post pacemaker ?Patient did present with chest pain but had no EKG changes consistent with acute ischemia. Admitted to intensive care unit serial cardiac enzymes ordered in addition to a 2D echo and consultation placed to cardiology. 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 Echo obtained demonstrated EF of 25 to 30% with severe LV systolic dysfunction with global LV hypokinesis ?Echo obtained on 03/10/2021 demonstrated EF of 50% ?07/26/2019 2 repeat echo obtained did reveal EF of 20 to 30% consistent with heart failure with reduced ejection fraction ?07/28/2021: Shortness of breath overnight with increased markings in his chest x-ray, will initiate him on Lasix 4. Acute kidney injury ?Superimposed on chronic kidney disease stage IIIa. Patient baseline creatinine 1.41.5 creatinine on admission was 3.34. Currently on IV fluid with serial BMPs ordered ?07/25/2021 no improvement in kidney function -07/26/2021; creatinine down to 2.84, peaked at 3.6 5. Anemia - Secondary to chronic disorder monitoring H&H and transfuse if patient becomes symptomatic or hemoglobin falls below 7 6. Hypothyroidism - Patient is on levothyroxine home dose continued 7. BPH ?Patient is on Flomax as well as dutasteride; discontinue 8. Gout ?Patient is on allopurinol 9. GERD ?Patient's PPI 10. Class I obesity with BMI of 33.2 ?Weight loss advised 11. Obstructive sleep apnea ?PAP therapy at night DVT: Heparin drip Charges/Coding Visit Charges Inpatient E&M: 99002 Subs Hosp L2
[2021-07-28 09:05] LABS: Hematocrit 38.2 % (40-54); Hemoglobin 12.6 g/dL (13.0-16.5); Mean Corpuscular Hgb 29.6 pg (27.0-32.0); Mean Corpuscular Volume 89.9 fL (80-94); POSITIVE COUNT YES; POSITIVE MORPHOLOGY YES; Platelet Count 134 K/mm3 (150-450); RBC Distribution Width SD 55.8 fl (35.1-43.9); Red Blood Count 4.25 M/mm3 (4.6-6.2)
[2021-07-28 09:07] LABS: Differential Indicated MANUAL DIFF
[2021-07-28 09:19] LABS: Partial Thromboplast Time 57.4 Seconds (24.1-36.2)
--- NOTE | 2021-07-28 09:30 | PCM.PN.REN ---
Subjective Subjective Following for MIRANDA on CKD Sitting up in bed. Denies any complaints. Acosta removed yesterday Objective Data Objective Data Vital Signs: Vital Signs Temp Pulse Resp BP Pulse Ox 98.4 F 88 24 H 122/65 H 95 07/28/21 07:00 07/28/21 07:00 07/28/21 07:00 07/28/21 07:00 07/28/21 07:00 Oxygen Flow Rate (L/min) 10 Oxygen Delivery Method High Flow Weight: 120.6 kg Body Mass Index (BMI) 33.4 Intake & Output: Intake and Output for Last 24 Hours 07/26/21 07/27/21 07/28/21 23:59 23:59 23:59 Intake Total 1560.00 / 1560.00 340 / 340 Output Total 1825 / 1825 625 / 625 Balance -265.00 / -265.00 -285 / -285 Lab / Micro Data Result Diagrams: 07/28/21 08:53 07/27/21 05:05 Labs: Laboratory Results - last 24 hr 07/25/21 04:10: Diff Path Review Reviewed 07/26/21 04:15: Diff Path Review Reviewed 07/27/21 06:31: POC Glucose 202 H 07/27/21 11:39: POC Glucose 153 H 07/27/21 12:45: APTT 27.5 07/27/21 16:38: POC Glucose 102 07/27/21 19:35: APTT 74.3 H 07/27/21 21:53: POC Glucose 75 07/27/21 23:58: POC Glucose 113 H 07/28/21 02:50: APTT 56.6 H 07/28/21 08:11: POC Glucose 186 H 07/28/21 08:53: WBC 23.0 H, RBC 4.25 L, Hgb 12.6 L, Hct 38.2 L, MCV 89.9, MCH 29.6, MCHC 33.0, RDW Std Deviation 55.8 H, RDW Coeff of Thang 17.0 H, Plt Count 134 L, MPV 11.0, Neut % (Auto) Not Reportable 07/28/21 08:53: APTT 57.4 H Micro: Microbiology 07/24/21 21:55 Sputum, Expectorated/Coughed Gram Stain - Final 07/24/21 21:55 Sputum, Expectorated/Coughed Respiratory Culture - Final Staphylococcus aureus Streptococcus agalactiae (B) 07/25/21 15:20 Blood Culture (Wb) - Pic Blood Culture - Preliminary 07/24/21 08:55 Urine Catheter - Acosta Urine Culture - Final Culture exhibits no growth. 07/24/21 05:31 Blood Culture (Wb) - Anticubital Right Blood Culture - Final Staphylococcus aureus 07/24/21 05:20 Blood Culture (Wb) - Left Wrist Blood Culture - Final Staphylococcus aureus 07/24/21 08:10 Mucosa - Nasopharyngeal Respiratory Panel (PCR) - Final 07/24/21 08:20 Urine Catheter - Acosta Legionella Antigen - Final 07/24/21 08:20 Urine Catheter - Acosta Streptococcus pneumoniae Antigen (M - Final 07/24/21 04:44 Nasal Secretion SARS-CoV-2 Antigen (Rapid) - Final Radiography Diagnostic Testing: Radiology Impression Chest X-Ray 07/27/21 21:00 IMPRESSION: 1. No significant interval change airspace disease and bilateral pleural effusions. Electronically Signed: Marquise Nation DO at 0:06 EDT , Physical Exam Narrative Alert and oriented HEENT: Head is normocephalic, atraumatic, pupils equal round reactive to light Cardio: S1, S2, rhythm rate regular Respiratory: diminished posterior breath sounds with faint rales. Extremities: trace edema b/l feet, no pitting edema legs Assessment & Plan Assessment/Plan (1) MIRANDA (acute kidney injury): PLAN: -The patient has underlying chronic kidney disease with serum creatinine of 1.5 mg/dL at baseline. -MIRANDA is prerenal with fractional excretion of sodium of less than 1% on 07/24/2021. -Serum Cr peaked 3.60mg/dL and has improved daily without needing [employer], today SCr 1.73mg/dL. -The patient is nonoliguric. Bps improved, off IV pressor. - acosta removed, monitor for any PVR. (2) DKA (diabetic ketoacidosis): QUALIFIERS: Diabetes mellitus type: type 2 Diabetes mellitus complication detail: without coma Qualified Code(s): E11.10 - Type 2 diabetes mellitus with ketoacidosis without coma PLAN: -Resolved. Management as per primary service. (3) Acute hypoxemic respiratory failure: PLAN: -He is being treated for possible pneumonia. IV antibiotics, Cefazolin. Initial blood cultures MSSA, repeat blood cx pending. (4) CHF exacerbation: QUALIFIERS: Heart failure type: unspecified Qualified Code(s): I50.9 - Heart failure, unspecified PLAN: -Cardiology following. Planning OBINNA once O2 requirements improve. Off Bipap and now on high flow O2. - The patient has decreased ejection fraction at 25 to 30% from 50% February 2021. - since admission holding diuretic (home regimen lasix 40mg bid). -We will monitor volume status closely with you. Cumulative I&O patient is net +2.5L. Received IV lasix 40mg today, reviewed last CXR - On heparin gtt. - will restart home lasix regimen which is 40mg bid starting tonight as he received lasix 40mg IV this am. Will evaluate volume status and renal function tomorrow if need to adjust diuretics.
[2021-07-28] MEDS: Metoprolol Tartrate 25 MG Tablet 12.5 MG PO ×2 (09:34→21:30)
[2021-07-28] MEDS: Allopurinol 300 MG Tablet PO (09:35)
[2021-07-28] MEDS: Pantoprazole Sodium 40 MG Tablet PO (09:35)
[2021-07-28] MEDS: guaiFENesin 1,200 MG Tablet 1200 MG PO ×2 (09:35→21:34)
[2021-07-28] MEDS: Finasteride 5 MG Tablet PO (09:35)
[2021-07-28 09:39] LABS: Anion Gap 8 (5-15); BUN 45 mg/dL (7-18); Calcium,Total 9.1 mg/dL (8.5-10.1); Chloride 112 mmol/L (98-107); Creatinine, Serum 1.73 mg/dL (0.70-1.30); EST Glomerular Filtration Rate 40 mL/min (>60); Est Glom Filt Rate - Afr Amer 49 mL/min (>60); Estimated Creatinine Clearance 36.96 ml/min; Glucose 180 mg/dL (74-106); Potassium 4.4 mmol/L (3.5-5.1); Sodium Level 139 mmol/L (136-145)
[2021-07-28 09:54] LABS: Lymphocyte 9 % (19-41); Metamyelocyte 4 % (0-1); Monocyte 6 % (0-10); Myelocyte 2 % (0-0); Neutrophil-Band 3 % (0-5); Neutrophil-Segmented 74 % (47-70); Platelet Estimate SLT DEC (ADEQ); Promyelocyte 2 % (0-0); Red Cell Morphology NORM C+C NORMAL (NORM C&C); Total Cells Counted 100 (MANUAL DIFF)
[2021-07-28 09:55] LABS: Absolute Lymphocyte Count 2.07 X10^3/uL (0.83-4.51); Absolute Neutrophil Count 17.7 X10^3/uL (2.0-7.7); Lymphocyte # 2.07 X10^3/ul (0.83-4.51); Neutrophil # 17.71 X10^3/uL (2.7-7.7)
[2021-07-28] MEDS: Insulin Lispro 100 UNIT/ML INSULN.PEN SC ×2 (11:23→21:42)
[2021-07-28] MEDS: Insulin Lispro 100 UNIT/ML INSULN.PEN 15 UNIT SC ×2 (11:24→21:43)
[2021-07-28] MEDS: Cefazolin 2 GM in 0.9% Normal Saline 100 ML IV ×2 (11:24→22:46)
[2021-07-28] MEDS: 0.9% Saline Lock 10 ML Syringe IV ×3 (11:27→22:46)
[2021-07-28 11:36] LABS: Bedside Glucose 234 mg/dL (74-106)
--- NOTE | 2021-07-28 11:46 | PCM.PN.ID ---
Physical Exam Narrative Feeling better, no fever, no n/v/d. Const alert and no apparent distress General Appearance: cooperative Resp normal air movement and clear to auscultation bilaterally Cardio regular rate and regular rhythm GI soft to palpation, non-tender and non-distended Skin no rashes or lesions noted ID ID: Route of nutrition/ use of supplements: [] Nutritional Intake: [] IV Site: [] Art Catheter: [] Assessment & Plan Assessment/Plan (1) MIRANDA (acute kidney injury): (2) Severe sepsis: (3) MSSA bacteremia: PLAN: septic shock due to mssa bacteremia, suspected pneumonia as source. Repeat bcx neg so far, will check another set today. TTE showed no veg, recommend OBINNA if safe to do so to eval his valves and device. Cont cefazolin. Has had covid vaccine x3. Will follow
--- NOTE | 2021-07-28 14:01 | PN.CARD_ITS ---
Subjective Subjective The patient states he has felt more short of breath and dyspneic since yesterday evening. Objective Data Vital Signs: Vital Signs Temp Pulse Resp BP Pulse Ox 98.3 F 95 28 H 103/57 L 92 07/28/21 13:11 07/28/21 13:11 07/28/21 13:11 07/28/21 13:11 07/28/21 13:11 Oxygen Flow Rate (L/min) 9 Oxygen Delivery Method High Flow Weight: 265 lb 14.04 oz Body Mass Index (BMI) 33.4 Intake & Output: Intake and Output for Last 24 Hours 07/26/21 07/27/21 07/28/21 23:59 23:59 23:59 Intake Total 1560.00 / 1560.00 450 / 450 Output Total 1825 / 1825 625 / 625 Balance -265.00 / -265.00 -175 / -175 Lab / Micro Data Result Diagrams: 07/28/21 08:53 07/28/21 08:53 Labs: Laboratory Results - last 24 hr 07/27/21 16:38: POC Glucose 102 07/27/21 19:35: APTT 74.3 H 07/27/21 21:53: POC Glucose 75 07/27/21 23:58: POC Glucose 113 H 07/28/21 02:50: APTT 56.6 H 07/28/21 08:11: POC Glucose 186 H 07/28/21 08:53: WBC 23.0 H, RBC 4.25 L, Hgb 12.6 L, Hct 38.2 L, MCV 89.9, MCH 29.6, MCHC 33.0, RDW Std Deviation 55.8 H, RDW Coeff of Thang 17.0 H, Plt Count 134 L, MPV 11.0, Neut % (Auto) Not Reportable, Absolute Neuts (auto) 17.7 H, Absolute Lymphs (auto) 2.07, Total Counted 100, Neutrophils % (Manual) 74 H, Band Neutrophils % 3, Lymphocytes % (Manual) 9 L, Monocytes % (Manual) 6, Metamyelocytes % 4 H, Myelocytes % 2 H, Promyelocytes % 2 H, Diff Path Review September, Platelet Estimate SLT DEC, RBC Morphology NORM C+C 07/28/21 08:53: Sodium 139, Potassium 4.4, Chloride 112 H, Carbon Dioxide 19.0 L , Anion Gap 8, BUN 45 H, Creatinine 1.73 H, Estim Creat Clear Calc 36.96, Est GFR (MDRD) Af Amer 49 L, Est GFR (MDRD) Non-Af 40 L, BUN/Creatinine Ratio 26.0 H , Glucose 180 H, Calcium 9.1 07/28/21 08:53: APTT 57.4 H 07/28/21 11:22: POC Glucose 234 H Micro: Microbiology 07/25/21 15:20 Blood Culture (Wb) - Pic Blood Culture - Preliminary Staphylococcus aureus 07/24/21 21:55 Sputum, Expectorated/Coughed Gram Stain - Final 07/24/21 21:55 Sputum, Expectorated/Coughed Respiratory Culture - Final Staphylococcus aureus Streptococcus agalactiae (B) Cardiology Labs/Tests 07/27/21 19:35: APTT 74.3 H 07/28/21 02:50: APTT 56.6 H 07/28/21 08:53: WBC 23.0 H, RBC 4.25 L, Hgb 12.6 L, Hct 38.2 L, MCV 89.9, MCH 29.6, MCHC 33.0, Plt Count 134 L, MPV 11.0, Neut % (Auto) Not Reportable, Absolute Neuts (auto) 17.7 H, Total Counted 100, Neutrophils % (Manual) 74 H, Band Neutrophils % 3, Lymphocytes % (Manual) 9 L, Monocytes % (Manual) 6, Metamyelocytes % 4 H, Myelocytes % 2 H, Promyelocytes % 2 H 07/28/21 08:53: Sodium 139, Potassium 4.4, Chloride 112 H, Carbon Dioxide 19.0 L , Anion Gap 8, BUN 45 H, Creatinine 1.73 H, Est GFR (MDRD) Af Amer 49 L, Est GFR (MDRD) Non-Af 40 L, BUN/Creatinine Ratio 26.0 H, Glucose 180 H, Calcium 9.1 07/28/21 08:53: APTT 57.4 H Rhythm: Sinus rhythm; paroxysmal atrial fibrillation; intermittent electronic ventricular paced beats Radiography Diagnostic Testing: Radiology Impression Chest X-Ray 07/27/21 21:00 IMPRESSION: 1. No significant interval change airspace disease and bilateral pleural effusions. Electronically Signed: Marquise Nation DO at 0:06 EDT , Physical Exam Const alert, oriented x3, no apparent distress and average body habitus Constitutional Narrative: on Bipap Orientation / Consciousness: awake HEENT normocephalic, head/scalp atraumatic, hearing grossly normal bilaterally and moist oral mucous membranes Eyes PERRL, EOMs intact bilaterally and conjunctivae normal Neck full ROM, supple and no JVD Resp Auscultation: rhonchi throughout (Scattered) Cardio regular rate and regular rhythm; Negative for no murmurs, no rub or no gallops Cardio Narrative: distant Rhythm: abnormal rhythm irregularly irregular Heart Sounds: S1 normal and S2 normal GI normal to inspection, nondistended, normoactive bowel sounds, soft to palpation and non-tender Extremity normal to inspection, no clubbing, cyanosis or edema and no pedal edema Skin no rashes or lesions noted Neuro oriented x3 and CN's II-XII intact bilaterally Psych mental status grossly normal Assessment & Plan Assessment/Plan (1) Atherosclerotic heart disease of crow coronary artery without angina pectoris: QUALIFIERS: [place] vs. transplanted heart: crow heart Qualified Code(s): I25.10 - Atherosclerotic heart disease of crow coronary artery without angina pectoris PLAN: The patient has a history of underlying CAD. 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 At the present time he will continue to be monitored. He will continue medical therapy as tolerated which ideally would include agents such as aspirin, nitrates if needed and tolerated, beta-blockers if tolerated by hemodynamics, lipid-lowering agents unless otherwise contraindicated, and additional antiplatelet/anticoagulant agents as deemed appropriate. (2) NSTEMI (non-ST elevated myocardial infarction): PLAN: The patient does have abnormal cardiac enzymes. The enzymes may be secondary to his acute noncardiovascular conditions and thus may represent a type II non-ST segment elevation PR. However, the patient does have underlying CAD and it is noted his LV systolic function/LVEF was reported decreased compared to prior studies. The patient will continue to be monitored and will continue medical therapy as tolerated. Over time, depending upon the patient's noncardiovascular comorbidities, he may need to be considered for repeat evaluation in the cardiac catheterization laboratory to assess for progression of CAD or graft vessel disease that requires additional revascularization therapy. (3) Cardiomyopathy: PLAN: The patient's LV systolic function/LVEF was reported as decreased compared to prior studies. Again it is unclear whether this is related to his noncardiovascular events versus progression of his crow cardiovascular disease. At the moment he will continue to be monitored. He should continue medical therapy as his comorbidities tolerate. Based upon his cardiopulmonary status this would include the addition of diuretic therapy to hopefully help improve his pulmonary condition. As noted above he may eventually need reevaluation in the cardiac c atheterization laboratory depending upon his comorbidities, etc. (4) Paroxysmal atrial fibrillation: PLAN: The patient does have a history of paroxysmal atrial fibrillation. He should continue rate limiting therapy as deemed appropriate. He is currently on IV heparin. Depending upon his clinical course and comorbidities and the need for additional procedures consideration can be given to eventually altering this to an oral anticoagulant but he may be able to tolerate. (5) History of permanent cardiac pacemaker placement: PLAN: The patient does have a permanent pacemaker. It has been followed as an outpatient and has been reported is functioning appropriately in the past. He can be reassessed as needed. (6) Hyperlipidemia: QUALIFIERS: Hyperlipidemia type: unspecified Qualified Code(s): E78.5 - Hyperlipidemia, unspecified PLAN: The patient has a report of statin related myalgias. He should continue lipid-lowering therapy as tolerated. (7) DKA (diabetic ketoacidosis): QUALIFIERS: Diabetes mellitus type: type 2 Diabetes mellitus complication detail: without coma Qualified Code(s): E11.10 - Type 2 diabetes mellitus with ketoacidosis without coma PLAN: The patient was reported as having DKA. It appears his glucose levels are coming under better control. He will continue to be followed by internal medicine. (8) MIRANDA (acute kidney injury): PLAN: The patient had acute on chronic renal insufficiency. His creatinine level is improving but not yet back to baseline. This would have to be taken into consideration with respect to medication adjustments as well as any future invasive evaluation regarding IV contrast that could exacerbate his underlying renal insufficiency and lead to IV contrast related nephropathy. (9) Acute on chronic respiratory failure: QUALIFIERS: Respiratory failure complication: hypoxia Qualified Code(s): J96.21 - Acute and chronic respiratory failure with hypoxia PLAN: The patient continues evaluation care per internal medicine and pulmonology/critical care medicine. He is being treated for MSSA related pulmonary conditions. He states his respiratory status has diminished. His examination appears to be demonstrating scattered rhonchi. His chest x-ray compared to a previous chest x-ray appears to demonstrate increased pulmonary infiltrates and/or vascularity. His O2 saturation has diminished requiring increased O2 nasal cannula. There is concern of both his cardiopulmonary disease process combining to affect his respiratory status. Him a cardiac standpoint he will receive additional IV diuretic therapy which may need to be adjusted over time. He should continue evaluation care by internal medicine and pulmonology for his pulmonary related issues as well. (10) Sepsis: PLAN: The patient has been reported as having bacteremia with MSSA. Per Dr. Song's note it appears this is thought to be related to his underlying pulmonary condition. He is continuing antibiotic therapy at this time. He was evaluated by infectious disease. He was recommended for OBINNA out of completeness based upon his cardiac condition and comorbidities and bacteremia. However this is being placed on indefinite hold based upon his underlying worsening pulmonary condition. (11) Hypotension: PLAN: The patient's blood pressure remains somewhat low. His medications will have to be taken into consideration with respect to how it affects his blood pressure. Addt'l Comments The above information was communicated to the [facility] staff as well as Dr. Sogn of the [facility] pulmonology and critical care staff. This note was generated using a voice recognition system and there may be incorrect words, spelling or punctuation that were not noted when reviewing the office note prior to saving.
[2021-07-28 16:26] LABS: Bedside Glucose 117 mg/dL (74-106)
[2021-07-28] MEDS: Furosemide 40 MG Tablet PO (17:05)
[2021-07-28] MEDS: Tamsulosin HCl 0.4 MG Capsule PO (17:05)
[2021-07-28] MEDS: Atorvastatin Calcium 20 MG Tablet PO (21:30)
[2021-07-28 22:00] LABS: Bedside Glucose 234 mg/dL (74-106)
[2021-07-29] VITALS (32 sets, daily range): BP systolic 81–123; BP diastolic 39–84; PULSE 73–97; RESP 12–34; TEMP 36.1–36.6; O2SAT 50–97
[2021-07-29 03:46] LABS: Bedside Glucose 118 mg/dL (74-106)
[2021-07-29 05:46] LABS: Hematocrit 34.9 % (40-54); Hemoglobin 11.3 g/dL (13.0-16.5); Mean Corp Hgb Conc 32.4 g/dL (32-36); Mean Corpuscular Hgb 29.4 pg (27.0-32.0); Mean Corpuscular Volume 90.6 fL (80-94); Mean Platelet Vol. 10.5 fl (6.2-12.0); POSITIVE COUNT YES; POSITIVE MORPHOLOGY YES; Platelet Count 125 K/mm3 (150-450); RBC Distribution Width SD 56.4 fl (35.1-43.9); Red Blood Count 3.85 M/mm3 (4.6-6.2)
[2021-07-29 05:48] LABS: Differential Indicated MANUAL DIFF
[2021-07-29 06:02] LABS: Partial Thromboplast Time 55.8 Seconds (24.1-36.2)
[2021-07-29 06:07] LABS: Anion Gap 6 (5-15); BUN 73 mg/dL (7-18); BUN/Creat Ratio 38.6 RATIO (10-20); Calcium,Total 8.7 mg/dL (8.5-10.1); Chloride 110 mmol/L (98-107); Creatinine, Serum 1.89 mg/dL (0.70-1.30); EST Glomerular Filtration Rate 36 mL/min (>60); Est Glom Filt Rate - Afr Amer 44 mL/min (>60); Estimated Creatinine Clearance 33.83 ml/min; Glucose 123 mg/dL (74-106); Potassium 3.8 mmol/L (3.5-5.1); Sodium Level 139 mmol/L (136-145)
[2021-07-29] MEDS: Levothyroxine 125 MCG Tablet PO (06:13)
[2021-07-29 06:17] LABS: Lymphocyte 3 % (19-41); Metamyelocyte 5 % (0-1); Monocyte 2 % (0-10); Myelocyte 6 % (0-0); Neutrophil-Band 6 % (0-5); Neutrophil-Segmented 77 % (47-70); Promyelocyte 1 % (0-0); Total Cells Counted 100 (MANUAL DIFF)
[2021-07-29 06:18] LABS: Platelet Estimate ADEQUATE (ADEQ); Red Cell Morphology NORM C+C NORMAL (NORM C&C)
[2021-07-29 06:19] LABS: Absolute Lymphocyte Count 0.75 X10^3/uL (0.83-4.51); Absolute Neutrophil Count 20.7 X10^3/uL (2.0-7.7); Lymphocyte # 0.75 X10^3/ul (0.83-4.51); Neutrophil # 20.73 X10^3/uL (2.7-7.7)
[2021-07-29] MEDS: Ipratropium/Albuterol Sulfate 3 ML AMPUL.NEB INHALATION ×4 (07:00→19:26)
[2021-07-29] MEDS: Budesonide Respules 0.5 MG/2 ML AMPUL.NEB. INHALATION ×2 (07:00→19:25)
[2021-07-29] MEDS: Furosemide 40 MG/4 ML Vial IV ×2 (08:15→14:59)
[2021-07-29] MEDS: 0.9% Saline Lock 10 ML Syringe IV ×3 (08:15→22:30)
[2021-07-29] MEDS: Insulin Lispro 100 UNIT/ML INSULN.PEN 15 UNIT SC ×4 (08:17→21:14)
[2021-07-29] MEDS: Finasteride 5 MG Tablet PO (08:20)
[2021-07-29] MEDS: guaiFENesin 1,200 MG Tablet 1200 MG PO ×2 (08:20→21:12)
[2021-07-29] MEDS: Pantoprazole Sodium 40 MG Tablet PO (08:20)
[2021-07-29] MEDS: Aspirin E.C. 81 MG Tablet PO (08:20)
[2021-07-29] MEDS: Allopurinol 300 MG Tablet PO (08:20)
[2021-07-29] MEDS: Metoprolol Tartrate 25 MG Tablet 12.5 MG PO (08:20)
[2021-07-29 08:31] LABS: Bedside Glucose 147 mg/dL (74-106)
--- NOTE | 2021-07-29 10:00 | PN.CARD_ITS ---
Subjective Subjective The patient believes his breathing may be somewhat better this morning. However he continues with a moist cough. He also is very tired and fatigued. Objective Data Vital Signs: Vital Signs Temp Pulse Resp BP Pulse Ox 97.0 F L 89 23 H 99/39 L 94 07/29/21 07:00 07/29/21 09:00 07/29/21 09:00 07/29/21 09:00 07/29/21 09:00 Oxygen Flow Rate (L/min) 8 Oxygen Delivery Method Nasal Cannula Weight: 256 lb 2.834 oz Body Mass Index (BMI) 33.4 Intake & Output: Intake and Output for Last 24 Hours 07/27/21 07/28/21 07/29/21 23:59 23:59 23:59 Intake Total 1560.00 / 1560.00 1330 / 1330 355 / 355 Output Total 1825 / 1825 1200 / 1200 300 / 300 Balance -265.00 / -265.00 130 / 130 55 / 55 Lab / Micro Data Result Diagrams: 07/29/21 05:40 07/29/21 05:40 Labs: Laboratory Results - last 24 hr 07/28/21 11:22: POC Glucose 234 H 07/28/21 16:17: POC Glucose 117 H 07/28/21 21:28: POC Glucose 234 H 07/29/21 03:27: POC Glucose 118 H 07/29/21 05:40: WBC 25.0 H, RBC 3.85 L, Hgb 11.3 L, Hct 34.9 L, MCV 90.6, MCH 29.4, MCHC 32.4, RDW Std Deviation 56.4 H, RDW Coeff of Thang 17.0 H, Plt Count 125 L, MPV 10.5, Neut % (Auto) Not Reportable, Absolute Neuts (auto) 20.7 H, Absolute Lymphs (auto) 0.75 L, Total Counted 100, Neutrophils % (Manual) 77 H, Band Neutrophils % 6 H, Lymphocytes % (Manual) 3 L, Monocytes % (Manual) 2, Metamyelocytes % 5 H, Myelocytes % 6 H, Promyelocytes % 1 H, Diff Path Review May , Platelet Estimate ADEQUATE, RBC Morphology NORM C+C 07/29/21 05:40: Sodium 139, Potassium 3.8, Chloride 110 H, Carbon Dioxide 23.0, Anion Gap 6, BUN 73 H, Creatinine 1.89 H, Estim Creat Clear Calc 33.83, Est GFR (MDRD) Af Amer 44 L, Est GFR (MDRD) Non-Af 36 L, BUN/Creatinine Ratio 38.6 H, Glucose 123 H, Calcium 8.7 07/29/21 05:40: APTT 55.8 H 07/29/21 08:13: POC Glucose 147 H Micro: Microbiology 07/25/21 15:20 Blood Culture (Wb) - Pic Blood Culture - Final Staphylococcus aureus 07/24/21 21:55 Sputum, Expectorated/Coughed Gram Stain - Final 07/24/21 21:55 Sputum, Expectorated/Coughed Respiratory Culture - Final Staphylococcus aureus Streptococcus agalactiae (B) Cardiology Labs/Tests 07/29/21 05:40: WBC 25.0 H, RBC 3.85 L, Hgb 11.3 L, Hct 34.9 L, MCV 90.6, MCH 29.4, MCHC 32.4, Plt Count 125 L, MPV 10.5, Neut % (Auto) Not Reportable, Absolute Neuts (auto) 20.7 H, Total Counted 100, Neutrophils % (Manual) 77 H, Band Neutrophils % 6 H, Lymphocytes % (Manual) 3 L, Monocytes % (Manual) 2, Metamyelocytes % 5 H, Myelocytes % 6 H, Promyelocytes % 1 H 07/29/21 05:40: Sodium 139, Potassium 3.8, Chloride 110 H, Carbon Dioxide 23.0, Anion Gap 6, BUN 73 H, Creatinine 1.89 H, Est GFR (MDRD) Af Amer 44 L, Est GFR (MDRD) Non-Af 36 L, BUN/Creatinine Ratio 38.6 H, Glucose 123 H, Calcium 8.7 07/29/21 05:40: APTT 55.8 H Rhythm: Sinus rhythm; electronic ventricular paced beats Physical Exam Const alert, oriented x3, no apparent distress and average body habitus Constitutional Narrative: on Bipap Orientation / Consciousness: awake HEENT normocephalic, head/scalp atraumatic, hearing grossly normal bilaterally and moist oral mucous membranes Eyes PERRL, EOMs intact bilaterally and conjunctivae normal Neck full ROM, supple and no JVD Resp Resp Narrative: Diminished t/o, on Bipap Auscultation: rhonchi throughout (Scattered) and wheezes scattered wheezes and throughout Cardio regular rate and regular rhythm; Negative for no murmurs, no rub or no gallops Cardio Narrative: distant Rhythm: abnormal rhythm irregularly irregular Heart Sounds: S1 normal and S2 normal GI normal to inspection, nondistended, normoactive bowel sounds, soft to palpation and non-tender Extremity normal to inspection, no clubbing, cyanosis or edema and no pedal edema Skin no rashes or lesions noted Neuro oriented x3 and CN's II-XII intact bilaterally Psych mental status grossly normal Assessment & Plan Assessment/Plan (1) 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 transplanted heart: [place] heart Qualified Code(s): I25.10 - Atherosclerotic heart disease of [place] coronary artery without angina pectoris PLAN: The patient has a history of underlying CAD. 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 At the present time he will continue to be monitored. He will continue medical therapy as tolerated which ideally would include agents such as aspirin, nitrates if needed and tolerated, beta-blockers if tolerated by hemodynamics, lipid-lowering agents unless otherwise contraindicated, and additional antiplatelet/anticoagulant agents as deemed appropriate. (2) NSTEMI (non-ST elevated myocardial infarction): PLAN: The patient does have abnormal cardiac enzymes. The enzymes may be secondary to his acute noncardiovascular conditions and thus may represent a type II non-ST segment elevation NC. However, the patient does have underlying CAD and it is noted his LV systolic fu nction/LVEF was reported decreased compared to prior studies. The patient will continue to be monitored and will continue medical therapy as tolerated. Over time, depending upon the patient's noncardiovascular comorbidities, he may need to be considered for repeat evaluation in the cardiac catheterization laboratory to assess for progression of CAD or graft vessel disease that requires additional revascularization therapy. (3) Cardiomyopathy: PLAN: The patient's LV systolic function/LVEF was reported as decreased compared to prior studies. Again it is unclear whether this is related to his noncardiovascular events versus progression of his [place] cardiovascular disease. At the moment he will continue to be monitored. He should continue medical therapy as his comorbidities tolerate. He did receive additional p.o. and IV diuretics. Based upon his ongoing respiratory issues he is going to be placed on IV diuretics with the hopes that this will help assist with any volume related issues from a pulmonary standpoint. As noted above he may eventually need reevaluation in the cardiac catheterization laboratory depending upon his comorbidities, etc. (4) Paroxysmal atrial fibrillation: PLAN: The patient does have a history of paroxysmal atrial fibrillation. He should continue rate limiting therapy as deemed appropriate. He is currently on IV heparin. Depending upon his clinical course and comorbidities and the need for additional procedures consideration can be given to eventually altering this to an oral anticoagulant but he may be able to tolerate. (5) History of permanent cardiac pacemaker placement: PLAN: The patient does have a permanent pacemaker. It has been followed as an outpatient and has been reported is functioning appropriately in the past. He can be reassessed as needed. (6) Hyperlipidemia: QUALIFIERS: Hyperlipidemia type: unspecified Qualified Code(s): E78.5 - Hyperlipidemia, unspecified PLAN: The patient has a report of statin related myalgias. He should continue lipid-lowering therapy as tolerated. (7) DKA (diabetic ketoacidosis): QUALIFIERS: Diabetes mellitus type: type 2 Diabetes mellitus complication detail: without coma Qualified Code(s): E11.10 - Type 2 diabetes mellitus with ketoacidosis without coma PLAN: The patient was reported as having DKA. It appears his glucose levels are coming under better control. He will continue to be followed by internal medicine. (8) MIRANDA (acute kidney injury): PLAN: The patient had acute on chronic renal insufficiency. His creatinine level has been fluctuating. This does need to be monitored and taken into consideration with respect any future IV contrast related studies. (9) Acute on chronic respiratory failure: QUALIFIERS: Respiratory failure complication: hypoxia Qualified Code(s): J96.21 - Acute and chronic respiratory failure with hypoxia PLAN: The patient continues evaluation care per internal medicine and pulmonology/critical care medicine. He is being treated for MSSA related pulmonary conditions. He states his respiratory status has diminished. His examination appears to be demonstrating scattered rhonchi. His chest x-ray compared to a previous chest x-ray appears to demonstrate increased pulmonary infiltrates and/or vascularity. His O2 saturation has diminished requiring increased O2 nasal cannula. There is concern of both his cardiopulmonary disease process combining to affect his respiratory status. Him a cardiac standpoint he will receive additional IV diuretic therapy which may need to be adjusted over time. He should continue evaluation care by internal medicine and pulmonology for his pulmonary related issues as well. (10) Sepsis: PLAN: The patient has been reported as having bacteremia with MSSA. Per Dr. Song's note it appears this is thought to be related to his underlying pulmonary condition. He is continuing antibiotic therapy at this time. He was evaluated by infectious disease. He was recommended for OBINNA out of completeness based upon his cardiac condition and comorbidities and bacteremia. However this is being placed on indefinite hold based upon his underlying worsening pulmonary condition. (11) Hypotension: PLAN: The patient's blood pressure remains somewhat low. His medications will have to be taken into consideration with respect to how it affects his blood pressure. Addt'l Comments The aforementioned information was conveyed to the patient and the [facility] staff. This note was generated using a voice recognition system and there may be incorrect words, spelling or punctuation that were not noted when reviewing the office note prior to saving.
[2021-07-29 10:09] LABS: Pathologist Review Reviewed
--- NOTE | 2021-07-29 10:24 | PCM.PN.INT ---
Assessment & Plan Assessment/Plan (1) Sepsis: PLAN: RECOMMENDATIONS: 1. Wean supplemental oxygen as tolerated to maintain saturations at or above 90%. 2. Continue PAP therapy per home regimen with naps and nightly. 3. Careful use of diuretics. 4. Await OBINNA for evaluation of MSSA 5. Continue heparin infusion. Await cardiology recommendations 6. Continue basal and sliding scale insulin coverage. 7. Continue bronchopulmonary hygiene with PEP and incentive spirometry. IMPRESSIONS: 1. Acute on chronic hypoxemic respiratory failure secondary to MSSA pneumonia The patient presented to the hospital with worsening shortness of breath and chest pain. The patient has a known history of a severe mixed ventilatory defect with moderate reduction in diffusing capacity and chest imaging which revealed evidence of an evolving interstitial lung process. Prior 6-minute walk test revealed the need for 2 L/min of oxygen at rest and 4 L/min with exertion. The patient's medical history is also significant for coronary disease status post CABG. Chest imaging demonstrated background interstitial changes with what appeared to be some basilar predominant opacities. Patient likely has a combination of both embolic pneumonia and CHF. Patient reinitiated on diuretics. We will have to watch closely as patient will have a narrow therapeutic window from a volume status given his concomitant septic state. 2. Septic shock Resolved. Patient growing MSSA from multiple blood cultures. Clinical suspicion for pulmonary etiology. Patient has responded well. Patient's blood pressure remained stable. Patient has had increased FiO2 requirements, but this appears to be secondary to a lack of diuretic. 3. Chest pain/NSTEMI Initially felt to be secondary to demand ischemia in the setting of numbers 1 and 2. However, the patient's surface echocardiogram demonstrated a significant reduction in ejection fraction along with severe LV systolic dysfunction, which was not present on prior echo. Cardiology is currently following to assist with medical management. Continue heparin infusion for now. Unclear if this is secondary to problem #2 versus coronary artery disease. There is discussion about a OBINNA when respiratory status is improved. 4. Diabetic ketoacidosis Resolved. Continue basal and sliding scale insulin coverage. 5. Acute on chronic kidney disease Stable. Most likely prerenal in etiology. Anticipate further improvement in renal function with volume expansion and stabilization of hemodynamics. Continue to monitor urine output. No current indication for renal replacement therapy. Nephrology is following. 6. Advanced age/paroxysmal atrial fibrillation/anemia/hypothyroidism/sick sinus syndrome/sleep apnea Complicates care, management, recovery and prognosis. Continue home medications as indicated. The patient can be continued on his home BiPAP with a pressure support of 12/7 centimeters of water. Subjective Subjective Patient slightly improved compared to yesterday. Patient is still reporting a moist cough. Patient is not reporting any chest pain. Patient does have significant shortness of breath on exertion. OBINNA was not completed secondary to hypoxic concerns. Objective Data Objective Data Vital Signs: Vital Signs Temp Pulse Resp BP Pulse Ox 36.1 C L 85 23 H 83/49 L 94 07/29/21 07:00 07/29/21 10:00 07/29/21 10:00 07/29/21 10:00 07/29/21 10:00 Oxygen Flow Rate (L/min) 8 Oxygen Delivery Method Nasal Cannula Weight: 116.2 kg Body Mass Index (BMI) 33.4 Intake & Output: Intake and Output for Last 24 Hours 07/27/21 07/28/21 07/29/21 23:59 23:59 23:59 Intake Total 1560.00 / 1560.00 1330 / 1330 355 / 355 Output Total 1825 / 1825 1200 / 1200 300 / 300 Balance -265.00 / -265.00 130 / 130 55 / 55 Lab / Micro Data Result Diagrams: 07/29/21 05:40 07/29/21 05:40 Labs: Laboratory Results - last 24 hr 07/27/21 05:05: Diff Path Review Reviewed 07/28/21 11:22: POC Glucose 234 H 07/28/21 16:17: POC Glucose 117 H 07/28/21 21:28: POC Glucose 234 H 07/29/21 03:27: POC Glucose 118 H 07/29/21 05:40: WBC 25.0 H, RBC 3.85 L, Hgb 11.3 L, Hct 34.9 L, MCV 90.6, MCH 29.4, MCHC 32.4, RDW Std Deviation 56.4 H, RDW Coeff of Thang 17.0 H, Plt Count 125 L, MPV 10.5, Neut % (Auto) Not Reportable, Absolute Neuts (auto) 20.7 H, Absolute Lymphs (auto) 0.75 L, Total Counted 100, Neutrophils % (Manual) 77 H, Band Neutrophils % 6 H, Lymphocytes % (Manual) 3 L, Monocytes % (Manual) 2, Metamyelocytes % 5 H, Myelocytes % 6 H, Promyelocytes % 1 H, Diff Path Review May , Platelet Estimate ADEQUATE, RBC Morphology NORM C+C 07/29/21 05:40: Sodium 139, Potassium 3.8, Chloride 110 H, Carbon Dioxide 23.0, Anion Gap 6, BUN 73 H, Creatinine 1.89 H, Estim Creat Clear Calc 33.83, Est GFR (MDRD) Af Amer 44 L, Est GFR (MDRD) Non-Af 36 L, BUN/Creatinine Ratio 38.6 H, Glucose 123 H, Calcium 8.7 07/29/21 05:40: APTT 55.8 H 07/29/21 08:13: POC Glucose 147 H Micro: Microbiology 07/25/21 15:20 Blood Culture (Wb) - Pic Blood Culture - Final Staphylococcus aureus 07/24/21 21:55 Sputum, Expectorated/Coughed Gram Stain - Final 07/24/21 21:55 Sputum, Expectorated/Coughed Respiratory Culture - Final Staphylococcus aureus Streptococcus agalactiae (B) 07/24/21 08:55 Urine Catheter - Art Urine Culture - Final Culture exhibits no growth. 07/24/21 05:31 Blood Culture (Wb) - Anticubital Right Blood Culture - Final Staphylococcus aureus 07/24/21 05:20 Blood Culture (Wb) - Left Wrist Blood Culture - Final Staphylococcus aureus 07/24/21 08:10 Mucosa - Nasopharyngeal Respiratory Panel (PCR) - Final 07/24/21 08:20 Urine Catheter - Art Legionella Antigen - Final 07/24/21 08:20 Urine Catheter - Art Streptococcus pneumoniae Antigen (M - Final 07/24/21 04:44 Nasal Secretion SARS-CoV-2 Antigen (Rapid) - Final Physical Exam Const alert, oriented x3 and no apparent distress Constitutional Narrative: On nasal cannula General Appearance: cooperative Nutritional Appearance: obese HEENT normocephalic and head/scalp atraumatic Teeth and Ging[place]: edentulous Eyes PERRL, EOMs intact bilaterally and conjunctivae normal Neck supple General: trachea midline Chest Chest Narrative: Malunion of sternum Resp normal respiratory effort and normal air movement Resp Narrative: Rhonchi do improve with coughing Auscultation: rhonchi and diminished lung sounds; Negative for rales or wheezes Cardio regular rate, S1 normal heart sound and S2 normal heart sound Rhythm: abnormal rhythm regularly irregular GI normal to inspection, nondistended, normoactive bowel sounds Extremity General Extremity: edema bilateral lower extremity Details: trace; Negative for clubbing Skin no rashes or lesions noted Neuro CN's II-XII intact bilaterally, moves all extremities and no focal motor deficits Psych cooperative and affect normal Charges/Coding Visit Charges Inpatient E&M: 97661 Subs Hosp L3
--- NOTE | 2021-07-29 10:58 | PN.HOSP_ITS ---
Subjective Subjective Feels like he is breathing okay however he is requiring more oxygen. Be placed back on BiPAP overnight and he still at around 10 L nasal cannula. Objective Data Objective Data Vital Signs: Vital Signs Temp Pulse Resp BP Pulse Ox 97.0 F L 83 26 H 91/62 92 07/29/21 07:00 07/29/21 10:47 07/29/21 10:47 07/29/21 10:45 07/29/21 10:47 Oxygen Flow Rate (L/min) 6 Oxygen Delivery Method Nasal Cannula Weight: 256 lb 2.834 oz Body Mass Index (BMI) 33.4 Intake & Output: Intake and Output for Last 24 Hours 07/28/21 07/29/21 07/30/21 03:59 03:59 03:59 Intake Total 1650.00 / 1650.00 1300 / 1300 245 / 245 Output Total 1675 / 1675 1100 / 1100 300 / 300 Balance -25.00 / -25.00 200 / 200 -55 / -55 Lab / Micro Data Result Diagrams: 07/29/21 05:40 07/29/21 05:40 Labs: Laboratory Results - last 24 hr 07/27/21 05:05: Diff Path Review Reviewed 07/28/21 11:22: POC Glucose 234 H 07/28/21 16:17: POC Glucose 117 H 07/28/21 21:28: POC Glucose 234 H 07/29/21 03:27: POC Glucose 118 H 07/29/21 05:40: WBC 25.0 H, RBC 3.85 L, Hgb 11.3 L, Hct 34.9 L, MCV 90.6, MCH 29.4, MCHC 32.4, RDW Std Deviation 56.4 H, RDW Coeff of Thang 17.0 H, Plt Count 125 L, MPV 10.5, Neut % (Auto) Not Reportable, Absolute Neuts (auto) 20.7 H, Absolute Lymphs (auto) 0.75 L, Total Counted 100, Neutrophils % (Manual) 77 H, Band Neutrophils % 6 H, Lymphocytes % (Manual) 3 L, Monocytes % (Manual) 2, Metamyelocytes % 5 H, Myelocytes % 6 H, Promyelocytes % 1 H, Diff Path Review May , Platelet Estimate ADEQUATE, RBC Morphology NORM C+C 07/29/21 05:40: Sodium 139, Potassium 3.8, Chloride 110 H, Carbon Dioxide 23.0, Anion Gap 6, BUN 73 H, Creatinine 1.89 H, Estim Creat Clear Calc 33.83, Est GFR (MDRD) Af Amer 44 L, Est GFR (MDRD) Non-Af 36 L, BUN/Creatinine Ratio 38.6 H, Glucose 123 H, Calcium 8.7 07/29/21 05:40: APTT 55.8 H 07/29/21 08:13: POC Glucose 147 H Micro: Microbiology 07/25/21 15:20 Blood Culture (Wb) - Pic Blood Culture - Final Staphylococcus aureus 07/24/21 21:55 Sputum, Expectorated/Coughed Gram Stain - Final 07/24/21 21:55 Sputum, Expectorated/Coughed Respiratory Culture - Final Staphylococcus aureus Streptococcus agalactiae (B) 07/24/21 08:55 Urine Catheter - Art Urine Culture - Final Culture exhibits no growth. 07/24/21 05:31 Blood Culture (Wb) - Anticubital Right Blood Culture - Final Staphylococcus aureus 07/24/21 05:20 Blood Culture (Wb) - Left Wrist Blood Culture - Final Staphylococcus aureus 07/24/21 08:10 Mucosa - Nasopharyngeal Respiratory Panel (PCR) - Final 07/24/21 08:20 Urine Catheter - Art Legionella Antigen - Final 07/24/21 08:20 Urine Catheter - Art Streptococcus pneumoniae Antigen (M - Final 07/24/21 04:44 Nasal Secretion SARS-CoV-2 Antigen (Rapid) - Final Physical Exam Narrative Const alert, oriented x3 and no apparent distress General Appearance: cooperative HEENT normocephalic and moist oral mucous membranes Eyes PERRL, EOMs intact bilaterally and conjunctivae normal Neck supple and no JVD Resp normal respiratory effort, no retractions and no use of accessory muscles Auscultation: Rhonchi with diminished lung sounds; Negative for crackles, rales, wheezes Cardio regular rate, irregular rhythm, S1 normal heart sound, S2 normal heart sound and no murmurs GI soft to palpation, non-tender and non-distended; Negative for hepatosplenomegaly Extremity General Extremity: edema; Negative for clubbing or cyanosis Skin no rashes or lesions noted Neuro no focal motor deficits and no sensory deficits noted Psych affect normal Appearance: appropriate Assessment & Plan Assessment/Plan (1) DKA (diabetic ketoacidosis): QUALIFIERS: Diabetes mellitus type: type 2 Diabetes mellitus complication detail: without coma Qualified Code(s): E11.10 - Type 2 diabetes mellitus with ketoacidosis without coma (2) Community acquired pneumonia: QUALIFIERS: Laterality: unspecified laterality Qualified Code(s): J18.9 - Pneumonia, unspecified organism (3) MIRANDA (acute kidney injury): (4) Acute hypoxemic respiratory failure: PLAN: 1. Acute on chronic hypoxic respiratory failure and septic shock due to pneumonia ?Multifactorial including COPD with acute exacerbation, pulmonary fibrosis from recent COVID 19 pneumonia in January 2021. Patient was placed on noninvasive ventilation BiPAP admitted to the intensive care unit consultation placed to pulmonary medicine. Patient was placed on empiric antibiotic therapy pending culture results obtained on admission. Patient remains significantly at risk for possible intubation. Consult placed to pulmonary medicine Case discussed with Dr. Aj ?Present on admission patient was managed with IV fluid resuscitation as well as broad-spectrum antibiotic therapy. Cultures obtained on admission so far positive for gram-positive cocci final identification and sensitivities pending ?07/25/2021; patient has been weaned off BiPAP however remains on high flow oxyge n -07/26/2021; Patient blood cultures positive for Staph aureus, repeat cultures obtained and if positive patient may need to undergo further evaluation with OBINNA. Initial TTE obtained did not mention any evidence of endocarditis. Consult has subsequently been placed to ID. Patient remains in ICU and is currently on Levophed ?07/27/2021: We will repeat blood cultures today, blood cultures on the are positive for may not need to do a OBINNA if cleared, he is off Levophed and is down to 3 to 4 L nasal cannula maintain his oxygen saturations ?07/28/2021: We will hold off on a OBINNA today unless we can get his oxygen requirements down from his 10 L that he is currently at, antibiotics narrowed to Ancef ?07/29/2021: His respiratory failure is likely now due to volume overload from sepsis protocol, he is 3 L positive. We have increased his IV Lasix to 3 times daily dosing per cardiology will have a low threshold for transferring back to the ICU given his borderline blood pressures in the setting of his septic shock. 2. Diabetic ketoacidosis ?Managed with IV fluids, correction of electrolyte as well as insulin with every 4 BMPs ordered and subsequent adjustment made to therapy ?07/25/2021; anion gap down to 15. Patient insulin drip discontinued started on scheduled long-acting insulin with sliding scale coverage 07/26/2021; patient DKA resolved switch to long-acting insulin with subsequent adjustment made in view of significant hypoglycemia ?We will continue to monitor make adjustments to his insulin 3. Elevated troponin acute non-STEMI/acute on chronic systolic CHF?CAD/paroxysm al A. fib/HLD/sick sinus syndrome status post pacemaker ?Patient did present with chest pain but had no EKG changes consistent with acute ischemia. Admitted to intensive care unit serial cardiac enzymes ordered in addition to a 2D echo and consultation placed to cardiology. 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 Echo obtained demonstrated EF of 25 to 30% with severe LV systolic dysfunction with global LV hypokinesis ?Echo obtained on 03/10/2021 demonstrated EF of 50% ?07/26/2019: repeat echo obtained did reveal EF of 20 to 30% consistent with heart failure with reduced ejection fraction ?07/28/2021: Shortness of breath overnight with increased markings in his chest x-ray, will initiate him on Lasix 4. Acute kidney injury ?Superimposed on chronic kidney disease stage IIIa. Patient baseline creatinine 1.41.5 creatinine on admission was 3.34. Currently on IV fluid with serial BMPs ordered ?07/25/2021 no improvement in kidney function -07/26/2021; creatinine down to 2.84, peaked at 3.6 ?07/29/2021: Creatinine down to 1.89 5. Anemia - Secondary to chronic disorder monitoring H&H and transfuse if patient becomes symptomatic or hemoglobin falls below 7 6. Hypothyroidism - Patient is on levothyroxine home dose continued 7. BPH ?Patient is on Flomax as well as dutasteride; discontinue 8. Gout ?Patient is on allopurinol 9. GERD ?Patient's PPI 10. Class I obesity with BMI of 33.2 ?Weight loss advised 11. Obstructive sleep apnea ?PAP therapy at night DVT: Heparin drip Charges/Coding Visit Charges Inpatient E&M: 46405 Subs Hosp L2
[2021-07-29] MEDS: Cefazolin 2 GM in 0.9% Normal Saline 100 ML IV ×2 (11:07→22:29)
--- NOTE | 2021-07-29 11:29 | PN.RENAL_ITS ---
Subjective Subjective Sitting in chair, no complaints. Reports feeling better overall. No nausea. at bedside. Objective Data Objective Data Vital Signs: Vital Signs Temp Pulse Resp BP Pulse Ox 97.0 F L 89 28 H 103/48 L 96 07/29/21 07:00 07/29/21 11:06 07/29/21 11:06 07/29/21 11:06 07/29/21 11:06 Oxygen Flow Rate (L/min) 6 Oxygen Delivery Method Nasal Cannula Weight: 116.2 kg Body Mass Index (BMI) 33.4 Intake & Output: Intake and Output for Last 24 Hours 07/27/21 07/28/21 07/29/21 23:59 23:59 23:59 Intake Total 1560.00 / 1560.00 1330 / 1330 355 / 355 Output Total 1825 / 1825 1200 / 1200 300 / 300 Balance -265.00 / -265.00 130 / 130 55 / 55 Lab / Micro Data Result Diagrams: 07/29/21 05:40 07/29/21 05:40 Labs: Laboratory Results - last 24 hr 07/27/21 05:05: Diff Path Review Reviewed 07/28/21 11:22: POC Glucose 234 H 07/28/21 16:17: POC Glucose 117 H 07/28/21 21:28: POC Glucose 234 H 07/29/21 03:27: POC Glucose 118 H 07/29/21 05:40: WBC 25.0 H, RBC 3.85 L, Hgb 11.3 L, Hct 34.9 L, MCV 90.6, MCH 29.4, MCHC 32.4, RDW Std Deviation 56.4 H, RDW Coeff of Thang 17.0 H, Plt Count 125 L, MPV 10.5, Neut % (Auto) Not Reportable, Absolute Neuts (auto) 20.7 H, Absolute Lymphs (auto) 0.75 L, Total Counted 100, Neutrophils % (Manual) 77 H, Band Neutrophils % 6 H, Lymphocytes % (Manual) 3 L, Monocytes % (Manual) 2, Metamyelocytes % 5 H, Myelocytes % 6 H, Promyelocytes % 1 H, Diff Path Review May , Platelet Estimate ADEQUATE, RBC Morphology NORM C+C 07/29/21 05:40: Sodium 139, Potassium 3.8, Chloride 110 H, Carbon Dioxide 23.0, Anion Gap 6, BUN 73 H, Creatinine 1.89 H, Estim Creat Clear Calc 33.83, Est GFR (MDRD) Af Amer 44 L, Est GFR (MDRD) Non-Af 36 L, BUN/Creatinine Ratio 38.6 H, Glucose 123 H, Calcium 8.7 07/29/21 05:40: APTT 55.8 H 07/29/21 08:13: POC Glucose 147 H Micro: Microbiology 07/27/21 09:30 Blood Culture (Wb) - Anticubital Left Blood Culture - Preliminary No growth in 48 hours. 07/25/21 15:20 Blood Culture (Wb) - Pic Blood Culture - Final Staphylococcus aureus 07/24/21 21:55 Sputum, Expectorated/Coughed Gram Stain - Final 07/24/21 21:55 Sputum, Expectorated/Coughed Respiratory Culture - Final Staphylococcus aureus Streptococcus agalactiae (B) 07/24/21 08:55 Urine Catheter - Acosta Urine Culture - Final Culture exhibits no growth. 07/24/21 05:31 Blood Culture (Wb) - Anticubital Right Blood Culture - Final Staphylococcus aureus 07/24/21 05:20 Blood Culture (Wb) - Left Wrist Blood Culture - Final Staphylococcus aureus 07/24/21 08:10 Mucosa - Nasopharyngeal Respiratory Panel (PCR) - Final 07/24/21 08:20 Urine Catheter - Acosta Legionella Antigen - Final 07/24/21 08:20 Urine Catheter - Acosta Streptococcus pneumoniae Antigen (M - Final 07/24/21 04:44 Nasal Secretion SARS-CoV-2 Antigen (Rapid) - Final Physical Exam Narrative Alert and oriented HEENT: Head is normocephalic, atraumatic, pupils equal round reactive to light Cardio: S1, S2, rhythm rate regular Respiratory: diminished posterior breath sounds with faint rales posteriorly. Extremities: no pitting edema legs or feet Assessment & Plan Assessment/Plan (1) MIRANDA (acute kidney injury): PLAN: -The patient has underlying chronic kidney disease with serum creatinine of 1.5 mg/dL at baseline. -MIRANDA is prerenal with fractional excretion of sodium of less than 1% on 07/24/2021. -Serum Cr peaked 3.60mg/dL and has improved daily without needing PATROL POLICE SERGEANT, today SCr 1.89mg/dL. -The patient is nonoliguric. - acosta removed, monitor for any PVR. (2) DKA (diabetic ketoacidosis): QUALIFIERS: Diabetes mellitus type: type 2 Diabetes mellitus complication detail: without coma Qualified Code(s): E11.10 - Type 2 diabetes mellitus with ketoacidosis without coma PLAN: -Resolved. Management as per primary service. (3) Acute hypoxemic respiratory failure: PLAN: -He is being treated for possible pneumonia. IV antibiotics, Cefazolin. Initial blood cultures MSSA, repeat blood cx pending. (4) CHF exacerbation: QUALIFIERS: Heart failure type: unspecified Qualified Code(s): I50.9 - Heart failure, unspecified PLAN: -Cardiology following. Possibly planning OBINNA once O2 requirements improve. Off Bipap. - The patient has decreased ejection fraction at 25 to 30% from 50% February 14. - since admission holding diuretic (home regimen lasix 40mg bid). Lasix restarted on 07/28 -We will monitor volume status closely with you. On Lasix IV 40mg TID. Cumulative I&O patient is net ~3L, however per weights his weight is down to 116kg (from ~120kg). Patient states weighs he himself every am at home and baseline weight ~251lbs (114kg). He is on 1.5L FR. - On heparin gtt.
[2021-07-29] MEDS: Insulin Lispro 100 UNIT/ML INSULN.PEN SC ×2 (11:49→21:14)
[2021-07-29 11:56] LABS: Bedside Glucose 221 mg/dL (74-106)
--- NOTE | 2021-07-29 12:24 | PCM.PN.ID ---
Physical Exam Narrative Feeling about the same, still some dyspnea. No fever. Const alert and no apparent distress General Appearance: cooperative Resp clear to auscultation bilaterally Auscultation: diminished lung sounds Cardio regular rate and regular rhythm GI soft to palpation, non-tender and non-distended Skin no rashes or lesions noted ID ID: Route of nutrition/ use of supplements: [] Nutritional Intake: [] IV Site: [] Art Catheter: [] Assessment & Plan Assessment/Plan (1) MIRANDA (acute kidney injury): (2) Severe sepsis: (3) MSSA bacteremia: PLAN: septic shock due to mssa bacteremia, suspected pneumonia as source. Repeat bcx neg so far. TTE showed no veg, recommend OBINNA if safe to do so to eval his valves and device. Cont cefazolin. Has had covid vaccine x3. O2 improved this afternoon. Will follow
[2021-07-29] MEDS: Acetaminophen 325 MG Tablet 650 MG PO (14:57)
--- NOTE | 2021-07-29 15:03 | CHAPLAIN ---
Type of Pastoral Visit ___ Initial Visit _x__ Follow-up Visit ___ On-call Visit ___ General Patient Visit ___ Spiritual Assessment ___ Family Conference ___ Bereavement ___ Rapid Response ___ Code Blue ___ Other (describe below) Pastoral Care Referral From ___ Patient _x__ Family ___ Nurse ___ Physician ___ Carton Maker ___ Zigzag Elastic Attacher ___ Other (describe below) Sacrament/Intervention _x__ Active listening ___ Anointing ___ Jewish ___ Bereavement ___ Communion ___ Cristin exploration ___ ___ Life review ___ Prayer ___ Reconciliation ___ Sacrament of Sick ___ Supportive presence ___ Wedding ___ Other (describe below) Pastoral Comments met with spouse of patient as the patient had therapy working with him; spouse reports it's about the same, but ok since it is not any worse; offer of support; reminder to spouse to care for herself too; spouse expresses appreciation for the visit and care
[2021-07-29] MEDS: Tamsulosin HCl 0.4 MG Capsule PO (17:11)
[2021-07-29 17:16] LABS: Bedside Glucose 127 mg/dL (74-106)
[2021-07-29] MEDS: Atorvastatin Calcium 20 MG Tablet PO (21:13)
[2021-07-29 21:31] LABS: Bedside Glucose 160 mg/dL (74-106)
[2021-07-30] VITALS (28 sets, daily range): BP systolic 96–120; BP diastolic 45–89; PULSE 82–103; RESP 12–29; TEMP 36.1–37; O2SAT 90–96
[2021-07-30 01:51] LABS: Bedside Glucose 96 mg/dL (74-106)
[2021-07-30 05:59] LABS: Hematocrit 33.4 % (40-54); Hemoglobin 10.7 g/dL (13.0-16.5); Mean Corpuscular Volume 90.5 fL (80-94); POSITIVE COUNT YES; POSITIVE MORPHOLOGY YES; Platelet Count 143 K/mm3 (150-450); RBC Distribution Width CV 16.8 % (11.6-14.6); RBC Distribution Width SD 55.4 fl (35.1-43.9); Red Blood Count 3.69 M/mm3 (4.6-6.2)
[2021-07-30 06:02] LABS: Differential Indicated MANUAL DIFF
[2021-07-30 06:08] LABS: Partial Thromboplast Time 54.9 Seconds (24.1-36.2)
[2021-07-30 06:12] LABS: Metamyelocyte 2 % (0-1); Myelocyte 10 % (0-0); Neutrophil-Band 3 % (0-5); Neutrophil-Segmented 69 % (47-70); Promyelocyte 1 % (0-0); Total Cells Counted 100 (MANUAL DIFF)
[2021-07-30 06:13] LABS: Eosinophil 2 % (0-5); Lymphocyte 6 % (19-41); Monocyte 7 % (0-10); Platelet Estimate ADEQUATE (ADEQ); Red Cell Morphology NORM C+C NORMAL (NORM C&C)
[2021-07-30 06:14] LABS: Neutrophil # 18.01 X10^3/uL (2.7-7.7)
[2021-07-30] MEDS: Furosemide 40 MG/4 ML Vial IV ×3 (06:20→21:39)
[2021-07-30] MEDS: Levothyroxine 125 MCG Tablet PO (06:21)
[2021-07-30 06:23] LABS: Anion Gap 7 (5-15); BUN 73 mg/dL (7-18); BUN/Creat Ratio 38.8 RATIO (10-20); Calcium,Total 8.9 mg/dL (8.5-10.1); Chloride 108 mmol/L (98-107); Creatinine, Serum 1.88 mg/dL (0.70-1.30); EST Glomerular Filtration Rate 37 mL/min (>60); Est Glom Filt Rate - Afr Amer 44 mL/min (>60); Estimated Creatinine Clearance 34.01 ml/min; Glucose 65 mg/dL (74-106); Magnesium 1.7 mg/dL (1.6-2.6); Potassium 3.6 mmol/L (3.5-5.1); Sodium Level 139 mmol/L (136-145)
[2021-07-30] MEDS: 0.9% Saline Lock 10 ML Syringe IV ×2 (06:25→21:48)
[2021-07-30] MEDS: Heparin Injection (Vial) 5,000 UNIT/ML VIAL IV (06:34)
[2021-07-30] MEDS: Ipratropium/Albuterol Sulfate 3 ML AMPUL.NEB INHALATION ×4 (06:55→20:05)
[2021-07-30] MEDS: Budesonide Respules 0.5 MG/2 ML AMPUL.NEB. INHALATION ×2 (06:55→20:05)
--- NOTE | 2021-07-30 07:21 | PN.CC_ITS ---
Assessment & Plan Assessment/Plan (1) Sepsis: PLAN: RECOMMENDATIONS: 1. Wean supplemental oxygen as tolerated to maintain saturations at or above 90%. 2. Continue PAP therapy per home regimen with naps and nightly. 3. Careful use of diuretics. 4. Await OBINNA for evaluation of MSSA endocarditis 5. Continue heparin infusion. Await cardiology recommendations 6. Continue basal and sliding scale insulin coverage. 7. Continue bronchopulmonary hygiene with PEP and incentive spirometry. IMPRESSIONS: 1. Acute on chronic hypoxemic respiratory failure secondary to MSSA pneumonia The patient presented to the hospital with worsening shortness of breath and chest pain. The patient has a known history of a severe mixed ventilatory defect with moderate reduction in diffusing capacity and chest imaging which revealed evidence of an evolving interstitial lung process. Prior 6-minute walk test revealed the need for 2 L/min of oxygen at rest and 4 L/min with exertion. The patient's medical history is also significant for coronary disease status post CABG. Chest imaging demonstrated background interstitial changes with what appeared to be some basilar predominant opacities. Patient likely has a combination of both embolic pneumonia and CHF. Patient reinitiated on diuretics, but intermittent doses have been held secondary to blood pressure. We will have to watch closely as patient will have a narrow therapeutic window from a volume status given his concomitant septic state. 2. Septic shock Resolved. Patient growing MSSA from multiple blood cultures. Clinical suspicion for pulmonary etiology. Patient has responded well. Patient's blood pressure remained stable. Patient has had increased FiO2 requirements, but this appears to be secondary to a lack of diuretic. Patient has been reinitiated 3. Chest pain/NSTEMI Initially felt to be secondary to demand ischemia in the setting of numbers 1 and 2. However, the patient's surface echocardiogram demonstrated a significant reduction in ejection fraction along with severe LV systolic dysfun ction, which was not present on prior echo. Cardiology is currently following to assist with medical management. Continue heparin infusion for now. Unclear if this is secondary to problem #2 versus coronary artery disease. There is discussion about a OBINNA when respiratory status is improved. 4. Diabetic ketoacidosis Resolved. Continue basal and sliding scale insulin coverage. 5. Acute on chronic kidney disease Stable. Most likely prerenal in etiology. Anticipate further improvement in renal function with volume expansion and stabilization of hemodynamics. Continue to monitor urine output. No current indication for renal replacement therapy. Nephrology is following. 6. Advanced age/paroxysmal atrial fibrillation/anemia/hypothyroidism/sick sinus syndrome/sleep apnea Complicates care, management, recovery and prognosis. Continue home medications as indicated. The patient can be continued on his home BiPAP with a pressure support of 12/7 centimeters of water. Subjective Subjective Patient did okay overnight. No acute issues were reported. Patient did have to have a evening dose of Lasix held secondary to marginal blood pressures. Patient did receive Lasix this morning. Patient subjectively feels improved compared to yesterday. Patient still has some wheezing, but states he has not received his breathing treatment yet this morning on my evaluation. Objective Data Objective Data Vital Signs: Vital Signs Temp Pulse Resp BP Pulse Ox 36.1 C L 102 H 21 H 115/60 94 07/30/21 06:00 07/30/21 06:00 07/30/21 06:00 07/30/21 06:00 07/30/21 06:00 Oxygen Flow Rate (L/min) 10 Oxygen Delivery Method High Flow Weight: 118.8 kg Body Mass Index (BMI) 33.4 Intake & Output: Intake and Output for Last 24 Hours 07/28/21 07/29/21 07/30/21 23:59 23:59 23:59 Intake Total 1330 / 1330 1746.67 / 1986.67 709 / 709 Output Total 1200 / 1200 950 / 1400 975 / 975 Balance 130 / 130 796.67 / 586.67 -266 / -266 Lab / Micro Data Result Diagrams: 07/30/21 04:25 07/30/21 04:25 Labs: Laboratory Results - last 24 hr 07/27/21 05:05: Diff Path Review Reviewed 07/29/21 08:13: POC Glucose 147 H 07/29/21 11:48: POC Glucose 221 H 07/29/21 17:10: POC Glucose 127 H 07/29/21 21:11: POC Glucose 160 H 07/30/21 01:44: POC Glucose 96 07/30/21 04:25: Sodium 139, Potassium 3.6, Chloride 108 H, Carbon Dioxide 24.0, Anion Gap 7, BUN 73 H, Creatinine 1.88 H, Estim Creat Clear Calc 34.01, Est GFR (MDRD) Af Amer 44 L, Est GFR (MDRD) Non-Af 37 L, BUN/Creatinine Ratio 38.8 H, Glucose 65 L, Calcium 8.9, Magnesium 1.7 07/30/21 04:25: APTT 54.9 H 07/30/21 04:25: WBC 25.0 H, RBC 3.69 L, Hgb 10.7 L, Hct 33.4 L, MCV 90.5, MCH 29.0, MCHC 32.0, RDW Std Deviation 55.4 H, RDW Coeff of Thang 16.8 H, Plt Count 143 L, MPV 11.0, Neut % (Auto) Not Reportable, Absolute Neuts (auto) 18.0 H, Absolute Lymphs (auto) 1.50, Total Counted 100, Neutrophils % (Manual) 69, Band Neutrophils % 3, Lymphocytes % (Manual) 6 L, Monocytes % (Manual) 7, Eosinophils % (Manual) 2, Metamyelocytes % 2 H, Myelocytes % 10 H, Promyelocytes % 1 H, Diff Path Review September, Platelet Estimate ADEQUATE, RBC Morphology NORM C+C Micro: Microbiology 07/28/21 12:35 Blood Culture (Wb) - Anticubital Left Blood Culture - Preliminary No growth in 48 hours. 07/27/21 09:30 Blood Culture (Wb) - Anticubital Left Blood Culture - Preliminary No growth in 48 hours. 07/25/21 15:20 Blood Culture (Wb) - Pic Blood Culture - Final Staphylococcus aureus 07/24/21 21:55 Sputum, Expectorated/Coughed Gram Stain - Final 07/24/21 21:55 Sputum, Expectorated/Coughed Respiratory Culture - Final Staphylococcus aureus Streptococcus agalactiae (B) 07/24/21 08:55 Urine Catheter - Art Urine Culture - Final Culture exhibits no growth. 07/24/21 05:31 Blood Culture (Wb) - Anticubital Right Blood Culture - Final Staphylococcus aureus 07/24/21 05:20 Blood Culture (Wb) - Left Wrist Blood Culture - Final Staphylococcus aureus 07/24/21 08:10 Mucosa - Nasopharyngeal Respiratory Panel (PCR) - Final 07/24/21 08:20 Urine Catheter - Art Legionella Antigen - Final 07/24/21 08:20 Urine Catheter - Art Streptococcus pneumoniae Antigen (M - Final 07/24/21 04:44 Nasal Secretion SARS-CoV-2 Antigen (Rapid) - Final Physical Exam Const alert, oriented x3 and no apparent distress Constitutional Narrative: On nasal cannula General Appearance: cooperative Nutritional Appearance: obese HEENT normocephalic and head/scalp atraumatic Teeth and Gingiva: edentulous Eyes PERRL, EOMs intact bilaterally and conjunctivae normal Neck supple General: trachea midline Chest Chest Narrative: Malunion of sternum Resp normal respiratory effort and normal air movement Resp Narrative: Rhonchi do improve with coughing Auscultation: rhonchi, wheezes and diminished lung sounds; Negative for rales Cardio regular rate, S1 normal heart sound and S2 normal heart sound Rhythm: abnormal rhythm regularly irregular Heart Sounds: murmur GI normal to inspection, nondistended, normoactive bowel sounds Extremity General Extremity: edema bilateral lower extremity Details: trace; Negative for clubbing Skin no rashes or lesions noted Neuro CN's II-XII intact bilaterally, moves all extremities and no focal motor deficits Psych cooperative and affect normal Charges/Coding Visit Charges Inpatient E&M: 57876 Subs Hosp L3
[2021-07-30 07:46] LABS: Bedside Glucose 97 mg/dL (74-106)
--- NOTE | 2021-07-30 08:53 | PN.CARD_ITS ---
Subjective Subjective The patient is awake and alert. He states his breathing may be somewhat better today. He denies any ongoing chest discomfort. Objective Data Vital Signs: Vital Signs Temp Pulse Resp BP Pulse Ox 98.6 F 87 20 H 109/89 H 93 07/30/21 07:20 07/30/21 07:31 07/30/21 07:31 07/30/21 07:20 07/30/21 07:29 Oxygen Flow Rate (L/min) 10 Oxygen Delivery Method High Flow Weight: 261 lb 14.546 oz Body Mass Index (BMI) 33.4 Intake & Output: Intake and Output for Last 24 Hours 07/28/21 07/29/21 07/30/21 23:59 23:59 23:59 Intake Total 1330 / 1330 1746.67 / 1986.67 709 / 709 Output Total 1200 / 1200 950 / 1400 975 / 975 Balance 130 / 130 796.67 / 586.67 -266 / -266 Lab / Micro Data Result Diagrams: 07/30/21 04:25 07/30/21 04:25 Labs: Laboratory Results - last 24 hr 07/27/21 05:05: Diff Path Review Reviewed 07/29/21 11:48: POC Glucose 221 H 07/29/21 17:10: POC Glucose 127 H 07/29/21 21:11: POC Glucose 160 H 07/30/21 01:44: POC Glucose 96 07/30/21 04:25: Sodium 139, Potassium 3.6, Chloride 108 H, Carbon Dioxide 24.0, Anion Gap 7, BUN 73 H, Creatinine 1.88 H, Estim Creat Clear Calc 34.01, Est GFR (MDRD) Af Amer 44 L, Est GFR (MDRD) Non-Af 37 L, BUN/Creatinine Ratio 38.8 H, Glucose 65 L, Calcium 8.9, Magnesium 1.7 07/30/21 04:25: APTT 54.9 H 07/30/21 04:25: WBC 25.0 H, RBC 3.69 L, Hgb 10.7 L, Hct 33.4 L, MCV 90.5, MCH 2 9.0, MCHC 32.0, RDW Std Deviation 55.4 H, RDW Coeff of Thang 16.8 H, Plt Count 143 L, MPV 11.0, Neut % (Auto) Not Reportable, Absolute Neuts (auto) 18.0 H, Absolute Lymphs (auto) 1.50, Total Counted 100, Neutrophils % (Manual) 69, Band Neutrophils % 3, Lymphocytes % (Manual) 6 L, Monocytes % (Manual) 7, Eosinophils % (Manual) 2, Metamyelocytes % 2 H, Myelocytes % 10 H, Promyelocytes % 1 H, Diff Path Review September, Platelet Estimate ADEQUATE, RBC Morphology NORM C+C 07/30/21 07:37: POC Glucose 97 Micro: Microbiology 07/28/21 12:35 Blood Culture (Wb) - Anticubital Left Blood Culture - Preliminary No growth in 48 hours. 07/27/21 09:30 Blood Culture (Wb) - Anticubital Left Blood Culture - Preliminary No growth in 48 hours. 07/25/21 15:20 Blood Culture (Wb) - Pic Blood Culture - Final Staphylococcus aureus Cardiology Labs/Tests 07/30/21 04:25: Sodium 139, Potassium 3.6, Chloride 108 H, Carbon Dioxide 24.0, Anion Gap 7, BUN 73 H, Creatinine 1.88 H, Est GFR (MDRD) Af Amer 44 L, Est GFR (MDRD) Non-Af 37 L, BUN/Creatinine Ratio 38.8 H, Glucose 65 L, Calcium 8.9, Magnesium 1.7 07/30/21 04:25: APTT 54.9 H 07/30/21 04:25: WBC 25.0 H, RBC 3.69 L, Hgb 10.7 L, Hct 33.4 L, MCV 90.5, MCH 2 9.0, MCHC 32.0, Plt Count 143 L, MPV 11.0, Neut % (Auto) Not Reportable, Absolute Neuts (auto) 18.0 H, Total Counted 100, Neutrophils % (Manual) 69, Band Neutrophils % 3, Lymphocytes % (Manual) 6 L, Monocytes % (Manual) 7, Eosinophils % (Manual) 2, Metamyelocytes % 2 H, Myelocytes % 10 H, Promyelocytes % 1 H Rhythm: Sinus rhythm; PVCs; [employer] ventricular paced rhythm Physical Exam Const alert, oriented x3, no apparent distress and average body habitus Constitutional Narrative: on Bipap Orientation / Consciousness: awake HEENT normocephalic, head/scalp atraumatic, hearing grossly normal bilaterally and moist oral mucous membranes Eyes PERRL, EOMs intact bilaterally and conjunctivae normal Neck full ROM, supple and no JVD Resp Resp Narrative: Pulmonary findings may be somewhat less prominent than yesterday Auscultation: rhonchi throughout (Scattered) and wheezes scattered wheezes and throughout Cardio regular rate and regular rhythm; Negative for no murmurs, no rub or no gallops Cardio Narrative: distant Rhythm: abnormal rhythm irregularly irregular Heart Sounds: S1 normal and S2 normal GI normal to inspection, nondistended, normoactive bowel sounds, soft to palpation and non-tender Extremity normal to inspection, no clubbing, cyanosis or edema and no pedal edema Skin no rashes or lesions noted Neuro oriented x3 and CN's II-XII intact bilaterally Psych mental status grossly normal Assessment & Plan Assessment/Plan (1) Atherosclerotic heart disease of [place] coronary artery without angina pectoris: QUALIFIERS: [place] vs. transplanted heart: [place] heart Qualified Code(s): I25.10 - Atherosclerotic heart disease of [place] coronary artery without angina pectoris PLAN: The patient has a history of underlying CAD. 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 At the present time he will continue to be monitored. He will continue medical therapy as tolerated which ideally would include agents such as aspirin, nitrates if needed and tolerated, beta-blockers if tolerated by hemodynamics, lipid-lowering agents unless otherwise contraindicated, and additional antiplatelet/anticoagulant agents as deemed appropriate. (2) NSTEMI (non-ST elevated myocardial infarction): PLAN: The patient does have abnormal cardiac enzymes. The enzymes may be secondary to his acute noncardiovascular conditions and thus may represent a type II non-ST segment elevation ID. However, the patient does have underlying CAD and it is noted his LV systolic function/LVEF was reported decreased compared to prior studies. The patient will continue to be monitored and will continue medical therapy as tolerated. Over time, depending upon the patient's noncardiovascular comorbidities, he may need to be considered for repeat evaluation in the cardiac catheterization laboratory to assess for progression of CAD or graft vessel disease that requires additional revascularization therapy. (3) Cardiomyopathy: PLAN: The patient's LV systolic function/LVEF was reported as decreased compared to prior studies. Again it is unclear whether this is related to his noncardiovascular events versus progression of his [place] cardiovascular disease. At the moment he will continue to be monitored. He should continue medical therapy as his comorbidities tolerate. He has been placed on scheduled IV diuretic therapy. His IV diuretics have been intermittently held based upon concerns of lower blood pressures. Hopefully he can continue with these to assist in any evidence of concern such as CHF/pulmonary edema as part of his pulmonary disease process. (4) Paroxysmal atrial fibrillation: PLAN: The patient does have a history of paroxysmal atrial fibrillation. He should continue rate limiting therapy as deemed appropriate. He is currently on IV heparin. Depending upon his clinical course and comorbidities and the need for additional procedures consideration can be given to eventually altering this to an oral anticoagulant but he may be able to tolerate. (5) History of permanent cardiac pacemaker placement: PLAN: The patient does have a permanent pacemaker. It has been followed as an outpatient and has been reported is functioning appropriately in the past. He can be reassessed as needed. (6) Hyperlipidemia: QUALIFIERS: Hyperlipidemia type: unspecified Qualified Code(s): E78.5 - Hyperlipidemia, unspecified PLAN: The patient has a report of statin related myalgias. He should continue lipid-lowering therapy as tolerated. (7) DKA (diabetic ketoacidosis): QUALIFIERS: Diabetes mellitus type: type 2 Diabetes mellitus complication detail: without coma Qualified Code(s): E11.10 - Type 2 diabetes mellitus with ketoacidosis without coma PLAN: The patient was reported as having DKA. It appears his glucose levels are coming under better control. He will continue to be followed by internal medicine. (8) MIRANDA (acute kidney injury): PLAN: The patient had acute on chronic renal insufficiency. His creatinine level has been fluctuating. This does need to be monitored and taken into consideration with respect any future IV contrast related studies. (9) Acute on chronic respiratory failure: QUALIFIERS: Respiratory failure complication: hypoxia Qualified Code(s): J96.21 - Acute and chronic respiratory failure with hypoxia PLAN: The patient continues evaluation care per internal medicine and pulmonology/critical care medicine. He is being treated for MSSA related pulmonary conditions. His chest x-ray compared to a previous chest x-ray appears to demonstrate increased pulmonary infiltrates and/or vascularity. His O2 saturation has diminished requiring increased O2 nasal cannula. There is concern of both his cardiopulmonary disease process combining to affect his respiratory status. Him a cardiac standpoint he will receive additional IV diuretic therapy which may need to be adjusted over time. He will need future chest x-ray follow-up to assist in his pulmonary evaluation and care. (10) Sepsis: PLAN: The patient has been reported as having bacteremia with MSSA. Per Dr. Song's note it appears this is thought to be related to his underlying pulmonary condition. He is continuing antibiotic therapy at this time. He was evaluated by infectious disease. He was recommended for OBINNA out of completeness based upon his cardiac condition and comorbidities and bacteremia. However this is being placed on indefinite hold based upon his underlying worsening pulmonary condition. (11) Hypotension: PLAN: The patient's blood pressure remains somewhat low. His medications will have to be taken into consideration with respect to how it affects his blood pressure. Addt'l Comments Overall the patient continues with his underlying pulmonary disease process. His WBC has increased. He is continuing combined medical management. It would not be unreasonable to obtain a chest x-ray after he has an attempt at diuresis. Again there is caution with proceeding with a OBINNA based upon his respiratory process and O2 requirements. The patient's case was discussed and reviewed with Dr. Song.
[2021-07-30] MEDS: Aspirin E.C. 81 MG Tablet PO (09:21)
[2021-07-30] MEDS: Metoprolol Tartrate 25 MG Tablet 12.5 MG PO ×2 (09:21→21:39)
[2021-07-30] MEDS: Allopurinol 300 MG Tablet PO (09:22)
[2021-07-30] MEDS: guaiFENesin 1,200 MG Tablet 1200 MG PO ×2 (09:22→21:39)
[2021-07-30] MEDS: Finasteride 5 MG Tablet PO (09:22)
[2021-07-30] MEDS: Pantoprazole Sodium 40 MG Tablet PO (09:22)
--- NOTE | 2021-07-30 10:29 | PN.HOSP_ITS ---
Subjective Subjective Continues to require about 10 L nasal cannula, however he continues to state that he also feels better. Examination occurred after he transfers from the bed to the chair and he was tachycardic and short of breath but he did recover fairly quickly Objective Data Objective Data Vital Signs: Vital Signs Temp Pulse Resp BP Pulse Ox 98.6 F 98 20 H 120/64 93 07/30/21 07:20 07/30/21 09:21 07/30/21 07:31 07/30/21 09:21 07/30/21 07:29 Oxygen Flow Rate (L/min) 10 Oxygen Delivery Method High Flow Weight: 261 lb 14.546 oz Body Mass Index (BMI) 33.4 Intake & Output: Intake and Output for Last 24 Hours 07/29/21 07/30/21 07/31/21 03:59 03:59 03:59 Intake Total 1300 / 1300 1986.67 / 1985.67 400 / 400 Output Total 1100 / 1100 1400 / 1400 525 / 525 Balance 200 / 200 586.67 / 586.67 -125 / -125 Lab / Micro Data Result Diagrams: 07/30/21 04:25 07/30/21 04:25 Labs: Laboratory Results - last 24 hr 07/29/21 11:48: POC Glucose 221 H 07/29/21 17:10: POC Glucose 127 H 07/29/21 21:11: POC Glucose 160 H 07/30/21 01:44: POC Glucose 96 07/30/21 04:25: Sodium 139, Potassium 3.6, Chloride 108 H, Carbon Dioxide 24.0, Anion Gap 7, BUN 73 H, Creatinine 1.88 H, Estim Creat Clear Calc 34.01, Est GFR (MDRD) Af Amer 44 L, Est GFR (MDRD) Non-Af 37 L, BUN/Creatinine Ratio 38.8 H, Glucose 65 L, Calcium 8.9, Magnesium 1.7 07/30/21 04:25: APTT 54.9 H 07/30/21 04:25: WBC 25.0 H, RBC 3.69 L, Hgb 10.7 L, Hct 33.4 L, MCV 90.5, MCH 29.0, MCHC 32.0, RDW Std Deviation 55.4 H, RDW Coeff of Thang 16.8 H, Plt Count 143 L, MPV 11.0, Neut % (Auto) Not Reportable, Absolute Neuts (auto) 18.0 H, Absolute Lymphs (auto) 1.50, Total Counted 100, Neutrophils % (Manual) 69, Band Neutrophils % 3, Lymphocytes % (Manual) 6 L, Monocytes % (Manual) 7, Eosinophils % (Manual) 2, Metamyelocytes % 2 H, Myelocytes % 10 H, Promyelocytes % 1 H, Diff Path Review September, Platelet Estimate ADEQUATE, RBC Morphology NORM C+C 07/30/21 07:37: POC Glucose 97 Micro: Microbiology 07/28/21 12:35 Blood Culture (Wb) - Anticubital Left Blood Culture - Preliminary No growth in 48 hours. 07/27/21 09:30 Blood Culture (Wb) - Anticubital Left Blood Culture - Pre liminary No growth in 48 hours. 07/25/21 15:20 Blood Culture (Wb) - Pic Blood Culture - Final Staphylococcus aureus 07/24/21 21:55 Sputum, Expectorated/Coughed Gram Stain - Final 07/24/21 21:55 Sputum, Expectorated/Coughed Respiratory Culture - Final Staphylococcus aureus Streptococcus agalactiae (B) 07/24/21 08:55 Urine Catheter - Art Urine Culture - Final Culture exhibits no growth. 07/24/21 05:31 Blood Culture (Wb) - Anticubital Right Blood Culture - Final Staphylococcus aureus 07/24/21 05:20 Blood Culture (Wb) - Left Wrist Blood Culture - Final Staphylococcus aureus 07/24/21 08:10 Mucosa - Nasopharyngeal Respiratory Panel (PCR) - Final 07/24/21 08:20 Urine Catheter - Art Legionella Antigen - Final 07/24/21 08:20 Urine Catheter - Art Streptococcus pneumoniae Antigen (M - Final 07/24/21 04:44 Nasal Secretion SARS-CoV-2 Antigen (Rapid) - Final Physical Exam Narrative Const alert, oriented x3 and no apparent distress General Appearance: cooperative HEENT normocephalic and moist oral mucous membranes Eyes PERRL, EOMs intact bilaterally and conjunctivae normal Neck supple and no JVD Resp normal respiratory effort, no retractions and no use of accessory muscles Auscultation: Rhonchi with diminished lung sounds; Negative for crackles, rales, wheezes Cardio regular rate, irregular rhythm, S1 normal heart sound, S2 normal heart sound and no murmurs GI soft to palpation, non-tender and non-distended; Negative for hepatosplenomegaly Extremity General Extremity: edema; Negative for clubbing or cyanosis Skin no rashes or lesions noted Neuro no focal motor deficits and no sensory deficits noted Psych affect normal Appearance: appropriate Assessment & Plan Assessment/Plan (1) DKA (diabetic ketoacidosis): QUALIFIERS: Diabetes mellitus type: type 2 Diabetes mellitus complication detail: without coma Qualified Code(s): E11.10 - Type 2 diabetes mellitus with ketoacidosis without coma (2) Community acquired pneumonia: QUALIFIERS: Laterality: unspecified laterality Qualified Code(s): J18.9 - Pneumonia, unspecified organism (3) MIRANDA (acute kidney injury): (4) Acute hypoxemic respiratory failure: PLAN: 1. Acute on chronic hypoxic respiratory failure and septic shock due to pneumonia and bacteremia ?Multifactorial including COPD with acute exacerbation, pulmonary fibrosis from recent COVID 19 pneumonia in January 2021. Patient was placed on noninvasive ventilation BiPAP admitted to the intensive care unit consultation placed to pulmonary medicine. Patient was placed on empiric antibiotic therapy pending culture results obtained on admission. Patient remains significantly at risk for possible intubation. Consult placed to pulmonary medicine Case discussed with Dr. Aj ?Present on admission patient was managed with IV fluid resuscitation as well as broad-spectrum antibiotic therapy. Cultures obtained on admission so far positive for gram-positive cocci final identification and sensitivities pending ?07/25/2021; patient has been weaned off BiPAP however remains on high flow oxygen -07/26/2021; Patient blood cultures positive for Staph aureus, repeat cultures obtained and if positive patient may need to undergo further evaluation with OBINNA. Initial TTE obtained did not mention any evidence of endocarditis. Consult has subsequently been placed to ID. Patient remains in ICU and is currently on Levophed ?07/27/2021: We will repeat blood cultures today, blood cultures on the are positive for may not need to do a OBINNA if cleared, he is off Levophed and is down to 3 to 4 L nasal cannula maintain his oxygen saturations ?07/28/2021: We will hold off on a OBINNA today unless we can get his oxygen requirements down from his 10 L that he is currently at, antibiotics narrowed to Ancef ?07/29/2021: His respiratory failure is likely now due to volume overload from sepsis protocol, he is 3 L positive. We have increased his IV Lasix to 3 times daily dosing per cardiology will have a low threshold for transferring back to the ICU given his borderline blood pressures in the setting of his septic shock. ?07/30/2021: Continue with IV Lasix, and inhalers. From on a fluid restriction yesterday he is now almost 4 L positive will see if we cannot take off any further IV fluids medications to help with his volume status. Blood cultures are normal and cleared fairly quickly. Currently on Ancef, sputum culture with MSSA and strep, blood cultures with MSSA 2. Diabetic ketoacidosis ?Managed with IV fluids, correction of electrolyte as well as insulin with every 4 BMPs ordered and subsequent adjustment made to therapy ?07/25/2021; anion gap down to 15. Patient insulin drip discontinued started on scheduled long-acting insulin with sliding scale coverage 07/26/2021; patient DKA resolved switch to long-acting insulin with subsequent ad justment made in view of significant hypoglycemia ?We will continue to monitor make adjustments to his insulin 3. Elevated troponin acute non-STEMI/acute on chronic systolic CHF?CAD/paroxysmal A. fib/HLD/sick sinus syndrome status post pacemaker ?Patient did present with chest pain but had no EKG changes consistent with acute ischemia. Admitted to intensive care unit serial cardiac enzymes ordered in addition to a 2D echo and consultation placed to cardiology. 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 Echo obtained demonstrated EF of 25 to 30% with severe LV systolic dysfunction with global LV hypokinesis ?Echo obtained on 03/10/2021 demonstrated EF of 50% ?07/26/2019: repeat echo obtained did reveal EF of 20 to 30% consistent with heart failure with reduced ejection fraction ?07/28/2021: Shortness of breath overnight with increased markings in his chest x-ray, will initiate him on Lasix ?07/30/2021: Continue to recommend BiPAP whenever he is sleeping and aggressive diuresis 4. Acute kidney injury ?Superimposed on chronic kidney disease stage IIIa. Patient baseline creatinine 1.41.5 creatinine on admission was 3.34. Currently on IV fluid with serial BMPs ordered ?07/25/2021 no improvement in kidney function -07/26/2021; creatinine down to 2.84, peaked at 3.6 ?07/29/2021: Creatinine down to 1.89 ?07/30/2021: Creatinine is 1.88 today will monitor and appreciate nephrology's assistance 5. Anemia - Secondary to chronic disorder monitoring H&H and transfuse if patient becomes symptomatic or hemoglobin falls below 7 6. Hypothyroidism - Patient is on levothyroxine home dose continued 7. BPH ?Patient is on Flomax as well as dutasteride; discontinue 8. Gout ?Patient is on allopurinol 9. GERD ?Patient's PPI 10. Class I obesity with BMI of 33.2 ?Weight loss advised 11. Obstructive sleep apnea ?PAP therapy at night DVT: Heparin drip Charges/Coding Visit Charges Inpatient E&M: 34030 Subs Hosp L2
[2021-07-30 11:16] LABS: Bedside Glucose 150 mg/dL (74-106)
[2021-07-30] MEDS: Insulin Lispro 100 UNIT/ML INSULN.PEN SC ×6 (12:23→21:31)
[2021-07-30] MEDS: Cefazolin 2 GM in 0.9% Normal Saline 100 ML IV ×2 (12:23→23:34)
[2021-07-30] MEDS: Acetaminophen 325 MG Tablet 650 MG PO (12:35)
[2021-07-30 12:49] LABS: Partial Thromboplast Time 59.8 Seconds (24.1-36.2)
[2021-07-30 14:03] LABS: Pathologist Review Reviewed
[2021-07-30 14:08] LABS: Pathologist Review Reviewed
[2021-07-30 17:06] LABS: Bedside Glucose 194 mg/dL (74-106)
[2021-07-30] MEDS: Tamsulosin HCl 0.4 MG Capsule PO (17:38)
--- NOTE | 2021-07-30 17:47 | PCM.PN.REN ---
Subjective Subjective Following for MIRANDA on CKD. The patient denies chest pain or nausea. Shortness of breath is better today. Objective Data Objective Data Vital Signs: Vital Signs Temp Pulse Resp BP Pulse Ox 97.8 F 98 22 H 118/54 L 93 07/30/21 14:54 07/30/21 15:16 07/30/21 15:16 07/30/21 14:54 07/30/21 14:54 Oxygen Flow Rate (L/min) 10 Oxygen Delivery Method High Flow Weight: 118.8 kg Body Mass Index (BMI) 33.4 Intake & Output: Intake and Output for Last 24 Hours 07/28/21 07/29/21 07/30/21 23:59 23:59 23:59 Intake Total 1330 / 1330 1746.67 / 1986.67 927.55 / 927.55 Output Total 1200 / 1200 950 / 1400 975 / 975 Balance 130 / 130 796.67 / 586.67 -47.45 / -47.45 Lab / Micro Data Result Diagrams: 07/30/21 04:25 07/30/21 04:25 Labs: Laboratory Results - last 24 hr 07/28/21 08:53: Diff Path Review Reviewed 07/29/21 05:40: Diff Path Review Reviewed 07/29/21 21:11: POC Glucose 160 H 07/30/21 01:44: POC Glucose 96 07/30/21 04:25: Sodium 139, Potassium 3.6, Chloride 108 H, Carbon Dioxide 24.0, Anion Gap 7, BUN 73 H, Creatinine 1.88 H, Estim Creat Clear Calc 34.01, Est GFR (MDRD) Af Amer 44 L, Est GFR (MDRD) Non-Af 37 L, BUN/Creatinine Ratio 38.8 H, Glucose 65 L, Calcium 8.9, Magnesium 1.7 07/30/21 04:25: APTT 54.9 H 07/30/21 04:25: WBC 25.0 H, RBC 3.69 L, Hgb 10.7 L, Hct 33.4 L, MCV 90.5, MCH 29.0, MCHC 32.0, RDW Std Deviation 55.4 H, RDW Coeff of Thang 16.8 H, Plt Count 143 L, MPV 11.0, Neut % (Auto) Not Reportable, Absolute Neuts (auto) 18.0 H, Absolute Lymphs (auto) 1.50, Total Counted 100, Neutrophils % (Manual) 69, Band Neutrophils % 3, Lymphocytes % (Manual) 6 L, Monocytes % (Manual) 7, Eosinophils % (Manual) 2, Metamyelocytes % 2 H, Myelocytes % 10 H, Promyelocytes % 1 H, Diff Path Review September, Platelet Estimate ADEQUATE, RBC Morphology NORM C+C 07/30/21 07:37: POC Glucose 97 07/30/21 11:10: POC Glucose 150 H 07/30/21 12:25: APTT 59.8 H 07/30/21 16:58: POC Glucose 194 H Micro: Microbiology 07/28/21 12:35 Blood Culture (Wb) - Anticubital Left Blood Culture - Preliminary No growth in 48 hours. 07/27/21 09:30 Blood Culture (Wb) - Anticubital Left Blood Culture - Preliminary No growth in 48 hours. 07/25/21 15:20 Blood Culture (Wb) - Pic Blood Culture - Final Staphylococcus aureus 07/24/21 21:55 Sputum, Expectorated/Coughed Gram Stain - Final 07/24/21 21:55 Sputum, Expectorated/Coughed Respiratory Culture - Final Staphylococcus aureus Streptococcus agalactiae (B) 07/24/21 08:55 Urine Catheter - Art Urine Culture - Final Culture exhibits no growth. 07/24/21 05:31 Blood Culture (Wb) - Anticubital Right Blood Culture - Final Staphylococcus aureus 07/24/21 05:20 Blood Culture (Wb) - Left Wrist Blood Culture - Final Staphylococcus aureus 07/24/21 08:10 Mucosa - Nasopharyngeal Respiratory Panel (PCR) - Final 07/24/21 08:20 Urine Catheter - Art Legionella Antigen - Final 07/24/21 08:20 Urine Catheter - Art Streptococcus pneumoniae Antigen (M - Final 07/24/21 04:44 Nasal Secretion SARS-CoV-2 Antigen (Rapid) - Final Physical Exam Narrative Alert and oriented HEENT: Head is normocephalic, atraumatic, pupils equal round reactive to light Cardio: S1, S2, rhythm rate regular Respiratory: diminished posterior breath sounds with faint rales posteriorly. Extremities: no edema of legs or feet Assessment & Plan Assessment/Plan (1) MIRANDA (acute kidney injury): PLAN: -The patient has underlying chronic kidney disease with serum creatinine of 1.5 mg/dL at baseline. -MIRANDA was initially prerenal with fractional excretion of sodium of less than 1% on 07/24/2021. Prerenal MIRANDA has likely evolved to ATN. -Serum creatinine peaked at 3.60 mg/dL on 07/24/2021. -There has been a gradual improvement in renal function with creatinine coming down to 1.73 mg/dL on 07/28/2021. -However, serum creatinine increased again to 1.89 mg/dL yesterday. Serum creatinine is 1.88 mg/dL today which is stable. -The patient's is requiring IV loop diuretic because of pulmonary edema and pleural effusion. -We will likely have to tolerate some elevation in his creatinine between 1.9 to 2.2 mg/dL to keep the patient more euvolemic. -There is no need for kidney replacement therapy at this point. (2) DKA (diabetic ketoacidosis): QUALIFIERS: Diabetes mellitus type: type 2 Diabetes mellitus complication detail: without coma Qualified Code(s): E11.10 - Type 2 diabetes mellitus with ketoacidosis without coma PLAN: -Resolved. Management as per primary service. (3) Acute hypoxemic respiratory failure: PLAN: -He is being treated for possible pneumonia. He is on cefazolin. -Respiratory failure is also likely due to pulmonary edema and pleural effusion. He is being treated with IV furosemide. -We will monitor renal function, electrolyte, and acid-base status while he is being diuresed. -As mentioned above, we will likely have to tolerate some elevation of serum creatinine while the patient is being diuresed. (4) CHF exacerbation: QUALIFIERS: Heart failure type: unspecified Qualified Code(s): I50.9 - Heart failure, unspecified PLAN: -Cardiology following. Possibly planning OBINNA once O2 requirements improve. Currently off Bipap. - The patient has decreased ejection fraction at 25 to 30% from 50% February 2021. -The patient is being diuresed. Continue to restrict fluid to 1.5 L/day or less. -See above.
[2021-07-30 19:20] LABS: Partial Thromboplast Time 69.1 Seconds (24.1-36.2)
[2021-07-30] MEDS: Atorvastatin Calcium 20 MG Tablet PO (21:39)
[2021-07-30 22:11] LABS: Bedside Glucose 209 mg/dL (74-106)
[2021-07-31] VITALS (27 sets, daily range): BP systolic 102–125; BP diastolic 51–102; PULSE 79–98; RESP 12–30; TEMP 36.4–36.7; O2SAT 90–95
[2021-07-31] MEDS: Furosemide 40 MG/4 ML Vial IV ×2 (05:02→17:25)
[2021-07-31] MEDS: Levothyroxine 125 MCG Tablet PO (05:02)
[2021-07-31] MEDS: 0.9% Saline Lock 10 ML Syringe IV ×3 (05:04→17:25)
[2021-07-31 05:35] LABS: Hematocrit 34.1 % (40-54); Hemoglobin 11.1 g/dL (13.0-16.5); Mean Corp Hgb Conc 32.6 g/dL (32-36); Mean Corpuscular Hgb 29.6 pg (27.0-32.0); Mean Corpuscular Volume 90.9 fL (80-94); Mean Platelet Vol. 10.4 fl (6.2-12.0); POSITIVE COUNT YES; POSITIVE MORPHOLOGY YES; Platelet Count 148 K/mm3 (150-450); RBC Distribution Width CV 16.9 % (11.6-14.6); RBC Distribution Width SD 55.6 fl (35.1-43.9); Red Blood Count 3.75 M/mm3 (4.6-6.2); White Blood Count 22.8 K/mm3 (4.4-11.0)
[2021-07-31 05:37] LABS: Differential Indicated MANUAL DIFF
[2021-07-31 05:55] LABS: Anion Gap 7 (5-15); BUN 80 mg/dL (7-18); BUN/Creat Ratio 37.2 RATIO (10-20); Calcium,Total 8.4 mg/dL (8.5-10.1); Chloride 107 mmol/L (98-107); Creatinine, Serum 2.15 mg/dL (0.70-1.30); EST Glomerular Filtration Rate 31 mL/min (>60); Est Glom Filt Rate - Afr Amer 38 mL/min (>60); Estimated Creatinine Clearance 29.74 ml/min; Glucose 167 mg/dL (74-106); Potassium 3.6 mmol/L (3.5-5.1); Sodium Level 136 mmol/L (136-145)
--- NOTE | 2021-07-31 05:55 | RAD_ITS ---
INDICATION: pneumonia EXAMINATION/TECHNIQUE: X-RAY - XR Chest 1 View COMPARISON: Chest radiograph from 07/27/2021 FINDINGS: Support devices: The support devices are in stable position. Similar extent and distribution of bilateral mid to lower lung airspace disease, bibasilar atelectasis, and trace bilateral pleural effusions. No sizable pneumothorax. Heart size is stable. Bones and soft tissues are unchanged. RAD/Chest 1 View (Portable) IMPRESSION: No significant interval change from 07/27/2021 Electronically Signed: Luisito Zamora, at 7:59 EDT ,
[2021-07-31 06:01] LABS: Partial Thromboplast Time 90.7 Seconds (24.1-36.2)
[2021-07-31 06:04] LABS: Neutrophil-Band 7 % (0-5); Neutrophil-Segmented 76 % (47-70); Total Cells Counted 100 (MANUAL DIFF)
[2021-07-31 06:05] LABS: Blast 1 % (0-0); Lymphocyte 6 % (19-41); Metamyelocyte 1 % (0-1); Monocyte 4 % (0-10); Myelocyte 5 % (0-0); Platelet Estimate ADEQUATE (ADEQ); Red Cell Morphology NORM C+C NORMAL (NORM C&C)
[2021-07-31 06:06] LABS: Absolute Neutrophil Count 18.9 X10^3/uL (2.0-7.7); Neutrophil # 18.89 X10^3/uL (2.7-7.7)
[2021-07-31 06:07] LABS: Absolute Lymphocyte Count 1.37 X10^3/uL (0.83-4.51); Lymphocyte # 1.37 X10^3/ul (0.83-4.51)
[2021-07-31 06:31] LABS: Magnesium 1.8 mg/dL (1.6-2.6); Phosphorus 4.1 mg/dL (2.5-4.9)
[2021-07-31] MEDS: Ipratropium/Albuterol Sulfate 3 ML AMPUL.NEB INHALATION ×2 (06:57→11:03)
[2021-07-31] MEDS: Budesonide Respules 0.5 MG/2 ML AMPUL.NEB. INHALATION ×2 (07:12→19:52)
[2021-07-31 08:26] LABS: Bedside Glucose 178 mg/dL (74-106)
--- NOTE | 2021-07-31 08:42 | ECHOTEE_ITS ---
Reason For Study: R/O Endocarditis Medication Cetacaine Topical [place] given X4 orally. Performed a rapid injection of agitated mix of 9 cc saline and 1cc air to assess for atrial septal defect. Patient did not receive any sedation. Left Ventricle Based upon the 2D echocardiographic images obtained, all the LV wall segments are not well visualized, however, there appears to be grossly normal left ventricular size with overall diminished LV systolic function. The estimated ejection fraction is 35 %. Right Ventricle Normal RV size. ICD or pacer leads identified within the right ventricle. The right ventricular wall motion is normal. Atria No doppler evidence for ASD. Bubble contrast study negative for right to left interatrial shunt. The left atrium is moderately enlarged. There is mild sponatenous contrast in the left atrium. No thrombus is detected in the left atrial appendage. Normal right atrium. Prominent eustachian valve. ICD or pacer leads identified within the right atrium. Mitral Valve There is no mitral annular calcification. Mild diffuse mitral valve thickening. Mild (1+) mitral valve insufficiency. Tricuspid Valve Normal tricuspid valve. Mild tricuspid valve insufficiency. Aortic Valve Trisinus/trileaflet aortic valve. Mild diffuse aortic valve thickening. Mild diffuse aortic valve calcification. Pulmonic Valve The pulmonic valve is not well visualized. Vessels Mild atherosclerosis of the aortic arch. Pericardium No pericardial effusion. ECHO/Echo Transesophageal (OBINNA) Interpretation Summary Based upon the 2D echocardiographic images obtained, all the LV wall segments a re not well visualized, however, there appears to be grossly normal left ventricular size w ith overall diminished LV systolic function. The estimated ejection fraction is 35 %. The left atrium is moderately enlarged. There is mild sponatenous contrast in the left atrium. No thrombus is detected in the left atrial appendage. Prominent eustachian valve. Mild diffuse mitral valve thickening. Mild (1+) mitral valve insufficiency. Mild tricuspid valve insufficiency. Mild diffuse aortic valve thickening. Mild diffuse aortic valve calcification. Bubble contrast study negative for right to left interatrial shunt. Mild atherosclerosis of the aortic arch. ICD or pacer leads identified within the right atrium ICD or pacer leads identified within the right ventricle. Based upon the 2D echocardiographic images obtained there appears to be no obvi ous 2D echocardiographic findings compatible with findings considered compatible with infectious endocarditis. Ordering Physician: Zac Parker Referring Physician: MD Liliya Alexandro Performed By: Jolie Madison RDCS
--- NOTE | 2021-07-31 08:45 | PCM.PN.CARD ---
Subjective Subjective The patient appears to be a wake and alert. He denies ongoing chest discomfort. He does not believe he is coughing as much as he did previously. Objective Data Vital Signs: Vital Signs Temp Pulse Resp BP Pulse Ox 98.1 F 84 26 H 111/54 L 94 07/31/21 07:00 07/31/21 07:00 07/31/21 07:00 07/31/21 07:00 07/31/21 07:00 Oxygen Flow Rate (L/min) 10 Oxygen Delivery Method Nasal Cannula Weight: 260 lb 9.382 oz Body Mass Index (BMI) 33.4 Intake & Output: Intake and Output for Last 24 Hours 07/29/21 07/30/21 07/31/21 23:59 23:59 23:59 Intake Total 1746.67 / 1986.67 1336.05 / 1336.05 381.5 / 381.5 Output Total 950 / 1400 1025 / 1025 1200 / 1200 Balance 796.67 / 586.67 311.05 / 311.05 -818.5 / -818.5 Lab / Micro Data Result Diagrams: 07/31/21 05:20 07/31/21 05:20 Labs: Laboratory Results - last 24 hr 07/28/21 08:53: Diff Path Review Reviewed 07/29/21 05:40: Diff Path Review Reviewed 07/30/21 11:10: POC Glucose 150 H 07/30/21 12:25: APTT 59.8 H 07/30/21 16:58: POC Glucose 194 H 07/30/21 18:30: APTT 69.1 H 07/30/21 21:28: POC Glucose 209 H 07/31/21 05:20: WBC 22.8 H, RBC 3.75 L, Hgb 11.1 L, Hct 34.1 L, MCV 90.9, MCH 29.6, MCHC 32.6, RDW Std Deviation 55.6 H, RDW Coeff of Thang 16.9 H, Plt Count 148 L, MPV 10.4, Neut % (Auto) Not Reportable, Absolute Neuts (auto) 18.9 H, Absolute Lymphs (auto) 1.37, Total Counted 100, Neutrophils % (Manual) 76 H, Band Neutrophils % 7 H, Lymphocytes % (Manual) 6 L, Monocytes % (Manual) 4, Metamyelocytes % 1, Myelocytes % 5 H, Blast Cells % 1 H*, Diff Path Review May , Platelet Estimate ADEQUATE, RBC Morphology NORM C+C 07/31/21 05:20: Sodium 136, Potassium 3.6, Chloride 107, Carbon Dioxide 22.0, Anion Gap 7, BUN 80 H, Creatinine 2.15 H, Estim Creat Clear Calc 29.74, Est GFR (MDRD) Af Amer 38 L, Est GFR (MDRD) Non-Af 31 L, BUN/Creatinine Ratio 37.2 H, Glucose 167 H, Calcium 8.4 L 07/31/21 05:20: APTT 90.7 H* 07/31/21 05:20: Phosphorus 4.1, Magnesium 1.8 07/31/21 08:20: POC Glucose 178 H Micro: Microbiology 07/28/21 12:35 Blood Culture (Wb) - Anticubital Left Blood Culture - Preliminary No growth in 48 hours. Cardiology Labs/Tests 07/30/21 12:25: APTT 59.8 H 07/30/21 18:30: APTT 69.1 H 07/31/21 05:20: WBC 22.8 H, RBC 3.75 L, Hgb 11.1 L, Hct 34.1 L, MCV 90.9, MCH 29.6, MCHC 32.6, Plt Count 148 L, MPV 10.4, Neut % (Auto) Not Reportable, Absolute Neuts (auto) 18.9 H, Total Counted 100, Neutrophils % (Manual) 76 H, Band Neutrophils % 7 H, Lymphocytes % (Manual) 6 L, Monocytes % (Manual) 4, Metamyelocytes % 1, Myelocytes % 5 H, Blast Cells % 1 H* 07/31/21 05:20: Sodium 136, Potassium 3.6, Chloride 107, Carbon Dioxide 22.0, Anion Gap 7, BUN 80 H, Creatinine 2.15 H, Est GFR (MDRD) Af Amer 38 L, Est GFR (MDRD) Non-Af 31 L, BUN/Creatinine Ratio 37.2 H, Glucose 167 H, Calcium 8.4 L 07/31/21 05:20: APTT 90.7 H* 07/31/21 05:20: Phosphorus 4.1, Magnesium 1.8 Rhythm: Sinus rhythm Radiography Diagnostic Testing: Radiology Impression Chest X-Ray 07/31/21 05:55 IMPRESSION: No significant interval change from 07/27/2021 Electronically Signed: Luisito Zamora, at 7:59 EDT , Physical Exam Const alert, oriented x3, no apparent distress and average body habitus Constitutional Narrative: on Bipap Orientation / Consciousness: awake HEENT normocephalic, head/scalp atraumatic, hearing grossly normal bilaterally and moist oral mucous membranes Eyes PERRL, EOMs intact bilaterally and conjunctivae normal Neck full ROM, supple and no JVD Resp Resp Narrative: Pulmonary findings may be less prominent than yesterday Auscultation: rhonchi throughout (Scattered) and wheezes scattered wheezes and throughout Cardio regular rate and regular rhythm; Negative for no murmurs, no rub or no gallops Cardio Narrative: distant Rhythm: abnormal rhythm irregularly irregular Heart Sounds: S1 normal and S2 normal GI normal to inspection, nondistended, normoactive bowel sounds, soft to palpation and non-tender Extremity normal to inspection, no clubbing, cyanosis or edema and no pedal edema Skin no rashes or lesions noted Neuro oriented x3 and CN's II-XII intact bilaterally Psych mental status grossly normal Assessment & Plan Assessment/Plan (1) Atherosclerotic heart disease of [place] coronary artery without angina pectoris: QUALIFIERS: [place] vs. transplanted heart: [place] heart Qualified Code(s): I25.10 - Atherosclerotic heart disease of [place] coronary artery without angina pectoris PLAN: The patient has a history of underlying CAD. 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 At the present time he will continue to be monitored. He will continue medical therapy as tolerated which ideally would include agents such as aspirin, nitrates if needed and tolerated, beta-blockers if tolerated by hemodynamics, lipid-lowering agents unless otherwise contraindicated, and additional antiplatelet/anticoagulant agents as deemed appropriate. (2) NSTEMI (non-ST elevated myocardial infarction): PLAN: The patient does have abnormal cardiac enzymes. The enzymes may be secondary to his acute noncardiovascular conditions and thus may represent a type II non-ST segment elevation MD. However, the patient does have underlying CAD and it is noted his LV systolic function/LVEF was reported decreased compared to prior studies. The patient will continue to be monitored and will continue medical therapy as tolerated. Over time, depending upon the patient's noncardiovascular comorbidities including his renal insufficiency, he may need to be considered for repeat evaluation in the cardiac catheterization laboratory to assess for progression of CAD or graft vessel disease that requires additional revascularization therapy. (3) Cardiomyopathy: PLAN: The patient's LV systolic function/LVEF was reported as decreased compared to prior studies. Again it is unclear whether this is related to his noncardiovascular events versus progression of his [place] cardiovascular disease. At the moment he will continue to be monitored. He should continue medical therapy as his comorbidities tolerate. He has been placed on scheduled IV diuretic therapy. He has had some increased urinary output. His creatinine level has begun to increase. His diuretic dose will be adjusted. His cardiopulmonary status and renal function will need to be followed. (4) Paroxysmal atrial fibrillation: PLAN: The patient does have a history of paroxysmal atrial fibrillation. He should continue rate limiting therapy as deemed appropriate. He is currently on IV heparin. Depending upon his clinical course and comorbidities and the need for additional procedures consideration can be given to eventually altering this to an oral anticoagulant but he may be able to tolerate. (5) History of permanent cardiac pacemaker placement: PLAN: The patient does have a permanent pacemaker. It has been followed as an outpatient and has been reported is functioning appropriately in the past. He can be reassessed as needed. (6) Hyperlipidemia: QUALIFIERS: Hyperlipidemia type: unspecified Qualified Code(s): E78.5 - Hyperlipidemia, unspecified PLAN: The patient has a report of statin related myalgias. He should continue lipid-lowering therapy as tolerated. (7) DKA (diabetic ketoacidosis): QUALIFIERS: Diabetes mellitus type: type 2 Diabetes mellitus complication detail: without coma Qualified Code(s): E11.10 - Type 2 diabetes mellitus with ketoacidosis without coma PLAN: The patient was reported as having DKA. It appears his glucose levels are coming under better control. He will continue to be followed by internal medicine. (8) MIRANDA (acute kidney injury): PLAN: The patient had acute on chronic renal insufficiency. His creatinine level has been fluctuating. This does need to be monitored and taken into consideration with respect any future IV contrast related studies. (9) Acute on chronic respiratory failure: QUALIFIERS: Respiratory failure complication: hypoxia Qualified Code(s): J96.21 - Acute and chronic respiratory failure with hypoxia PLAN: The patient continues evaluation care per internal medicine and pulmonology/critical care medicine. He is being treated for MSSA related pulmonary conditions. His chest x-ray compared to a previous chest x-ray appears to similar. His O2 saturation requirements still range between 8 to 10 L of nasal cannula. There is concern of both his cardiopulmonary disease process combining to affect his respiratory status. He is continuing diuretic therapy to hopefully assist with any obvious volume related issues related to his pulmonary status. (10) Sepsis: PLAN: The patient has been reported as having bacteremia with MSSA. Per Dr. Song's note it appears this is thought to be related to his underlying pulmonary condition. He is continuing antibiotic therapy at this time. He was evaluated by infectious disease. He was recommended for OBINNA out of completeness based upon his cardiac condition and comorbidities and bacteremia. The patient has been given additional time to hopefully help improve his overall cardiopulmonary status. He does not appear to be coughing as much or on examination to be very as rhonchorous or wheezing as much. His O2 status is as noted. His chest x-ray appears similar to previous chest x-rays. A OBINNA was discussed with him. He was agreeable to proceeding in this manner. Thus, an attempt will be made to proceed with OBINNA hopefully with local anesthetic therapy and no to minimal sedation therapy to minimize the risk of his O2 sat is declining in the patient requiring additional measures to support his O2 status, etc. (11) Hypotension: PLAN: The patient's blood pressure remains somewhat low. His medications will have to be taken into consideration with respect to how it affects his blood pressure. Addt'l Comments This note was generated using a voice recognition system and there may be incorrect words, spelling or punctuation that were not noted when reviewing the office note prior to saving.
--- NOTE | 2021-07-31 08:56 | PN.CC_ITS ---
Assessment & Plan Assessment/Plan (1) Sepsis: PLAN: RECOMMENDATIONS: 1. Wean supplemental oxygen as tolerated to maintain saturations at or above 90%. 2. Must use PAP therapy per home regimen with naps and nightly. 3. Careful use of diuretics. 4. Await OBINNA for evaluation of MSSA endocarditis 5. Consider transition to 10 a inhibitor or Lovenox if okay with cardiology 6. Continue basal and sliding scale insulin coverage. 7. Continue bronchopulmonary hygiene with PEP and incentive spirometry. IMPRESSIONS: 1. Acute on chronic hypoxemic respiratory failure secondary to MSSA pneumonia The patient presented to the hospital with worsening shortness of breath and chest pain. The patient has a known history of a severe mixed ventilatory defect with moderate reduction in diffusing capacity and chest imaging which rev ealed evidence of an evolving interstitial lung process. Prior 6-minute walk test revealed the need for 2 L/min of oxygen at rest and 4 L/min with exertion. The patient's medical history is also significant for coronary disease status post CABG. Chest imaging demonstrated background interstitial changes with what appeared to be some basilar predominant opacities. Patient likely has a combination of both embolic pneumonia and CHF. Patient reinitiated on diuretics, but intermittent doses have been held secondary to blood pressure. Chest x-ray does show improvement in left pleural effusion since increased diuretics. We will have to watch closely as patient will have a narrow therapeutic window from a volume status given his concomitant septic state. 2. Septic shock Resolved. Patient growing MSSA from multiple blood cultures. Clinical suspicion for pulmonary etiology. Patient has responded well. Patient's blood pressure remained stable. Patient has had increased FiO2 requirements, but this appears to be secondary to a lack of diuretic. Blood pressure has done okay. 3. Chest pain/NSTEMI Initially felt to be secondary to demand ischemia in the setting of numbers 1 and 2. However, the patient's surface echocardiogram demonstrated a significant reduction in ejection fraction along with severe LV systolic dysfun ction, which was not present on prior echo. Cardiology is currently following to assist with medical management. Continue heparin infusion for now. Unclear if this is secondary to problem #2 versus coronary artery disease. There is discussion about a OBINNA when respiratory status is improved. 4. Diabetic ketoacidosis Resolved. Continue basal and sliding scale insulin coverage. 5. Acute on chronic kidney disease Stable. Most likely prerenal in etiology. Anticipate further improvement in renal function with volume expansion and stabilization of hemodynamics. Continue to monitor urine output. No current indication for renal replacement therapy. Nephrology is following. 6. Advanced age/paroxysmal atrial fibrillation/anemia/hypothyroidism/sick sinus syndrome/sleep apnea Complicates care, management, recovery and prognosis. Continue home medications as indicated. The patient can be continued on his home BiPAP with a pressure support of 12/7 centimeters of water. Subjective Subjective Patient believes he is subjectively improved compared to previous. Patient is reporting improved shortness of breath, but is still requiring significant amounts of supplemental oxygen. Patient did not wear BiPAP for most of the evening, but did have it on during my evaluation and oxygenation was improved. Patient continues to report a cough that is productive, but states it is getting more clear. Objective Data Objective Data Vital Signs: Vital Signs Temp Pulse Resp BP Pulse Ox 36.7 C 84 26 H 111/54 L 94 07/31/21 07:00 07/31/21 07:00 07/31/21 07:00 07/31/21 07:00 07/31/21 07:00 Oxygen Flow Rate (L/min) 10 Oxygen Delivery Method Nasal Cannula Weight: 118.2 kg Body Mass Index (BMI) 33.4 Intake & Output: Intake and Output for Last 24 Hours 07/29/21 07/30/21 07/31/21 23:59 23:59 23:59 Intake Total 1746.67 / 1986.67 1336.05 / 1336.05 381.5 / 381.5 Output Total 950 / 1400 1025 / 1025 1200 / 1200 Balance 796.67 / 586.67 311.05 / 311.05 -818.5 / -818.5 Lab / Micro Data Result Diagrams: 07/31/21 05:20 07/31/21 05:20 Labs: Laboratory Results - last 24 hr 07/28/21 08:53: Diff Path Review Reviewed 07/29/21 05:40: Diff Path Review Reviewed 07/30/21 11:10: POC Glucose 150 H 07/30/21 12:25: APTT 59.8 H 07/30/21 16:58: POC Glucose 194 H 07/30/21 18:30: APTT 69.1 H 07/30/21 21:28: POC Glucose 209 H 07/31/21 05:20: WBC 22.8 H, RBC 3.75 L, Hgb 11.1 L, Hct 34.1 L, MCV 90.9, MCH 29.6, MCHC 32.6, RDW Std Deviation 55.6 H, RDW Coeff of Thang 16.9 H, Plt Count 148 L, MPV 10.4, Neut % (Auto) Not Reportable, Absolute Neuts (auto) 18.9 H, Absolute Lymphs (auto) 1.37, Total Counted 100, Neutrophils % (Manual) 76 H, Band Neutrophils % 7 H, Lymphocytes % (Manual) 6 L, Monocytes % (Manual) 4, Metamyelocytes % 1, Myelocytes % 5 H, Blast Cells % 1 H*, Diff Path Review September, Platelet Estimate ADEQUATE, RBC Morphology NORM C+C 07/31/21 05:20: Sodium 136, Potassium 3.6, Chloride 107, Carbon Dioxide 22.0, Anion Gap 7, BUN 80 H, Creatinine 2.15 H, Estim Creat Clear Calc 29.74, Est GFR (MDRD) Af Amer 38 L, Est GFR (MDRD) Non-Af 31 L, BUN/Creatinine Ratio 37.2 H, Glucose 167 H, Calcium 8.4 L 07/31/21 05:20: APTT 90.7 H* 07/31/21 05:20: Phosphorus 4.1, Magnesium 1.8 07/31/21 08:20: POC Glucose 178 H Micro: Microbiology 07/28/21 12:35 Blood Culture (Wb) - Anticubital Left Blood Culture - Preliminary No growth in 48 hours. 07/27/21 09:30 Blood Culture (Wb) - Anticubital Left Blood Culture - Preliminary No growth in 48 hours. 07/25/21 15:20 Blood Culture (Wb) - Pic Blood Culture - Final Staphylococcus aureus 07/24/21 21:55 Sputum, Expectorated/Coughed Gram Stain - Final 07/24/21 21:55 Sputum, Expectorated/Coughed Respiratory Culture - Final Staphylococcus aureus Streptococcus agalactiae (B) 07/24/21 08:55 Urine Catheter - Art Urine Culture - Final Culture exhibits no growth. 07/24/21 05:31 Blood Culture (Wb) - Anticubital Right Blood Culture - Final Staphylococcus aureus 07/24/21 05:20 Blood Culture (Wb) - Left Wrist Blood Culture - Final Staphylococcus aureus 07/24/21 08:10 Mucosa - Nasopharyngeal Respiratory Panel (PCR) - Final 07/24/21 08:20 Urine Catheter - Art Legionella Antigen - Final 07/24/21 08:20 Urine Catheter - Art Streptococcus pneumoniae Antigen (M - Final 07/24/21 04:44 Nasal Secretion SARS-CoV-2 Antigen (Rapid) - Final Radiography Diagnostic Testing: Radiology Impression Chest X-Ray 07/31/21 05:55 IMPRESSION: No significant interval change from 07/27/2021 Electronically Signed: Luisito Zamora, at 7:59 EDT , Physical Exam Const alert, oriented x3, no apparent distress and average body habitus Constitutional Narrative: on Bipap Orientation / Consciousness: awake HEENT normocephalic, head/scalp atraumatic, hearing grossly normal bilaterally and moist oral mucous membranes Eyes PERRL, EOMs intact bilaterally and conjunctivae normal Neck full ROM, supple and no JVD Resp Resp Narrative: Pulmonary findings may be somewhat less prominent than yesterday Auscultation: rhonchi throughout (Scattered) and wheezes scattered wheezes and throughout Cardio regular rate and regular rhythm; Negative for no murmurs, no rub or no gallops Cardio Narrative: distant Rhythm: abnormal rhythm irregularly irregular Heart Sounds: S1 normal and S2 normal GI normal to inspection, nondistended, normoactive bowel sounds, soft to palpation and non-tender Extremity normal to inspection, no clubbing, cyanosis or edema and no pedal edema Skin no rashes or lesions noted Neuro oriented x3 and CN's II-XII intact bilaterally Psych mental status grossly normal Charges/Coding Visit Charges Inpatient E&M: 49221 Subs Hosp L3
[2021-07-31 13:04] LABS: Pathologist Review Reviewed
[2021-07-31 14:41] LABS: Partial Thromboplast Time 72.6 Seconds (24.1-36.2)
[2021-07-31] MEDS: Aspirin E.C. 81 MG Tablet PO (15:28)
[2021-07-31] MEDS: Menthol/Lanolin/Calamine/Znox 113 GM Tube 1 APPLIC TOPICAL ×2 (15:29→21:45)
[2021-07-31] MEDS: guaiFENesin 1,200 MG Tablet 1200 MG PO ×2 (15:29→21:46)
[2021-07-31] MEDS: Allopurinol 300 MG Tablet PO (15:30)
[2021-07-31] MEDS: Finasteride 5 MG Tablet PO (15:30)
[2021-07-31] MEDS: Pantoprazole Sodium 40 MG Tablet PO (15:30)
[2021-07-31] MEDS: Cefazolin 2 GM in 0.9% Normal Saline 100 ML IV ×2 (15:37→22:38)
--- NOTE | 2021-07-31 15:55 | PN.HOSP_ITS ---
Subjective Subjective Remains the same, still requiring around 10 L nasal cannula with significantly rhonchorous breath sounds. Plan for OBINNA this afternoon. Objective Data Objective Data Vital Signs: Vital Signs Temp Pulse Resp BP Pulse Ox 97.9 F 84 22 H 107/81 H 94 07/31/21 14:00 07/31/21 14:00 07/31/21 14:00 07/31/21 14:00 07/31/21 14:54 Oxygen Flow Rate (L/min) 10 Oxygen Delivery Method Nasal Cannula Weight: 260 lb 9.382 oz Body Mass Index (BMI) 33.4 Intake & Output: Intake and Output for Last 24 Hours 07/30/21 07/31/21 08/01/21 03:59 03:59 03:59 Intake Total 1986.67 / 1986.67 1096.05 / 1096.05 350.0 / 350.0 Output Total 1400 / 1400 575 / 575 1600 / 1600 Balance 586.67 / 586.67 521.05 / 521.05 -1250.0 / -1250.0 Lab / Micro Data Result Diagrams: 07/31/21 05:20 07/31/21 05:20 Labs: Laboratory Results - last 24 hr 07/30/21 04:25: Diff Path Review Reviewed 07/30/21 16:58: POC Glucose 194 H 07/30/21 18:30: APTT 69.1 H 07/30/21 21:28: POC Glucose 209 H 07/31/21 05:20: WBC 22.8 H, RBC 3.75 L, Hgb 11.1 L, Hct 34.1 L, MCV 90.9, MCH 29.6, MCHC 32.6, RDW Std Deviation 55.6 H, RDW Coeff of Thang 16.9 H, Plt Count 148 L, MPV 10.4, Neut % (Auto) Not Reportable, Absolute Neuts (auto) 18.9 H, Absolute Lymphs (auto) 1.37, Total Counted 100, Neutrophils % (Manual) 76 H, Band Neutrophils % 7 H, Lymphocytes % (Manual) 6 L, Monocytes % (Manual) 4, Metamyelocytes % 1, Myelocytes % 5 H, Blast Cells % 1 H*, Diff Path Review May , Platelet Estimate ADEQUATE, RBC Morphology NORM C+C 07/31/21 05:20: Sodium 136, Potassium 3.6, Chloride 107, Carbon Dioxide 22.0, Anion Gap 7, BUN 80 H, Creatinine 2.15 H, Estim Creat Clear Calc 29.74, Est GFR (MDRD) Af Amer 38 L, Est GFR (MDRD) Non-Af 31 L, BUN/Creatinine Ratio 37.2 H, Glucose 167 H, Calcium 8.4 L 07/31/21 05:20: APTT 90.7 H* 07/31/21 05:20: Phosphorus 4.1, Magnesium 1.8 07/31/21 08:20: POC Glucose 178 H 07/31/21 13:50: APTT 72.6 H Micro: Microbiology 07/28/21 12:35 Blood Culture (Wb) - Anticubital Left Blood Culture - Preliminary No growth in 48 hours. 07/27/21 09:30 Blood Culture (Wb) - Anticubital Left Blood Culture - Preliminary No growth in 48 hours. 07/25/21 15:20 Blood Culture (Wb) - Pic Blood Culture - Final Staphylococcus aureus 07/24/21 21:55 Sputum, Expectorated/Coughed Gram Stain - Final 07/24/21 21:55 Sputum, Expectorated/Coughed Respiratory Culture - Final Staphylococcus aureus Streptococcus agalactiae (B) 07/24/21 08:55 Urine Catheter - Art Urine Culture - Final Culture exhibits no growth. 07/24/21 05:31 Blood Culture (Wb) - Anticubital Right Blood Culture - Final Staphylococcus aureus 07/24/21 05:20 Blood Culture (Wb) - Left Wrist Blood Culture - Final Staphylococcus aureus 07/24/21 08:10 Mucosa - Nasopharyngeal Respiratory Panel (PCR) - Final 07/24/21 08:20 Urine Catheter - Art Legionella Antigen - Final 07/24/21 08:20 Urine Catheter - Art Streptococcus pneumoniae Antigen (M - Final 07/24/21 04:44 Nasal Secretion SARS-CoV-2 Antigen (Rapid) - Final Radiography Diagnostic Testing: Radiology Impression Chest X-Ray 07/31/21 05:55 IMPRESSION: No significant interval change from 07/27/2021 Electronically Signed: Luisito Zamora, at 7:59 EDT , Transesophageal Echocardiogram 07/31/21 08:42 Interpretation Summary Based upon the 2D echocardiographic images obtained, all the LV wall segments are not well visualized, however, there appears to be grossly normal left ventricular size with overall diminished LV systolic function. The estimated ejection fraction is 35 %. The left atrium is moderately enlarged. There is mild sponatenous contrast in the left atrium. No thrombus is detected in the left atrial appendage. Prominent eustachian valve. Mild diffuse mitral valve thickening. Mild (1+) mitral valve insufficiency. Mild tricuspid valve insufficiency. Mild diffuse aortic valve thickening. Mild diffuse aortic valve calcification. Bubble contrast study negative for right to left interatrial shunt. Mild atherosclerosis of the aortic arch. ICD or pacer leads identified within the right atrium ICD or pacer leads identified within the right ventricle. Based upon the 2D echocardiographic images obtained there appears to be no obvious 2D echocardiographic findings compatible with findings considered compatible with infectious endocarditis. Ordering Physician: Zac Parker Referring Physician: MD Liliya Alexandro Performed By: Jolie Madison, [facility] Physical Exam Narrative Const alert, oriented x3 and no apparent distress General Appearance: cooperative HEENT normocephalic and moist oral mucous membranes Eyes PERRL, EOMs intact bilaterally and conjunctivae normal Neck supple and no JVD Resp normal respiratory effort, no retractions and no use of accessory muscles Auscultation: Rhonchi with diminished lung sounds; Negative for crackles, rales, wheezes Cardio regular rate, irregular rhythm, S1 normal heart sound, S2 normal heart sound and no murmurs GI soft to palpation, non-tender and non-distended; Negative for hepatosplenomegaly Extremity General Extremity: edema; Negative for clubbing or cyanosis Skin no rashes or lesions noted Neuro no focal motor deficits and no sensory deficits noted Psych affect normal Appearance: appropriate Assessment & Plan Assessment/Plan (1) DKA (diabetic ketoacidosis): QUALIFIERS: Diabetes mellitus type: type 2 Diabetes mellitus complication detail: without coma Qualified Code(s): E11.10 - Type 2 diabetes mellitus with ketoacidosis without coma (2) Community acquired pneumonia: QUALIFIERS: Laterality: unspecified laterality Qualified Code(s): J18.9 - Pneumonia, unspecified organism (3) MIRANDA (acute kidney injury): (4) Acute hypoxemic respiratory failure: PLAN: 1. Acute on chronic hypoxic respiratory failure and septic shock due to pneumonia and bacteremia ?Multifactorial including COPD with acute exacerbation, pulmonary fibrosis from recent COVID 19 pneumonia in January 2021. Patient was placed on noninvasive ventilation BiPAP admitted to the intensive care unit consultation placed to pulmonary medicine. Patient was placed on empiric antibiotic therapy pending culture results obtained on admission. Patient remains significantly at risk for possible intubation. Consult placed to pulmonary medicine Case discussed with Dr. Aj ?Present on admission patient was managed with IV fluid resuscitation as well as broad-spectrum antibiotic therapy. Cultures obtained on admission so far positive for gram-positive cocci final identification and sensitivities pending ?07/25/2021; patient has been weaned off BiPAP however remains on high flow oxygen -07/26/2021; Patient blood cultures positive for Staph aureus, repeat cultures obtained and if positive patient may need to undergo further evaluation with OBINNA. Initial TTE obtained did not mention any evidence of endocarditis. Consult has subsequently been placed to ID. Patient remains in ICU and is currently on Levophed ?07/27/2021: We will repeat blood cultures today, blood cultures on the are positive for may not need to do a OBINNA if cleared, he is off Levophed and is down to 3 to 4 L nasal cannula maintain his oxygen saturations ?07/28/2021: We will hold off on a OBINNA today unless we can get his oxygen requirements down from his 10 L that he is currently at, antibiotics narrowed to Ancef ?07/29/2021: His respiratory failure is likely now due to volume overload from sepsis protocol, he is 3 L positive. We have increased his IV Lasix to 3 times daily dosing per cardiology will have a low threshold for transferring back to the ICU given his borderline blood pressures in the setting of his septic shock. ?07/30/2021: Continue with IV Lasix, and inhalers. From on a fluid restriction yesterday he is now almost 4 L positive will see if we cannot take off any further IV fluids medications to help with his volume status. Blood cultures are normal and cleared fairly quickly. Currently on Ancef, sputum culture with MSSA and strep, blood cultures with MSSA ?07/31/2021: OBINNA was unremarkable for vegetations, cardiology recommends possible bronchoscopy. Hopefully we can also discontinue his heparin drip if okay with cardiology in order to minimize fluid and take 2. Diabetic ketoacidosis ?Managed with IV fluids, correction of electrolyte as well as insulin with every 4 BMPs ordered and subsequent adjustment made to therapy ?07/25/2021; anion gap down to 15. Patient insulin drip discontinued started on scheduled long-acting insulin with sliding scale coverage 07/26/2021; patient DKA resolved switch to long-acting insulin with subsequent adjustment made in view of significant hypoglycemia ?We will continue to monitor make adjustments to his insulin 3. Elevated troponin acute non-STEMI/acute on chronic systolic CHF?CAD/paroxysmal A. fib/HLD/sick sinus syndrome status post pacemaker ?Patient did present with chest pain but had no EKG changes consistent with acute ischemia. Admitted to intensive care unit serial cardiac enzymes ordered in addition to a 2D echo and consultation placed to cardiology. 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 Echo obtained demonstrated EF of 25 to 30% with severe LV systolic dysfunction with global LV hypokinesis ?Echo obtained on 03/10/2021 demonstrated EF of 50% ?07/26/2019: repeat echo obtained did reveal EF of 20 to 30% consistent with heart failure with reduced ejection fraction ?07/28/2021: Shortness of breath overnight with increased markings in his chest x-ray, will initiate him on Lasix ?07/30/2021: Continue to recommend BiPAP whenever he is sleeping and aggressive diuresis 4. Acute kidney injury ?Superimposed on chronic kidney disease stage IIIa. Patient baseline creatinine 1.41.5 creatinine on admission was 3.34. Currently on IV fluid with serial BMPs ordered ?07/25/2021 no improvement in kidney function -07/26/2021; creatinine down to 2.84, peaked at 3.6 ?07/29/2021: Creatinine down to 1.89 ?07/30/2021: Creatinine is 1.88 today will monitor and appreciate nephrology's assistance ?07/31/2021: Creatinine is elevated over 2 again today 5. Anemia - Secondary to chronic disorder monitoring H&H and transfuse if patient becomes symptomatic or hemoglobin falls below 7 6. Hypothyroidism - Patient is on levothyroxine home dose continued 7. BPH ?Patient is on Flomax as well as dutasteride; discontinue 8. Gout ?Patient is on allopurinol 9. GERD ?Patient's PPI 10. Class I obesity with BMI of 33.2 ?Weight loss advised 11. Obstructive sleep apnea ?PAP therapy at night DVT: Heparin drip Charges/Coding Visit Charges Inpatient E&M: 20859 Subs Hosp L2
[2021-07-31 16:40] LABS: Bedside Glucose 158 mg/dL (74-106)
[2021-07-31] MEDS: Insulin Lispro 100 UNIT/ML INSULN.PEN SC ×4 (17:22→21:52)
[2021-07-31] MEDS: Tamsulosin HCl 0.4 MG Capsule PO (17:24)
--- NOTE | 2021-07-31 18:30 | PN.RENAL_ITS ---
Subjective Subjective Following for MIRANDA on CKD. The patient is currently on BiPAP. Cannot do ROS. Objective Data Objective Data Vital Signs: Vital Signs Temp Pulse Resp BP Pulse Ox 97.6 F L 90 18 105/52 L 94 07/31/21 16:00 07/31/21 16:00 07/31/21 16:00 07/31/21 16:00 07/31/21 16:00 Oxygen Flow Rate (L/min) 10 Oxygen Delivery Method High Flow Weight: 118.2 kg Body Mass Index (BMI) 33.4 Intake & Output: Intake and Output for Last 24 Hours 07/29/21 07/30/21 07/31/21 23:59 23:59 23:59 Intake Total 1746.67 / 1986.67 1336.05 / 1336.05 810.0 / 810.0 Output Total 950 / 1400 1025 / 1025 1950 / 1950 Balance 796.67 / 586.67 311.05 / 311.05 -1140.0 / -1140.0 Lab / Micro Data Result Diagrams: 07/31/21 05:20 07/31/21 05:20 Labs: Laboratory Results - last 24 hr 07/30/21 04:25: Diff Path Review Reviewed 07/30/21 18:30: APTT 69.1 H 07/30/21 21:28: POC Glucose 209 H 07/31/21 05:20: WBC 22.8 H, RBC 3.75 L, Hgb 11.1 L, Hct 34.1 L, MCV 90.9, MCH 29.6, MCHC 32.6, RDW Std Deviation 55.6 H, RDW Coeff of Thang 16.9 H, Plt Count 148 L, MPV 10.4, Neut % (Auto) Not Reportable, Absolute Neuts (auto) 18.9 H, Absolute Lymphs (auto) 1.37, Total Counted 100, Neutrophils % (Manual) 76 H, Band Neutrophils % 7 H, Lymphocytes % (Manual) 6 L, Monocytes % (Manual) 4, Metamyelocytes % 1, Myelocytes % 5 H, Blast Cells % 1 H*, Diff Path Review May , Platelet Estimate ADEQUATE, RBC Morphology NORM C+C 07/31/21 05:20: Sodium 136, Potassium 3.6, Chloride 107, Carbon Dioxide 22.0, Anion Gap 7, BUN 80 H, Creatinine 2.15 H, Estim Creat Clear Calc 29.74, Est GFR (MDRD) Af Amer 38 L, Est GFR (MDRD) Non-Af 31 L, BUN/Creatinine Ratio 37.2 H, Glucose 167 H, Calcium 8.4 L 07/31/21 05:20: APTT 90.7 H* 07/31/21 05:20: Phosphorus 4.1, Magnesium 1.8 07/31/21 08:20: POC Glucose 178 H 07/31/21 13:50: APTT 72.6 H 07/31/21 16:25: POC Glucose 158 H Micro: Microbiology 07/28/21 12:35 Blood Culture (Wb) - Anticubital Left Blood Culture - Preliminary No growth in 48 hours. 07/27/21 09:30 Blood Culture (Wb) - Anticubital Left Blood Culture - Preliminary No growth in 48 hours. 07/25/21 15:20 Blood Culture (Wb) - Pic Blood Culture - Final Staphylococcus aureus 07/24/21 21:55 Sputum, Expectorated/Coughed Gram Stain - Final 07/24/21 21:55 Sputum, Expectorated/Coughed Respiratory Culture - Final Staphylococcus aureus Streptococcus agalactiae (B) 07/24/21 08:55 Urine Catheter - Art Urine Culture - Final Culture exhibits no growth. 07/24/21 05:31 Blood Culture (Wb) - Anticubital Right Blood Culture - Final Staphylococcus aureus 07/24/21 05:20 Blood Culture (Wb) - Left Wrist Blood Culture - Final Staphylococcus aureus 07/24/21 08:10 Mucosa - Nasopharyngeal Respiratory Panel (PCR) - Final 07/24/21 08:20 Urine Catheter - Art Legionella Antigen - Final 07/24/21 08:20 Urine Catheter - Art Streptococcus pneumoniae Antigen (M - Final 07/24/21 04:44 Nasal Secretion SARS-CoV-2 Antigen (Rapid) - Final Radiography Diagnostic Testing: Radiology Impression Chest X-Ray 07/31/21 05:55 IMPRESSION: No significant interval change from 07/27/2021 Electronically Signed: Luisito Zamora, at 7:59 EDT , Transesophageal Echocardiogram 07/31/21 08:42 Interpretation Summary Based upon the 2D echocardiographic images obtained, all the LV wall segments are not well visualized, however, there appears to be grossly normal left ventricular size with overall diminished LV systolic function. The estimated ejection fraction is 35 %. The left atrium is moderately enlarged. There is mild sponatenous contrast in the left atrium. No thrombus is detected in the left atrial appendage. Prominent eustachian valve. Mild diffuse mitral valve thickening. Mild (1+) mitral valve insufficiency. Mild tricuspid valve insufficiency. Mild diffuse aortic valve thickening. Mild diffuse aortic valve calcification. Bubble contrast study negative for right to left interatrial shunt. Mild atherosclerosis of the aortic arch. ICD or pacer leads identified within the right atrium ICD or pacer leads identified within the right ventricle. Based upon the 2D echocardiographic images obtained there appears to be no obvious 2D echocardiographic findings compatible with findings considered compatible with infectious endocarditis. Ordering Physician: Zac Parker Referring Physician: MD Liliya Alexandro Performed By: Jolie Madison, [facility] Physical Exam Narrative General: On NIV HEENT: Head is normocephalic, atraumatic, on BiPAP. Cardio: S1, S2, rhythm rate regular Respiratory: diminished posterior breath sounds with faint rales posteriorly. Extremities: no edema of legs or feet Assessment & Plan Assessment/Plan (1) MIRANDA (acute kidney injury): PLAN: -The patient has underlying chronic kidney disease with serum creatinine of 1.5 mg/dL at baseline. -MIRANDA was initially prerenal with fractional excretion of sodium of less than 1% on 07/24/2021. Prerenal MIRANDA has likely evolved to ATN. -Serum creatinine peaked at 3.60 mg/dL on 07/24/2021. -There has been a gradual improvement in renal function with creatinine coming down to 1.73 mg/dL on 07/28/2021. -However, serum creatinine increased again to 1.89 mg/dL on 07/29/2021. Serum creatinine has increased further to 2.15 mg/dL today. -The patient has been requiring IV loop diuretic because of pulmonary edema and pleural effusion. -We will likely have to tolerate some elevation in his creatinine between 1.9 to 2.2 mg/dL to keep the patient more euvolemic. -IV Lasix dose has been decreased to twice a day from 3 times a day on 07/31/2021. -Recheck renal function, volume status, electrolytes and acid-base status again tomorrow. -There is no need for kidney replacement therapy at this point. (2) DKA (diabetic ketoacidosis): QUALIFIERS: Diabetes mellitus type: type 2 Diabetes mellitus complication detail: without coma Qualified Code(s): E11.10 - Type 2 diabetes mellitus with ketoacidosis without coma PLAN: -Resolved. Management as per primary service. (3) Acute hypoxemic respiratory failure: PLAN: -He is being treated for possible pneumonia. He is on cefazolin. -Respiratory failure is also likely due to pulmonary edema and pleural effusion. He is being treated with IV furosemide. -We will monitor renal function, electrolyte, and acid-base status while he i s being diuresed. -As mentioned above, we will likely have to tolerate some elevation of serum creatinine while the patient is being diuresed. (4) CHF exacerbation: QUALIFIERS: Heart failure type: unspecified Qualified Code(s): I50.9 - Heart failure, unspecified PLAN: -Cardiology following. Possibly planning OBINNA once O2 requirements improve. Currently on Bipap. - The patient has decreased ejection fraction at 25 to 30% from 50% February 2021. -The patient is being diuresed. Continue to restrict fluid to 1.5 L/day or less. -See above.
[2021-07-31 21:08] LABS: Partial Thromboplast Time 73.6 Seconds (24.1-36.2)
[2021-07-31] MEDS: Atorvastatin Calcium 20 MG Tablet PO (21:46)
[2021-07-31] MEDS: Metoprolol Tartrate 25 MG Tablet 12.5 MG PO (21:46)
[2021-07-31 22:06] LABS: Bedside Glucose 181 mg/dL (74-106)
[2021-08-01] VITALS (32 sets, daily range): BP systolic 94–127; BP diastolic 43–85; PULSE 75–98; RESP 12–40; TEMP 36.3–37.1; O2SAT 88–96
--- NOTE | 2021-08-01 04:05 | NURSING ---
Respiratory called to report took pt off bipap, pt no longer wanted to wear it for the night, 03308/01.
[2021-08-01 05:42] LABS: Partial Thromboplast Time 83.9 Seconds (24.1-36.2)
[2021-08-01 06:03] LABS: Anion Gap 7 (5-15); BUN 80 mg/dL (7-18); BUN/Creat Ratio 37.2 RATIO (10-20); Calcium,Total 8.5 mg/dL (8.5-10.1); Chloride 106 mmol/L (98-107); Creatinine, Serum 2.15 mg/dL (0.70-1.30); EST Glomerular Filtration Rate 31 mL/min (>60); Est Glom Filt Rate - Afr Amer 38 mL/min (>60); Estimated Creatinine Clearance 29.74 ml/min; Glucose 117 mg/dL (74-106); Potassium 3.6 mmol/L (3.5-5.1); Sodium Level 138 mmol/L (136-145)
[2021-08-01] MEDS: Levothyroxine 125 MCG Tablet PO (06:10)
[2021-08-01] MEDS: Ipratropium/Albuterol Sulfate 3 ML AMPUL.NEB INHALATION ×4 (07:08→19:48)
[2021-08-01] MEDS: Budesonide Respules 0.5 MG/2 ML AMPUL.NEB. INHALATION ×2 (07:08→19:48)
--- NOTE | 2021-08-01 07:18 | PCM.PN.INT ---
Assessment & Plan Assessment/Plan (1) Sepsis: PLAN: RECOMMENDATIONS: 1. Wean supplemental oxygen as tolerated to maintain saturations at or above 90%. 2. Must use PAP therapy per home regimen with naps and nightly. 3. Careful use of diuretics. 4. Aggressive pulmonary toileting with Acapella, incentive spirometer and out of bed as tolerated 5. Consider transition to 10 a inhibitor 6. Continue basal and sliding scale insulin coverage. IMPRESSIONS: 1. Acute on chronic hypoxemic respiratory failure secondary to MSSA pneumonia The patient presented to the hospital with worsening shortness of breath and chest pain. The patient has a known history of a severe mixed ventilatory defect with moderate reduction in diffusing capacity and chest imaging which revealed evidence of an evolving interstitial lung process. Prior 6-minute walk test revealed the need for 2 L/min of oxygen at rest and 4 L/min with exertion. The patient's medical history is also significant for coronary disease status post CABG. Patient with good diuresis yesterday and appears to be improved today. Stressed to the patient the importance of pulmonary toileting to improve oxygenation status. Also stressed to the patient the importance of using BiPAP to allow for recruitment. Transition of sputum from yellow to clear is suggesting improvement in affective status. We will repeat chest x-ray tomorrow for evaluation. 2. Septic shock Resolved. Patient growing MSSA from multiple blood cultures. Clinical suspicion for pulmonary etiology. Patient has responded well. Patient's blood pressure remained stable. Patient has had increased FiO2 requirements, but this appears to be secondary to a lack of diuretic. Blood pressure has done okay. 3. Chest pain/NSTEMI Initially felt to be secondary to demand ischemia in the setting of numbers 1 and 2. However, the patient's surface echocardiogram demonstrated a significant reduction in ejection fraction along with severe LV systolic dysfunction, which was not present on prior echo. Cardiology is currently following to assist with medical management. Patient could likely be transition to Lovenox or a 10 a inhibitor from my perspective. Defer to cardiology. 4. Diabetic ketoacidosis Resolved. Continue basal and sliding scale insulin coverage. 5. Acute on chronic kidney disease Stable. Most likely prerenal in etiology. Anticipate further improvement in renal function with volume expansion and stabilization of hemodynamics. Continue to monitor urine output. No current indication for renal replacement therapy. Nephrology is following. 6. Advanced age/paroxysmal atrial fibrillation/anemia/hypothyroidism/sick sinus syndrome/sleep apnea Complicates care, management, recovery and prognosis. Continue home medications as indicated. The patient can be continued on his home BiPAP with a pressure support of 12/7 centimeters of water. Subjective Subjective Patient did okay overnight. Patient continues to report a cough productive of clear to white sputum. Patient is not reporting any chest pain. Patient did wear his BiPAP for short period of time overnight, but was found sleeping on nasal cannula oxygen. Patient was able to be weaned to 8 L nasal cannula Objective Data Objective Data Vital Signs: Vital Signs Temp Pulse Resp BP Pulse Ox 36.7 C 90 29 H 114/68 96 08/01/21 07:00 08/01/21 07:00 08/01/21 07:00 08/01/21 07:00 08/01/21 07:00 Oxygen Flow Rate (L/min) 10 Oxygen Delivery Method High Flow Weight: 114.7 kg Body Mass Index (BMI) 33.4 Intake & Output: Intake and Output for Last 24 Hours 07/30/21 07/31/21 08/01/21 23:59 23:59 23:59 Intake Total 1336.05 / 1336.05 1155.67 / 1985.67 1099.67 / 1099.67 Output Total 1025 / 1025 1950 / 2375 900 / 900 Balance 311.05 / 311.05 -794.33 / -389.33 199.67 / 199.67 Lab / Micro Data Result Diagrams: 07/31/21 05:20 08/01/21 04:09 Labs: Laboratory Results - last 24 hr 07/30/21 04:25: Diff Path Review Reviewed 07/31/21 08:20: POC Glucose 178 H 07/31/21 13:50: APTT 72.6 H 07/31/21 16:25: POC Glucose 158 H 07/31/21 20:22: APTT 73.6 H 07/31/21 21:50: POC Glucose 181 H 08/01/21 04:09: Sodium 138, Potassium 3.6, Chloride 106, Carbon Dioxide 25.0, Anion Gap 7, BUN 80 H, Creatinine 2.15 H, Estim Creat Clear Calc 29.74, Est GFR (MDRD) Af Amer 38 L, Est GFR (MDRD) Non-Af 31 L, BUN/Creatinine Ratio 37.2 H, Glucose 117 H, Calcium 8.5 03/19/22 04:09: APTT 83.9 H Micro: Microbiology 07/28/21 12:35 Blood Culture (Wb) - Anticubital Left Blood Culture - Preliminary No growth in 48 hours. 07/27/21 09:30 Blood Culture (Wb) - Anticubital Left Blood Culture - Preliminary No growth in 48 hours. 07/25/21 15:20 Blood Culture (Wb) - Pic Blood Culture - Final Staphylococcus aureus 07/24/21 21:55 Sputum, Expectorated/Coughed Gram Stain - Final 07/24/21 21:55 Sputum, Expectorated/Coughed Respiratory Culture - Final Staphylococcus aureus Streptococcus agalactiae (B) 07/24/21 08:55 Urine Catheter - Art Urine Culture - Final Culture exhibits no growth. 07/24/21 05:31 Blood Culture (Wb) - Anticubital Right Blood Culture - Final Staphylococcus aureus 07/24/21 05:20 Blood Culture (Wb) - Left Wrist Blood Culture - Final Staphylococcus aureus 07/24/21 08:10 Mucosa - Nasopharyngeal Respiratory Panel (PCR) - Final 07/24/21 08:20 Urine Catheter - Art Legionella Antigen - Final 07/24/21 08:20 Urine Catheter - Art Streptococcus pneumoniae Antigen (M - Final 07/24/21 04:44 Nasal Secretion SARS-CoV-2 Antigen (Rapid) - Final Radiography Diagnostic Testing: Radiology Impression Chest X-Ray 07/31/21 05:55 IMPRESSION: No significant interval change from 07/27/2021 Electronically Signed: Luisito Zamora, at 7:59 EDT , Transesophageal Echocardiogram 07/31/21 08:42 Interpretation Summary Based upon the 2D echocardiographic images obtained, all the LV wall segments are not well visualized, however, there appears to be grossly normal left ventricular size with overall diminished LV systolic function. The estimated ejection fraction is 35 %. The left atrium is moderately enlarged. There is mild sponatenous contrast in the left atrium. No thrombus is detected in the left atrial appendage. Prominent eustachian valve. Mild diffuse mitral valve thickening. Mild (1+) mitral valve insufficiency. Mild tricuspid valve insufficiency. Mild diffuse aortic valve thickening. Mild diffuse aortic valve calcification. Bubble contrast study negative for right to left interatrial shunt. Mild atherosclerosis of the aortic arch. ICD or pacer leads identified within the right atrium ICD or pacer leads identified within the right ventricle. Based upon the 2D echocardiographic images obtained there appears to be no obvious 2D echocardiographic findings compatible with findings considered compatible with infectious endocarditis. Ordering Physician: Zac Parker Referring Physician: MD Liliya Alexandro Performed By: Jolie Madison [facility] [[email or web address]] Physical Exam Const alert, oriented x3, no apparent distress and average body habitus Constitutional Narrative: on nasal cannula Orientation / Consciousness: awake HEENT normocephalic, head/scalp atraumatic, hearing grossly normal bilaterally and moist oral mucous membranes Eyes PERRL, EOMs intact bilaterally and conjunctivae normal Neck full ROM, supple and no JVD Resp Auscultation: rhonchi throughout (Scattered) and wheezes scattered wheezes and throughout Cardio regular rate and regular rhythm; Negative for no murmurs, no rub or no gallops Cardio Narrative: distant Rhythm: abnormal rhythm irregularly irregular Heart Sounds: S1 normal and S2 normal GI normal to inspection, nondistended, normoactive bowel sounds, soft to palpation and non-tender Extremity normal to inspection, no clubbing, cyanosis or edema and no pedal edema Skin no rashes or lesions noted Neuro oriented x3 and CN's II-XII intact bilaterally Psych mental status grossly normal Charges/Coding Visit Charges Inpatient E&M: 66160 Subs Hosp L3
[2021-08-01] MEDS: Aspirin E.C. 81 MG Tablet PO (07:59)
[2021-08-01] MEDS: Insulin Lispro 100 UNIT/ML INSULN.PEN SC ×2 (07:59)
[2021-08-01 08:21] LABS: Bedside Glucose 162 mg/dL (74-106)
[2021-08-01] MEDS: Furosemide 40 MG/4 ML Vial IV ×2 (09:03→18:24)
[2021-08-01] MEDS: Menthol/Lanolin/Calamine/Znox 113 GM Tube 1 APPLIC TOPICAL ×2 (10:08→23:26)
--- NOTE | 2021-08-01 10:19 | PN.HOSP_ITS ---
Subjective Subjective Discussed with him multiple times the need to be on BiPAP when he sleeps as well as to do pulmonary toileting when he is awake. Currently today evaluated while on BiPAP. He is little bit tachypneic but on 55% FiO2 with oxygen sat of 96% Objective Data Objective Data Vital Signs: Vital Signs Temp Pulse Resp BP Pulse Ox 97.7 F L 85 32 H 110/55 L 96 08/01/21 10:00 08/01/21 10:00 08/01/21 10:00 08/01/21 10:00 08/01/21 10:00 Oxygen Flow Rate (L/min) 10 Oxygen Delivery Method Bi-pap Weight: 252 lb 13.923 oz Body Mass Index (BMI) 33.4 Intake & Output: Intake and Output for Last 24 Hours 07/31/21 08/01/21 08/02/21 03:59 03:59 03:59 Intake Total 1096.05 / 1096.05 1875.67 / 1875.67 269.67 / 269.67 Output Total 575 / 575 2375 / 2375 475 / 475 Balance 521.05 / 521.05 -499.33 / -499.33 -205.33 / -205.33 Lab / Micro Data Result Diagrams: 07/31/21 05:20 08/01/21 04:09 Labs: Laboratory Results - last 24 hr 07/30/21 04:25: Diff Path Review Reviewed 07/31/21 13:50: APTT 72.6 H 07/31/21 16:25: POC Glucose 158 H 07/31/21 20:22: APTT 73.6 H 07/31/21 21:50: POC Glucose 181 H 08/01/21 04:09: Sodium 138, Potassium 3.6, Chloride 106, Carbon Dioxide 25.0, Anion Gap 7, BUN 80 H, Creatinine 2.15 H, Estim Creat Clear Calc 29.74, Est GFR (MDRD) Af Amer 38 L, Est GFR (MDRD) Non-Af 31 L, BUN/Creatinine Ratio 37.2 H, Glucose 117 H, Calcium 8.5 08/01/21 04:09: APTT 83.9 H 08/01/21 07:54: POC Glucose 162 H Micro: Microbiology 07/28/21 12:35 Blood Culture (Wb) - Anticubital Left Blood Culture - Prel iminary No growth in 48 hours. 07/27/21 09:30 Blood Culture (Wb) - Anticubital Left Blood Culture - Preliminary No growth in 48 hours. 07/25/21 15:20 Blood Culture (Wb) - Pic Blood Culture - Final Staphylococcus aureus 07/24/21 21:55 Sputum, Expectorated/Coughed Gram Stain - Final 07/24/21 21:55 Sputum, Expectorated/Coughed Respiratory Culture - Final Staphylococcus aureus Streptococcus agalactiae (B) 07/24/21 08:55 Urine Catheter - Art Urine Culture - Final Culture exhibits no growth. 07/24/21 05:31 Blood Culture (Wb) - Anticubital Right Blood Culture - Final Staphylococcus aureus 07/24/21 05:20 Blood Culture (Wb) - Left Wrist Blood Culture - Final Staphylococcus aureus 07/24/21 08:10 Mucosa - Nasopharyngeal Respiratory Panel (PCR) - Final 07/24/21 08:20 Urine Catheter - Art Legionella Antigen - Final 07/24/21 08:20 Urine Catheter - Art Streptococcus pneumoniae Antigen (M - Final 07/24/21 04:44 Nasal Secretion SARS-CoV-2 Antigen (Rapid) - Final Radiography Diagnostic Testing: Radiology Impression Transesophageal Echocardiogram 07/31/21 08:42 Interpretation Summary Based upon the 2D echocardiographic images obtained, all the LV wall segments are not well visualized, however, there appears to be grossly normal left ventricular size with overall diminished LV systolic function. The estimated ejection fraction is 35 %. The left atrium is moderately enlarged. There is mild sponatenous contrast in the left atrium. No thrombus is detected in the left atrial appendage. Prominent eustachian valve. Mild diffuse mitral valve thickening. Mild (1+) mitral valve insufficiency. Mild tricuspid valve insufficiency. Mild diffuse aortic valve thickening. Mild diffuse aortic valve calcification. Bubble contrast study negative for right to left interatrial shunt. Mild atherosclerosis of the aortic arch. ICD or pacer leads identified within the right atrium ICD or pacer leads identified within the right ventricle. Based upon the 2D echocardiographic images obtained there appears to be no obvio us 2D echocardiographic findings compatible with findings considered compatible with infectious endocarditis. Ordering Physician: Zac Parker Referring Physician: MD Liliya Alexandro Performed By: Jolie Madison, [facility] Physical Exam Narrative Const alert, oriented x3 and no apparent distress General Appearance: cooperative HEENT normocephalic and moist oral mucous membranes Eyes PERRL, EOMs intact bilaterally and conjunctivae normal Neck supple and no JVD Resp normal respiratory effort, no retractions and no use of accessory muscles Auscultation: Rhonchi with diminished lung sounds; Negative for crackles, rales, wheezes Cardio regular rate, irregular rhythm, S1 normal heart sound, S2 normal heart sound and no murmurs GI soft to palpation, non-tender and non-distended; Negative for hepatosplenomegaly Extremity General Extremity: Negative for clubbing or cyanosis or edema Skin no rashes or lesions noted Neuro no focal motor deficits and no sensory deficits noted Psych affect normal Appearance: appropriate Assessment & Plan Assessment/Plan (1) DKA (diabetic ketoacidosis): QUALIFIERS: Diabetes mellitus type: type 2 Diabetes mellitus comp lication detail: without coma Qualified Code(s): E11.10 - Type 2 diabetes mellitus with ketoacidosis without coma (2) Community acquired pneumonia: QUALIFIERS: Laterality: unspecified laterality Qualified Code(s): J18.9 - Pneumonia, unspecified organism (3) MIRANDA (acute kidney injury): (4) Acute hypoxemic respiratory failure: PLAN: 1. Acute on chronic hypoxic respiratory failure and septic shock due to pneumonia and bacteremia ?Multifactorial including COPD with acute exacerbation, pulmonary fibrosis from recent COVID 19 pneumonia in January 2021. Patient was placed on noninvasive ventilation BiPAP admitted to the intensive care unit consultation placed to pulmonary medicine. Patient was placed on empiric antibiotic therapy pending culture results obtained on admission. Patient remains significantly at risk for possible intubation. Consult placed to pulmonary medicine Case discussed with Dr. Aj ?Present on admission patient was managed with IV fluid resuscitation as well as broad-spectrum antibiotic therapy. Cultures obtained on admission so far positive for gram-positive cocci final identification and sensitivities pending ?07/25/2021; patient has been weaned off BiPAP however remains on high flow oxygen -07/26/2021; Patient blood cultures positive for Staph aureus, repeat cultures obtained and if positive patient may need to undergo further evaluation with OBINNA. Initial TTE obtained did not mention any evidence of endocarditis. Consult has subsequently been placed to ID. Patient remains in ICU and is cu rrently on Levophed ?07/27/2021: We will repeat blood cultures today, blood cultures on the are positive for may not need to do a OBINNA if cleared, he is off Levophed and is down to 3 to 4 L nasal cannula maintain his oxygen saturations ?07/28/2021: We will hold off on a OBINNA today unless we can get his oxygen requirements down from his 10 L that he is currently at, antibiotics narrowed to Ancef ?07/29/2021: His respiratory failure is likely now due to volume overload from sepsis protocol, he is 3 L positive. We have increased his IV Lasix to 3 times daily dosing per cardiology will have a low threshold for transferring back to the ICU given his borderline blood pressures in the setting of his septic shock. ?07/30/2021: Continue with IV Lasix, and inhalers. From on a fluid restriction yesterday he is now almost 4 L positive will see if we cannot take off any further IV fluids medications to help with his volume status. Blood cultures are normal and cleared fairly quickly. Currently on Ancef, sputum culture with MSSA and strep, blood cultures with MSSA ?07/31/2021: OBINNA was unremarkable for vegetations, cardiology recommends possible bronchoscopy. Hopefully we can also discontinue his heparin drip if okay with cardiology in order to minimize fluid and take ?08/01/2021: Continue to encourage BiPAP use as well as pulmonary toileting. Will DC his heparin drip and start him back on his Eliquis 2. Diabetic ketoacidosis ?Managed with IV fluids, correction of electrolyte as well as insulin with every 4 BMPs ordered and subsequent adjustment made to therapy ?07/25/2021; anion gap down to 15. Patient insulin drip discontinued started on scheduled long-acting insulin with sliding scale coverage 07/26/2021; patient DKA resolved switch to long-acting insulin with subsequent adjustment made in view of significant hypoglycemia ?We will continue to monitor make adjustments to his insulin 3. Elevated troponin acute non-STEMI/acute on chronic systolic CHF?CAD/paroxysmal A. fib/HLD/sick sinus syndrome status post pacemaker ?Patient did present with chest pain but had no EKG changes consistent with acute ischemia. Admitted to intensive care unit serial cardiac enzymes ordered in addition to a 2D echo and consultation placed to cardiology. 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 Echo obtained demonstrated EF of 25 to 30% with severe LV systolic dysfunction with global LV hypokinesis ?Echo obtained on 03/10/2021 demonstrated EF of 50% ?07/26/2019: repeat echo obtained did reveal EF of 20 to 30% consistent with heart failure with reduced ejection fraction ?07/28/2021: Shortness of breath overnight with increased markings in his chest x-ray, will initiate him on Lasix ?07/30/2021: Continue to recommend BiPAP whenever he is sleeping and aggressive diuresis ?08/01/2021: We will decrease his Lasix to twice daily dosing given his creatinine bumped. We will stop his heparin 4. Acute kidney injury ?Superimposed on chronic kidney disease stage IIIa. Patient baseline creatinine 1.41.5 creatinine on admission was 3.34. Currently on IV fluid with serial BMPs ordered ?07/25/2021 no improvement in kidney function -07/26/2021; creatinine down to 2.84, peaked at 3.6 ?07/29/2021: Creatinine down to 1.89 ?07/30/2021: Creatinine is 1.88 today will monitor and appreciate nephrology's assistance ?07/31/2021: Creatinine is elevated over 2 again today 5. Anemia - Secondary to chronic disorder monitoring H&H and transfuse if patient becomes symptomatic or hemoglobin falls below 7 6. Hypothyroidism - Patient is on levothyroxine home dose continued 7. BPH ?Patient is on Flomax as well as dutasteride; discontinue 8. Gout ?Patient is on allopurinol 9. GERD ?Patient's PPI 10. Class I obesity with BMI of 33.2 ?Weight loss advised 11. Obstructive sleep apnea ?PAP therapy at night DVT: Helen daily Charges/Coding Visit Charges Inpatient E&M: 00256 Subs Hosp L2
[2021-08-01] MEDS: APIXABAN 2.5 MG TABLET PO (11:15)
[2021-08-01] MEDS: Metoprolol Tartrate 25 MG Tablet 12.5 MG PO (11:16)
[2021-08-01] MEDS: guaiFENesin 1,200 MG Tablet 1200 MG PO (11:16)
[2021-08-01] MEDS: Pantoprazole Sodium 40 MG Tablet PO (11:17)
[2021-08-01] MEDS: Allopurinol 300 MG Tablet PO (11:17)
[2021-08-01] MEDS: Finasteride 5 MG Tablet PO (11:17)
--- NOTE | 2021-08-01 12:03 | CPS ---
Vt increased to 500. Itime changed 1:2 nurse aware of changes
--- NOTE | 2021-08-01 12:12 | PN.CARD_ITS ---
Subjective Subjective Denies chest pain. Shortness of breath appears to be improving. Objective Data Vital Signs: Vital Signs Temp Pulse Resp BP Pulse Ox 97.7 F L 88 28 H 110/55 L 93 08/01/21 10:00 08/01/21 11:36 08/01/21 11:36 08/01/21 11:16 08/01/21 11:36 Oxygen Flow Rate (L/min) 10 Oxygen Delivery Method Bi-pap Weight: 252 lb 13.923 oz Body Mass Index (BMI) 33.4 Intake & Output: Intake and Output for Last 24 Hours 07/30/21 07/31/21 08/01/21 23:59 23:59 23:59 Intake Total 1336.05 / 1336.05 1155.67 / 1985.67 1099.67 / 1099.67 Output Total 1025 / 1025 1950 / 2375 900 / 900 Balance 311.05 / 311.05 -794.33 / -389.33 199.67 / 199.67 Lab / Micro Data Result Diagrams: 07/31/21 05:20 08/01/21 04:09 Labs: Laboratory Results - last 24 hr 07/30/21 04:25: Diff Path Review Reviewed 07/31/21 13:50: APTT 72.6 H 07/31/21 16:25: POC Glucose 158 H 07/31/21 20:22: APTT 73.6 H 07/31/21 21:50: POC Glucose 181 H 08/01/21 04:09: Sodium 138, Potassium 3.6, Chloride 106, Carbon Dioxide 25.0, Anion Gap 7, BUN 80 H, Creatinine 2.15 H, Estim Creat Clear Calc 29.74, Est GFR (MDRD) Af Amer 38 L, Est GFR (MDRD) Non-Af 31 L, BUN/Creatinine Ratio 37.2 H, Glucose 117 H, Calcium 8.5 08/01/21 04:09: APTT 83.9 H 08/01/21 07:54: POC Glucose 162 H Micro: Microbiology 07/27/21 09:30 Blood Culture (Wb) - Anticubital Left Blood Culture - Final No growth in 5 days. Cardiology Labs/Tests 07/31/21 13:50: APTT 72.6 H 07/31/21 20:22: APTT 73.6 H 08/01/21 04:09: Sodium 138, Potassium 3.6, Chloride 106, Carbon Dioxide 25.0, Anion Gap 7, BUN 80 H, Creatinine 2.15 H, Est GFR (MDRD) Af Amer 38 L, Est GFR (MDRD) Non-Af 31 L, BUN/Creatinine Ratio 37.2 H, Glucose 117 H, Calcium 8.5 08/01/21 04:09: APTT 83.9 H Rhythm: EKG: ECHO: Stress Test: Cardiac Cath: PCI: CT Surgery: Holter monitor: EPS: PPM: CXR: Chest CT Scan: Radiography Diagnostic Testing: Radiology Impression Transesophageal Echocardiogram 07/31/21 08:42 Interpretation Summary Based upon the 2D echocardiographic images obtained, all the LV wall segments are not well visualized, however, there appears to be grossly normal left ventricular size with overall diminished LV systolic function. The estimated ejection fraction is 35 %. The left atrium is moderately enlarged. There is mild sponatenous contrast in the left atrium. No thrombus is detected in the left atrial appendage. Prominent eustachian valve. Mild diffuse mitral valve thickening. Mild (1+) mitral valve insufficiency. Mild tricuspid valve insufficiency. Mild diffuse aortic valve thickening. Mild diffuse aortic valve calcification. Bubble contrast study negative for right to left interatrial shunt. Mild atherosclerosis of the aortic arch. ICD or pacer leads identified within the right atrium ICD or pacer leads identified within the right ventricle. Based upon the 2D echocardiographic images obtained there appears to be no obvious 2D echocardiographic findings compatible with findings considered compatible with infectious endocarditis. Ordering Physician: Zac Parker Referring Physician: MD Liliya Alexandro Performed By: Jolie Madison, [facility] Physical Exam Const alert and oriented x3 Orientation / Consciousness: awake HEENT normocephalic Eyes no scleral icterus Neck supple Resp normal respiratory effort Cardio Cardio Narrative: Irregular rhythm Extremity General Extremity: edema right lower extremity trace Skin no rashes or lesions noted Psych mental status grossly normal Assessment & Plan Assessment/Plan (1) NSTEMI (non-ST elevated myocardial infarction): PLAN: Possibly type II NH. Being treated for pneumonia and MSSA bacteremia. OBINNA did not show any vegetations. Continue current management. Patient does have a drop in his EF. He does have kidney insufficiency as well. At some point coronary angiography could be considered. In view of his advanced age and multiple medical problems conservative treatment with medications may be reasonable as well. (2) Cardiomyopathy: QUALIFIERS: Cardiomyopathy type: unspecified Qualified Code(s): I42.9 - Cardiomyopathy, unspecified PLAN: Appears to be compensated from a cardiomyopathy standpoint. Lasix could be switched to p.o. (3) Paroxysmal atrial fibrillation: PLAN: Rate controlled. On Eliquis as well. Charges/Coding Visit Charges Inpatient E&M: 87061 Subs Hosp L2
[2021-08-01 12:21] LABS: Bedside Glucose 134 mg/dL (74-106)
[2021-08-01 12:24] LABS: Partial Thromboplast Time 50.3 Seconds (24.1-36.2)
[2021-08-01] MEDS: 0.9% Saline Lock 10 ML Syringe IV ×3 (12:27→21:36)
[2021-08-01] MEDS: Cefazolin 2 GM in 0.9% Normal Saline 100 ML IV ×2 (12:27→23:25)
[2021-08-01 16:55] LABS: Bedside Glucose 138 mg/dL (74-106)
[2021-08-01 22:17] LABS: Bedside Glucose 178 mg/dL (74-106)
[2021-08-02] VITALS (31 sets, daily range): BP systolic 92–134; BP diastolic 49–103; PULSE 82–101; RESP 12–33; TEMP 36.4–37.6; O2SAT 87–96
[2021-08-02 05:47] LABS: Hematocrit 34.4 % (40-54); Mean Corpuscular Volume 90.8 fL (80-94); Mean Platelet Vol. 9.9 fl (6.2-12.0); POSITIVE COUNT YES; POSITIVE MORPHOLOGY YES; Platelet Count 221 K/mm3 (150-450); RBC Distribution Width CV 16.8 % (11.6-14.6); RBC Distribution Width SD 55.4 fl (35.1-43.9); Red Blood Count 3.79 M/mm3 (4.6-6.2); White Blood Count 17.5 K/mm3 (4.4-11.0)
[2021-08-02 06:08] LABS: Differential Indicated MANUAL DIFF
[2021-08-02 06:11] LABS: Anion Gap 8 (5-15); BUN 81 mg/dL (7-18); BUN/Creat Ratio 34.6 RATIO (10-20); Calcium,Total 8.8 mg/dL (8.5-10.1); Chloride 111 mmol/L (98-107); Creatinine, Serum 2.34 mg/dL (0.70-1.30); EST Glomerular Filtration Rate 28 mL/min (>60); Est Glom Filt Rate - Afr Amer 34 mL/min (>60); Estimated Creatinine Clearance 27.32 ml/min; Glucose 190 mg/dL (74-106); Potassium 3.8 mmol/L (3.5-5.1); Sodium Level 144 mmol/L (136-145)
[2021-08-02 06:55] LABS: Basophil 1 % (0-1); Lymphocyte 5 % (19-41); Metamyelocyte 3 % (0-1); Monocyte 6 % (0-10); Myelocyte 6 % (0-0); Neutrophil-Band 2 % (0-5); Neutrophil-Segmented 77 % (47-70); Platelet Estimate ADEQUATE (ADEQ); Red Cell Morphology NORM C+C NORMAL (NORM C&C); Total Cells Counted 100 (MANUAL DIFF); Toxic Granulation 1+
[2021-08-02 06:56] LABS: Absolute Lymphocyte Count 0.88 X10^3/uL (0.83-4.51); Absolute Neutrophil Count 13.9 X10^3/uL (2.0-7.7); Lymphocyte # 0.88 X10^3/ul (0.83-4.51); Neutrophil # 13.85 X10^3/uL (2.7-7.7)
--- NOTE | 2021-08-02 06:57 | RAD_ITS ---
STUDY: X-RAY CHEST REASON FOR EXAM: Male, 85 years old. Hypoxia TECHNIQUE: AP portable upright COMPARISON: None. FINDINGS: There is a right arm PICC line with the tip in the superior vena cava. There are bilateral basilar infiltrates. There are small right sided pleural effusion. There is a calcified granuloma in the left mid lung field There is mild cardiomegaly. There are postsurgical changes of a median sternotomy. There is a pacemaker on the left. Normal mediastinum and joey. Normal visualized pulmonary arteries. Normal visualized aortic arch and descending thoracic aorta. Normal visualized thoracic spine. Normal visualized ribs, clavicles, and shoulders. There is no demonstrated abnormality of the visualized soft tissue structures of the upper abdomen. RAD/Chest 1 View (Portable) IMPRESSION: There is mild cardiomegaly with basilar infiltrates. There is a pacemaker on the left. Electronically Signed: Wilman Joseph MD at 7:23 EDT ,
[2021-08-02] MEDS: Ipratropium/Albuterol Sulfate 3 ML AMPUL.NEB INHALATION ×4 (07:16→19:32)
[2021-08-02] MEDS: Budesonide Respules 0.5 MG/2 ML AMPUL.NEB. INHALATION (07:16)
--- NOTE | 2021-08-02 07:25 | PN.CC_ITS ---
Assessment & Plan Assessment/Plan (1) Sepsis: PLAN: RECOMMENDATIONS: 1. Wean supplemental oxygen as tolerated to maintain saturations at or above 90%. 2. Must use PAP therapy per home regimen with naps and nightly. 3. Careful use of diuretics. Cardiology and nephrology following 4. Aggressive pulmonary toileting with Acapella, incentive spirometer and out of bed as tolerated 5. Continue Eliquis 6. Transition budesonide to Solu-Medrol given n.p.o. status IMPRESSIONS: 1. Acute on chronic hypoxemic respiratory failure secondary to MSSA pneumonia The patient presented to the hospital with worsening shortness of breath and chest pain. The patient has a known history of a severe mixed ventilatory defect with moderate reduction in diffusing capacity and chest imaging which revealed evidence of an evolving interstitial lung process. Prior 6-minute walk test revealed the need for 2 L/min of oxygen at rest and 4 L/min with exertion. The patient's medical history is also significant for coronary disease status p ost CABG. Patient with good diuresis yesterday and appears to be improved today. Stressed to the patient the importance of pulmonary toileting to improve oxygenation status. Also stressed to the patient the importance of using BiPAP to allow for recruitment. Transition of sputum from yellow to clear is suggesting improvement in affective status. Chest x-ray does appear to be improved compared to previous. We will transition to systemic steroids as patient does not appear to be improving from an oxygenation standpoint. This has caused significant issues with hyperglycemia in the past so this will need to be watched. 2. Septic shock Resolved. Patient growing MSSA from multiple blood cultures. Clinical suspicion for pulmonary etiology. Patient has responded well. Patient's blood pressure remained stable. Blood pressure has done okay 4 days and sputum appears to be clearing. No endocarditis noted by cardiology 3. Chest pain/NSTEMI Initially felt to be secondary to demand ischemia in the setting of numbers 1 and 2. However, the patient's surface echocardiogram demonstrated a significant reduction in ejection fraction along with severe LV systolic dysfunction, which was not present on prior echo. Cardiology is currently following to assist with medical management. Patient tolerating 10 a inhibitor well 4. Diabetic ketoacidosis Resolved. Continue basal and sliding scale insulin coverage. Will need to watch blood sugars closely given transition to systemic steroids 5. Acute on chronic kidney disease Stable. Most likely prerenal in etiology. Anticipate further improvement in renal function with volume expansion and stabilization of hemodynamics. Continue to monitor urine output. No current indication for renal replacement therapy. Nephrology is following. 6. Advanced age/paroxysmal atrial fibrillation/anemia/hypothyroidism/sick sinus syndrome/sleep apnea Complicates care, management, recovery and prognosis. Continue home medications as indicated. The patient can be continued on his home BiPAP with a pressure support of 12/7 centimeters of water. Subjective Subjective Patient did okay overnight. Patient is complaining about being n.p.o., but continues to deny shortness of breath. Patient is still requiring 8 to 10 L of oxygen to maintain saturations. Patient did wear BiPAP overnight. Patient states his cough is becoming less productive. Patient does report that he was to the chair yesterday. Objective Data Objective Data Repeat chest x-ray today appears to be improved compared to previous. No significant pleural effusions or new findings Vital Signs: Vital Signs Temp Pulse Resp BP Pulse Ox 36.5 C L 88 28 H 103/49 L 93 08/02/21 06:59 08/02/21 06:59 08/02/21 06:59 08/02/21 06:59 08/02/21 06:59 Oxygen Flow Rate (L/min) 10 Oxygen Delivery Method High Flow Weight: 114.3 kg Body Mass Index (BMI) 33.4 Intake & Output: Intake and Output for Last 24 Hours 07/31/21 08/01/21 08/02/21 23:59 23:59 23:59 Intake Total 1155.67 / 1985.67 1565.00 / 1565.00 110 / 110 Output Total 1950 / 2375 2450 / 2450 750 / 750 Balance -794.33 / -389.33 -885.00 / -885.00 -640 / -640 Lab / Micro Data Result Diagrams: 08/02/21 05:23 08/02/21 05:23 Labs: Laboratory Results - last 24 hr 08/01/21 07:54: POC Glucose 162 H 08/01/21 11:19: POC Glucose 134 H 08/01/21 12:08: APTT 50.3 H 08/01/21 16:29: POC Glucose 138 H 08/01/21 21:32: POC Glucose 178 H 08/02/21 05:23: WBC 17.5 H, RBC 3.79 L, Hgb 11.0 L, Hct 34.4 L, MCV 90.8, MCH 29.0, MCHC 32.0, RDW Std Deviation 55.4 H, RDW Coeff of Thang 16.8 H, Plt Count 221, MPV 9.9, Neut % (Auto) Not Reportable, Absolute Neuts (auto) 13.9 H, Absolu te Lymphs (auto) 0.88, Total Counted 100, Neutrophils % (Manual) 77 H, Band N eutrophils % 2, Lymphocytes % (Manual) 5 L, Monocytes % (Manual) 6, Basophils % (Manual) 1, Metamyelocytes % 3 H, Myelocytes % 6 H, Diff Path Review May foll, Toxic Granulation 1+, Platelet Estimate ADEQUATE, RBC Morphology NORM C+C 08/02/21 05:23: Sodium 144, Potassium 3.8, Chloride 111 H, Carbon Dioxide 25.0, Anion Gap 8, BUN 81 H, Creatinine 2.34 H, Estim Creat Clear Calc 27.32, Est GFR (MDRD) Af Amer 34 L, Est GFR (MDRD) Non-Af 28 L, BUN/Creatinine Ratio 34.6 H, Glucose 190 H, Calcium 8.8 Micro: Microbiology 07/27/21 09:30 Blood Culture (Wb) - Anticubital Left Blood Culture - Final No growth in 5 days. 07/28/21 12:35 Blood Culture (Wb) - Anticubital Left Blood Culture - Preliminary No growth in 48 hours. 07/25/21 15:20 Blood Culture (Wb) - Pic Blood Culture - Final Staphylococcus aureus 07/24/21 21:55 Sputum, Expectorated/Coughed Gram Stain - Final 07/24/21 21:55 Sputum, Expectorated/Coughed Respiratory Culture - Final Staphylococcus aureus Streptococcus agalactiae (B) 07/24/21 08:55 Urine Catheter - Art Urine Culture - Final Culture exhibits no growth. 07/24/21 05:31 Blood Culture (Wb) - Anticubital Right Blood Culture - Final Staphylococcus aureus 07/24/21 05:20 Blood Culture (Wb) - Left Wrist Blood Culture - Final Staphylococcus aureus 07/24/21 08:10 Mucosa - Nasopharyngeal Respiratory Panel (PCR) - Final 07/24/21 08:20 Urine Catheter - Art Legionella Antigen - Final 07/24/21 08:20 Urine Catheter - Art Streptococcus pneumoniae Antigen (M - Final 07/24/21 04:44 Nasal Secretion SARS-CoV-2 Antigen (Rapid) - Final Radiography Diagnostic Testing: Radiology Impression Chest X-Ray 08/02/21 06:57 IMPRESSION: There is mild cardiomegaly with basilar infiltrates. There is a pacemaker on the left. Electronically Signed: Wilman Joseph MD at 7:23 EDT , Physical Exam Const alert, oriented x3, no apparent distress and average body habitus Constitutional Narrative: on nasal cannula Orientation / Consciousness: awake HEENT normocephalic, head/scalp atraumatic and hearing grossly normal bilaterally HEENT Narrative: Dry mucous membranes. Dentures not currently in. Eyes PERRL, EOMs intact bilaterally and conjunctivae normal Neck full ROM, supple and no JVD Chest inspection of chest normal Chest: symmetrical chest wall rise; Negative for crepitus Resp Auscultation: diminished lung sounds; Negative for rales, rhonchi or wheezes Cardio regular rate and regular rhythm; Negative for no murmurs, no rub or no gallops Cardio Narrative: distant Rhythm: abnormal rhythm irregularly irregular Heart Sounds: S1 normal and S2 normal; Negative for gallop, murmur or rub GI normal to inspection, nondistended, normoactive bowel sounds, soft to palpation and non-tender Extremity normal to inspection and no clubbing, cyanosis or edema Skin no rashes or lesions noted Neuro oriented x3 and CN's II-XII intact bilaterally Psych mental status grossly normal Charges/Coding Visit Charges Inpatient E&M: 34143 Subs Hosp L3
[2021-08-02 09:01] LABS: Bedside Glucose 174 mg/dL (74-106)
[2021-08-02] MEDS: Menthol/Lanolin/Calamine/Znox 113 GM Tube 1 APPLIC TOPICAL (09:28)
[2021-08-02] MEDS: Furosemide 40 MG/4 ML Vial IV ×2 (09:29→17:00)
[2021-08-02] MEDS: 0.9% Saline Lock 10 ML Syringe IV (09:29)
--- NOTE | 2021-08-02 10:25 | PCM.PN.HOSP ---
Subjective Subjective Continues to deny shortness of breath despite needing a 10 L of oxygen. He did wear his BiPAP last night. I was notified by nursing yesterday that every time he seemed to take a sip of water he would cough, given the concern of a slow recovery from respiratory status, will make him n.p.o. and have speech therapy evaluate him Objective Data Objective Data Vital Signs: Vital Signs Temp Pulse Resp BP Pulse Ox 97.7 F L 88 24 H 103/49 L 94 08/02/21 06:59 08/02/21 07:16 08/02/21 07:16 08/02/21 06:59 08/02/21 07:16 Oxygen Flow Rate (L/min) 9 Oxygen Delivery Method Nasal Cannula Weight: 251 lb 15.814 oz Body Mass Index (BMI) 33.4 Intake & Output: Intake and Output for Last 24 Hours 08/01/21 08/02/21 08/03/21 03:59 03:59 03:59 Intake Total 1875.67 / 1875.67 845.00 / 845.00 Output Total 2375 / 2375 2024 / 2024 750 / 750 Balance -499.33 / -499.33 -1180.00 / -1180.00 -750 / -750 Lab / Micro Data Result Diagrams: 08/02/21 05:23 08/02/21 05:23 Labs: Laboratory Results - last 24 hr 08/01/21 11:19: POC Glucose 134 H 08/01/21 12:08: APTT 50.3 H 08/01/21 16:29: POC Glucose 138 H 08/01/21 21:32: POC Glucose 178 H 08/02/21 05:23: WBC 17.5 H, RBC 3.79 L, Hgb 11.0 L, Hct 34.4 L, MCV 90.8, MCH 29.0, MCHC 32.0, RDW Std Deviation 55.4 H, RDW Coeff of Thang 16.8 H, Plt Count 221, MPV 9.9, Neut % (Auto) Not Reportable, Absolute Neuts (auto) 13.9 H, Absolute Lymphs (auto) 0.88, Total Counted 100, Neutrophils % (Manual) 77 H, Band Neutrophils % 2, Lymphocytes % (Manual) 5 L, Monocytes % (Manual) 6, Basophils % (Manual) 1, Metamyelocytes % 3 H, Myelocytes % 6 H, Diff Path Review May foll, Toxic Granulation 1+, Platelet Estimate ADEQUATE, RBC Morphology NORM C+C 08/02/21 05:23: Sodium 144, Potassium 3.8, Chloride 111 H, Carbon Dioxide 25.0, Anion Gap 8, BUN 81 H, Creatinine 2.34 H, Estim Creat Clear Calc 27.32, Est GFR (MDRD) Af Amer 34 L, Est GFR (MDRD) Non-Af 28 L, BUN/Creatinine Ratio 34.6 H, Glucose 190 H, Calcium 8.8 08/02/21 08:51: POC Glucose 174 H Micro: Microbiology 07/27/21 09:30 Blood Culture (Wb) - Anticubital Left Blood Culture - Final No growth in 5 days. 07/28/21 12:35 Blood Culture (Wb) - Anticubital Left Blood Culture - Preliminary No growth in 48 hours. 07/25/21 15:20 Blood Culture (Wb) - Pic Blood Culture - Final Staphylococcus aureus 07/24/21 21:55 Sputum, Expectorated/Coughed Gram Stain - Final 07/24/21 21:55 Sputum, Expectorated/Coughed Respiratory Culture - Final Staphylococcus aureus Streptococcus agalactiae (B) 07/24/21 08:55 Urine Catheter - Art Urine Culture - Final Culture exhibits no growth. 07/24/21 05:31 Blood Culture (Wb) - Anticubital Right Blood Culture - Final Staphylococcus aureus 07/24/21 05:20 Blood Culture (Wb) - Left Wrist Blood Culture - Final Staphylococcus aureus 07/24/21 08:10 Mucosa - Nasopharyngeal Respiratory Panel (PCR) - Final 07/24/21 08:20 Urine Catheter - Art Legionella Antigen - Final 07/24/21 08:20 Urine Catheter - Art Streptococcus pneumoniae Antigen (M - Final 07/24/21 04:44 Nasal Secretion SARS-CoV-2 Antigen (Rapid) - Final Radiography Diagnostic Testing: Radiology Impression Chest X-Ray 08/02/21 06:57 IMPRESSION: There is mild cardiomegaly with basilar infiltrates. There is a pacemaker on the left. Electronically Signed: Wilman Joseph MD at 7:23 EDT , Physical Exam Narrative Const alert, oriented x3 and no apparent distress General Appearance: cooperative HEENT normocephalic and dry oral mucous membranes Eyes PERRL, EOMs intact bilaterally and conjunctivae normal Neck supple and no JVD Resp normal respiratory effort, no retractions and no use of accessory muscles Auscultation: Diminished lung sounds; Negative for crackles, rales, wheezes Cardio regular rate, irregular rhythm, S1 normal heart sound, S2 normal heart sound and no murmurs GI soft to palpation, non-tender and non-distended; Negative for hepatosplenomegaly Extremity General Extremity: Negative for clubbing or cyanosis or edema Skin no rashes or lesions noted Neuro no focal motor deficits and no sensory deficits noted Psych affect normal Appearance: appropriate Assessment & Plan Assessment/Plan (1) DKA (diabetic ketoacidosis): QUALIFIERS: Diabetes mellitus type: type 2 Diabetes mellitus complication detail: without coma Qualified Code(s): E11.10 - Type 2 diabetes mellitus with ketoacidosis without coma (2) Community acquired pneumonia: QUALIFIERS: Laterality: unspecified laterality Qualified Code(s): J18.9 - Pneumonia, unspecified organism (3) MIRANDA (acute kidney injury): (4) Acute hypoxemic respiratory failure: PLAN: 1. Acute on chronic hypoxic respiratory failure and septic shock due to pneumonia and bacteremia ?Multifactorial including COPD with acute exacerbation, pulmonary fibrosis from recent COVID 19 pneumonia in January 2021. Patient was placed on noninvasive ventilation BiPAP admitted to the intensive care unit consultation placed to pulmonary medicine. Patient was placed on empiric antibiotic therapy pending culture results obtained on admission. Patient remains significantly at risk for possible intubation. Consult placed to pulmonary medicine Case discussed with Dr. Aj ?Present on admission patient was managed with IV fluid resuscitation as well as broad-spectrum antibiotic therapy. Cultures obtained on admission so far positive for gram-positive cocci final identification and sensitivities pending ?07/25/2021; patient has been weaned off BiPAP however remains on high flow oxygen -07/26/2021; Patient blood cultures positive for Staph aureus, repeat cultures obtained and if positive patient may need to undergo further evaluation with OBINNA. Initial TTE obtained did not mention any evidence of endocarditis. Consult has subsequently been placed to ID. Patient remains in ICU and is currently on Levophed ?07/27/2021: We will repeat blood cultures today, blood cultures on the are positive for may not need to do a OBINNA if cleared, he is off Levophed and is down to 3 to 4 L nasal cannula maintain his oxygen saturations ?07/28/2021: We will hold off on a OBINNA today unless we can get his oxygen requirements down from his 10 L that he is currently at, antibiotics narrowed to Ancef ?07/29/2021: His respiratory failure is likely now due to volume overload from sepsis protocol, he is 3 L positive. We have increased his IV Lasix to 3 times daily dosing per cardiology will have a low threshold for transferring back to the ICU given his borderline blood pressures in the setting of his septic shock. ?07/30/2021: Continue with IV Lasix, and inhalers. From on a fluid restriction yesterday he is now almost 4 L positive will see if we cannot take off any further IV fluids medications to help with his volume status. Blood cultures are normal and cleared fairly quickly. Currently on Ancef, sputum culture with MSSA and strep, blood cultures with MSSA ?07/31/2021: OBINNA was unremarkable for vegetations, cardiology recommends possible bronchoscopy. Hopefully we can also discontinue his heparin drip if okay with cardiology in order to minimize fluid and take ?08/01/2021: Continue to encourage BiPAP use as well as pulmonary toileting. Will DC his heparin drip and start him back on his Eliquis ?08/02/2021: Concern for aspiration given the report from nursing yesterday that he was coughing with thin liquids. Given his slow recovery despite adequate treatment silent aspiration could explain his ongoing oxygen requirements. We will make him n.p.o. pending speech evaluation 2. Diabetic ketoacidosis ?Managed with IV fluids, correction of electrolyte as well as insulin with every 4 BMPs ordered and subsequent adjustment made to therapy ?07/25/2021; anion gap down to 15. Patient insulin drip discontinued started on scheduled long-acting insulin with sliding scale coverage 07/26/2021; patient DKA resolved switch to long-acting insulin with subsequent adjustment made in view of significant hypoglycemia ?We will continue to monitor make adjustments to his insulin 08/02/2021: He was changed from budesonide to Solu-Medrol will have to follow his blood sugars closely and make insulin adjustments as necessary 3. Elevated troponin acute non-STEMI/acute on chronic systolic CHF?CAD/paroxysmal A. fib/HLD/sick sinus syndrome status post pacemaker ?Patient did present with chest pain but had no EKG changes consistent with acute ischemia. Admitted to intensive care unit serial cardiac enzymes ordered in addition to a 2D echo and consultation placed to cardiology. 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 Echo obtained demonstrated EF of 25 to 30% with severe LV systolic dysfunction with global LV hypokinesis ?Echo obtained on 03/10/2021 demonstrated EF of 50% ?07/26/2019: repeat echo obtained did reveal EF of 20 to 30% consistent with heart failure with reduced ejection fraction ?07/28/2021: Shortness of breath overnight with increased markings in his chest x-ray, will initiate him on Lasix ?07/30/2021: Continue to recommend BiPAP whenever he is sleeping and aggressive diuresis ?08/01/2021: We will decrease his Lasix to twice daily dosing given his creatinine bumped. We will stop his heparin ?08/02/2021: We will continue to monitor renal function, appreciate nephrology's assistance. His Lasix was decreased to twice daily yesterday and we did stop his heparin drip given the that it was providing a significant amount of volume. 4. Acute kidney injury ?Superimposed on chronic kidney disease stage IIIa. Patient baseline creatinine 1.41.5 creatinine on admission was 3.34. Currently on IV fluid with serial BMPs ordered ?07/25/2021 no improvement in kidney function -07/26/2021; creatinine down to 2.84, peaked at 3.6 ?07/29/2021: Creatinine down to 1.89 ?07/30/2021: Creatinine is 1.88 today will monitor and appreciate nephrology's assistance ?07/31/2021: Creatinine is elevated over 2 again today 5. Anemia - Secondary to chronic disorder monitoring H&H and transfuse if patient becomes symptomatic or hemoglobin falls below 7 6. Hypothyroidism - Patient is on levothyroxine home dose continued 7. BPH ?Patient is on Flomax as well as dutasteride; discontinue 8. Gout ?Patient is on allopurinol 9. GERD ?Patient's PPI 10. Class I obesity with BMI of 33.2 ?Weight loss advised 11. Obstructive sleep apnea ?PAP therapy at night DVT: Eliquis daily Charges/Coding Visit Charges Inpatient E&M: 83756 Subs Hosp L2
[2021-08-02] MEDS: APIXABAN 2.5 MG TABLET PO (10:54)
[2021-08-02] MEDS: Finasteride 5 MG Tablet PO (10:54)
[2021-08-02] MEDS: Aspirin E.C. 81 MG Tablet PO (10:54)
[2021-08-02] MEDS: guaiFENesin 1,200 MG Tablet 1200 MG PO ×2 (10:54→22:30)
[2021-08-02] MEDS: Metoprolol Tartrate 25 MG Tablet 12.5 MG PO ×2 (10:54→22:30)
[2021-08-02] MEDS: Allopurinol 300 MG Tablet PO (10:54)
[2021-08-02] MEDS: Pantoprazole Sodium 40 MG Tablet PO (10:54)
[2021-08-02] MEDS: Insulin Lispro 100 UNIT/ML INSULN.PEN SC ×6 (11:45→22:38)
[2021-08-02] MEDS: Cefazolin 2 GM in 0.9% Normal Saline 100 ML IV ×2 (11:49→22:31)
[2021-08-02 11:50] LABS: Bedside Glucose 263 mg/dL (74-106)
--- NOTE | 2021-08-02 14:00 | PCM.PN.REN ---
Subjective Subjective on bipap. sleepy Objective Data Objective Data Vital Signs: Vital Signs Temp Pulse Resp BP Pulse Ox 98.2 F 90 24 H 92/69 92 08/02/21 08:01 08/02/21 11:03 08/02/21 11:03 08/02/21 11:00 08/02/21 13:08 Oxygen Flow Rate (L/min) 12 Oxygen Delivery Method Nasal Cannula Weight: 114.3 kg Body Mass Index (BMI) 33.4 Intake & Output: Intake and Output for Last 24 Hours 07/31/21 08/01/21 08/02/21 23:59 23:59 23:59 Intake Total 1155.67 / 1985.67 1565.00 / 1565.00 350 / 350 Output Total 1950 / 2375 2450 / 2450 1350 / 1350 Balance -794.33 / -389.33 -885.00 / -885.00 -1000 / -1000 Lab / Micro Data Result Diagrams: 08/02/21 05:23 08/02/21 05:23 Labs: Laboratory Results - last 24 hr 08/01/21 16:29: POC Glucose 138 H 08/01/21 21:32: POC Glucose 178 H 08/02/21 05:23: WBC 17.5 H, RBC 3.79 L, Hgb 11.0 L, Hct 34.4 L, MCV 90.8, MCH 29.0, MCHC 32.0, RDW Std Deviation 55.4 H, RDW Coeff of Thang 16.8 H, Plt Count 221, MPV 9.9, Neut % (Auto) Not Reportable, Absolute Neuts (auto) 13.9 H, Absolute Lymphs (auto) 0.88, Total Counted 100, Neutrophils % (Manual) 77 H, Band Neutrophils % 2, Lymphocytes % (Manual) 5 L, Monocytes % (Manual) 6, Basophils % (Manual) 1, Metamyelocytes % 3 H, Myelocytes % 6 H, Diff Path Review May foll, Toxic Granulation 1+, Platelet Estimate ADEQUATE, RBC Morphology NORM C+C 08/02/21 05:23: Sodium 144, Potassium 3.8, Chloride 111 H, Carbon Dioxide 25.0, Anion Gap 8, BUN 81 H, Creatinine 2.34 H, Estim Creat Clear Calc 27.32, Est GFR (MDRD) Af Amer 34 L, Est GFR (MDRD) Non-Af 28 L, BUN/Creatinine Ratio 34.6 H, Glucose 190 H, Calcium 8.8 08/02/21 08:51: POC Glucose 174 H 08/02/21 11:44: POC Glucose 263 H Micro: Microbiology 07/28/21 12:35 Blood Culture (Wb) - Anticubital Left Blood Culture - Final No growth in 5 days. 07/27/21 09:30 Blood Culture (Wb) - Anticubital Left Blood Culture - Final No growth in 5 days. 07/25/21 15:20 Blood Culture (Wb) - Pic Blood Culture - Final Staphylococcus aureus 07/24/21 21:55 Sputum, Expectorated/Coughed Gram Stain - Final 07/24/21 21:55 Sputum, Expectorated/Coughed Respiratory Culture - Final Staphylococcus aureus Streptococcus agalactiae (B) 07/24/21 08:55 Urine Catheter - Art Urine Culture - Final Culture exhibits no growth. 07/24/21 05:31 Blood Culture (Wb) - Anticubital Right Blood Culture - Final Staphylococcus aureus 07/24/21 05:20 Blood Culture (Wb) - Left Wrist Blood Culture - Final Staphylococcus aureus 07/24/21 08:10 Mucosa - Nasopharyngeal Respiratory Panel (PCR) - Final 07/24/21 08:20 Urine Catheter - Art Legionella Antigen - Final 07/24/21 08:20 Urine Catheter - Art Streptococcus pneumoniae Antigen (M - Final 07/24/21 04:44 Nasal Secretion SARS-CoV-2 Antigen (Rapid) - Final Radiography Diagnostic Testing: Radiology Impression Chest X-Ray 08/02/21 06:57 IMPRESSION: There is mild cardiomegaly with basilar infiltrates. There is a pacemaker on the left. Electronically Signed: Wilman Joseph MD at 7:23 EDT , Physical Exam Narrative Alert awake oriented x 3 no obvious distress no pallor no icterus no JVD s1s2 no murmurs lungs clear abdomen soft no organomegaly no edema no cyanosis Assessment & Plan Assessment/Plan (1) MIRANDA (acute kidney injury): PLAN: -The patient has underlying chronic kidney disease with serum creatinine of 1.5 mg/dL at baseline. -MIRANDA was initially prerenal with fractional excretion of sodium of less than 1% on 07/24/2021. Prerenal MIRANDA has likely evolved to ATN. -Serum creatinine peaked at 3.60 mg/dL on 07/24/2021. -There has been a gradual improvement in renal function with creatinine coming down to 1.73 mg/dL on 07/28/2021. -However, serum creatinine increased again? related to diuresis. (2) DKA (diabetic ketoacidosis): QUALIFIERS: Diabetes mellitus type: type 2 Diabetes mellitus complication detail: without coma Qualified Code(s): E11.10 - Type 2 diabetes mellitus with ketoacidosis without coma PLAN: -Resolved. Management as per primary service. (3) Acute hypoxemic respiratory failure: PLAN: -He is being treated for possible pneumonia and fluid overload (4) CHF exacerbation: QUALIFIERS: Heart failure type: unspecified Qualified Code(s): I50.9 - Heart failure, unspecified PLAN: -Cardiology following.
[2021-08-02] MEDS: Tamsulosin HCl 0.4 MG Capsule PO (16:57)
[2021-08-02 17:06] LABS: Bedside Glucose 390 mg/dL (74-106)
--- NOTE | 2021-08-02 17:29 | PCM.PN.CARD ---
Subjective Subjective Improved overall since yesterday. Creatinine went up slightly. Lasix has been switched to p.o. Objective Data Vital Signs: Vital Signs Temp Pulse Resp BP Pulse Ox 98.0 F 89 33 H 122/70 H 89 08/02/21 15:00 08/02/21 17:00 08/02/21 17:00 08/02/21 17:00 08/02/21 17:00 Oxygen Flow Rate (L/min) 8 Oxygen Delivery Method Nasal Cannula Weight: 251 lb 15.814 oz Body Mass Index (BMI) 33.4 Intake & Output: Intake and Output for Last 24 Hours 07/31/21 08/01/21 08/02/21 23:59 23:59 23:59 Intake Total 1155.67 / 1985.67 1565.00 / 1565.00 460 / 460 Output Total 1950 / 2375 2450 / 2450 1350 / 1350 Balance -794.33 / -389.33 -885.00 / -885.00 -890 / -890 Lab / Micro Data Result Diagrams: 08/02/21 05:23 08/02/21 05:23 Labs: Laboratory Results - last 24 hr 08/01/21 21:32: POC Glucose 178 H 08/02/21 05:23: WBC 17.5 H, RBC 3.79 L, Hgb 11.0 L, Hct 34.4 L, MCV 90.8, MCH 29.0, MCHC 32.0, RDW Std Deviation 55.4 H, RDW Coeff of Thang 16.8 H, Plt Count 221, MPV 9.9, Neut % (Auto) Not Reportable, Absolute Neuts (auto) 13.9 H, Absolute Lymphs (auto) 0.88, Total Counted 100, Neutrophils % (Manual) 77 H, Band Neutrophils % 2, Lymphocytes % (Manual) 5 L, Monocytes % (Manual) 6, Basophils % (Manual) 1, Metamyelocytes % 3 H, Myelocytes % 6 H, Diff Path Review May foll, Toxic Granulation 1+, Platelet Estimate ADEQUATE, RBC Morphology NORM C+C 08/02/21 05:23: Sodium 144, Potassium 3.8, Chloride 111 H, Carbon Dioxide 25.0, Anion Gap 8, BUN 81 H, Creatinine 2.34 H, Estim Creat Clear Calc 27.32, Est GFR (MDRD) Af Amer 34 L, Est GFR (MDRD) Non-Af 28 L, BUN/Creatinine Ratio 34.6 H, Glucose 190 H, Calcium 8.8 08/02/21 08:51: POC Glucose 174 H 08/02/21 11:44: POC Glucose 263 H 08/02/21 16:53: POC Glucose 390 H Micro: Microbiology 07/28/21 12:35 Blood Culture (Wb) - Anticubital Left Blood Culture - Final No growth in 5 days. Cardiology Labs/Tests 08/02/21 05:23: WBC 17.5 H, RBC 3.79 L, Hgb 11.0 L, Hct 34.4 L, MCV 90.8, MCH 29.0, MCHC 32.0, Plt Count 221, MPV 9.9, Neut % (Auto) Not Reportable, Absolute Neuts (auto) 13.9 H, Total Counted 100, Neutrophils % (Manual) 77 H, Band Neutrophils % 2, Lymphocytes % (Manual) 5 L, Monocytes % (Manual) 6, Basophils % (Manual) 1, Metamyelocytes % 3 H, Myelocytes % 6 H 08/02/21 05:23: Sodium 144, Potassium 3.8, Chloride 111 H, Carbon Dioxide 25.0, Anion Gap 8, BUN 81 H, Creatinine 2.34 H, Est GFR (MDRD) Af Amer 34 L, Est GFR (MDRD) Non-Af 28 L, BUN/Creatinine Ratio 34.6 H, Glucose 190 H, Calcium 8.8 Rhythm: EKG: ECHO: Stress Test: Cardiac Cath: PCI: CT Surgery: Holter monitor: EPS: PPM: CXR: Chest CT Scan: Radiography Diagnostic Testing: Radiology Impression Chest X-Ray 08/02/21 06:57 IMPRESSION: There is mild cardiomegaly with basilar infiltrates. There is a pacemaker on the left. Electronically Signed: Wilman Joseph MD at 7:23 EDT , Physical Exam Const alert and oriented x3 Orientation / Consciousness: awake HEENT normocephalic Eyes no scleral icterus Resp normal respiratory effort Assessment & Plan Assessment/Plan (1) NSTEMI (non-ST elevated myocardial infarction): PLAN: Possibly type II MN. Being treated for pneumonia and MSSA bacteremia. OBINNA did not show any vegetations. Continue current management. Patient does have a drop in his EF. He does have kidney insufficiency as well. At some point coronary angiography could be considered. In view of his advanced age and multiple medical problems conservative treatment with medications may be reasonable as well. (2) Cardiomyopathy: QUALIFIERS: Cardiomyopathy type: unspecified Qualified Code(s): I42.9 - Cardiomyopathy, unspecified PLAN: Appears to be compensated from a cardiomyopathy standpoint. Continue present management (3) Paroxysmal atrial fibrillation: PLAN: Continue present management Charges/Coding Visit Charges Inpatient E&M: 53308 Subs Hosp L2
[2021-08-02 22:06] LABS: Bedside Glucose 433 mg/dL (74-106)
[2021-08-02] MEDS: Atorvastatin Calcium 20 MG Tablet PO (22:30)
[2021-08-03] VITALS (26 sets, daily range): BP systolic 95–127; BP diastolic 42–70; PULSE 73–98; RESP 18–30; TEMP 36.3–36.7; O2SAT 90–96
[2021-08-03] MEDS: Menthol/Lanolin/Calamine/Znox 113 GM Tube 1 APPLIC TOPICAL ×3 (02:37→21:27)
[2021-08-03] MEDS: Levothyroxine 125 MCG Tablet PO (05:17)
[2021-08-03] MEDS: 0.9% Saline Lock 10 ML Syringe IV ×2 (05:18→16:18)
[2021-08-03 06:07] LABS: Hematocrit 34.6 % (40-54); Hemoglobin 10.6 g/dL (13.0-16.5); Mean Corp Hgb Conc 30.6 g/dL (32-36); Mean Corpuscular Hgb 28.6 pg (27.0-32.0); Mean Corpuscular Volume 93.5 fL (80-94); Mean Platelet Vol. 10.4 fl (6.2-12.0); POSITIVE COUNT YES; POSITIVE MORPHOLOGY YES; Platelet Count 252 K/mm3 (150-450); RBC Distribution Width CV 16.9 % (11.6-14.6); RBC Distribution Width SD 57.3 fl (35.1-43.9); White Blood Count 16.3 K/mm3 (4.4-11.0)
[2021-08-03 06:11] LABS: Differential Indicated MANUAL DIFF
[2021-08-03 06:28] LABS: Anisocytosis 1+
[2021-08-03 06:31] LABS: Absolute Lymphocyte Count 1.47 X10^3/uL (0.83-4.51); Absolute Neutrophil Count 13.5 X10^3/uL (2.0-7.7); Neutrophil-Band 7 % (0-5); Neutrophil-Segmented 76 % (47-70); Total Cells Counted 100 (MANUAL DIFF)
[2021-08-03 06:32] LABS: Lymphocyte 9 % (19-41); Metamyelocyte 2 % (0-1); Monocyte 1 % (0-10); Myelocyte 4 % (0-0); Platelet Estimate ADEQUATE (ADEQ); Red Cell Morphology NORM C+C NORMAL (NORM C&C)
--- NOTE | 2021-08-03 06:34 | PCM.PN.HOSP ---
Subjective Subjective Patient overnight with continued significant oxygen requirements increased from even the day prior and ongoing purulent cough although he remains afebrile. Discussed presentation with cardiology and they noted that when he did have his echo he had significant amounts of purulent sputum noted during the procedure. They also feel that his current presentation is likely more related with his underlying pulmonary status as opposed to cardiac status. Following discussions with cardiology patient transition to oral Lasix and also fluid restriction liberalized to 1750 cc daily. Patient notes that he is very thirsty and is complaining of a dry mouth. He was transition to thickened liquids which he reports not caring for very much. Patient does report dyspnea sensation with activity but despite his status and increased fracture requirements on initial evaluation remain very eager for discharge to home. Through the day and through discussions with pulmonary medicine patient eventually requested evaluation by hospice services and transition to comfort care with set up of home to hospice which was initiated. Patient denies fevers, chills, nausea, emesis, abdominal pain, chest pain. Objective Data Objective Data Vital Signs: Vital Signs Temp Pulse Resp BP Pulse Ox 98.1 F 82 28 H 117/68 95 08/03/21 02:28 08/03/21 04:00 08/03/21 04:00 08/03/21 02:28 08/03/21 04:00 Oxygen Flow Rate (L/min) 9 Oxygen Delivery Method Bi-pap Weight: 247 lb 9.266 oz Body Mass Index (BMI) 33.4 Intake & Output: Intake and Output for Last 24 Hours 08/01/21 08/02/21 08/03/21 23:59 23:59 23:59 Intake Total 1565.00 / 1565.00 1530 / 1530 360 / 360 Output Total 2450 / 2450 2600 / 2600 400 / 400 Balance -885.00 / -885.00 -1070 / -1070 -40 / -40 Lab / Micro Data Result Diagrams: 08/03/21 05:27 08/03/21 05:27 Labs: Laboratory Results - last 24 hr 08/02/21 05:23: Absolute Neuts (auto) 13.9 H, Absolute Lymphs (auto) 0.88, Total Counted 100, Neutrophils % (Manual) 77 H, Band Neutrophils % 2, Lymphocytes % (Manual) 5 L, Monocytes % (Manual) 6, Basophils % (Manual) 1, Metamyelocytes % 3 H, Myelocytes % 6 H, Diff Path Review May foll, Toxic Granulation 1+, Platelet Estimate ADEQUATE, RBC Morphology NORM C+C 08/02/21 08:51: POC Glucose 174 H 08/02/21 11:44: POC Glucose 263 H 08/02/21 16:53: POC Glucose 390 H 08/02/21 21:51: POC Glucose 433 H 08/03/21 05:27: WBC 16.3 H, RBC 3.70 L, Hgb 10.6 L, Hct 34.6 L, MCV 93.5, MCH 28.6, MCHC 30.6 L, RDW Std Deviation 57.3 H, RDW Coeff of Thang 16.9 H, Plt Count 252, MPV 10.4, Neut % (Auto) Not Reportable, Absolute Neuts (auto) 13.5 H, Absolute Lymphs (auto) 1.47, Total Counted 100, Neutrophils % (Manual) 76 H, Band Neutrophils % 7 H, Lymphocytes % (Manual) 9 L, Monocytes % (Manual) 1, Metamyelocytes % 2 H, Myelocytes % 4 H, Diff Path Review May foll, Platelet Estimate ADEQUATE, RBC Morphology NORM C+C, Anisocytosis 1+ Micro: Microbiology 07/28/21 12:35 Blood Culture (Wb) - Anticubital Left Blood Culture - Final No growth in 5 days. 07/27/21 09:30 Blood Culture (Wb) - Anticubital Left Blood Culture - Final No growth in 5 days. 07/25/21 15:20 Blood Culture (Wb) - Pic Blood Culture - Final Staphylococcus aureus 07/24/21 21:55 Sputum, Expectorated/Coughed Gram Stain - Final 07/24/21 21:55 Sputum, Expectorated/Coughed Respiratory Culture - Final Staphylococcus aureus Streptococcus agalactiae (B) 07/24/21 08:55 Urine Catheter - Art Urine Culture - Final Culture exhibits no growth. 07/24/21 05:31 Blood Culture (Wb) - Anticubital Right Blood Culture - Final Staphylococcus aureus 07/24/21 05:20 Blood Culture (Wb) - Left Wrist Blood Culture - Final Staphylococcus aureus 07/24/21 08:10 Mucosa - Nasopharyngeal Respiratory Panel (PCR) - Final 07/24/21 08:20 Urine Catheter - Art Legionella Antigen - Final 07/24/21 08:20 Urine Catheter - Art Streptococcus pneumoniae Antigen (M - Final 07/24/21 04:44 Nasal Secretion SARS-CoV-2 Antigen (Rapid) - Final Radiography Diagnostic Testing: Radiology Impression Chest X-Ray 08/02/21 06:57 IMPRESSION: There is mild cardiomegaly with basilar infiltrates. There is a pacemaker on the left. Electronically Signed: Wilman Joseph MD at 7:23 EDT , Physical Exam Narrative Physical Examination: General: Awakens to stimuli, somewhat alert, oriented x 3, off BIPAP, on 15L NC, mild increased work of breathing, coughing intermittently with green appearing sputum. Skin: Normal color, normal turgor, no icterus, no cyanosis except occasional staged ecchymoses. HEENT: AT/NC, EOMI, PERRLA, dry MM. Lungs: Significantly diminished throughout, greater bases, mildly increased work of breathing but no distress evident at this time despite significant oxygen supplementation, no rales, ronchi or wheezing. Heart: Currently regular rate with regular rhythm; no gallop, rub audible. Abdomen: Soft, obese, NTTP, ND, distant normal BS. Extremities: No cyanosis, no clubbing, no edema. Neurological: Patient awake, alert, oriented as noted, cognitive function improved, now baseline intact; pupils equally reactive to light and accommodation, cranial nerves grossly normal, moving all 4 extremities, no focal deficits, strength improved, moderately to severely global decreased. Psychiatric: Affect appears fatigued, improved from initial evaluation upon admission but from discussion with staff worsened from overnight supplementation requirements no acute evidence of depressive or anxiety feelings. Assessment & Plan Assessment/Plan (1) MSSA bacteremia: PLAN: The patient is an 85 y/o M w/ PMHx: Diabetes mellitus type II, Former Tobacco use, CKD stage III unclear subtype, HTN, HLD, CAD s/p IN and CABG x 2, Hx Sick sinus syndrome s/p pacemaker placement, PAF, AROLDO, Chronic anemia, Chronic hypoxic respiratory failure secondary to underlying COPD, pulmonary fibrosis following with Dr. Song 87% on room air without any oxygen, Scl-70 Antibody Positive, Hx COVID illness who presents to the [facility] ED on 07/24/21 with history of ongoing chest discomfort described as a pressure, midsternal without radiation over the last 48 hours however became more constant the day prior with worsening associated dyspnea and upon going to bed the evening prior he forgot to connect his oxygen to his CPAP machine and awoke with significant dyspnea although he does also admit recent mildly productive cough but no fevers or chills. #1. Acute Septic Shock secondary to Acute on Chronic Hypoxic Respiratory Failure secondary to Acute MSSA Pneumonia and concurrent Acute on Chronic COPD Exacerbation with underlying Pulmonary Fibrosis and Recent COVID-19 Acute Viral illness: Patient was admitted to the ICU, shaft headman consulted and followed, SARS Covid rapid antigen negative, blood culture immediately with noted MSSA, respiratory panel negative, antigens negative, urine culture with no growth, sputum culture did grow streptococcal organism as well as staph aureus with most recent repeat blood cultures 07/28/2021 with no growth, antibiotics initially broadened to vancomycin and Zosyn eventually narrowed to IV Ancef per infectious disease, continued on IV steroid regimen, continue BiPAP nightly and attempting to de-escalate oxygen supplementation, OBINNA 07/31/2021 with EF 35%, moderately enlarged LA, no thrombus detected in the atrial appendage, mild MVI, mild TVI, bubble contrast study negative, ICD or pacer leads present. Despite aggressive interventions and continued evaluation per pulmonary, cardiology as well as infectious disease patient with significantly prolonged admission and eventually on 08/03/2021 patient elected to have evaluation by hospice with initiation of hospice at home with likely discharge 08/04/2021. From ID note recommended upon discharge consideration for 10 day course of linezolid 600 mg po BID. #2. Chest Pain w/ Acute NSTEMI, type II secondary to #1 demand: Patient upon presentation with elevated troponin 128 increased to 158 with no further trending beyond this, initially placed on a heparin drip with cardiology evaluation, follow-up echocardiogram as noted with reduced EF decreased from 50% 03/10/2021 down to 25 to 30% with severe LV systolic reduced function and global LV hypokinesis with unclear etiology specifically for patient cardiomyopathy. Given patient respiratory status and acute presentation any intervention was deferred. Cardiology consulted and followed. Maintained on aspirin, statin, initially held beta-av given blood pressures but this was resumed as well. #3. Acute DKA w/ Diabetes mellitus type II: Patient with initial evidence of DKA with initiation of insulin drip in the ED and continuation upon ICU transition with eventual closure once gap closed and transition to subcu long-acting insulin with short acting insulin overlap as well as ADA diet, nutrition consultation and insulin sliding scale. #4. MIRANDA on CKD stage III unclear subtype: Patient with underlying chronic kidney disease with baseline creatinine 1.5, initially prerenal with fractional excretion of sodium less than 1% on 07/24/2021 which likely evolved into ATN with serum creatinine peak 3.60 on 07/24/2021 with gradual improvement; however, certainly could be confounded by diuretic usage, 08/03/2021 BUN/creatinine 88/2.32, will transition IV Lasix to 40 mg p.o. twice daily per discussion with cardiology, continue renal function trending, nephrology consulted and following. #5. Acute on Chronic Diastolic CHF: Initially upon presentation placed on heparin drip, transitioned to eliquis given unstable for any cardiac intervention, initially held lasix secondary to MIRANDA; however, pulse dose administered during admission secondary to overload concerns with eventual 08/03/21 oral lasix transition to 40 mg BID. Continue asa, statin, BB now that BP improved, 03/10/2021 echocardiogram with EF 50%, post operative septal motion, trivial MVI, trivial TVI, poorly visualized AV, mild to moderate aortic stenosis, diastolic function indeterminate-->07/24/21 ECHO w/ EF 25 to 30%, severe LV systolic distant function with global LV hypokinesis, significantly changed from prior. 07/31/2021 OBINNA with confirmed findings with no evidence of any vegetations. #6. Carotid disease: 12/09/2020 carotid duplex with irregular calcific plaque proximal right internal and external carotid arteries 50- 69% stenosis right proximal ICA, less than 50% stenosis right external carotid, irregular calcific plaque proximal left internal carotid with 50 to 69% stenosis, less than 50% stenosis left external carotid, patent antegrade vertebrals bilaterally. Continue aspirin, statin, HTN regimen given BP improved through admission. #7. CAD: s/p CABG x 2 (06/23/2018 with a TANNER to the LAD and SVG to OM1), initially on heparin drip; however, transitioned back to eliquis given no catheterization intent, maintained on asa, statin, BB. #8. PAF: Currently maintained on BB, initially on heparin drip transitioned to eliquis. #9. Chronic anemia, macrocytic: Admission hemoglobin 13.8, baseline appears 10-11, 08/03/21 Hgb 10.6, stable, trend. #10. Hypertension: Initially held regimen given shock and MIRANDA, eventually placed on pulse dose IV lasix given concerns as noted, 08/03/21 transition back to oral lasix, maintained on metoprolol as well. #11. Hyperlipidemia: We will continue patient home statin therapy. #12. Hypothyroidism: We will continue patient home levothyroxine regimen. #13. BPH: We will continue patient on Flomax and dutasteride regimen. #14. Gout: We will continue patient home allopurinol regimen. #15. GERD: We will continue patient on PPI. #16. Depression and Anxiety: Not on regimen per current list, encourage continued outpatient follow-up. #16. AROLDO: BIPAP q HS. #17. Sick Sinus Syndrome: s/p pacemaker placement. #18. DVT prophylaxis: SCDs, initially held eliquis with transition to heparin drip, eventually transitioned back to eliquis given no procedure planned. #19. CODE status: Patient HCPOA is his who is present and living will is currently in place. 08/03/[address] Aj reviewed CODE status and current presentation and patient as well as family decision to have hospice consultation with planned discharge to home with hospice once set-up arranged with transition to DNR-CC status. Charges/Coding Visit Charges Inpatient E&M: 12547 [facility] Hosp L3
[2021-08-03 06:37] LABS: Anion Gap 7 (5-15); BUN 88 mg/dL (7-18); BUN/Creat Ratio 37.9 RATIO (10-20); Calcium,Total 9.1 mg/dL (8.5-10.1); Chloride 108 mmol/L (98-107); Creatinine, Serum 2.32 mg/dL (0.70-1.30); EST Glomerular Filtration Rate 29 mL/min (>60); Est Glom Filt Rate - Afr Amer 35 mL/min (>60); Estimated Creatinine Clearance 27.56 ml/min; Glucose 398 mg/dL (74-106); Potassium 3.8 mmol/L (3.5-5.1); Sodium Level 140 mmol/L (136-145)
--- NOTE | 2021-08-03 06:41 | PCM.PN.INT ---
Assessment & Plan Assessment/Plan (1) Sepsis: PLAN: RECOMMENDATIONS: 1. Continue to wean supplemental oxygen as tolerated for saturations greater than 90%. 2. Continue Pap therapy per home regimen with naps and nightly. 3. Diuresis as tolerated by hemodynamics and renal function. 4. Continue bronchodilators and steroids. 5. Continue systemic anticoagulation with Eliquis. IMPRESSIONS: 1. Acute on chronic hypoxemic respiratory failure secondary to MSSA pneumonia The patient presented to the hospital with worsening shortness of breath and chest pain. The patient has a known history of a severe mixed ventilatory defect with moderate reduction in diffusing capacity and chest imaging which revealed evidence of an evolving interstitial lung process. Prior 6-minute walk test revealed the need for 2 L/min of oxygen at rest and 4 L/min with exertion. The patient's medical history is also significant for coronary disease status post CABG. despite antimicrobial therapy to address his pneumonia, the patient's respiratory status still remains tenuous with increased oxygen demand from what is baseline for him. Attempts at aggressive diuresis have been limited by his hemodynamics and renal function. If the patient does not begin to make some sort of meaningful improvement over the next 24 to 48 hours, would next consider a CT chest to evaluate for progressive interstitial lung disease. Well bronchoscopy for clearance purposes certainly consideration, my concern is that the patient is too tenuous from a respiratory perspective to undergo any form of sedation related to a possible bronchoscopy and could likely decompensate clinically as a consequence. 2. Septic shock Resolved. The patient grew MSSA from multiple blood cultures. Clinical suspicion for pulmonary etiology. Transesophageal echocardiogram did not reveal any valvular vegetations. 3. Chest pain/NSTEMI Initially felt to be secondary to demand ischemia in the setting of numbers 1 and 2. However, the patient's surface echocardiogram demonstrated a significant reduction in ejection fraction along with severe LV systolic dysfunction, which was not present on prior echo. Cardiology is currently following to assist with medical management. 4. Diabetic ketoacidosis Resolved. Continue basal and sliding scale insulin coverage. 5. Acute on chronic kidney disease Most likely prerenal in etiology. Continue to monitor urine output. No current indication for renal replacement therapy. Nephrology is following. 6. Advanced age/paroxysmal atrial fibrillation/anemia/hypothyroidism/sick sinus syndrome/sleep apnea Complicates care, management, recovery and prognosis. Continue home medications as indicated. The patient can be continued on his home BiPAP with a pressure support of 12/7 centimeters of water. This note was generated with [employer] dictation software. It may contain incorrect words, spelling, and punctuation that were not noted in checking the note before signing. Subjective Subjective The patient was seen and examined at the bedside this morning. Events from the last 24 hours have been reviewed. The patient is currently afebrile, hemodynamically stable and maintaining appropriate oxygen saturations on BiPAP with an FiO2 requirement of 60%. The patient is currently documented to be overall net +1.2 L for the hospitalization. He remains on antimicrobials, scheduled Lasix, bronchodilators and IV steroids. Although the patient denies any resting shortness of breath this morning, his oxygen demand still remains out of proportion to his prehospitalization baseline requirement. Objective Data Objective Data The patient's most recent lab work, culture data and imaging studies have all been personally reviewed. Surface echocardiogram demonstrated a moderately dilated LV with an ejection fraction of 25 to 30% with severe LV systolic dysfunction and global LV hypokinesia. The RV was noted to be mildly dilated with mild RV systolic dysfunction. Vital Signs: Vital Signs Temp Pulse Resp BP Pulse Ox 98.1 F 82 28 H 117/68 95 08/03/21 02:28 08/03/21 04:00 08/03/21 04:00 08/03/21 02:28 08/03/21 04:00 Oxygen Flow Rate (L/min) 9 Oxygen Delivery Method Bi-pap Weight: 112.3 kg Body Mass Index (BMI) 33.4 Intake & Output: Intake and Output for Last 24 Hours 08/01/21 08/02/21 08/03/21 23:59 23:59 23:59 Intake Total 1565.00 / 1565.00 1530 / 1530 360 / 360 Output Total 2450 / 2450 2600 / 2600 400 / 400 Balance -885.00 / -885.00 -1070 / -1070 -40 / -40 Lab / Micro Data Attestation: I reviewed the patient's lab results. Result Diagrams: 08/03/21 05:27 08/03/21 05:27 Labs: Laboratory Results - last 24 hr 08/02/21 05:23: Absolute Neuts (auto) 13.9 H, Absolute Lymphs (auto) 0.88, Total Counted 100, Neutrophils % (Manual) 77 H, Band Neutrophils % 2, Lymphocytes % (Manual) 5 L, Monocytes % (Manual) 6, Basophils % (Manual) 1, Metamyelocytes % 3 H, Myelocytes % 6 H, Diff Path Review May foll, Toxic Granulation 1+, Platelet Estimate ADEQUATE, RBC Morphology NORM C+C 08/02/21 08:51: POC Glucose 174 H 08/02/21 11:44: POC Glucose 263 H 08/02/21 16:53: POC Glucose 390 H 08/02/21 21:51: POC Glucose 433 H 08/03/21 05:27: WBC 16.3 H, RBC 3.70 L, Hgb 10.6 L, Hct 34.6 L, MCV 93.5, MCH 28.6, MCHC 30.6 L, RDW Std Deviation 57.3 H, RDW Coeff of Thang 16.9 H, Plt Count 252, MPV 10.4, Neut % (Auto) Not Reportable, Absolute Neuts (auto) 13.5 H, Absolute Lymphs (auto) 1.47, Total Counted 100, Neutrophils % (Manual) 76 H, Band Neutrophils % 7 H, Lymphocytes % (Manual) 9 L, Monocytes % (Manual) 1, Metamyelocytes % 2 H, Myelocytes % 4 H, Diff Path Review May foll, Platelet Estimate ADEQUATE, RBC Morphology NORM C+C, Anisocytosis 1+ 08/03/21 05:27: Sodium 140, Potassium 3.8, Chloride 108 H, Carbon Dioxide 25.0, Anion Gap 7, BUN 88 H, Creatinine 2.32 H, Estim Creat Clear Calc 27.56, Est GFR (MDRD) Af Amer 35 L, Est GFR (MDRD) Non-Af 29 L, BUN/Creatinine Ratio 37.9 H, Glucose 398 H, Calcium 9.1 Micro: Microbiology 07/28/21 12:35 Blood Culture (Wb) - Anticubital Left Blood Culture - Final No growth in 5 days. 07/27/21 09:30 Blood Culture (Wb) - Anticubital Left Blood Culture - Final No growth in 5 days. 07/25/21 15:20 Blood Culture (Wb) - Pic Blood Culture - Final Staphylococcus aureus 07/24/21 21:55 Sputum, Expectorated/Coughed Gram Stain - Final 07/24/21 21:55 Sputum, Expectorated/Coughed Respiratory Culture - Final Staphylococcus aureus Streptococcus agalactiae (B) 07/24/21 08:55 Urine Catheter - Art Urine Culture - Final Culture exhibits no growth. 07/24/21 05:31 Blood Culture (Wb) - Anticubital Right Blood Culture - Final Staphylococcus aureus 07/24/21 05:20 Blood Culture (Wb) - Left Wrist Blood Culture - Final Staphylococcus aureus 07/24/21 08:10 Mucosa - Nasopharyngeal Respiratory Panel (PCR) - Final 07/24/21 08:20 Urine Catheter - Art Legionella Antigen - Final 07/24/21 08:20 Urine Catheter - Art Streptococcus pneumoniae Antigen (M - Final 07/24/21 04:44 Nasal Secretion SARS-CoV-2 Antigen (Rapid) - Final Radiography Diagnostic Testing: Radiology Impression Chest X-Ray 08/02/21 06:57 IMPRESSION: There is mild cardiomegaly with basilar infiltrates. There is a pacemaker on the left. Electronically Signed: Wilman Joseph MD at 7:23 EDT , Physical Exam Const alert and no apparent distress General Appearance: cooperative and on BiPAP Nutritional Appearance: obese HEENT normocephalic and head/scalp atraumatic Eyes PERRL, EOMs intact bilaterally and conjunctivae normal Neck supple General: trachea midline Resp Auscultation: diminished lung sounds Cardio S1 normal heart sound and S2 normal heart sound Rhythm: abnormal rhythm Heart Sounds: Negative for murmur GI normal to inspection, nondistended, normoactive bowel sounds Extremity no clubbing, cyanosis or edema Skin no rashes or lesions noted Neuro CN's II-XII intact bilaterally, moves all extremities and no focal motor deficits Psych cooperative and affect normal Charges/Coding Visit Charges Inpatient E&M: 58719 [facility] Hosp L3
[2021-08-03] MEDS: Ipratropium/Albuterol Sulfate 3 ML AMPUL.NEB INHALATION ×4 (07:05→20:02)
[2021-08-03 08:36] LABS: Bedside Glucose 378 mg/dL (74-106)
--- NOTE | 2021-08-03 08:36 | PN.CARD_ITS ---
Subjective Subjective The patient is awake and alert. He denies any ongoing chest discomfort. He continues with his cough which is productive with thick sputum. He continues requiring O2 supplements (10 L) by nasal cannula. Objective Data Vital Signs: Vital Signs Temp Pulse Resp BP Pulse Ox 98.1 F 89 21 H 117/68 91 08/03/21 02:28 08/03/21 07:05 08/03/21 07:05 08/03/21 02:28 08/03/21 07:05 Oxygen Flow Rate (L/min) 10 Oxygen Delivery Method Nasal Cannula Weight: 247 lb 9.266 oz Body Mass Index (BMI) 33.4 Intake & Output: Intake and Output for Last 24 Hours 08/01/21 08/02/21 08/03/21 23:59 23:59 23:59 Intake Total 1565.00 / 1565.00 1530 / 1530 360 / 360 Output Total 2450 / 2450 2600 / 2600 400 / 400 Balance -885.00 / -885.00 -1070 / -1070 -40 / -40 Lab / Micro Data Result Diagrams: 08/03/21 05:27 08/03/21 05:27 Labs: Laboratory Results - last 24 hr 08/02/21 08:51: POC Glucose 174 H 08/02/21 11:44: POC Glucose 263 H 08/02/21 16:53: POC Glucose 390 H 08/02/21 21:51: POC Glucose 433 H 08/03/21 05:27: WBC 16.3 H, RBC 3.70 L, Hgb 10.6 L, Hct 34.6 L, MCV 93.5, MCH 28.6, MCHC 30.6 L, RDW Std Deviation 57.3 H, RDW Coeff of Thang 16.9 H, Plt Count 252, MPV 10.4, Neut % (Auto) Not Reportable, Absolute Neuts (auto) 13.5 H, Absolute Lymphs (auto) 1.47, Total Counted 100, Neutrophils % (Manual) 76 H, Band Neutrophils % 7 H, Lymphocytes % (Manual) 9 L, Monocytes % (Manual) 1, Metamyelocytes % 2 H, Myelocytes % 4 H, Diff Path Review May , Platelet Estimate ADEQUATE, RBC Morphology NORM C+C, Anisocytosis 1+ 08/03/21 05:27: Sodium 140, Potassium 3.8, Chloride 108 H, Carbon Dioxide 25.0, Anion Gap 7, BUN 88 H, Creatinine 2.32 H, Estim Creat Clear Calc 27.56, Est GFR (MDRD) Af Amer 35 L, Est GFR (MDRD) Non-Af 29 L, BUN/Creatinine Ratio 37.9 H, Glucose 398 H, Calcium 9.1 08/03/21 08:31: POC Glucose 378 H Micro: Microbiology 07/28/21 12:35 Blood Culture (Wb) - Anticubital Left Blood Culture - Final No growth in 5 days. Cardiology Labs/Tests 08/03/21 05:27: WBC 16.3 H, RBC 3.70 L, Hgb 10.6 L, Hct 34.6 L, MCV 93.5, MCH 28.6, MCHC 30.6 L, Plt Count 252, MPV 10.4, Neut % (Auto) Not Reportable, Absolute Neuts (auto) 13.5 H, Total Counted 100, Neutrophils % (Manual) 76 H, Band Neutrophils % 7 H, Lymphocytes % (Manual) 9 L, Monocytes % (Manual) 1, Metamyelocytes % 2 H, Myelocytes % 4 H 08/03/21 05:27: Sodium 140, Potassium 3.8, Chloride 108 H, Carbon Dioxide 25.0, Anion Gap 7, BUN 88 H, Creatinine 2.32 H, Est GFR (MDRD) Af Amer 35 L, Est GFR (MDRD) Non-Af 29 L, BUN/Creatinine Ratio 37.9 H, Glucose 398 H, Calcium 9.1 Rhythm: Sinus rhythm; PVCs; electronic atrial paced beats Physical Exam Const alert, oriented x3, no apparent distress and average body habitus Constitutional Narrative: on Bipap Orientation / Consciousness: awake HEENT normocephalic, head/scalp atraumatic, hearing grossly normal bilaterally and moist oral mucous membranes Eyes PERRL, EOMs intact bilaterally, conjunctivae normal and no scleral icterus Neck full ROM, supple and no JVD Resp normal respiratory effort Auscultation: rhonchi throughout (Scattered) Cardio regular rate and regular rhythm; Negative for no murmurs, no rub or no gallops Cardio Narrative: Irregular rhythm Rhythm: abnormal rhythm irregularly irregular Heart Sounds: S1 normal and S2 normal GI normal to inspection, nondistended, normoactive bowel sounds, soft to palpation and non-tender Extremity normal to inspection, no clubbing, cyanosis or edema and no pedal edema General Extremity: edema right lower extremity trace Skin no rashes or lesions noted Neuro oriented x3 and CN's II-XII intact bilaterally Psych mental status grossly normal Assessment & Plan Assessment/Plan (1) 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 transplanted heart: [place] heart Qualified Code(s): I25.10 - Atherosclerotic heart disease of [place] coronary artery without angina pectoris PLAN: At the present time the patient appears to be without any acute symptoms of underlying CAD. He will continue medical management as best as possible. As previously discussed he does not appear to be an ideal candidate at this time based upon his comorbidities/objective findings for further evaluation of his coronary/graft status in the cardiac catheterization laboratory. (2) NSTEMI (non-ST elevated myocardial infarction): PLAN: He does have abnormal cardiac enzymes. Based upon his overall status this may be related to a type II event secondary to his underlying pulmonary disease process, sepsis process, hypoxemia, etc. At the present time he will continue cardiovascular medical therapy as best as tolerated. (3) Cardiomyopathy: QUALIFIERS: Cardiomyopathy type: unspecified Qualified Code(s): I42.9 - Cardiomyopathy, unspecified PLAN: His overall LV systolic function is depressed compared to previous studies. It is unclear whether this is related to progression of his underlying CAD and/or concerns with his bypass grafts versus a noncardiac condition secondary to his pulmonary condition/sepsis/hypoxemia, etc. At the moment he is continuing medical therapy as he does not appear to be an ideal candidate for further invasive cardiovascular evaluation at this time based upon his comorbidities and other objective findings. (4) Paroxysmal atrial fibrillation: PLAN: His rhythm appears to be remaining sinus rhythm with underlying PVCs as well as intermittent electronic atrial paced rhythm. He will continue medical therapy which does include his anticoagulant therapy. (5) Hyperlipidemia: QUALIFIERS: Hyperlipidemia type: unspecified Qualified Code(s): E78.5 - Hyperlipidemia, unspecified PLAN: He will continue risk factor evaluation care as best as possible. (6) MIRANDA (acute kidney injury): PLAN: His creatinine level remains somewhat elevated possibly secondary to his multiple comorbidities and volume shifts. He will continue medical therapy with adjustment of his medications and his vol ume status as deemed appropriate at the time with monitoring of his renal function. (7) Community acquired pneumonia: QUALIFIERS: Laterality: unspecified laterality Qualified Code(s): J18.9 - Pneumonia, unspecified organism PLAN: He continues with his underlying acute pulmonary disease process superimposed upon chronic pulmonary related issues. He continues to require O2 nasal cannula at 10 L. He is continuing evaluation care by internal medicine, pulmonology, and respiratory therapy. (8) MSSA bacteremia: PLAN: He did undergo further cardiovascular evaluation with OBINNA. Based upon the findings there was no obvious evidence thought compatible with classic findings on echocardiographic studies compatible with infectious endocarditis. He will continue evaluation and care of his underlying infectious disease proces s by internal medicine, pulmonology, and infectious disease as deemed appropriate. Addt'l Comments Overall, from a cardiac process, the patient will continue medical supportive therapy. His case has been discussed and reviewed with Dr. Francois and Dr. Aj. This note was generated using a voice recognition system and there may be incorrect words, spelling or punctuation that were not noted when reviewing the office note prior to saving.
[2021-08-03] MEDS: Insulin Lispro 100 UNIT/ML INSULN.PEN SC ×6 (08:57→21:36)
[2021-08-03] MEDS: guaiFENesin 1,200 MG Tablet 1200 MG PO ×2 (08:59→21:11)
[2021-08-03] MEDS: Pantoprazole Sodium 40 MG Tablet PO (08:59)
[2021-08-03] MEDS: Furosemide 40 MG Tablet PO ×2 (08:59→16:59)
[2021-08-03] MEDS: Aspirin E.C. 81 MG Tablet PO (08:59)
[2021-08-03] MEDS: Allopurinol 300 MG Tablet PO (08:59)
[2021-08-03] MEDS: Metoprolol Tartrate 25 MG Tablet 12.5 MG PO ×2 (08:59→21:10)
[2021-08-03] MEDS: APIXABAN 2.5 MG TABLET PO (10:00)
[2021-08-03] MEDS: Finasteride 5 MG Tablet PO (10:00)
[2021-08-03 11:41] LABS: Bedside Glucose 456 mg/dL (74-106)
[2021-08-03] MEDS: Cefazolin 2 GM in 0.9% Normal Saline 100 ML IV ×2 (12:19→23:55)
[2021-08-03] MEDS: Acetaminophen 325 MG Tablet 650 MG PO ×2 (12:20→21:12)
[2021-08-03] MEDS: Insulin Lispro 100 UNIT/ML INSULN.PEN 20 UNIT SC (12:20)
--- NOTE | 2021-08-03 12:27 | CASEMGMT ---
Physician spoke with patient and his and they would like to talk with Hospice. Patient would like to go home on Hospice. SW met with patient and his . Introduced self and role at [facility]. SW explained how the process works. SW will make a referral and someone from Hospice will contact patient's to set up an appt. They thanked SW for the information. SW called Hospice with referral and also faxed referral. Edie MITCHELL
--- NOTE | 2021-08-03 13:32 | PCM.PN.ID ---
Physical Exam Narrative Feeling better, no fever, breathing ok Const alert and no apparent distress General Appearance: cooperative Resp clear to auscultation bilaterally Auscultation: diminished lung sounds Cardio regular rate and regular rhythm GI soft to palpation, non-tender and non-distended Skin no rashes or lesions noted ID ID: Route of nutrition/ use of supplements: [] Nutritional Intake: [] IV Site: [] Art Catheter: [] Assessment & Plan Assessment/Plan (1) MIRANDA (acute kidney injury): (2) Severe sepsis: (3) MSSA bacteremia: PLAN: septic shock due to mssa bacteremia, suspected pneumonia as source. Repeat bcx neg so far. OBINNA showed no veg. Cont cefazolin while inpatient. Has had covid vaccine x3. Pt now DNR-CC, interested in hospice. Would have option of leaving with 10 days po linezolid 600mg bid at discharge (keflex would be another, cheaper option). Will follow
--- NOTE | 2021-08-03 13:33 | PCM.PN.REN ---
Objective Data Objective Data Vital Signs: Vital Signs Temp Pulse Resp BP Pulse Ox 98.0 F 96 29 H 115/59 L 90 08/03/21 10:00 08/03/21 10:08 08/03/21 10:08 08/03/21 10:00 08/03/21 10:56 Oxygen Flow Rate (L/min) 15 Oxygen Delivery Method Nasal Cannula Weight: 112.3 kg Body Mass Index (BMI) 33.4 Intake & Output: Intake and Output for Last 24 Hours 08/01/21 08/02/21 08/03/21 23:59 23:59 23:59 Intake Total 1565.00 / 1565.00 1530 / 1530 1090 / 1090 Output Total 2450 / 2450 2600 / 2600 600 / 600 Balance -885.00 / -885.00 -1070 / -1070 490 / 490 Lab / Micro Data Result Diagrams: 08/03/21 05:27 08/03/21 05:27 Labs: Laboratory Results - last 24 hr 08/02/21 16:53: POC Glucose 390 H 08/02/21 21:51: POC Glucose 433 H 08/03/21 05:27: WBC 16.3 H, RBC 3.70 L, Hgb 10.6 L, Hct 34.6 L, MCV 93.5, MCH 28.6, MCHC 30.6 L, RDW Std Deviation 57.3 H, RDW Coeff of Thang 16.9 H, Plt Count 252, MPV 10.4, Neut % (Auto) Not Reportable, Absolute Neuts (auto) 13.5 H, Absolute Lymphs (auto) 1.47, Total Counted 100, Neutrophils % (Manual) 76 H, Band Neutrophils % 7 H, Lymphocytes % (Manual) 9 L, Monocytes % (Manual) 1, Metamyelocytes % 2 H, Myelocytes % 4 H, Diff Path Review May , Platelet Estimate ADEQUATE, RBC Morphology NORM C+C, Anisocytosis 1+ 08/03/21 05:27: Sodium 140, Potassium 3.8, Chloride 108 H, Carbon Dioxide 25.0, Anion Gap 7, BUN 88 H, Creatinine 2.32 H, Estim Creat Clear Calc 27.56, Est GFR (MDRD) Af Amer 35 L, Est GFR (MDRD) Non-Af 29 L, BUN/Creatinine Ratio 37.9 H, Glucose 398 H, Calcium 9.1 08/03/21 08:31: POC Glucose 378 H 08/03/21 11:33: POC Glucose 456 H* Micro: Microbiology 07/28/21 12:35 Blood Culture (Wb) - Anticubital Left Blood Culture - Final No growth in 5 days. 07/27/21 09:30 Blood Culture (Wb) - Anticubital Left Blood Culture - Final No growth in 5 days. 07/25/21 15:20 Blood Culture (Wb) - Pic Blood Culture - Final Staphylococcus aureus 07/24/21 21:55 Sputum, Expectorated/Coughed Gram Stain - Final 07/24/21 21:55 Sputum, Expectorated/Coughed Respiratory Culture - Final Staphylococcus aureus Streptococcus agalactiae (B) 07/24/21 08:55 Urine Catheter - Art Urine Culture - Final Culture exhibits no growth. 07/24/21 05:31 Blood Culture (Wb) - Anticubital Right Blood Culture - Final Staphylococcus aureus 07/24/21 05:20 Blood Culture (Wb) - Left Wrist Blood Culture - Final Staphylococcus aureus 07/24/21 08:10 Mucosa - Nasopharyngeal Respiratory Panel (PCR) - Final 07/24/21 08:20 Urine Catheter - Art Legionella Antigen - Final 07/24/21 08:20 Urine Catheter - Art Streptococcus pneumoniae Antigen (M - Final 07/24/21 04:44 Nasal Secretion SARS-CoV-2 Antigen (Rapid) - Final Physical Exam Narrative Alert awake oriented x 3 no obvious distress no pallor no icterus no JVD s1s2 no murmurs lungs clear abdomen soft no organomegaly no edema no cyanosis Assessment & Plan Assessment/Plan (1) MIRANDA (acute kidney injury): PLAN: -The patient has underlying chronic kidney disease with serum creatinine of 1.5 mg/dL at baseline. -MIRANDA was initially prerenal with fractional excretion of sodium of less than 1% on 07/24/2021. Prerenal MIRANDA has likely evolved to ATN. -Serum creatinine peaked at 3.60 mg/dL on 07/24/2021. -There has been a gradual improvement in renal function with creatinine coming down to 2.32 mg/dL serum creatinine increased from baseline due to diuresis. (2) DKA (diabetic ketoacidosis): QUALIFIERS: Diabetes mellitus type: type 2 Diabetes mellitus complication detail: without coma Qualified Code(s): E11.10 - Type 2 diabetes mellitus with ketoacidosis without coma PLAN: -Resolved. Management as per primary service. (3) Acute hypoxemic respiratory failure: PLAN: -He is being treated for possible pneumonia and fluid overload (4) CHF exacerbation: QUALIFIERS: Heart failure type: unspecified Qualified Code(s): I50.9 - Heart failure, unspecified PLAN: -Cardiology following.
--- NOTE | 2021-08-03 13:51 | NURSING ---
Taking over care at this time, report given by Krishan Perez RN
--- NOTE | 2021-08-03 14:10 | CASEMGMT ---
SW called Hospice and inquired if an appt has been set up yet. SW was told a message was left for patient's at 130 and they are waiting on her to call back. SW checked in patient's room and patient's was not present. Edie Hoff MOULDER OPERATOR STEPHEN
[2021-08-03 14:32] LABS: Pathologist Review Reviewed
[2021-08-03 14:41] LABS: Pathologist Review Reviewed
[2021-08-03 14:43] LABS: Pathologist Review Reviewed
[2021-08-03 16:20] LABS: Bedside Glucose 419 mg/dL (74-106)
[2021-08-03] MEDS: Tamsulosin HCl 0.4 MG Capsule PO (16:59)
--- NOTE | 2021-08-03 19:02 | NURSING ---
Reviewed and agreed on all charting with Stanley Lawson RN
[2021-08-03] MEDS: Atorvastatin Calcium 20 MG Tablet PO (21:11)
[2021-08-04] VITALS (14 sets, daily range): BP systolic 95–130; BP diastolic 42–71; PULSE 79–90; RESP 20–27; TEMP 36.4–37.1; O2SAT 91–97
[2021-08-04 01:16] LABS: Bedside Glucose 461 mg/dL (74-106)
--- NOTE | 2021-08-04 06:27 | PCM.PN.INT ---
Assessment & Plan Assessment/Plan (1) Sepsis: PLAN: RECOMMENDATIONS: 1. Continue to wean supplemental oxygen as tolerated for saturations greater than 90%. 2. Continue Pap therapy per home regimen with naps and nightly. 3. Diuresis as tolerated by hemodynamics and renal function. 4. Continue bronchodilators and steroids. 5. Continue systemic anticoagulation with Eliquis. 6. Tentative plans for discharge later today with home hospice. IMPRESSIONS: 1. Acute on chronic hypoxemic respiratory failure secondary to MSSA pneumonia The patient presented to the hospital with worsening shortness of breath and chest pain. The patient has a known history of a severe mixed ventilatory defect with moderate reduction in diffusing capacity and chest imaging which revealed evidence of an evolving interstitial lung process. Prior 6-minute walk test revealed the need for 2 L/min of oxygen at rest and 4 L/min with exertion. The patient's medical history is also significant for coronary disease status post CABG. despite antimicrobial therapy to address his pneumonia, the patient's respiratory status still remains tenuous with increased oxygen demand from what is baseline for him. Attempts at aggressive diuresis have been limited by his hemodynamics and renal function. Given the patient's lack of clinical improvement, following a goals of care discussion with the patient and his family on August 03, he elected to pursue the initiation of comfort care measures. There are tentative plans for the patient be discharged home today with home hospice care services. 2. Septic shock Resolved. The patient grew MSSA from multiple blood cultures. Clinical suspicion for pulmonary etiology. Transesophageal echocardiogram did not reveal any valvular vegetations. 3. Chest pain/NSTEMI Initially felt to be secondary to demand ischemia in the setting of numbers 1 and 2. However, the patient's surface echocardiogram demonstrated a significant reduction in ejection fraction along with severe LV systolic dysfunction, which was not present on prior echo. Cardiology is currently following to assist with medical management. 4. Diabetic ketoacidosis Resolved. Continue basal and sliding scale insulin coverage. 5. Acute on chronic kidney disease Most likely prerenal in etiology. Continue to monitor urine output. No current indication for renal replacement therapy. Nephrology is following. 6. Advanced age/paroxysmal atrial fibrillation/anemia/hypothyroidism/sick sinus syndrome/sleep apnea Complicates care, management, recovery and prognosis. Continue home medications as indicated. The patient can be continued on his home BiPAP with a pressure support of 12/7 centimeters of water. This note was generated with Dragon dictation software. It may contain incorrect words, spelling, and punctuation that were not noted in checking the note before signing. Subjective Subjective The patient was seen and examined at the bedside this morning. Events from the last 24 hours have been reviewed. The patient is currently afebrile, hemodynamically stable and maintaining appropriate oxygen saturations on 15 L/min high flow nasal cannula. There are tentative plans for the patient to be discharged home today with home hospice. Objective Data Objective Data The patient's most recent lab work, culture data and imaging studies have all been personally reviewed. Surface echocardiogram demonstrated a moderately dilated LV with an ejection fraction of 25 to 30% with severe LV systolic dysfunction and global LV hypokinesia. The RV was noted to be mildly dilated with mild RV systolic dysfunction. Vital Signs: Vital Signs Temp Pulse Resp BP Pulse Ox 98.1 F 82 23 H 118/65 92 08/04/21 04:00 08/04/21 04:00 08/04/21 04:00 08/04/21 04:00 08/04/21 04:00 Oxygen Flow Rate (L/min) 15 Oxygen Delivery Method High Flow Weight: 114.1 kg Body Mass Index (BMI) 33.4 Intake & Output: Intake and Output for Last 24 Hours 08/02/21 08/03/21 08/04/21 23:59 23:59 23:59 Intake Total 1530 / 1530 1390 / 1390 110 / 110 Output Total 2600 / 2600 900 / 900 Balance -1070 / -1070 490 / 490 110 / 110 Lab / Micro Data Attestation: I reviewed the patient's lab results. Result Diagrams: 08/03/21 05:27 08/03/21 05:27 Labs: Laboratory Results - last 24 hr 07/31/21 05:20: Diff Path Review Reviewed 08/02/21 05:23: Diff Path Review Reviewed 08/03/21 05:27: Absolute Neuts (auto) 13.5 H, Absolute Lymphs (auto) 1.47, Total Counted 100, Neutrophils % (Manual) 76 H, Band Neutrophils % 7 H, Lymphocytes % (Manual) 9 L, Monocytes % (Manual) 1, Metamyelocytes % 2 H, Myelocytes % 4 H, Diff Path Review Reviewed, Platelet Estimate ADEQUATE, RBC Morphology NORM C+C, Anisocytosis 1+ 08/03/21 05:27: Sodium 140, Potassium 3.8, Chloride 108 H, Carbon Dioxide 25.0, Anion Gap 7, BUN 88 H, Creatinine 2.32 H, Estim Creat Clear Calc 27.56, Est GFR (MDRD) Af Amer 35 L, Est GFR (MDRD) Non-Af 29 L, BUN/Creatinine Ratio 37.9 H, Glucose 398 H, Calcium 9.1 08/03/21 08:31: POC Glucose 378 H 08/03/21 11:33: POC Glucose 456 H* 08/03/21 16:11: POC Glucose 419 H 08/03/21 21:26: POC Glucose 461 H* Micro: Microbiology 07/28/21 12:35 Blood Culture (Wb) - Anticubital Left Blood Culture - Final No growth in 5 days. 07/27/21 09:30 Blood Culture (Wb) - Anticubital Left Blood Culture - Final No growth in 5 days. 07/25/21 15:20 Blood Culture (Wb) - Pic Blood Culture - Final Staphylococcus aureus 07/24/21 21:55 Sputum, Expectorated/Coughed Gram Stain - Final 07/24/21 21:55 Sputum, Expectorated/Coughed Respiratory Culture - Final Staphylococcus aureus Streptococcus agalactiae (B) 07/24/21 08:55 Urine Catheter - Art Urine Culture - Final Culture exhibits no growth. 07/24/21 05:31 Blood Culture (Wb) - Anticubital Right Blood Culture - Final Staphylococcus aureus 07/24/21 05:20 Blood Culture (Wb) - Left Wrist Blood Culture - Final Staphylococcus aureus 07/24/21 08:10 Mucosa - Nasopharyngeal Respiratory Panel (PCR) - Final 07/24/21 08:20 Urine Catheter - Art Legionella Antigen - Final 07/24/21 08:20 Urine Catheter - Art Streptococcus pneumoniae Antigen (M - Final 07/24/21 04:44 Nasal Secretion SARS-CoV-2 Antigen (Rapid) - Final Physical Exam Const alert and no apparent distress General Appearance: cooperative Nutritional Appearance: obese HEENT normocephalic and head/scalp atraumatic Eyes PERRL, EOMs intact bilaterally and conjunctivae normal Neck supple General: trachea midline Resp Effort and Inspection: tachypneic Auscultation: diminished lung sounds Cardio S1 normal heart sound and S2 normal heart sound Rhythm: abnormal rhythm Heart Sounds: Negative for murmur GI normal to inspection, nondistended, normoactive bowel sounds Extremity no clubbing, cyanosis or edema Skin no rashes or lesions noted Neuro CN's II-XII intact bilaterally, moves all extremities and no focal motor deficits Psych cooperative and affect normal Charges/Coding Visit Charges Inpatient E&M: 18518 Subs Hosp L2
[2021-08-04] MEDS: Ipratropium/Albuterol Sulfate 3 ML AMPUL.NEB INHALATION ×3 (06:44→14:32)
[2021-08-04 08:11] LABS: Bedside Glucose 395 mg/dL (74-106)
--- NOTE | 2021-08-04 08:42 | CASEMGMT ---
CRISTIANA called Hospice and spoke with Silvano. They will be meeting with patient and his today at noon. Edie Hoff INCIDENT RESPONSE ENGINEER STEPHEN
[2021-08-04] MEDS: Insulin Lispro 100 UNIT/ML INSULN.PEN SC ×6 (09:20→17:02)
--- NOTE | 2021-08-04 09:44 | PCM.PN.REN ---
Objective Data Objective Data sleeping mild SOB creatinine slightly better Vital Signs: Vital Signs Temp Pulse Resp BP Pulse Ox 98.7 F 90 22 H 104/42 L 22 08/04/21 07:55 08/04/21 07:55 08/04/21 07:55 08/04/21 07:55 08/04/21 07:55 Oxygen Flow Rate (L/min) 15 Oxygen Delivery Method High Flow Weight: 114.1 kg Body Mass Index (BMI) 33.4 Intake & Output: Intake and Output for Last 24 Hours 08/02/21 08/03/21 08/04/21 23:59 23:59 23:59 Intake Total 1530 / 1530 1390 / 1390 110 / 110 Output Total 2600 / 2600 900 / 900 175 / 175 Balance -1070 / -1070 490 / 490 -65 / -65 Lab / Micro Data Result Diagrams: 08/03/21 05:27 08/03/21 05:27 Labs: Laboratory Results - last 24 hr 07/31/21 05:20: Diff Path Review Reviewed 08/02/21 05:23: Diff Path Review Reviewed 08/03/21 05:27: Diff Path Review Reviewed 08/03/21 11:33: POC Glucose 456 H* 08/03/21 16:11: POC Glucose 419 H 08/03/21 21:26: POC Glucose 461 H* 08/04/21 07:55: POC Glucose 395 H Micro: Microbiology 07/28/21 12:35 Blood Culture (Wb) - Anticubital Left Blood Culture - Final No growth in 5 days. 07/27/21 09:30 Blood Culture (Wb) - Anticubital Left Blood Culture - Final No growth in 5 days. 07/25/21 15:20 Blood Culture (Wb) - Pic Blood Culture - Final Staphylococcus aureus 07/24/21 21:55 Sputum, Expectorated/Coughed Gram Stain - Final 07/24/21 21:55 Sputum, Expectorated/Coughed Respiratory Culture - Final Staphylococcus aureus Streptococcus agalactiae (B) 07/24/21 08:55 Urine Catheter - Art Urine Culture - Final Culture exhibits no growth. 07/24/21 05:31 Blood Culture (Wb) - Anticubital Right Blood Culture - Final Staphylococcus aureus 07/24/21 05:20 Blood Culture (Wb) - Left Wrist Blood Culture - Final Staphylococcus aureus 07/24/21 08:10 Mucosa - Nasopharyngeal Respiratory Panel (PCR) - Final 07/24/21 08:20 Urine Catheter - Art Legionella Antigen - Final 07/24/21 08:20 Urine Catheter - Art Streptococcus pneumoniae Antigen (M - Final 07/24/21 04:44 Nasal Secretion SARS-CoV-2 Antigen (Rapid) - Final Physical Exam Narrative Alert awake oriented x 3 no obvious distress no pallor no icterus no JVD s1s2 no murmurs lungs clear abdomen soft no organomegaly no edema no cyanosis Assessment & Plan Assessment/Plan (1) MIRANDA (acute kidney injury): PLAN: -The patient has underlying chronic kidney disease with serum creatinine of 1.5 mg/dL at baseline. -MIRANDA was initially prerenal with fractional excretion of sodium of less than 1% on 07/24/2021. Prerenal MIRANDA has likely evolved to ATN. -Serum creatinine peaked at 3.60 mg/dL on 07/24/2021. -There has been a gradual improvement in renal function with creatinine coming down to 2.32 mg/dL serum creatinine increased from baseline due to diuresis. -BUN 88 and mild Contraction alaklosis decrease diuresis his HB 16 likley now IV volume depleted (2) DKA (diabetic ketoacidosis): QUALIFIERS: Diabetes mellitus type: type 2 Diabetes mellitus complication detail: without coma Qualified Code(s): E11.10 - Type 2 diabetes mellitus with ketoacidosis without coma PLAN: -Resolved. Management as per primary service. (3) Acute hypoxemic respiratory failure: PLAN: -He is being treated for possible pneumonia and fluid overload (4) CHF exacerbation: QUALIFIERS: Heart failure type: unspecified Qualified Code(s): I50.9 - Heart failure, unspecified PLAN: -Cardiology following.
[2021-08-04] MEDS: Finasteride 5 MG Tablet PO (11:09)
[2021-08-04] MEDS: APIXABAN 2.5 MG TABLET PO (11:09)
[2021-08-04] MEDS: Allopurinol 300 MG Tablet PO (11:09)
[2021-08-04] MEDS: Menthol/Lanolin/Calamine/Znox 113 GM Tube 1 APPLIC TOPICAL (11:09)
[2021-08-04] MEDS: Aspirin E.C. 81 MG Tablet PO (11:09)
[2021-08-04] MEDS: Furosemide 40 MG Tablet PO (11:09)
[2021-08-04] MEDS: Pantoprazole Sodium 40 MG Tablet PO (11:09)
[2021-08-04] MEDS: Metoprolol Tartrate 25 MG Tablet 12.5 MG PO (11:09)
[2021-08-04] MEDS: guaiFENesin 1,200 MG Tablet 1200 MG PO (11:09)
[2021-08-04 11:41] LABS: Bedside Glucose 355 mg/dL (74-106)
[2021-08-04] MEDS: Cefazolin 2 GM in 0.9% Normal Saline 100 ML IV (11:54)
[2021-08-04] MEDS: 0.9% Saline Lock 10 ML Syringe IV (11:54)
--- NOTE | 2021-08-04 12:12 | DCINST_ITS ---
Discharge Instructions Diet Discharge Diet: No restrictions Activity Discharge Activity: No Restrictions Dressing / Incision Call your doctor if you observe: Shortness of breath and Uncontrolled pain Follow Up Care Test Results: Test results from this visit will be discussed in further detail at your follow-up appointment, if applicable. Discharge Plan Admission Admit Date/Time: 07/24/21 06:07 Primary Reason for Your Visit: Septic Shock, Resp Failure, MSSA PNA/Bacteremia, NSTEMI, DKA, MIRANDA, CHF Exac Attending Provider: Suzie Francois Primary Care Provider: Alexandro Lovell Consulting Providers: Edouard Ballesteros ; Dexter Hobbs ; Frank Aj ; Domi Killian ; Primitivo Parkinson ; Tanner Alford ; Jud Stone ; Singh Siddiqi ; Jose Manuel Abreu ; Ryan Gallego ; Susan Vela ; April Egan ; Dar Matthew ; Yari Ryan ; Ann Vazquez ; Sarah Sosa ; Malathi Lawson SWING TENDER Instructions Patient Instructions: Hospice The Importance of ..., Hospice Dyspnea Care, Hospice: As Nears Additional Instructions / Restrictions: MEDICATIONS STARTED UPON ADMISSION HAVE BEEN CONTINUED; HOWEVER, GIVEN PLANNED HOSPICE TRANSITION TO HOME MAY CERTAINLY CONSIDER DISCONTINUATION OF YOUR HOME MEDICATIONS AND THESE MEDICATIONS WITH FOCUS ONLY ON COMFORT MEDICATIONS. IF YOU CONTINUE THE CURRENT DISCHARGE MEDICATION REGIMEN PLEASE TRANSITION TO YOUR HOME CHRONIC STEROIDS ONCE YOU COMPLETE THE TAPER. Discharge Orders/Prescriptions Prescriptions: New metoprolol tartrate 25 mg Tablet 12.5 mg PO BID 30 Days Qty: 60 RF: 0 menthol-zinc oxide [Calmoseptine] 0.44-20.6 % Ointment 1 applic topical BID 30 Days Qty: 113 RF: 0 ipratropium-albuterol 0.5 mg-3 mg(2.5 mg base)/3 mL Solution For Nebulization 3 ml inhalation Q4HWA.RT 214 Days Qty: 180 RF: 0 insulin lispro [Humalog KwikPen Insulin] 100 unit/mL Insulin Pen 1 - 7 unit subcut ACHS 30 Days Qty: 15 RF: 0 Lantus Solostar U-100 Insulin 100 unit/mL (3 mL) Insulin Pen 15 unit subcut BID 30 Days Qty: 9 RF: 0 albuterol sulfate 2.5 mg /3 mL (0.083 %) Solution For Nebulization 2.5 mg inhalation Q2H PRN PRN (Reason: Dyspnea, wheezing) 30 Days Qty: 180 RF: 0 prednisone 10 mg tablet See Taper mg PO UD 9 Days Qty: 9 RF: 0 linezolid 600 mg tablet 600 mg PO BID 10 Days Qty: 20 RF: 0 Continued allopurinol 300 mg tablet 300 mg PO DAILY RF: 0 pantoprazole 40 mg tablet,delayed release (DR/EC) 40 mg PO DAILY RF: 0 rosuvastatin 10 mg tablet 10 mg PO QHS RF: 0 meclizine 12.5 mg tablet 12.5 mg PO TID PRN (Reason: Dizziness) RF: 0 (DME) Acapella See Rx Instructions .ROUTE .MEDSUPPLY Qty: 1 RF: 0 azithromycin 250 mg tablet 250 mg PO DAILY RF: 0 levothyroxine 125 MCG tablet 125 mcg PO DAILY RF: 0 acetaminophen 500 MG tablet 1,000 mg PO Q6H PRN (Reason: Mild Pain (-07/23)) RF: 0 dutasteride 0.5 MG capsule 0.5 mg PO DAILY RF: 0 tamsulosin 0.4 MG capsule 0.4 mg PO DAILY@1730 RF: 0 Mucus Relief ER 1,200 mg tablet extended release 12hr 1,200 mg PO BID RF: 0 Eliquis 5 mg tablet 2.5 mg PO DAILY RF: 0 furosemide 40 mg Tablet 40 mg PO BIDLX 30 Days Qty: 60 RF: 0 prednisone 10 mg Tablet 10 mg PO DAILY RF: 0 aspirin 81 mg tablet,delayed release (DR/EC) 81 mg PO DAILY RF: 0 budesonide 0.5 mg/2 mL suspension for nebulization 0.5 mg inhalation BID Qty: 120 RF: 6 ipratropium-albuterol 0.5 mg-3 mg(2.5 mg base)/3 mL solution for nebulization 3 ml inhalation Q4H Qty: 180 RF: 6 Referrals / Follow Up: Frank Aj DO [STAFF PHYSICIAN] - (May follow-up as needed with Pulmonary given transition to Hospice.) Tanner Alford MD [STAFF PHYSICIAN] - (May follow-up with Nephrology as needed given hospice transition.) Yari Ryan MD [STAFF PHYSICIAN] - (Continue to follow with Hospice at home.) Alexandro Lovell MD [Primary Care Provider] - (May follow-up as needed given Hospice home transition.) Zac Parker MD [STAFF PHYSICIAN] - (May follow-up with Cardiology as needed given planned transition to Hospice.) Dexter Hobbs MD [STAFF PHYSICIAN] - (May follow-up as needed or contact with questions regarding infections treated during recent admission given transition to Hospice.) Disposition Disposition (needs filled in before D/C Order can be placed): Hospice in Home
--- NOTE | 2021-08-04 12:15 | PCM.DC.SUM ---
Providers Date of Admission: 07/24/21 Primary Care Physician: Dr. Alexandro Lovell MD Consultations 07/24/21 07:12 Consult: Cardiology Routine Consulting Provider: Edouard Ballesteros Reason for Consult: NSTEMI, setting resp failure, PNA, COPD, MIRANDA, DKA EMERGENT Consult: No MD Notified: Yes Date Notified: 07/24/21 Time Notified: 06:08 Method of Notification: per ED. Consult: Fur Polisher / Pulmonary Medicine Routine Consulting Provider: Frank Aj Reason for Consult: Resp failure, PNA, COPD, NSTEMI, DKA EMERGENT Consult: No MD Notified: Yes Date Notified: 07/24/21 Time Notified: 06:09 Method of Notification: cortext 07/24/21 10:31 Consult: Nephrology Routine Consulting Provider: [facility] [place] Reason for Consult: MIRANDA EMERGENT Consult: No Notified: Yes Date Notified: 07/24/21 Time Notified: 10:41 Method of Notification: Answering Service 07/25/21 14:56 Consult: Infectious Disease Routine Consulting Provider: Dexter Hobbs Reason for Consult: STAPH BACTEREMIA EMERGENT Consult: No Notified: Yes Date Notified: 07/27/21 Time Notified: 07:39 Method of Notification: Text 08/03/21 14:09 Consult: Hospice / Palliative Care Routine Consulting Provider: [facility] Reason for Consult: Home hospice evaluation per family and patient request. EMERGENT Consult: No Notified: Yes Date Notified: 08/03/21 Time Notified: 14:09 Method of Notification: Page Reason For Visit: RESP FAILURE, PNA, COPD EXAC, DKA, MIRANDA, NSTEMI Diagnosis Discharge Diagnosis (1) MIRANDA (acute kidney injury): Status: Acute Code(s): N17.9 - Acute kidney failure, unspecified (2) DKA (diabetic ketoacidosis): Status: Acute Code(s): E11.10 - Type 2 diabetes mellitus with ketoacidosis without coma Qualifiers: Diabetes mellitus type: type 2 Diabetes mellitus complication detail: without coma Qualified Code(s): E11.10 - Type 2 diabetes mellitus with ketoacidosis without coma (3) Acute hypoxemic respiratory failure: Status: Acute Code(s): J96.01 - Acute respiratory failure with hypoxia (4) CHF exacerbation: Status: Chronic Code(s): I50.9 - Heart failure, unspecified Qualifiers: Heart failure type: unspecified Qualified Code(s): I50.9 - Heart failure, unspecified Medications at Discharge Home Medications levothyroxine 125 mcg PO DAILY 03/28/18 acetaminophen 1,000 mg PO Q6H PRN tab 07/25/18 allopurinol 300 mg tablet 300 mg PO DAILY 07/27/18 pantoprazole 40 mg tablet,delayed release 40 mg PO DAILY 08/16/18 rosuvastatin 10 mg tablet 10 mg PO QHS tab 02/11/20 dutasteride 0.5 mg PO DAILY 02/18/20 Mucus Relief ER 1,200 mg PO BID 01/14/21 tamsulosin 0.4 mg PO DAILY@1730 01/14/21 budesonide 0.5 mg/2 mL suspension for nebulization 0.5 mg INHALATION BID #120 ml 01/27/21 Eliquis 2.5 mg PO DAILY 03/09/21 furosemide 40 mg PO BIDLX 30 Days #60 tab 03/11/21 azithromycin 250 mg tablet 250 mg PO DAILY 04/22/21 ipratropium 0.5 mg-albuterol 3 mg (2.5 mg base)/3 mL nebulization soln 3 ml INHALATION Q4H #180 ml 05/05/21 meclizine 12.5 mg tablet 12.5 mg PO TID PRN 06/04/21 Acapella #1 ea 06/23/21 aspirin 81 mg PO DAILY 07/24/21 prednisone 10 mg PO DAILY 07/24/21 albuterol sulfate 2.5 mg INHALATION Q2H PRN PRN 30 Days #180 ml 08/04/21 insulin glargine [Lantus Solostar U-100 Insulin] 15 unit SUBCUT BID 30 Days #9 ml 08/04/21 insulin lispro [Humalog KwikPen Insulin] 1 - 7 unit SUBCUT ACHS 30 Days #15 ml 08/04/21 ipratropium-albuterol 3 ml INHALATION Q4HWA.RT 214 Days #180 ml 08/04/21 linezolid 600 mg PO BID 10 Days #20 tab 08/04/21 menthol-zinc oxide [Calmoseptine] 1 applic TOPICAL BID 30 Days #113 g 08/04/21 metoprolol tartrate 12.5 mg PO BID 30 Days #60 tab 08/04/21 prednisone See Taper PO UD 9 Days #9 tab 08/04/21 Hospital Course Operations None Procedures 2-D Echocardiogram, EKG and Transesophageal Echo Summary of Care Provided Minutes Spent on Discharge: 35 Hospital Course: Discharge Diagnoses: #1. Acute Septic Shock secondary to Acute on Chronic Hypoxic Respiratory Failure secondary to Acute MSSA Pneumonia and concurrent Acute on Chronic COPD Exacerbation with underlying Pulmonary Fibrosis and Recent COVID-19 Acute Viral illness #2. Chest Pain w/ Acute NSTEMI, type II secondary to #1 demand with Cardiomyopathy, unclear type #3. Acute DKA w/ Diabetes mellitus type II #4. MIRANDA on CKD stage III unclear subtype #5. Acute on Chronic Diastolic CHF w/ Cardiomyopathy, unclear type #6. Carotid disease #7. CAD s/p CABG x 2 (06/23/2018 with a TANNER to the LAD and SVG to OM1) #8. PAF #9. Chronic anemia, macrocytic #10. Hypertension #11. Hyperlipidemia #12. Hypothyroidism #13. BPH #14. Gout #15. GERD #16. Depression and Anxiety #16. AROLDO on BIPAP q HS. #17. Sick Sinus Syndrome s/p pacemaker placement #18. CODE STATUS: DNR-CC. Discharge Summary: The patient is an 85 y/o M w/ PMHx: Diabetes mellitus type II, Former Tobacco use, CKD stage III unclear subtype, HTN, HLD, CAD s/p LA and CABG x 2, Hx Sick sinus syndrome s/p pacemaker placement, PAF, AROLDO, Chronic anemia, Chronic hypoxic respiratory failure secondary to underlying COPD, pulmonary fibrosis following with Dr. Song 87% on room air without any oxygen, Scl-70 Antibody Positive, Hx COVID illness who presented to the [facility] ED on 07/24/21 with history of ongoing chest discomfort described as a pressure, midsternal without radiation over the last 48 hours however became more constant the day prior with worsening associated dyspnea and upon going to bed the evening prior he forgot to connect his oxygen to his CPAP machine and awoke with significant dyspnea although he does also admit recent mildly productive cough but no fevers or chills. Patient was admitted to the ICU, various exceptionalities teacher consulted and followed, SARS Covid rapid antigen negative, blood culture immediately with noted MSSA, respiratory panel negative, antigens negative, urine culture with no growth, sputum culture did grow streptococcal organism as well as staph aureus with most recent repeat blood cultures 07/28/2021 with no growth, antibiotics initially broadened to vancomycin and Zosyn eventually narrowed to IV Ancef per infectious disease, continued on IV steroid regimen, continued BiPAP nightly and attempted to de-escalate oxygen supplementation however remained 10-15L, OBINNA 07/31/2021 with EF 35%, moderately enlarged LA, no thrombus detected in the atrial appendage, mild MVI, mild TVI, bubble contrast study negative, ICD or pacer leads present. Despite aggressive interventions and continued evaluation per pulmonary, cardiology as well as infectious disease patient with significantly prolonged admission and eventually on 08/03/2021 patient elected to have evaluation by hospice with initiation of hospice at home. ID recommended upon discharge consideration for 10 day course of linezolid 600 mg po BID. Patient upon presentation with elevated troponin 128 increased to 158 with no further trending beyond this, initially placed on a heparin drip with cardiology evaluation, follow-up echocardiogram as noted with reduced EF decreased from 50% 03/10/2021 down to 25 to 30% with severe LV systolic reduced function and global LV hypokinesis with unclear etiology specifically for patient cardiomyopathy. Given patient respiratory status and acute presentation any intervention was deferred. Maintained on aspirin, statin, initially held beta-randa given blood pressures but this was resumed as well. Patient with initial evidence of DKA with initiation of insulin drip in the ED and continuation upon ICU transition with eventual closure once gap closed and transition to subcu long-acting insulin with short acting insulin overlap as well as ADA diet, nutrition consultation and insulin sliding scale. Patient with underlying chronic kidney disease with baseline creatinine 1.5, initially prerenal with fractional excretion of sodium less than 1% on 07/24/2021 which likely evolved into ATN with serum creatinine peak 3.60 on 07/24/2021 with gradual improvement; however, certainly could be confounded by diuretic usage, 08/03/2021 BUN/creatinine 88/2.32 given labs deferred 08/04/21 with hospice transition. Transitioned 08/03/21 to oral lasix. Patient met with hospice on 08/04/21 and was discharged to home with hospice. Medications were ordered at his discharge including insulin regimen, ISS, aerosols, linezolid and those as noted altered; however, did note that his was not absolutely necessary given planned hospice transition and that follow-up with consultants was also not necessary given his hospice transition but noted he could follow-up if he preferred. Discharge Time: > 35 Minutes DAY OF DISCHARGE PROGRESS NOTE: Subjective: Patient without acute event overnight per self and nursing report. Patient remained on high flow oxygen. Patient notes feeling more comfortable than day prior. He notes less dry mouth this AM. He notes confirmation of hospice intention to home. Patient denies fever, chills, nausea, emesis, abdominal pain, chest pain. Patient will be discharged with follow-up w/ consultants per his preference given hospice transition. Objective: T 98.7, heart rate 90, BP 104/42, respiratory rate 22, 99% on 15 L nasal cannula. Physical Examination: General: awake, alert, oriented x 3 and cooperative, seated upright in the PCU bed, denies any acute complaints, appears still dyspneic with attempted discussions. Skin: normal color, normal turgor, no icterus, no cyanosis except occasional staged ecchymoses. HEENT: AT/NC, EOMI, PERRLA, mildly improved dry MM. Lungs: Diffusely diminished, greater bases, mildly increased work of breathing, mildly increased respiratory rate but no obvious distress despite high flow oxygen, no markedly noted rales, ronchi or wheezing; Heart: Currently regular rate and rhythm; no gallop, rub audible. Abdomen: soft, obese NTTP, ND, distant normal BS. Extremities: no cyanosis, no clubbing, mild bilateral ankle not markedly pitting edema Neurological: patient awake, alert, oriented as noted; cognitive function appears intact upon questioning,; pupils equally reactive to light and accomodation; cranial nerves II-XII grossly normal, moving all 4 extremities, strength severely globally decreased. Psychiatric: affect appears fatigued, more cheerful today, notes intention for hospice at home transition, no acute evidence of depressive or anxiety feelings. Assessment and Plan: Please see hospital summary above. Weight / BMI Weight Weight: 251 lb 8.759 oz Body Mass Index (BMI) 33.4 ABG / Lab / Microbiology Data Result Diagrams: 08/03/21 05:27 08/03/21 05:27 Laboratory: Laboratory Results - last 24 hr 07/31/21 05:20: Diff Path Review Reviewed 08/02/21 05:23: Diff Path Review Reviewed 08/03/21 05:27: Diff Path Review Reviewed 08/03/21 16:11: POC Glucose 419 H 08/03/21 21:26: POC Glucose 461 H* 08/04/21 07:55: POC Glucose 395 H 08/04/21 11:15: POC Glucose 355 H Microbiology: Microbiology 07/28/21 12:35 Blood Culture (Wb) - Anticubital Left Blood Culture - Final No growth in 5 days. 07/27/21 09:30 Blood Culture (Wb) - Anticubital Left Blood Culture - Final No growth in 5 days. 07/25/21 15:20 Blood Culture (Wb) - Pic Blood Culture - Final Staphylococcus aureus 07/24/21 21:55 Sputum, Expectorated/Coughed Gram Stain - Final 07/24/21 21:55 Sputum, Expectorated/Coughed Respiratory Culture - Final Staphylococcus aureus Streptococcus agalactiae (B) 07/24/21 08:55 Urine Catheter - Art Urine Culture - Final Culture exhibits no growth. 07/24/21 05:31 Blood Culture (Wb) - Anticubital Right Blood Culture - Final Staphylococcus aureus 07/24/21 05:20 Blood Culture (Wb) - Left Wrist Blood Culture - Final Staphylococcus aureus 07/24/21 08:10 Mucosa - Nasopharyngeal Respiratory Panel (PCR) - Final 07/24/21 08:20 Urine Catheter - Atr Legionella Antigen - Final 07/24/21 08:20 Urine Catheter - Art Streptococcus pneumoniae Antigen (M - Final 07/24/21 04:44 Nasal Secretion SARS-CoV-2 Antigen (Rapid) - Final D/C Instructions Discharge Diet: No restrictions Call your doctor if you observe: Shortness of breath and Uncontrolled pain Meaningful Use Info Meaningful Use Diagnoses (Choose all that apply): AMI and CHF AMI/Post PCI/Angioplasty Aspirin given w/in 24hrs of arrival?: Yes ASA at discharge?: Yes Antiplatelet Therapy at Discharge:: No Statins at discharge?: Yes Dio/ARB at discharge?: No Reason Dio/ARB not ordered:: Worsening renal dysfunctn Beta Randa at discharge?: Yes Done w/ Acute LA measure.: Yes Documented LVEF (%): 30 CHF DIO/ARB ordered at discharge?: No Reason DIO/ARB not ordered?: Worsening renal disease Documented LVEF (%): 30 Discharge Plan Admission Admit Date/Time: 07/24/21 06:07 Primary Reason for Your Visit: Septic Shock, Resp Failure, MSSA PNA/Bacteremia, NSTEMI, DKA, MIRANDA, CHF Exac Attending Provider: Suzie Francois Primary Care Provider: Alexandro Lovell Consulting Providers: Edouard Ballesteros ; Dexter Hobbs ; Frank Aj ; Domi Killian ; Primitivo Parkinson ; Tanner Alford ; Jud Stone ; Singh Siddiqi ; Jose Manuel Abreu ; Ryan Gallego ; Susan Vela ; April Egan ; Dar Matthew ; Yari Ryan ; Ann Vazquez ; Sarah Sosa ; Malathi Lawson LOCAL HAZMAT DRIVER Instructions Patient Instructions: Hospice The Importance of ..., Hospice Dyspnea Care, Hospice: As Nears Additional Instructions / Restrictions: MEDICATIONS STARTED UPON ADMISSION HAVE BEEN CONTINUED; HOWEVER, GIVEN PLANNED HOSPICE TRANSITION TO HOME MAY CERTAINLY CONSIDER DISCONTINUATION OF YOUR HOME MEDICATIONS AND THESE MEDICATIONS WITH FOCUS ONLY ON COMFORT MEDICATIONS. IF YOU CONTINUE THE CURRENT DISCHARGE MEDICATION REGIMEN PLEASE TRANSITION TO YOUR HOME CHRONIC STEROIDS ONCE YOU COMPLETE THE TAPER. Discharge Orders/Prescriptions Prescriptions: New metoprolol tartrate 25 mg Tablet 12.5 mg PO BID 30 Days Qty: 60 RF: 0 menthol-zinc oxide [Calmoseptine] 0.44-20.6 % Ointment 1 applic topical BID 30 Days Qty: 113 RF: 0 ipratropium-albuterol 0.5 mg-3 mg(2.5 mg base)/3 mL Solution For Nebulization 3 ml inhalation Q4HWA.RT 214 Days Qty: 180 RF: 0 insulin lispro [Humalog KwikPen Insulin] 100 unit/mL Insulin Pen 1 - 7 unit subcut ACHS 30 Days Qty: 15 RF: 0 Lantus Solostar U-100 Insulin 100 unit/mL (3 mL) Insulin Pen 15 unit subcut BID 30 Days Qty: 9 RF: 0 albuterol sulfate 2.5 mg /3 mL (0.083 %) Solution For Nebulization 2.5 mg inhalation Q2H PRN PRN (Reason: Dyspnea, wheezing) 30 Days Qty: 180 RF: 0 prednisone 10 mg tablet See Taper mg PO UD 9 Days Qty: 9 RF: 0 linezolid 600 mg tablet 600 mg PO BID 10 Days Qty: 20 RF: 0 Continued allopurinol 300 mg tablet 300 mg PO DAILY RF: 0 pantoprazole 40 mg tablet,delayed release (DR/EC) 40 mg PO DAILY RF: 0 rosuvastatin 10 mg tablet 10 mg PO QHS RF: 0 meclizine 12.5 mg tablet 12.5 mg PO TID PRN (Reason: Dizziness) RF: 0 (DME) Acapella See Rx Instructions .ROUTE .MEDSUPPLY Qty: 1 RF: 0 azithromycin 250 mg tablet 250 mg PO DAILY RF: 0 levothyroxine 125 MCG tablet 125 mcg PO DAILY RF: 0 acetaminophen 500 MG tablet 1,000 mg PO Q6H PRN (Reason: Mild Pain (-07/23)) RF: 0 dutasteride 0.5 MG capsule 0.5 mg PO DAILY RF: 0 tamsulosin 0.4 MG capsule 0.4 mg PO DAILY@1730 RF: 0 Mucus Relief ER 1,200 mg tablet extended release 12hr 1,200 mg PO BID RF: 0 Eliquis 5 mg tablet 2.5 mg PO DAILY RF: 0 furosemide 40 mg Tablet 40 mg PO BIDLX 30 Days Qty: 60 RF: 0 prednisone 10 mg Tablet 10 mg PO DAILY RF: 0 aspirin 81 mg tablet,delayed release (DR/EC) 81 mg PO DAILY RF: 0 budesonide 0.5 mg/2 mL suspension for nebulization 0.5 mg inhalation BID Qty: 120 RF: 6 ipratropium-albuterol 0.5 mg-3 mg(2.5 mg base)/3 mL solution for nebulization 3 ml inhalation Q4H Qty: 180 RF: 6 Referrals / Follow Up: Frank Aj DO [STAFF PHYSICIAN] - (May follow-up as needed with Pulmonary given transition to Hospice.) Tanner Alford MD [STAFF PHYSICIAN] - (May follow-up with Nephrology as needed given hospice transition.) Yari Ryan MD [STAFF PHYSICIAN] - (Continue to follow with Hospice at home.) Aleaxndro Lovell MD [Primary Care Provider] - (May follow-up as needed given Hospice home transition.) Zac Parker MD [STAFF PHYSICIAN] - (May follow-up with Cardiology as needed given planned transition to Hospice.) Dexter Hobbs MD [STAFF PHYSICIAN] - (May follow-up as needed or contact with questions regarding infections treated during recent admission given transition to Hospice.) Disposition Disposition (needs filled in before D/C Order can be placed): Hospice in Home Charges/Coding Visit Charges Inpatient E&M: 20537 Disch Hosp
--- NOTE | 2021-08-04 13:15 | CASEMGMT ---
Maggie from Hospice met with patient and his and they signed Hospice papers. SW met with patient's and let her know that SW will set up transportation once SW knows for sure all of the equipment is in the home. Plan: home with [facility]. SW will arrange transport. Edie MITCHELL
--- NOTE | 2021-08-04 15:56 | CASEMGMT ---
CRISTIANA received a phone call from patient's and she said all of the equipment was delivered. CRISTIANA arranged for patient to get picked up at 5p via cot. SW notified patient's . SW let her know sometimes they run late, but staff will try and keep her updated. CRISTIANA also notified Silvano at Hospice, RN, and van owner operator. Plan: d/c home with [facility]. Edie MITCHELL
[2021-08-04] MEDS: Albuterol 2.5 MG/3 ML VIAL.NEB. INHALATION (17:00)
[2021-08-04 17:06] LABS: Bedside Glucose 285 mg/dL (74-106)
== END 2021-08-04 18:44 | disposition hospice, home (50) | DRG 871 ==
LOC: ED 05:52 → ICU 06:20 → PCU 07-27 16:10
PROVIDERS: Family Medicine; Internal Medicine; Internal Medicine Critical Care Medicine; Nurse Practitioner Adult Health; Admitting Provider Family Medicine; Emergency Provider Emergency Medicine; PCP Family Medicine; Visit Provider Family Medicine
DX: A41.01 Sepsis due to Methicillin susceptible Staphylococcus aureus (principal); I21.A1 Myocardial infarction type 2; J96.21 Acute and chronic respiratory failure with hypoxia; N17.0 Acute kidney failure with tubular necrosis; I50.33 Acute on chronic diastolic (congestive) heart failure; E11.10 Type 2 diabetes mellitus with ketoacidosis without coma; J15.211 Pneumonia due to Methicillin susceptible Staphylococcus aureus; I13.0 Hypertensive heart and chronic kidney disease with heart failure and stage 1 through stage 4 chronic kidney disease, or unspecified chronic kidney disease; I42.9 Cardiomyopathy, unspecified; J44.0 Chronic obstructive pulmonary disease with (acute) lower respiratory infection; I95.9 Hypotension, unspecified; I49.5 Sick sinus syndrome; E66.01 Morbid (severe) obesity due to excess calories; J84.10 Pulmonary fibrosis, unspecified; I48.0 Paroxysmal atrial fibrillation; R65.20 Severe sepsis without septic shock; E11.22 Type 2 diabetes mellitus with diabetic chronic kidney disease; Z79.4 Long term (current) use of insulin; N18.31 Chronic kidney disease, stage 3a; D63.8 Anemia in other chronic diseases classified elsewhere; G47.33 Obstructive sleep apnea (adult) (pediatric); I44.0 Atrioventricular block, first degree; I25.10 Atherosclerotic heart disease of native coronary artery without angina pectoris; K21.9 Gastro-esophageal reflux disease without esophagitis; M10.9 Gout, unspecified; E78.5 Hyperlipidemia, unspecified; E03.9 Hypothyroidism, unspecified; I25.2 Old myocardial infarction; M19.90 Unspecified osteoarthritis, unspecified site; D53.9 Nutritional anemia, unspecified; N40.0 Benign prostatic hyperplasia without lower urinary tract symptoms; I65.29 Occlusion and stenosis of unspecified carotid artery; Z95.1 Presence of aortocoronary bypass graft; F32.A Depression, unspecified; Z87.19 Personal history of other diseases of the digestive system; Z86.19 Personal history of other infectious and parasitic diseases; Z95.0 Presence of cardiac pacemaker; Z79.82 Long term (current) use of aspirin; Z79.899 Other long term (current) drug therapy; Z87.891 Personal history of nicotine dependence; Z68.33 Body mass index [BMI] 33.0-33.9, adult; U09.9 Post COVID-19 condition, unspecified; I49.3 Ventricular premature depolarization; Z66 Do not resuscitate; Z79.01 Long term (current) use of anticoagulants
CPT/HCPCS: 36415; 36569; 36600; 71045; 80048; 80053; 80061; 80202; 82009; 82570; 82803; 82962; 83036; 83605; 83735; 83880; 84100; 84300; 84484; 85025; 85610; 85730; 87040; 87070; 87077; 87086; 87186; 87205; 87449; 87633; 87641; 87811; 92526; 92610; 93005; 93306; 93312; 93320; 93325; 94002; 94003; 94640; 94660; 94667; 94668; 94762; 97110; 97162; 97165; 97530; 97535; 97803; 99251; 99285; J7030; J7040; J7050; Q9957; A4216; C8929; G0463; J1940; J7799